=== PATIENT | male | born 1945 | race Caucasian/White ===

== ENCOUNTER → 2016-08-09 | Outpatient (CLI) | payer OTHER, BC ==
[~2016-08-09] MED LIST: ATOR-26 PO; B-CO1CAP17 PO; B-COCAP2 PO; BYS/5 PO; CALC0.5C17 PO; CHOL2000 PO; CLOP1TAB15 PO; CYAN100020 PO; FOLI1TAB7 PO; INSPMPHMLG; IRON PO; IRON1CAP2 PO; MAGN400T6 PO; MISCCAP80 PO; MULT-190 PO; PANT40TA PO; ZVR400 PO
[2016-08-09 10:27] LABS: ESTIMATED AVERAGE GLUCOSE 157 mg/dl; HA1C FLAG Normal (Normal)
[2016-08-09 10:43] LABS: ALT/SGPT 41 U/L (12-78); BLOOD UREA NITROGEN 46 mg/dl (7-18); CALCIUM 9.5 mg/dl (8.5-10.1); CARBON DIOXIDE 23 mmol/L (21-32); CHLORIDE 113 mmol/L (98-107); CHOLESTEROL 83 mg/dl (0-200); GLUCOSE 87 mg/dl (70-99); POTASSIUM 5.6 mmol/L (3.5-5.1); SODIUM 144 mmol/L (136-145)
[2016-08-09 10:47] LABS: ALKALINE PHOSPHATASE 165 U/L (45-117); AST/SGOT 40 U/L (15-37); CHOLESTEROL/HDL RATIO 2.4; HDL CHOLESTEROL 35 mg/dl; LDL CHOLESTEROL CALCULATED 37 mg/dl; PHOSPHORUS 2.3 mg/dl (2.5-4.9); TRIGLYCERIDES 54 mg/dl (0-150); VERY LOW DENSITY LIPOPROT CALC 11 mg/dl
== END | disposition home or self-care (01) ==
LOC: C.LAB1850 09:04
PROVIDERS: ATTEND Internal Medicine Endocrinology, Diabetes & Metabolism
DX: E10.21 Type 1 diabetes mellitus with diabetic nephropathy (principal)

== ENCOUNTER → 2016-10-03 | Outpatient (CLI) | payer OTHER, BC ==
[~2016-10-03] MED LIST changes: +CALC0.5C PO; -CALC0.5C17 PO; +CIPR-255 PO; +HYDR-3419 PO; +OXYC7.5T65 PO; +PHEN-775 PO
[2016-10-03 12:06] LABS: HEMATOCRIT 35.5 % (42-52); MEAN CELL VOLUME 97.5 fL (80-100); MEAN CORPUSCULAR HEMOGLOBIN 32.7 pg (25-34); MEAN CORPUSCULAR HGB CONC 33.5 g/dl (32-36); MEAN PLATELET VOLUME 9.8 fL (7.4-10.4); PLATELET COUNT 172 K/uL (130-400); RED BLOOD COUNT 3.64 M/uL (4.7-6.1); WHITE BLOOD COUNT 8.05 K/uL (4.8-10.8)
[2016-10-03 12:19] LABS: CALCIUM 9.4 mg/dl (8.5-10.1)
[2016-10-03 12:25] LABS: BLOOD UREA NITROGEN 51 mg/dl (7-18); BUN/CREATININE RATIO 23.1 (10-20); CARBON DIOXIDE 25 mmol/L (21-32); CHLORIDE 112 mmol/L (98-107); GLUCOSE 92 mg/dl (70-99); PHOSPHORUS 2.9 mg/dl (2.5-4.9); SODIUM 143 mmol/L (136-145)
[2016-10-03 12:46] LABS: URINE PROTIEN/CREAT RATIO 0.6 (0-0.2); URINE TOTAL PROTEIN 57.7 mg/dl (0-11.9)
[2016-10-03 12:55] LABS: URINE APPEARANCE CLEAR (CLEAR); URINE BILIRUBIN NEG (NEG); URINE COLOR YELLOW; URINE EPITHELIAL CELL AUTO 0-5 /lpf (0-5); URINE NITRITE NEG (NEG); URINE SPECIFIC GRAVITY 1.016 (1.000-1.030); UROBILINOGEN NEG (NEG)
[2016-10-03 13:09] LABS: MANUAL MICROSCOPIC REQUIRED? NO; REVIEW REQ? NO
== END | disposition home or self-care (01) ==
LOC: C.LAB1850 10:33
PROVIDERS: ATTEND Internal Medicine Nephrology
DX: N18.3 Chronic kidney disease, stage 3 (moderate) (principal); I12.9 Hypertensive chronic kidney disease with stage 1 through stage 4 chronic kidney disease, or unspecified chronic kidney disease; N25.81 Secondary hyperparathyroidism of renal origin; D64.9 Anemia, unspecified

== ENCOUNTER → 2016-11-11 | Outpatient (CLI) | payer OTHER, BC ==
[2016-11-11 12:24] LABS: BASO ABS # 0.06 K/uL (0-0.2); COMPLETE YES; EOS % 4.4 %; HEMATOCRIT 36.2 % (42-52); IG% 0.2 %; LYMPH % 16.1 %; LYMPH ABS # 0.92 K/uL (1.2-3.4); MEAN CELL VOLUME 96.3 fL (80-100); MEAN CORPUSCULAR HEMOGLOBIN 32.2 pg (25-34); MEAN CORPUSCULAR HGB CONC 33.4 g/dl (32-36); MEAN PLATELET VOLUME 9.8 fL (7.4-10.4); MONO % 15.2 %; NEUT % 63.1 %; PLATELET COUNT 166 K/uL (130-400); RED BLOOD COUNT 3.76 M/uL (4.7-6.1); WHITE BLOOD COUNT 5.72 K/uL (4.8-10.8)
[2016-11-11 12:44] LABS: BLOOD UREA NITROGEN 47 mg/dl (7-18); BUN/CREATININE RATIO 22.1 (10-20); CARBON DIOXIDE 22 mmol/L (21-32); CHLORIDE 110 mmol/L (98-107); GLUCOSE 136 mg/dl (70-99); POTASSIUM 4.9 mmol/L (3.5-5.1); SODIUM 142 mmol/L (136-145)
[2016-11-11 12:45] LABS: ESTIMATED AVERAGE GLUCOSE 148 mg/dl; HA1C FLAG Normal (Normal); PHOSPHORUS 2.8 mg/dl (2.5-4.9)
[2016-11-11 12:58] LABS: RATIO 194.6 mcg/mg (0-30.0)
--- NOTE | 2016-11-15 11:45 | CODING QUERY MEDICAL NECESSITY ---
SUPPORTING DIAGNOSIS NEEDED Dr. Vogel, A supporting diagnosis is required for the test/procedure performed on this patient in order for us to be reimbursed by the patient's insurance. Please provide a supporting diagnosis for the following test/procedure listed below next to the test name along with your signature. *If there is no additional diagnosis for this patient that would support the following test/procedure please document that below next to the test/procedure. Test(s)/Procedure(s) that require a supporting diagnosis: * ([id number]) VITAMIN D ASSAY DIAGNOSIS: DATE OF SERVICE: 11/11/16 Provider Signature: Date: Thank you [facility] Information Management Once completed, please kindly fax back to [phone] For questions please call [phone]
== END | disposition home or self-care (01) ==
LOC: C.LAB1850 10:30
PROVIDERS: ATTEND Internal Medicine Endocrinology, Diabetes & Metabolism
DX: Z98.890 Other specified postprocedural states (principal); E10.40 Type 1 diabetes mellitus with diabetic neuropathy, unspecified; K90.9 Intestinal malabsorption, unspecified; N18.3 Chronic kidney disease, stage 3 (moderate)

== ENCOUNTER → 2016-12-05 | Outpatient (CLI) | payer OTHER, BC ==
[~2016-12-05] MED LIST changes: -CALC0.5C PO; +CALC0.5C17 PO; -CIPR-255 PO; -OXYC7.5T65 PO; -PHEN-775 PO
--- NOTE | 2016-12-05 15:00 | DIAGNOSTIC IMAGING REPORT ---
KUB CLINICAL HISTORY: NEPHROLITHIASIS, RIGHT URETERAL STONES nephrocalcinosis COMPARISON STUDY: 12/28/2015 FINDINGS: The soft tissues, psoas shadows, renal outlines and intestinal gas pattern appear normal. There is no evidence for bowel obstruction. No abnormal abdominal calcifications are seen. Stable postoperative changes left upper quadrant. Pelvic vascular calcifications. Nonobstructive bowel pattern. IMPRESSION: Negative study. No change from the prior exam. Electronically signed by: Conner Hadley M.D. 12/05/2016 2:59 PM Dictated Date/Time: 12/05/2016 2:58 PM
[2016-12-05 16:36] LABS: HEMATOCRIT 34.9 % (42-52); MEAN CELL VOLUME 97.2 fL (80-100); MEAN CORPUSCULAR HEMOGLOBIN 32.3 pg (25-34); MEAN CORPUSCULAR HGB CONC 33.2 g/dl (32-36); MEAN PLATELET VOLUME 9.9 fL (7.4-10.4); PLATELET COUNT 165 K/uL (130-400); RED BLOOD COUNT 3.59 M/uL (4.7-6.1); WHITE BLOOD COUNT 7.13 K/uL (4.8-10.8)
[2016-12-05 16:37] LABS: URINE APPEARANCE CLEAR (CLEAR); URINE BILIRUBIN NEG (NEG); URINE COLOR YELLOW; URINE NITRITE NEG (NEG); UROBILINOGEN NEG (NEG); ZZUR CULT IF INDIC CLEAN CATCH NO
[2016-12-05 16:39] LABS: MANUAL MICROSCOPIC REQUIRED? NO; REVIEW REQ? NO
[2016-12-05 17:08] LABS: BLOOD UREA NITROGEN 52 mg/dl (7-18); BUN/CREATININE RATIO 23.7 (10-20); CALCIUM 9.4 mg/dl (8.5-10.1); CARBON DIOXIDE 22 mmol/L (21-32); CHLORIDE 113 mmol/L (98-107); GLUCOSE 152 mg/dl (70-99); POTASSIUM 4.9 mmol/L (3.5-5.1); SODIUM 142 mmol/L (136-145)
[2016-12-05 17:11] LABS: URINE PROTIEN/CREAT RATIO 0.6 (0-0.2); URINE TOTAL PROTEIN 69.5 mg/dl (0-11.9)
[2016-12-05 17:13] LABS: PHOSPHORUS 2.6 mg/dl (2.5-4.9); PROSTATE SPECIFIC ANTIGEN 0.264 ng/ml (0.000-4.000)
== END | disposition home or self-care (01) ==
LOC: C.RAD1850 14:40
PROVIDERS: ATTEND Urology
DX: N20.1 Calculus of ureter (principal); N18.3 Chronic kidney disease, stage 3 (moderate); I12.9 Hypertensive chronic kidney disease with stage 1 through stage 4 chronic kidney disease, or unspecified chronic kidney disease; R60.9 Edema, unspecified; D64.9 Anemia, unspecified; Z12.5 Encounter for screening for malignant neoplasm of prostate; N20.0 Calculus of kidney

== ENCOUNTER → 2017-02-12 | Outpatient (CLI) | payer OTHER, BC ==
--- NOTE | 2017-02-12 08:14 | DIAGNOSTIC IMAGING REPORT ---
ABD/PELVIS NO IV OR ORAL CONT CT DOSE: 839.42 mGy.cm HISTORY: Nephrocalcinosis N20.0 Nephrolithiasis latex [id number] TECHNIQUE: Multiaxial CT images of the abdomen and pelvis were performed without contrast. A dose lowering technique was utilized adhering to the principles of ALARA. COMPARISON STUDY: 01/29/2015 FINDINGS: Chronic pleural and parenchymal change left base. Several calcifications within the left renal pelvis measuring up to 8 mm. No evidence for true obstructive change. Increased number renal calcifications bilaterally although again no true obstructing calculus is identified. Several calcifications occupy the left renal pelvis however. Postoperative changes previously described are stable. Bowel pattern is nonobstructive. IMPRESSION: 1. Bilateral renal calcifications progressive from the prior study of 2014. 2. Several calcifications within the left renal pelvis considered nonobstructive given the lack of hydronephrosis. These measure up to 8 mm. 3. Nonobstructive bowel pattern with stable postoperative change The above report was generated using voice recognition software. It may contain grammatical, syntax or spelling errors. Electronically signed by: Conner Hadley M.D. 02/12/2017 8:13 AM Dictated Date/Time: 02/12/2017 7:52 AM
--- NOTE | 2017-02-12 10:18 | DIAGNOSTIC IMAGING REPORT ---
KUB CLINICAL HISTORY: NEPHROLITHIASIS nephrocalcinosis COMPARISON STUDY: 12/05/2016 FINDINGS: Nonobstructive bowel pattern. Stable postoperative changes overlying the left flank and left kidney. Possible left renal calcifications versus postoperative change mid left kidney. If so, this is present on the prior study. Right kidney is effectively obscured by overlying bowel content the possibility of a small calcification lower pole considered. IMPRESSION: Difficult study to interpret due to overlapping postoperative change and bowel content. Possible stable bilateral nephrocalcinosis. The above report was generated using voice recognition software. It may contain grammatical, syntax or spelling errors. Electronically signed by: Conner Hadley M.D. 02/12/2017 10:17 AM Dictated Date/Time: 02/12/2017 10:16 AM
== END | disposition home or self-care (01) ==
LOC: C.CTS 07:32
PROVIDERS: ATTEND Urology
DX: N20.0 Calculus of kidney (principal)

== ENCOUNTER → 2017-02-17 | Outpatient (CLI) | payer OTHER, BC ==
--- NOTE | 2017-02-17 13:39 | DIAGNOSTIC IMAGING REPORT ---
CHEST 2 VIEWS ROUTINE CLINICAL HISTORY: N20.0 [id number] nephrocalcinosis COMPARISON STUDY: 09/12/2015 FINDINGS: Chronic pleural and parenchymal change left base. Prior median sternotomy. Permanent bipolar cardiac pacemaker. Right lung is clear. IMPRESSION: Chronic and postoperative change left base . No acute process. The above report was generated using voice recognition software. It may contain grammatical, syntax or spelling errors. Electronically signed by: Conner Hadley M.D. 02/17/2017 1:37 PM Dictated Date/Time: 02/17/2017 1:37 PM
== END | disposition home or self-care (01) ==
LOC: C.RAD1850 13:10
PROVIDERS: ATTEND Urology
DX: N20.0 Calculus of kidney (principal); Z98.890 Other specified postprocedural states

== ENCOUNTER → 2017-02-17 | Outpatient (CLI) | payer OTHER, BC ==
[2017-02-17 14:17] LABS: BASO % 0.6 %; BASO ABS # 0.04 K/uL (0-0.2); COMPLETE YES; EOS % 1.9 %; HEMATOCRIT 33.1 % (42-52); IG% 0.3 %; LYMPH % 12.7 %; LYMPH ABS # 0.85 K/uL (1.2-3.4); MEAN CELL VOLUME 95.7 fL (80-100); MEAN CORPUSCULAR HEMOGLOBIN 32.4 pg (25-34); MEAN CORPUSCULAR HGB CONC 33.8 g/dl (32-36); MEAN PLATELET VOLUME 9.8 fL (7.4-10.4); MONO % 12.3 %; NEUT % 72.2 %; PLATELET COUNT 163 K/uL (130-400); RED BLOOD COUNT 3.46 M/uL (4.7-6.1); WHITE BLOOD COUNT 6.69 K/uL (4.8-10.8)
[2017-02-17 14:52] LABS: BLOOD UREA NITROGEN 43 mg/dl (7-18); BUN/CREATININE RATIO 21.4 (10-20); CALCIUM 9.5 mg/dl (8.5-10.1); CARBON DIOXIDE 20 mmol/L (21-32); CHLORIDE 113 mmol/L (98-107); GLUCOSE 115 mg/dl (70-99); POTASSIUM 4.9 mmol/L (3.5-5.1); SODIUM 143 mmol/L (136-145)
== END | disposition home or self-care (01) ==
LOC: C.LAB1850 13:40
PROVIDERS: ATTEND Urology
DX: N20.0 Calculus of kidney (principal)

== ENCOUNTER → 2017-02-21 | Outpatient (CLI) | payer OTHER, BC ==
[~2017-02-21] MED LIST changes: -B-COCAP2 PO; -HYDR-3419 PO; -IRON PO
[2017-02-21 13:15] LABS: ESTIMATED AVERAGE GLUCOSE 151 mg/dl; HA1C FLAG Normal (Normal)
== END | disposition home or self-care (01) ==
LOC: C.LAB1850 10:50
PROVIDERS: ATTEND Internal Medicine Endocrinology, Diabetes & Metabolism
DX: E10.21 Type 1 diabetes mellitus with diabetic nephropathy (principal); E10.22 Type 1 diabetes mellitus with diabetic chronic kidney disease; N18.3 Chronic kidney disease, stage 3 (moderate)

== ENCOUNTER 2017-02-28 17:23 | Emergency (ER) | payer OTHER, BC ==
[~2017-02-28] VITALS: Ht 177.8 cm; Wt 92.7 kg
[~2017-02-28 17:23] MED LIST changes: -ATROPINE SULFATE 0.1 MG/ML 5ML SYR IV PRN; -CIPROFLOXACIN 400MG / D5W IV SCH; -EpHEDrine SULFATE INJ 50 MG/ML AMP IV PRN; -FENTANYL CITRATE INJ 50 MCG/1 ML 2 ML VIAL IV PRN; -FENTANYL CITRATE INJ 50 MCG/1 ML 2 ML VIAL ONE; -LACTATED RINGER'S 1000ML 1,000 ML IV SCH; -LIDOCAINE HCL 2% 2 ML VIAL (20MG/ML) ONE; -MIDAZOLAM HCL 1 MG/ML 2ML VIAL ONE; -ONDANSETRON INJ 2 MG/ML 2 ML VIAL IV PRN; -ONDANSETRON INJ 2 MG/ML 2 ML VIAL ONE; -PROPOFOL IV EMULSION 10 MG/ML 20 ML VIAL IV ONE
[2017-02-28 17:33] VITALS: TEMP 36.4; Ht 177.8 cm; Wt 92.7 kg
[2017-02-28] MEDS ORDERED: FENTANYL CITRATE INJ 50 MCG/1 ML 2 ML VIAL IV STA (18:13)
[2017-02-28] MEDS ORDERED: SODIUM CHLORIDE 0.9% 1000ML 1,000 ML IV STA ×2 (18:13→20:12)
[2017-02-28] MEDS ORDERED: ONDANSETRON 8 MG/54 ML D5W IV STA (18:13)
--- NOTE | 2017-02-28 18:19 | EMERGENCY ROOM VISIT NOTE ---
History Report prepared by Vinh: Tammie Bryant Under the Supervision of: Dr. Gabbi Salcido D.O. First contact with patient: 18:03 Chief Complaint: URINARY SYMPTOMS Stated Complaint: COMPLICATIONS FROM LIPOTRIPSY TODAY Nursing Triage Summary: pt had lithotripsy done this afternoon. on his way home pt had sudden onset of nausea, left flank pain. patietn referred to ER per referral Raffy garrison EKG, KUB xray and labs History of Present Illness The patient is a 71 year old male who presents to the Emergency Room with complaints of constant left flank pain beginning this afternoon. The patient states that he has a history of kidney stones and has passed about 12 kidney stones over the last 2 and a half years. He reports that he currently has a very large kidney stone and one that is smaller on the left that he had a procedure this afternoon on to break up. States initially had some "soreness" after the procedure but the more intense pain started once he arrived home. He notes that this is his first lithotripsy and he did not experience any unexpected pain after the procedure. The patient complains of nausea, dry heaves , loose stools, and pain that is similar to his previous kidney stones. States sx are now slowly improving. He denies any groin pain, testicular pain, blood in the urine, fever, chills, palpitations, chest pain, shortness of breath, cough, and cold symptoms. He reports that he does feel dehydrated from the procedure prep today. The patient notes that the has a history of diabetes. Source of History: patient Onset: this afternoon Position: other (left flank) Timing: constant Associated Symptoms: + nausea, + diarrhea, No fevers, No chills, No cough, No chest pain, No SOB Note: The patient complains of dry heaves and pain that is similar to his previous kidney stones. He denies any groin pain, testicular pain, blood in the urine, palpitations, and cold symptoms. Review of Systems See HPI for pertinent positives & negatives. A total of 10 systems reviewed and were otherwise negative. Past Medical & Surgical Medical Problems: (1) Anemia (2) Basal cell carcinoma of left forehead (3) Bleeding (4) Chronic kidney disease (5) Diabetes (6) Diabetic foot ulcer associated with type 1 diabetes mellitus (7) Diabetic peripheral neuropathy associated with type 1 diabetes mellitus (8) Foot deformity (9) Heart disease (10) History of diabetic ulcer of foot (11) Hypertension (12) Kidney failure (13) Kidney stones (14) Kidney stones (15) Loss of sensation (16) Renal tubular acidosis, type 4 (17) Stomach problems (18) Ulcer Surgical Problems: (1) Aortic valve replaced (2) Hx of CABG (3) Hx of CABG (4) S/P triple vessel bypass Family History Cancer Diabetes mellitus FH: heart attack Gallbladder disease Heart disease Hypertension Social History Smoking Status: Never Smoker Drug Use: none Marital Status: Housing Status: lives with significant other Occupation Status: retired Current/Historical Medications Scheduled Acyclovir (Acyclovir), 400 MG PO QPM Atorvastatin (Lipitor), 80 MG PO QPM Calcitriol (Calcitriol), 0.5 MCG PO QAM Cholecalciferol (Vitamin D3), 1 CAP PO QAM Clopidogrel (Plavix), 75 MG PO QPM Cyanocobalamin (Vitamin B12), 1 TAB PO QAM Folic Acid (Folvite), 1 CAP PO QAM Insulin Human Lispro (Insulin Humalog Pump ), 1 EA N/A UD Iron Combinations (Iron Complex), 65 MG PO QAM Magnesium Oxide (Mag-Ox), 400 MG PO BID Ocuvite Preservision (Ocuvite Preservision), 1 TAB PO BID Pantoprazole (Protonix), 40 MG PO QAM Probiotic Product (Probiotic), 1 CAP PO QAM Vitamin B Cmplx/Vitc/Folic Ac (Nephrocaps), 1 CAP PO QAM Scheduled PRN Hydrocodon/Acetaminophen 5MG/300MG (Vicodin (5MG/300MG)), 1 TAB PO Q4H PRN for Pain Nebivolol Hcl (Bystolic), 5 MG PO BID PRN for BP VALUES Allergies Coded Allergies: No Known Allergies (Verified , 02/28/17) Physical Exam Vital Signs Date Time Temp Pulse Resp B/P (MAP) Pulse Ox O2 Delivery O2 Flow Rate FiO2 02/28/17 23:07 77 16 132/72 98 02/28/17 22:42 66 18 144/86 99 Room Air 02/28/17 21:25 66 16 144/101 100 Room Air 02/28/17 19:25 60 02/28/17 19:09 65 18 136/103 99 Room Air 02/28/17 17:33 36.4 49 20 144/76 97 Room Air Physical Exam GENERAL: alert, well appearing, well nourished, no distress, non-toxic EYE EXAM: normal conjunctiva, PERRL and EOM's grossly intact OROPHARYNX: no exudate, no erythema, lips, buccal mucosa, and tongue normal and mucous membranes are moist NECK: supple, no nuchal rigidity, no adenopathy, non-tender LUNGS: Clear to auscultation. Normal chest wall mechanics HEART: no murmurs, S1 normal and S2 normal ABDOMEN: abdomen soft, left lateral abdominal tenderness, normo-active bowel sounds, no masses, no rebound or guarding. BACK: Back is symmetrical on inspection and there is no deformity, no midline tenderness, no CVA tenderness. SKIN: no rashes and no bruising UPPER EXTREMITIES: upper extremities are grossly normal. LOWER EXTREMITIES: Trace bilateral lower extremity edema. NEURO EXAM: Normal sensorium, cranial nerves II-XII grossly intact, normal speech, no gross weakness of arms, no gross weakness of legs. Medical Decision & Procedures ER Provider Diagnostic Interpretation: Radiology results have been interpreted by the radiologist and reviewed by me. KUB FINDINGS: The presence of gas and stool degrade evaluation of the kidneys for calculi. Allowing for this, the previously noted calculus along the course of the left ureter is unchanged in position, projecting over the L3-4 level. Additional prominent left renal calculus again noted. The presence of additional bilateral renal calculi are better visualized on prior CT from 02/12/2017. Diffuse atherosclerosis. Nonobstructive bowel gas pattern. Degenerative changes of the lower spine. IMPRESSION: 1. No change in position of the proximal left ureteral calculus at the level of L3-4. 2. Bilateral nephrolithiasis better visualized on CT from 02/12/2017. Electronically signed by: Ez Salazar M.D. 02/28/2017 9:08 PM Dictated Date/Time: 02/28/2017 9:05 PM Laboratory Results 02/28/17 18:58 Red Blood Count 3.71, Mean Corpuscular Volume 94.6, Mean Corpuscular Hemoglobin 32.6, Mean Corpuscular Hemoglobin Concent 34.5, Mean Platelet Volume 9.5, Neutrophils (%) (Auto) 80.7, Lymphocytes (%) (Auto) 9.0, Monocytes (%) (Auto) 8.9, Eosinophils (%) (Auto) 0.7, Basophils (%) (Auto) 0.4, Neutrophils # (Auto) 5.99, Lymphocytes # (Auto) 0.67, Monocytes # (Auto) 0.66, Eosinophils # (Auto) 0.05, Basophils # (Auto) 0.03 02/28/17 18:58 02/28/17 20:34 Test 02/28/17 18:58 02/28/17 20:34 02/28/17 22:10 White Blood Count 7.42 K/uL (4.8-10.8) Red Blood Count 3.71 M/uL (4.7-6.1) Hemoglobin 12.1 g/dL (14.0-18.0) Hematocrit 35.1 % (42-52) Mean Corpuscular Volume 94.6 fL (80-100) Mean Corpuscular Hemoglobin 32.6 pg (25-34) Mean Corpuscular Hemoglobin Concent 34.5 g/dl (32-36) Platelet Count 149 K/uL (130-400) Mean Platelet Volume 9.5 fL (7.4-10.4) Neutrophils (%) (Auto) 80.7 % Lymphocytes (%) (Auto) 9.0 % Monocytes (%) (Auto) 8.9 % Eosinophils (%) (Auto) 0.7 % Basophils (%) (Auto) 0.4 % Neutrophils # (Auto) 5.99 K/uL (1.4-6.5) Lymphocytes # (Auto) 0.67 K/uL (1.2-3.4) Monocytes # (Auto) 0.66 K/uL (0.11-0.59) Eosinophils # (Auto) 0.05 K/uL (0-0.5) Basophils # (Auto) 0.03 K/uL (0-0.2) RDW Standard Deviation 45.7 fL (36.4-46.3) RDW Coefficient of Variation 13.2 % (11.5-14.5) Immature Granulocyte % (Auto) 0.3 % Immature Granulocyte # (Auto) 0.02 K/uL (0.00-0.02) Anion Gap 3.0 mmol/L (3-11) Est Creatinine Clear Calc Drug Dose 34.2 ml/min Estimated GFR () 33.2 Estimated GFR (Non- 28.7 BUN/Creatinine Ratio 19.0 (10-20) Calcium Level 9.2 mg/dl (8.5-10.1) Total Bilirubin 1.7 mg/dl (0.2-1) Alanine Aminotransferase (ALT/SGPT) 34 U/L (12-78) Alkaline Phosphatase 150 U/L (45-117) Troponin I < 0.015 ng/ml (0-0.045) Total Protein 7.1 gm/dl (6.4-8.2) Albumin 3.5 gm/dl (3.4-5.0) Globulin 3.6 gm/dl (2.5-4.0) Albumin/Globulin Ratio 1.0 (0.9-2) Aspartate Amino Transf (AST/SGOT) 26 U/L (15-37) Urine Color YELLOW Urine Appearance CLEAR (CLEAR) Urine pH 6.0 (4.5-7.5) Urine Specific [place] 1.010 (1.000-1.030) Urine Protein 1+ (NEG) Urine Glucose (UA) NEG (NEG) Urine Ketones NEG (NEG) Urine Occult Blood 3+ (NEG) Urine Nitrite NEG (NEG) Urine Bilirubin NEG (NEG) Urine Urobilinogen NEG (NEG) Urine Leukocyte Esterase TRACE (NEG) Urine WBC (Auto) 1-5 /hpf (0-5) Urine RBC (Auto) >30 /hpf (0-4) Urine Hyaline Casts (Auto) 1-5 /lpf (0-5) Urine Epithelial Cells (Auto) 5-10 /lpf (0-5) Urine Bacteria (Auto) NEG (NEG) Laboratory results per my review. Medications Administered Medications (Trade) Dose Ordered Sig/Lc Route Start Time Stop Time Status Last Admin Dose Admin Sodium Chloride 1,000 ml @ 999 mls/hr Q1H1M STAT IV 02/28/17 18:13 02/28/17 19:13 DC 02/28/17 19:08 999 MLS/HR Ondansetron HCl (Zofran 8mg Iv) 8 mg NOW STAT IV 02/28/17 18:13 02/28/17 18:16 DC 02/28/17 19:09 8 MG Fentanyl Citrate (Fentanyl Inj) 50 mcg NOW STAT IV 02/28/17 18:13 02/28/17 18:16 DC 02/28/17 19:09 50 MCG ECG Indication: nausea Rate (beats per minute): 63 Rhythm: other (paced) Findings: no acute ischemic change, other (normal QTC) ED Course 1802: The patient was evaluated in room C9. A complete history and physical exam was performed. 1812: Fentanyl Inj 50mcg IV, Zofran 8mg IV, Sodium Chloride 1000 ml @ 999 mls/ hr IV. 2011: Sodium Chloride 1000 ml @ 250 mls/hr IV. 2052: I spoke to Dr. Akbar and reevaluated the patient. He is having no pain or nausea. 2210: I reevaluated and updated the patient. The patient tolerated PO and has no reoccurrence of his pain. 2257: Upon reevaluation, the patient is feeling better. I discussed the findings and the treatment plan with the patient. He verbalizes agreement and understanding. The patient was discharged home. Medical Decision Differential diagnosis: Etiologies such as renal colic, appendicitis, diverticulitis, mesenteric ischemia, aortic pathology, infections, inflammatory bowel disease, PUD, biliary pathology, UTI, as well as others were entertained. Pt's Cr appears stable compared to baseline. No evidence of infection. Pt with no recurrence of any pain or vomiting. Tolerated po and was ambulating without difficulty. Offered additional pain meds and he declined. Discussed close f/u with Dr. Akbar, use of meds at home, sx to watch/return for, continued careful monitoring of his blood sugar and kidney function. He and family verbalized understanding of all of this and were agreeable with plan. I feel pt likely had ureteral spasm following the procedure although pt states he doesn't feel he passed any discrete stones yet. No evidence of bacteremia/ sepsis, doubt acute procedural complication at this time. Medication Reconcilliation Current Medication List: was personally reviewed by me Blood Pressure Screening Patient's blood pressure: Elevated blood pressure Blood pressure disposition: Elevated BP felt to be situational Impression Primary Impression: Renal colic Additional Impression: Hematuria Scribe Attestation The scribe's documentation has been prepared under my direction and personally reviewed by me in its entirety. I confirm that the note above accurately reflects all work, treatment, procedures, and medical decision making performed by me. Departure Information Dispostion Home / Self-Care Referrals Jamar Solo M.D. (PCP) Forms HOME CARE DOCUMENTATION FORM, IMPORTANT VISIT INFORMATION Patient Instructions My [facility] Additional Instructions Please call and follow-up with your urologist. You may use the pain and nausea medicines you were previously prescribed. If you have any recurrent or worsening pain, develop vomiting, fevers/chills, are unable to urinate, or you have any other new or concerning symptoms, please return to the emergency room. Problem Qualifiers Additional Impression: Hematuria Hematuria type: unspecified type Qualified Codes: R31.9 - Hematuria, unspecified
[2017-02-28 19:09] LABS: BASO % 0.4 %; BASO ABS # 0.03 K/uL (0-0.2); COMPLETE YES; EOS % 0.7 %; HEMATOCRIT 35.1 % (42-52); IG% 0.3 %; LYMPH ABS # 0.67 K/uL (1.2-3.4); MEAN CELL VOLUME 94.6 fL (80-100); MEAN CORPUSCULAR HEMOGLOBIN 32.6 pg (25-34); MEAN CORPUSCULAR HGB CONC 34.5 g/dl (32-36); MEAN PLATELET VOLUME 9.5 fL (7.4-10.4); MONO % 8.9 %; NEUT % 80.7 %; PLATELET COUNT 149 K/uL (130-400); RED BLOOD COUNT 3.71 M/uL (4.7-6.1); WHITE BLOOD COUNT 7.42 K/uL (4.8-10.8)
[2017-02-28 19:47] LABS: ALKALINE PHOSPHATASE 150 U/L (45-117); ALT/SGPT 34 U/L (12-78); BLOOD UREA NITROGEN 42 mg/dl (7-18); CALCIUM 9.2 mg/dl (8.5-10.1); CARBON DIOXIDE 28 mmol/L (21-32); CHLORIDE 106 mmol/L (98-107); GLUCOSE 138 mg/dl (70-99); SODIUM 137 mmol/L (136-145)
[2017-02-28 21:06] LABS: POTASSIUM 4.9 mmol/L (3.5-5.1)
--- NOTE | 2017-02-28 21:09 | DIAGNOSTIC IMAGING REPORT ---
[facility] CLINICAL HISTORY: 71 years-old Male presenting with kidney stone left s/p lithotripsy. TECHNIQUE: Single supine view of the abdomen was obtained. COMPARISON: 02/28/2017. FINDINGS: The presence of gas and stool degrade evaluation of the kidneys for calculi. Allowing for this, the previously noted calculus along the course of the left ureter is unchanged in position, projecting over the L3-4 level. Additional prominent left renal calculus again noted. The presence of additional bilateral renal calculi are better visualized on prior CT from 02/12/2017. Diffuse atherosclerosis. Nonobstructive bowel gas pattern. Degenerative changes of the lower spine. IMPRESSION: 1. No change in position of the proximal left ureteral calculus at the level of L3-4. 2. Bilateral nephrolithiasis better visualized on CT from 02/12/2017. Electronically signed by: Ez Salazar M.D. 02/28/2017 9:08 PM Dictated Date/Time: 02/28/2017 9:05 PM
[2017-02-28 22:25] LABS: MANUAL MICROSCOPIC REQUIRED? NO; REVIEW REQ? NO; URINE APPEARANCE CLEAR (CLEAR); URINE BILIRUBIN NEG (NEG); URINE COLOR YELLOW; URINE NITRITE NEG (NEG); UROBILINOGEN NEG (NEG); ZZUR CULT IF INDIC CLEAN CATCH NO
[2017-02-28 23:07] VITALS: BP 132/72; PULSE 77; O2SAT 98
== END 2017-02-28 23:09 | disposition home or self-care (01) ==
LOC: C.EDB 17:24 → C.EDC 23:09
DX: N23 Unspecified renal colic (principal); R31.9 Hematuria, unspecified; D64.9 Anemia, unspecified; N18.9 Chronic kidney disease, unspecified; E10.9 Type 1 diabetes mellitus without complications; I10 Essential (primary) hypertension; N17.9 Acute kidney failure, unspecified; I51.9 Heart disease, unspecified; Z83.3 Family history of diabetes mellitus; Z82.49 Family history of ischemic heart disease and other diseases of the circulatory system

== ENCOUNTER → 2017-02-28 | Day surgery (SDC) | payer OTHER, BC ==
[2017-02-17 10:49] VITALS: Ht 179.1 cm; Wt 90.9 kg
[~2017-02-28] VITALS: Ht 179.1 cm; Wt 90.9 kg
[~2017-02-28] MED LIST changes: +ATROPINE SULFATE 0.1 MG/ML 5ML SYR IV PRN; +CIPROFLOXACIN 400MG / D5W IV SCH; +EpHEDrine SULFATE INJ 50 MG/ML AMP IV PRN; +FENTANYL CITRATE INJ 50 MCG/1 ML 2 ML VIAL IV PRN; +FENTANYL CITRATE INJ 50 MCG/1 ML 2 ML VIAL ONE; +HYDR-3419 PO; +LACTATED RINGER'S 1000ML 1,000 ML IV SCH; +LIDOCAINE HCL 2% 2 ML VIAL (20MG/ML) ONE; +MIDAZOLAM HCL 1 MG/ML 2ML VIAL ONE; +ONDANSETRON INJ 2 MG/ML 2 ML VIAL IV PRN; +ONDANSETRON INJ 2 MG/ML 2 ML VIAL ONE; +PROPOFOL IV EMULSION 10 MG/ML 20 ML VIAL IV ONE
--- NOTE | 2017-02-28 08:59 | DIAGNOSTIC IMAGING REPORT ---
KUB HISTORY: Follow-up study to assess nephrolithiasis NEPHROLITHIASIS COMPARISON: KUB 02/12/[address] 02/12/2017. FINDINGS: The bowel gas pattern is non-obstructive. There is no organomegaly. Bilateral nephrolithiasis redemonstrated. 1.2 cm calculus of the left kidney redemonstrated. There is a 9 mm calcification at the level of L3-L4 suggesting a proximal to mid left ureteral calculus. Vascular calcifications are noted. Surgical suture material and clips are seen within the left upper abdomen associated with patient history of prior gastric bypass. No pneumoperitoneum or pneumatosis. No fracture. There are degenerative changes of the spine and hips. IMPRESSION: 1. Bilateral nephrolithiasis with 9 mm calcification at the level of L3-L4 suspicious for a left ureteral calculus. Follow-up recommended. 2. Nonobstructive bowel gas pattern. Electronically signed by: Ranjit Boothe M.D. 02/28/2017 8:58 AM Dictated Date/Time: 02/28/2017 8:53 AM
--- NOTE | 2017-02-28 12:03 | History & Physical Bridge - SC ---
H&P Re-Evaluation Bridge Note: I have examined the patient, reviewed the History & Physical and in the interval since the performance of the History & Physical I have noted the following changes of clinical significance: No changes noted The [employer] pacemaker rep states they do not need to be available and have given instructions to anesthesia regarding the pacemaker management . I called and requested that they come when available to check the pacemaker and have not heard back from the switch crew supervisor . In addition it appears a stone has dropped into the proximal ureter . This was the report and I called and had Dr. Tidwell review and felt sure that this was the case as well as no corresponding calcification seen on the ct in the area of the presumed stone . The pt is not having pain but has been off plavix and wishes to proceed and not wait a week or until we can have a pacemaker rep here. Will make sure the stone is visible prior to giving pt anesthesia
--- NOTE | 2017-02-28 12:50 | [facility] Post Operative Brief Note ---
Immediate Operative Summary Operative Date Feb 28, 2017. Pre-Operative Diagnosis Left Ureteral Stone Post-Operative Diagnosis Same Procedure(s) Performed Left Extracorporeal Shock wave Lithotripsy Surgeon Dr. Akbar Pelt Inspector Surgeon(s) None Estimated Blood Loss None Findings a calcification that appeared in l ureter area hit Specimens None Disposition Recovery Room / PACU
--- NOTE | 2017-02-28 12:52 | Discharge Instructions-SurgCtr ---
Discharge Instructions Date of Service Feb 28, 2017. Visit Reason for Visit: Stones Discharge Discharge Diagnosis / Problem: left ureteral stone Discharge Goals Goal(s): Decrease discomfort Medications Stopped Medications Name(s): Plavix Activity Recommendations Activity Limitations: per Instructions/Follow-up section Anesthesia . Post Anesthesia Instructions: If you have had General Anesthesia or IV Sedation: * Do not drive today. * Resume driving when surgeon permits. * Do not make important decisions or sign legal documents today. * Call surgeon for: 1. Temperature elevations greater than 101 degrees F. 2. Uncontrollable pain. 3. Excessive bleeding. 4. Persistent nausea and vomiting. 5. Medication intolerance (nausea, vomiting or rash). * For nausea and vomiting use only clear liquids such as: tea, soda, bouillon until nausea subsides, then gradually increase diet as tolerated. * If you have any concerns or questions, call your surgeon's office. If physician is unavailable and it is an emergency, call 911 or go to the nearest emergency room. . Diet Recommendations Home Diet: resume previous diet Procedures Procedures Performed: Left Extracorporeal Shock wave Lithotripsy Pending Studies Studies pending at discharge: no Medical Emergencies . Who to Call and When: Medical Emergencies: If at any time you feel your situation is an emergency, please call 911 immediately. . Non-Emergent Contact Non-Emergency issues call your: Urologist Call Non-Emergent contact if: temperature is above 101 . . "Provider Documentation" section prepared by Jean Akbar. .
[2017-02-28 13:56] VITALS: TEMP 36.4
--- NOTE | 2017-02-28 14:09 | Anesthesia Progress Nt - [facility] ---
Anesthesia Post Op Note Date & Time Feb 28, 2017 at 14:09 Vital Signs Pain Intensity: 3 Vital Signs Past 12 Hours Date Time Temp Pulse Resp B/P (MAP) Pulse Ox O2 Delivery O2 Flow Rate FiO2 02/28/17 13:56 36.4 63 20 165/89 (114) 96 Room Air 02/28/17 13:52 60 14 02/28/17 13:52 63 14 99 02/28/17 13:51 162/96 02/28/17 13:47 62 15 95 02/28/17 13:47 62 15 02/28/17 13:46 60 10 160/87 95 02/28/17 13:46 60 10 02/28/17 13:45 36.5 60 10 160/87 97 Room Air 02/28/17 13:41 63 12 162/87 99 02/28/17 13:41 63 12 02/28/17 13:36 60 13 02/28/17 13:36 62 13 183/94 99 02/28/17 13:31 64 17 182/113 100 02/28/17 13:31 66 17 02/28/17 13:26 62 5 02/28/17 13:26 63 5 171/99 100 02/28/17 13:21 68 19 175/85 100 02/28/17 13:21 64 19 02/28/17 13:16 60 24 02/28/17 13:16 65 24 148/79 100 02/28/17 13:11 60 02/28/17 13:11 60 148/76 100 02/28/17 13:06 62 22 142/75 100 02/28/17 13:06 60 22 02/28/17 13:01 72 10 144/74 100 02/28/17 13:01 59 10 02/28/17 12:57 144/92 02/28/17 12:56 36.6 60 16 144/92 100 Mask 6 02/28/17 10:38 36.6 65 18 159/86 (110) 97 Room Air Notes Mental Status: alert / awake / arousable, participated in evaluation Pt Amnestic to Procedure: Yes Nausea / Vomiting: adequately controlled Pain: adequately controlled Airway Patency, RR, SpO2: stable & adequate BP & HR: stable & adequate Hydration State: stable & adequate Anesthetic Complications: no major complications apparent Pacer functionality was not manipulated in any way for procedure and appears to be well functioning at discharge.
[2017-02-28 14:25] VITALS: BP 163/80; PULSE 58; O2SAT 99
--- NOTE | 2017-02-28 16:41 | OPERATIVE REPORT ---
DATE OF OPERATION: 02/28/2017 PREOPERATIVE DIAGNOSIS: Left renal and left ureteral stone. POSTOPERATIVE DIAGNOSIS: Same. PROCEDURE PERFORMED: Left ureteral ESWL. INDICATIONS: The patient is a 71-year-old male who takes Plavix and also who has a pacemaker who presented for a left renal ESWL. He did, however, have a KUB the morning of the procedure which showed a calcification which appeared to be a ureteral calcification in the mid to proximal ureter that had not previously been present on a KUB taken with a CAT scan a month ago. Because of this even though he is not having a lot of pain and the report suggested this was a ureteral stone, I called a second radiologist, Dr. Tidwell, to confirm that he felt that this was most likely a stone and could not find anything that correlated with this on CAT scan. Because of this, we proceeded to do left ureteral ESWL. There was some concern that his pacemaker, [employer], had given clear instructions to anesthesia who understood and did not need to use the magnet because the pacemaker was stable throughout the procedure. DESCRIPTION OF THE PROCEDURE: The patient was taken to the operating room where general anesthesia was administered and he was given 3000 shocks up to level 5 and because of being on Plavix did not go to level 6. The stone was quite light. It was unclear whether or not it fragmented completely because there was some visibility of it at the end of the procedure. He had Venodyne stockings placed and as previously stated, there were no problems with the heart rate or the pacemaker. At the end of the procedure, he was transferred to the recovery room in stable condition. I attest to the content of the Intraoperative Record and any orders documented therein. Any exception s are noted below.
== END | disposition home or self-care (01) ==
LOC: C.RAD1850 08:42
PROVIDERS: ATTEND Urology
DX: N20.2 Calculus of kidney with calculus of ureter (principal); E66.9 Obesity, unspecified; I25.10 Atherosclerotic heart disease of native coronary artery without angina pectoris; I12.9 Hypertensive chronic kidney disease with stage 1 through stage 4 chronic kidney disease, or unspecified chronic kidney disease; N18.3 Chronic kidney disease, stage 3 (moderate); M19.90 Unspecified osteoarthritis, unspecified site; E03.9 Hypothyroidism, unspecified; I73.9 Peripheral vascular disease, unspecified; I48.0 Paroxysmal atrial fibrillation; I44.2 Atrioventricular block, complete; E11.621 Type 2 diabetes mellitus with foot ulcer; L97.509 Non-pressure chronic ulcer of other part of unspecified foot with unspecified severity; Z79.4 Long term (current) use of insulin; Z95.1 Presence of aortocoronary bypass graft; Z86.010 Personal history of colon polyps; Z95.0 Presence of cardiac pacemaker; Z82.49 Family history of ischemic heart disease and other diseases of the circulatory system; Z83.3 Family history of diabetes mellitus

== ENCOUNTER → 2017-03-10 | Outpatient (CLI) | payer OTHER, BC | END | disposition home or self-care (01) | LOC: C.LABSPEC 17:38 | PROVIDERS: ATTEND Urology | DX: N20.0 Calculus of kidney (principal) ==

== ENCOUNTER → 2017-03-10 | Outpatient (CLI) | payer OTHER, BC ==
--- NOTE | 2017-03-10 08:50 | DIAGNOSTIC IMAGING REPORT ---
[facility] CLINICAL HISTORY: N20.0 [id number] COMPARISON STUDY: 02/28/2017 FINDINGS: Postsurgical changes are evident. There is a suture line within the left mid abdomen and surgical clips are present within the left upper quadrant. There is a 14 mm calcification projected over the left kidney, likely representing a calculus. There are small lower pole right renal calcifications consistent with calculi. There is a a 6 mm calcification at the L3-4 level to the left of midline. This could represent a proximal left ureteral calculus. IMPRESSION: 1. Bilateral nephrolithiasis 2. Possible 6 mm proximal left ureteral calculus at the L3-4 level. Electronically signed by: Rigo Jensen M.D. 03/10/2017 8:49 AM Dictated Date/Time: 03/10/2017 8:46 AM
== END | disposition home or self-care (01) ==
LOC: C.RAD1850 08:30
PROVIDERS: ATTEND Urology
DX: N20.0 Calculus of kidney (principal)

== ENCOUNTER 2017-03-20 06:36 | Day surgery (SDC) | payer OTHER, BC ==
[2017-03-13 11:40] VITALS: BMI 28.0
[~2017-03-20] VITALS: Ht 180.3 cm; Wt 90.9 kg
[2017-03-20] VITALS (9 sets, daily range): BP systolic 145–186; BP diastolic 67–89; PULSE 58–68; TEMP 36.3–37; O2SAT 98–100; Ht 180.3 cm; Wt 90.9 kg
[~2017-03-20 06:36] MED LIST changes: +CALC0.5C PO; -CALC0.5C17 PO; +CIPROFLOXACIN / D5W 400 MG IV SCH; +FENTANYL CITRATE INJ 50 MCG/1 ML 2 ML VIAL ONE; -HYDR-3419 PO; +LACTATED RINGER'S 1000ML 1,000 ML IV SCH; +LIDOCAINE HCL 2% 2 ML VIAL (20MG/ML) ONE; +ONDANSETRON INJ 2 MG/ML 2 ML VIAL ONE; +PROPOFOL IV EMULSION 10 MG/ML 20 ML VIAL IV ONE
--- NOTE | 2017-03-20 07:16 | History & Physical Bridge Note ---
H&P Re-Evaluation Bridge Note: I have examined the patient, reviewed the History & Physical and in the interval since the performance of the History & Physical I have noted the following changes of clinical significance: No changes noted
[2017-03-20] MEDS ORDERED: CONRAY 30% 150ML BOTTLE ONE (08:52)
[2017-03-20] MEDS ORDERED: PHENYLEPHRINE 100MCG/ML 5ML SYR ONE (09:22)
[2017-03-20] MEDS ORDERED: FENTANYL CITRATE INJ 50 MCG/1 ML 2 ML VIAL ONE (09:29)
[2017-03-20] MEDS ORDERED: CIPR-255 PO (10:06)
[2017-03-20] MEDS ORDERED: PHEN-775 PO (10:06)
[2017-03-20] MEDS ORDERED: OXYC7.5T65 PO (10:06)
--- NOTE | 2017-03-20 10:09 | Discharge Instructions ---
Discharge Instructions Date of Service Mar 20, 2017. Admission Reason for Admission: Left Ureteral Stone Discharge Discharge Diagnosis / Problem: Left ureteral and renal stone s/p uscope, laser litho, stent Discharge Goals Goal(s): Decrease discomfort, Improve disease control, Therapeutic intervention Activity Recommendations Activity Limitations: as noted below Lifting Limitations: no more than 25 pounds, gradually increase as tolerated Exercise/Sports Limitations: rest today, gradually increase as tolerated May Resume Sexual Activity: when tolerated Shower/Bathe: no limitations Driving or Machine Use: resume 1 day after discharge . Instructions / Follow-Up Instructions / Follow-Up As scheduled in office for stent removal with [facility] Xray before visit Discharge Diet Recommended Diet: Regular Diet (good fluid intake) Procedures Procedures Performed: Cystoscopy, Left Flexible Ureteroscopy, Left Retrograde Pyelography, Laser Lithotripsy, Basket Stone Extraction; Left Ureteral Stent Pending Studies Studies pending at discharge: yes List of pending studies: Stone analysis Laboratory Results Hemoglobin A1c Test 02/21/17 10:54 Range/Units Estimated Average Glucose 151 mg/dl Hemoglobin A1c 6.9 H 4.5-5.6 % Medical Emergencies . Who to Call and When: Medical Emergencies: If at any time you feel your situation is an emergency, please call 911 immediately. . Non-Emergent Contact Non-Emergency issues call your: Urologist Call Non-Emergent contact if: you have a fever, temperature is above 101, your pain is not controlled, your pain is worsening, your pain is unusual for you, your pain is concerning you, you have any medication questions . . "Provider Documentation" section prepared by Talon Miller. . VTE Core Measure Inpt VTE Proph given/why not?: SCD's [place] Drug Monitoring Program Search Results: patient reviewed within database, see additional documentation (last Rx by our service earlier this month in the context of stone - refill provided)
--- NOTE | 2017-03-20 10:11 | [facility] Post Operative Brief Note ---
Immediate Operative Summary Operative Date Mar 20, 2017. Pre-Operative Diagnosis 14 mm L renal stone, 6 mm left ureteral stone Post-Operative Diagnosis Same Procedure(s) Performed Cystoscopy, Left Flexible Ureteroscopy, Left Retrograde Pyelography, Laser Lithotripsy, Basket Stone Extraction; Left Ureteral Stent Surgeon Dr. Talon Miller Vermin Exterminator Surgeon(s) None Estimated Blood Loss 10mL Findings Stones visualized, fragmented, larger fragments removed. Good stent position after completion. Specimens Specimen A. Left Renal Stone for Chemical Analysis Drains 6 fr multilength ureteral stent on left Anesthesia [facility]MA Complication(s) None Disposition Recovery Room / PACU
[2017-03-20] MEDS ORDERED: PHENAZOPYRIDINE HCL 200 MG TAB PO PRN (10:15)
[2017-03-20] MEDS ORDERED: OXYCODONE/ACETAMINOPHEN 5-325 TAB PO PRN ×2 (10:15)
--- NOTE | 2017-03-20 10:17 | [facility] Operative Report ---
Operative Report Operative Date Mar 20, 2017. Pre-Operative Diagnosis 14 mm L renal stone, 6 mm left ureteral stone Post-Operative Diagnosis Same Procedure(s) Performed Cystoscopy, Left Flexible Ureteroscopy, Left Retrograde Pyelography, Laser Lithotripsy, Basket Stone Extraction; Left Ureteral Stent Surgeon Dr. Talon Miller Supervisor Cartography Surgeon(s) None Estimated Blood Loss 10mL Findings Stones visualized, fragmented, larger fragments removed. Good stent position after completion. Specimens Specimen A. Left Renal Stone for Chemical Analysis Drains 6 fr multilength ureteral stent on left Anesthesia GALMA Complication(s) None Disposition Recovery Room / PACU Indications 72-year-old male with left-sided ureteral stone, 6 mm in size and a left renal stone, 14 mm in size, was here today for surgical management of these problems after previous ESWL with persistence of his left ureteral stone. Please see H&P for further details. Intravenous ciprofloxacin provided for antibiotic coverage and SCDs used for DVT prophylaxis. Consent reviewed in the chart preoperatively today. Description of Procedure Patient was properly identified and brought into the operative suite after identification of appropriate consent of the chart. General anesthesia with laryngeal mask was initiated and patient was prepped and draped in the standard fashion for this procedure. Full timeout procedure was followed. 22 Kittitian rigid cystoscope was introduced into the bladder under direct visualization. This demonstrated normal urethra and a slightly elevated bladder neck with moderate lateral lobe hypertrophy of the prostate gland. Grade 2-3 trabeculation was present within the bladder with no intravesical lesions, papillary masses or mucosal abnormalities. Some small fragments of calculi were seen within the bladder, not significant in size. Ureteral orifices were visualized within the normal anatomic range and the left ureteral orifice was cannulated and gentle retrograde pyelography was performed. This demonstrated normal ureter with a filling defect within the proximal ureter and a filling defect within the left renal pelvis. These were consistent with the patient's stones on print producer imaging. Sensor tip wire was advanced to the level of the left renal pelvis and kept until the end of the case as a safety wire. An Amplatz Super Stiff wire was advanced as a working wire and a 12/14 Kittitian 35 cm ureteral access sheath was advanced into the mid ureter without difficulties or resistance. Fiberoptic flexible ureteroscope was advanced up to the level of the left renal pelvis. The patient's ureteral stone was appreciated to have been retropulsed into the kidney. Using a 200 laser fiber on dusting settings the stone fragmented into smaller pieces, all of which were felt adequately small for passage. Larger fragments were grasped using an open- ended basket and extracted from the patient. These were sent for chemical analysis. After a fair number of personnel representative stone fragments were removed and mild ureteral edema was beginning to be appreciated the remainder of the stones were flushed using ureteroscope and complete exit ureteroscopy was performed. This demonstrated no ureteral injury or tears, and no significant stones present within the ureteral lumen. After this was complete which included removal of the access sheath and inspection of the areas behind it, cystoscope was backloaded over the safety wire. 6 Kittitian multilength stent was advanced with redundant stent present within the left renal pelvis and a full coil present within the bladder. Hydronephrotic drip was appreciated. Bladder was drained and cystoscope was removed. Anesthesia was reversed and patient was transferred to the recovery room in stable condition. Follow-up care: Patient is prescribed ciprofloxacin & Pyridium for postoperative discomfort and provided with a refill of his Percocet, provided earlier this month in the context of his lithotripsy. Outpatient appointment with [facility] for stent removal was confirmed. Patient is instructed to contact our service should he note any fevers, chills, nausea, vomiting or other significant difficulties in the postoperative period. Care is discussed with the patient's family present today per his request. I attest to the content of the Intraoperative Record and any orders documented therein. Any exceptions are noted below.
--- NOTE | 2017-03-20 10:21 | DIAGNOSTIC IMAGING REPORT ---
INTRAOPERATIVE RADIOGRAPHS CLINICAL HISTORY: Left-sided lithotripsy and ureteral stent placement. Fluoroscopy time: 99 seconds. FINDINGS: 3 spot fluoroscopic views of the left abdomen are correlated with abdominal CT dated 02/12/2017. A retrograde ureterogram shows a filling defect within the mid left ureter as well as an additional filling defect in the left renal pelvis. These likely represent calculi. The final image shows the proximal end of a left ureteral stent being deployed. Additional surgical clips are present in left upper quadrant and midline sternotomy wires are noted. IMPRESSION: Intraoperative images from a left-sided lithotripsy and ureteral stent placement procedure as above. See operative report for detailed findings. Electronically signed by: Juancho Shaffer M.D. 03/20/2017 10:20 AM Dictated Date/Time: 03/20/2017 10:18 AM
[2017-03-20] MEDS ORDERED: EpHEDrine SULFATE INJ 50 MG/ML AMP IV PRN (10:30)
[2017-03-20] MEDS ORDERED: NALOXONE HCL 0.4 MG/1 ML VIAL/CARP IV PRN (10:30)
[2017-03-20] MEDS ORDERED: ONDANSETRON INJ 2 MG/ML 2 ML VIAL IV PRN (10:30)
[2017-03-20] MEDS ORDERED: PROMETHAZINE HCL INJ 12.5 MG in SODIUM CHLORIDE 0.9% 50ML 50 ML IV PRN (10:30)
[2017-03-20] MEDS ORDERED: FENTANYL CITRATE INJ 50 MCG/1 ML 2 ML VIAL IV PRN (10:30)
[2017-03-20] MEDS ORDERED: LABETALOL HCL IV 5 MG/ML 20ML IV PRN (10:30)
[2017-03-20] MEDS ORDERED: FLUMAZENIL 0.1 MG/1 ML 10 ML VIAL IV PRN (10:30)
[2017-03-20] MEDS ORDERED: ATROPINE SULFATE 0.1 MG/ML 5ML SYR IV PRN (10:30)
--- NOTE | 2017-03-20 10:41 | Anesthesiology Progress Note ---
Anesthesia Post Op Note Date & Time Mar 20, 2017 at 10:41 Vital Signs Pain Intensity: 0 Vital Signs Past 12 Hours Date Time Temp Pulse Resp B/P (MAP) Pulse Ox O2 Delivery O2 Flow Rate FiO2 03/20/17 10:35 36.3 64 16 142/84 100 Room Air 03/20/17 10:25 61 16 142/77 100 Oxymask 3 03/20/17 10:10 61 18 130/78 100 Oxymask 3 03/20/17 10:00 36.5 60 14 125/63 100 Oxymask 5 03/20/17 07:23 37.0 68 20 179/89 (119) 100 Room Air Notes Mental Status: alert / awake / arousable, participated in evaluation Pt Amnestic to Procedure: Yes Nausea / Vomiting: adequately controlled Pain: adequately controlled Airway Patency, RR, SpO2: stable & adequate BP & HR: stable & adequate Hydration State: stable & adequate Anesthetic Complications: no major complications apparent
[2017-03-20] MEDS ORDERED: HYDROmorphone INJ 1 MG/ML SYR IV STA (12:10)
[2017-03-20] MEDS ORDERED: OXYBUTYNIN CHLORIDE 5 MG TAB PO STA (12:55)
[2017-03-20] MEDS ORDERED: LACTATED RINGER'S 1000ML 1,000 ML IV SCH (14:57)
== END 2017-03-20 14:40 | disposition home or self-care (01) ==
LOC: C.ACU 06:36
PROVIDERS: ATTEND Urology
DX: N20.2 Calculus of kidney with calculus of ureter (principal); I71.2 Thoracic aortic aneurysm, without rupture; I48.0 Paroxysmal atrial fibrillation; I25.10 Atherosclerotic heart disease of native coronary artery without angina pectoris; I44.2 Atrioventricular block, complete; I65.29 Occlusion and stenosis of unspecified carotid artery; N18.3 Chronic kidney disease, stage 3 (moderate); I12.9 Hypertensive chronic kidney disease with stage 1 through stage 4 chronic kidney disease, or unspecified chronic kidney disease; E10.22 Type 1 diabetes mellitus with diabetic chronic kidney disease; E10.51 Type 1 diabetes mellitus with diabetic peripheral angiopathy without gangrene; N25.81 Secondary hyperparathyroidism of renal origin; E78.00 Pure hypercholesterolemia, unspecified; D64.9 Anemia, unspecified; M19.90 Unspecified osteoarthritis, unspecified site; Z95.2 Presence of prosthetic heart valve; Z95.0 Presence of cardiac pacemaker; Z95.1 Presence of aortocoronary bypass graft; Z79.4 Long term (current) use of insulin; Z79.899 Other long term (current) drug therapy

== ENCOUNTER → 2017-04-23 | Outpatient (CLI) | payer OTHER, BC ==
[~2017-04-23] MED LIST changes: +CIPR-255 PO; -CIPROFLOXACIN / D5W 400 MG IV SCH; -FENTANYL CITRATE INJ 50 MCG/1 ML 2 ML VIAL ONE; -LACTATED RINGER'S 1000ML 1,000 ML IV SCH; -LIDOCAINE HCL 2% 2 ML VIAL (20MG/ML) ONE; -ONDANSETRON INJ 2 MG/ML 2 ML VIAL ONE; +OXYC7.5T65 PO; -PROPOFOL IV EMULSION 10 MG/ML 20 ML VIAL IV ONE
--- NOTE | 2017-04-23 11:20 | DIAGNOSTIC IMAGING REPORT ---
RENAL ULTRASOUND HISTORY: NEPHROLITHIASIS COMPARISON: [facility] 04/23/2017. FINDINGS: Right kidney: 9.5 cm. No hydronephrosis. Mild to moderate cortical renal thinning and trace perinephric fluid. A few echogenic foci within the right renal sinus which may represent the stones seen on the prior [facility]. Left kidney: 9.6 cm. No hydronephrosis. Trace perinephric fluid. A few echogenic foci within the lower pole the left kidney with the largest measuring 4 mm. These favor small stones. Bladder: No bladder wall thickening. The bilateral ureteral jets were identified. IMPRESSION: 1. No hydronephrosis. 2. No nephrolithiasis. 3. Trace bilateral perinephric fluid. Electronically signed by: Jamal Dial M.D. 04/23/2017 11:18 AM Dictated Date/Time: 04/23/2017 11:16 AM
== END | disposition home or self-care (01) ==
LOC: C.ULTRBC 10:23
PROVIDERS: ATTEND Urology
DX: N20.0 Calculus of kidney (principal)

== ENCOUNTER → 2017-04-23 | Outpatient (CLI) | payer OTHER, BC ==
--- NOTE | 2017-04-23 08:33 | DIAGNOSTIC IMAGING REPORT ---
[facility] CLINICAL HISTORY: 72 years-old Male presenting with N20.0, nephrolithiasis, left-sided lithotripsy. TECHNIQUE: Single supine view of the abdomen was obtained. COMPARISON: 04/01/[address] from 02/12/2017. FINDINGS: Moderate stool burden primarily in the right colon. No bowel obstruction. Surgical clips project over the left mid abdomen. Anastomotic suture lines also noted in the left abdomen. The left ureteral stent has been removed. Allowing for the presence of gas and stool, bilateral calculi again noted. Calculi on the left may be in the region of the left renal pelvis or proximal left ureter. Atherosclerosis including spine arterial calcification noted. Osteopenia suspected. Degenerative change of the spine. Partially visualized median sternotomy wires, pacer leads, and prosthetic aortic valve. Small left pleural effusion. IMPRESSION: 1. Allowing for stool and bowel gas, bilateral nephrolithiasis. Calcifications now project over the region of the left renal pelvis or proximal left ureter, which could suggest stone migration. 2. Removal of the left ureteral stent. Electronically signed by: Ez Salazar M.D. 04/23/2017 8:31 AM Dictated Date/Time: 04/23/2017 8:27 AM
== END | disposition home or self-care (01) ==
LOC: C.RAD 08:11
PROVIDERS: ATTEND Urology
DX: N20.0 Calculus of kidney (principal)

== ENCOUNTER → 2017-04-25 | Outpatient (CLI) | payer OTHER, BC ==
--- NOTE | 2017-04-25 12:30 | DIAGNOSTIC IMAGING REPORT ---
[facility] CLINICAL HISTORY: 72 years-old Male presenting with N20.0 [id number]. TECHNIQUE: Single supine view of the abdomen was obtained. COMPARISON: 04/23/2017. FINDINGS: Mild stool burden primarily in the right colon. Nonobstructive bowel gas pattern. No gross pneumoperitoneum. Surgical clips project over the left abdomen. Anastomotic suture lines noted in the epigastrium. Partially visualized median sternotomy wires and mediastinal surgical clips. The previously noted calcification projecting at the level of L2-3 is not well visualized but has likely not changed significantly in location. Evaluation of the renal shadows and ureters for calculi limited secondary to bowel gas and stool. Previously noted right renal calculi are not well appreciated on the current radiograph. Atherosclerosis. Surgical clips also project over the right inguinal region. Degenerative changes of the spine. Possible left basilar opacity and/or effusion. IMPRESSION: 1. Evaluation of the renal shadows and ureters for calculi limited secondary to bowel gas and stool. Within the limitation, no significant change in position of the proximal left ureteral calculus. Electronically signed by: Ez Salazar M.D. 04/25/2017 12:29 PM Dictated Date/Time: 04/25/2017 12:26 PM
== END | disposition home or self-care (01) ==
LOC: C.RAD1850 12:02
PROVIDERS: ATTEND Urology
DX: N20.0 Calculus of kidney (principal)

== ENCOUNTER → 2017-05-13 | Outpatient (CLI) | payer OTHER, BC ==
[~2017-05-13] MED LIST changes: -FOLI1TAB7 PO; +FOLI1TAB8 PO
--- NOTE | 2017-05-13 15:15 | DIAGNOSTIC IMAGING REPORT ---
CT OF THE ABDOMEN AND PELVIS WITHOUT CONTRAST CLINICAL HISTORY: Nephrolithiasis. COMPARISON STUDY: CT of the abdomen and pelvis February 12, 2017, renal ultrasound April 23, 2017 and [facility] April 25, 2017. TECHNIQUE: Axial images of the abdomen and pelvis were obtained without IV contrast. Images were reviewed in the axial, sagittal, and coronal planes. A dose lowering technique was utilized adhering to the principles of ALARA. FINDINGS: There is no hydronephrosis. A 7 mm x 5 mm nonobstructing distal left ureteral calculus is noted. The left-sided calculus burden has significantly diminished since exam of February 12, 2017. There are several suspected punctate left renal calculi. Multiple right renal calculi measure up to 5 mm. There are no right ureteral calculi. A a few gallstones within the gallbladder noted. Unenhanced images of the liver, spleen, adrenal glands and pancreas are unremarkable. A chronic small left pleural effusion with associated atelectasis unchanged. Postsurgical findings involving the stomach are noted. There is no bowel obstruction. There is colonic diverticulosis without evidence for acute diverticulitis. Mild bladder wall thickening is unchanged. There are no suspicious osseous lesions. IMPRESSION: 1. 7 mm x 5 mm nonobstructing distal left ureteral calculus. Significant interval decrease in left-sided calculus burden since exam of February 12, 2017. 2. Right-sided nephrolithiasis. No right ureteral calculi. 3. Cholelithiasis. Electronically signed by: Servando Tidwell M.D. 05/13/2017 3:13 PM Dictated Date/Time: 05/13/2017 3:00 PM
== END | disposition home or self-care (01) ==
LOC: C.CTS 14:35
PROVIDERS: ATTEND Urology
DX: N20.0 Calculus of kidney (principal); N20.1 Calculus of ureter; K80.20 Calculus of gallbladder without cholecystitis without obstruction

== ENCOUNTER → 2017-07-29 | Day surgery (SDC) | payer OTHER, BC ==
[~2017-07-29] VITALS: Ht 177.8 cm; Wt 91.0 kg
[~2017-07-29] MED LIST changes: +LIDOCAINE HCL 2% 2 ML VIAL (20MG/ML) ONE; +PROPOFOL IV EMULSION 10 MG/ML 20 ML VIAL IV ONE
[2017-07-29 06:54] VITALS: BP 152/82; PULSE 86; TEMP 36.9; O2SAT 99; Ht 177.8 cm; Wt 91.0 kg
--- NOTE | 2017-07-29 07:44 | History & Physical Bridge Note ---
H&P Re-Evaluation Bridge Note: I have examined the patient, reviewed the History & Physical and in the interval since the performance of the History & Physical I have noted the following changes of clinical significance: No changes noted. I reviewed the indications, procedure, risks and alternatives with him and he understands and agrees to proceed. Consent obtained.
[2017-07-29 07:46] VITALS: BP 144/77; PULSE 86; O2SAT 100
--- NOTE | 2017-07-29 08:38 | Progress Note ---
Progress Note Date of Service Jul 29, 2017. Progress Note I evaluated this patient for sedation for cardioversion. Dr Jules was able to perform conversion simply through modification of the pacer settings and no anesthetic medications were delivered to the patient. I was present throughout the procedure performed by Dr Jules.
--- NOTE | 2017-07-29 09:16 | Progress Note ---
Progress Note Date of Service Jul 29, 2017. Progress Note Patient arrived in atrial flutter, we did connect into the recording apparatus but before we started the procedure I interrogated his pacemaker and performed atrial antitachycardia pacing manually. I was able to terminate the arrhythmia with atrial burst pacing. Atrial threshold check showed good and stable atrial thresholds. His device was reprogrammed to increase the base pacing rate to 70 bpm. I will arrange follow-up in 3 months. Following the procedure got up quickly from the litter and felt lightheaded, we had him sit down and checked his blood pressure which was 148 systolic, I interrogated his device again and no arrhythmia was identified, we checked his blood sugar was 129. He felt better and was able to ambulate well after that and the hospital. No medications were administered during his stay in the laboratory.
== END | disposition home or self-care (01) ==
LOC: C.CATH 06:30
PROVIDERS: ATTEND Internal Medicine Cardiovascular Disease
DX: I48.0 Paroxysmal atrial fibrillation (principal); I25.10 Atherosclerotic heart disease of native coronary artery without angina pectoris; Z95.0 Presence of cardiac pacemaker; I44.0 Atrioventricular block, first degree; I35.0 Nonrheumatic aortic (valve) stenosis; Z95.2 Presence of prosthetic heart valve; N18.3 Chronic kidney disease, stage 3 (moderate); E10.22 Type 1 diabetes mellitus with diabetic chronic kidney disease; I12.9 Hypertensive chronic kidney disease with stage 1 through stage 4 chronic kidney disease, or unspecified chronic kidney disease; E78.00 Pure hypercholesterolemia, unspecified; I73.9 Peripheral vascular disease, unspecified; Z85.828 Personal history of other malignant neoplasm of skin; Z79.899 Other long term (current) drug therapy; Z79.02 Long term (current) use of antithrombotics/antiplatelets; Z79.01 Long term (current) use of anticoagulants; Z79.4 Long term (current) use of insulin; Z80.9 Family history of malignant neoplasm, unspecified; Z82.49 Family history of ischemic heart disease and other diseases of the circulatory system; Z83.3 Family history of diabetes mellitus

== ENCOUNTER 2017-08-01 09:02 | Observation (INO) | payer OTHER, BC ==
[~2017-08-01] VITALS: Ht 177.8 cm; Wt 91.3 kg
[2017-08-01] VITALS (15 sets, daily range): BP systolic 127–158; BP diastolic 77–101; PULSE 70–88; TEMP 36.5–36.9; O2SAT 94–97; Ht 177.8 cm; Wt 91.3 kg
[~2017-08-01 09:02] MED LIST changes: -ELQ25 PO; -ISOS30TA3 PO; -REGADENOSON 0.4 MG/5 ML SYR ONE
--- NOTE | 2017-08-01 09:17 | EMERGENCY ROOM VISIT NOTE ---
History Report prepared by Vinh: Viktoriya Cabrales Under the Supervision of: Dr. Nick Murray M.D. 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 He states that he walked into the exam room for his stress test, and he started feeling a "constant chest pressure," and got nauseous, dizzy, and had SOB. Dr. Chen reports that he failed his stress test. Source of History: patient, other (Dr. 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 Review of Systems See HPI for pertinent positives & negatives. A total of 10 systems reviewed and were otherwise negative. Past Medical & Surgical Medical Problems: (1) Anemia (2) Basal cell carcinoma of left forehead (3) Bleeding (4) Chronic kidney disease (5) Diabetes (6) Diabetic foot ulcer associated with type 1 diabetes mellitus (7) Diabetic peripheral neuropathy associated with type 1 diabetes mellitus (8) Foot deformity (9) Heart disease (10) History of diabetic ulcer of foot (11) Hypertension (12) Kidney failure (13) Kidney stones (14) Kidney stones (15) Loss of sensation (16) Renal tubular acidosis, type 4 (17) Stomach problems (18) Ulcer Surgical Problems: (1) Aortic valve replaced (2) Hx of CABG (3) Hx of CABG (4) S/P triple vessel bypass Family History Cancer Diabetes mellitus FH: heart attack Gallbladder disease Heart disease Hypertension Social History Smoking Status: Never Smoker Drug Use: none Marital Status: Housing Status: lives with significant other Occupation Status: retired Current/Historical Medications Scheduled Acyclovir (Acyclovir), 400 MG PO QPM Atorvastatin (Lipitor), 80 MG PO QPM Calcitriol (Calcitriol), 0.5 MCG PO QAM Cholecalciferol (Vitamin D3), 1 CAP PO QAM Clopidogrel (Plavix), 75 MG PO QPM Cyanocobalamin (Vitamin B12), 1 TAB PO QAM Folic Acid (Folvite), 1 CAP PO QAM Insulin Human Lispro (Insulin Humalog Pump ), 1 EA N/A UD Iron Combinations (Iron Complex), 65 MG PO QAM Magnesium Oxide (Mag-Ox), 400 MG PO QAM Ocuvite Preservision (Ocuvite Preservision), 1 TAB PO BID Pantoprazole (Protonix), 40 MG PO QAM Probiotic Product (Probiotic), 1 CAP PO QAM Vitamin B Cmplx/Vitc/Folic Ac (Nephrocaps), 1 CAP PO QAM Scheduled PRN Nebivolol Hcl (Bystolic), 5 MG PO BID PRN for BP VALUES Allergies Coded Allergies: No Known Allergies (Verified , 08/01/17) Physical Exam Vital Signs Date Time Temp Pulse Resp B/P (MAP) Pulse Ox O2 Delivery O2 Flow Rate FiO2 08/01/17 10:30 85 20 159/65 92 Room Air 08/01/17 09:12 87 08/01/17 09:09 36.7 88 18 161/95 99 Physical Exam GENERAL: Awake, alert, well-appearing, in no acute distress HENT: Normocephalic, atraumatic. Oropharynx unremarkable. EYES: Normal conjunctiva. Sclera non-icteric. NECK: Supple. No nuchal rigidity. FROM. No JVD. RESPIRATORY: Clear to auscultation. CARDIAC: Regular rate, normal rhythm. Extremities warm and well perfused. Pulses equal. ABDOMEN: Soft, non-distended. No tenderness to palpation. No rebound or guarding. No masses. RECTAL: Deferred. MUSCULOSKELETAL: Chest examination reveals no tenderness. The back is symmetrical on inspection without obvious abnormality. There is no CVA tenderness to palpation. No joint edema. LOWER EXTREMITIES: Calves are equal size bilaterally and non-tender. No edema. No discoloration. NEURO: Normal sensorium. No sensory or motor deficits noted. SKIN: No rash or jaundice noted. Medical Decision & Procedures ER Provider Diagnostic Interpretation: Radiology results as stated below per my review and radiologist interpretation: CHEST ONE VIEW PORTABLE HISTORY: Atypical CHEST PAIN COMPARISON: Chest 03/23/2017. FINDINGS: Stable blunting the left lateral costophrenic sulcus. This consistent with a small chronic left pleural effusion. No pneumothorax. The right lung is clear. No evidence for pulmonary edema. Small linear scarlike densities at the left lung base persist. Left-sided dual-chamber pacemaker. The heart remains borderline enlarged. There are poststernotomy changes. Aortic valve prosthesis. IMPRESSION: No significant change compared to the prior study. No acute process. Small chronic left pleural effusion persists. Electronically signed by: Jamal Dial M.D. 08/01/2017 9:31 AM Dictated Date/Time: 08/01/2017 9:29 AM Laboratory Results 08/01/17 09:25 Red Blood Count 3.49, Mean Corpuscular Volume 94.6, Mean Corpuscular Hemoglobin 32.1, Mean Corpuscular Hemoglobin Concent 33.9, Mean Platelet Volume 8.9, Neutrophils (%) (Auto) 67.5, Lymphocytes (%) (Auto) 14.5, Monocytes (%) (Auto) 12.2, Eosinophils (%) (Auto) 4.8, Basophils (%) (Auto) 0.7, Neutrophils # (Auto ) 5.05, Lymphocytes # (Auto) 1.08, Monocytes # (Auto) 0.91, Eosinophils # (Auto ) 0.36, Basophils # (Auto) 0.05 Test 08/01/17 09:25 08/01/17 09:31 White Blood Count 7.47 K/uL (4.8-10.8) Red Blood Count 3.49 M/uL (4.7-6.1) Hemoglobin 11.2 g/dL (14.0-18.0) Hematocrit 33.0 % (42-52) Mean Corpuscular Volume 94.6 fL (80-100) Mean Corpuscular Hemoglobin 32.1 pg (25-34) Mean Corpuscular Hemoglobin Concent 33.9 g/dl (32-36) Platelet Count 164 K/uL (130-400) Mean Platelet Volume 8.9 fL (7.4-10.4) Neutrophils (%) (Auto) 67.5 % Lymphocytes (%) (Auto) 14.5 % Monocytes (%) (Auto) 12.2 % Eosinophils (%) (Auto) 4.8 % Basophils (%) (Auto) 0.7 % Neutrophils # (Auto) 5.05 K/uL (1.4-6.5) Lymphocytes # (Auto) 1.08 K/uL (1.2-3.4) Monocytes # (Auto) 0.91 K/uL (0.11-0.59) Eosinophils # (Auto) 0.36 K/uL (0-0.5) Basophils # (Auto) 0.05 K/uL (0-0.2) RDW Standard Deviation 47.1 fL (36.4-46.3) RDW Coefficient of Variation 13.7 % (11.5-14.5) Immature Granulocyte % (Auto) 0.3 % Immature Granulocyte # (Auto) 0.02 K/uL (0.00-0.02) Prothrombin Time 12.3 SECONDS (9.0-12.0) Prothromb Time International Ratio 1.2 (0.9-1.1) Activated Partial Thromboplast Time 33.4 SECONDS (21.0-31.0) Partial Thromboplastin Ratio 1.3 Est Creatinine Clear Calc Drug Dose 29.3 ml/min Total Bilirubin 1.1 mg/dl (0.2-1) Direct Bilirubin 0.4 mg/dl (0-0.2) Aspartate Amino Transf (AST/SGOT) 49 U/L (15-37) Alanine Aminotransferase (ALT/SGPT) 42 U/L (12-78) Alkaline Phosphatase 221 U/L (45-117) Total Creatine Kinase 580 U/L (39-308) Creatine Kinase MB 6.0 ng/ml (0.5-3.6) Creatine Kinase MB Ratio 1.0 (0-3.0) Total Protein 7.3 gm/dl (6.4-8.2) Albumin 3.2 gm/dl (3.4-5.0) Lipase 150 U/L (73-393) Bedside Hemoglobin 10.9 g/dl (14.0-18.0) Bedside Hematocrit 32 % (42-52) Bedside Sodium 140 mEq/L (135-144) Bedside Potassium 6.1 mEq/L (3.3-5.0) Bedside Chloride 109 mEq/L (101-112) Bedside Total CO2 23 mEq/l (24-31) Bedside Blood Urea Nitrogen 58 mg/dl (7-18) Bedside Creatinine 2.4 mg/dl (0.6-1.3) Bedside Glucose (other) 165 mg/dl (70-99) Bedside Ionized Calcium (Mariano) 1.17 mmol/l (1.12-1.32) Bedside Troponin I 0.090 ng/ml (0-0.045) Labs reviewed by ED physician. Medications Administered Medications (Trade) Dose Ordered Sig/Lc Route Start Time Stop Time Status Last Admin Dose Admin Sodium Chloride 1,000 ml @ 999 mls/hr Q1H1M STAT IV 08/01/17 09:33 08/01/17 10:33 DC 08/01/17 09:33 999 MLS/HR ECG Per My Interpretation Indication: chest pain Rate (beats per minute): 83 Rhythm: other (paced rhythm ) Findings: other (frequent PVC, no ST elevation or depression) Change: Repeat EKG: Paced rhythm, frequent PVCs, unchanged from previous EKG ED Course 0907: Past medical records reviewed. The patient was evaluated in room B4. A complete history and physical examination was performed. 0933: Sodium Chloride 1000 ml @ 999 mls/hr IV 0938: Upon reexamination the patient is content. I discussed results and treatment plan with the patient. He verbalizes agreement and understanding. I spoke with Dr. Hurtado from the [facility] Hospitalist Service. The patient will be evaluated for further management. Medical Decision Differential diagnosis: Etiologies such as cardiac ischemia, aortic dissection, pulmonary embolism, pneumonia, pneumothorax, musculoskeletal, infections, pericarditis, myocarditis , esophageal rupture, gastrointestinal, as well as others were entertained. This is a 72-year-old male who presents the emergency department with concerns he failed his stress test today. Upon arrival to the emergency department the patient is pain-free. He has a history of CABG as well as aortic valve replacement. The patient has elevations in his troponin CK and MB fractions therefore he was started on a heparin drip. I did discuss the case with the hospitalist as well as the cardiology and interventional cardiology. Patient was in agreement with the treatment plan. Medication Reconcilliation Current Medication List: was personally reviewed by me Blood Pressure Screening Patient's blood pressure: Elevated blood pressure Blood pressure disposition: Elevated BP felt to be situational Consults Time Called: [phone] Consulting Physician: Dr. Hurtado, [facility] Returned Call: [phone] He will further evaluate the patient. Impression Primary Impression: NSTEMI (non-ST elevated myocardial infarction) Critical Care I have personally spent greater than 30 minutes of critical care time in the direct management of this patient. This includes bedside care, interpretation of diagnostic studies, and testing, discussion with consultants, patient, and family members, and other required patient management activities. This 30 minutes is in excess of all separately billable procedures. Scribe Attestation The scribe's documentation has been prepared under my direction and personally reviewed by me in its entirety. I confirm that the note above accurately reflects all work, treatment, procedures, and medical decision making performed by me. Departure Information Dispostion Being Evaluated By Hospitalist (Dr. Hurtado, [facility]) Jamar Dumont M.D. (PCP)
--- NOTE | 2017-08-01 09:32 | DIAGNOSTIC IMAGING REPORT ---
CHEST ONE VIEW PORTABLE HISTORY: Atypical CHEST PAIN COMPARISON: Chest 03/23/2017. FINDINGS: Stable blunting the left lateral costophrenic sulcus. This consistent with a small chronic left pleural effusion. No pneumothorax. The right lung is clear. No evidence for pulmonary edema. Small linear scarlike densities at the left lung base persist. Left-sided dual-chamber pacemaker. The heart remains borderline enlarged. There are poststernotomy changes. Aortic valve prosthesis. IMPRESSION: No significant change compared to the prior study. No acute process. Small chronic left pleural effusion persists. Electronically signed by: Jamal Dial M.D. 08/01/2017 9:31 AM Dictated Date/Time: 08/01/2017 9:29 AM
[2017-08-01] MEDS ORDERED: SODIUM CHLORIDE 0.9% 1000ML 1,000 ML IV STA (09:33)
[2017-08-01 09:38] LABS: BASO % 0.7 %; BASO ABS # 0.05 K/uL (0-0.2); EOS % 4.8 %; EOS ABS # 0.36 K/uL (0-0.5); HEMOGLOBIN 11.2 g/dL (14.0-18.0); IG# 0.02 K/uL (0.00-0.02); LYMPH % 14.5 %; LYMPH ABS # 1.08 K/uL (1.2-3.4); MEAN CELL VOLUME 94.6 fL (80-100); MEAN CORPUSCULAR HEMOGLOBIN 32.1 pg (25-34); MEAN CORPUSCULAR HGB CONC 33.9 g/dl (32-36); MEAN PLATELET VOLUME 8.9 fL (7.4-10.4); MONO % 12.2 %; MONO ABS # 0.91 K/uL (0.11-0.59); NEUT % 67.5 %; NEUT ABS # 5.05 K/uL (1.4-6.5); PLATELET COUNT 164 K/uL (130-400); RED CELL DISTRIBUTION WIDTH CV 13.7 % (11.5-14.5); RED CELL DISTRIBUTION WIDTH SD 47.1 fL (36.4-46.3); WHITE BLOOD COUNT 7.47 K/uL (4.8-10.8)
[2017-08-01 09:43] LABS: ISTAT CREATININE 2.4 mg/dl (0.6-1.3); ISTAT IONIZED CALCIUM 1.17 mmol/l (1.12-1.32); ISTAT POTASSIUM 6.1 mEq/L (3.3-5.0)
[2017-08-01 09:59] LABS: ALBUMIN 3.2 gm/dl (3.4-5.0); CALCIUM 9.2 mg/dl (8.5-10.1); CREATININE 2.47 mg/dl (0.60-1.40); POTASSIUM 5.5 mmol/L (3.5-5.1); TOTAL PROTEIN 7.3 gm/dl (6.4-8.2)
[2017-08-01 10:29] LABS: INR 1.2 (0.9-1.1); PTT PATIENT 33.4 SECONDS (21.0-31.0)
[2017-08-01] MEDS ORDERED: SODIUM POLYST. SULF SUSP 15G/60ML PO STA (10:44)
[2017-08-01] MEDS ORDERED: ACETAMINOPHEN 325 MG TAB PO PRN (10:45)
[2017-08-01] MEDS ORDERED: ALUMINUM/MAGNESIUM/SIMETH (MAALOX MAX) 30 ML UDC PO PRN (10:45)
[2017-08-01] MEDS ORDERED: SODIUM CHLORIDE 0.9% 1000ML 1,000 ML IV SCH ×2 (10:45→14:33)
[2017-08-01] MEDS ORDERED: ONDANSETRON INJ 2 MG/ML 2 ML VIAL IV PRN (10:45)
[2017-08-01] MEDS ORDERED: POLYETHYLENE (MIRALAX) 17 GM PACK PO PRN (10:45)
[2017-08-01] MEDS ORDERED: MoRPHine SULFATE 2 MG/ML CARP IV PRN (10:45)
[2017-08-01] MEDS ORDERED: MAGNESIUM HYDROXIDE SUSP 30 ML UDC PO PRN (10:45)
[2017-08-01] MEDS ORDERED: NITROGLYCERIN 0.4 MG SL PER TAB CHARGE SL PRN (10:45)
--- NOTE | 2017-08-01 10:58 | History and Physical ---
History & Physical Date & Time of Service: Aug 01, 2017 at 10:44 Chief Complaint: Nausea/diaphoresis, was for stress test Primary Care Physician: Jamar Solo M.D. History of Present Illness Source: patient, hospital records 72 y/o M Hx CAD, HTN, HPL, chronic anemia, CKD III, A flutter, 3' heart block - pacer, Aortic valve replacement, DM I. 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 The pt underwent cardioversion for AF on 07/29 and developed some chest pressure following the procedure. He was therefore scheduled for the stress test. He is asymptomatic on admission. Initial labs are notable for mild hyperkalemia, worsening renal function, and a mild troponin elevation. Past Medical/Surgical History 1. Renal calculi 2. A-flutter - Eliquis 3. Aortic valve replacement 4. AICD and pacemaker that was placed due to 3' heart block after the valve replacement 5. CAD - 3V CABG 1993 6. Anemia - baseline Hb ~ 11 7. Basal cell carcinoma 8. CKD III - baseline creat ~ 2.1 9. DM I x 36 years - uses an insulin pump 10. HTN 11. Renal tubular acidosis type IV 12. GERD 13. 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 Smoking Status: Never Smoker Drug Use: none Marital Status: Housing status: lives with family Occupational Status: retired Immunizations History of Influenza Vaccine: Yes History of Tetanus Vaccine?: UTD History of Pneumococcal: Yes History of Hepatitis B Vaccine: No Allergies Coded Allergies: No Known Allergies (Verified , 08/01/17) Home Medications Scheduled Acyclovir (Acyclovir), 400 MG PO QPM Atorvastatin (Lipitor), 80 MG PO QPM Calcitriol (Calcitriol), 0.5 MCG PO QAM Cholecalciferol (Vitamin D3), 1 CAP PO QAM Clopidogrel (Plavix), 75 MG PO QPM Cyanocobalamin (Vitamin B12), 1 TAB PO QAM Folic Acid (Folvite), 1 CAP PO QAM Insulin Human Lispro (Insulin Humalog Pump ), 1 EA N/A UD Iron Combinations (Iron Complex), 65 MG PO QAM Magnesium Oxide (Mag-Ox), 400 MG PO QAM Ocuvite Preservision (Ocuvite Preservision), 1 TAB PO BID Pantoprazole (Protonix), 40 MG PO QAM Probiotic Product (Probiotic), 1 CAP PO QAM Vitamin B Cmplx/Vitc/Folic Ac (Nephrocaps), 1 CAP PO QAM Scheduled PRN Nebivolol Hcl (Bystolic), 5 MG PO BID PRN for BP VALUES Review of Systems Constitutional: No fever, No chills, No sweats Eyes: No worsening of vision ENT: No hearing loss, No nasal symptoms Respiratory: No cough, No sputum, No wheezing Cardiovascular: No chest pain, No orthopnea, No PND Abdomen: No pain, No nausea, No vomiting Musculoskeletal: No joint pain Genitourinary - Male: No hematuria, No dysuria, No urinary frequency, No urinary urgency Neurologic: No memory loss, No paralysis, No weakness Psychiatric: No depression symptoms Endocrine: No fatigue Hematologic / Lymphatic: No abnormal bleeding/bruising Integumentary: No rash Allergic / Immunologic: No environmental allergies Physical Exam Vital Signs Date Time Temp Pulse Resp B/P (MAP) Pulse Ox O2 Delivery O2 Flow Rate FiO2 08/01/17 10:41 88 08/01/17 10:30 85 20 159/65 92 Room Air 08/01/17 09:12 87 08/01/17 09:09 36.7 88 18 161/95 99 General Appearance: WD/WN, no apparent distress Head: normocephalic Eyes: normal inspection ENT: normal ENT inspection, pharynx normal Neck: supple, no JVD Respiratory/Chest: chest non-tender, lungs clear, normal breath sounds Cardiovascular: no edema, no gallop, + irregularly irregular Abdomen/GI: normal bowel sounds, non tender, soft Back: normal inspection, no CVA tenderness Extremities/Musculoskelatal: normal inspection, no calf tenderness, normal capillary refill 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, no motor/sensory deficits, alert, oriented x 3 Skin: normal color Diagnostics Laboratory Results Results Past 24 Hours Test 08/01/17 09:25 08/01/17 09:31 Range/Units White Blood Count 7.47 4.8-10.8 K/uL Red Blood Count 3.49 4.7-6.1 M/uL Hemoglobin 11.2 14.0-18.0 g/dL Hematocrit 33.0 42-52 % Mean Corpuscular Volume 94.6 80-100 fL Mean Corpuscular Hemoglobin 32.1 25-34 pg Mean Corpuscular Hemoglobin Concent 33.9 32-36 g/dl Platelet Count 164 130-400 K/uL Mean Platelet Volume 8.9 7.4-10.4 fL Neutrophils (%) (Auto) 67.5 % Lymphocytes (%) (Auto) 14.5 % Monocytes (%) (Auto) 12.2 % Eosinophils (%) (Auto) 4.8 % Basophils (%) (Auto) 0.7 % Neutrophils # (Auto) 5.05 1.4-6.5 K/uL Lymphocytes # (Auto) 1.08 1.2-3.4 K/uL Monocytes # (Auto) 0.91 0.11-0.59 K/uL Eosinophils # (Auto) 0.36 0-0.5 K/uL Basophils # (Auto) 0.05 0-0.2 K/uL RDW Standard Deviation 47.1 36.4-46.3 fL RDW Coefficient of Variation 13.7 11.5-14.5 % Immature Granulocyte % (Auto) 0.3 % Immature Granulocyte # (Auto) 0.02 0.00-0.02 K/uL Prothrombin Time 12.3 9.0-12.0 SECONDS Prothromb Time International Ratio 1.2 0.9-1.1 Activated Partial Thromboplast Time 33.4 21.0-31.0 SECONDS Partial Thromboplastin Ratio 1.3 Sodium Level 138 136-145 mmol/L Potassium Level 5.5 3.5-5.1 mmol/L Chloride Level 110 98-107 mmol/L Carbon Dioxide Level 20 21-32 mmol/L Anion Gap 8.0 15.0 16-25 mmol/L Blood Urea Nitrogen 48 7-18 mg/dl Creatinine 2.47 0.60-1.40 mg/dl Est Creatinine Clear Calc Drug Dose 29.3 ml/min Estimated GFR () 28.7 Estimated GFR (Non- 24.7 BUN/Creatinine Ratio 19.6 10-20 Random Glucose 172 70-99 mg/dl Calcium Level 9.2 8.5-10.1 mg/dl Total Bilirubin 1.1 0.2-1 mg/dl Direct Bilirubin 0.4 0-0.2 mg/dl Aspartate Amino Transf (AST/SGOT) 49 15-37 U/L Alanine Aminotransferase (ALT/SGPT) 42 12-78 U/L Alkaline Phosphatase 221 45-117 U/L Total Creatine Kinase 580 39-308 U/L Creatine Kinase MB 6.0 0.5-3.6 ng/ml Creatine Kinase MB Ratio 1.0 0-3.0 Troponin I 0.101 0-0.045 ng/ml Total Protein 7.3 6.4-8.2 gm/dl Albumin 3.2 3.4-5.0 gm/dl Lipase 150 73-393 U/L Bedside Hemoglobin 10.9 14.0-18.0 g/dl Bedside Hematocrit 32 42-52 % Bedside Sodium 140 135-144 mEq/L Bedside Potassium 6.1 3.3-5.0 mEq/L Bedside Chloride 109 101-112 mEq/L Bedside Total CO2 23 24-31 mEq/l Bedside Blood Urea Nitrogen 58 7-18 mg/dl Bedside Creatinine 2.4 0.6-1.3 mg/dl Bedside Glucose (other) 165 70-99 mg/dl Bedside Ionized Calcium (Mariano) 1.17 1.12-1.32 mmol/l Bedside Troponin I 0.090 0-0.045 ng/ml EKG AV pacing - PVCs Impression Assessment and Plan 72 y/o M Hx CAD, HTN, HPL, chronic anemia, CKD III, A flutter, 3' heart block - pacer, Aortic valve replacement, DM I. 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 The pt underwent cardioversion for AF on 07/29 and developed some chest pressure following the procedure. He was therefore scheduled for the stress test. He is asymptomatic on admission. Initial labs are notable for mild hyperkalemia, worsening renal function, and a mild troponin elevation. 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 We will follow with cardiology post cath. He has been placed on Heparin and had DCd Eliquis 24 hrs prior. NTG and Morphine are provided PRN. Cont B lissette , Statin 2) CKD - ROMA - Pt provided with copious IVF - a repeat BMP will be obtained post -cath 3) HyperK - provided with IVF and one dose Kayexalate as we do not wish to treat with LAsix due to renal impairment 4) DM - can continue to use his pump 5) HTN - cont Nabivolol 6) Anemia - Hb is at baseline 7) Afib/flutter - rhythm currently paced - cont Eliquis post cath - currently on Heparin Full code - Full dose Heparin Total time for this admit including review of labs, meds, imaging, records - discussion with pt and ER attending - 37 min Resuscitation Status VTE Prophylaxis Will order VTE Prophylaxis: Yes
[2017-08-01] MEDS ORDERED: GLUCOSE 10 TABS/TUBE PO PRN (11:00)
[2017-08-01] MEDS ORDERED: GLUCOSE 40% GEL 15 GM TUBE PO PRN (11:00)
[2017-08-01] MEDS ORDERED: INSULIN HUMAN LISPRO (humaLOG) 100 UNITS/ML VIAL SC PRN (11:00)
[2017-08-01] MEDS ORDERED: GLUCAGON FOR INJ 1 MG VIAL SQ PRN (11:00)
[2017-08-01] MEDS ORDERED: DEXTROSE 50% 50 ML SYR IV PRN (11:00)
[2017-08-01] MEDS ORDERED: HEPARIN 25000 UNIT/500 ML D5W ONE (11:12)
[2017-08-01] MEDS ORDERED: MIDAZOLAM HCL 1 MG/ML 2ML VIAL ONE (13:19)
[2017-08-01] MEDS ORDERED: FENTANYL CITRATE INJ 50 MCG/1 ML 2 ML VIAL ONE (13:19)
[2017-08-01] MEDS ORDERED: LIDOCAINE HCL 1% 20 ML VIAL ONE (13:20)
--- NOTE | 2017-08-01 14:22 | CARDIOLOGY CONSULTATION ---
DATE OF CONSULTATION: 08/01/2017 PERTINENT HISTORY: Mr. Blake is a 72-year-old white male with a complex past medical history, who developed unstable angina pectoris just prior to his nuclear medicine stress test. This consultation was ordered to assist in his management. The patient was in his usual state of health until early June. The patient was found to be in atrial fibrillation. He was started on Eliquis and on July 29, Dr. Parisi paced him out of atrial fibrillation into a normal sinus rhythm. However, over the prior 3 weeks, the patient has noted exertional chest discomfort. He describes a substernal chest heaviness with many physical activities. This typically resolves quickly with rest. Today, the patient was to undergo a nuclear medicine stress test. On presentation to the nuclear medicine department, the patient was complaining of substernal chest discomfort, shortness of breath, nausea, and was diaphoretic. He was placed on a stretcher and I was called to the nuclear medicine suite for an evaluation. At the time of my arrival, the patient was pain free and he described exertional chest discomfort as above. We opted to transfer him directly to the Emergency Room for hospital admission and a possible urgent cardiac catheterization. The patient has a long and complex cardiac history. In 1989, the patient had a cardiac catheterization performed, which noted an obstructed right coronary artery, which was angioplastied. From 1989 to 1993, he had numerous catheterizations and angioplasties. In 1993, he had a stent placed, which was complicated by coronary dissection. The patient subsequently underwent a 3-vessel bypass. This included an MOROCHO to the LAD, an SVG to a diagonal branch, and an SVG to an obtuse marginal branch. The patient had several catheterizations in 1994 and 1996, all of which recognized patent grafts. He had a drug-eluting stent placed to the right coronary artery in 2002. In March 2012, the patient underwent a cardiac catheterization, which noted patent grafts. There is 100% early to mid LAD stenosis, 100% circumflex stenosis, and a 50% mid right coronary stenosis just before the stent. The patient underwent placement of a bioprosthetic aortic valve (25*mm Integrity) and a single-vessel bypass with an SVG to the PDA at the [facility]. This procedure was complicated by complete heart block, requiring placement of a [employer] dual-chamber pacemaker. Currently, the patient is resting comfortably in bed without complaints. PAST MEDICAL HISTORY: 1. Coronary artery disease -- see above. 2. CABG x3 --1993. 3. RCA IBRAHIMA -- 2002. 4. Bioprosthetic AVR -- 25-mm Integrity -- July 2012. 5. CABG x1 -- SVG to the PDA -- July 2012. 6. Complete heart block -- July 2012. 7. [employer] DDD pacemaker -- July 2012. 8. Mild ascending thoracic aortic dilatation - 2005 and April 2017. 9. Hypertension. 10. Mild left ventricular hypertrophy. 11. Diastolic dysfunction. 12. Mild mitral regurgitation. 13. Mild tricuspid regurgitation. 14. Cerebrovascular disease - 50%-69% left and less than 50% right internal carotid stenoses. 15. Renal artery stenosis -- 60% bilateral -- July 2015. 16. Diabetes mellitus. 17. History of diabetic foot ulcer. 18. Peripheral vascular disease. 19. Chronic renal failure. 20. Renal tubular acidosis. 21. Anemia of chronic disease. 22. Hypothyroidism. 23. DJD. 24. Colonic polyps. 25 Nephrolithiasis. 26 Secondary hyperparathyroidism. 27. History of gastric bypass surgery. 28. Appendectomy. 29. Tonsillectomy. MEDICATIONS: 1. Plavix 75 mg per day. 2. Lipitor 80 mg at bedtime. 3. Magnesium oxide 400 mg daily. 4. Protonix 40 mg per day. 5. Nephrocaps 1 tablet q.a.m. 6. Rocaltrol 0.5 mcg daily. 7. Vitamin D 2000 International Units daily. 8. Vitamin B12 of 1000 mcg daily. 9. Ferrous fumarate 65 mg daily. 10. Zovirax 400 mg daily. 11. Insulin pump. ALLERGIES: None. ADVERSE DRUG REACTION: LISINOPRIL -- COUGH. SOCIAL HISTORY: The patient is and lives with his . 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 Does not use tobacco or alcohol. FAMILY HISTORY: Positive for early coronary artery disease. REVIEW OF SYSTEMS: A 10-point review of systems was negative except for that described above. PHYSICAL EXAMINATION: GENERAL: This is a well-developed and well-nourished white male lying supine in bed without complaints. VITAL SIGNS: Blood pressure is 150/65 with a regular pulse of 80. Respiration rate is 20. The patient is afebrile at 36.7 degrees Celsius. Saturation is 92% on room air. HEENT: Negative. NECK: Supple with full carotid upstrokes. Bilateral carotid bruits noted. Jugular venous pressure is flat at 90 degrees. There is no thyromegaly. CARDIOVASCULAR: Reveals a regular rhythm with a 1/6 basal systolic ejection murmur. No S3 or S4. LUNGS: Clear without rales, rhonchi, or wheezes. ABDOMEN: Soft and nontender without bruits. EXTREMITIES: Reveal intact radial artery pulses bilaterally. 1+ pedal and pretibial edema is noted. LABORATORY DATA: CBC notes hemoglobin of 10.9, hematocrit 32.0, white count 7.4, and platelet count 164,000. Electrolytes note a sodium 130, potassium 5.5, chloride 110, bicarb 20, BUN 48, creatinine 2.4, and glucose 165. AST is mildly elevated at 49 with a normal ALT of 42. Initial troponin 0.101. Point of care troponin was 0.09. CK is 580 with an MB fraction of 6.0. INR is 1.2. EKG notes biventricular pacing with an occasional PVC. Chest x-ray notes a small left pleural effusion, but no congestive failure. IMPRESSION: Mr. Blake presents with unstable angina pectoris. As above, he has been taken to the Emergency Room for evaluation and admission to the hospital. We will proceed with urgent cardiac catheterization. This has been discussed with Dr. Herrmann and Dr. Goodwin, who agree. PLAN: 1. Would use intravenous heparin. 2. Administer aspirin. 3. Continue usual cardiac medications. 4. Cardiac catheterization with Dr. Goodwin later today.
--- NOTE | 2017-08-01 14:45 | Post Sedation Assessment ---
Post Sedation Assessment General Date of Sedation Aug 01, 2017. Vital Signs: Vital Signs Past 12 Hours Date Time Temp Pulse Resp B/P (MAP) Pulse Ox O2 Delivery O2 Flow Rate FiO2 08/01/17 14:20 80 16 149/78 (101) 98 Room Air 08/01/17 12:30 36.9 88 20 156/88 96 Room Air 08/01/17 10:41 88 08/01/17 10:30 85 20 159/65 92 Room Air 08/01/17 09:12 87 08/01/17 09:09 36.7 88 18 161/95 99 Post Procedure Recovery Score Activity: (2) Moves 4 extremities * Respiration: (2) Deep breath/cough Circulation: (2) +/-20% PreAnes Value Consciousness: (2) Fully Awake Oxygen Saturation: (2) > 92% On Room Air Post Anesthesia Score: 10 Discharge Sedation Level of Care: Fast Track Phase II Post Sedation Plan On clinical assessment, the patient appears to have tolerated the sedation without complications. Patient is recovering as anticipated. Patient will continue to be monitored by nursing and may be discharged when sedation discharge criteria are met per below protocol. Upon Completions of procedure and additional 15 minutes continue every 5 minute vital signs and the P.A.R. score; then discharge to a Phase I or Fast Track to Phase II per the following guidelines: * Discharge Patient to appropriate Phase II area if PAR is 8 or greater or return to pre- procedure baseline. The post - procedure orders will be as directed. * If PAR score is less than 8 or not return to pre-procedure baseline then patient will follow Phase I monitoring till PAR is reached for Phase II. The Phase I may be done in procedure room or may call to secure a Phase I area. * If naloxone or flumazenil are used for reversal, hold in Phase I for an additional 60 -120 minutes before discharge to Phase II. Please call the Sedation Physician to re-evaluate and complete post-note for discharge to Phase II area. Do NOT discharge from procedure sedation or Phase 1 until post- sedation evaluation note is complete by procedure /sedation MD Sedation Discharge Instructions to be given to the patient at discharge to home.
--- NOTE | 2017-08-01 14:45 | Pre Sedation Assessment ---
Pre Sedation Assessment General Date of Sedation: Aug 01, 2017. Vital Signs Past 12 Hours Date Time Temp Pulse Resp B/P (MAP) Pulse Ox O2 Delivery O2 Flow Rate FiO2 08/01/17 14:20 80 16 149/78 (101) 98 Room Air 08/01/17 12:30 36.9 88 20 156/88 96 Room Air 08/01/17 10:41 88 08/01/17 10:30 85 20 159/65 92 Room Air 08/01/17 09:12 87 08/01/17 09:09 36.7 88 18 161/95 99 Review Cardiovascular: regular rate, rhythm, no edema Lungs: chest non-tender, lungs clear Pre-Sedation Airway Assessment Smoking Status: Never Smoker Hx of Sleep Apnea: No Hx of difficult intubation: No Short Thick Neck: No Thyro-mental Distance: > 3 Finger Breadths Oral Cavity: WNL Mallampati Classification: Class II ASA Classification: Class III Procedure Planning Contraindications for Sedation: None Current Medications Reviewed: Yes Notes The planned sedation has been discussed with the patient. Informed Consent was obtained. I have identified the patient, determined the appropriateness of sedation and have assessed the patient immediately prior to the procedure. All medicine(s) and interventions are by my order.
[2017-08-01] MEDS ORDERED: IV FLUIDS COMPLETED PRN (15:15)
--- NOTE | 2017-08-01 15:19 | Cardiac Catheterization ---
Procedure Note Procedure Date Aug 01, 2017. 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 Circumflex - Small vessel, 50% ostial stenosis, moderate diffuse mid segment disease, OM2 occluded proximally. RCA - Large, dominant vessel, 70-80% focal mid disease; 99% in-stent restenosis in the proximal aspect of distal RCA/PDA stents. 70% ostial R-PAV/PLB MOROCHO-LAD - widely patent; distal LAD small with mild diffuse disease SVG-Diagonal - Widely patent SVG-OM - 50-60% proximal stenosis; 70% stenosis at anastomosis of small OM SVG-R-PDA - widely patent; 60-70% stenosis in PDA distal to anastomosis. Arterial Closure: Mynx Summary: 1. Patent MOROCHO-LAD, and vein grafts to diagonal, OM and R-PDA - 50-60% proximal SVG-OM 2. Severe ho-chunk small vessel disease - 60-70% proximal, 95% mid segment stenosis prior to 1st septal - 70% R-PDA after SVG anastomosis - 70% stenosis at anastomosis of SVG-OM Recommendations: Recommend optimizing antianginal therapy for small vessel disease Continued ASCVD risk factor modification Can resume anticoagulation Follow-up with Dr. Herrmann Hemodynamics Rest Ao: 141/65/98 Final Ao: 150/75/106 LV: -- Recommendations Medical therapy and/or Counseling Specimens None Radiation Exposure (mGy) 2692 Contrast (mls) 85 Fluids (cc crystalloids) 105 Drains None Anesthesia Moderate Procedural Complication(s) None Disposition PCU ACC Data Cardiac Status Clinical evaluation leading to the procedure CAD Presntation: Non STEMI Anginal Classification: CCS IV Heart Failure: No, NYHA Class: CCS I Cardiogenic Shock w/in 24Hrs: No Cardiac Arrest w/in 24Hrs: No Imaging studies past 6 months: Yes Stress studies past 6 months: No Closure Device Percutaneous Entry Location: Femoral Closure Device: Mynx Recommendations: Medical therapy and/or Counseling Intraprocedure Events Significant Dissection: No Perforation: No
[2017-08-01 16:50] LABS: CREATININE 2.25 mg/dl (0.60-1.40); POTASSIUM 5.3 mmol/L (3.5-5.1)
[2017-08-01] MEDS ORDERED: NURSING VERBAL MED ORDER ONE (20:45)
[2017-08-01] MEDS ORDERED: ACYCLOVIR 400 MG TAB PO SCH (21:00)
[2017-08-01] MEDS ORDERED: ATORVASTATIN 40 MG TAB PO SCH (21:00)
[2017-08-01] MEDS ORDERED: CLOPIDOGREL BISULFATE 75 MG TAB PO SCH (21:00)
[2017-08-01] MEDS: APIXABAN 2.5 MG TAB PO SCH (21:55)
[2017-08-01] MEDS: NEBIVOLOL HCL 5 MG TAB PO SCH (22:03)
[2017-08-02] VITALS: O2SAT 97
[2017-08-02 03:43] VITALS: BP 147/76; PULSE 82; TEMP 37; O2SAT 95
[2017-08-02 04:00] VITALS: O2SAT 95
[2017-08-02] MEDS: APIXABAN 2.5 MG TAB PO SCH (07:31)
[2017-08-02 07:44] LABS: HEMATOCRIT 35.9 % (42-52); HEMOGLOBIN 11.6 g/dL (14.0-18.0); MEAN CORPUSCULAR HEMOGLOBIN 30.7 pg (25-34); MEAN CORPUSCULAR HGB CONC 32.3 g/dl (32-36); MEAN PLATELET VOLUME 9.1 fL (7.4-10.4); PLATELET COUNT 155 K/uL (130-400); RED CELL DISTRIBUTION WIDTH CV 13.6 % (11.5-14.5)
[2017-08-02 07:52] VITALS: BP 103/53; PULSE 65; TEMP 37; O2SAT 92
[2017-08-02 07:59] LABS: PTT PATIENT 34.5 SECONDS (21.0-31.0)
[2017-08-02 08:20] LABS: CALCIUM 8.8 mg/dl (8.5-10.1); CREATININE 2.47 mg/dl (0.60-1.40)
[2017-08-02] MEDS ORDERED: MAGNESIUM OXIDE 400 MG TAB PO SCH (09:00)
[2017-08-02] MEDS ORDERED: NEPHROCAPS PO SCH (09:00)
[2017-08-02] MEDS ORDERED: FERROUS FUMARATE CONTR REL CAP 65 MG CAPCR PO SCH (09:00)
[2017-08-02] MEDS ORDERED: CALCITRIOL 0.25 MCG CAP PO SCH (09:00)
[2017-08-02] MEDS: NEBIVOLOL HCL 5 MG TAB PO SCH (09:00)
[2017-08-02] MEDS ORDERED: CYANOCOBALAMIN 500 MCG TAB (VIT B-12) PO SCH (09:00)
[2017-08-02] MEDS ORDERED: CHOLECALCIFEROL 1000 INTER.UNIT TAB PO SCH (09:00)
[2017-08-02] MEDS ORDERED: PANTOprazole SOD 40 MG TAB PO SCH (09:00)
--- NOTE | 2017-08-02 09:27 | Cardiology Follow-Up ---
Subjective Date of Service: Aug 02, 2017. Pt evaluation today including: conversation w/ patient, conversation w/ family , physical exam, lab review, review of studies, review of inpatient medication list History of Present Illness Feels better today but still complaining of some chest discomfort, no SOB Currently upset about losing his glasses and medication mixups He feels that he is going in and out of AF (? premature beats) Social History Smoking Status: Never Smoker History of Alcohol Use: No Medications Cardiovascular: Item Value Date Time Magnesium Oxide 400 mg 08/02/17 0900 (Mag-Ox Tab) QAM/PO 08/02/17 0729 Nebivolol 5 mg 08/01/17 210 (Bystolic Tab) BID/PO 08/01/17 220 Atorvastatin 80 mg 08/01/17 2100 Calcium QPM/PO 08/01/172154 (Lipitor Tab) Clopidogrel 75 mg 08/01/17 2100 Bisulfate QPM/PO 08/01/172154 (plAVix TAB) Apixaban 5 mg 08/01/17 2100 (Eliquis Tab) BID/PO 08/02/17 0731 Objective Vital Signs Past 12 Hours Date Time Temp Pulse Resp B/P (MAP) Pulse Ox O2 Delivery O2 Flow Rate FiO2 08/02/17 07:52 37.0 65 18 103/53 (70) 92 08/02/17 04:00 95 Room Air 08/02/17 03:43 37.0 82 18 147/76 (99) 95 Room Air 08/02/17 00:00 97 Room Air 08/01/17 23:55 36.7 71 17 144/85 (104) 97 Room Air 08/01/17 22:02 79 151/84 (106) Last Recorded Weight-Kilograms: 91.300 Data Laboratory Results: Last 24 Hours Test 08/01/17 09:25 08/01/17 09:31 08/01/17 16:17 08/01/17 16:24 White Blood Count 7.47 K/uL Red Blood Count 3.49 M/uL Hemoglobin 11.2 g/dL Hematocrit 33.0 % Mean Corpuscular Volume 94.6 fL Mean Corpuscular Hemoglobin 32.1 pg Mean Corpuscular Hemoglobin Concent 33.9 g/dl Platelet Count 164 K/uL Mean Platelet Volume 8.9 fL Neutrophils (%) (Auto) 67.5 % Lymphocytes (%) (Auto) 14.5 % Monocytes (%) (Auto) 12.2 % Eosinophils (%) (Auto) 4.8 % Basophils (%) (Auto) 0.7 % Neutrophils # (Auto) 5.05 K/uL Lymphocytes # (Auto) 1.08 K/uL Monocytes # (Auto) 0.91 K/uL Eosinophils # (Auto) 0.36 K/uL Basophils # (Auto) 0.05 K/uL RDW Standard Deviation 47.1 fL RDW Coefficient of Variation 13.7 % Immature Granulocyte % (Auto) 0.3 % Immature Granulocyte # (Auto) 0.02 K/uL Prothrombin Time 12.3 SECONDS Prothromb Time International Ratio 1.2 Activated Partial Thromboplast Time 33.4 SECONDS Partial Thromboplastin Ratio 1.3 Sodium Level 138 mmol/L 140 mmol/L Potassium Level 5.5 mmol/L 5.3 mmol/L Chloride Level 110 mmol/L 111 mmol/L Carbon Dioxide Level 20 mmol/L 22 mmol/L Anion Gap 8.0 mmol/L 15.0 mmol/L 7.0 mmol/L Blood Urea Nitrogen 48 mg/dl 44 mg/dl Creatinine 2.47 mg/dl 2.25 mg/dl Est Creatinine Clear Calc Drug Dose 29.3 ml/min 33.0 ml/min Estimated GFR () 28.7 32.1 Estimated GFR (Non- 24.7 27.7 BUN/Creatinine Ratio 19.6 19.5 Random Glucose 172 mg/dl 130 mg/dl Calcium Level 9.2 mg/dl 9.0 mg/dl Total Bilirubin 1.1 mg/dl Direct Bilirubin 0.4 mg/dl Aspartate Amino Transf (AST/SGOT) 49 U/L Alanine Aminotransferase (ALT/SGPT) 42 U/L Alkaline Phosphatase 221 U/L Total Creatine Kinase 580 U/L Creatine Kinase MB 6.0 ng/ml Creatine Kinase MB Ratio 1.0 Troponin I 0.101 ng/ml 0.092 ng/ml Total Protein 7.3 gm/dl Albumin 3.2 gm/dl Lipase 150 U/L Bedside Hemoglobin 10.9 g/dl Bedside Hematocrit 32 % Bedside Sodium 140 mEq/L Bedside Potassium 6.1 mEq/L Bedside Chloride 109 mEq/L Bedside Total CO2 23 mEq/l Bedside Blood Urea Nitrogen 58 mg/dl Bedside Creatinine 2.4 mg/dl Bedside Glucose (other) 165 mg/dl Bedside Ionized Calcium (Mariano) 1.17 mmol/l Bedside Troponin I 0.090 ng/ml Bedside Glucose 133 mg/dl Test 08/01/17 20:13 08/02/17 06:37 08/02/17 07:05 Bedside Glucose 139 mg/dl 126 mg/dl White Blood Count 8.00 K/uL Red Blood Count 3.78 M/uL Hemoglobin 11.6 g/dL Hematocrit 35.9 % Mean Corpuscular Volume 95.0 fL Mean Corpuscular Hemoglobin 30.7 pg Mean Corpuscular Hemoglobin Concent 32.3 g/dl RDW Standard Deviation 47.0 fL RDW Coefficient of Variation 13.6 % Platelet Count 155 K/uL Mean Platelet Volume 9.1 fL Activated Partial Thromboplast Time 34.5 SECONDS Partial Thromboplastin Ratio 1.3 Sodium Level 139 mmol/L Potassium Level 5.0 mmol/L Chloride Level 110 mmol/L Carbon Dioxide Level 20 mmol/L Anion Gap 9.0 mmol/L Blood Urea Nitrogen 47 mg/dl Creatinine 2.47 mg/dl Est Creatinine Clear Calc Drug Dose 29.8 ml/min Estimated GFR () 28.7 Estimated GFR (Non- 24.7 BUN/Creatinine Ratio 18.8 Random Glucose 122 mg/dl Calcium Level 8.8 mg/dl Imaging: EKG: SR and AV pacing Telemetry reviewed: SR, A pacing, frequent premature beats. No clear AF Assessment and Plan Chest discomfort and elevated enzymes: Presumably due to small vessel disease, no new occluded vessel at cath. Descending pattern suggests demand ischemia not an acute event. Resume Imdur, continue other meds. Could this be GI with demand ischemia due to stress? AF: In SR and A pacing here (do not see AF, pacer could be interrogated to see but probably not necessary). Back on Eliis
[2017-08-02] MEDS ORDERED: ISOSORBIDE MONONITRATE 30 MG TABCR PO ONE (09:45)
[2017-08-02] MEDS ORDERED: ISOS30TA3 PO (10:04)
[2017-08-02] MEDS ORDERED: ELQ25 PO (10:04)
--- NOTE | 2017-08-02 10:11 | Discharge Instructions ---
Discharge Instructions Date of Service Aug 02, 2017. Admission Reason for Admission: Chest Pain Discharge Discharge Diagnosis / Problem: Chest pain, left heart catheterization Discharge Goals Goal(s): Improve function, Improve disease control Activity Recommendations Activity Limitations: resume your previous activity . Instructions / Follow-Up Instructions / Follow-Up Medications: no new medications, resume your Eliquis and start taking the Imdur that was prescribed by Dr. Herrmann Chest pain, unstable angina left heart catheterization showed that the bypass vessels are patent you have some significant disease in small vessels, these need to be management medically cardiology recommends Bystolic, Plavix, Lipitor, Imdur, Nitro SL as needed follow up with cardiology as needed GERD: continue to take Protonix please discuss with cardiology further as this interacts with Plavix and you do not take aspirin due to PUD history FOLLOW UP - keep appointment with Dr. Solo on 08/25 - if you continue to experience fatigue, dyspnea on exertion, chest pain, please call cardiology office for sooner follow up Current Hospital Diet Patient's current hospital diet: AHA Diet (Heart Healthy), Diabetes Type 1 Diet Discharge Diet Recommended Diet: AHA Diet (Heart Healthy), Diabetes Type 1 Diet Procedures Procedures Performed: Left heart catheterization, see report for details Pending Studies Studies pending at discharge: no Laboratory Results Hemoglobin A1c Test 05/14/17 12:51 Range/Units Estimated Average Glucose 163 mg/dl Hemoglobin A1c 7.3 H 4.5-5.6 % Medical Emergencies . Who to Call and When: Medical Emergencies: If at any time you feel your situation is an emergency, please call 911 immediately. . Non-Emergent Contact Non-Emergency issues call your: Primary Care Provider, Associate Professor Of Church Music Call Non-Emergent contact if: you have any medication questions if you have chest pain, dyspnea, fatigue, uncontrolled reflux . . "Provider Documentation" section prepared by Braulio Hurtado. . [place] Drug Monitoring Program Search Results: no issues identified
[2017-08-02 10:12] VITALS: BP 110/67; PULSE 78; O2SAT 96
--- NOTE | 2017-08-02 12:59 | Discharge Summary ---
Discharge Summary Date of Service Aug 02, 2017. Discharge Summary Admission Date: Aug 01, 2017 at 10:35 Discharge Date: Aug 02, 2017 Discharge Disposition: Home Principal Diagnosis: Chest pain Problems/Secondary Diagnoses: CAD s/p CABG, stents s/p AVR Atrial fibrillation GERD HTN h/o PUD DM type I with insulin pump Immunizations: Have You Had Influenza Vaccine: Yes History of Tetanus Vaccine?: UTD History of Pneumococcal: Yes History of Hepatitis B Vaccine: No Procedures: Left heart catheterization on 08/01: patent grafts, moderate to severe stenosis in smaller vessels, cannot be stented, medical management Consultations: Cardiology Medication Reconciliation New Medications: Isosorbide Mononitrate Ext Rel (Imdur Ext Rel) 30 Mg Ertab 1 TAB PO DAILY for 30 Days, #30 TAB 5 Refills Apixaban (Eliquis) 2.5 Mg Tab 5 MG PO BID, #60 TAB 1 Refill Continued Medications: Acyclovir (Acyclovir) 400 Mg Tab 400 MG PO QPM Atorvastatin (Lipitor) 80 Mg Tab 80 MG PO QPM, TAB Calcitriol (Calcitriol) 0.5 Mcg Cap 0.5 MCG PO QAM Cholecalciferol (Vitamin D3) 2,000 Unit Cap 1 CAP PO QAM, CAP Clopidogrel (Plavix) 75 Mg Tab 75 MG PO QPM Restart in 2 days if urine clear Cyanocobalamin (Vitamin B12) 1,000 Mcg Tab 1 TAB PO QAM Folic Acid (Folvite) 1 Mg Tab 1 CAP PO QAM, TAB Insulin Human Lispro (Insulin Humalog Pump ) Pump 1 EA N/A UD, EA Iron Combinations (Iron Complex) 1 Cap Cap 65 MG PO QAM Magnesium Oxide (Mag-Ox) 400 Mg Tab 400 MG PO QAM, TAB Nebivolol Hcl (Bystolic) 5 Mg Tab 5 MG PO BID PRN for BP VALUES, TAB Ocuvite Preservision (Ocuvite Preservision) 1 Tab Tab 1 TAB PO BID, TAB Pantoprazole (Protonix) 40 Mg Tab 40 MG PO QAM, TAB Probiotic Product (Probiotic) 1 Cap Cap 1 CAP PO QAM Vitamin B Cmplx/Vitc/Folic Ac (Nephrocaps) Cap 1 CAP PO QAM, CAP Discharge Exam Patient doing well, no chest pain, no dyspnea. Says he is fatigued, did not sleep well, wants to go home. Discussed case with Dr. Parisi, agreed he was okay for discharge. Reviewed labs, Cr up slightly at 2.4 from baseline 2.2, likely from contrast reviewed medications with patient, he said that he had the Imdur prescription at home Review of Systems: Constitutional: + fatigue, No fever, No chills, No sweats, No weight loss, No weakness, No problem reported Eyes: No worsening of vision, No eye pain, No redness, No discharge, No diplopia, No problem reported ENT: No hearing loss, No unusual epistaxis, No nasal symptoms, No sore throat, No tinnitus, No dental problems, No trouble swallowing, No problem reported Respiratory: No cough, No sputum, No wheezing, No shortness of breath, No dyspnea on exertion, No dyspnea at rest, No hemoptysis, No problem reported Cardiovascular: No chest pain, No orthopnea, No PND, No edema, No claudication, No palpitations, No problem reported Abdomen: + problem reported (reflux symptoms), No pain, No nausea, No vomiting, No diarrhea, No constipation, No GI bleeding Musculoskeletal: No joint pain, No muscle pain, No swelling, No calf pain, No problem reported Genitourinary - Male: No hematuria, No dysuria, No urinary frequency, No urinary urgency Neurologic: No memory loss, No paralysis, No weakness, No numbness/tingling , No vertigo, No balance problems, No problem reported Psychiatric: No depression symptoms, No anhedonism, No anxiety, No insomnia , No substance abuse, No problem reported Endocrine: No fatigue, No excessive thirst, No excessive urination, No problem reported Hematologic / Lymphatic: No abnormal bleeding/bruising, No clotting problems , No swollen lymph nodes, No night sweats, No problem reported Integumentary: No rash, No itch, No new/changing skin lesions, No color change, No bleeding, No problem reported Physical Exam: General Appearance: WD/WN, no apparent distress Eyes: normal inspection, EOMI, sclerae normal ENT: normal ENT inspection, hearing grossly normal, pharynx normal Neck: supple, no adenopathy, no JVD, trachea midline Respiratory/Chest: chest non-tender, lungs clear, normal breath sounds, no respiratory distress, no accessory muscle use Cardiovascular: regular rate, rhythm, no edema, no gallop, no JVD, no murmur , normal peripheral pulses Abdomen / GI: normal bowel sounds, non tender, soft, no organomegaly Extremities: normal inspection, no calf tenderness, normal capillary refill , no pedal edema, normal range of motion, pelvis stable Neurologic/Psychiatric: life educator II-XII nml as tested, no motor/sensory deficits , alert, normal mood/affect, normal reflexes, oriented x 3 Skin: normal color, warm/dry, no rash Lymphatic: no adenopathy Hospital Course 72 y/o M Hx CAD, HTN, HPL, chronic anemia, CKD III, A flutter, 3' heart block - pacer, Aortic valve replacement, DM I. Pt was sent in from his therapist rrt's office for potential cardiac cath due to a failed stress test. The pt underwent cardioversion for AF on 07/29 and developed some chest pressure following the procedure. He was therefore scheduled for the stress test. He is asymptomatic on admission. Initial labs are notable for mild hyperkalemia, worsening renal function, and a mild troponin elevation. 1) chest pain with h/o CAD, s/p CABG and stenting experienced increased chest pain, diaphoresis, dyspnea prior to nuclear medicine stress test admitted to tele taken for left heart catheterization on 08/01, see report for full details grafts patent, significant disease in small vessels, recommended medical treatment d/c home on Plavix, Lipitor 80mg, Bystolic 5mg BID, Imdur 30mg daily 2) CKD stage III with mild rise in Cr up to 2.47 today after left heart cath patient will stay well hydrated says that his Cr has bumped slightly in the past with contrast follow up with PCP 3) HyperK - resolved, K is 5.0 after some fluids and kayexalate not on any potassium raising medications continue to monitor outpatient 4) DM - can continue to use his pump 5) HTN - cont Nabivolol 6) Anemia - Hb is at baseline 7) Afib/flutter - rhythm currently paced - cont Eliquis post cath 8) GERD: uses Protonix, well aware of decreased effectiveness of Plavix patient needs the PPI due to severity of symptoms off of PPI cannot take aspirin, had PUD on aspirin Total Time Spent: Greater than 30 minutes This includes examination of the patient, discharge planning, medication reconciliation, and communication with other providers. Discharge Instructions Please refer to the electronic Patient Visit Report (Discharge Instructions) for additional information. Follow-Up Dr. Solo in two weeks as previously scheduled will follow up with PCP or cardiology sooner if he has any worrisome symptoms Additional Copies To Jamar Solo M.D.; Toni Herrmann M.D.
== END 2017-08-02 10:59 | disposition home or self-care (01) ==
LOC: EDBD 09:02 → C.EDB 09:04 → C.2T 10:35 → ENRESERV 11:05
PROVIDERS: ADMIT Internal Medicine; ATTEND Internal Medicine
DX: I25.110 Atherosclerotic heart disease of native coronary artery with unstable angina pectoris (principal); I48.91 Unspecified atrial fibrillation; K21.9 Gastro-esophageal reflux disease without esophagitis; E10.40 Type 1 diabetes mellitus with diabetic neuropathy, unspecified; I12.9 Hypertensive chronic kidney disease with stage 1 through stage 4 chronic kidney disease, or unspecified chronic kidney disease; D64.9 Anemia, unspecified; N18.3 Chronic kidney disease, stage 3 (moderate); E87.5 Hyperkalemia; I48.92 Unspecified atrial flutter; I73.9 Peripheral vascular disease, unspecified; E03.9 Hypothyroidism, unspecified; N25.81 Secondary hyperparathyroidism of renal origin; M19.90 Unspecified osteoarthritis, unspecified site; Z87.11 Personal history of peptic ulcer disease; Z87.442 Personal history of urinary calculi; Z86.010 Personal history of colon polyps; Z98.84 Bariatric surgery status; Z95.2 Presence of prosthetic heart valve; Z90.49 Acquired absence of other specified parts of digestive tract; Z85.828 Personal history of other malignant neoplasm of skin; Z95.1 Presence of aortocoronary bypass graft; Z98.1 Arthrodesis status; Z82.49 Family history of ischemic heart disease and other diseases of the circulatory system; Z83.3 Family history of diabetes mellitus

== ENCOUNTER → 2017-08-01 | Outpatient (CLI) | payer OTHER, BC ==
[~2017-08-01] MED LIST changes: -CIPR-255 PO; +ELQ25 PO; +ISOS30TA3 PO; -LIDOCAINE HCL 2% 2 ML VIAL (20MG/ML) ONE; -OXYC7.5T65 PO; -PROPOFOL IV EMULSION 10 MG/ML 20 ML VIAL IV ONE; +REGADENOSON 0.4 MG/5 ML SYR ONE
--- NOTE | 2017-08-05 09:38 | MYOCARDIAL PERFUSION SCAN ---
ONE-DAY NUCLEAR MEDICINE TECHNETIUM-99M CARDIOLITE MYOCARDIAL PERFUSION SCAN. CLINICAL HISTORY: This stress test is being performed because of a chest pain syndrome. The patient with known coronary artery disease. TECHNIQUE: The patient did receive a dose of Cardiolite for the rest portion of the study. However, when brought back for the stress portion of the study, the patient was experiencing classic angina pectoris with nausea, diaphoresis, and shortness of breath. The patient was evaluated by myself. On my arrival, the patient's symptoms had resolved. However, he was escorted to the Emergency Room for further care. The stress portion of the study was never performed.
== END | disposition home or self-care (01) ==
LOC: C.NUCL 06:41
PROVIDERS: ATTEND Internal Medicine Cardiovascular Disease
DX: I25.10 Atherosclerotic heart disease of native coronary artery without angina pectoris (principal); R07.9 Chest pain, unspecified

== ENCOUNTER → 2017-08-04 | Outpatient (CLI) | payer OTHER, BC ==
[~2017-08-04] MED LIST changes: +ELQ25 PO; +ISOS30TA3 PO
--- NOTE | 2017-08-04 14:43 | DIAGNOSTIC IMAGING REPORT ---
ULTRASOUND KIDNEYS AND BLADDER CLINICAL HISTORY: Nephrolithiasis. COMPARISON STUDY: Abdominal CT dated 05/13/2017. TECHNIQUE: Real-time, grayscale, and color flow sonography of the kidneys and bladder is performed. Images are reviewed in the transverse and longitudinal planes. FINDINGS: Kidneys: The kidneys are atrophic. The right kidney measures 8.4 x 4.9 x 4.3 cm and the left kidney measures 8.1 x 4.9 x 3.6 cm. There is no hydronephrosis. No shadowing renal calculi are identified. There is no sonographic evidence of contour deforming renal mass lesion. No perinephric fluid is identified. Bladder: The bladder is decompressed and not well evaluated. Ureteral jets were not seen. IMPRESSION: 1. The kidneys are atrophic and without hydronephrosis. 2. The bladder was decompressed and not well assessed. Electronically signed by: Juancho Shaffer M.D. 08/04/2017 2:41 PM Dictated Date/Time: 08/04/2017 2:40 PM
== END | disposition home or self-care (01) ==
LOC: C.ULTR 13:48
PROVIDERS: ATTEND Urology
DX: N20.0 Calculus of kidney (principal)

== ENCOUNTER 2017-08-07 22:23 | Emergency (ER) | payer OTHER, BC ==
[~2017-08-07] VITALS: Ht 177.8 cm; Wt 100.5 kg
[2017-08-07 22:25] VITALS: TEMP 36.4; Ht 177.8 cm; Wt 100.5 kg
--- NOTE | 2017-08-08 00:17 | EMERGENCY ROOM VISIT NOTE ---
History Report prepared by Nancyibemerald: Geronimo Mccabe Under the Supervision of: Nena CoelloO. First contact with patient: 22:37 Chief Complaint: FALL Stated Complaint: FALL/ HEAD, NECK, SHOULDER PAIN History of Present Illness The patient is a 72 year old male who presents to the Emergency Room with complaints of an episodic general fall one hour ago. He states that he was getting himself a snack and preparing to take his medications when he tripped over his dog. He notes that he was nauseous earlier, though denies any current nausea. He notes left shoulder pain. The patient notes that his blood sugar was 68 and declining rapidly. He denies feeling lightheaded prior to the fall. He notes that he passed out from the fall, though he is unsure how long he was out of it. He denies any back pain, though reports neck pain and head pain. He is taking Eliquis. He has a pacemaker. He has a history of diabetes and has an insulin pump on his abdomen. The patient is on a backboard and has a c-collar in place. Source of History: patient Onset: one hour ago Position: other (general ) Quality: other (fall) Associated Symptoms: + LOC, + neck pain, + nausea, No back pain Note: He notes head pain and left shoulder pain. He denies any lightheadedness. Review of Systems See HPI for pertinent positives & negatives. A total of 10 systems reviewed and were otherwise negative. Past Medical & Surgical Medical Problems: (1) Anemia (2) Basal cell carcinoma of left forehead (3) Bleeding (4) Chronic kidney disease (5) Diabetes (6) Diabetic foot ulcer associated with type 1 diabetes mellitus (7) Diabetic peripheral neuropathy associated with type 1 diabetes mellitus (8) Foot deformity (9) Heart disease (10) History of diabetic ulcer of foot (11) Hypertension (12) Kidney failure (13) Kidney stones (14) Kidney stones (15) Loss of sensation (16) Renal tubular acidosis, type 4 (17) Stomach problems (18) Ulcer Surgical Problems: (1) Aortic valve replaced (2) Hx of CABG (3) Hx of CABG (4) S/P triple vessel bypass Family History Cancer Diabetes mellitus FH: heart attack Gallbladder disease Heart disease Hypertension Social History Smoking Status: Never Smoker Smokeless Tobacco Use: No Alcohol Use: none Drug Use: none Marital Status: Housing Status: lives with significant other Occupation Status: retired Current/Historical Medications Scheduled Acyclovir (Acyclovir), 400 MG PO QPM Apixaban (Eliquis), 5 MG PO BID Atorvastatin (Lipitor), 80 MG PO QPM Calcitriol (Calcitriol), 0.5 MCG PO QAM Cholecalciferol (Vitamin D3), 1 CAP PO QAM Clopidogrel (Plavix), 75 MG PO QPM Cyanocobalamin (Vitamin B12), 1 TAB PO QAM Folic Acid (Folvite), 1 CAP PO QAM Insulin Human Lispro (Insulin Humalog Pump ), 1 EA N/A UD Iron Combinations (Iron Complex), 65 MG PO QAM Isosorbide Mononitrate Ext Rel (Imdur Ext Rel), 1 TAB PO DAILY Magnesium Oxide (Mag-Ox), 400 MG PO QAM Ocuvite Preservision (Ocuvite Preservision), 1 TAB PO BID Pantoprazole (Protonix), 40 MG PO QAM Probiotic Product (Probiotic), 1 CAP PO QAM Vitamin B Cmplx/Vitc/Folic Ac (Nephrocaps), 1 CAP PO QAM Scheduled PRN Nebivolol Hcl (Bystolic), 5 MG PO BID PRN for BP VALUES Allergies Coded Allergies: No Known Allergies (Verified , 08/07/17) Physical Exam Vital Signs Date Time Temp Pulse Resp B/P (MAP) Pulse Ox O2 Delivery O2 Flow Rate FiO2 08/07/17 22:25 36.4 70 18 152/96 98 Room Air Physical Exam CONSTITUTIONAL/VITAL SIGNS: Reviewed / noted above. GENERAL: Non-toxic in appearance. INTEGUMENTARY: Warm, dry, and [place]. HEAD: Small abrasion/hematoma to left parietal area. EYES: without scleral icterus or trauma. ENT/OROPHARYNX: clear and moist. Mild generalized discomfort to the cervical region. LYMPHADENOPATHY/NECK: Is supple without lymphadenopathy or meningismus. RESPIRATORY: Lungs clear and equal. CARDIOVASCULAR: Regular rate and rhythm. GI/ABDOMEN: Soft and nontender. No organomegaly or pulsatile mass. No rebound or guarding. Normal bowel sounds. EXTREMITIES: Warm and well perfused. Mild discomfort to palpation of left shoulder, ROM without crepitus or significant discomfort. BACK: No CVA tenderness. NEUROLOGICAL: Intact without focal deficits. PSYCHIATRIC: normal affect. MUSCULOSKELETAL: Normally developed with good muscle tone. Medical Decision & Procedures ER Provider Diagnostic Interpretation: Radiology results as stated below per my review and radiologist interpretation: CT HEAD: No intracranial hemorrhage or skull fracture. Left scalp swelling. Involutional changes with small vessel disease. Cataract surgery. Debris in the sphenoid sinus. Cardiac surgery and pacemaker. Radiologist: Williams Duran M.D. Study ready at 23:29 and initial results transmitted at 23:37 CT C SPINE: No acute fracture or malalignment. Degenerative and surgical changes in the spine. Debris in the sphenoid sinus. Left pleural effusion. Radiologist: Williams Duran M.D. Study ready at 23:29 and initial results transmitted at 23:43 ED Course 2240: Previous medical records were reviewed. The patient was evaluated in room B10. A complete history and physical examination was performed. 0012: I reassessed the patient at this time. He is resting comfortably. I discussed the results and treatment plan with the patient. I answered all pertaining questions that he had. He expressed understanding and verbalized agreement. The patient will be discharged home. Medical Decision Differentials include: Close head injury, intracranial bleed, facial trauma, cervical spine trauma, chest and thoracic trauma, abdominal and intra-abdominal trauma, spine neurologic trauma, and extremity trauma. This is a 72-year-old male who presents to the ED with a chief complaint of a fall. The patient is on Eliquis. He states that he tripped over his dog and fell striking the left side of his head. He presents with some neck discomfort and hematoma on the left side of his head. The patient does report some left shoulder discomfort as well. The patient denies any other significant complaints. Exam as noted above. There is no obvious fractures of his extremities. He does have a hematoma to the left side of the head. CT scan of the head and the cervical spine did not show acute traumatic abnormalities. Patient was told the results. He did not want pain medication. He is felt to be stable for discharge. Medication Reconcilliation Current Medication List: was personally reviewed by me Blood Pressure Screening Patient's blood pressure: Elevated blood pressure Blood pressure disposition: Elevated BP felt to be situational Impression Primary Impression: Fall Additional Impression: Contusion of multiple sites Scribe Attestation The scribe's documentation has been prepared under my direction and personally reviewed by me in its entirety. I confirm that the note above accurately reflects all work, treatment, procedures, and medical decision making performed by me. Departure Information Dispostion Home / Self-Care Referrals Jamar Solo M.D. (PCP) Patient Instructions My [facility] Additional Instructions Follow-up with your doctor for further care and evaluation in 1-2 days. Return to the emergency department for worsening or new symptoms or any concerns. You have been examined and treated today on an emergency basis only. This is not a substitute for, or an effort to provide, complete comprehensive medical care. It is impossible to recognize and treat all injuries or illnesses in a single emergency department visit. It is therefore important that you follow up closely with your doctor. Call as soon as possible for an appointment. Take Tylenol as needed for pain. Problem Qualifiers
[2017-08-08 00:37] VITALS: BP 166/100; PULSE 71; O2SAT 99
--- NOTE | 2017-08-08 07:07 | DIAGNOSTIC IMAGING REPORT ---
CT OF THE CERVICAL SPINE WITHOUT CONTRAST CLINICAL HISTORY: Fall. Neck pain. COMPARISON STUDY: Cervical spine CT December 23, 2005 and MRI of the cervical spine May 15, 2007. TECHNIQUE: Helical axial images of the cervical spine were obtained without IV contrast. Sagittal and coronal reconstructions were viewed. A dose lowering technique was utilized adhering to the principles of ALARA. FINDINGS: Alignment of the cervical spine is anatomic. There is no acute cervical spine fracture. Craniocervical junction is intact. There is no prevertebral edema. The patient is status post C3-C7 laminectomy. A portion of the posterior elements of T1 also been resected. Moderate multilevel degenerative disc disease and facet arthrosis is present. There is debris within the right sphenoid sinus. A left pleural effusion is partially imaged. IMPRESSION: 1. No acute cervical spine fracture or subluxation. 2. Status post C3-C7 laminectomy. Electronically signed by: Servando Tidwell M.D. 08/08/2017 7:05 AM Dictated Date/Time: 08/08/2017 7:01 AM
--- NOTE | 2017-08-08 07:12 | DIAGNOSTIC IMAGING REPORT ---
CT SCAN OF THE BRAIN WITHOUT IV CONTRAST CLINICAL HISTORY: Fall. COMPARISON STUDY: CT of the brain dated 12/23/2005. TECHNIQUE: Unenhanced axial CT scan of the brain is performed from the vertex to the skull base. A dose lowering technique was utilized adhering to the principles of ALARA. CT DOSE: 1112.94 mGy.cm FINDINGS: Brain parenchyma: There are age-related involutional changes noting mild to moderate subcortical and periventricular microangiopathic change. There is no hemorrhage, mass effect, or evidence of acute territorial ischemia by CT criteria. Lucas-white matter is preserved. No extra-axial fluid collection is seen. Ventricles, sulci, cisterns: Prominent secondary to involutional change. Intracranial vasculature: There is atherosclerotic calcification of the cavernous carotid and vertebral arteries. Calvarium: The skeletal structures are osteopenic. No depressed calvarial fracture is seen. Soft tissues: There are small left parietal and right posterior parietal scalp contusions. Sinuses and mastoids: Mucosal thickening and secretions are present within the right sphenoid sinus. The remaining visualized paranasal sinuses are clear. The mastoid air cells are well pneumatized. Orbits: The bony orbits are grossly intact. There are bilateral ocular lens implants. IMPRESSION: There is no hemorrhage, mass effect, or evidence of acute territorial ischemia by CT criteria. Electronically signed by: Juancho Shaffer M.D. 08/08/2017 7:11 AM Dictated Date/Time: 08/08/2017 7:08 AM
== END 2017-08-08 00:37 | disposition home or self-care (01) ==
LOC: EDBD 22:23 → C.EDB 22:23
DX: S06.0X9A Concussion with loss of consciousness of unspecified duration, initial encounter (principal); W01.198A Fall on same level from slipping, tripping and stumbling with subsequent striking against other object, initial encounter; M25.512 Pain in left shoulder; M54.2 Cervicalgia; E11.22 Type 2 diabetes mellitus with diabetic chronic kidney disease; N18.9 Chronic kidney disease, unspecified; I13.10 Hypertensive heart and chronic kidney disease without heart failure, with stage 1 through stage 4 chronic kidney disease, or unspecified chronic kidney disease; Z79.4 Long term (current) use of insulin; Z79.01 Long term (current) use of anticoagulants; Z95.0 Presence of cardiac pacemaker; Z83.3 Family history of diabetes mellitus; Z83.79 Family history of other diseases of the digestive system; Z82.49 Family history of ischemic heart disease and other diseases of the circulatory system

== ENCOUNTER → 2017-08-25 | Outpatient (CLI) | payer OTHER, BC ==
[2017-08-25 17:19] LABS: ALBUMIN 3.2 gm/dl (3.4-5.0); ALT/SGPT 53 U/L (12-78); AST/SGOT 40 U/L (15-37); BLOOD UREA NITROGEN 45 mg/dl (7-18); CALCIUM 9.1 mg/dl (8.5-10.1); CARBON DIOXIDE 20 mmol/L (21-32); GLUCOSE 253 mg/dl (70-99); SODIUM 138 mmol/L (136-145)
[2017-08-25 17:30] LABS: ALKALINE PHOSPHATASE 246 U/L (45-117); TOTAL PROTEIN 7.4 gm/dl (6.4-8.2)
[2017-08-25 17:33] LABS: MONOSPOT NEG (NEG)
== END | disposition home or self-care (01) ==
LOC: C.LABBFT 15:05
PROVIDERS: ATTEND Internal Medicine
DX: R53.83 Other fatigue (principal)

== ENCOUNTER → 2017-09-29 | Outpatient (CLI) | payer OTHER, BC ==
[2017-09-29 15:46] LABS: HEMATOCRIT 32.3 % (42-52); HEMOGLOBIN 10.9 g/dL (14.0-18.0); MEAN CELL VOLUME 93.9 fL (80-100); MEAN CORPUSCULAR HEMOGLOBIN 31.7 pg (25-34); MEAN CORPUSCULAR HGB CONC 33.7 g/dl (32-36); MEAN PLATELET VOLUME 8.9 fL (7.4-10.4); PLATELET COUNT 155 K/uL (130-400); RED CELL DISTRIBUTION WIDTH CV 14.6 % (11.5-14.5); RED CELL DISTRIBUTION WIDTH SD 49.8 fL (36.4-46.3)
[2017-09-29 16:05] LABS: ALBUMIN 3.5 gm/dl (3.4-5.0); BLOOD UREA NITROGEN 55 mg/dl (7-18); CALCIUM 8.9 mg/dl (8.5-10.1); CARBON DIOXIDE 26 mmol/L (21-32); CREATININE 2.55 mg/dl (0.60-1.40); GLUCOSE 151 mg/dl (70-99); POTASSIUM 5.1 mmol/L (3.5-5.1); SODIUM 140 mmol/L (136-145)
[2017-09-29 16:16] LABS: PHOSPHORUS 3.7 mg/dl (2.5-4.9)
== END | disposition home or self-care (01) ==
LOC: C.LAB1850 15:18
PROVIDERS: ATTEND Internal Medicine Nephrology
DX: N18.3 Chronic kidney disease, stage 3 (moderate) (principal); N20.0 Calculus of kidney; I12.9 Hypertensive chronic kidney disease with stage 1 through stage 4 chronic kidney disease, or unspecified chronic kidney disease; D64.9 Anemia, unspecified; N25.81 Secondary hyperparathyroidism of renal origin; R60.9 Edema, unspecified; E03.9 Hypothyroidism, unspecified

== ENCOUNTER → 2017-09-30 | Outpatient (CLI) | payer OTHER, BC | END | disposition home or self-care (01) | LOC: C.LABSPEC 17:09 | PROVIDERS: ATTEND Podiatrist Foot & Ankle Surgery | DX: L97.509 Non-pressure chronic ulcer of other part of unspecified foot with unspecified severity (principal) ==

== ENCOUNTER → 2017-10-07 | Outpatient (CLI) | payer OTHER, BC ==
[2017-10-07 15:45] LABS: BLOOD UREA NITROGEN 56 mg/dl (7-18); CALCIUM 9.2 mg/dl (8.5-10.1); CARBON DIOXIDE 25 mmol/L (21-32); CREATININE 2.31 mg/dl (0.60-1.40); GLUCOSE 115 mg/dl (70-99); POTASSIUM 4.5 mmol/L (3.5-5.1); SODIUM 140 mmol/L (136-145)
== END | disposition home or self-care (01) ==
LOC: C.LAB1850 12:57
PROVIDERS: ATTEND Internal Medicine Cardiovascular Disease
DX: N18.3 Chronic kidney disease, stage 3 (moderate) (principal)

== ENCOUNTER 2017-10-10 09:38 | Emergency (ER) | payer OTHER, BC ==
[~2017-10-10] VITALS: Ht 177.8 cm; Wt 94.6 kg
[~2017-10-10 09:38] MED LIST changes: -LIDOCAINE HCL 2% 2 ML VIAL (20MG/ML) ONE; -PROPOFOL IV EMULSION 10 MG/ML 20 ML VIAL ONE
[2017-10-10 09:44] VITALS: TEMP 36.9; Ht 177.8 cm; Wt 94.6 kg
[2017-10-10 09:55] VITALS: O2SAT 100
[2017-10-10] MEDS ORDERED: SODIUM CHLORIDE 0.9% 250ML 250 ML IV STA (10:03)
--- NOTE | 2017-10-10 10:04 | EMERGENCY ROOM VISIT NOTE ---
History Report prepared by Vinh: Keyshawn Hobbs Under the Supervision of: Dr. Rubén Castro M.D. First contact with patient: 09:52 Chief Complaint: CARDIAC ASSESSMENT Stated Complaint: CHEST PRESSURE PAIN, SOB, DIZZY History of Present Illness The patient is a 72 year old male who presents to the Emergency Room with complaints of resolved lightheadedness beginning this morning. The patient states that he has a history of atrial fibrillation and atrial flutter, and was cardioverted today at 0745. He notes he was discharged following the procedure and began feeling symptoms while at breakfast. He reports that he felt lightheaded and felt like he might pass out. The patient states that his lightheadedness worsened when he walked and he notes that he felt better when he sat down. He reports that he is currently feeling normal and is no longer lightheaded. He denies having a headache. The patient states that he has been on amiodarone for the last four days. He notes that he also has a pacemaker due to having a complete heart block during an aortic valve replacement five years ago. He reports that he is on eliquis and Plavix for his atrial fibrillation. The patient states that his blood sugar is currently at 225. Source of History: patient Onset: this morning Position: head Quality: other (lightheadedness) Timing: resolved Modifying Factors (Worsening): other (walking) Modifying Factors (Relieving): other (sitting down) Associated Symptoms: No headache Review of Systems See HPI for pertinent positives and negatives. A total of ten systems were reviewed and were otherwise negative. Past Medical & Surgical Medical Problems: (1) Anemia (2) Atrial fibrillation (3) Basal cell carcinoma of left forehead (4) Bleeding (5) Chronic kidney disease (6) Complete heart block (7) Diabetes (8) Diabetic foot ulcer associated with type 1 diabetes mellitus (9) Diabetic peripheral neuropathy associated with type 1 diabetes mellitus (10) Foot deformity (11) Heart disease (12) History of cardioversion (13) History of diabetic ulcer of foot (14) Hypertension (15) Kidney failure (16) Kidney stones (17) Kidney stones (18) Loss of sensation (19) Pacemaker (20) Renal tubular acidosis, type 4 (21) Stomach problems (22) Ulcer Surgical Problems: (1) Aortic valve replaced (2) Hx of CABG (3) Hx of CABG (4) S/P triple vessel bypass Family History Cancer Diabetes mellitus FH: heart attack Gallbladder disease Heart disease Hypertension Social History Smoking Status: Never Smoker Alcohol Use: none Drug Use: none Marital Status: Housing Status: lives with family Occupation Status: retired Current/Historical Medications Scheduled Acyclovir (Acyclovir), 400 MG PO QPM Amlodipine (Norvasc), 2.5 MG PO DAILY Apixaban (Eliquis), 5 MG PO BID Atorvastatin (Lipitor), 80 MG PO QPM Calcitriol (Calcitriol), 0.5 MCG PO QAM Cholecalciferol (Vitamin D3), 2,000 UNITS PO QAM Clopidogrel (Plavix), 75 MG PO QPM Cyanocobalamin (Vitamin B12), 1,000 MCG PO QAM Ferrous Sulfate (Iron), 325 MG PO DAILY Folic Acid (Folvite), 1 MG PO QAM Insulin Human Lispro (Insulin Humalog Pump ), 1 EA N/A UD Magnesium Oxide (Mag-Ox), 400 MG PO QAM Nitroglycerin (Nitrostat), 0.4 MG UT PRN Ocuvite Preservision (Ocuvite Preservision), 1 TAB PO BID Pantoprazole (Protonix), 40 MG PO QAM Vitamin B Cmplx/Vitc/Folic Ac (Nephrocaps), 1 CAP PO QAM Scheduled PRN Furosemide (Lasix), 40 MG PO DAILY PRN for Documentation Nebivolol Hcl (Bystolic), 5 MG PO BID PRN for BP VALUES Allergies Coded Allergies: Lisinopril (Unverified Allergy, Unknown, ., 10/10/17) Physical Exam Vital Signs Date Time Temp Pulse Resp B/P (MAP) Pulse Ox O2 Delivery O2 Flow Rate FiO2 10/10/17 13:45 70 20 135/78 98 10/10/17 13:24 70 18 147/67 98 Room Air 10/10/17 12:00 74 19 148/91 98 Room Air 10/10/17 10:00 80 16 137/94 99 Room Air 10/10/17 09:57 78 10/10/17 09:55 100 Room Air 10/10/17 09:55 100 Room Air 10/10/17 09:54 78 10/10/17 09:44 36.9 85 16 139/64 94 Room Air Physical Exam GENERAL: Awake, alert, anxious appearing, in no distress HENT: Normocephalic, atraumatic. Oropharynx unremarkable. Dry mucous membranes. EYES: Normal conjunctiva. Sclera non-icteric. NECK: Supple. No nuchal rigidity. FROM. No JVD. RESPIRATORY: Clear to auscultation. CARDIAC: Regular rate, normal rhythm. Extremities warm and well perfused. Pulses equal. ABDOMEN: Soft, non-distended. No tenderness to palpation. No rebound or guarding. No masses. RECTAL: Deferred. MUSCULOSKELETAL: Chest examination reveals no tenderness. The back is symmetrical on inspection without obvious abnormality. There is no CVA tenderness to palpation. No joint edema. LOWER EXTREMITIES: Calves are equal size bilaterally and non-tender. Scant lower extremity edema. No discoloration. NEURO: Normal sensorium. No sensory or motor deficits noted. SKIN: No rash or jaundice noted. Medical Decision & Procedures ER Provider Diagnostic Interpretation: Radiology results as stated below per my review and radiologist interpretation: HEAD WITHOUT CONTRAST (CT) FINDINGS: Ad Trafficker topogram: Unremarkable. Proportional ventricular and sulcal prominence, likely age-related parenchymal volume loss. Periventricular and subcortical white matter hypoattenuation, nonspecific but likely indicative of chronic small vessel ischemic change. No mass effect or midline shift. No hemorrhage or acute territorial infarct. No extra-axial fluid collection. Paranasal sinuses and mastoid air cells clear. Calvarium intact. Focus of gas noted in the subcutaneous tissue of the right temporal region, likely intravascular and related to injection. IMPRESSION: 1. Chronic small vessel ischemic change. No acute intracranial abnormality. Electronically signed by: Ez Salazar M.D. 10/10/2017 11:02 AM CHEST ONE VIEW PORTABLE FINDINGS: There are low lung volumes. The heart remains mildly enlarged. Postoperative changes and a left-sided pacemaker are noted. Stable left basilar pleural thickening/effusion. A few linear densities the left lung base favor scarring or atelectasis. This is also unchanged. No evidence for pulmonary edema. No new focal lung consolidations. IMPRESSION: No significant change compared to the prior study. No acute process. Small chronic left pleural effusion is again noted. Electronically signed by: Jamal Dial M.D. 10/10/2017 10:33 AM Laboratory Results 10/10/17 10:00 Red Blood Count 3.47, Mean Corpuscular Volume 93.1, Mean Corpuscular Hemoglobin 31.1, Mean Corpuscular Hemoglobin Concent 33.4, Mean Platelet Volume 9.5, Neutrophils (%) (Auto) 75.1, Lymphocytes (%) (Auto) 13.0, Monocytes (%) (Auto) 8.7, Eosinophils (%) (Auto) 2.4, Basophils (%) (Auto) 0.5, Neutrophils # (Auto) 4.91, Lymphocytes # (Auto) 0.85, Monocytes # (Auto) 0.57, Eosinophils # (Auto) 0.16, Basophils # (Auto) 0.03 10/10/17 10:00 Test 10/10/17 10:00 10/10/17 10:01 White Blood Count 6.54 K/uL (4.8-10.8) Red Blood Count 3.47 M/uL (4.7-6.1) Hemoglobin 10.8 g/dL (14.0-18.0) Hematocrit 32.3 % (42-52) Mean Corpuscular Volume 93.1 fL (80-100) Mean Corpuscular Hemoglobin 31.1 pg (25-34) Mean Corpuscular Hemoglobin Concent 33.4 g/dl (32-36) Platelet Count 155 K/uL (130-400) Mean Platelet Volume 9.5 fL (7.4-10.4) Neutrophils (%) (Auto) 75.1 % Lymphocytes (%) (Auto) 13.0 % Monocytes (%) (Auto) 8.7 % Eosinophils (%) (Auto) 2.4 % Basophils (%) (Auto) 0.5 % Neutrophils # (Auto) 4.91 K/uL (1.4-6.5) Lymphocytes # (Auto) 0.85 K/uL (1.2-3.4) Monocytes # (Auto) 0.57 K/uL (0.11-0.59) Eosinophils # (Auto) 0.16 K/uL (0-0.5) Basophils # (Auto) 0.03 K/uL (0-0.2) RDW Standard Deviation 49.0 fL (36.4-46.3) RDW Coefficient of Variation 14.5 % (11.5-14.5) Immature Granulocyte % (Auto) 0.3 % Immature Granulocyte # (Auto) 0.02 K/uL (0.00-0.02) Anion Gap 9.0 mmol/L (3-11) Est Creatinine Clear Calc Drug Dose 25.7 ml/min Estimated GFR () 23.5 Estimated GFR (Non- 20.3 BUN/Creatinine Ratio 23.4 (10-20) Calcium Level 8.9 mg/dl (8.5-10.1) Phosphorus Level 3.5 mg/dl (2.5-4.9) Magnesium Level 2.0 mg/dl (1.8-2.4) Total Bilirubin 1.0 mg/dl (0.2-1) Direct Bilirubin 0.4 mg/dl (0-0.2) Aspartate Amino Transf (AST/SGOT) 31 U/L (15-37) Alanine Aminotransferase (ALT/SGPT) 29 U/L (12-78) Alkaline Phosphatase 189 U/L (45-117) Troponin I < 0.015 ng/ml (0-0.045) Pro-B-Type Natriuretic Peptide 5112 pg/ml (0-900) Total Protein 7.3 gm/dl (6.4-8.2) Albumin 3.4 gm/dl (3.4-5.0) Lipase 151 U/L (73-393) Thyroid Stimulating Hormone (TSH) 10.400 uIu/ml (0.300-4.500) Free Thyroxine 0.98 ng/dl (0.80-1.60) Bedside Glucose 249 mg/dl (70-99) Laboratory results reviewed by me Medications Administered Medications (Trade) Dose Ordered Sig/Lc Route Start Time Stop Time Status Last Admin Dose Admin Sodium Chloride 250 ml @ 999 mls/hr Q16M STAT IV 10/10/17 10:03 10/10/17 10:18 DC 10/10/17 10:29 999 MLS/HR Sodium Chloride 500 ml @ 999 mls/hr Q31M STAT IV 10/10/17 11:31 10/10/17 12:01 DC 10/10/17 11:54 999 MLS/HR Apixaban (Eliquis Tab) 5 mg NOW STAT PO 10/10/17 12:57 10/10/17 13:09 DC 10/10/17 13:28 5 MG Amiodarone HCl (Cordarone Tab) 400 mg NOW ONCE PO 10/10/17 13:15 10/10/17 13:16 DC 10/10/17 13:28 400 MG ECG Per My Interpretation Indication: other (lightheadedness) Rate (beats per minute): 85 Rhythm: other (AV dual paced) Findings: no acute ischemic change, other (PVCs present) ED Course 0953: The patient was evaluated in room B4. A complete history and physical exam was performed. 1134: I reevaluated and updated the patient. 1306: I rechecked the patient. 1317: Discussed the patient's case with Dr. Glaser - Cardiology, [facility] [place]. 1355: I reevaluated the patient. Discussed results and discharge instructions: He verbalized understanding and agreement. The patient is ready for discharge. Medical Decision I reviewed the patient's past medical history, medications, and the nursing notes as described above. Differential diagnosis: Etiologies such as metabolic, infection, hypo/hyperglycemia, electrolyte abnormalities, cardiac sources, intracerebral event, toxicologic, neurologic, as well as others were entertained. The patient is a 72-year-old gentleman with a past medical history of an AV valve replacement, A. fib on Eliquis and recently started on Amiodarone who presents to the emergency department after having nausea and lightheadedness after having and an outpatient scheduled cardioversion this morning per hpi. On arrival the patient is fatigued appearing but no acute distress, afebrile stable vital signs. He is neuro intact. EKG demonstrates an AV paced rhythm. Chest x-ray unremarkable. WBC and troponin within normal limits. Creatinine 2.9 slightly elevated from recent baseline of 2.1-2.5. BUN/creatinine>20 suggesting prerenal etiology. Patient improved after IV fluid hydration. Interrogation of the patient's Lib[place]y PPM unremarkable. Case was discussed with Dr. Glaser, cardiology computer installation engineer, who agrees that given no concern for cardiac etiology, plan for outpatient follow-up is reasonable if improved after IV fluid hydration. Findings and plan for follow-up reviewed with patient. Patient agreeable and d/c'd per discharge instructions. Medication Reconcilliation Current Medication List: was personally reviewed by me Blood Pressure Screening Patient's blood pressure: Normal blood pressure Blood pressure disposition: Did not require urgent referral Consults Time Called: 1314 Consulting Physician: Dr. Glaser - Cardiology, [facility] [place] Returned Call: [phone] Discussed the patient's case. Impression Primary Impression: Dehydration Additional Impressions: Lightheadedness CKD (chronic kidney disease) Scribe Attestation The scribe's documentation has been prepared under my direction and personally reviewed by me in its entirety. I confirm that the note above accurately reflects all work, treatment, procedures, and medical decision making performed by me. Departure Information Dispostion Home / Self-Care Referrals Jamar Solo M.D. (PCP) Forms IMPORTANT VISIT INFORMATION Patient Instructions Dizziness Fainting Poss Causes, ED Dehydration, ED Insufficiency Renal, [facility] Additional Instructions Please follow up with your primary care physician and media services director in the next week for re-evaluation and to repeat your kidney function tests. Your symptoms today are most likely related to dehydration. Otherwise, your exam, EKG, chest xray, and lab results did not show signs of an emergent condition at this time. Return to the emergency department for worsening symptoms as described in the accompanying instructions. Problem Qualifiers
[2017-10-10 10:17] LABS: BASO % 0.5 %; BASO ABS # 0.03 K/uL (0-0.2); EOS % 2.4 %; EOS ABS # 0.16 K/uL (0-0.5); HEMATOCRIT 32.3 % (42-52); HEMOGLOBIN 10.8 g/dL (14.0-18.0); IG# 0.02 K/uL (0.00-0.02); LYMPH ABS # 0.85 K/uL (1.2-3.4); MEAN CELL VOLUME 93.1 fL (80-100); MEAN CORPUSCULAR HEMOGLOBIN 31.1 pg (25-34); MEAN CORPUSCULAR HGB CONC 33.4 g/dl (32-36); MEAN PLATELET VOLUME 9.5 fL (7.4-10.4); MONO % 8.7 %; MONO ABS # 0.57 K/uL (0.11-0.59); NEUT % 75.1 %; NEUT ABS # 4.91 K/uL (1.4-6.5); PLATELET COUNT 155 K/uL (130-400); RED CELL DISTRIBUTION WIDTH CV 14.5 % (11.5-14.5); WHITE BLOOD COUNT 6.54 K/uL (4.8-10.8)
--- NOTE | 2017-10-10 10:35 | DIAGNOSTIC IMAGING REPORT ---
CHEST ONE VIEW PORTABLE HISTORY: Atypical CHEST PAIN COMPARISON: Chest 08/01/2017. FINDINGS: There are low lung volumes. The heart remains mildly enlarged. Postoperative changes and a left-sided pacemaker are noted. Stable left basilar pleural thickening/effusion. A few linear densities the left lung base favor scarring or atelectasis. This is also unchanged. No evidence for pulmonary edema. No new focal lung consolidations. IMPRESSION: No significant change compared to the prior study. No acute process. Small chronic left pleural effusion is again noted. Electronically signed by: Jamal Dial M.D. 10/10/2017 10:33 AM Dictated Date/Time: 10/10/2017 10:32 AM
[2017-10-10 10:36] LABS: ALBUMIN 3.4 gm/dl (3.4-5.0); ALKALINE PHOSPHATASE 189 U/L (45-117); ALT/SGPT 29 U/L (12-78); AST/SGOT 31 U/L (15-37); BLOOD UREA NITROGEN 68 mg/dl (7-18); CALCIUM 8.9 mg/dl (8.5-10.1); CARBON DIOXIDE 20 mmol/L (21-32); CREATININE 2.91 mg/dl (0.60-1.40); GLUCOSE 245 mg/dl (70-99); LIPASE 151 U/L (73-393); PHOSPHORUS 3.5 mg/dl (2.5-4.9); SODIUM 138 mmol/L (136-145); TOTAL PROTEIN 7.3 gm/dl (6.4-8.2)
--- NOTE | 2017-10-10 11:03 | DIAGNOSTIC IMAGING REPORT ---
HEAD WITHOUT CONTRAST (CT) CLINICAL HISTORY: 72 years-old Male presenting with near syncope, dizziness, cardioverted today, chest pain and shortness of breath. TECHNIQUE: Multidetector CT imaging of the head was performed without the use of intravenous contrast. IV contrast: None. A dose lowering technique was used consistent with the principles of ALARA (as low as reasonably achievable). COMPARISON: 08/07/2017. CT DOSE (mGy.cm): The estimated cumulative dose is 537.48 mGy.cm. FINDINGS: Ski Lift Operator topogram: Unremarkable. Proportional ventricular and sulcal prominence, likely age-related parenchymal volume loss. Periventricular and subcortical white matter hypoattenuation, nonspecific but likely indicative of chronic small vessel ischemic change. No mass effect or midline shift. No hemorrhage or acute territorial infarct. No extra-axial fluid collection. Paranasal sinuses and mastoid air cells clear. Calvarium intact. Focus of gas noted in the subcutaneous tissue of the right temporal region, likely intravascular and related to injection. IMPRESSION: 1. Chronic small vessel ischemic change. No acute intracranial abnormality. Electronically signed by: Ez Salazar M.D. 10/10/2017 11:02 AM Dictated Date/Time: 10/10/2017 10:59 AM
[2017-10-10] MEDS ORDERED: SODIUM CHLORIDE 0.9% 500ML 500 ML IV STA (11:31)
[2017-10-10] MEDS ORDERED: APIXABAN 2.5 MG TAB PO STA (12:57)
[2017-10-10] MEDS ORDERED: AMIODARONE 200 MG TAB PO ONE (13:15)
[2017-10-10 13:45] VITALS: BP 135/78; PULSE 70; O2SAT 98
== END 2017-10-10 13:55 | disposition home or self-care (01) ==
LOC: C.EDB 09:39
DX: E86.0 Dehydration (principal); R42 Dizziness and giddiness; N18.9 Chronic kidney disease, unspecified; R79.89 Other specified abnormal findings of blood chemistry; I48.91 Unspecified atrial fibrillation; I48.92 Unspecified atrial flutter; Z95.0 Presence of cardiac pacemaker; E10.42 Type 1 diabetes mellitus with diabetic polyneuropathy; E10.22 Type 1 diabetes mellitus with diabetic chronic kidney disease; I12.9 Hypertensive chronic kidney disease with stage 1 through stage 4 chronic kidney disease, or unspecified chronic kidney disease; Z79.4 Long term (current) use of insulin; Z79.01 Long term (current) use of anticoagulants; Z79.899 Other long term (current) drug therapy; Z88.8 Allergy status to other drugs, medicaments and biological substances; Z82.49 Family history of ischemic heart disease and other diseases of the circulatory system

== ENCOUNTER → 2017-10-10 | Day surgery (SDC) | payer OTHER, BC ==
[~2017-10-10] VITALS: Ht 177.8 cm; Wt 91.0 kg
[~2017-10-10] MED LIST changes: +AMLO2.5T PO; +FERR1TAB23 PO; +FRS/40 PO; +LIDOCAINE HCL 2% 2 ML VIAL (20MG/ML) ONE; +NTRGSL/4 UT; +PROPOFOL IV EMULSION 10 MG/ML 20 ML VIAL ONE
[2017-10-10 06:59] VITALS: BP 91/47; PULSE 70; TEMP 36.7; O2SAT 100; Ht 177.8 cm; Wt 91.0 kg
[2017-10-10 07:30] VITALS: BP 127/80; PULSE 70; O2SAT 95
== END | disposition home or self-care (01) ==
LOC: C.CATH 06:40
PROVIDERS: ATTEND Internal Medicine Cardiovascular Disease
DX: I48.0 Paroxysmal atrial fibrillation (principal); Z53.9 Procedure and treatment not carried out, unspecified reason; I25.10 Atherosclerotic heart disease of native coronary artery without angina pectoris; N18.3 Chronic kidney disease, stage 3 (moderate); Z95.0 Presence of cardiac pacemaker; Z95.3 Presence of xenogenic heart valve

== ENCOUNTER → 2017-10-15 | Outpatient (CLI) | payer OTHER, BC ==
--- NOTE | 2017-10-15 13:36 | DIAGNOSTIC IMAGING REPORT ---
R LOWER EXTREMITY WITHOUT HISTORY: 72 years-old Male R/O OSTEOMYELITIS, RT 2ND METATARSAL acute pain and swelling of the second digit with history of diabetes and chronic renal failure. Concern for myelitis of the second metatarsal. COMPARISON: None available TECHNIQUE: Multiple axial CT images of the right foot were obtained without the use of IV contrast. Coronal and sagittal reformatted images were obtained from the axial data set and were submitted for review. A dose lowering technique was used consistent with the principals of CHARLES. FINDINGS: Demineralized appearance of the bones. No osteochondral defect of the talar dome. Os trigonum. No acute fracture or dislocation identified. Corticated bone fragments are seen adjacent to the anterior process calcaneus measuring up to 8 mm suggesting sequela of remote fracture. Severe joint space narrowing with prominent marginal spurring and subcortical cystic changes/erosions are noted involving the tarsometatarsal joints with relative sparing of the first tarsometatarsal joint. Corticated bone fragments are also noted within these distributions. Moderate osteoarthritis about the first MTP joint with marginal erosions about the medial aspect of the first metatarsal head. Subchondral erosions/cystic changes are also noted within the second metatarsal phalangeal joint with mild lateral subluxation and apex medial angulation. Subluxation with remodeling changes are also noted involving the second PIP joint with the middle phalanx subluxed volarly (image 44 series 301). No definite evidence of acute osteomyelitis. Postoperative changes from prior resection of the third digit at the level of the metatarsal phalangeal joint. Only the fourth proximal phalanx is seen with the middle and distal phalanges absent. Severe atrophy involves the intrinsic musculature about the foot. Peripheral arterial calcifications are noted throughout. Mild subcutaneous edema without drainable fluid collection. Thickening of the Proteus longus tendon suggests tendinosis. Enthesophytes noted at the Achilles calcaneus. IMPRESSION: 1. No acute fracture or dislocation. 2. Severe joint space narrowing with subchondral cystic changes, subchondral erosive changes with periarticular bony debris about the midfoot and forefoot as above suggesting combination of osteoarthritis with Charcot neuropathy. 3. Severe atrophy of the intrinsic musculature of the foot suggests chronic denervation changes associated with long-standing diabetes mellitus. 4. Deformity of the second digit as above without definite evidence of acute osteomyelitis. 5. Peripheral arterial disease. 6. Additional findings as above. The above report was generated using voice recognition software. It may contain grammatical, syntax or spelling errors. Electronically signed by: Ranjit Boothe M.D. 10/15/2017 1:35 PM Dictated Date/Time: 10/15/2017 1:24 PM
== END | disposition home or self-care (01) ==
LOC: C.CTS 12:57
PROVIDERS: ATTEND Podiatrist Foot & Ankle Surgery
DX: M85.671 Other cyst of bone, right ankle and foot (principal); M62.571 Muscle wasting and atrophy, not elsewhere classified, right ankle and foot; M20.61 Acquired deformities of toe(s), unspecified, right foot; L97.413 Non-pressure chronic ulcer of right heel and midfoot with necrosis of muscle

== ENCOUNTER 2018-06-18 10:15 | Inpatient (IN) ==
[2018-06-18] MEDS ORDERED: ALBUT/IPRATROP 3MG/0.5MG NEB 3 ML VIAL NEB STA ×2 (10:58→14:40)
[2018-06-18 11:55] LABS: Basophils # (auto) 0.03 K/uL (0-0.2); Basophils % (auto) 0.3 %; Eosinophils # (auto) 0.13 K/uL (0-0.5); Eosinophils % (auto) 1.4 %; Hematocrit (blood only) 32.9 % (42-52); Hemoglobin 10.7 g/dL (14.0-18.0); Immature Granulocytes # (auto) 0.02 K/uL (0.00-0.02); Immature Granulocytes % (auto) 0.2 %; Lymphocytes # (auto) 0.44 K/uL (1.2-3.4); Lymphocytes % (auto) 4.9 %; Mean Corpuscular Hgb Conc 32.5 g/dL (32-36); Mean Corpuscular Volume 89.9 fL (80-100); Monocytes # (auto) 1.29 K/uL (0.11-0.59); Monocytes % (auto) 14.3 %; Neutrophils # (auto) 7.14 K/uL (1.4-6.5); Neutrophils % (auto) 78.9 %; Platelet Count 153 K/uL (130-400); RDW Coefficient of Variation 15.1 % (11.5-14.5); RDW Standard Deviation 50.4 fL (36.4-46.3); Red Blood Count 3.66 M/uL (4.7-6.1); White Blood Count 9.05 K/uL (4.8-10.8)
--- NOTE | 2018-06-18 11:55 | XRay Report ---
XR chest 1V portable CLINICAL HISTORY: 73 years-old Male presenting with cough, fever. TECHNIQUE: Portable upright AP view of the chest was obtained. COMPARISON: 10/10/2017. FINDINGS: Left subclavian pacer with leads to the right atrium and right ventricular apex. Median sternotomy wi res and mediastinal surgical clips. Atherosclerosis of aortic arch. Cardiac silhouette mildly enlarge d. Elevation of the left hemidiaphragm, unchanged. Masses likely on a postsurgical basis. Chronic lef t pleural thickening. Bandlike opacities in the left mid to lower lung unchanged. No new focal opacit y. Right pleural space clear. Degenerative changes of the thoracic spine. Few surgical clips project over the epigastrium. IMPRESSION: 1. Chronic postsurgical changes of the left hemithorax. No superimposed infiltrate to suggest acute cardiopulmonary disease. Electronically signed by: Ez Salazar M.D. 06/18/2018 11:53 AM
--- NOTE | 2018-06-18 11:56 | Emergency Department Note ---
History of Present Illness General Chief complaint: Flu Like Symptoms Stated complaint: COUGH Time Seen by Provider: 06/18/18 10:47 History of Present Illness This is a 73-year-old male that presents to the emergency department via private vehicle with complaints of "cough". The patient notes that he has been experiencing cough, congestion, fevers and chills for 1 week. He also notes associated shortness of breath but no chest pain thus far. He notes associated fever that began today. He has tried Mucinex without relief. The cough was initially nonproductive but now is productive of large amounts of darker sputum. He notes that the cough became noticeable Friday evening and has worsened. He also has associated body aches. He notes a significant heart history. He takes Eliquis as well as Plavix. Home Medications Home Medications Medication Instructions Recorded Confirmed Type amlodipine 2.5 mg tablet 2.5 mg PO DAILY 04/07/18 06/18/18 History apixaban 5 mg tablet 5 mg PO BID 04/07/18 06/18/18 History atorvastatin 80 mg tablet 80 mg PO QPM 04/07/18 06/18/18 History calcitriol 0.5 mcg capsule 0.5 mcg PO DAILY 04/07/18 06/18/18 History cholecalciferol (vitamin D3) 2,000 2,000 units PO DAILY 04/07/18 06/18/18 History unit capsule clopidogrel 75 mg tablet 75 mg PO QPM tab 04/07/18 06/18/18 History cyanocobalamin (vitamin B-12) 1,000 mcg PO DAILY 04/07/18 06/18/18 History 1,000 mcg capsule ferrous sulfate 325 mg (65 mg 325 mg PO DAILY tab 04/07/18 06/18/18 History iron) tablet folic acid 1 mg tablet 1 mg PO DAILY 04/07/18 06/18/18 History furosemide 40 mg tablet 40 mg PO DAILY 04/07/18 06/18/18 History levothyroxine 112 mcg capsule 112 mcg PO DAILY 04/07/18 06/18/18 History magnesium oxide 400 mg capsule 400 mg PO DAILY cap 04/07/18 06/18/18 History nebivolol 5 mg tablet 0 mg PO DIRECTED PRN tab 04/07/18 05/05/18 History nitroglycerin 0.4 mg sublingual 0.4 mg SL Q5M PRN 04/07/18 06/18/18 History tablet pantoprazole 40 mg tablet,delayed 40 mg PO DAILY 04/07/18 06/18/18 History release vitamin B complex and vitamin C 1 cap PO DAILY 04/07/18 06/18/18 History no.20-folic acid 1 mg capsule insulin lispro [Humalog U-100 1 sliding scale dose SUBCUT UD 06/18/18 06/18/18 History Insulin] vitamins A,C,R-pudj-dgekba 1 tab PO BID 06/18/18 06/18/18 History [PreserVision AREDS] Allergies Allergy/AdvReac Type Severity Reaction Status Date / Time No Known Allergies Allergy Verified 06/18/18 11:02 Past Med/Surg History Medical History Diabetes (Chronic) Heart disease (Chronic) Hypertension (Chronic) Kidney failure (Chronic) Stomach problems (Chronic) Kidney stones (Resolved) Basal cell carcinoma of left forehead (Resolved) Chronic kidney disease (Chronic) Anemia (Chronic) Renal tubular acidosis, type 4 (Chronic) Atrial flutter (Resolved 04/03/14) Diabetic foot ulcer associated with type 1 diabetes mellitus (Acute) Foot deformity (Chronic) Pacemaker (Chronic) Diabetic peripheral neuropathy associated with type 1 diabetes mellitus (Chronic ) History of diabetic ulcer of foot (Chronic) Hypothyroidism (Acute) Surgical History Aortic valve replaced (Chronic) Hx of CABG (Resolved) History of artificial heart valve (Resolved 04/03/14) Social History Current Living Situation: Spouse Other Information That Helps Us Care for You: No Feels Safe at Home: Yes Safety Concerns: Feels Safe At This Time Smoking Status: Never smoker Second Hand Exposure: No Hx Alcohol Use: No Hx Substance Use: No Beliefs That Will Affect Care: None Preferred Language: Greenlandic Communication Ability: Effective Drywall Hanger Required: No Review of Systems A total of 10 systems reviewed and were otherwise negative Physical Exam Vital Signs Vital Signs - 24 hr 06/18/18 10:29 06/18/18 11:55 06/18/18 12:33 Temperature 37.8 C H Temperature Source Oral Sepsis Recent Fever Within 48 Hours No Sepsis New/Unexplained Change in Mental Status No Sepsis Action Taken by Nursing No Action Required Pulse Rate 74 83 Pulse Rate [Left] 102 H Pulse Rhythm [Left] Pulse Strength [Left] Respiratory Rate 20 20 20 Respiratory Effort / Characteristics Non-Labored Spontaneous Respiratory Depth Normal Respiratory Pattern Regular Blood Pressure 131/69 Blood Pressure [Right Arm] 169/102 H Blood Pressure Mean 89 Blood Pressure Mean [Right Arm] 124 Blood Pressure Position [Right Arm] Pulse Oximetry 99 100 98 Oxygen Delivery Method Room Air Room Air Room Air Oxygen Flow Rate 06/18/18 12:51 06/18/18 13:19 06/18/18 15:16 Temperature Temperature Source Sepsis Recent Fever Within 48 Hours Sepsis New/Unexplained Change in Mental Status Sepsis Action Taken by Nursing Pulse Rate 105 H Pulse Rate [Left] 98 H 98 H Pulse Rhythm [Left] Pulse Strength [Left] Respiratory Rate 20 20 20 Respiratory Effort / Characteristics Respiratory Depth Respiratory Pattern Blood Pressure Blood Pressure [Right Arm] 160/94 H 157/91 H Blood Pressure Mean Blood Pressure Mean [Right Arm] 116 113 Blood Pressure Position [Right Arm] Pulse Oximetry 98 97 98 Oxygen Delivery Method Room Air Room Air Room Air Oxygen Flow Rate 06/18/18 15:19 06/18/18 15:30 06/18/18 15:32 Temperature Temperature Source Sepsis Recent Fever Within 48 Hours Sepsis New/Unexplained Change in Mental Status Sepsis Action Taken by Nursing Pulse Rate 103 H 104 H Pulse Rate [Left] 97 H Pulse Rhythm [Left] Regular Pulse Strength [Left] Normal Respiratory Rate 20 28 H 35 H Respiratory Effort / Characteristics Non-Labored Spontaneous Respiratory Depth Normal Respiratory Pattern Regular Blood Pressure 161/102 H Blood Pressure [Right Arm] 91/62 L Blood Pressure Mean 121 Blood Pressure Mean [Right Arm] 71 Blood Pressure Position [Right Arm] Lying Pulse Oximetry 94 96 96 Oxygen Delivery Method Room Air Room Air Room Air Oxygen Flow Rate 06/18/18 16:00 06/18/18 16:01 06/18/18 16:19 Temperature Temperature Source Sepsis Recent Fever Within 48 Hours Sepsis New/Unexplained Change in Mental Status Sepsis Action Taken by Nursing Pulse Rate 124 H 122 H 126 H Pulse Rate [Left] Pulse Rhythm [Left] Pulse Strength [Left] Respiratory Rate 22 27 H 26 H Respiratory Effort / Characteristics Respiratory Depth Respiratory Pattern Blood Pressure 114/67 112/78 Blood Pressure [Right Arm] Blood Pressure Mean 82 89 Blood Pressure Mean [Right Arm] Blood Pressure Position [Right Arm] Pulse Oximetry 98 98 98 Oxygen Delivery Method Room Air Room Air Room Air Oxygen Flow Rate 06/18/18 16:30 06/18/18 17:00 06/18/18 17:05 Temperature Temperature Source Sepsis Recent Fever Within 48 Hours Sepsis New/Unexplained Change in Mental Status Sepsis Action Taken by Nursing Pulse Rate 126 H 121 H 118 H Pulse Rate [Left] Pulse Rhythm [Left] Pulse Strength [Left] Respiratory Rate 17 13 32 H Respiratory Effort / Characteristics Respiratory Depth Respiratory Pattern Blood Pressure 111/61 Blood Pressure [Right Arm] Blood Pressure Mean 77 Blood Pressure Mean [Right Arm] Blood Pressure Position [Right Arm] Pulse Oximetry 98 Oxygen Delivery Method Nasal Cannula Oxygen Flow Rate 06/18/18 17:30 06/18/18 18:00 06/18/18 18:06 Temperature Temperature Source Sepsis Recent Fever Within 48 Hours Sepsis New/Unexplained Change in Mental Status Sepsis Action Taken by Nursing Pulse Rate 111 H 110 H 108 H Pulse Rate [Left] Pulse Rhythm [Left] Pulse Strength [Left] Respiratory Rate 21 23 28 H Respiratory Effort / Characteristics Respiratory Depth Respiratory Pattern Blood Pressure 139/68 132/68 113/65 Blood Pressure [Right Arm] Blood Pressure Mean 91 89 81 Blood Pressure Mean [Right Arm] Blood Pressure Position [Right Arm] Pulse Oximetry 100 98 99 Oxygen Delivery Method Nasal Cannula Nasal Cannula Nasal Cannula Oxygen Flow Rate 2 2 2 06/18/18 18:30 06/18/18 19:00 06/18/18 19:39 Temperature 37.1 C Temperature Source Oral Sepsis Recent Fever Within 48 Hours Sepsis New/Unexplained Change in Mental Status Sepsis Action Taken by Nursing Pulse Rate 107 H 103 H Pulse Rate [Left] 103 H Pulse Rhythm [Left] Pulse Strength [Left] Respiratory Rate 23 17 18 Respiratory Effort / Characteristics Non-Labored Respiratory Depth Normal Respiratory Pattern Regular Blood Pressure 134/71 131/69 Blood Pressure [Right Arm] 135/73 Blood Pressure Mean 92 89 Blood Pressure Mean [Right Arm] 93 Blood Pressure Position [Right Arm] Lying Pulse Oximetry 98 98 99 Oxygen Delivery Method Nasal Cannula Nasal Cannula Nasal Cannula Oxygen Flow Rate 2 2 2 VITAL SIGNS - Vital signs and nursing notes were reviewed. Febrile, otherwise stable. GENERAL -73-year-old male appearing his stated age who is in no acute distress. Communicates well with provider and answers questions appropriately. SKIN - Without rashes. No meningeal or petechial rash. HEAD - NC/AT. EYES - PERRL with EOMI bilaterally. Sclera anicteric. EARS - No deformities of external structures noted on gross examination bilaterally. NOSE - Midline and without cyanosis. No epistaxis or purulent drainage noted. MOUTH/OROPHARYNX - Without perioral cyanosis. NECK - Neck with FROM. Supple to palpation. No nuchal rigidity. LUNGS - Chest wall symmetric without accessory muscle use, intercostals retractions, or central cyanosis. There is wheezing and coarse breath sounds noted bilaterally. CARDIAC -regular rate noted with systolic murmur noted compatible with heart valve. ABDOMEN - Abdominal contour normal without pulsations or visible masses. BS normoactive all four quadrants. No tenderness, palpable masses, hepatosplenomegaly, or ascites noted. EXTREMITIES - No clubbing or peripheral cyanosis. +5/5 strength noted in UE/LE bilaterally. NEUROLOGIC - Cranial nerves II through XII grossly intact. Sensory intact to light touch throughout. PSYCH - A&Ox3 and cooperates fully with examiner. Pt is very pleasant and interacts well with examiner. Course Administered Medications Morphine Sulfate (Morphine Sulfate) 2 mg IV Q30M PRN PRN Reason: Pain Stop: 07/02/18 18:14 Last Admin: 06/18/18 18:13 Dose: 2 mg Discontinued Medications Acetaminophen (Tylenol) 500 mg PO NOW STA Stop: 06/18/18 12:58 Last Admin: 06/18/18 13:16 Dose: Not Given Albuterol (Duoneb) 3 ml NEB NOW STA Stop: 06/18/18 10:59 Last Admin: 06/18/18 11:44 Dose: 3 ml Albuterol (Duoneb) 3 ml NEB NOW STA Stop: 06/18/18 14:41 Last Admin: 06/18/18 15:10 Dose: 3 ml Aspirin (Aspirin) 324 mg PO NOW STA Stop: 06/18/18 16:22 Last Admin: 06/18/18 16:35 Dose: Not Given Aspirin (Aspirin Chew) Confirm Administered Dose 324 mg .ROUTE .STK-MED ONE Stop: 06/18/18 16:23 Last Admin: 06/18/18 16:35 Dose: 324 mg Sodium Chloride (Nss) 500 mls @ 125 mls/hr IV .Q4H STA Stop: 06/18/18 16:56 Last Infusion: 06/18/18 17:18 Dose: 0 mls/hr Admin: 06/18/18 13:18 Dose: 125 mls/hr Doxycycline Hyclate 100 mg/ (Dextrose) 110 mls @ 50 mls/hr IV NOW STA Stop: 06/18/18 16:57 Last Infusion: 06/18/18 17:21 Dose: 0 mls/hr Admin: 06/18/18 15:09 Dose: 50 mls/hr Methylprednisolone (Solumedrol) 60 mg IV NOW STA Stop: 06/18/18 14:41 Last Admin: 06/18/18 15:09 Dose: 60 mg Nitroglycerin (Nitro-Bid 2%) 0.5 inch EXT NOW STA Stop: 06/18/18 12:40 Last Admin: 06/18/18 12:49 Dose: 0.5 inch Nitroglycerin (Nitrostat) 0.4 mg SL NOW STA Stop: 06/18/18 16:22 Last Admin: 06/18/18 16:35 Dose: 0.4 mg Medical Decision Making Laboratory Data Result diagrams: 06/18/18 10:31 06/18/18 10:31 Lab Results 06/18/18 06/18/18 06/18/18 Range/Units 10:31 10:31 11:18 WBC 9.05 (4.8-10.8) K/uL RBC 3.66 L (4.7-6.1) M/uL Hgb 10.7 L (14.0-18.0) g/dL Hct 32.9 L (42-52) % MCV 89.9 (80-100) fL MCH 29.2 (25-34) pg MCHC 32.5 (32-36) g/dL RDW Std Deviation 50.4 H (36.4-46.3) fL RDW Coeff of Seferino 15.1 H (11.5-14.5) % Plt Count 153 (130-400) K/uL MPV 9.0 (7.4-10.4) fL Immature Gran % (Auto) 0.2 % Neut % (Auto) 78.9 % Lymph % (Auto) 4.9 % [place] % (Auto) 14.3 % Eos % (Auto) 1.4 % Baso % (Auto) 0.3 % Immature Gran # (Auto) 0.02 (0.00-0.02) K/uL Neut # (Auto) 7.14 H (1.4-6.5) K/uL Lymph # (Auto) 0.44 L (1.2-3.4) K/uL Summit # (Auto) 1.29 H (0.11-0.59) K/uL Eos # (Auto) 0.13 (0-0.5) K/uL Baso # (Auto) 0.03 (0-0.2) K/uL Sodium 139 (136-145) mmol/L Potassium 5.0 (3.5-5.1) mmol/L Chloride 108 H (98-107) mmol/L Carbon Dioxide 22 (21-32) mmol/L Anion Gap 9.0 (3-11) BUN 43 H (7-18) mg/dl Creatinine 2.15 H (0.6-1.4) mg/dl Est Cr Clr Drug Dosing Not Reportable Est GFR ( Amer) 33.7 Est GFR (Non-Af Amer) 29.1 BUN/Creatinine Ratio 19.9 (10-20) Glucose 107 H (70-99) mg/dl POC Glucose (70-99) Calcium 9.0 (8.5-10.1) mg/dl Magnesium 1.9 (1.8-2.4) mg/dl Total Bilirubin 1.1 H (0.2-1) mg/dl AST 24 (15-37) U/L ALT 30 (12-78) U/L Alkaline Phosphatase 190 H (45-117) U/L POC Troponin I (0-0.045) ng/ml Troponin I 0.015 (0-0.045) ng/ml Total Protein 7.5 (6.4-8.2) gm/dl Albumin 3.4 (3.4-5.0) gm/dl Globulin 4.1 H (2.5-4.0) gm/dl Albumin/Globulin Ratio 0.8 L (0.9-2) Influenza Type A Ag Neg for Influ A (Neg) Influenza Type A (PCR) (Neg) Influenza Type B Ag Neg for Influ B (Neg) Influenza Type B (PCR) (Neg) 06/18/18 06/18/18 06/18/18 Range/Units 11:18 16:37 20:03 WBC (4.8-10.8) K/uL RBC (4.7-6.1) M/uL Hgb (14.0-18.0) g/dL Hct (42-52) % MCV (80-100) fL MCH (25-34) pg MCHC (32-36) g/dL RDW Std Deviation (36.4-46.3) fL RDW Coeff of Seferino (11.5-14.5) % Plt Count (130-400) K/uL MPV (7.4-10.4) fL Immature Gran % (Auto) % Neut % (Auto) % Lymph % (Auto) % [place] % (Auto) % Eos % (Auto) % Baso % (Auto) % Immature Gran # (Auto) (0.00-0.02) K/uL Neut # (Auto) (1.4-6.5) K/uL Lymph # (Auto) (1.2-3.4) K/uL [place] # (Auto) (0.11-0.59) K/uL Eos # (Auto) (0-0.5) K/uL Baso # (Auto) (0-0.2) K/uL Sodium (136-145) mmol/L Potassium (3.5-5.1) mmol/L Chloride (98-107) mmol/L Carbon Dioxide (21-32) mmol/L Anion Gap (3-11) BUN (7-18) mg/dl Creatinine (0.6-1.4) mg/dl Est Cr Clr Drug Dosing Est GFR ( Amer) Est GFR (Non-Af Amer) BUN/Creatinine Ratio (10-20) Glucose (70-99) mg/dl POC Glucose 171 H (70-99) Calcium (8.5-10.1) mg/dl Magnesium (1.8-2.4) mg/dl Total Bilirubin (0.2-1) mg/dl AST (15-37) U/L ALT (12-78) U/L Alkaline Phosphatase (45-117) U/L POC Troponin I < 0.03 (0-0.045) ng/ml Troponin I (0-0.045) ng/ml Total Protein (6.4-8.2) gm/dl Albumin (3.4-5.0) gm/dl Globulin (2.5-4.0) gm/dl Albumin/Globulin Ratio (0.9-2) Influenza Type A Ag (Neg) Influenza Type A (PCR) Neg for Influ A (Neg) Influenza Type B Ag (Neg) Influenza Type B (PCR) Neg for Influ B (Neg) Imaging Data Radiologist's Impression: XR chest 1V portable CLINICAL HISTORY: 73 years-old Male presenting with cough, fever. TECHNIQUE: Portable upright AP view of the chest was obtained. COMPARISON: 10/10/2017. FINDINGS: Left subclavian pacer with leads to the right atrium and right ventricular apex. Median sternotomy wires and mediastinal surgical clips. Atherosclerosis of aortic arch. Cardiac silhouette mildly enlarged. Elevation of the left hemidiaphragm, unchanged. Masses likely on a postsurgical basis. Chronic left pleural thickening. Bandlike opacities in the left mid to lower lung unchanged. No new focal opacity. Right pleural space clear. Degenerative changes of the thoracic spine. Few surgical clips project over the epigastrium. IMPRESSION: 1. Chronic postsurgical changes of the left hemithorax. No superimposed infiltrate to suggest acute cardiopulmonary disease. Electronically signed by: Ez Salazar M.D. 06/18/2018 11:53 AM MDM Narrative Patient was seen and evaluated as above in room D9. Review was performed of nursing notes and vital signs. After obtaining a thorough history and physical examination the above work up was performed. He presents today with a cough, fever and flulike symptoms. He is nontoxic on examination and other than the fever presents with stable vital signs. Bedside EKG was performed and reveals a paced rhythm. No evidence of OK on that examination. He was given a DuoNeb and had marked improvement of his symptoms. Chest x-ray reveals no acute process. Results as above. White blood cell count normal. Hemoglobin low at 10.7. No metabolic emergency. Creatinine and BUN are stable compared to previous. Troponin negative. Influenza negative. Throughout the patient's stay he was doing well but did develop chest pain. He was given a small amount of Nitropaste with alleviation of his pain. With the patient's extensive cardiac history, risk factors, chest pain and presentation today do believe that further evaluation and management in the inpatient setting is warranted. I did discuss this with the attending physician who also evaluated the patient. We discussed the addition of adding doxycycline for infectious coverage, steroids for the breathing and breathing treatment. I then discussed this with the hospitalist, Dr. Cervantes. I then added a PCR influenza, and IV doxycycline. It was about 10 minutes after the patient had received the DuoNeb that I was called to the room as he had a crushing substernal chest pain. An EKG was obtained. I did discuss this with the attending physician, noting that at the time it was after shift change and Dr. Arboleda was present. He came to bedside. Aspirin and nitroglycerin sublingual were provided. It was felt that there was concerning change in leads V4 and V5 with depression. He recommended a heart alert be called given the patient's amount of chest pain, medical history and EKG changes. The interventionalist came to bedside. At this time it was recommended to refrain from cardiac catheterization given the patient specific scenario, however notes that if the patient symptoms change it may certainly be reevaluated and warranted. As the patient was being prepared to be taken upstairs he noted persistent chest pain which was beginning to worsen. Initially his blood pressure could have supported something such as Lopressor as I did discuss this with the hospitalist, however upon recheck it was found to be at the lower limits of normal and this was canceled. 2 mg of morphine IV was provided. This was ordered every 30 minutes as needed pain. Patient was reevaluated and beginning to feel better. He was taken upstairs for admission to receive further evaluation and management. Please refer to further documentation regarding his stay. Case was discussed with the attending physician. Each of the 3 EKGs revealed a ventricular paced rhythm. The third EKG that was performed appears to have more pronounced depression than the prior to in leads V4 and V5 I attest that I have personally reviewed the patient medication list. I attest that I have reviewed the patient's blood pressure and it was found to be elevated upon presentation secondary to symptoms. In the evaluation and treatment of this patient, the following differential diagnoses were considered: OK, ASC, Dysrhythmia, Angina, Mediastinitis, GERD, Esophagitis, PE, Pneumonia, Bronchitis, Costochondritis, Rib Fracture, Zoster. Impression & Plan Fever, Chest pain, Flu-like symptoms, Cough Discharge Plan Visit Data *Final* Discharge Date/Time: 06/18/18 19:08 Chief Complaint: Flu Like Symptoms Stated Complaint: COUGH ED Provider: Breanne Humphries ED Midlevel Provider: John Yo Discharge Problem: Fever, Chest pain, Flu-like symptoms, Cough Patient Disposition: Still a Patient Discharge Instructions Interventions: ED Discharge Assessment Last Done: 06/18/18 19:08
[2018-06-18 12:14] LABS: Alanine Aminotransferase 30 U/L (12-78); Albumin Level 3.4 gm/dl (3.4-5.0); Aspartate Aminotransferase 24 U/L (15-37); BUN Creatinine Ratio 19.9 (10-20); Blood Urea Nitrogen 43 mg/dl (7-18); Carbon Dioxide 22 mmol/L (21-32); Chloride 108 mmol/L (98-107); Est GFR (African American) 33.7; Est GFR (Non-African American) 29.1; Glucose 107 mg/dl (70-99); Magnesium 1.9 mg/dl (1.8-2.4); Sodium 139 mmol/L (136-145)
[2018-06-18 12:18] LABS: Albumin Globulin Ratio 0.8 (0.9-2); Alkaline Phosphatase 190 U/L (45-117); Bilirubin,Total 1.1 mg/dl (0.2-1); Globulin 4.1 gm/dl (2.5-4.0); Total Protein 7.5 gm/dl (6.4-8.2); Troponin I 0.015 ng/ml (0-0.045)
[2018-06-18] MEDS ORDERED: NITROGLYCERIN 2% OINTMENT 30GM TUBE EXT STA (12:39)
[2018-06-18] MEDS ORDERED: ACETAMINOPHEN 500 MG TAB PO STA (12:57)
[2018-06-18] MEDS ORDERED: SODIUM CHLORIDE 0.9% 500 ML IV STA (12:57)
[2018-06-18] MEDS ORDERED: methylPREDNISolone 125 MG/2 ML VIAL IV STA (14:40)
[2018-06-18] MEDS ORDERED: DOXYCYCLINE HYCLATE 100 MG in DEXTROSE 5% 100 ML IV STA (14:46)
--- NOTE | 2018-06-18 15:44 | Emergency Department Note ---
ED Visit Note I have personally seen and evaluated the patient with the PA. I agree with the diagnosis and management decisions and have been personally involved in the case. Please see John Yo PA-C's notes for further details of the history, physical and visit. .
[2018-06-18 15:58] LABS: Influenza A virus by PCR Neg for Influ A (Neg); Influenza B virus by PCR Neg for Influ B (Neg)
--- NOTE | 2018-06-18 16:15 | History & Physical Report ---
Date of Service June 18, 2018 Assessment & Plan (1) Fever and chills: Mr. Blake is a 73yo M with a PMHx of T1DM with neuropathy/retinopathy/ foot ulceration, HTN, CKD, Aflutter w/ pacer, CABG x3 in 1993, and AVR 2012 who presents with cough, fever, and chills worsening over one week. Fever/Chills - Influzena rapid negative, influenze PCR negative. Prodrome of 4-5 days. - 37.8*C without leukocytosis in ED - CXR shows no acute disease - APAP 650mg Q6H for fever, discomfort - No signs of bacterial infection, no role for abx at this time Chest Pain - Mild chest tightness on admit, developed crushing chest pain and ST depressions following DuoNeb. Last cath reviewed by cards, small vessel disease not amenable to stenting. LIkely has demand ischemia in the setting of acute illness worsened by the duoneb. Improving with nitro, anticoagulated with apixaban and on clopigrel at baseline., no repeat cath at this time per cards. - Trop 0.015, repeat ordered and trend Q6 x2. - ECHO 02/2018: LVEF 50-55% grade II diastolic dysfunction, LV function normal. Mild concentric LVH. - Nitro SL PRN, Metoprolol as below T1DM with peripheral neuropathy - Last A1C 7.3 in February 2018. - Repeat A1C - Continue pt driven insulin pump control. If he did not maintain good glycemic control will convert to hospital direct insulin therapy. - Glucose checks AC/HS - BMP daily Atrial Flutter - Amlodipine 2.5mg daily - Hold DIRECTOR PRODUCT nebivolol - Apixaban 5mg BID Chronic Kidney Disease, Stage 3 (baseline Cr ~2.1, eGFR 29.1) - Lasix 40mg daily - Renally dose medications - Avoid nephrotoxins - BMP,Cr daily Tachycardia - Metoprolol succinate as below - Metoprolol tartrate 5mg IV PRN Hypertension - Amlodipine as above - Not on an LINDA/ARB DIRECTOR PRODUCT, consider addition for renoprotection Bronchitis - Avoid albuterol given increased cardiac demand and onset of chest pain as above - Methylprednisolone x5 days - Ipratropium inh Q6-Q8H PRN - CXR clear, no signs of bacterial infection. No antibiotics indicated at this time. History of CABGx3 (1993) - Continue Atorvastatin 80mg daily - Clopidogrel 75 for AVR as noted below - Metoprolol Succinate 25mg PO BID Aortic Valve Replacement (2013) - Clopidogrel 75mg daily Hypothyroidism - DIRECTOR PRODUCT levothyroxine 112mcg daily DVT Prophylaxsis: Apixaban 2.5mg BID IVFM: HNS 75cc/hr Code: Status Full (2) Chest pain: (3) Diabetic peripheral neuropathy associated with type 1 diabetes mellitus: (4) Atrial flutter: (5) Hx of CABG: (6) Aortic valve replaced: (7) Diabetic foot ulcer associated with type 1 diabetes mellitus: (8) Chronic kidney disease: (9) Hypertension: History of Present Illness Primary Care Provider: Jamar Solo III, Talon is a 73-year-old male with a past medical history of diabetes mellitus, hypertension, chronic kidney disease, atrial flutter status post pacemaker placement, CABG x3 in 1993, AVR in 2012, Who presents with several days of chills, sinus congestion, cough, weakness, and feelings of malaise. He reports his symptoms began this past Friday over the weekend. Symptoms began with sinus drainage, cough, and sputum production. He feels that his symptoms gradually worsened and he began to develop chills and night sweats in the past few days. He knows he would have come to the hospital yesterday, but could not due to icy weather. He endorses a decreased appetite but denies nausea, vomiting, diarrhea, constipation. Decreased p.o. intake overall. He has also developed a persistent headache at the base of his neck, achy in quality and worse when he coughs. No photosensitivity, photosensitivity, rash. He endorses a feeling of chest tightness bilaterally across the top of his chest which disappeared when he got to the ED. Denies arm pain. Denies feelings of chest pain or chest pressure. Endorses shortness of breath when coughing and mild difficulty breathing due to congestion, but no shortness of breath at rest. He notes his cough is constant and seems to be worsening, occasional sputum production greenish. He was diagnosed with diabetes in his 30s, has been told he is a type I rather than type II diabetic and is managed with an insulin pump and continuous glucose monitoring. He is followed by Dr. Hurtado. He was originally diagnosed with diabetes in his 30s, and has had multiple complications including diabetic retinopathy with macular edema, neuropathy, nephropathy, coronary artery disease , peripheral artery disease, and carotid stenosis. He underwent gastric bypass in 1999 secondary to increasing insulin resistance with an element of lipohypertrophy. He has some swelling in his legs at baseline, feels he is not holding extra fluid currently and that they are at her normal baseline today. Notes that the right leg tends to be a little bit more swollen than the left since they took his right saphenous for his bypass surgery. No history of repeated infections. No known drug allergies. No known food allergies. Family history: No family history of repeat infections or immunosuppression Family history of type 2 diabetes in his mother Family history of coronary artery disease in his mother and father. His father from [place]. No history of strokes, clotting disorders, or bleeding disorders Social: Tobacco: No current or former use EtOH: No current use Recreational drug use: None He lives in [facility] with his and dog. Normally has no problems with ambulation, and has had no recent falls. Allergies Allergy/AdvReac Type Severity Reaction Status Date / Time No Known Allergies Allergy Verified 06/18/18 11:02 Home Medications Home Medications Medication Instructions Recorded Confirmed Type amlodipine 2.5 mg tablet 2.5 mg PO DAILY 04/07/18 06/18/18 History apixaban 5 mg tablet 5 mg PO BID 04/07/18 06/18/18 History atorvastatin 80 mg tablet 80 mg PO QPM 04/07/18 06/18/18 History calcitriol 0.5 mcg capsule 0.5 mcg PO DAILY 04/07/18 06/18/18 History cholecalciferol (vitamin D3) 2,000 2,000 units PO DAILY 04/07/18 06/18/18 History unit capsule clopidogrel 75 mg tablet 75 mg PO QPM tab 04/07/18 06/18/18 History cyanocobalamin (vitamin B-12) 1,000 mcg PO DAILY 04/07/18 06/18/18 History 1,000 mcg capsule ferrous sulfate 325 mg (65 mg 325 mg PO DAILY tab 04/07/18 06/18/18 History iron) tablet folic acid 1 mg tablet 1 mg PO DAILY 04/07/18 06/18/18 History furosemide 40 mg tablet 40 mg PO DAILY 04/07/18 06/18/18 History levothyroxine 112 mcg capsule 112 mcg PO DAILY 04/07/18 06/18/18 History magnesium oxide 400 mg capsule 400 mg PO DAILY cap 04/07/18 06/18/18 History nebivolol 5 mg tablet 0 mg PO DIRECTED PRN tab 04/07/18 05/05/18 History nitroglycerin 0.4 mg sublingual 0.4 mg SL Q5M PRN 04/07/18 06/18/18 History tablet pantoprazole 40 mg tablet,delayed 40 mg PO DAILY 04/07/18 06/18/18 History release vitamin B complex and vitamin C 1 cap PO DAILY 04/07/18 06/18/18 History no.20-folic acid 1 mg capsule insulin lispro [Humalog U-100 1 sliding scale dose SUBCUT UD 06/18/18 06/18/18 History Insulin] vitamins A,C,S-dptn-huvnjr 1 tab PO BID 06/18/18 06/18/18 History [PreserVision AREDS] Past Med/Surg History Medical History Diabetes (Chronic) Heart disease (Chronic) Hypertension (Chronic) Kidney failure (Chronic) Stomach problems (Chronic) Kidney stones (Resolved) Basal cell carcinoma of left forehead (Resolved) Chronic kidney disease (Chronic) Anemia (Chronic) Renal tubular acidosis, type 4 (Chronic) Atrial flutter (Resolved 04/03/14) Diabetic foot ulcer associated with type 1 diabetes mellitus (Acute) Foot deformity (Chronic) Pacemaker (Chronic) Diabetic peripheral neuropathy associated with type 1 diabetes mellitus (Chronic ) History of diabetic ulcer of foot (Chronic) Hypothyroidism (Acute) Surgical History Aortic valve replaced (Chronic) Hx of CABG (Resolved) History of artificial heart valve (Resolved 04/03/14) Social History Current Living Situation: Spouse Other Information That Helps Us Care for You: No Feels Safe at Home: Yes Safety Concerns: Feels Safe At This Time Smoking Status: Never smoker Second Hand Exposure: No Hx Alcohol Use: No Hx Substance Use: No Beliefs That Will Affect Care: None Preferred Language: Greenlandic Communication Ability: Effective Tv Production Assistant Required: No Review of Systems Constitutional: + fever, + chills, + sweats, + fatigue, + weakness and + anorexia Eyes: + photophobia; no blind spots, no diplopia and no worsening vision Ear, Nose, Mouth, Throat: no ear pain, no ear discharge, no tinnitus and no hearing loss Respiratory: + cough, + chest congestion, + change in sputum, + dyspnea, + dyspnea on exertion, + pain with cough and + sputum production Cardiovascular: + dyspnea, + palpitations and + edema (unchanged from baseline, R>L); no chest pain, no chest pain at rest, no chest pain with activity, no radiating jaw, neck or arm pain, no lightheadedness and no syncope Gastrointestinal: + problem reported (decreased appetite, decreased PO intake); no abdominal pain, no nausea, no vomiting, no constipation and no diarrhea/ loose stools Genitourinary (Male): no dysuria, no difficulty urinating, no penile discharge and no urinary urgency Musculoskeletal: + back pain, + neck pain and + stiffness Integumentary: no rash and no new lesions Neurologic: + generalized weakness, + tingling, + numbness and + headache(s); no confusion Physical Exam 2 Vital Signs (Past 24 Hours): Last Vital Signs Temp 37.8 C H 06/18/18 10:29 Pulse 97 H 06/18/18 15:19 Resp 20 06/18/18 15:19 BP 91/62 L 06/18/18 15:19 Pulse Ox 94 06/18/18 15:19 Physical Exam: General: A&Ox3. NAD. Cooperative. No rash appreciated. Head: Atraumatic, normocephalic. Extraocular movements intact without nystagmus. Pupils equal and reactive to light and accommodation bilaterally. No photosensitivity. Ears: Normal external ear anatomy. TM intact, without injection/fluid/effusion/ erythema bilaterally. Nose: Normal exterior nasal anatomy. Turbinates mildly inflamed, clear nasal discharge present. No sinus tenderness. Neck: No cervical or clavicular adenopathy appreciated. Neck is supple, no nuchal rigidity. Pulm: CTAB A&P. -wheezes, -rales, -rhonchi. Symmetrical chest rise. Labored breathing, but without respiratory distress. O2Sat 94% on room air with decrease to approximately 90% while talking. Cardiac: RRR, -mrg. Radial pulses intact and symmetrical. No JVD appreciated. Abdominal: Nontender, nondistended, soft. BS present. Extremities: 1+ edema to the midcalf bilaterally, more prominent on the right versus left. Chronic venous stasis changes bilaterally. PT pulses intact bilaterally. Results & Data Laboratory Results 06/18/18 06/18/18 06/18/18 Range/Units 11:18 11:18 10:31 WBC (4.8-10.8) K/uL RBC (4.7-6.1) M/uL Hgb (14.0-18.0) g/dL Hct (42-52) % MCV (80-100) fL MCH (25-34) pg MCHC (32-36) g/dL RDW Std Deviation (36.4-46.3) fL RDW Coeff of Seferino (11.5-14.5) % Plt Count (130-400) K/uL MPV (7.4-10.4) fL Immature Gran % (Auto) % Neut % (Auto) % Lymph % (Auto) % Lares % (Auto) % Eos % (Auto) % Baso % (Auto) % Immature Gran # (Auto) (0.00-0.02) K/uL Neut # (Auto) (1.4-6.5) K/uL Lymph # (Auto) (1.2-3.4) K/uL Lares # (Auto) (0.11-0.59) K/uL Eos # (Auto) (0-0.5) K/uL Baso # (Auto) (0-0.2) K/uL Sodium 139 (136-145) mmol/L Potassium 5.0 (3.5-5.1) mmol/L Chloride 108 H (98-107) mmol/L Carbon Dioxide 22 (21-32) mmol/L Anion Gap 9.0 (3-11) BUN 43 H (7-18) mg/dl Creatinine 2.15 H (0.6-1.4) mg/dl Est Cr Clr Drug Dosing Not Reportable Est GFR ( Amer) 33.7 Est GFR (Non-Af Amer) 29.1 BUN/Creatinine Ratio 19.9 (10-20) Glucose 107 H (70-99) mg/dl Calcium 9.0 (8.5-10.1) mg/dl Magnesium 1.9 (1.8-2.4) mg/dl Total Bilirubin 1.1 H (0.2-1) mg/dl AST 24 (15-37) U/L ALT 30 (12-78) U/L Alkaline Phosphatase 190 H (45-117) U/L Troponin I 0.015 (0-0.045) ng/ml Total Protein 7.5 (6.4-8.2) gm/dl Albumin 3.4 (3.4-5.0) gm/dl Globulin 4.1 H (2.5-4.0) gm/dl Albumin/Globulin Ratio 0.8 L (0.9-2) Influenza Type A Ag Neg for Influ A (Neg) Influenza Type A (PCR) Neg for Influ A (Neg) Influenza Type B Ag Neg for Influ B (Neg) Influenza Type B (PCR) Neg for Influ B (Neg) 06/18/18 Range/Units 10:31 WBC 9.05 (4.8-10.8) K/uL RBC 3.66 L (4.7-6.1) M/uL Hgb 10.7 L (14.0-18.0) g/dL Hct 32.9 L (42-52) % MCV 89.9 (80-100) fL MCH 29.2 (25-34) pg MCHC 32.5 (32-36) g/dL RDW Std Deviation 50.4 H (36.4-46.3) fL RDW Coeff of Seferino 15.1 H (11.5-14.5) % Plt Count 153 (130-400) K/uL MPV 9.0 (7.4-10.4) fL Immature Gran % (Auto) 0.2 % Neut % (Auto) 78.9 % Lymph % (Auto) 4.9 % Lares % (Auto) 14.3 % Eos % (Auto) 1.4 % Baso % (Auto) 0.3 % Immature Gran # (Auto) 0.02 (0.00-0.02) K/uL Neut # (Auto) 7.14 H (1.4-6.5) K/uL Lymph # (Auto) 0.44 L (1.2-3.4) K/uL Lares # (Auto) 1.29 H (0.11-0.59) K/uL Eos # (Auto) 0.13 (0-0.5) K/uL Baso # (Auto) 0.03 (0-0.2) K/uL Sodium (136-145) mmol/L Potassium (3.5-5.1) mmol/L Chloride (98-107) mmol/L Carbon Dioxide (21-32) mmol/L Anion Gap (3-11) BUN (7-18) mg/dl Creatinine (0.6-1.4) mg/dl Est Cr Clr Drug Dosing Est GFR ( Amer) Est GFR (Non-Af Amer) BUN/Creatinine Ratio (10-20) Glucose (70-99) mg/dl Calcium (8.5-10.1) mg/dl Magnesium (1.8-2.4) mg/dl Total Bilirubin (0.2-1) mg/dl AST (15-37) U/L ALT (12-78) U/L Alkaline Phosphatase (45-117) U/L Troponin I (0-0.045) ng/ml Total Protein (6.4-8.2) gm/dl Albumin (3.4-5.0) gm/dl Globulin (2.5-4.0) gm/dl Albumin/Globulin Ratio (0.9-2) Influenza Type A Ag (Neg) Influenza Type A (PCR) (Neg) Influenza Type B Ag (Neg) Influenza Type B (PCR) (Neg) Medications Administered Current Inpatient Medications Sodium Chloride (Nss) 500 mls @ 125 mls/hr IV .Q4H STA Stop: 06/18/18 16:56 Last Admin: 06/18/18 13:18 Dose: 125 mls/hr Doxycycline Hyclate 100 mg/ (Dextrose) 110 mls @ 50 mls/hr IV NOW STA Stop: 06/18/18 16:57 Last Admin: 06/18/18 15:09 Dose: 50 mls/hr Code Status & VTE Plan Code Status Full code. VTE Prophylaxis Plan VTE Prophylaxis will be ordered: Yes Supervising Physician Co-Signing Physician Notes I personally examined the patient and verified all gramajo points of history and exam, discussed case, and agree with decision making with Dr Ortega sob, cough, fever. ongoing for about 5 days. came to ER due to respiratory symptoms. after nebs then developed severe chest pressure and EKG changes. very accurately accounts last [facility] last year showing distal small vessel disease not amenable to interventions - med management only. d/w dr peck. input appreciated. d/w ER as well. later signed out to night coverage regarding overall situation, angina, CT pending vitals noted fatigued and appearing somewhat uncomfortable. lungs symmetric rhonchi no wheeze good air entry. cardio reg rate no r/m/g. EKGs noted and f/ u EKG does show fairly deep ST depression. CXR surprisingly clear. flu neg. respiratory illness - flu neg and given duration of his illness more likely to be true negative and unlikely to get benefit from tamiflu. seems more ill than a non-flu virus would likely cause - CT chest to eval for pneumonia not seen on CXR. supportive care. hold on further beta agonists CAD w unstable angina/demand ischemia - agree w cardiology that angina is almost certainly secondary to his respiratory illness increasing metabolic/ physiologic stress. given recent cath with distal disease not amenable to PCI/ interventions, aggressive med management. already on appropriate meds per home regimen, increase beta blockade and nitrates, trend. otherwise as above Resident Activity Tracking Resident Involvement: Resident Care Provided Care Provided: Adult [facility] Medicine _ (1) Diabetic foot ulcer associated with type 1 diabetes mellitus Diabetic foot ulcer location: toe Laterality: right Non-pressure ulcer stage : limited to breakdown of skin Qualified Code(s): E10.621 - Type 1 diabetes mellitus with foot ulcer; L97.511 - Non-pressure chronic ulcer of other part of right foot limited to breakdown of skin
[2018-06-18] MEDS ORDERED: ASPIRIN CHEW 324 MG PO STA (16:21)
[2018-06-18] MEDS ORDERED: NITROGLYCERIN SL 0.4 MG/TAB TAB SL STA (16:21)
[2018-06-18] MEDS ORDERED: ASPIRIN 81 MG CHEW ONE (16:22)
[2018-06-18] MEDS ORDERED: HEPARIN (PORCINE) 1000 UNIT/ML 10 ML (CATH LAB USE ONLY) ONE (16:25)
[2018-06-18] MEDS ORDERED: NiCARDipine HCL INJ 2.5 MG/ML 10 ML AMP ONE (16:25)
[2018-06-18] MEDS ORDERED: fentaNYL citrate 100 MCG/2 ML VIAL ONE (16:25)
[2018-06-18] MEDS ORDERED: NITROGLYCERIN/D5W 100MCG/ML 20ML SYR ONE (16:25)
[2018-06-18] MEDS ORDERED: MIDAZOLAM HCL 1 MG/ML 2ML VIAL ONE (16:25)
--- NOTE | 2018-06-18 17:22 | Cardiology Consultation ---
Date of Consultation June 18, 2018 Assessment & Plan (1) Chest pain: 2. Multivessel coronary artery disease post three-vessel CABG, redo single-vessel bypass 3. Prior AVR 4. Paroxysmal atrial fibrillation on anticoagulation 5. Chronic kidney disease 6. Anemia of chronic disease 7. Acute viral illness Called to assess patient in the setting of acute onset chest pain following bronchodilators with ST changes on underlying paced rhythm. Current ST changes do not meet criteria for STEMI and chest pain improving. I reviewed patient's prior cardiac catheterization and previously noted to have severe small vessel disease. Suspect patient's chest pain secondary to demand ischemia in the setting of acute illness, atrial fibrillation with RVR in part induced with bronchodilators. At this point with patient's chronic kidney disease, chronic anticoagulation, peripheral vascular disease feel that potential risk outweighs possible benefit from proceeding with diagnostic angiography and recommend initial trial of medical management. Continue to treat patients underlying acute febrile illness. Rate control for atrial fibrillation, continued coronary vasodilators as needed. If refractory chest pain overnight, hemodynamic instability catheterization could be revisited. Findings discussed with Dr. Berman. History of Present Illness History of Present Illness Mr. Blake is a 72-year-old man with a complex past medical history as outlined below followed by Dr. Herrmann as an outpatient. Cardiology consulted for suspected ACS with heart alert activation. Patient presented to the ED today in the setting of URI symptoms and worsening dyspnea. Was initially treated with antibiotics and bronchodilators with plan for admission. Following albuterol patient became tachycardic with apparent atrial fibrillation with RVR and developed new chest pressure. Baseline rhythm on EKG is paced. Subsequent EKG after chest pain showed new worsened lateral ST depressions and questionable elevation in aVR, V1. At time of arrival patient's chest pain was improving. POC troponin negative. Still appears ill and dyspneic. Past medical history: 1. Long-standing coronary artery disease post three-vessel CABG in 1993, RCA IBRAHIMA in 2002, single vessel CABG with vein graft to PDA in July 2012 in the setting of bioprosthetic aortic valve replacement. 2. Bioprosthetic AVR 3. Complete heart block status post [employer] scientific dual-chamber pacemaker. 4. Paroxysmal atrial fibrillation. 5. Peripheral arterial disease including carotid artery, renal artery disease 6. Type 2 diabetes 7. Chronic renal insufficiency, baseline creatinine around 2 8. Anemia of chronic disease 9. History of gastric bypass Allergies Allergy/AdvReac Type Severity Reaction Status Date / Time No Known Allergies Allergy Verified 06/18/18 11:02 Home Medications Home Medications Medication Instructions Recorded Confirmed Type amlodipine 2.5 mg tablet 2.5 mg PO DAILY 04/07/18 06/18/18 History apixaban 5 mg tablet 5 mg PO BID 04/07/18 06/18/18 History atorvastatin 80 mg tablet 80 mg PO QPM 04/07/18 06/18/18 History calcitriol 0.5 mcg capsule 0.5 mcg PO DAILY 04/07/18 06/18/18 History cholecalciferol (vitamin D3) 2,000 2,000 units PO DAILY 04/07/18 06/18/18 History unit capsule clopidogrel 75 mg tablet 75 mg PO QPM tab 04/07/18 06/18/18 History cyanocobalamin (vitamin B-12) 1,000 mcg PO DAILY 04/07/18 06/18/18 History 1,000 mcg capsule ferrous sulfate 325 mg (65 mg 325 mg PO DAILY tab 04/07/18 06/18/18 History iron) tablet folic acid 1 mg tablet 1 mg PO DAILY 04/07/18 06/18/18 History furosemide 40 mg tablet 40 mg PO DAILY 04/07/18 06/18/18 History levothyroxine 112 mcg capsule 112 mcg PO DAILY 04/07/18 06/18/18 History magnesium oxide 400 mg capsule 400 mg PO DAILY cap 04/07/18 06/18/18 History nebivolol 5 mg tablet 0 mg PO DIRECTED PRN tab 04/07/18 05/05/18 History nitroglycerin 0.4 mg sublingual 0.4 mg SL Q5M PRN 04/07/18 06/18/18 History tablet pantoprazole 40 mg tablet,delayed 40 mg PO DAILY 04/07/18 06/18/18 History release vitamin B complex and vitamin C 1 cap PO DAILY 04/07/18 06/18/18 History no.20-folic acid 1 mg capsule insulin lispro [Humalog U-100 1 sliding scale dose SUBCUT UD 06/18/18 06/18/18 History Insulin] vitamins A,C,P-uonn-kokgtz 1 tab PO BID 06/18/18 06/18/18 History [PreserVision AREDS] Patient History Social History Current Living Situation: Spouse Feels Safe at Home: Yes Smoking Status: Never smoker Second Hand Exposure: No Hx Alcohol Use: No Hx Substance Use: No Beliefs That Will Affect Care: None Communication Ability: Effective Review of Systems Not completing the setting of emergent situation Physical Exam 2 Vital Signs (Past 24 Hours): Last Vital Signs Temp 37.8 C H 06/18/18 10:29 Pulse 118 H 06/18/18 17:05 Resp 32 H 06/18/18 17:05 BP 111/61 06/18/18 17:05 Pulse Ox 98 06/18/18 17:05 Physical Exam: General: Comfortable, dyspneic, uncomfortable, ill-appearing Eyes: Sclerae anicteric, extraocular movements intact HENT: Oropharynx clear mucous membranes moist Neck: Normal carotid upstrokes, no bruits. Lungs: Scattered wheezes Cardiac: Irregularly irregular, tachycardic Abdomen: Obese Extremities: Well perfused, 1+ lower extremity edema Skin: No rashes or lesions. Neuro: Nonfocal Psych: Alert orient x3, normal affect and mood Results & Data Medications Administered LM - Small vessel with mild to moderate diffuse disease LAD - Diffuse proximal disease with 60-70% late proximal disease prior to take- off of small 1st diagonal; 95% disease in mid LAD into 1st septal; occluded mid LAD after take-off of 1st septal. Circumflex - Small vessel, 50% ostial stenosis, moderate diffuse mid segment disease, OM2 occluded proximally. RCA - Large, dominant vessel, 70-80% focal mid disease; 99% in-stent restenosis in the proximal aspect of distal RCA/PDA stents. 70% ostial R-PAV/PLB MOROCHO-LAD - widely patent; distal LAD small with mild diffuse disease SVG-Diagonal - Widely patent SVG-OM - 50-60% proximal stenosis; 70% stenosis at anastomosis of small OM SVG-R-PDA - widely patent; 60-70% stenosis in PDA distal to anastomosis. Summary: 1. Patent MOROCHO-LAD, and vein grafts to diagonal, OM and R-PDA - 50-60% proximal SVG-OM 2. Severe [place] small vessel disease - 60-70% proximal, 95% mid segment stenosis prior to 1st septal - 70% R-PDA after SVG anastomosis - 70% stenosis at anastomosis of SVG-OM
[2018-06-18] MEDS ORDERED: METOPROLOL TARTRATE 1 MG/ML VIAL IV STA ×2 (18:03→19:39)
[2018-06-18] MEDS ORDERED: MoRPHine SULFATE 2 MG/ML CARP IV PRN (18:03)
[2018-06-18] MEDS ORDERED: NON-FORMULARY MEDICATION (Insulin Lispro [Humalog U-100 Insulin] 1 sliding scale dose) SQ SCH (19:39)
[2018-06-18] MEDS ORDERED: POLYETHYLENE (MIRALAX) 17 GM PACK PO PRN (19:39)
[2018-06-18] MEDS ORDERED: NITROGLYCERIN SL 0.4 MG/TAB TAB SL PRN ×2 (19:39)
[2018-06-18] MEDS ORDERED: MAGNESIUM HYDROXIDE SUSP 30 ML UDC PO PRN (19:39)
[2018-06-18] MEDS ORDERED: ALUMINUM/MAGNESIUM SUSP 30 ML UDC PO PRN (19:39)
[2018-06-18] MEDS ORDERED: METOPROLOL TARTRATE 1 MG/ML VIAL IV PRN (19:39)
[2018-06-18] MEDS ORDERED: SODIUM CHLORIDE 0.45 % 1,000 ML IV SCH (19:39)
[2018-06-18] MEDS ORDERED: APIXABAN 5 MG TABLET PO SCH (21:00)
--- NOTE | 2018-06-18 21:36 | CT Scan Report ---
CT chest wo con CT DOSE: 766.89 mGy.cm CLINICAL HISTORY: 73 years-old Male with Pneumonia?. Acute shortness of breath with cough and fever TECHNIQUE: Multiaxial CT images of the chest were performed without contrast. A dose lowering techni que was utilized adhering to the principles of ALARA. COMPARISON: Chest radiograph of same day, chest CT 10/19/2013, chest radiograph 10/10/2017, CT abdomen and pelvis 05/13/2017. FINDINGS: No dominant thyroid nodule. Left subclavian pacer is noted with leads appearing to be intact overlyin g the right atrium and right ventricle. Prior median sternotomy and CABG. Prosthetic aortic valve. De nse calcifications are noted about the mitral annulus. Mild multichamber cardiac enlargement. No janine cardial effusion. No thoracic aortic aneurysm. Unopacified pulmonary arterial tree is unremarkable. M ild subcarinal and paratracheal adenopathy. Subcarinal lymph nodes measure up to 1.2 cm. Paratracheal lymph nodes measure up to 1.2 cm. Prominent lymph nodes about the prevascular distribution. Trace right and small left pleural effusions. No pneumothorax. There are a few subtle bronchovascular distribution of groundglass and nodular opacities about the right middle and right lower lobes with tree-in-bud opacities. Chronic scarring/atelectasis of the left lung base. Additionally, there are ne w bronchovascular distribution of groundglass and consolidative opacities about the basal left lower lobe, image 214 series 4. Similar findings are noted within the superior segment of the left lower lo be. Central airways appear to be patent. Minimal cholelithiasis. No acute process about the imaged upper abdomen. Postoperative changes of the stomach. Soft tissues are within normal limits. The bones appear to be intact. Multilevel spondyliti c spurring with facet arthrosis and intervertebral disc space narrowing of the spine. Chondrocalcinos is of the bilateral shoulders. IMPRESSION: 1. Scattered bronchovascular distribution of groundglass and nodular consolidative opacities involves the left lower lobe and to a lesser extent right middle and lower lobes suggesting multifocal bronch opneumonia versus aspiration pneumonitis. Mild associated bronchiolitis is also noted. 2. Trace right and small left pleural effusions. 3. Chronic fibrotic changes with atelectasis noted about the left lung base. 4. Cardiomegaly with prior median sternotomy and CABG with prosthetic aortic valve. 5. Mild mediastinal adenopathy, likely reactive. Electronically signed by: Ranjit Boothe M.D. 06/18/2018 9:34 PM
[2018-06-18] MEDS ORDERED: GLUCOSE 40% GEL 15 GM TUBE PO PRN (21:50)
[2018-06-18] MEDS ORDERED: DEXTROSE 50% 50 ML SYRINGE IV PRN (21:50)
[2018-06-18] MEDS ORDERED: CARBOHYDRATES FOR HYPOGLYCEMIA PO PRN (21:50)
[2018-06-18] MEDS ORDERED: GLUCOSE 10 TABS/TUBE PO PRN (21:50)
[2018-06-18] MEDS ORDERED: INSULIN HUMAN LISPRO (humaLOG) 100 UNITS/ML VIAL SC PRN (21:50)
[2018-06-18] MEDS ORDERED: GLUCAGON FOR INJ 1 MG VIAL SQ PRN (21:50)
[2018-06-18] MEDS: CLOPIDOGREL BISULFATE 75 MG TAB PO SCH (22:09)
[2018-06-18] MEDS: ATORVASTATIN 40 MG TAB PO SCH (22:09)
[2018-06-18] MEDS: CEROVITE ADV FORMULA TAB PO SCH (22:11)
[2018-06-18] MEDS: METOPROLOL SUCC 25MG EXT REL TAB PO SCH (22:34)
[2018-06-18 22:48] LABS: Appearance Urine Clear (Clear); Bacteria Urine Automated Negative (Negative); Bilirubin Urine Negative (Negative); Blood Urine Negative (Negative); Color Urine Dark Yellow; Glucose Urine UA Negative (Negative); Ketones Urine Negative (Negative); Leukocyte Esterase Urine Negative (Negative); Nitrite Urine Negative (Negative); Protein Urine 2+ (Negative); Specific Gravity Urine 1.019 (1.000-1.030); Urobilinogen Urine Negative (Negative)
[2018-06-18] MEDS ORDERED: PIPERACILL/TAZOBAC CONSULT ACTIVE PRN (23:12)
[2018-06-18] MEDS ORDERED: VANCOMYCIN CONSULT ACTIVE PRN (23:12)
[2018-06-18] MEDS ORDERED: PIPERACILLIN/TAZOBACTAM 3.375 GM in DEXTROSE 5% 100 ML IV SCH (23:15)
[2018-06-18] MEDS ORDERED: VANCOMYCIN HCL 1,000 MG in SODIUM CHLORIDE 0.9% 250 ML IV SCH (23:15)
--- NOTE | 2018-06-18 23:41 | Progress Note ---
Date of Service June 18, [address] scan showed a multifocal pneumonia. I placed him on IV Vancomycin, and Zosyn. I ordered a sputum culture and gram stain. His troponin was also elevated to 9. I ordered an EKG which did not show any ST changes (Dr. Cummings reviewed this). We will hold the patients eliquis and the patient will need to be started on a heparin drip at the time of his next eliquis dose. His last eliquis dose was at 9am. He already has a cardiology consult ordered. Currently he denies any chest pain or shortness of breath. Lj PGY3 Physical Exam 2 Vital Signs (Past 24 Hours): Last Vital Signs Temp 37.3 C 06/18/18 23:29 Pulse 87 06/18/18 23:29 Resp 18 06/18/18 23:29 BP 122/73 06/18/18 23:29 Pulse Ox 99 06/18/18 23:29
[2018-06-18] MEDS ORDERED: SODIUM CHLORIDE 0.9% 1000ML 1,000 ML IV SCH (23:45)
[2018-06-18] MEDS ORDERED: Nursing to Pharmacy Communication ONE (23:49)
[2018-06-19] MEDS ORDERED: PIPERACILLIN/TAZOBACTAM 3.375 GM in DEXTROSE 5% 100 ML IV ONE
[2018-06-19] MEDS ORDERED: VANCOMYCIN HCL 2,000 MG in SODIUM CHLORIDE 0.9% 500 ML IV SCH
[2018-06-19] MEDS: PIPERACILLIN/TAZOBACTAM 3.375 GM in DEXTROSE 5% 100 ML IV SCH ×2 (03:42→11:28)
[2018-06-19] MEDS ORDERED: Nursing to Pharmacy Communication ONE (03:49)
[2018-06-19] MEDS ORDERED: COUGH DROP (SUGAR FREE) LOZ 24 LOZ/1 BOX BUCCAL PRN (03:53)
[2018-06-19] MEDS: LEVOTHYROXINE SODIUM 112 MCG TABLET PO SCH (06:00)
[2018-06-19 06:27] LABS: Basophils # (auto) 0.01 K/uL (0-0.2); Basophils % (auto) 0.1 %; Hematocrit (blood only) 30.4 % (42-52); Hemoglobin 9.9 g/dL (14.0-18.0); Immature Granulocytes # (auto) 0.03 K/uL (0.00-0.02); Immature Granulocytes % (auto) 0.3 %; Lymphocytes % (auto) 2.1 %; Mean Corpuscular Hgb Conc 32.6 g/dL (32-36); Mean Corpuscular Volume 88.9 fL (80-100); Mean Platelet Volume 8.7 fL (7.4-10.4); Monocytes # (auto) 0.74 K/uL (0.11-0.59); Monocytes % (auto) 7.6 %; Neutrophils # (auto) 8.72 K/uL (1.4-6.5); Neutrophils % (auto) 89.9 %; Platelet Count 124 K/uL (130-400); RDW Standard Deviation 48.9 fL (36.4-46.3); Red Blood Count 3.42 M/uL (4.7-6.1)
[2018-06-19 07:02] LABS: Calcium 8.6 mg/dl (8.5-10.1); Creatinine Clr Calc Pharmacy 31.5 ml/min; Est GFR (African American) 31.4; Est GFR (Non-African American) 27.1; Potassium 4.8 mmol/L (3.5-5.1)
[2018-06-19 07:10] LABS: Troponin I 27.6 ng/ml (0-0.045)
[2018-06-19] MEDS ORDERED: MAGNESIUM OXIDE 400 MG TAB PO SCH (09:00)
[2018-06-19] MEDS ORDERED: FOLIC ACID 1 MG TAB PO SCH (09:00)
[2018-06-19] MEDS ORDERED: CALCITRIOL 0.25 MCG CAPSULE PO SCH (09:00)
[2018-06-19] MEDS ORDERED: CYANOCOBALAMIN 500 MCG TABLET (VITAMIN B-12) PO SCH (09:00)
[2018-06-19] MEDS ORDERED: CHOLECALCIFEROL 1,000 UNITS TAB PO SCH (09:00)
[2018-06-19] MEDS ORDERED: FERROUS SULFATE 325 MG TAB PO SCH (09:00)
[2018-06-19] MEDS ORDERED: FUROSEMIDE 40 MG TAB PO SCH (09:00)
[2018-06-19] MEDS ORDERED: NEPHROCAPS PO SCH (09:00)
[2018-06-19] MEDS: HEPARIN SODIUM/DEXTROSE 25,000 UNITS/500 ML BAG IV SCH (09:05)
[2018-06-19] MEDS: AMLODIPINE BESYLATE 5 MG TAB PO SCH (09:41)
[2018-06-19] MEDS: CEROVITE ADV FORMULA TAB PO SCH ×2 (09:41→21:31)
[2018-06-19] MEDS: METOPROLOL SUCC 25MG EXT REL TAB PO SCH (09:42)
[2018-06-19] MEDS: PANTOprazole 40 MG TAB PO SCH (09:42)
[2018-06-19] MEDS ORDERED: GUAIFENESIN/DEXTROM SYRUP 100MG/10MG 5ML UDC PO ONE (12:00)
[2018-06-19] MEDS: SODIUM CHLORIDE 0.9% 500 ML IV SCH ×2 (12:03→16:51)
[2018-06-19] MEDS ORDERED: NON-FORMULARY PATIENT'S OWN MED SCH (12:45)
[2018-06-19] MEDS: ONDANSETRON INJ 2 MG/ML 2 ML VIAL IV PRN ×2 (13:10→21:08)
--- NOTE | 2018-06-19 13:38 | Family Medicine Progress Note ---
Date of Service June 19, 2018 Assessment & Plan (1) Fever and chills: Mr. Blake is a 73yo M with a PMHx of T1DM with neuropathy/retinopathy/ foot ulceration, HTN, CKD, Aflutter w/ pacer, CABG x3 in 1993, and AVR 2012 who presents with cough, fever, and chills worsening over one week. Fever/Chills, Pneumonia vs. Aspiration Pneumonitis - Influzena rapid negative, influenze PCR negative. Prodrome of 4-5 days. Recieved doxy x1 dose in ED. - 37.8*C without leukocytosis in ED - CXR negative, CT-C shows consolidative opacities in the LLL, RML, RLL suggestive of multifocal bronchopneumonia vs aspiration pneumonitis - Sputum cultures pending - Narrowed Pip-Tazo to Ceftriaxone+Doxy as below. Doxy chosen vs Azithromycin given marginal QTp. - Ceftriaxone 1g daily + Doxy 100mg BID, expect total course 5-7 days - APAP 650mg Q6H for fever, discomfort Chest Pain, NSTEMI - Mild chest tightness on admit, developed crushing chest pain and ST depressions following DuoNeb. Last cath reviewed by cards, small vessel disease not amenable to stenting. Likely had demand ischemia in the setting of acute illness worsened by the duoneb. Improving with nitro, anticoagulated with apixaban and on clopigrel at baseline. - Initial trop 0.015 worsened to 9.2, 27, 28 on serial repeats - Cardiology consuled - Heparin gtt for 48 hours, then resume Eliquis. No plans to cath at this time unless develops recurrent symptoms. - Repeat ECHO 06/19/18: LVEG 60-65%, baseal inferior/inferolateral hypokinesis, normal RV size, mod RV dysfunction, new mod RV dysfunction, normal RV size, mild -mod MR. - Nitro SL PRN, B-lissette as below - On home nebivolol, not on formulary. - Nebivolol 5mg PO daily, taking TRAY PACKER med verified by pharmacy; declines conversion to metoprolol during admission. Chronic HFpEF - Prior ECHO 02/2018: LVEF 50-55% grade II diastolic dysfunction, LV function normal. Mild concentric LVH. T1DM with peripheral neuropathy - Last A1C 7.3 in February 2018. - Repeat A1C - Continue pt driven insulin pump control. If he did not maintain good glycemic control will convert to hospital direct insulin therapy. - Glucose checks AC/HS - BMP daily Atrial Flutter - Amlodipine 2.5mg daily - TRAY PACKER nebivolol - Apixaban 5mg BID held, restart after 48 hours as above Chronic Kidney Disease, Stage 3 (baseline Cr ~2.1, eGFR 29.1) - d/c furosemide 40mg. No longer taking. - Renally dose medications - Avoid nephrotoxins - BMP,Cr daily Hypertension - Amlodipine as above - Not on an LINDA/ARB TRAY PACKER, consider addition for renoprotection Bronchitis - Avoid albuterol given increased cardiac demand and onset of chest pain as above - Methylprednisolone x5 days - Ipratropium inh Q6-Q8H PRN - CT-C shows multifocal pneumonia, tx as above History of CABGx3 (1993) - Continue Atorvastatin 80mg daily - Clopidogrel 75 for AVR as noted below - Nebivolol as above Aortic Valve Replacement (2012) - Clopidogrel 75mg daily Hypothyroidism - TRAY PACKER levothyroxine 112mcg daily Tachycardia (resolved) - Nebivolol as above. DVT Prophylaxsis: Heparin gtt, held Apixaban 2.5mg BID Code: Status Full (2) Chest pain: (3) Diabetic peripheral neuropathy associated with type 1 diabetes mellitus: (4) Atrial flutter: (5) Hx of CABG: (6) Aortic valve replaced: (7) Chronic kidney disease: (8) Hypertension: Supervising Physician Co-Signing Physician Notes I personally examined the patient and verified all gramajo points of history and exam, discussed case, and agree with decision making with Dr Ortega Coughing, no further chest pain. vitals noted, he appears less fatigued than yesterday still somewhat fatigued in no distress. HEENT normal cephalic atraumatic mucous membranes are moist. Cardio is regular without rubs murmurs or gallops. Lungs show a degree of rhonchi probably left worse than right but it is definitely better than last night no accessory muscle use good effort, skin shows no rashes no pallor or icterus. Neuro shows cranial nerves II through XII be grossly intact gross motor and sensory intact. Community-acquired pneumoniacontinue antibiotic coverage. Continue supportive care. Hold off on beta agonists given his demand ischemia CAD w unstable angina/demand ischemia -medication management. Patient is very particular about his beta-lissette, I discussed with him that right now we may need to use more beta-lissette than he normally does, and that the goal right now is to "turn down the treadmill" of the demand ischemia being brought on by the physiologic stress of his pneumonia. Continue med management otherwise. Appreciate cardiology input. DVT prophylaxishe is anticoagulated otherwise as above Subjective Mr. Blake reports he continues to have some chest tightness, but greatly reduced from what he experienced yesterday. Notes the tightness feels constant, 2/10. Continues to have some shortness of breath, some difficulty breathing when he coughs. No chest pain. No nausea/diarrhea/constipation/vision change/ loss of conciousness. He expresses extreme frustration over medication changes on admission, and does not want to be switched from his home BB Bistolic. Would like to have his home dose verified by pharmacy so he can use it during admission. Review of Systems See HPI Physical Exam 2 Vital Signs (Past 24 Hours): Last Vital Signs Temp 36.9 C 06/19/18 11:05 Pulse 74 06/19/18 11:05 Resp 19 06/19/18 11:05 BP 134/82 06/19/18 11:05 Pulse Ox 99 06/19/18 11:05 Physical Exam: General: A&Ox3. NAD. Cooperative. Head: Atraumatic, normocephalic. Pulm: LLL soft rales, RLL crackles. No wheeze appreciated. Symmetrical chest rise. Cardiac: RRR, -mrg. Radial pulses intact and symmetrical. No JVD appreciated. Abdominal: Nontender, nondistended, soft. BS present. Extremities: 1+ edema to the midcalf bilaterally, R>L. Chronic venous stasis changes bilaterally. PT pulses intact bilaterally. Resident Activity Tracking Resident Involvement: Resident Care Provided Care Provided: Adult Hospital Medicine
--- NOTE | 2018-06-19 14:00 | Pharmacy Report ---
Pharmacy Abx Initial Consult - Date of Service June 19, 2018 - Pharmacy Dosing Scope Date of Consult: 06/19 Consultation requested by: Dr. Sarmiento Pharmacy is consulted to initiate vanco/zosyn IV/PO dosing therapy, order appropriate labs and adjust drug dose/frequency. - Subjective The patient is a 73 year old M admitted on 06/18/18 17:29. - Objective Height: 5 ft 10 in Weight: 89.2 kg Vital Signs (Past 12hrs): Vital Signs Temp Pulse Pulse Resp BP BP Pulse Ox 06/19/18 11:05 36.9 C 74 19 134/82 99 06/19/18 08:00 103 H 06/19/18 07:02 36.7 C 88 16 130/75 98 06/19/18 04:34 36.7 C 72 19 126/76 100 06/19/18 04:01 36.5 C 79 20 125/70 100 Lab Results (24hrs): Laboratory Tests (24 Hours) 06/19/18 06/19/18 06:12 06:12 WBC 9.70 Neut # (Auto) 8.72 H Creatinine 2.28 H Est Cr Clr Drug Dosing 31.5 Micro Results: 06/19/18 02:00 Gram Stain - Final Sputum, Expectorated Sputum Culture - Pending 06/18/18 11:31 Blood Culture - Pending Blood 06/18/18 11:19 Blood Culture - Pending Blood - Assessment & Plan Assessment 73 year old M T1DM presented with cough/fever/chills Patient Tmax 37.8, blood and sputum cultures pending CXR negative but CT shows opacities suggestive of multifocal bronchopneumonia vs. aspiration Started on vancomycin/zosyn Plan Vancomycin IV * Estimated PK Parameters: Vd 0.7 L/kg, Tyrone 0.03 hr-1, t1/2 23 hr * Loading dose: 2 gm IV x 1 in ED * SCr increased this AM, T1/2 estimated ~23 hours, will check a random level at half life if <20 can start q24H maintenance dose * Goal trough level 15-20 * Random ordered for tonight at 2300 Piperacillin/tazobactam * 3.375 g bolus administered over 30 minutes, then 3.375 g IV extended infusion every 8 hours for CrCl greater than 20 mL/min Pharmacy will continue to follow and will adjust dose/frequency as necessary. Thank you.
[2018-06-19] MEDS: cefTRIAXone SODIUM 1,000 MG in DEXTROSE 5% 50 ML IV SCH (15:50)
[2018-06-19] MEDS: NEBIVOLOL HCL 5 MG TAB PO SCH (15:51)
[2018-06-19 15:57] LABS: Partial Thromboplastin Ratio 2.3
[2018-06-19 16:04] LABS: Partial Thromboplastin Time 59.7 Seconds (21.0-31.0)
--- NOTE | 2018-06-19 16:29 | Cardiology Progress Note ---
Date of Service June 19, 2018 Assessment & Plan (1) NSTEMI (non-ST elevated myocardial infarction): 2. Multivessel coronary artery disease post three-vessel CABG, redo single-vessel bypass 3. Prior AVR 4. Paroxysmal atrial fibrillation on anticoagulation 5. Chronic kidney disease 6. Anemia of chronic disease 7. Acute febrile illness At present patient is chest pain free, hemodynamically and electrically stable without heart failure. No indication for urgent intervention. Troponin has peaked and LV function is preserved on echo. New regional wall motion abnormalities are mild, most consistent with RCA disease which was previously know to have severe in-stent distal restenosis and is bypassed with SVG to mid R-PDA. In that context feel the likelihood of finding new high-risk disease amenable to PCI is relatively low and with patient's co-morbidities would favor continued medical management of NSTEMI. Discussed with patient and family and they are in agreement. Going forward: -- Continue heparin infusion for 48 hrs than resume long-term anticoagulation with Eliquis -- continue current clopidogrel -- continue beta-lissette, amlodipine No plans for cardiac cath unless recurrent refractory symptoms. Subjective Patient seen multiple times during day. Endorsed persistent coughing, mild dyspnea and generally feeling unwell. No emily chest pain since yesterday. Troponin went up to 9 -- 28 -- 18 Telemetry unremarkable. Echo showed preserved overall LV function. Mild basal inferior/inferolateral hypokinesis, RV dysfunction. Physical Exam 2 Vital Signs (Past 24 Hours): Last Vital Signs Temp 36.7 C 06/19/18 15:26 Pulse 82 06/19/18 15:26 Resp 20 06/19/18 15:26 BP 132/81 06/19/18 15:26 Pulse Ox 100 06/19/18 15:26 Physical Exam: General: Uncomfortable, no acute distress Eyes: Sclerae anicteric, extraocular movements intact Lungs: coarse breath sounds with scattered wheezes Cardiac: Regular rate, 2/6 holosystolic murmur at apex Abdomen: Soft, nontender, nondistended, positive bowel sounds. Extremities: Well perfused, chronic venous stasis changes Skin: No rashes or lesions. Neuro: Nonfocal Psych: Alert orient x3, normal affect and mood
[2018-06-19] MEDS: ACETAMINOPHEN 325 MG TAB PO PRN (21:05)
[2018-06-19] MEDS: DOXYCYCLINE HYCLATE 100 MG in DEXTROSE 5% 100 ML IV SCH (21:05)
[2018-06-19] MEDS: MAGNESIUM OXIDE 400 MG TAB PO SCH (21:07)
[2018-06-19] MEDS: CYANOCOBALAMIN 500 MCG TABLET (VITAMIN B-12) PO SCH (21:08)
[2018-06-19] MEDS: CALCITRIOL 0.25 MCG CAPSULE PO SCH (21:08)
[2018-06-19] MEDS: CHOLECALCIFEROL 1,000 UNITS TAB PO SCH (21:09)
[2018-06-19] MEDS: FERROUS SULFATE 325 MG TAB PO SCH (21:09)
[2018-06-19] MEDS: FOLIC ACID 1 MG TAB PO SCH (21:09)
[2018-06-19] MEDS: NEPHROCAPS PO SCH (21:09)
[2018-06-19] MEDS: ATORVASTATIN 40 MG TAB PO SCH (21:31)
[2018-06-19] MEDS: CLOPIDOGREL BISULFATE 75 MG TAB PO SCH (21:32)
[2018-06-20] MEDS: LEVOTHYROXINE SODIUM 112 MCG TABLET PO SCH (06:13)
[2018-06-20 07:58] LABS: Hematocrit (blood only) 33.6 % (42-52); Hemoglobin 10.9 g/dL (14.0-18.0); Mean Corpuscular Hgb Conc 32.4 g/dL (32-36); Mean Corpuscular Volume 88.7 fL (80-100); Mean Platelet Volume 9.7 fL (7.4-10.4); Platelet Count 127 K/uL (130-400); RDW Coefficient of Variation 15.4 % (11.5-14.5); RDW Standard Deviation 49.6 fL (36.4-46.3); Red Blood Count 3.79 M/uL (4.7-6.1); White Blood Count 10.19 K/uL (4.8-10.8)
[2018-06-20 08:24] LABS: Partial Thromboplastin Ratio 2.9
[2018-06-20 08:30] LABS: Partial Thromboplastin Time 74.4 Seconds (21.0-31.0)
[2018-06-20 08:32] LABS: BUN Creatinine Ratio 20.4 (10-20); Calcium 8.8 mg/dl (8.5-10.1); Creatinine Clr Calc Pharmacy 22.7 ml/min; Est GFR (African American) 21.1; Est GFR (Non-African American) 18.2; Potassium 5.3 mmol/L (3.5-5.1)
[2018-06-20] MEDS: AMLODIPINE BESYLATE 5 MG TAB PO SCH (09:03)
[2018-06-20] MEDS: CEROVITE ADV FORMULA TAB PO SCH ×2 (09:04→21:28)
[2018-06-20] MEDS: PANTOprazole 40 MG TAB PO SCH (09:05)
[2018-06-20] MEDS: DOXYCYCLINE HYCLATE 100 MG in DEXTROSE 5% 100 ML IV SCH ×2 (09:06→21:29)
[2018-06-20] MEDS: NEBIVOLOL HCL 5 MG TAB PO SCH (09:17)
[2018-06-20] MEDS: ACETAMINOPHEN 325 MG TAB PO PRN ×2 (09:22→23:56)
[2018-06-20] MEDS ORDERED: SODIUM CHLORIDE 0.9% 1000ML 1,000 ML IV SCH (09:45)
[2018-06-20] MEDS: Heparin IV Low Dose *NO* Bolus SCH ×2 (09:58→09:59)
[2018-06-20] MEDS: cefTRIAXone SODIUM 1,000 MG in DEXTROSE 5% 50 ML IV SCH (14:09)
[2018-06-20 15:31] LABS: Partial Thromboplastin Time 77.2 Seconds (21.0-31.0)
[2018-06-20] MEDS: HEPARIN SODIUM/DEXTROSE 25,000 UNITS/500 ML BAG IV SCH (15:38)
--- NOTE | 2018-06-20 19:30 | Family Medicine Progress Note ---
Date of Service June 20, 2018 Assessment & Plan (1) Fever and chills: Mr. Blake is a 73yo M with a PMHx of T1DM with neuropathy/retinopathy/ foot ulceration, HTN, CKD, Aflutter w/ pacer, CABG x3 in 1993, and AVR 2012 who presents with cough, fever, and chills worsening over one week. Fever/Chills, Pneumonia vs. Aspiration Pneumonitis - Influzena rapid negative, influenze PCR negative. Prodrome of 4-5 days. Recieved doxy x1 dose in ED. - 37.8*C without leukocytosis in ED - CXR negative, CT-C shows consolidative opacities in the LLL, RML, RLL suggestive of multifocal bronchopneumonia vs aspiration pneumonitis - Sputum cultures unremarkable - Narrowed Pip-Tazo to Ceftriaxone+Doxy as below. Doxy chosen vs Azithromycin given marginal QTp. - Ceftriaxone 1g daily + Doxy 100mg BID, expect total course 5-7 days. Currently on tx day #1 - APAP 650mg Q6H for fever, discomfort Chest Pain, NSTEMI - Mild chest tightness on admit, developed crushing chest pain and ST depressions following DuoNeb. Last cath reviewed by cards, small vessel disease not amenable to stenting. Likely had demand ischemia in the setting of acute illness worsened by the duoneb. Improving with nitro, anticoagulated with apixaban and on clopigrel at baseline. - Initial trop 0.015 worsened to 9.2, 27, 28 now downtrending to 18 - Cardiology consulted - Heparin gtt for 48 hours (until 1/27 AM), then resume Eliquis. No plans to cath at this time unless develops recurrent symptoms. - Repeat ECHO 06/19/18: LVEG 60-65%, baseal inferior/inferolateral hypokinesis, normal RV size, mod RV dysfunction, new mod RV dysfunction, normal RV size, mild -mod MR. - Nitro SL PRN, B-lissette as below - On home nebivolol, not on formulary. - Nebivolol 5mg PO daily, taking [employer] med verified by pharmacy; declines conversion to metoprolol during admission. Prerenal Azotemia - Cr 3.1 from 2.8 with BUN 65 - Suspect hypovolemia in setting of acute illness - Thais IVFM 75cc/hr. - Tolerating good PO intake - Caution boluses given his NSTEMI with mild wall motion change in RV Chronic HFpEF - Prior ECHO 02/2018: LVEF 50-55% grade II diastolic dysfunction, LV function normal. Mild concentric LVH. T1DM with peripheral neuropathy - Last A1C 7.3 in February 2018. - Repeat A1C - Continue pt driven insulin pump control. If he did not maintain good glycemic control will convert to hospital direct insulin therapy. Good glycemic control today. - Glucose checks AC/HS - BMP daily Atrial Flutter - [employer] nebivolol - Apixaban 5mg BID held, restart after 48 hours as above Chronic Kidney Disease, Stage 3 (baseline Cr ~2.1, eGFR 29.1) - d/c furosemide 40mg. No longer taking. - Renally dose medications - Avoid nephrotoxins - BMP,Cr daily Hypertension - Amlodipine 2.5mg daily Bronchitis - Avoid albuterol given increased cardiac demand and onset of chest pain as above - Methylprednisolone x5 days - Ipratropium inh Q6-Q8H PRN - CT-C shows multifocal pneumonia, tx as above History of CABGx3 (1993) - Continue Atorvastatin 80mg daily - Clopidogrel 75 for AVR as noted below - Nebivolol as above Aortic Valve Replacement (2012) - Clopidogrel 75mg daily Hypothyroidism - [employer] levothyroxine 112mcg daily Tachycardia (resolved) - Nebivolol as above. DVT Prophylaxsis: Heparin gtt, held Apixaban 2.5mg BID Code: Status Full (2) Chest pain: (3) Diabetic peripheral neuropathy associated with type 1 diabetes mellitus: (4) Atrial flutter: (5) Hx of CABG: (6) Aortic valve replaced: (7) Chronic kidney disease: (8) Hypertension: Supervising Physician Co-Signing Physician Notes Resident Physician Supervision Note: I independently interviewed and examined the patient and verified the gramajo history and physical, reviewed labs and image studies, discussed the case with the resident Dr. Ortega and agree with the findings and care plan. Subjective Mr. Blake reports he feels much better today. he thinks he is still dehydrated, but his chest pain has improved and it now just tight when he coughs. Minimal shortness of breath today. His cough persists, nonproductive. Tolerating PO well. No chest pain, difficulty breathing, lightheadedness, dizziness, loss of conciousness, nausea, vomiting, diarrhea, constipation. No questions or concerns at time of visit. No muscle aches, body aches, change in vision, loss of strength. Review of Systems See HPI Physical Exam 2 Vital Signs (Past 24 Hours): Last Vital Signs Temp 37.0 C 06/20/18 11:59 Pulse 75 06/20/18 15:34 Resp 17 06/20/18 11:59 BP 101/65 06/20/18 11:59 Pulse Ox 96 06/20/18 11:59 Physical Exam: General: A&Ox3. NAD. Cooperative. Head: Atraumatic, normocephalic. Pulm: RLL crackles, RLL/LLL expiratory wheeze. Symmetrical chest rise. Cardiac: RRR, -mrg. No JVD appreciated. Abdominal: Nontender, nondistended, soft. BS present. Extremities: 1+ edema to the midcalf bilaterally, chronic venous stasis changes. Results & Data Laboratory Results Abnormal lab results 06/19/18 06/20/18 06/20/18 Range/Units 21:15 07:39 07:49 RBC 3.79 L (4.7-6.1) M/uL Hgb 10.9 L (14.0-18.0) g/dL Hct 33.6 L (42-52) % RDW Std Deviation 49.6 H (36.4-46.3) fL RDW Coeff of Seferino 15.4 H (11.5-14.5) % Plt Count 127 L (130-400) K/uL APTT (21.0-31.0) Seconds Potassium (3.5-5.1) mmol/L Carbon Dioxide (21-32) mmol/L Anion Gap (3-11) BUN (7-18) mg/dl Creatinine (0.6-1.4) mg/dl BUN/Creatinine Ratio (10-20) Glucose (70-99) mg/dl POC Glucose 153 H 228 H (70-99) 06/20/18 06/20/18 06/20/18 Range/Units 07:49 07:49 11:33 RBC (4.7-6.1) M/uL Hgb (14.0-18.0) g/dL Hct (42-52) % RDW Std Deviation (36.4-46.3) fL RDW Coeff of Seferino (11.5-14.5) % Plt Count (130-400) K/uL APTT 74.4 H* (21.0-31.0) Seconds Potassium 5.3 H (3.5-5.1) mmol/L Carbon Dioxide 17 L (21-32) mmol/L Anion Gap 12.0 H (3-11) BUN 65 H (7-18) mg/dl Creatinine 3.17 H D (0.6-1.4) mg/dl BUN/Creatinine Ratio 20.4 H (10-20) Glucose 240 H (70-99) mg/dl POC Glucose 113 H (70-99) 06/20/18 06/20/18 Range/Units 14:23 16:05 RBC (4.7-6.1) M/uL Hgb (14.0-18.0) g/dL Hct (42-52) % RDW Std Deviation (36.4-46.3) fL RDW Coeff of Seferino (11.5-14.5) % Plt Count (130-400) K/uL APTT 77.2 H* (21.0-31.0) Seconds Potassium (3.5-5.1) mmol/L Carbon Dioxide (21-32) mmol/L Anion Gap (3-11) BUN (7-18) mg/dl Creatinine (0.6-1.4) mg/dl BUN/Creatinine Ratio (10-20) Glucose (70-99) mg/dl POC Glucose 129 H (70-99) Medications Administered Current Inpatient Medications Acetaminophen (Tylenol) 650 mg PO Q4H PRN PRN Reason: Pain or Fever Stop: 07/18/18 19:38 Last Admin: 06/20/18 09:22 Dose: 650 mg Al Hydrox/Mg Hydrox/Simethicone (Maalox) 15 ml PO Q4H PRN PRN Reason: Dyspepsia Stop: 07/18/18 19:38 Amlodipine Besylate (Norvasc) 2.5 mg PO DAILY [facility] Stop: 07/19/18 08:59 Last Admin: 06/20/18 09:03 Dose: 2.5 mg Apixaban (Eliquis) 5 mg PO BID [facility] Stop: 07/18/18 20:59 Last Admin: 06/18/18 22:08 Dose: 5 mg Atorvastatin Calcium (Lipitor) 80 mg PO QPM [facility] Stop: 07/18/18 20:59 Last Admin: 06/19/18 21:31 Dose: 80 mg Calcitriol (Racaltrol) 0.5 mcg PO DAILY@2100 [facility] Stop: 07/19/18 20:59 Last Admin: 06/19/18 21:08 Dose: 0.5 mcg Clopidogrel Bisulfate (Plavix) 75 mg PO QPM [facility] Stop: 07/18/18 20:59 Last Admin: 06/19/18 21:32 Dose: 75 mg Cyanocobalamin (Vitamin B-12) 1,000 mcg PO DAILY@2100 [facility] Stop: 07/19/18 20:59 Last Admin: 06/19/18 21:08 Dose: 1,000 mcg Dextrose (Dextrose 50%) 25 - 50 ml IV UD PRN; Protocol PRN Reason: Hypoglycemia Protocol Stop: 07/18/18 21:49 Ferrous Sulfate (Feosol) 325 mg PO DAILY@2099 [facility] Stop: 07/19/18 20:59 Last Admin: 06/19/18 21:09 Dose: 325 mg Folic Acid (Folvite) 1 mg PO DAILY@2099 [facility] Stop: 07/19/18 20:59 Last Admin: 06/19/18 21:09 Dose: 1 mg Furosemide (Lasix) 40 mg PO DAILY [facility] Stop: 07/19/18 08:59 Last Admin: 06/19/18 09:40 Dose: Not Given Glucagon (Glucagen) 1 mg SQ UD PRN; Protocol PRN Reason: Hypoglycemia Protocol Stop: 07/18/18 21:49 Glucose (Glucose 40%) 15 - 30 gm PO UD PRN; Protocol PRN Reason: Hypoglycemia Protocol Stop: 07/18/18 21:49 Glucose (Dex4 Glucose) 4 - 8 tabs PO UD PRN; Protocol PRN Reason: Hypoglycemia Protocol Stop: 07/18/18 21:49 Heparin Sodium/Dextrose (Heparin Sodium/Dextrose) 25,000 units in 500 mls @ 10 mls/hr IV .Q24H [facility]; Protocol Stop: 07/19/18 08:59 Last Titration: 06/20/18 19:01 Dose: 500 units/hr, 10 mls/hr Doxycycline Hyclate 100 mg/ (Dextrose) 110 mls @ 50 mls/hr IV BID [facility]; Protocol Stop: 06/24/18 20:59 Last Infusion: 06/20/18 11:26 Dose: Infused Ceftriaxone Sodium 1,000 mg/ (Dextrose) 50 mls @ 100 mls/hr IV DAILY@1400 [facility]; Protocol Stop: 06/24/18 14:59 Last Infusion: 06/20/18 15:37 Dose: Infused Sodium Chloride (Nss 1000ml) 1,000 mls @ 75 mls/hr IV .[id number] [facility] Stop: 06/20/18 23:04 Last Admin: 06/20/18 10:08 Dose: 75 mls/hr Insulin Human Lispro (Humalog Insulin Pump) 1 ea N/A ACHS [facility]; Protocol Stop: 07/19/18 07:29 Last Admin: 06/20/18 17:48 Dose: Not Given Insulin Human Lispro (Humalog) 0 units SC PRN PRN PRN Reason: Blood Sugar Stop: 07/18/18 21:49 Levothyroxine Sodium (Synthroid) 112 mcg PO DAILYBB [facility] Stop: 07/19/18 06:29 Last Admin: 06/20/18 06:13 Dose: 112 mcg Magnesium Hydroxide (Milk Of Magnesia) 30 ml PO Q12H PRN PRN Reason: Constipation Stop: 07/18/18 19:38 Magnesium Oxide (Mag-Ox) 400 mg PO DAILY@2100 [facility] Stop: 07/19/18 20:59 Last Admin: 06/19/18 21:07 Dose: 400 mg Menthol (Nice) 1 suman BUCCAL PRN PRN PRN Reason: Cough Stop: 07/19/18 03:52 Last Admin: 06/19/18 04:02 Dose: 1 suman Metoprolol Tartrate (Lopressor) 5 mg IV Q4 PRN PRN Reason: tachycardia, hypertension Stop: 07/18/18 19:38 Miscellaneous (Carbohydrates For Hypoglycemia) 15 - 30 gm PO UD PRN PRN Reason: Hypoglycemia Treatment Stop: 07/18/18 21:49 Multivitamins/Minerals (Multivitamin W/ Minerals Tab) 1 tab PO BID [facility] Stop: 07/18/18 20:59 Last Admin: 06/20/18 09:04 Dose: 1 tab Nebivolol (Bystolic) 5 mg PO DAILY [facility] Stop: 07/19/18 15:44 Last Admin: 06/20/18 09:17 Dose: Not Given Nitroglycerin (Nitrostat) 0.4 mg SL UD PRN PRN Reason: Chest Pain Stop: 07/18/18 19:38 Ondansetron HCl (Zofran) 4 mg IV Q6H PRN PRN Reason: Nausea Stop: 07/19/18 13:04 Last Admin: 06/19/18 21:08 Dose: 4 mg Pantoprazole Sodium (Protonix) 40 mg PO DAILY [facility] Stop: 07/19/18 08:59 Last Admin: 06/20/18 09:05 Dose: 40 mg Polyethylene Glycol (Miralax Powder Packet) 17 gm PO DAILY PRN PRN Reason: Constipation Stop: 07/18/18 19:38 Vitamin B Complex/Folic Acid (Nephrocaps) 1 cap PO DAILY@2100 [facility] Stop: 07/19/18 20:59 Last Admin: 06/19/18 21:09 Dose: 1 cap Vitamin D (Vitamin D3) 2,000 units PO DAILY@2100 [facility] Stop: 07/19/18 20:59 Last Admin: 06/19/18 21:09 Dose: 2,000 units Resident Activity Tracking Resident Involvement: Resident Care Provided Care Provided: Adult Hospital Medicine
[2018-06-20] MEDS: FERROUS SULFATE 325 MG TAB PO SCH (21:24)
[2018-06-20] MEDS: FOLIC ACID 1 MG TAB PO SCH (21:25)
[2018-06-20] MEDS: ATORVASTATIN 40 MG TAB PO SCH (21:26)
[2018-06-20] MEDS: NEPHROCAPS PO SCH (21:28)
[2018-06-20] MEDS: CLOPIDOGREL BISULFATE 75 MG TAB PO SCH (21:28)
[2018-06-20] MEDS: MAGNESIUM OXIDE 400 MG TAB PO SCH (21:28)
[2018-06-20] MEDS: CALCITRIOL 0.25 MCG CAPSULE PO SCH (21:29)
[2018-06-20] MEDS: CHOLECALCIFEROL 1,000 UNITS TAB PO SCH (21:30)
[2018-06-20] MEDS: CYANOCOBALAMIN 500 MCG TABLET (VITAMIN B-12) PO SCH (21:30)
[2018-06-20 21:54] LABS: Partial Thromboplastin Ratio 2.1
[2018-06-20 22:18] LABS: Partial Thromboplastin Time 55.7 Seconds (21.0-31.0)
[2018-06-21] MEDS: LEVOTHYROXINE SODIUM 112 MCG TABLET PO SCH (06:22)
[2018-06-21 07:36] LABS: Hematocrit (blood only) 29.8 % (42-52); Hemoglobin 9.6 g/dL (14.0-18.0); Mean Corpuscular Hgb Conc 32.2 g/dL (32-36); Mean Corpuscular Volume 89.2 fL (80-100); Mean Platelet Volume 9.3 fL (7.4-10.4); Platelet Count 111 K/uL (130-400); RDW Coefficient of Variation 15.4 % (11.5-14.5); RDW Standard Deviation 50.6 fL (36.4-46.3); Red Blood Count 3.34 M/uL (4.7-6.1); White Blood Count 6.94 K/uL (4.8-10.8)
[2018-06-21 07:56] LABS: Partial Thromboplastin Time 52.5 Seconds (21.0-31.0)
[2018-06-21 08:07] LABS: Calcium 8.3 mg/dl (8.5-10.1); Creatinine Clr Calc Pharmacy 21.4 ml/min; Est GFR (African American) 19.6; Est GFR (Non-African American) 16.9; Potassium 4.8 mmol/L (3.5-5.1)
[2018-06-21] MEDS: NEBIVOLOL HCL 5 MG TAB PO SCH (08:51)
[2018-06-21] MEDS: AMLODIPINE BESYLATE 5 MG TAB PO SCH (08:52)
[2018-06-21] MEDS: HEPARIN SODIUM/DEXTROSE 25,000 UNITS/500 ML BAG IV SCH (08:53)
[2018-06-21] MEDS: PANTOprazole 40 MG TAB PO SCH (08:54)
[2018-06-21] MEDS: CEROVITE ADV FORMULA TAB PO SCH ×2 (08:54→20:54)
[2018-06-21] MEDS: SODIUM CHLORIDE 0.9% 1000ML 1,000 ML IV SCH ×2 (09:24→14:05)
[2018-06-21] MEDS: DOXYCYCLINE HYCLATE 100 MG in DEXTROSE 5% 100 ML IV SCH ×2 (09:25→20:58)
[2018-06-21] MEDS ORDERED: POLYETHYLENE (MIRALAX) 17 GM PACK PO PRN (09:40)
[2018-06-21] MEDS: APIXABAN 5 MG TABLET PO SCH ×2 (10:57→20:50)
[2018-06-21] MEDS: cefTRIAXone SODIUM 1,000 MG in DEXTROSE 5% 50 ML IV SCH (13:46)
--- NOTE | 2018-06-21 17:27 | Family Medicine Progress Note ---
Date of Service June 21, 2018 Assessment & Plan (1) Fever and chills: Mr. Blake is a 73yo M with a PMHx of T1DM with neuropathy/retinopathy/ foot ulceration, HTN, CKD, Aflutter w/ pacer, CABG x3 in 1993, and AVR 2012 who presents with cough, fever, and chills worsening over one week. Fever/Chills, Pneumonia vs. Aspiration Pneumonitis - Influzena rapid negative, influenze PCR negative. Prodrome of 4-5 days. Recieved doxy x1 dose in ED. - 37.8*C without leukocytosis in ED - CXR negative, CT-C shows consolidative opacities in the LLL, RML, RLL suggestive of multifocal bronchopneumonia vs aspiration pneumonitis - Sputum cultures unremarkable - Narrowed Pip-Tazo to Ceftriaxone+Doxy as below. Doxy chosen vs Azithromycin given marginal QTp. - Ceftriaxone 1g daily + Doxy 100mg BID, expect total course 5-7 days. Currently on tx day #2 - APAP 650mg Q6H for fever, discomfort Chest Pain, NSTEMI - Mild chest tightness on admit, developed crushing chest pain and ST depressions following DuoNeb. Last cath reviewed by cards, small vessel disease not amenable to stenting. Likely had demand ischemia in the setting of acute illness worsened by the duoneb. Improving with nitro, anticoagulated with apixaban and on clopigrel at baseline. - Initial trop 0.015 worsened to 9.2, 27, 28 downtrended to 18 - Cardiology consulted - Previously on Heparin gtt for 48 hours (until 27 AM), Eliquis resumed after as no plans to cath at this time unless develops recurrent symptoms. - Repeat ECHO 06/19/18: LVEG 60-65%, baseal inferior/inferolateral hypokinesis, normal RV size, mod RV dysfunction, new mod RV dysfunction, normal RV size, mild -mod MR. - Nitro SL PRN, B-lissette as below - On home nebivolol, not on formulary. - Nebivolol 5mg PO daily, taking [employer] med verified by pharmacy; declines conversion to metoprolol during admission. ROMA on CKD - Cr 3.3 from 3.1 with BUN 67 - Suspect hypovolemia in setting of acute illness. Reports he his drinking PO fluids much better today. - IVFM 80cc/hr x1-2 liters - Caution boluses, watch for pulmonary edema given his NSTEMI with mild wall motion change in RV Chronic Kidney Disease, Stage 3 (baseline Cr ~2.1, eGFR 29.1) - d/c furosemide 40mg. No longer taking. - Renally dose medications - Avoid nephrotoxins - BMP,Cr daily Chronic HFpEF - Prior ECHO 02/2018: LVEF 50-55% grade II diastolic dysfunction, LV function normal. Mild concentric LVH. T1DM with peripheral neuropathy - Last A1C 7.3 in February 2018. - Repeat A1C - Continue pt driven insulin pump control. He has maintained good glycemic control independently so far. - Glucose checks AC/HS - BMP daily Atrial Flutter - Amlodipine 2.5mg daily - [employer] nebivolol - Apixaban 5mg BID restarted Hypertension - Amlodipine as above - Not on an LINDA/ARB [employer], consider addition for renoprotection Bronchitis - Avoid albuterol given increased cardiac demand and onset of chest pain as above - Methylprednisolone x5 days - Ipratropium inh Q6-Q8H PRN - CT-C shows multifocal pneumonia, tx as above History of CABGx3 (1993) - Continue Atorvastatin 80mg daily - Clopidogrel 75 for AVR as noted below - Nebivolol as above Aortic Valve Replacement (2012) - Clopidogrel 75mg daily Hypothyroidism - [employer] levothyroxine 112mcg daily Tachycardia (resolved) - Nebivolol as above. DVT Prophylaxsis: Heparin gtt, held Apixaban 2.5mg BID Code: Status Full (2) Chest pain: (3) Diabetic peripheral neuropathy associated with type 1 diabetes mellitus: (4) Atrial flutter: (5) Hx of CABG: (6) Aortic valve replaced: (7) Chronic kidney disease: (8) Hypertension: Supervising Physician Co-Signing Physician Notes Resident Physician Supervision Note: I independently interviewed and examined the patient and verified the gramajo history and physical, reviewed labs and image studies, discussed the case with the resident Dr. Ortega and agree with the findings and care plan. Subjective reports he continues to feel better and stronger today. He is concerned about his kidneys, but overall feels he is improving. Denies chest pain, chest pressure, shortness of breath, difficulty breathing, dyspnea today. He has had no fevers or chills. No rashes. He is peeing okay, no pain. No abdominal pain , nausea, vomiting, diarrhea. He thinks he might be a little bit constipated. No lightheadedness or dizziness, no questions or concerns today. Review of Systems See HPI Physical Exam 2 Vital Signs (Past 24 Hours): Last Vital Signs Temp 36.5 C 06/21/18 14:53 Pulse 75 06/21/18 14:53 Resp 18 06/21/18 14:53 BP 134/81 06/21/18 14:53 Pulse Ox 96 06/21/18 14:53 Physical Exam: General: A&Ox3. NAD. Cooperative. Head: Atraumatic, normocephalic. Pulm: No crackles/rales appreciated. Expiratory wheeze in RLL. Symmetrical chest rise. Cardiac: RRR, -mrg. Radial pulses intact and symmetrical. No JVD appreciated. Abdominal: Nontender, nondistended, soft. BS present. Extremities: trace pretibial edema bilaterally, R>L. Chronic venous stasis changes bilaterally. Results & Data Laboratory Results Abnormal lab results 06/20/18 06/20/18 06/21/18 Range/Units 20:20 21:30 07:27 RBC 3.34 L (4.7-6.1) M/uL Hgb 9.6 L (14.0-18.0) g/dL Hct 29.8 L (42-52) % RDW Std Deviation 50.6 H (36.4-46.3) fL RDW Coeff of Seferino 15.4 H (11.5-14.5) % Plt Count 111 L (130-400) K/uL APTT 55.7 H* (21.0-31.0) Seconds Chloride (98-107) mmol/L Carbon Dioxide (21-32) mmol/L BUN (7-18) mg/dl Creatinine (0.6-1.4) mg/dl Glucose (70-99) mg/dl POC Glucose 179 H (70-99) Calcium (8.5-10.1) mg/dl 06/21/18 06/21/18 06/21/18 Range/Units 07:27 07:27 07:50 RBC (4.7-6.1) M/uL Hgb (14.0-18.0) g/dL Hct (42-52) % RDW Std Deviation (36.4-46.3) fL RDW Coeff of Seferino (11.5-14.5) % Plt Count (130-400) K/uL APTT 52.5 H* (21.0-31.0) Seconds Chloride 108 H (98-107) mmol/L Carbon Dioxide 20 L (21-32) mmol/L BUN 67 H (7-18) mg/dl Creatinine 3.36 H (0.6-1.4) mg/dl Glucose 146 H (70-99) mg/dl POC Glucose 143 H (70-99) Calcium 8.3 L (8.5-10.1) mg/dl 06/21/18 06/21/18 Range/Units 11:47 16:02 RBC (4.7-6.1) M/uL Hgb (14.0-18.0) g/dL Hct (42-52) % RDW Std Deviation (36.4-46.3) fL RDW Coeff of Seferino (11.5-14.5) % Plt Count (130-400) K/uL APTT (21.0-31.0) Seconds Chloride (98-107) mmol/L Carbon Dioxide (21-32) mmol/L BUN (7-18) mg/dl Creatinine (0.6-1.4) mg/dl Glucose (70-99) mg/dl POC Glucose 138 H 128 H (70-99) Calcium (8.5-10.1) mg/dl Medications Administered Current Inpatient Medications Acetaminophen (Tylenol) 650 mg PO Q4H PRN PRN Reason: Pain or Fever Stop: 07/18/18 19:38 Last Admin: 06/20/18 23:56 Dose: 650 mg Al Hydrox/Mg Hydrox/Simethicone (Maalox) 15 ml PO Q4H PRN PRN Reason: Dyspepsia Stop: 07/18/18 19:38 Amlodipine Besylate (Norvasc) 2.5 mg PO DAILY [facility] Stop: 07/19/18 08:59 Last Admin: 06/21/18 08:52 Dose: Not Given Apixaban (Eliquis) 5 mg PO BID [facility] Stop: 07/21/18 09:44 Last Admin: 06/21/18 10:57 Dose: 5 mg Atorvastatin Calcium (Lipitor) 80 mg PO QPM [facility] Stop: 07/18/18 20:59 Last Admin: 06/20/18 21:26 Dose: 80 mg Calcitriol (Racaltrol) 0.5 mcg PO DAILY@2100 [facility] Stop: 07/19/18 20:59 Last Admin: 06/20/18 21:29 Dose: 0.5 mcg Clopidogrel Bisulfate (Plavix) 75 mg PO QPM [facility] Stop: 07/18/18 20:59 Last Admin: 06/20/18 21:28 Dose: 75 mg Cyanocobalamin (Vitamin B-12) 1,000 mcg PO DAILY@2100 [facility] Stop: 07/19/18 20:59 Last Admin: 06/20/18 21:30 Dose: 1,000 mcg Dextrose (Dextrose 50%) 25 - 50 ml IV UD PRN; Protocol PRN Reason: Hypoglycemia Protocol Stop: 07/18/18 21:49 Ferrous Sulfate (Feosol) 325 mg PO DAILY@2100 [facility] Stop: 07/19/18 20:59 Last Admin: 06/20/18 21:24 Dose: 325 mg Folic Acid (Folvite) 1 mg PO DAILY@2100 [facility] Stop: 07/19/18 20:59 Last Admin: 06/20/18 21:25 Dose: 1 mg Furosemide (Lasix) 40 mg PO DAILY [facility] Stop: 07/19/18 08:59 Last Admin: 06/19/18 09:40 Dose: Not Given Glucagon (Glucagen) 1 mg SQ UD PRN; Protocol PRN Reason: Hypoglycemia Protocol Stop: 07/18/18 21:49 Glucose (Glucose 40%) 15 - 30 gm PO UD PRN; Protocol PRN Reason: Hypoglycemia Protocol Stop: 07/18/18 21:49 Glucose (Dex4 Glucose) 4 - 8 tabs PO UD PRN; Protocol PRN Reason: Hypoglycemia Protocol Stop: 07/18/18 21:49 Doxycycline Hyclate 100 mg/ (Dextrose) 110 mls @ 50 mls/hr IV BID [facility]; Protocol Stop: 06/24/18 20:59 Last Infusion: 06/21/18 11:15 Dose: Infused Ceftriaxone Sodium 1,000 mg/ (Dextrose) 50 mls @ 100 mls/hr IV DAILY@1400 [facility]; Protocol Stop: 06/24/18 14:59 Last Infusion: 06/21/18 14:24 Dose: Infused Sodium Chloride (Nss 1000ml) 1,000 mls @ 80 mls/hr IV .[id number] [facility] Stop: 06/22/18 09:44 Last Admin: 06/21/18 14:05 Dose: 80 mls/hr Insulin Human Lispro (Humalog Insulin Pump) 1 ea N/A ANUP [facility]; Protocol Stop: 07/19/18 07:29 Last Admin: 06/21/18 12:04 Dose: Not Given Insulin Human Lispro (Humalog) 0 units SC PRN PRN PRN Reason: Blood Sugar Stop: 07/18/18 21:49 Levothyroxine Sodium (Synthroid) 112 mcg PO DAILYBB [facility] Stop: 07/19/18 06:29 Last Admin: 06/21/18 06:22 Dose: 112 mcg Magnesium Hydroxide (Milk Of Magnesia) 30 ml PO Q12H PRN PRN Reason: Constipation Stop: 07/18/18 19:38 Magnesium Oxide (Mag-Ox) 400 mg PO DAILY@2100 [facility] Stop: 07/19/18 20:59 Last Admin: 06/20/18 21:28 Dose: 400 mg Menthol (Nice) 1 suman BUCCAL PRN PRN PRN Reason: Cough Stop: 07/19/18 03:52 Last Admin: 06/19/18 04:02 Dose: 1 suman Metoprolol Tartrate (Lopressor) 5 mg IV Q4 PRN PRN Reason: tachycardia, hypertension Stop: 07/18/18 19:38 Miscellaneous (Carbohydrates For Hypoglycemia) 15 - 30 gm PO UD PRN PRN Reason: Hypoglycemia Treatment Stop: 07/18/18 21:49 Multivitamins/Minerals (Multivitamin W/ Minerals Tab) 1 tab PO BID [facility] Stop: 07/18/18 20:59 Last Admin: 06/21/18 08:54 Dose: 1 tab Nebivolol (Bystolic) 5 mg PO DAILY [facility] Stop: 07/19/18 15:44 Last Admin: 06/21/18 08:51 Dose: Not Given Nitroglycerin (Nitrostat) 0.4 mg SL UD PRN PRN Reason: Chest Pain Stop: 07/18/18 19:38 Ondansetron HCl (Zofran) 4 mg IV Q6H PRN PRN Reason: Nausea Stop: 07/19/18 13:04 Last Admin: 06/19/18 21:08 Dose: 4 mg Pantoprazole Sodium (Protonix) 40 mg PO DAILY [facility] Stop: 07/19/18 08:59 Last Admin: 06/21/18 08:54 Dose: 40 mg Polyethylene Glycol (Miralax Powder Packet) 17 gm PO DAILY PRN PRN Reason: Constipation Stop: 07/18/18 19:38 Last Admin: 06/21/18 06:22 Dose: 17 gm Vitamin B Complex/Folic Acid (Nephrocaps) 1 cap PO DAILY@2100 [facility] Stop: 07/19/18 20:59 Last Admin: 06/20/18 21:28 Dose: 1 cap Vitamin D (Vitamin D3) 2,000 units PO DAILY@2100 [facility] Stop: 07/19/18 20:59 Last Admin: 06/20/18 21:30 Dose: 2,000 units Resident Activity Tracking Resident Involvement: Resident Care Provided Care Provided: Adult Hospital Medicine
[2018-06-21] MEDS: FERROUS SULFATE 325 MG TAB PO SCH (20:51)
[2018-06-21] MEDS: FOLIC ACID 1 MG TAB PO SCH (20:52)
[2018-06-21] MEDS: ATORVASTATIN 40 MG TAB PO SCH (20:53)
[2018-06-21] MEDS: MAGNESIUM OXIDE 400 MG TAB PO SCH (20:54)
[2018-06-21] MEDS: NEPHROCAPS PO SCH (20:54)
[2018-06-21] MEDS: CLOPIDOGREL BISULFATE 75 MG TAB PO SCH (20:55)
[2018-06-21] MEDS: CALCITRIOL 0.25 MCG CAPSULE PO SCH (20:56)
[2018-06-21] MEDS: CHOLECALCIFEROL 1,000 UNITS TAB PO SCH (20:57)
[2018-06-21] MEDS: CYANOCOBALAMIN 500 MCG TABLET (VITAMIN B-12) PO SCH (20:57)
[2018-06-21] MEDS: ACYCLOVIR 400 MG TAB PO SCH (22:29)
[2018-06-22] MEDS: LEVOTHYROXINE SODIUM 112 MCG TABLET PO SCH (06:20)
[2018-06-22 07:09] LABS: Hematocrit (blood only) 28.9 % (42-52); Hemoglobin 9.6 g/dL (14.0-18.0); Mean Corpuscular Hgb Conc 33.2 g/dL (32-36); Mean Corpuscular Volume 88.4 fL (80-100); Mean Platelet Volume 9.1 fL (7.4-10.4); Platelet Count 116 K/uL (130-400); RDW Coefficient of Variation 15.2 % (11.5-14.5); RDW Standard Deviation 49.7 fL (36.4-46.3); Red Blood Count 3.27 M/uL (4.7-6.1); White Blood Count 7.09 K/uL (4.8-10.8)
[2018-06-22 07:20] LABS: Partial Thromboplastin Ratio 1.5; Partial Thromboplastin Time 38.8 Seconds (21.0-31.0)
[2018-06-22 07:39] LABS: BUN Creatinine Ratio 21.6 (10-20); Calcium 8.4 mg/dl (8.5-10.1); Creatinine Clr Calc Pharmacy 24.8 ml/min; Est GFR (African American) 23.4; Est GFR (Non-African American) 20.1; Potassium 4.8 mmol/L (3.5-5.1)
[2018-06-22] MEDS: AMLODIPINE BESYLATE 5 MG TAB PO SCH (08:31)
[2018-06-22] MEDS: APIXABAN 5 MG TABLET PO SCH ×2 (08:34→21:18)
[2018-06-22] MEDS: NEBIVOLOL HCL 5 MG TAB PO SCH (08:34)
[2018-06-22] MEDS: PANTOprazole 40 MG TAB PO SCH (08:34)
[2018-06-22] MEDS: CEROVITE ADV FORMULA TAB PO SCH ×2 (08:34→21:17)
[2018-06-22] MEDS: DOXYCYCLINE HYCLATE 100 MG in DEXTROSE 5% 100 ML IV SCH ×2 (08:35→20:21)
--- NOTE | 2018-06-22 09:16 | Cardiology Progress Note ---
Date of Service June 22, 2018 Assessment & Plan (1) NSTEMI (non-ST elevated myocardial infarction): He has had no further chest discomfort since shortly after presentation, troponin has trended down and this was probably triggered by his pneumonia, stress from his illness and may be the breathing treatment. At the moment I would not pursue further evaluation. (2) [id number] kidney injury: He developed worsening of his kidney function with an elevated creatinine , that has improved over the last several days. He has received a lot of fluid. (3) CHF (congestive heart failure): He appears to have significant fluid retention, presumably on the basis of his kidney disease and fluid, it does not appear to be on a cardiac basis. He may have some element of diastolic dysfunction but does not have systolic dysfunction. I would try to avoid additional fluid however. I have not ordered diuretics, I will leave that up to the other services. (4) Pacemaker: Clinically his pacemaker is working well, currently AV sequentially pacing. Subjective Events of this admission reviewed. He presented with bronchospasm, received bronchodilators and had a myocardial infarction which appears to be in the distribution of the right coronary artery (due to pacing we cannot determine the location by the electrocardiogram). His troponin peaked at around 18. He also developed acute renal insufficiency, received a lot of fluid and fluid retention. He is feeling better now, over the last day or so his breathing has improved. He has had no further chest discomfort since shortly after his emergency room visit. Physical Exam 2 Vital Signs (Past 24 Hours): Last Vital Signs Temp 37.1 C 06/22/18 07:30 Pulse 75 06/22/18 07:30 Resp 18 06/22/18 07:30 BP 146/85 H 06/22/18 07:30 Pulse Ox 97 06/22/18 07:30 Physical Exam: Constitutional: Alert, cooperative and in no distress. Pulmonary: Rhonchi on auscultation bilaterally. Cardiac: Regular rhythm with good prosthetic valve sounds, no gallop or rub. Abdomen: Soft, nontender with normal bowel sounds. Extremities: +2 bilateral pretibial edema. Skin: No rash, ecchymoses or petechiae.
[2018-06-22] MEDS: cefTRIAXone SODIUM 1,000 MG in DEXTROSE 5% 50 ML IV SCH (14:14)
[2018-06-22] MEDS: SACCHAROMYCES BOULARDII 250 MG CAP PO SCH (14:38)
--- NOTE | 2018-06-22 19:06 | Family Medicine Progress Note ---
Date of Service June 22, 2018 Assessment & Plan (1) Fever and chills: Mr. Blake is a 73yo M with a PMHx of T1DM with neuropathy/retinopathy/ foot ulceration, HTN, CKD, Aflutter w/ pacer, CABG x3 in 1993, and AVR 2012 who presents with cough, fever, and chills worsening over one week. Pneumonia vs. Aspiration Pneumonitis with bronchitis - Influzena rapid negative, influenze PCR negative. Prodrome of 4-5 days. Recieved doxy x1 dose in ED. - 37.8*C without leukocytosis in ED - CXR negative, CT-C shows consolidative opacities in the LLL, RML, RLL suggestive of multifocal bronchopneumonia vs aspiration pneumonitis - Sputum cultures unremarkable - Narrowed Pip-Tazo to Ceftriaxone+Doxy as below. - Ceftriaxone 1g daily + Doxy 100mg BID, expect total course 5-7 days. Currently on tx day #3 - Ipatropium inh Q6-Q8H PRN; avoid albuterol as this precipitated chest pain and increased cardiac demand - Methylprednisolone x 5 days - APAP 650mg Q6H for fever, discomfort Chest Pain, NSTEMI - PT/OT ordered - Mild chest tightness on admit, developed crushing chest pain and ST depressions following DuoNeb. Last cath reviewed by cards, small vessel disease not amenable to stenting. Likely had demand ischemia in the setting of acute illness worsened by the duoneb. Improving with nitro, anticoagulated with apixaban and on clopigrel at baseline. - Initial trop 0.015 worsened to 9.2, 27, 28 downtrended to 18 - Cardiology consulted - Previously on Heparin gtt for 48 hours (until 06/21 AM), Eliquis resumed after as no plans to cath at this time unless develops recurrent symptoms. - Repeat ECHO 06/19/18: LVEG 60-65%, baseal inferior/inferolateral hypokinesis, normal RV size, mod RV dysfunction, new mod RV dysfunction, normal RV size, mild -mod MR. - Nitro SL PRN, B-lissette as below - On home nebivolol, not on formulary. - Nebivolol 5mg PO daily, taking [employer] med verified by pharmacy; declines conversion to metoprolol during admission New onset watery diarrhea -c. diff testing -probiotic ordered. -Immodium if probiotic doesn't relieve symptoms and c.diff negative. Prerenal Azotemia in the setting of known CKD III - Cr 3.3 from 3.1 with BUN 67, baseline Cr 2.1 - Suspect hypovolemia in setting of acute illness - d/c'ed home lasix - Follow BMP and Cr - avoid nephrotoxins Chronic HFpEF - Prior ECHO 02/2018: LVEF 50-55% grade II diastolic dysfunction, LV function normal. Mild concentric LVH. T1DM with peripheral neuropathy - Last A1C 7.3 in February 2018. - Continue pt driven insulin pump control. He has maintained good glycemic control independently so far. - Glucose checks AC/HS - BMP daily Atrial Flutter - Amlodipine 2.5mg daily - [employer] nebivolol--not on formulary here - Anticoagulation with Apixaban 5mg BID Hypertension - Amlodipine as above - Not on an LINDA/ARB [employer], consider addition for renoprotection as an outpatient CAD, history of CABGx3 (1993) - Continue Atorvastatin 80mg daily - Clopidogrel 75 for AVR as noted below - Nebivolol as above Aortic Valve Replacement (2012) - Clopidogrel 75mg daily Hypothyroidism - [employer] levothyroxine 112mcg daily DVT Prophylaxsis: Apixaban 2.5mg BID Code: Status Full (2) Chest pain: (3) Diabetic peripheral neuropathy associated with type 1 diabetes mellitus: (4) Atrial flutter: (5) Hx of CABG: (6) Aortic valve replaced: (7) Chronic kidney disease: (8) Hypertension: Supervising Physician Co-Signing Physician Notes Patient seen and examined at the bedside with Dr. Lee Agree with history, exam findings, assessment and plan as outlined with the following changes/ updates: In brief, Mr Blake is a 73 year old type 1 diabetic with hx of CAD, neuropathy, HTN, HFpEF admitted with pneumonia. Doing well. Still coughing up brown mucus. Reports loose stools for several days now. No new fevers. Usually takes a probiotic, requesting to use a probiotic here. VS and labs reviewed. He is breathing comfortably on room air. There are coarse breath sounds throughout. 1. pneumonia. continue ceftriaxone and doxy, steroids, and ipatropium. no beta agonists given the increased cardiac demand and prior episode of CP. 2. NSTEMI following beta agonist administration. CP resolved. trops down trending. Restarted apixiban. On beta-lissette. 3. prerenal azotemia in the setting of CKD. Cr improving. encouraged po intake. 4. diarrhea. check c. diff. start probiotic. if c. diff negative, ok to use imodium. Dispo: awaiting clinical improvement and will transition to oral abx. Subjective Mr. Blake states that he has some new onset foul watery diarrhea and is requesting probiotics. Chest pain has resolved. Physical Exam 2 Vital Signs (Past 24 Hours): Last Vital Signs Temp 36.6 C 06/22/18 17:18 Pulse 75 06/22/18 17:18 Resp 18 06/22/18 17:18 BP 125/75 06/22/18 17:18 Pulse Ox 99 06/22/18 17:18 General: Alert, oriented. No acute distress HEENT: NC/AT, PERRL, EOMI, oropharynx moist. Chest: Nontender to palpation. CV: Irregularly irregular. No murmurs appreciated Resp: Coarse breath sounds with some scattered wheezing on right. Extremities: Trace edema in lower extremities bilaterally. Results & Data Laboratory Results Laboratory Results - last 24 hr 06/22/18 06/22/18 06/22/18 06:49 06:49 06:49 WBC 7.09 RBC 3.27 L Hgb 9.6 L Hct 28.9 L MCV 88.4 MCH 29.4 MCHC 33.2 RDW Std Deviation 49.7 H RDW Coeff of Seferino 15.2 H Plt Count 116 L MPV 9.1 APTT 38.8 H PTT Ratio 1.5 Sodium 138 Potassium 4.8 Chloride 110 H Carbon Dioxide 18 L Anion Gap 10.0 BUN 63 H Creatinine 2.91 H D Est Cr Clr Drug Dosing 24.8 Est GFR ( Amer) 23.4 Est GFR (Non-Af Amer) 20.1 BUN/Creatinine Ratio 21.6 H Glucose 147 H Calcium 8.4 L Medications Administered Home Medications amlodipine 2.5 mg tablet 2.5 mg PO DAILY 04/07/18 [History Confirmed 06/18/18] apixaban 5 mg tablet 5 mg PO BID 04/07/18 [History Confirmed 06/18/18] atorvastatin 80 mg tablet 80 mg PO QPM 04/07/18 [History Confirmed 06/18/18] calcitriol 0.5 mcg capsule 0.5 mcg PO DAILY 04/07/18 [History Confirmed 06/18/18 ] cholecalciferol (vitamin D3) 2,000 unit capsule 2,000 units PO DAILY 04/07/18 [ History Confirmed 06/18/18] clopidogrel 75 mg tablet 75 mg PO QPM tab 04/07/18 [History Confirmed 06/18/18] cyanocobalamin (vitamin B-12) 1,000 mcg capsule 1,000 mcg PO DAILY 04/07/18 [ History Confirmed 06/18/18] ferrous sulfate 325 mg (65 mg iron) tablet 325 mg PO DAILY tab 04/07/18 [ History Confirmed 06/18/18] folic acid 1 mg tablet 1 mg PO DAILY 04/07/18 [History Confirmed 06/18/18] furosemide 40 mg tablet 40 mg PO DAILY 04/07/18 [History Confirmed 06/18/18] levothyroxine 112 mcg capsule 112 mcg PO DAILY 04/07/18 [History Confirmed 06/18] magnesium oxide 400 mg capsule 400 mg PO DAILY cap 04/07/18 [History Confirmed 06/18/18] nebivolol 5 mg tablet 0 mg PO DIRECTED PRN tab 04/07/18 [History Confirmed 05/05/18] nitroglycerin 0.4 mg sublingual tablet 0.4 mg SL Q5M PRN 04/07/18 [History Confirmed 06/18/18] pantoprazole 40 mg tablet,delayed release 40 mg PO DAILY 04/07/18 [History Confirmed 06/18/18] vitamin B complex and vitamin C no.20-folic acid 1 mg capsule 1 cap PO DAILY [History Confirmed 06/18/18] insulin lispro [Humalog U-100 Insulin] 1 sliding scale dose SUBCUT UD 06/18/18 [ History Confirmed 06/18/18] vitamins A,C,E-ohlb-tajbil [PreserVision AREDS] 1 tab PO BID 06/18/18 [History Confirmed 06/18/18] Active Medications Acetaminophen (Tylenol) 650 mg PO Q4H PRN PRN Reason: Pain or Fever Stop: 07/18/18 19:38 Last Admin: 06/20/18 23:56 Dose: 650 mg Acyclovir (Zovirax) 400 mg PO QPM JOSÉ MIGUEL Stop: 07/21/18 21:34 Last Admin: 06/21/18 22:29 Dose: 400 mg Al Hydrox/Mg Hydrox/Simethicone (Maalox) 15 ml PO Q4H PRN PRN Reason: Dyspepsia Stop: 07/18/18 19:38 Amlodipine Besylate (Norvasc) 2.5 mg PO DAILY [facility] Stop: 07/19/18 08:59 Last Admin: 06/22/18 08:31 Dose: Not Given Apixaban (Eliquis) 5 mg PO BID [facility] Stop: 07/21/18 09:44 Last Admin: 06/22/18 08:34 Dose: 5 mg Atorvastatin Calcium (Lipitor) 80 mg PO QPM [facility] Stop: 07/18/18 20:59 Last Admin: 06/21/18 20:53 Dose: 80 mg Calcitriol (Racaltrol) 0.5 mcg PO DAILY@2099 [facility] Stop: 07/19/18 20:59 Last Admin: 06/21/18 20:56 Dose: 0.5 mcg Clopidogrel Bisulfate (Plavix) 75 mg PO QPM [facility] Stop: 07/18/18 20:59 Last Admin: 06/21/18 20:55 Dose: 75 mg Cyanocobalamin (Vitamin B-12) 1,000 mcg PO DAILY@2099 [facility] Stop: 07/19/18 20:59 Last Admin: 06/21/18 20:57 Dose: 1,000 mcg Dextrose (Dextrose 50%) 25 - 50 ml IV UD PRN; Protocol PRN Reason: Hypoglycemia Protocol Stop: 07/18/18 21:49 Ferrous Sulfate (Feosol) 325 mg PO DAILY@2099 [facility] Stop: 07/19/18 20:59 Last Admin: 06/21/18 20:51 Dose: 325 mg Folic Acid (Folvite) 1 mg PO DAILY@2099 [facility] Stop: 07/19/18 20:59 Last Admin: 06/21/18 20:52 Dose: 1 mg Furosemide (Lasix) 40 mg PO DAILY [facility] Stop: 07/19/18 08:59 Last Admin: 06/19/18 09:40 Dose: Not Given Glucagon (Glucagen) 1 mg SQ UD PRN; Protocol PRN Reason: Hypoglycemia Protocol Stop: 07/18/18 21:49 Glucose (Glucose 40%) 15 - 30 gm PO UD PRN; Protocol PRN Reason: Hypoglycemia Protocol Stop: 07/18/18 21:49 Glucose (Dex4 Glucose) 4 - 8 tabs PO UD PRN; Protocol PRN Reason: Hypoglycemia Protocol Stop: 07/18/18 21:49 Doxycycline Hyclate 100 mg/ (Dextrose) 110 mls @ 50 mls/hr IV BID [facility]; Protocol Stop: 06/24/18 20:59 Last Infusion: 06/22/18 10:52 Dose: Infused Ceftriaxone Sodium 1,000 mg/ (Dextrose) 50 mls @ 100 mls/hr IV DAILY@1400 [facility]; Protocol Stop: 06/24/18 14:59 Last Infusion: 06/22/18 15:26 Dose: Infused Insulin Human Lispro (Humalog Insulin Pump) 1 ea N/A ACHS [facility]; Protocol Stop: 07/19/18 07:29 Last Admin: 06/22/18 16:18 Dose: Not Given Insulin Human Lispro (Humalog) 0 units SC PRN PRN PRN Reason: Blood Sugar Stop: 07/18/18 21:49 Levothyroxine Sodium (Synthroid) 112 mcg PO DAILYBB [facility] Stop: 07/19/18 06:29 Last Admin: 06/22/18 06:20 Dose: 112 mcg Magnesium Hydroxide (Milk Of Magnesia) 30 ml PO Q12H PRN PRN Reason: Constipation Stop: 07/18/18 19:38 Magnesium Oxide (Mag-Ox) 400 mg PO DAILY@2100 [facility] Stop: 07/19/18 20:59 Last Admin: 06/21/18 20:54 Dose: 400 mg Menthol (Nice) 1 suman BUCCAL PRN PRN PRN Reason: Cough Stop: 07/19/18 03:52 Last Admin: 06/19/18 04:02 Dose: 1 suman Metoprolol Tartrate (Lopressor) 5 mg IV Q4 PRN PRN Reason: tachycardia, hypertension Stop: 07/18/18 19:38 Miscellaneous (Carbohydrates For Hypoglycemia) 15 - 30 gm PO UD PRN PRN Reason: Hypoglycemia Treatment Stop: 07/18/18 21:49 Multivitamins/Minerals (Multivitamin W/ Minerals Tab) 1 tab PO BID [facility] Stop: 07/18/18 20:59 Last Admin: 06/22/18 08:34 Dose: 1 tab Nebivolol (Bystolic) 5 mg PO DAILY [facility] Stop: 07/19/18 15:44 Last Admin: 06/22/18 08:34 Dose: 2.5 mg Nitroglycerin (Nitrostat) 0.4 mg SL UD PRN PRN Reason: Chest Pain Stop: 07/18/18 19:38 Ondansetron HCl (Zofran) 4 mg IV Q6H PRN PRN Reason: Nausea Stop: 07/19/18 13:04 Last Admin: 06/19/18 21:08 Dose: 4 mg Pantoprazole Sodium (Protonix) 40 mg PO DAILY [facility] Stop: 07/19/18 08:59 Last Admin: 06/22/18 08:34 Dose: 40 mg Polyethylene Glycol (Miralax Powder Packet) 17 gm PO DAILY PRN PRN Reason: Constipation Stop: 07/18/18 19:38 Last Admin: 06/21/18 06:22 Dose: 17 gm Saccharomyces Boulardii (Florastor) 250 mg PO DAILY [facility] Stop: 07/22/18 13:59 Last Admin: 06/22/18 14:38 Dose: 250 mg Vitamin B Complex/Folic Acid (Nephrocaps) 1 cap PO DAILY@2100 [facility] Stop: 07/19/18 20:59 Last Admin: 06/21/18 20:54 Dose: 1 cap Vitamin D (Vitamin D3) 2,000 units PO DAILY@2100 [facility] Stop: 07/19/18 20:59 Last Admin: 06/21/18 20:57 Dose: 2,000 units
[2018-06-22] MEDS: ATORVASTATIN 40 MG TAB PO SCH (20:27)
[2018-06-22] MEDS: CYANOCOBALAMIN 500 MCG TABLET (VITAMIN B-12) PO SCH (20:27)
[2018-06-22] MEDS: FOLIC ACID 1 MG TAB PO SCH (20:27)
[2018-06-22] MEDS: FERROUS SULFATE 325 MG TAB PO SCH ×2 (20:28→20:34)
[2018-06-22] MEDS: NEPHROCAPS PO SCH (20:28)
[2018-06-22] MEDS: CALCITRIOL 0.25 MCG CAPSULE PO SCH (20:29)
[2018-06-22] MEDS: CHOLECALCIFEROL 1,000 UNITS TAB PO SCH (20:29)
[2018-06-22] MEDS: MAGNESIUM OXIDE 400 MG TAB PO SCH (20:31)
[2018-06-22] MEDS: CLOPIDOGREL BISULFATE 75 MG TAB PO SCH (20:32)
[2018-06-22] MEDS: ACYCLOVIR 400 MG TAB PO SCH (22:02)
[2018-06-23] MEDS: LEVOTHYROXINE SODIUM 112 MCG TABLET PO SCH (06:19)
[2018-06-23 07:48] LABS: Hematocrit (blood only) 27.4 % (42-52); Mean Corpuscular Hgb Conc 32.8 g/dL (32-36); Mean Corpuscular Volume 88.1 fL (80-100); Mean Platelet Volume 9.3 fL (7.4-10.4); Platelet Count 114 K/uL (130-400); RDW Coefficient of Variation 15.3 % (11.5-14.5); RDW Standard Deviation 49.4 fL (36.4-46.3); Red Blood Count 3.11 M/uL (4.7-6.1); White Blood Count 7.27 K/uL (4.8-10.8)
[2018-06-23] MEDS: AMLODIPINE BESYLATE 5 MG TAB PO SCH ×2 (07:55→08:03)
[2018-06-23 07:56] LABS: Partial Thromboplastin Ratio 1.4; Partial Thromboplastin Time 36.6 Seconds (21.0-31.0)
[2018-06-23] MEDS: APIXABAN 5 MG TABLET PO SCH ×2 (07:56→21:14)
[2018-06-23] MEDS: CEROVITE ADV FORMULA TAB PO SCH ×2 (07:56→21:15)
[2018-06-23] MEDS: NEBIVOLOL HCL 5 MG TAB PO SCH ×4 (07:57→23:45)
[2018-06-23] MEDS: SACCHAROMYCES BOULARDII 250 MG CAP PO SCH (07:57)
[2018-06-23] MEDS: DOXYCYCLINE HYCLATE 100 MG in DEXTROSE 5% 100 ML IV SCH (08:01)
[2018-06-23 08:21] LABS: Calcium 8.8 mg/dl (8.5-10.1); Creatinine Clr Calc Pharmacy 25.9 ml/min; Est GFR (African American) 24.7; Est GFR (Non-African American) 21.3; Potassium 4.6 mmol/L (3.5-5.1)
[2018-06-23] MEDS: PANTOprazole 40 MG TAB PO SCH (08:27)
[2018-06-23] MEDS: cefTRIAXone SODIUM 1,000 MG in DEXTROSE 5% 50 ML IV SCH (14:25)
--- NOTE | 2018-06-23 16:56 | Family Medicine Progress Note ---
Date of Service June 23, 2018 Assessment & Plan (1) Fever and chills: Mr. Blake is a 73yo M with a PMHx of T1DM with neuropathy/retinopathy/ foot ulceration, HTN, CKD, Aflutter w/ pacer, CABG x3 in 1993, and AVR 2012 who presents with cough, fever, and chills worsening over one week. Fever/Chills, Pneumonia vs. Aspiration Pneumonitis -Meds switched from IV Rocephin and Doxy today to PO cefuroxime and PO doxy for an additional 5 days of treatment. - Influzena rapid negative, influenze PCR negative. Prodrome of 4-5 days. Recieved doxy x1 dose in ED. - 37.8*C without leukocytosis in ED - CXR negative, CT-C shows consolidative opacities in the LLL, RML, RLL suggestive of multifocal bronchopneumonia vs aspiration pneumonitis - Sputum cultures unremarkable - Narrowed Pip-Tazo to Ceftriaxone+Doxy as below. Doxy chosen vs Azithromycin given marginal QTp. - APAP 650mg Q6H for fever, discomfort Chest Pain, NSTEMI -PT/OT ordered - Mild chest tightness on admit, developed crushing chest pain and ST depressions following DuoNeb. Last cath reviewed by cards, small vessel disease not amenable to stenting. Likely had demand ischemia in the setting of acute illness worsened by the duoneb. Improving with nitro, anticoagulated with apixaban and on clopigrel at baseline. - Initial trop 0.015 worsened to 9.2, 27, 28 downtrended to 18 - Cardiology consulted - Previously on Heparin gtt for 48 hours (until 06/21 AM), Eliquis resumed after as no plans to cath at this time unless develops recurrent symptoms. - Repeat ECHO 06/19/18: LVEG 60-65%, baseal inferior/inferolateral hypokinesis, normal RV size, mod RV dysfunction, new mod RV dysfunction, normal RV size, mild -mod MR. - Nitro SL PRN, B-lissette as below - On home nebivolol, not on formulary. - Nebivolol 5mg PO daily, taking HIDE OR SKIN BUFFER med verified by pharmacy; declines conversion to metoprolol during admission New onset watery diarrhea-RESOLVING -c. diff testing -probiotic ordered. -Immodium if probiotic doesn't relieve symptoms. Prerenal Azotemia - Suspect hypovolemia in setting of acute illness. Reports he his drinking PO fluids much better today. - IVFM 80cc/hr x1-2 liters - Caution boluses, watch for pulmonary edema given his NSTEMI with mild wall motion change in RV Chronic HFpEF - Prior ECHO 02/2018: LVEF 50-55% grade II diastolic dysfunction, LV function normal. Mild concentric LVH. T1DM with peripheral neuropathy - Last A1C 7.3 in February 2018. - Repeat A1C - Continue pt driven insulin pump control. He has maintained good glycemic control independently so far. - Glucose checks AC/HS - BMP daily Atrial Flutter - Amlodipine 2.5mg daily - HIDE OR SKIN BUFFER nebivolol - Apixaban 5mg BID restarted Chronic Kidney Disease, Stage 3 (baseline Cr ~2.1, eGFR 29.1) - d/c furosemide 40mg. No longer taking. - Renally dose medications - Avoid nephrotoxins - BMP,Cr daily Hypertension - Amlodipine as above - Not on an LINDA/ARB HIDE OR SKIN BUFFER, consider addition for renoprotection Bronchitis - Avoid albuterol given increased cardiac demand and onset of chest pain as above - Methylprednisolone x5 days - Ipratropium inh Q6-Q8H PRN - CT-C shows multifocal pneumonia, tx as above History of CABGx3 (1993) - Continue Atorvastatin 80mg daily - Clopidogrel 75 for AVR as noted below - Nebivolol as above Aortic Valve Replacement (2012) - Clopidogrel 75mg daily Hypothyroidism - HIDE OR SKIN BUFFER levothyroxine 112mcg daily Tachycardia (resolved) - Nebivolol as above. 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 Lee Agree with history, exam findings, assessment and plan as outlined with the following changes/ updates: In brief, Mr Blake is a 73 year old type 1 diabetic with hx of CAD, neuropathy, HTN, HFpEF admitted with pneumonia. Doing well. Still coughing up brown mucus. Reports loose stools for several days now. No new fevers. Usually takes a probiotic, requesting to use a probiotic here. VS and labs reviewed. He is breathing comfortably on room air. There are coarse breath sounds throughout. 1. pneumonia. switch to oral cefuroxime and doxy, steroids, and ipatropium. no beta agonists given the increased cardiac demand and prior episode of CP. 2. NSTEMI following beta agonist administration. CP resolved. trops down trending. Restarted apixiban. On home beta-lissette. 3. prerenal azotemia in the setting of CKD. Cr improving. encouraged po intake. 4. diarrhea--improved. continue probiotic. Dispo: If continues to improve, possible discharge tomorrow. Subjective Mr. Blake states that his watery bowel movements are seemingly resolving. Also requesting that he use his home HTN meds instead of the amlodipine being offered. Denies chest pain currently or SOB. Review of Systems All systems reviewed & are unremarkable except as noted in HPI & below Physical Exam 2 Vital Signs (Past 24 Hours): Last Vital Signs Temp 36.5 C 06/23/18 15:18 Pulse 80 06/23/18 15:18 Resp 18 06/23/18 15:18 BP 156/84 H 06/23/18 15:18 Pulse Ox 97 06/23/18 15:18 General: Alert, oriented. No acute distress HEENT: NC/AT, PERRL, EOMI, oropharynx moist. Chest: Nontender to palpation. CV: Irregularly irregular. No murmurs appreciated Resp: Coarse breath sounds with some scattered wheezing on right. Extremities: Trace edema in lower extremities bilaterally. Results & Data Laboratory Results Laboratory Results - last 24 hr 06/23/18 06/23/18 06/23/18 07:32 07:32 07:32 WBC 7.27 RBC 3.11 L Hgb 9.0 L Hct 27.4 L MCV 88.1 MCH 28.9 MCHC 32.8 RDW Std Deviation 49.4 H RDW Coeff of Seferino 15.3 H Plt Count 114 L MPV 9.3 APTT 36.6 H PTT Ratio 1.4 Sodium 141 Potassium 4.6 Chloride 113 H Carbon Dioxide 19 L Anion Gap 8.0 BUN 61 H Creatinine 2.78 H Est Cr Clr Drug Dosing 25.9 Est GFR ( Amer) 24.7 Est GFR (Non-Af Amer) 21.3 BUN/Creatinine Ratio 22.0 H Glucose 136 H Calcium 8.8 Medications Administered Home Medications amlodipine 2.5 mg tablet 2.5 mg PO DAILY 04/07/18 [History Confirmed 06/18/18] apixaban 5 mg tablet 5 mg PO BID 04/07/18 [History Confirmed 06/18/18] atorvastatin 80 mg tablet 80 mg PO QPM 04/07/18 [History Confirmed 06/18/18] calcitriol 0.5 mcg capsule 0.5 mcg PO DAILY 04/07/18 [History Confirmed 06/18/18 ] cholecalciferol (vitamin D3) 2,000 unit capsule 2,000 units PO DAILY 04/07/18 [ History Confirmed 06/18/18] clopidogrel 75 mg tablet 75 mg PO QPM tab 04/07/18 [History Confirmed 06/18/18] cyanocobalamin (vitamin B-12) 1,000 mcg capsule 1,000 mcg PO DAILY 04/07/18 [ History Confirmed 06/18/18] ferrous sulfate 325 mg (65 mg iron) tablet 325 mg PO DAILY tab 04/07/18 [ History Confirmed 06/18/18] folic acid 1 mg tablet 1 mg PO DAILY 04/07/18 [History Confirmed 06/18/18] furosemide 40 mg tablet 40 mg PO DAILY 04/07/18 [History Confirmed 06/18/18] levothyroxine 112 mcg capsule 112 mcg PO DAILY 04/07/18 [History Confirmed 06/18] magnesium oxide 400 mg capsule 400 mg PO DAILY cap 04/07/18 [History Confirmed 06/18/18] nebivolol 5 mg tablet 0 mg PO DIRECTED PRN tab 04/07/18 [History Confirmed 05/05/18] nitroglycerin 0.4 mg sublingual tablet 0.4 mg SL Q5M PRN 04/07/18 [History Confirmed 06/18/18] pantoprazole 40 mg tablet,delayed release 40 mg PO DAILY 04/07/18 [History Confirmed 06/18/18] vitamin B complex and vitamin C no.20-folic acid 1 mg capsule 1 cap PO DAILY [History Confirmed 06/18/18] insulin lispro [Humalog U-100 Insulin] 1 sliding scale dose SUBCUT UD 06/18/18 [ History Confirmed 06/18/18] vitamins A,C,W-knnf-hyvpih [PreserVision AREDS] 1 tab PO BID 06/18/18 [History Confirmed 06/18/18] Active Medications Acetaminophen (Tylenol) 650 mg PO Q4H PRN PRN Reason: Pain or Fever Stop: 07/18/18 19:38 Last Admin: 06/20/18 23:56 Dose: 650 mg Acyclovir (Zovirax) 400 mg PO QPM JOSÉ MIGUEL Stop: 07/21/18 21:34 Last Admin: 06/22/18 22:02 Dose: 400 mg Al Hydrox/Mg Hydrox/Simethicone (Maalox) 15 ml PO Q4H PRN PRN Reason: Dyspepsia Stop: 07/18/18 19:38 Apixaban (Eliquis) 5 mg PO BID [facility] Stop: 07/21/18 09:44 Last Admin: 06/23/18 07:56 Dose: 5 mg Atorvastatin Calcium (Lipitor) 80 mg PO QPM [facility] Stop: 07/18/18 20:59 Last Admin: 06/22/18 20:27 Dose: 80 mg Calcitriol (Racaltrol) 0.5 mcg PO DAILY@2099 [facility] Stop: 07/19/18 20:59 Last Admin: 06/22/18 20:29 Dose: 0.5 mcg Clopidogrel Bisulfate (Plavix) 75 mg PO QPM [facility] Stop: 07/18/18 20:59 Last Admin: 06/22/18 20:32 Dose: 75 mg Cyanocobalamin (Vitamin B-12) 1,000 mcg PO DAILY@2099 [facility] Stop: 07/19/18 20:59 Last Admin: 06/22/18 20:27 Dose: 1,000 mcg Dextrose (Dextrose 50%) 25 - 50 ml IV UD PRN; Protocol PRN Reason: Hypoglycemia Protocol Stop: 07/18/18 21:49 Ferrous Sulfate (Feosol) 325 mg PO DAILY@2099 [facility] Stop: 07/19/18 20:59 Last Admin: 06/22/18 20:34 Dose: Not Given Folic Acid (Folvite) 1 mg PO DAILY@2099 [facility] Stop: 07/19/18 20:59 Last Admin: 06/22/18 20:27 Dose: 1 mg Furosemide (Lasix) 40 mg PO DAILY JOSÉ MIGUEL Stop: 07/19/18 08:59 Last Admin: 06/19/18 09:40 Dose: Not Given Glucagon (Glucagen) 1 mg SQ UD PRN; Protocol PRN Reason: Hypoglycemia Protocol Stop: 07/18/18 21:49 Glucose (Glucose 40%) 15 - 30 gm PO UD PRN; Protocol PRN Reason: Hypoglycemia Protocol Stop: 07/18/18 21:49 Glucose (Dex4 Glucose) 4 - 8 tabs PO UD PRN; Protocol PRN Reason: Hypoglycemia Protocol Stop: 07/18/18 21:49 Doxycycline Hyclate 100 mg/ (Dextrose) 110 mls @ 50 mls/hr IV BID JOSÉ MIGUEL; Protocol Stop: 06/24/18 20:59 Last Infusion: 06/23/18 10:21 Dose: Infused Ceftriaxone Sodium 1,000 mg/ (Dextrose) 50 mls @ 100 mls/hr IV DAILY@1400 JOSÉ MIGUEL; Protocol Stop: 06/24/18 14:59 Last Infusion: 06/23/18 15:09 Dose: Infused Insulin Human Lispro (Humalog Insulin Pump) 1 ea N/A ACHS [facility]; Protocol Stop: 07/19/18 07:29 Last Admin: 06/23/18 13:32 Dose: 1 ea Insulin Human Lispro (Humalog) 0 units SC PRN PRN PRN Reason: Blood Sugar Stop: 07/18/18 21:49 Levothyroxine Sodium (Synthroid) 112 mcg PO DAILYBB JOSÉ MIGUEL Stop: 07/19/18 06:29 Last Admin: 06/23/18 06:19 Dose: 112 mcg Magnesium Hydroxide (Milk Of Magnesia) 30 ml PO Q12H PRN PRN Reason: Constipation Stop: 07/18/18 19:38 Magnesium Oxide (Mag-Ox) 400 mg PO DAILY@2100 JOSÉ MIGUEL Stop: 07/19/18 20:59 Last Admin: 06/22/18 20:31 Dose: 400 mg Menthol (Nice) 1 suman BUCCAL PRN PRN PRN Reason: Cough Stop: 07/19/18 03:52 Last Admin: 06/19/18 04:02 Dose: 1 suman Metoprolol Tartrate (Lopressor) 5 mg IV Q4 PRN PRN Reason: tachycardia, hypertension Stop: 07/18/18 19:38 Miscellaneous (Carbohydrates For Hypoglycemia) 15 - 30 gm PO UD PRN PRN Reason: Hypoglycemia Treatment Stop: 07/18/18 21:49 Multivitamins/Minerals (Multivitamin W/ Minerals Tab) 1 tab PO BID [facility] Stop: 07/18/18 20:59 Last Admin: 06/23/18 07:56 Dose: 1 tab Nebivolol (Bystolic) 5 mg PO DAILY [facility] Stop: 07/19/18 15:44 Last Admin: 06/23/18 10:27 Dose: 5 mg Nitroglycerin (Nitrostat) 0.4 mg SL UD PRN PRN Reason: Chest Pain Stop: 07/18/18 19:38 Ondansetron HCl (Zofran) 4 mg IV Q6H PRN PRN Reason: Nausea Stop: 07/19/18 13:04 Last Admin: 06/19/18 21:08 Dose: 4 mg Pantoprazole Sodium (Protonix) 40 mg PO DAILY [facility] Stop: 07/19/18 08:59 Last Admin: 06/23/18 08:27 Dose: 40 mg Polyethylene Glycol (Miralax Powder Packet) 17 gm PO DAILY PRN PRN Reason: Constipation Stop: 07/18/18 19:38 Last Admin: 06/21/18 06:22 Dose: 17 gm Saccharomyces Boulardii (Florastor) 250 mg PO DAILY [facility] Stop: 07/22/18 13:59 Last Admin: 06/23/18 07:57 Dose: 250 mg Vitamin B Complex/Folic Acid (Nephrocaps) 1 cap PO DAILY@2100 [facility] Stop: 07/19/18 20:59 Last Admin: 06/22/18 20:28 Dose: 1 cap Vitamin D (Vitamin D3) 2,000 units PO DAILY@2100 [facility] Stop: 07/19/18 20:59 Last Admin: 06/22/18 20:29 Dose: 2,000 units
[2018-06-23] MEDS: ATORVASTATIN 40 MG TAB PO SCH (21:14)
[2018-06-23] MEDS: FERROUS SULFATE 325 MG TAB PO SCH (21:14)
[2018-06-23] MEDS: CYANOCOBALAMIN 500 MCG TABLET (VITAMIN B-12) PO SCH (21:14)
[2018-06-23] MEDS: FOLIC ACID 1 MG TAB PO SCH (21:14)
[2018-06-23] MEDS: NEPHROCAPS PO SCH (21:15)
[2018-06-23] MEDS: CLOPIDOGREL BISULFATE 75 MG TAB PO SCH (21:15)
[2018-06-23] MEDS: MAGNESIUM OXIDE 400 MG TAB PO SCH (21:15)
[2018-06-23] MEDS: CALCITRIOL 0.25 MCG CAPSULE PO SCH (21:15)
[2018-06-23] MEDS: DOXYCYCLINE HYCLATE 100 MG CAP PO SCH (21:16)
[2018-06-23] MEDS: ACYCLOVIR 400 MG TAB PO SCH (21:16)
[2018-06-23] MEDS: CHOLECALCIFEROL 1,000 UNITS TAB PO SCH (21:16)
[2018-06-24] MEDS: LEVOTHYROXINE SODIUM 112 MCG TABLET PO SCH (06:20)
[2018-06-24 07:16] LABS: Hematocrit (blood only) 29.8 % (42-52); Hemoglobin 9.7 g/dL (14.0-18.0); Mean Corpuscular Hgb Conc 32.6 g/dL (32-36); Mean Corpuscular Volume 88.2 fL (80-100); Mean Platelet Volume 9.1 fL (7.4-10.4); Platelet Count 143 K/uL (130-400); RDW Coefficient of Variation 15.4 % (11.5-14.5); RDW Standard Deviation 49.8 fL (36.4-46.3); Red Blood Count 3.38 M/uL (4.7-6.1); White Blood Count 9.06 K/uL (4.8-10.8)
[2018-06-24 07:37] LABS: Partial Thromboplastin Ratio 1.3; Partial Thromboplastin Time 33.4 Seconds (21.0-31.0)
[2018-06-24] MEDS: DOXYCYCLINE HYCLATE 100 MG CAP PO SCH (07:45)
[2018-06-24] MEDS: PANTOprazole 40 MG TAB PO SCH (07:46)
[2018-06-24] MEDS: NEBIVOLOL HCL 5 MG TAB PO SCH (07:46)
[2018-06-24] MEDS: CEROVITE ADV FORMULA TAB PO SCH (07:47)
[2018-06-24] MEDS: APIXABAN 5 MG TABLET PO SCH (07:47)
[2018-06-24] MEDS: SACCHAROMYCES BOULARDII 250 MG CAP PO SCH (07:47)
[2018-06-24 07:50] LABS: BUN Creatinine Ratio 22.8 (10-20); Calcium 8.9 mg/dl (8.5-10.1); Creatinine Clr Calc Pharmacy 28.3 ml/min; Est GFR (African American) 27.4; Est GFR (Non-African American) 23.6; Potassium 4.9 mmol/L (3.5-5.1)
[2018-06-24] MEDS ORDERED: cefUROXime axetil 500 MG TAB PO SCH (08:00)
[2018-06-24] MEDS ORDERED: NEBIVOLOL PO PRN (13:00)
--- NOTE | 2018-06-25 19:11 | Discharge Summary ---
Date of Service June 25, 2018 Admission HPI Per Admitting Provider Talon is a 73-year-old male with a past medical history of diabetes mellitus, hypertension, chronic kidney disease, atrial flutter status post pacemaker placement, CABG x3 in 1993, AVR in 2012, Who presents with several days of chills, sinus congestion, cough, weakness, and feelings of malaise. He reports his symptoms began this past Friday over the weekend. Symptoms began with sinus drainage, cough, and sputum production. He feels that his symptoms gradually worsened and he began to develop chills and night sweats in the past few days. He knows he would have come to the hospital yesterday, but could not due to icy weather. He endorses a decreased appetite but denies nausea, vomiting, diarrhea, constipation. Decreased p.o. intake overall. He has also developed a persistent headache at the base of his neck, achy in quality and worse when he coughs. No photosensitivity, photosensitivity, rash. He endorses a feeling of chest tightness bilaterally across the top of his chest which disappeared when he got to the ED. Denies arm pain. Denies feelings of chest pain or chest pressure. Endorses shortness of breath when coughing and mild difficulty breathing due to congestion, but no shortness of breath at rest. He notes his cough is constant and seems to be worsening, occasional sputum production greenish. He was diagnosed with diabetes in his 30s, has been told he is a type I rather than type II diabetic and is managed with an insulin pump and continuous glucose monitoring. He is followed by Dr. Hurtado. He was originally diagnosed with diabetes in his 30s, and has had multiple complications including diabetic retinopathy with macular edema, neuropathy, nephropathy, coronary artery disease , peripheral artery disease, and carotid stenosis. He underwent gastric bypass in 1999 secondary to increasing insulin resistance with an element of lipohypertrophy. He has some swelling in his legs at baseline, feels he is not holding extra fluid currently and that they are at her normal baseline today. Notes that the right leg tends to be a little bit more swollen than the left since they took his right saphenous for his bypass surgery. No history of repeated infections. No known drug allergies. No known food allergies. Family history: No family history of repeat infections or immunosuppression Family history of type 2 diabetes in his mother Family history of coronary artery disease in his mother and father. His father from [place]. No history of strokes, clotting disorders, or bleeding disorders Social: Tobacco: No current or former use EtOH: No current use Recreational drug use: None He lives in [facility] with his and dog. Normally has no problems with ambulation, and has had no recent falls. Admission Exam Per Admitting Provider Constitutional: + fever, + chills, + sweats, + fatigue, + weakness and + anorexia Eyes: + photophobia; no blind spots, no diplopia and no worsening vision Ear, Nose, Mouth, Throat: no ear pain, no ear discharge, no tinnitus and no hearing loss Respiratory: + cough, + chest congestion, + change in sputum, + dyspnea, + dyspnea on exertion, + pain with cough and + sputum production Cardiovascular: + dyspnea, + palpitations and + edema (unchanged from baseline, R>L); no chest pain, no chest pain at rest, no chest pain with activity, no radiating jaw, neck or arm pain, no lightheadedness and no syncope Gastrointestinal: + problem reported (decreased appetite, decreased PO intake); no abdominal pain, no nausea, no vomiting, no constipation and no diarrhea/ loose stools Genitourinary (Male): no dysuria, no difficulty urinating, no penile discharge and no urinary urgency Musculoskeletal: + back pain, + neck pain and + stiffness Integumentary: no rash and no new lesions Neurologic: + generalized weakness, + tingling, + numbness and + headache(s); no confusion Principal Diagnosis Pneumonia Discharge Exam General: Alert, oriented. No acute distress HEENT: NC/AT, PERRL, EOMI, oropharynx moist. Chest: Nontender to palpation. CV: Irregularly irregular. No murmurs appreciated Resp: Coarse breath sounds with some scattered wheezing on right. Extremities: Trace edema in lower extremities bilaterally. Discharge Data Allergies Allergy/AdvReac Type Severity Reaction Status Date / Time No Known Allergies Allergy Verified 06/18/18 11:02 Consultations 06/18/18 14:40 ED Decision to Admit Stat 06/18/18 19:39 Consult Case Management - Discharge Planning Routine 06/19/18 07:22 Consult Cardiology Routine Procedures Performed Operation Date: 06/18/18 16:30 Actual Procedures p Aspiration/PCI w/IBRAHIMA for Stemi - Garret Goodwin MD Operation Date: 06/19/18 15:00 <No data on this case meets the specified criteria> Ordered Studies 06/18/18 16:26 CL Cath Imgs for PACS use only Stat 06/18/18 20:42 CT chest wo con Stat Hospital Course (1) Fever and chills: Mr. Blake is a 73yo M with a PMHx of T1DM with neuropathy/retinopathy/ foot ulceration, HTN, CKD, Aflutter w/ pacer, CABG x3 in 1993, and AVR 2012 who presents with cough, fever, and chills worsening over one week. Fever/Chills, Pneumonia vs. Aspiration Pneumonitis -Meds switched from IV Rocephin and Doxy to PO cefuroxime and PO doxy for an additional 5 days of treatment (total 10 days) - Influzena rapid negative, influenze PCR negative. Prodrome of 4-5 days. Recieved doxy x1 dose in ED. - 37.8*C without leukocytosis in ED - CXR negative, CT-C shows consolidative opacities in the LLL, RML, RLL suggestive of multifocal bronchopneumonia vs aspiration pneumonitis - Sputum cultures unremarkable - Narrowed Pip-Tazo to Ceftriaxone+Doxy as below. Doxy chosen vs Azithromycin given marginal QTp. - APAP 650mg Q6H for fever, discomfort Chest Pain, NSTEMI -PT/OT - Mild chest tightness on admit, developed crushing chest pain and ST depressions following DuoNeb. Last cath reviewed by cards, small vessel disease not amenable to stenting. Likely had demand ischemia in the setting of acute illness worsened by the duoneb. Improving with nitro, anticoagulated with apixaban and on clopigrel at baseline. - Initial trop 0.015 worsened to 9.2, 27, 28 downtrended to 18 - Cardiology consulted - Previously on Heparin gtt for 48 hours (until 06/21 AM), Eliquis resumed after as no plans to cath at this time unless develops recurrent symptoms. - Repeat ECHO 06/19/18: LVEG 60-65%, baseal inferior/inferolateral hypokinesis, normal RV size, mod RV dysfunction, new mod RV dysfunction, normal RV size, mild -mod MR. - Nitro SL PRN, B-lissette as below - On home nebivolol, not on formulary. - Nebivolol 5mg PO daily, taking FLOOR CARE SPECIALIST med verified by pharmacy; declines conversion to metoprolol during admission New onset watery diarrhea-RESOLVING -c. diff testing -probiotic ordered. -Immodium if probiotic doesn't relieve symptoms. Prerenal Azotemia - Suspect hypovolemia in setting of acute illness. Reports he his drinking PO fluids much better today. - IVFM 80cc/hr x1-2 liters - Caution boluses, watch for pulmonary edema given his NSTEMI with mild wall motion change in RV Chronic HFpEF - Prior ECHO 02/2018: LVEF 50-55% grade II diastolic dysfunction, LV function normal. Mild concentric LVH. T1DM with peripheral neuropathy - Last A1C 7.3 in February 2018. - Repeat A1C - Continue pt driven insulin pump control. He has maintained good glycemic control independently so far. - Glucose checks AC/HS - BMP daily Atrial Flutter - Amlodipine 2.5mg daily - FLOOR CARE SPECIALIST nebivolol - Apixaban 5mg BID Chronic Kidney Disease, Stage 3 (baseline Cr ~2.1, eGFR 29.1) - d/c furosemide 40mg. No longer taking. - Renally dose medications - Avoid nephrotoxins - BMP,Cr daily Hypertension - Amlodipine as above - Not on an LINDA/ARB FLOOR CARE SPECIALIST, consider addition for renoprotection Bronchitis - Avoid albuterol given increased cardiac demand and onset of chest pain as above - Methylprednisolone x5 days - Ipratropium inh Q6-Q8H PRN - CT-C shows multifocal pneumonia, tx as above History of CABGx3 (1993) - Continue Atorvastatin 80mg daily - Clopidogrel 75 for AVR as noted below - Nebivolol as above Aortic Valve Replacement (2012) - Clopidogrel 75mg daily Hypothyroidism - FLOOR CARE SPECIALIST levothyroxine 112mcg daily Tachycardia (resolved) - Nebivolol as above. DVT Prophylaxsis: Heparin gtt, held Apixaban 2.5mg BID until restarted. Code: Status Full (2) Chest pain: (3) Diabetic peripheral neuropathy associated with type 1 diabetes mellitus: (4) Atrial flutter: (5) Hx of CABG: (6) Aortic valve replaced: (7) Chronic kidney disease: (8) Hypertension: Total Time Total Time Spent Total Time Spent (In Minutes): 60 Total Time Includes: Examination of the Patient, Discharge Planning and Medication Reconciliation Discharge Plan Discharge Items Patient Disposition: Home - Self-Care Reason For Visit: FLU LIKE ILLNESS Discharge Diagnosis: Pneumonia, NSTEMI Discharge Goals: Decrease discomfort and Therapeutic intervention Activity: Resume your previous activity Non-emergency contact: Primary Care Provider Call non-emergency contact if: you have any medication questions, your symptoms worsen and you have a fever Follow-up/Referrals: Shine Hua DO [Physician] - 07/07/18 2:00 pm (Please, follow up at [facility] Gastroenterology Office with Dr. Hua on FridayJuly 07 at 2:00 pm. *This office is located at [address] [place] [address] in [facility]. *If you need to change this appointment, call the office at [phone].) Jamar Solo III, MD [Primary Care Provider] - 07/01/18 2:00 pm (Please, follow up at Dr. Solo's office with his associate, Alyssa CUEVAS, on FridayJuly 01 at 2:00 pm. *If you need to change this appointment, call the office at [phone].) Toni Herrmann Jr, MD, [facility] [Physician] - 07/08/18 1:45 pm (Please, follow up at [facility] Cardiology Offfice with Dr. Herrmann on FridayJuly 08 at 1:45 pm. *This office is located in [address] of [facility] next to this hospital. If you need to change this appointment, call the office at [phone].) Diet: Heart Healthy Addtl Provider Instructions: You were hospitalized because you had an infection in your lungs called pneumonia. You were treated with antibiotics while hospitalized for 6 days. Your symptoms improved and you are being discharged with antibiotics for 4 more days. Please continue to take those medications. While hospitalized, you also had a heart attack. You were seen by the cardiologists while hospitalized and your home medications were continued. PLEASE REFRAIN FROM USING ALBUTEROL INHALERS OR SIMILAR MEDICATIONS MUCH POSSIBLE, as we believe that contributed to your heart attack. Please follow up with your primary care physician and your historian research assistant as soon as possible, preferably within the next week. Please take 3 days of lasix 40mg. Please weigh yourself daily. Limit your salt intake as best you can. We have organized you to see Dr. Herrmann on July 08 at 145pm. You will also have an appointment at Dr. Cano office with his PA on July 01 at 2pm. Please present to the nearest emergency room should you develop chest pain suddenly once more, trouble breathing or your heart racing. Prescriptions: New cefuroxime axetil 500 mg tablet 500 mg PO DAILY 4 Days Qty: 4 RF: 0 doxycycline hyclate 100 mg tablet 100 mg PO BID 4 Days Qty: 8 RF: 0 Saccharomyces boulardii [Florastor] 250 mg Capsule 250 mg PO DAILY Qty: 1 RF: 0 Continue apixaban 5 mg tablet 5 mg PO BID RF: 0 atorvastatin 80 mg tablet 80 mg PO QPM RF: 0 calcitriol 0.5 mcg capsule 0.5 mcg PO DAILY RF: 0 cholecalciferol (vitamin D3) 2,000 unit capsule 2,000 units PO DAILY RF: 0 clopidogrel 75 mg tablet 75 mg PO QPM RF: 0 cyanocobalamin (vitamin B-12) 1,000 mcg capsule 1,000 mcg PO DAILY RF: 0 ferrous sulfate 325 mg (65 mg iron) tablet 325 mg PO DAILY RF: 0 folic acid 1 mg tablet 1 mg PO DAILY RF: 0 furosemide 40 mg tablet 40 mg PO DAILY RF: 0 magnesium oxide 400 mg capsule 400 mg PO DAILY RF: 0 nebivolol [Bystolic] 5 mg tablet PO DIRECTED PRN (Reason: blood pressure) RF: 0 pantoprazole 40 mg tablet,delayed release (DR/EC) 40 mg PO DAILY RF: 0 B complex with C#20-folic acid [Nephrocaps] 1 mg capsule 1 cap PO DAILY RF: 0 levothyroxine 112 mcg capsule 112 mcg PO DAILY RF: 0 vitamins A,C,M-hhmp-fmsahn [PreserVision AREDS] 7,160-113-100 [id number] Tablet 1 tab PO BID RF: 0 insulin lispro [Humalog U-100 Insulin] 100 unit/mL Cartridge 1 sliding scale dose SUBCUT UD RF: 0 Discontinued amlodipine 2.5 mg tablet 2.5 mg PO DAILY RF: 0 nitroglycerin [Nitrostat] 0.4 mg tablet, sublingual 0.4 mg SL Q5M PRN (Reason: Chest Pain) RF: 0 Stand-Alone Forms: My [facility]/Other Patient Handouts: Heart Attack Dc, Pneumonia Dc Discharge Orders: Discharge Order (Routine); Ordered 06/24/18 Ordered By: Lj Sarmiento Admission Data Admit Date/Time: 06/18/18 17:29 Attending Provider: Nader Choudhary Admit Provider: Zheng Berman Primary Care Provider: Jamar Solo III Other Providers: Zheng Berman ; Jami Cervantes ; Garret Goodwin Service: Medical Other Interventions: Discharge Summary Assessment (RN) Last Done: 06/24/18 14:05 DC Date/Time DO NOT enter until pt leaves facility: 06/24/18 16:02 Supervising Physician Co-Signing Physician Notes Patient seen and examined at the bedside with Dr. Lee. Agree with history, exam findings, assessment and plan as outlined with the following changes/ updates: In brief, Mr Blake is a 73 year old type 1 diabetic with hx of CAD, neuropathy, HTN, HFpEF admitted with pneumonia. Doing well. Still coughing up brown mucus, but seems to be clearing up. Stools are more formed now. Still with edema in the legs. VS and labs reviewed. He is breathing comfortably on room air. There are coarse breath sounds throughout. 1. pneumonia. Discharge home on oral cefuroxime and doxy and ipatropium. no beta agonists given the increased cardiac demand and prior episode of CP. Offered flutter valve to help mobilize secretions. 2. NSTEMI following beta agonist administration. CP resolved. trops down trending. Restarted apixiban. On home beta-lissette. 3. prerenal azotemia in the setting of CKDresolved. 4. Diarrhea--resolved. continue probiotic. 5. Leg edema. Non-cardiac in nature. Mira marcus. I personally spent 30 minutes discharge planning for this patient. Resident Activity Tracking Resident Involvement: Resident Care Provided Care Provided: Adult Hospital Medicine
--- NOTE | 2018-06-26 09:44 | Coding Query ---
CODING QUERY To promote full compliance with coding requirements relating to patient care, provider participation is requested in all cases of household refrigeration mechanic uncertainty. Please assist us with the question(s) below: Patient was admitted with pneumonia and developed chest pain. Cardiology was consulted and cardiac catheterization was deferred. Patient with history of CABG. Please check below the diagnosis that , after study, was treated. Thank you . Evangelista Keyes, TWIST TESTER CCS Demand Ischemia ____x___ NSTEMI Type II OR Other/ Please document: __ Principal Diagnosis: "that condition established after study, to be chiefly responsible for occasioning the admission of the patient to the hospital for care." Co-Existing Principal Diagnosis: "when two or more diagnoses equally meet the criteria for principal diagnosis as determined by the circumstances of admission , diagnostic work up, and/or therapy provided, and the Alphabetic Index, Tabular List, or another coding guideline does not provide sequencing direction , any one of the diagnoses may be sequenced first." "When the physician has documented what appears to be a current diagnosis in the body of the record, but has not included the diagnosis in the final diagnostic statement, the physician should be asked whether the diagnosis should be added." (Source Coding [facility] 2 QTR90. p3-4) dx NSTEMI, demand ischemia MTDD
== END 2018-06-24 16:02 | disposition home or self-care (01) | DRG 177 ==
LOC: ED 10:15 → SUATTDRO 17:29 → 2S 17:29 → 4E 06-22 17:17

== ENCOUNTER 2018-10-26 10:51 | Inpatient (IN) ==
[2018-10-26] MEDS ORDERED: ONDANSETRON INJ 2 MG/ML 2 ML VIAL IV PRN (12:11)
[2018-10-26] MEDS ORDERED: ACETAMINOPHEN 325 MG TAB PO PRN (12:11)
[2018-10-26] MEDS ORDERED: ALUMINUM/MAGNESIUM SUSP 30 ML UDC PO PRN (12:11)
[2018-10-26] MEDS ORDERED: PHARMACY GLYCEMIC MGMT CONSULT PRN (12:25)
[2018-10-26] MEDS ORDERED: GLUCAGON FOR INJ 1 MG VIAL SQ PRN (12:30)
[2018-10-26] MEDS ORDERED: GLUCOSE 10 TABS/TUBE PO PRN (12:30)
[2018-10-26] MEDS ORDERED: DEXTROSE 50% 50 ML SYRINGE IV PRN (12:30)
[2018-10-26] MEDS ORDERED: INSULIN HUMAN LISPRO (humaLOG) 100 UNITS/ML VIAL SC PRN (12:30)
[2018-10-26] MEDS ORDERED: CARBOHYDRATES FOR HYPOGLYCEMIA PO PRN (12:30)
[2018-10-26] MEDS ORDERED: GLUCOSE 40% GEL 15 GM TUBE PO PRN (12:30)
--- NOTE | 2018-10-26 12:47 | History & Physical Report ---
Date of Service October 26, 2018 Assessment & Plan (1) Cellulitis of foot, right: The patient states he started to respond to the outpatient Keflex. He will be placed on intravenous Ancef. Blood cultures obtained. No past history of MRSA Present on Admission?: Yes (2) Diabetic foot ulcer: Consult wound care team Present on Admission?: Yes (3) Aortic valve replaced: He had a mechanical aortic valve replaced several years ago. He continues to take Eliquis (4) Chronic kidney disease: Labs. Monitor renal function (5) Diabetes: Uses an insulin pump. Glycemic consult with pharmacy has been requested History of Present Illness Chief Complaint: Right foot and right leg swelling, erythema, tenderness Primary Care Provider: Arnie Jarquin MD 73-year-old diabetic male who has a chronic right great toe ulceration and has been seen in the wound clinic. He developed a cellulitic process of the right foot and right leg and started taking oral Keflex yesterday. He was seen in the wound clinic today and he has extensive cellulitis of the right foot and right leg extending up the medial aspect of the right leg into the right thigh area with tenderness and induration. This involves greater than 10% of body surface area. He states he has started to respond to the Keflex since he started taking it. He will be treated with intravenous Ancef. There is no previous history of MRSA. X-ray of the right great toe has been ordered along with blood cultures. He uses an insulin pump which will continue and glycemic consult with pharmacy has been requested. Wound care consultation has also been requested. He is on Eliquis chronically for a mechanical aortic valve replacement that was done several years ago. He has a long list of chronic medical problems. Allergies Allergy/AdvReac Type Severity Reaction Status Date / Time No Known Allergies Allergy Verified 10/26/18 10:07 Home Medications Home Medications Medication Instructions Recorded Confirmed Type apixaban 5 mg tablet 5 mg PO BID 04/07/18 10/26/18 History atorvastatin 80 mg tablet 80 mg PO QPM 04/07/18 10/26/18 History calcitriol 0.5 mcg capsule 0.5 mcg PO DAILY 04/07/18 10/26/18 History cholecalciferol (vitamin D3) 2,000 2,000 units PO DAILY 04/07/18 10/26/18 History unit capsule clopidogrel 75 mg tablet 75 mg PO QPM tab 04/07/18 10/26/18 History cyanocobalamin (vitamin B-12) 1,000 mcg PO DAILY 04/07/18 10/26/18 History 1,000 mcg capsule folic acid 1 mg tablet 1 mg PO DAILY 04/07/18 10/26/18 History furosemide 40 mg tablet 40 mg PO DAILY 04/07/18 10/26/18 History levothyroxine 112 mcg capsule 112 mcg PO DAILY 04/07/18 10/26/18 History magnesium 400 mg (as magnesium 400 mg PO DAILY cap 04/07/18 10/26/18 History oxide) capsule nebivolol 5 mg tablet 0 mg PO DIRECTED PRN tab 04/07/18 10/26/18 History pantoprazole 40 mg tablet,delayed 40 mg PO DAILY 04/07/18 10/26/18 History release vitamin B complex and vitamin C 1 cap PO DAILY 04/07/18 10/26/18 History no.20-folic acid 1 mg capsule Humalog U-100 Insulin 1 sliding scale dose SUBCUT UD 06/18/18 10/26/18 History acyclovir [Zovirax] See Protocol PO DAILY 07/23/18 10/26/18 History Bifidobacterium infantis 4 mg 4 mg PO DAILY 08/26/18 10/26/18 History capsule [place] Caps 1 cap PO DAILY 08/31/18 10/26/18 History Past Med/Surg History Medical History Cellulitis of foot, right (Acute) Diabetes (Chronic) Heart disease (Chronic) Hypertension (Chronic) Kidney failure (Chronic) Stomach problems (Chronic) Kidney stones (Resolved) Basal cell carcinoma of left forehead (Resolved) Chronic kidney disease (Chronic) Anemia (Chronic) Renal tubular acidosis, type 4 (Chronic) Atrial flutter (Resolved 04/03/14) Diabetic foot ulcer associated with type 1 diabetes mellitus (Acute) Foot deformity (Chronic) Pacemaker (Chronic) Diabetic peripheral neuropathy associated with type 1 diabetes mellitus (Chronic) History of diabetic ulcer of foot (Chronic) Acquired claw toe of left foot (Acute) Acquired claw toe of right foot (Acute) Callus (Acute) Diabetes mellitus with diabetic polyneuropathy (Acute) Myocardial infarct (Acute) Neuropathic ulcer of toe of right foot (Acute) Neuropathic ulcer of toe of right foot (Acute) Ulcer of right midfoot (Acute) Ulcer of right midfoot (Acute) Hypothyroidism (Acute) Surgical History Aortic valve replaced (Chronic) Hx of CABG (Resolved) History of artificial heart valve (Resolved 04/03/14) History of amputation of lesser toe of right foot (Acute) History of esophagogastroduodenoscopy (EGD) Social History Preferred Language: Czech Communication Ability: Effective Visual Impairment: Limited 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: Normal Beliefs That Will Affect Care: None marital status: Current Living Situation: Spouse current occupational status: retired Other Information That Helps Us Care for You: No Feels Safe at Home: Yes Safety Concerns: Feels Safe At This Time Smoking Status: Never smoker Second Hand Exposure: No Hx Alcohol Use: No Hx Substance Use: No Review of Systems Review of Systems: All systems reviewed & are unremarkable except as noted in HPI & below Integumentary: + skin ulcer and + erythema Ulceration and multiple areas of the right great toe. Second toe of the right foot has previously been amputated area extensive erythema edema tenderness on the right foot and right lower extremity below the knee and also extending along the medial aspect of the right thigh. Physical Exam Constitutional: WD/WN, vitals as above Eyes: PERRL, conjunctivae normal, anicteric sclerae ENMT: external ear and nose normal, oropharynx normal Neck: trachea midline, no thyromegaly Respiratory: normal respiratory effort, lungs clear to auscultation Cardiovascular: Rate/Rhythm: regular rate and regular rhythm Heart Sounds: normal S1, normal S2 and + murmur (Grade 1/6 blowing murmur at the apex) Gastrointestinal (Abdomen): normal bowel sounds, soft, nontender, no hepatosplenomegaly Musculoskeletal: 1-2+ pitting edema bilateral lower extremities below the knees, more pronounced on the right side than the left. Right second toe has been amputated in the past Skin: Diffuse erythema swelling and tenderness of the right foot and right lower extremity below the knee with an area along the medial aspect of the right thigh consistent with cellulitis Neurologic: CN's II-XI intact bilaterally and moves all extremities; no focal motor deficits Results & Data Vital Signs (Past 12 Hours) Vital Signs Temp Pulse Resp BP BP Pulse Ox 10/26/18 12:04 36.8 C 81 18 114/64 99 10/26/18 11:34 36.8 C 81 18 114/64 94
--- NOTE | 2018-10-26 13:35 | XRay Report ---
XR toe RT min 2V CLINICAL HISTORY: Right great toe ulceration and infection. COMPARISON: CT of the right foot October 15, 2017. Right foot radiographs December 24, 2014. FINDINGS: Soft tissue swelling of the right first toe is noted. There is subtle lucency within the m edial aspect of the distal tuft of the distal phalanx of the right first toe. Soft tissue irregularit y of the distal aspect the right toe suggests a wound. Chronic deformity of the right second toe is p artially imaged. There is extensive vascular calcification. IMPRESSION: Subtle lucency and cortical irregularity within the distal tuft of the distal phalanx of the right first toe which favors osteomyelitis. Electronically signed by: Servando Tidwell M.D. 10/26/2018 1:34 PM
--- NOTE | 2018-10-26 13:38 | XRay Report ---
XR chest 1V not portable CLINICAL HISTORY: 73 years-old Male presenting with Ischemic cardiomyopathy, history of CHF. TECHNIQUE: PA view of the chest was obtained. COMPARISON: 07/29/2018. FINDINGS: Left subclavian pacer with leads to the right atrium and right ventricular apex. Median sternotomy wi res and mediastinal surgical clips. Prosthetic aortic valve. Atherosclerosis of the aortic arch. Card iac silhouette mildly enlarged. There may be enlargement of the main pulmonary artery given convexity in the region of the aortopulmonary window. I'll pulmonary vascular prominence. Persistent systems architect ural distortion at the left lung base with possible left pleural effusion versus pleural thickening. Right lung and pleural space remains clear. Osseous structures normal. Upper abdomen normal. IMPRESSION: 1. Chronic scarring and atelectasis at the left lung base with associated pleural thickening or pleu ral effusion. This is stable from prior. 2. Mild cardiomegaly with suggestion of pulmonary artery hypertension and volume overload. No emily pulmonary edema. Electronically signed by: Ez Salazar M.D. 10/26/2018 1:36 PM
--- NOTE | 2018-10-26 14:29 | Pharmacy Report ---
Pharmacy Glycemic Short Note 2 - Date of Service October 26, 2018 - Glycemic Short BSG Results (Last 24 hours): 10/26/18 12:13 POC Glucose 196 H OUTPATIENT ANTIDIABETIC REGIMEN: * Humalog insulin pump -- information from July 2018 * Basal: ~13-16 units per day * ~40-50 units of insulin per day * HbA1c: 7.3 (03/09/18) -- updated A1c pending with am labs ASSESSMENT: * Mr Blake is a 73yo diabetic male who uses a Humalog insulin pump at home. According to outpatient records, patient has excellent glycemic control. * Patient is admitted for worsening cellulitis/foot ulcer. * Patient will manage his own insulin pump, as long as glycemic control is reasonable during admission. PLAN FOR INPATIENT GLYCEMIC CONTROL: * Continue home insulin pump per patient management PLAN FOR DISCHARGE: * pending A1c results in the AM
[2018-10-26] MEDS: CEFAZOLIN 1000MG 1,000 MG/7.5 ML SYR IV SCH ×3 (15:43→22:11)
--- NOTE | 2018-10-26 16:49 | XRay Report ---
LEFT HUMERUS 2 VIEWS CLINICAL HISTORY: Left arm injury. FINDINGS: AP and lateral views of the left humerus are correlated with left shoulder radiographs date d 07/18/2008. The skeletal structures are osteopenic. There is no radiographic evidence of left irma l fracture. Degenerative change is seen at the glenohumeral articulation. The elbow joint is grossly preserved. The overlying soft tissues are normal in appearance. A pacemaker generator is partially vi sualized. IMPRESSION: Osteopenia with no radiographic evidence of left humeral fracture. Electronically signed by: Juancho Shaffer M.D. 10/26/2018 4:47 PM
[2018-10-26] MEDS ORDERED: SODIUM CHLORIDE 0.9% 1000ML 1,000 ML IV SCH (20:00)
[2018-10-26 20:37] LABS: Alanine Aminotransferase 33 U/L (12-78); Albumin Level 3.3 gm/dl (3.4-5.0); Alkaline Phosphatase 337 U/L (45-117); Aspartate Aminotransferase 29 U/L (15-37); Bilirubin Direct 0.8 mg/dl (0-0.2); Magnesium 1.9 mg/dl (1.8-2.4); Phosphorus 3.2 mg/dl (2.5-4.9); Total Protein 7.4 gm/dl (6.4-8.2); Troponin I < 0.015 ng/ml (0-0.045)
[2018-10-26] MEDS: CARVEDILOL 3.125 MG TAB PO SCH (21:24)
[2018-10-26] MEDS: APIXABAN 5 MG TABLET PO SCH (21:25)
[2018-10-26] MEDS: ATORVASTATIN 40 MG TAB PO SCH (21:26)
[2018-10-26] MEDS: ACYCLOVIR 400 MG TAB PO SCH (22:12)
[2018-10-26] MEDS: CLOPIDOGREL BISULFATE 75 MG TAB PO SCH (22:12)
--- NOTE | 2018-10-26 23:03 | Ultrasound Report ---
RIGHT LOWER EXTREMITY VENOUS DOPPLER HISTORY: Right leg swelling. COMPARISON STUDY: None. FINDINGS: There is normal flow and augmentation within the right lower extremity deep venous system. The patient deferred compression of the venous system. Mild right inguinal lymphadenopathy. IMPRESSION: No DVT within the right lower extremity . Mild right inguinal lymphadenopathy. Electronically signed by: Jamal Dial M.D. 10/26/2018 11:02 PM
[2018-10-26] MEDS: CLINDAMYCIN 600 MG in DEXTROSE 5% 50 ML IV SCH (23:19)
[2018-10-26] MEDS ORDERED: Nursing to Pharmacy Communication ONE (23:31)
[2018-10-26] MEDS: CALCITRIOL 0.25 MCG CAPSULE PO SCH (23:56)
[2018-10-27] MEDS: CEFAZOLIN 1000MG 1,000 MG/7.5 ML SYR IV SCH ×3 (06:07→21:57)
[2018-10-27] MEDS: CLINDAMYCIN 600 MG in DEXTROSE 5% 50 ML IV SCH ×3 (06:12→21:57)
[2018-10-27] MEDS: LEVOTHYROXINE SODIUM 112 MCG TABLET PO SCH (06:46)
[2018-10-27 07:33] LABS: Basophils # (auto) 0.02 K/uL (0-0.2); Basophils % (auto) 0.2 %; Eosinophils # (auto) 0.41 K/uL (0-0.5); Eosinophils % (auto) 4.9 %; Hematocrit (blood only) 27.9 % (42-52); Hemoglobin 9.6 g/dL (14.0-18.0); Immature Granulocytes # (auto) 0.01 K/uL (0.00-0.02); Immature Granulocytes % (auto) 0.1 %; Mean Corpuscular Hgb Conc 34.4 g/dL (32-36); Mean Corpuscular Volume 92.1 fL (80-100); Mean Platelet Volume 9.4 fL (7.4-10.4); Monocytes # (auto) 1.18 K/uL (0.11-0.59); Monocytes % (auto) 14.1 %; Neutrophils # (auto) 6.22 K/uL (1.4-6.5); Neutrophils % (auto) 74.7 %; Platelet Count 130 K/uL (130-400); RDW Standard Deviation 54.3 fL (36.4-46.3); Red Blood Count 3.03 M/uL (4.7-6.1); White Blood Count 8.34 K/uL (4.8-10.8)
--- NOTE | 2018-10-27 08:03 | CT Scan Report ---
CT SCAN OF THE RIGHT LOWER EXTREMITY WITHOUT IV CONTRAST CLINICAL HISTORY: Right lower extremity swelling and erythema. COMPARISON STUDY: CT scan of the right foot dated 10/15/2017. TECHNIQUE: CT scan of the right lower extremity is performed from the mid thigh to the foot. Images a re reviewed in the axial, sagittal, and coronal planes. IV contrast was not administered as per the r eferring clinician. A dose lowering technique was utilized adhering to the principles of ALARA. Note that interpretation is suboptimal without plain film correlate. CT DOSE: 474.96 mGy.cm FINDINGS: The skeletal structures are osteopenic. No fracture is identified. Arthritic change is seen in the knee and ankle, as well as throughout the foot. No bony erosion or periostitis is clearly clinton ntified. Extensive degenerative cystic change is seen throughout the midfoot. A Charcot foot is suspe cted. Advanced atherosclerotic plaque is identified throughout the arteries of the right lower extrem ity. There is diffuse generalized atrophy of the regional musculature. No subcutaneous gas is identif ied throughout the imaged right lower extremity. There is diffuse subcutaneous soft tissue edema and subcutaneous fluid seen throughout the right lower extremity. This is greatest in the calf and ankle. No organized fluid collection is suggested on this unenhanced examination to indicate abscess. The s oft tissues of the left lower extremity are only partially visualized and shows similar findings. Jessica gical clips are noted in the medial right thigh. A joint effusion is noted in the right knee. Amputat ions are noted involving the third and fourth toes. IMPRESSION: 1. No acute bony abnormality is identified in the right lower extremity. 2. Osteopenia and degenerative changes as above. 3. Significant soft tissue edema is seen throughout the right lower extremity. This could be related to volume status and/or cellulitis. Clinical correlation will be required. 4. Soft tissue edema is also present within the partially imaged soft tissues of the left lower extre mity. 5. No subcutaneous gas is identified throughout the right lower extremity. Dictated: 10/27/2018 7:43 AM Transcribed: 10/27/2018 8:02 AM Dawn [id number] [email or web address] Electronically signed by: Juancho Shaffer M.D. 10/27/2018 8:21 AM
[2018-10-27 08:06] LABS: BUN Creatinine Ratio 28.4 (10-20); Calcium 8.8 mg/dl (8.5-10.1); Creatinine Clr Calc Pharmacy 29.3 ml/min; Est GFR (African American) 31.9; Est GFR (Non-African American) 27.5; Potassium 4.4 mmol/L (3.5-5.1)
[2018-10-27] MEDS: APIXABAN 5 MG TABLET PO SCH ×2 (08:11→19:55)
[2018-10-27] MEDS: CARVEDILOL 3.125 MG TAB PO SCH ×2 (08:11→19:54)
[2018-10-27] MEDS: PANTOprazole 40 MG TAB PO SCH (08:12)
[2018-10-27] MEDS: ISOSORBIDE MONO EXTENDED REL 60 MG TABCR PO SCH (08:12)
[2018-10-27] MEDS ORDERED: CLOPIDOGREL BISULFATE 75 MG TAB PO SCH (09:00)
[2018-10-27] MEDS ORDERED: FOLIC ACID 1 MG TAB PO SCH (09:00)
[2018-10-27] MEDS ORDERED: NEPHROCAPS PO SCH (09:00)
[2018-10-27] MEDS ORDERED: CALCITRIOL 0.25 MCG CAPSULE PO SCH (09:00)
[2018-10-27] MEDS ORDERED: ACYCLOVIR 400 MG TAB PO SCH (09:00)
[2018-10-27] MEDS ORDERED: MAGNESIUM OXIDE 400 MG TAB PO SCH (09:00)
[2018-10-27 09:52] LABS: Estimated Average Glucose 160 mg/dl; Hemoglobin A1C 7.2 % (4.5-5.6)
[2018-10-27] MEDS: CLOPIDOGREL BISULFATE 75 MG TAB PO SCH ×2 (10:17→19:54)
[2018-10-27] MEDS: SACCHAROMYCES BOULARDII 250 MG CAP PO SCH (10:17)
[2018-10-27] MEDS: FUROSEMIDE 40 MG TAB PO SCH (10:18)
[2018-10-27] MEDS ORDERED: LACTATED RINGER'S 1,000 ML IV SCH (14:00)
[2018-10-27] MEDS: MAGNESIUM OXIDE 400 MG TAB PO SCH (19:53)
[2018-10-27] MEDS: ACYCLOVIR 400 MG TAB PO SCH (19:53)
[2018-10-27] MEDS: FOLIC ACID 1 MG TAB PO SCH (19:53)
[2018-10-27] MEDS: DOCUSATE SODIUM/SENNA 50/8.6MG TAB PO SCH (19:53)
[2018-10-27] MEDS: NEPHROCAPS PO SCH (19:54)
[2018-10-27] MEDS: ATORVASTATIN 40 MG TAB PO SCH (19:54)
[2018-10-27] MEDS: CALCITRIOL 0.25 MCG CAPSULE PO SCH (19:55)
[2018-10-27] MEDS: CHOLECALCIFEROL 1,000 UNITS TAB PO SCH (21:18)
[2018-10-27] MEDS: CALCIUM CITRATE 950 MG TAB PO SCH (21:19)
[2018-10-27] MEDS: CYANOCOBALAMIN 500 MCG TABLET (VITAMIN B-12) PO SCH (21:19)
--- NOTE | 2018-10-27 22:45 | Hospitalist Progress Note ---
Date of Service October 27, 2018 Assessment & Plan (1) Cellulitis of foot, right: The patient states he started to respond to the outpatient Keflex. He will be placed on intravenous Ancef. Blood cultures obtained. No past history of MRSA. It appears patient is improving will continue to monitor. (2) Diabetic foot ulcer: Consult wound care team (3) Aortic valve replaced: He had a mechanical aortic valve replaced several years ago. He continues to take Eliquis (4) Chronic kidney disease: Labs. Monitor renal function (5) Diabetes: Uses an insulin pump. Glycemic consult with pharmacy has been requested (6) Contusion of left upper arm: currently not complaining of pain. Will monitor. No signs of ecchymosis today. X-ray of humerus was reviewed and is negative for fracture Spent 35 minutes in management of patient.. Subjective 73 yo male was seen around noon today. Patient wants an update in regards to his cellulitis and is requesting for his wound in his right great toe to be seen by a wound care doctor. He did not complain of any shoulder pain during my encounter with the patient. 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 Review of Systems Review of Systems: All systems reviewed & are unremarkable except as noted in HPI & below Physical Exam Physical Exam: Constitutional: WD/WN, vitals as above Eyes: PERRL, conjunctivae normal, anicteric sclerae ENMT: external ear and nose normal, oropharynx normal Neck: trachea midline, no thyromegaly Respiratory: normal respiratory effort, lungs clear to auscultation Cardiovascular: Rate/Rhythm: regular rate and regular rhythm Heart Sounds: normal S1, normal S2 and + murmur (Grade 1/6 blowing murmur at the apex) Gastrointestinal (Abdomen): normal bowel sounds, soft, nontender, no hepatosplenomegaly Musculoskeletal: 1-2+ pitting edema bilateral lower extremities below the knees, more pronounced on the right side than the left. Right second toe has been amputated in the past Skin: Diffuse erythema swelling and tenderness of the right foot and right lower extremity below the knee with an area along the medial aspect of the right thigh consistent with cellulitis. The erythema was delineated on 10/26 and it does appear to have receded today. THE ERYTHEMA WAS AGAIN DELINEATED. Neurologic: CN's II-XI intact bilaterally and moves all extremities; no focal motor deficits Results & Data Vital Signs (Past 12 Hours) Vital Signs Temp Pulse Resp BP Pulse Ox 10/27/18 14:53 36.8 C 79 16 124/76 96
[2018-10-27] MEDS ORDERED: LIDOCAINE 5% 1 PATCH TD SCH (23:45)
[2018-10-28] MEDS ORDERED: CYCLOBENZAPRINE HCL 10 MG TAB PO STA (04:55)
[2018-10-28] MEDS: CLINDAMYCIN 600 MG in DEXTROSE 5% 50 ML IV SCH ×3 (06:32→21:53)
[2018-10-28] MEDS: CEFAZOLIN 1000MG 1,000 MG/7.5 ML SYR IV SCH (06:32)
[2018-10-28] MEDS: LEVOTHYROXINE SODIUM 112 MCG TABLET PO SCH (06:36)
[2018-10-28] MEDS ORDERED: LACTOBACILLUS ACIDOPHILUS (FLORANEX) TAB PO SCH (08:00)
[2018-10-28] MEDS: ISOSORBIDE MONO EXTENDED REL 60 MG TABCR PO SCH (08:18)
[2018-10-28] MEDS: CARVEDILOL 3.125 MG TAB PO SCH ×2 (08:19→21:45)
[2018-10-28] MEDS: APIXABAN 5 MG TABLET PO SCH ×2 (08:22→21:44)
[2018-10-28] MEDS: SACCHAROMYCES BOULARDII 250 MG CAP PO SCH ×2 (08:22→21:45)
[2018-10-28] MEDS: DOCUSATE SODIUM/SENNA 50/8.6MG TAB PO SCH (08:29)
[2018-10-28] MEDS: CALCIUM CITRATE 950 MG TAB PO SCH ×2 (08:30→21:44)
[2018-10-28] MEDS: FUROSEMIDE 40 MG TAB PO SCH (08:30)
[2018-10-28] MEDS: CHOLECALCIFEROL 1,000 UNITS TAB PO SCH ×2 (08:31→21:41)
[2018-10-28] MEDS: CYANOCOBALAMIN 500 MCG TABLET (VITAMIN B-12) PO SCH ×2 (08:31→21:41)
[2018-10-28] MEDS ORDERED: Nursing to Pharmacy Communication ONE (08:40)
[2018-10-28] MEDS ORDERED: DICLOFENAC SOD 1% GEL 100 GM TUBE EXT SCH (09:00)
[2018-10-28] MEDS ORDERED: CALCITRIOL 0.25 MCG CAPSULE PO SCH (09:00)
[2018-10-28] MEDS ORDERED: SODIUM CHLORIDE 0.65% NA SOLN 45 ML (OCEAN) ONE (09:54)
[2018-10-28] MEDS: PANTOprazole 40 MG TAB PO SCH (09:55)
[2018-10-28 10:14] LABS: Hemoglobin 9.5 g/dL (14.0-18.0); Mean Corpuscular Hgb Conc 33.9 g/dL (32-36); Mean Corpuscular Volume 91.8 fL (80-100); Mean Platelet Volume 8.7 fL (7.4-10.4); Platelet Count 121 K/uL (130-400); RDW Coefficient of Variation 15.9 % (11.5-14.5); RDW Standard Deviation 53.9 fL (36.4-46.3); Red Blood Count 3.05 M/uL (4.7-6.1); White Blood Count 5.76 K/uL (4.8-10.8)
[2018-10-28 10:30] LABS: BUN Creatinine Ratio 26.9 (10-20); Calcium 8.5 mg/dl (8.5-10.1); Creatinine Clr Calc Pharmacy 27.9 ml/min; Est GFR (African American) 30.1; Potassium 4.9 mmol/L (3.5-5.1)
[2018-10-28] MEDS ORDERED: FUROSEMIDE 40 MG TAB PO PRN (11:20)
[2018-10-28] MEDS ORDERED: CYCLOBENZAPRINE HCL 10 MG TAB PO PRN (12:09)
--- NOTE | 2018-10-28 15:40 | Wound Consultation ---
Date of Consultation October 28, 2018 Assessment & Plan (1) Ulcer of right great toe due to diabetes mellitus: Patient seen sitting in bed. At this point it appears the cellulitis is slowly improving. No debridement is required at this time. Would consider repeat arterial duplexes. Wound be dressed with Betadine. Continue antibiotics. We will see patient when he is discharged. Thank you for allowing us to participate in the care of this patient. Please not hesitate to call with any questions. (2) Cellulitis of foot, right: (3) Diabetic foot ulcer: History of Present Illness Attending Physician: Denver Humphries Is a 73-year-old female known to the wound clinic. He was admitted from the wound clinic with worsening cellulitis questionable worsening of his peripheral arterial disease. He remains on IV antibiotics at this time. Allergies Allergy/AdvReac Type Severity Reaction Status Date / Time No Known Allergies Allergy Verified 10/26/18 10:07 Home Medications Home Medications Medication Instructions Recorded Confirmed Type apixaban 5 mg tablet 5 mg PO BID 04/07/18 10/26/18 History atorvastatin 80 mg tablet 80 mg PO QPM 04/07/18 10/26/18 History calcitriol 0.5 mcg capsule 0.5 mcg PO DAILY 04/07/18 10/26/18 History cholecalciferol (vitamin D3) 2,000 2,000 units PO DAILY 04/07/18 10/26/18 History unit capsule clopidogrel 75 mg tablet 75 mg PO QPM tab 04/07/18 10/26/18 History cyanocobalamin (vitamin B-12) 1,000 mcg PO DAILY 04/07/18 10/26/18 History 1,000 mcg capsule folic acid 1 mg tablet 1 mg PO DAILY 04/07/18 10/26/18 History furosemide 40 mg tablet 40 mg PO DAILY 04/07/18 10/26/18 History levothyroxine 112 mcg capsule 112 mcg PO DAILY 04/07/18 10/26/18 History magnesium 400 mg (as magnesium 400 mg PO DAILY cap 04/07/18 10/26/18 History oxide) capsule nebivolol 5 mg tablet 0 mg PO DIRECTED PRN tab 04/07/18 10/26/18 History pantoprazole 40 mg tablet,delayed 40 mg PO DAILY 04/07/18 10/26/18 History release vitamin B complex and vitamin C 1 cap PO DAILY 04/07/18 10/26/18 History no.20-folic acid 1 mg capsule Humalog U-100 Insulin 1 sliding scale dose SUBCUT UD 06/18/18 10/26/18 History acyclovir [Zovirax] See Protocol PO DAILY 07/23/18 10/26/18 History Bifidobacterium infantis 4 mg 4 mg PO DAILY 08/26/18 10/26/18 History capsule [place] Caps 1 cap PO DAILY 08/31/18 10/26/18 History Patient History Medical History Cellulitis of foot, right (Acute) Diabetes (Chronic) Heart disease (Chronic) Hypertension (Chronic) Kidney failure (Chronic) Stomach problems (Chronic) Kidney stones (Resolved) Basal cell carcinoma of left forehead (Resolved) Chronic kidney disease (Chronic) Anemia (Chronic) Renal tubular acidosis, type 4 (Chronic) Atrial flutter (Resolved 04/03/14) Diabetic foot ulcer associated with type 1 diabetes mellitus (Acute) Foot deformity (Chronic) Pacemaker (Chronic) Diabetic peripheral neuropathy associated with type 1 diabetes mellitus (Chronic) History of diabetic ulcer of foot (Chronic) Acquired claw toe of left foot (Acute) Acquired claw toe of right foot (Acute) Callus (Acute) Diabetes mellitus with diabetic polyneuropathy (Acute) Myocardial infarct (Acute) Neuropathic ulcer of toe of right foot (Acute) Neuropathic ulcer of toe of right foot (Acute) Ulcer of right midfoot (Acute) Ulcer of right midfoot (Acute) Hypothyroidism (Acute) Surgical History Aortic valve replaced (Chronic) Hx of CABG (Resolved) History of artificial heart valve (Resolved 04/03/14) History of amputation of lesser toe of right foot (Acute) History of esophagogastroduodenoscopy (EGD) Social History Preferred Language: Yoruba Communication Ability: Effective Visual Impairment: Limited 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: Normal Beliefs That Will Affect Care: None marital status: Current Living Situation: Spouse current occupational status: retired Feels Safe at Home: Yes Smoking Status: Never smoker Second Hand Exposure: No Hx Alcohol Use: No Hx Substance Use: No Review of Systems Review of Systems: All systems reviewed & are unremarkable except as noted in HPI & below Physical Exam Constitutional: WD/WN, vitals as above Eyes: PERRL, conjunctivae normal, anicteric sclerae ENMT: Ears: no hearing impairment Respiratory: normal respiratory effort, lungs clear to auscultation Cardiovascular: RRR, no murmur, no edema Gastrointestinal (Abdomen): normal bowel sounds, soft, nontender, no hepa tosplenomegaly Skin: Right plantar foot wound measuring 0.2 x 0.2 cm. Wound with thick eschar. Periwound inflammation is improving. Neurologic: awake; not confused Psychiatric: A+Ox3, euthymic affect Results & Data Vital Signs (Past 12 Hours) Vital Signs Temp Pulse Resp BP Pulse Ox 10/28/18 07:41 36.8 C 70 18 125/79 99
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
[2018-10-28] MEDS ORDERED: IBUPROFEN 600 MG TAB PO STA (20:03)
[2018-10-28] MEDS ORDERED: IBUPROFEN 600 MG TAB PO ONE (20:12)
[2018-10-28] MEDS: ACYCLOVIR 400 MG TAB PO SCH (21:40)
[2018-10-28] MEDS: NEPHROCAPS PO SCH (21:41)
[2018-10-28] MEDS: ATORVASTATIN 40 MG TAB PO SCH (21:41)
[2018-10-28] MEDS: CLOPIDOGREL BISULFATE 75 MG TAB PO SCH (21:41)
[2018-10-28] MEDS: FOLIC ACID 1 MG TAB PO SCH (21:45)
[2018-10-28] MEDS: MAGNESIUM OXIDE 400 MG TAB PO SCH (21:45)
[2018-10-28] MEDS: DICLOFENAC SOD 1% GEL 100 GM TUBE EXT SCH (21:45)
--- NOTE | 2018-10-28 22:22 | Hospitalist Progress Note ---
Date of Service October 28, 2018 Assessment & Plan (1) Cellulitis of foot, right: The patient states he started to respond to the outpatient Keflex. He will be placed on intravenous Ancef. Blood cultures obtained. No past history of MRSA. It appears patient is improving will continue to monitor. Stopped cephalosporin and remainon clindamycin. (2) Diabetic foot ulcer: Consult wound care team/ awaiting input. (3) Aortic valve replaced: He had a mechanical aortic valve replaced several years ago. He continues to take Eliquis (4) Chronic kidney disease: Labs. Monitor renal function (5) Diabetes: Uses an insulin pump. Glycemic consult with pharmacy has been requested (6) Frozen shoulder: Will consult ortho. Kendrick above diagnosis vs rotator cuff strain. Difficult toascertain given his lack of mobitlity. Will likely beenfit from steroids however, this may be difficulty given his diabetes. Will place patient on a muscle relaxer. (7) Contusion of left upper arm: currently not complaining of pain. Will monitor. No signs of ecchymosis today. X-ray of humerus was reviewed and is negative for fracture Spent 35 minutes in management of patient.. Subjective Patient was seen in the AM. Patient reports that his erythema has improved. He states that his right leg is less painful and less erythema. Patient reports that his has pain in his left neck and radiates over the region of his trapezius (near his scapula). He reports that any range of motion of his shoulder is also painful. Review of Systems Review of Systems: All systems reviewed & are unremarkable except as noted in HPI & below Physical Exam Physical Exam: Constitutional: WD/WN, vitals as above Eyes: PERRL, conjunctivae normal, anicteric sclerae ENMT: external ear and nose normal, oropharynx normal Neck: trachea midline, no thyromegaly Respiratory: normal respiratory effort, lungs clear to auscultation Cardiovascular: Rate/Rhythm: regular rate and regular rhythm Heart Sounds: normal S1, normal S2 and + murmur (Grade 1/6 blowing murmur at the apex) Gastrointestinal (Abdomen): normal bowel sounds, soft, nontender, no hepatosplenomegaly Musculoskeletal: 1-2+ pitting edema bilateral lower extremities below the knees, more pronounced on the right side than the left. Right second toe has been amputated in the past Tenderness over left trapezius. Decreased range of motion on active and passive movements IN ALL PLANES OF LEFT shoulder. Skin: decreased erythema swelling and tenderness of the right foot and right lower extremity below the knee with an area along the medial aspect of the right thigh consistent with cellulitis. The erythema was delineated on 10/26 and 10/27 and it does appear to have receded today. THE ERYTHEMA WAS AGAIN DELINEATED on 10/28. Neurologic: CN's II-XI intact bilaterally and moves all extremities; no focal motor deficits Results & Data Vital Signs (Past 12 Hours) Vital Signs Temp Pulse Resp BP Pulse Ox 10/28/18 15:45 36.6 C 69 22 126/75 100
[2018-10-29 05:58] LABS: Basophils # (auto) 0.04 K/uL (0-0.2); Basophils % (auto) 0.7 %; Eosinophils # (auto) 0.37 K/uL (0-0.5); Eosinophils % (auto) 6.8 %; Hematocrit (blood only) 27.6 % (42-52); Hemoglobin 9.4 g/dL (14.0-18.0); Lymphocytes # (auto) 0.83 K/uL (1.2-3.4); Lymphocytes % (auto) 15.2 %; Mean Corpuscular Hgb Conc 34.1 g/dL (32-36); Mean Corpuscular Volume 92.3 fL (80-100); Mean Platelet Volume 8.7 fL (7.4-10.4); Monocytes # (auto) 0.92 K/uL (0.11-0.59); Monocytes % (auto) 16.8 %; Neutrophils % (auto) 60.5 %; Platelet Count 132 K/uL (130-400); RDW Coefficient of Variation 15.9 % (11.5-14.5); RDW Standard Deviation 53.9 fL (36.4-46.3); Red Blood Count 2.99 M/uL (4.7-6.1); White Blood Count 5.46 K/uL (4.8-10.8)
[2018-10-29] MEDS: LEVOTHYROXINE SODIUM 112 MCG TABLET PO SCH (06:11)
[2018-10-29] MEDS: CLINDAMYCIN 600 MG in DEXTROSE 5% 50 ML IV SCH ×3 (06:12→21:46)
[2018-10-29 06:25] LABS: BUN Creatinine Ratio 28.8 (10-20); Calcium 8.6 mg/dl (8.5-10.1); Creatinine Clr Calc Pharmacy 27.7 ml/min; Est GFR (African American) 29.8; Est GFR (Non-African American) 25.7; Potassium 5.1 mmol/L (3.5-5.1)
[2018-10-29] MEDS: PANTOprazole 40 MG TAB PO SCH (08:42)
[2018-10-29] MEDS: ISOSORBIDE MONO EXTENDED REL 60 MG TABCR PO SCH (08:43)
[2018-10-29] MEDS: APIXABAN 5 MG TABLET PO SCH ×2 (08:43→21:41)
[2018-10-29] MEDS: CARVEDILOL 3.125 MG TAB PO SCH ×2 (08:44→21:41)
[2018-10-29] MEDS: DOCUSATE SODIUM/SENNA 50/8.6MG TAB PO SCH (08:44)
[2018-10-29] MEDS: DICLOFENAC SOD 1% GEL 100 GM TUBE EXT SCH ×4 (08:46→21:46)
[2018-10-29] MEDS ORDERED: LIDOCAINE 5% 1 PATCH TD SCH (09:00)
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
--- NOTE | 2018-10-29 14:13 | XRay Report ---
XR knee RT 2V routine CLINICAL HISTORY: Right knee pain following injury. COMPARISON: CT of the right lower leg October 27, 2018. FINDINGS: Alignment of the right knee is anatomic. There is no acute fracture. A small to moderate r ight knee joint effusion is noted. Disc contrast calcinosis within the menisci. There is mild medial compartment joint space narrowing. There is severe patellofemoral compartment joint space narrowing. Surgical clips within the medial right leg are noted. There is extensive vascular calcification. IMPRESSION: 1. No acute fracture. 2. Osteoarthritis within the right knee, most pronounced within the patellofemoral compartment. 3. Small to moderate right knee joint effusion. Electronically signed by: Servando Tidwell M.D. 10/29/2018 2:12 PM
--- NOTE | 2018-10-29 14:15 | XRay Report ---
CERVICAL SPINE 3 VIEWS CLINICAL HISTORY: Neck injury. FINDINGS: AP, lateral, and odontoid views of the cervical spine are correlated with the CT scan of th e cervical spine dated 08/07/2017. The skeletal structures are osteopenic. There is no radiographic ev idence of fracture or malalignment. Vertebral body height is maintained throughout the cervical spine . There is minimal retrolisthesis at C6-C7. Alignment is otherwise maintained. The atlantodental cj culation appears preserved noting productive degenerative change. Anterior osteophytes are seen throu ghout. Again seen are changes of extensive laminectomy throughout the cervical spine. There is advanc ed disc space narrowing seen at all cervical levels, with near complete bony fusion at C5 and C6. Sma ll posterior disc osteophyte complexes are noted at C3-C4 and C4-C5. The prevertebral soft tissues ar e normal in appearance. The partially imaged apical lung parenchyma appears clear. Midline sternotomy wires and cardiac pacemaker leads are noted. There is dense atherosclerotic calcification of the lef t carotid bulb. IMPRESSION: 1. No acute bony abnormality is identified involving the cervical spine. 2. Osteopenia with spondylotic and postoperative change as above. Dictated: 10/29/2018 2:08 PM Transcribed: 10/29/2018 2:15 PM Dawn [id number] [email or web address] Electronically signed by: Juancho Shaffer M.D. 10/29/2018 2:34 PM
--- NOTE | 2018-10-29 15:44 | Pharmacy Report ---
Pharmacy Glycemic Short Note 2 - Date of Service October 29, 2018 - Glycemic Short BSG Results (Last 24 hours): 10/29/18 10/29/18 10/29/18 05:26 08:18 11:47 Glucose 122 H POC Glucose 125 H 107 H OUTPATIENT ANTIDIABETIC REGIMEN: * Humalog insulin pump -- information from July 2018 * Basal: ~13-16 units per day * ~40-50 units of insulin per day * HbA1c: 7.3 (03/09/18) -- updated A1c pending with am labs ASSESSMENT: 10/29/18: * Patient continues to manage his own Humalog insulin pump and has been doing great job. * BSGs have been either at goal or slightly below goal (but not hypoglycemic) the past 2 days. 10/26/18: * Mr Blake is a 73yo diabetic male who uses a Humalog insulin pump at home. According to outpatient records, patient has excellent glycemic control. * Patient is admitted for worsening cellulitis/foot ulcer. * Patient will manage his own insulin pump, as long as glycemic control is reasonable during admission. PLAN FOR INPATIENT GLYCEMIC CONTROL: * Continue home insulin pump per patient management PLAN FOR DISCHARGE: * HbA1c = 7.2% on 10/27/18 indicates well-controlled diabetes as outpatient. * Recommend continue on Humalog pump since patient has been doing really well on it even while inhouse.
[2018-10-29] MEDS: MAGNESIUM OXIDE 400 MG TAB PO SCH (21:41)
[2018-10-29] MEDS: CALCIUM CITRATE 950 MG TAB PO SCH (21:41)
[2018-10-29] MEDS: FOLIC ACID 1 MG TAB PO SCH (21:42)
[2018-10-29] MEDS: ATORVASTATIN 40 MG TAB PO SCH (21:43)
[2018-10-29] MEDS: NEPHROCAPS PO SCH (21:43)
[2018-10-29] MEDS: CYANOCOBALAMIN 500 MCG TABLET (VITAMIN B-12) PO SCH (21:43)
[2018-10-29] MEDS: CLOPIDOGREL BISULFATE 75 MG TAB PO SCH (21:43)
[2018-10-29] MEDS: ACYCLOVIR 400 MG TAB PO SCH (21:43)
[2018-10-29] MEDS: SACCHAROMYCES BOULARDII 250 MG CAP PO SCH (21:44)
[2018-10-29] MEDS: CHOLECALCIFEROL 1,000 UNITS TAB PO SCH (21:45)
--- NOTE | 2018-10-29 23:07 | Hospitalist Progress Note ---
Date of Service October 29, 2018 Assessment & Plan (1) Cellulitis of foot, right: The patient states he started to respond to the outpatient Keflex. Blood cultures obtained. No past history of MRSA. It appears patient is improving will continue to monitor. Stopped cephalosporin and remained on clindamycin. Will add amoxicillin and stop clindamycin overnight. (2) Diabetic foot ulcer: Consult wound care team/ awaiting input. (3) Aortic valve replaced: He had a mechanical aortic valve replaced several years ago. He continues to take Eliquis (4) Chronic kidney disease: Appears acute on chronic kidney disease. Will closely monitor. Will recheck in AM. May consider another dose of IV fluids. Patient did receive a dose of motrin today. Despite multiple imaging modalities, patient did not receive IV contrast. (5) Diabetes: Uses an insulin pump. Glycemic consult with pharmacy has been requested (6) Frozen shoulder: Consulted ortho. Ordered x-rays: no signs of fracture, only wear and tear. Likely above diagnosis vs rotator cuff strain. Difficult to ascertain given his lack of mobitlity. Will likely beenfit from steroids however, this may be difficulty given his diabetes. Will place patient on a muscle relaxer. (7) Contusion of left upper arm: currently not complaining of pain. Will monitor. No signs of ecchymosis during hospital stay/ X-ray of humerus was reviewed and is negative for fracture Spent 35 minutes in management of patient.. Subjective 73 yo male reports feeling better. His cellulitis has improved and it is less pink today. And when he touches it, it is less painful. Review of Systems Review of Systems: All systems reviewed & are unremarkable except as noted in HPI & below Physical Exam Physical Exam: Constitutional: WD/WN, vitals as above Eyes: PERRL, conjunctivae normal, anicteric sclerae ENMT: external ear and nose normal, oropharynx normal Neck: trachea midline, no thyromegaly Respiratory: normal respiratory effort, lungs clear to auscultation Cardiovascular: Rate/Rhythm: regular rate and regular rhythm Heart Sounds: normal S1, normal S2 and + murmur (Grade 1/6 blowing murmur at the apex) Gastrointestinal (Abdomen): normal bowel sounds, soft, nontender, no hepatosplenomegaly Musculoskeletal: 1-2+ pitting edema bilateral lower extremities below the knees, more pronounced on the right side than the left. Right second toe has been amputated in the past Tenderness over left trapezius. Decreased range of motion on active and passive movements IN ALL PLANES OF LEFT shoulder. Skin: decreased erythema swelling and tenderness of the right foot and right lower extremity below the knee with an area along the medial aspect of the right thigh consistent with cellulitis. The erythema has significantly decreased. Neurologic: CN's II-XI intact bilaterally and moves all extremities; no focal motor deficits Results & Data Vital Signs (Past 12 Hours) Vital Signs Temp Pulse Resp BP Pulse Ox 10/29/18 14:53 36.5 C 71 16 109/68 100
[2018-10-30] MEDS: CLINDAMYCIN 600 MG in DEXTROSE 5% 50 ML IV SCH (06:24)
[2018-10-30] MEDS: LEVOTHYROXINE SODIUM 112 MCG TABLET PO SCH (06:25)
[2018-10-30] MEDS ORDERED: LACTATED RINGER'S 1,000 ML IV SCH (07:30)
[2018-10-30] MEDS ORDERED: AMOXICILLIN/CLAVULANATE 875 MG TAB PO SCH (08:00)
[2018-10-30] MEDS: APIXABAN 5 MG TABLET PO SCH (08:32)
[2018-10-30] MEDS: DOCUSATE SODIUM/SENNA 50/8.6MG TAB PO SCH (08:32)
[2018-10-30] MEDS: CARVEDILOL 3.125 MG TAB PO SCH (08:32)
[2018-10-30] MEDS: ISOSORBIDE MONO EXTENDED REL 60 MG TABCR PO SCH (08:32)
[2018-10-30] MEDS: PANTOprazole 40 MG TAB PO SCH (08:33)
[2018-10-30] MEDS: DICLOFENAC SOD 1% GEL 100 GM TUBE EXT SCH ×3 (08:33→16:32)
[2018-10-30 11:03] LABS: Hematocrit (blood only) 27.5 % (42-52); Hemoglobin 9.3 g/dL (14.0-18.0); Mean Corpuscular Hgb Conc 33.8 g/dL (32-36); Platelet Count 135 K/uL (130-400); RDW Coefficient of Variation 16.1 % (11.5-14.5); RDW Standard Deviation 54.1 fL (36.4-46.3); Red Blood Count 2.99 M/uL (4.7-6.1); White Blood Count 5.26 K/uL (4.8-10.8)
--- NOTE | 2018-10-30 12:22 | Nephrology Consultation ---
Date of Consultation October 30, 2018 Assessment & Plan (1) Stage III chronic kidney disease: -- Kidney function is relatively stable at this time -- Agree w/ 1 L LR IV. Recheck PRP in am -- Consider renal US and urinalysis w/ micro only if renal function fails to improve w/ IV hydration (2) Cellulitis of foot, right: -- Recommend changing to Augmentin 500 mg po BID to adjust for CKD (3) Anemia: -- Patient reports melena. Hgb is trending down. Recommend FOBT. If + consider GI evaluation History of Present Illness Reason for Consultation: CKD Attending Physician: Denver Humphries History of Present Illness Mr. Blake is a 73 year old white male who is seen at the request of Dr. Humphries for evaluation of CKD. Medical records in the EMR were reviewed today and are summarized as follows: Mr. Blake has stage III CKD due to diabetic nephropathy. His baseline creatinine has ranged from 2.0 - 2.4. His medical history is significant for IDDM, diabetic retinopathy, obesity s/p gastric bypass 1999, kidney stones, iron deficiency anemia, hypothyroidism, paroxysmal atrial fibrillation, PVD w/ carotid stenosis, ASCVD s/p CABG x3, AVR w/ SVG to PDA bypass at [facility] 08/05, and thoracic aortic aneurysm. Mr. Blake reports that he underwent debridement of an ulcer involving his R great toe. He subsequently developed cellulitis which he treated at home w/ oral Keflex. Unfortunately he did not respond and presented to the [facility] ED 10/26 with cellulitis involving his entire RLE from foot to the proximal thigh. Wound cultures are positive for Oxacillin sensitive Staph Aureus. Blood cultures are negative. Mr. Blake has responded to IV antibiotic therapy. He was transitioned to oral Augmentin. Serum creatinine has been 2.0 - 2.4 over the course of his hospitalization. Mr. Blake expressed concern this morning that his Hgb is trending down and he now has dark, tarry stool. Allergies Allergy/AdvReac Type Severity Reaction Status Date / Time No Known Allergies Allergy Verified 10/26/18 10:07 Home Medications Home Medications Medication Instructions Recorded Confirmed Type apixaban 5 mg tablet 5 mg PO BID 04/07/18 10/26/18 History atorvastatin 80 mg tablet 80 mg PO QPM 04/07/18 10/26/18 History calcitriol 0.5 mcg capsule 0.5 mcg PO DAILY 04/07/18 10/26/18 History cholecalciferol (vitamin D3) 2,000 2,000 units PO DAILY 04/07/18 10/26/18 History unit capsule clopidogrel 75 mg tablet 75 mg PO QPM tab 04/07/18 10/26/18 History cyanocobalamin (vitamin B-12) 1,000 mcg PO DAILY 04/07/18 10/26/18 History 1,000 mcg capsule folic acid 1 mg tablet 1 mg PO DAILY 04/07/18 10/26/18 History furosemide 40 mg tablet 40 mg PO DAILY 04/07/18 10/26/18 History levothyroxine 112 mcg capsule 112 mcg PO DAILY 04/07/18 10/26/18 History magnesium 400 mg (as magnesium 400 mg PO DAILY cap 04/07/18 10/26/18 History oxide) capsule nebivolol 5 mg tablet 0 mg PO DIRECTED PRN tab 04/07/18 10/26/18 History pantoprazole 40 mg tablet,delayed 40 mg PO DAILY 04/07/18 10/26/18 History release vitamin B complex and vitamin C 1 cap PO DAILY 04/07/18 10/26/18 History no.20-folic acid 1 mg capsule Humalog U-100 Insulin 1 sliding scale dose SUBCUT UD 06/18/18 10/26/18 History acyclovir [Zovirax] See Protocol PO DAILY 07/23/18 10/26/18 History Bifidobacterium infantis 4 mg 4 mg PO DAILY 08/26/18 10/26/18 History capsule Gabe Caps 1 cap PO DAILY 08/31/18 10/26/18 History Patient History Medical History Cellulitis of foot, right (Acute) Diabetes (Chronic) Heart disease (Chronic) Hypertension (Chronic) Kidney failure (Chronic) Stomach problems (Chronic) Kidney stones (Resolved) Basal cell carcinoma of left forehead (Resolved) Chronic kidney disease (Chronic) Anemia (Chronic) Renal tubular acidosis, type 4 (Chronic) Atrial flutter (Resolved 04/03/14) Diabetic foot ulcer associated with type 1 diabetes mellitus (Acute) Foot deformity (Chronic) Pacemaker (Chronic) Diabetic peripheral neuropathy associated with type 1 diabetes mellitus (Chronic) History of diabetic ulcer of foot (Chronic) Acquired claw toe of left foot (Acute) Acquired claw toe of right foot (Acute) Callus (Acute) Diabetes mellitus with diabetic polyneuropathy (Acute) Myocardial infarct (Acute) Neuropathic ulcer of toe of right foot (Acute) Neuropathic ulcer of toe of right foot (Acute) Ulcer of right midfoot (Acute) Ulcer of right midfoot (Acute) Hypothyroidism (Acute) Surgical History Aortic valve replaced (Chronic) Hx of CABG (Resolved) History of artificial heart valve (Resolved 04/03/14) History of amputation of lesser toe of right foot (Acute) History of esophagogastroduodenoscopy (EGD) Social History Preferred Language: Belarusian Communication Ability: Effective Visual Impairment: Limited 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: Normal Beliefs That Will Affect Care: None marital status: Current Living Situation: Spouse current occupational status: retired Feels Safe at Home: Yes Smoking Status: Never smoker Second Hand Exposure: No Hx Alcohol Use: No Hx Substance Use: No Review of Systems Constitutional: no fever Respiratory: no dyspnea Cardiovascular: no chest pain Gastrointestinal: + melena; no abdominal pain and no vomiting Genitourinary: no dysuria Physical Exam Constitutional: + frail appearing; no acute distress Eyes: PERRL, conjunctivae normal, anicteric sclerae ENMT: Mouth: + dry oral mucous membranes Neck: trachea midline, no thyromegaly Respiratory: normal respiratory effort, lungs clear to auscultation Cardiovascular: Rate/Rhythm: regular rate and regular rhythm Gastrointestinal (Abdomen): normal bowel sounds, soft, nontender, no hepatosplenomegaly Skin: no rashes, warm and dry (RLE cellulitis has resolved. No erythema surrounding R great toe ulcer) Results & Data Vital Signs (Past 12 Hours) Vital Signs Temp Pulse Resp BP Pulse Ox 10/30/18 07:05 36.6 C 73 18 131/74 97 10/30/18 00:14 36.8 C 69 18 145/78 H 100 Laboratory Results Laboratory Tests 10/29/18 10/29/18 05:26 05:26 WBC 5.46 Hgb 9.4 L Hct 27.6 L Plt Count 132 Sodium 139 Potassium 5.1 Chloride 112 H Carbon Dioxide 20 L BUN 69 H Creatinine 2.38 H Glucose 122 H
--- NOTE | 2018-10-30 12:49 | Hospitalist Progress Note ---
Date of Service October 30, 2018 Assessment & Plan (1) Cellulitis of foot, right: The patient states he started to respond to the outpatient Keflex. Blood cultures obtained. No past history of MRSA. It appears patient is improving will continue to monitor. Stopped cephalosporin and remained on clindamycin. Will add amoxicillin and stop clindamycin overnight. (2) Diabetic foot ulcer: Consult wound care team/ awaiting input. (3) Aortic valve replaced: He had a mechanical aortic valve replaced several years ago. He continues to take Eliquis (4) Chronic kidney disease: Appears acute on chronic kidney disease. Will closely monitor. Will recheck in AM. May consider another dose of IV fluids. Patient did receive a dose of motrin today. Despite multiple imaging modalities, patient did not receive IV contrast. (5) Diabetes: Uses an insulin pump. Glycemic consult with pharmacy has been requested (6) Frozen shoulder: Consulted ortho. Ordered x-rays: no signs of fracture, only wear and tear. Likely above diagnosis vs rotator cuff strain. Difficult to ascertain given his lack of mobitlity. Will likely beenfit from steroids however, this may be difficulty given his diabetes. Will place patient on a muscle relaxer. (7) Contusion of left upper arm: currently not complaining of pain. Will monitor. No signs of ecchymosis during hospital stay/ X-ray of humerus was reviewed and is negative for fracture Spent 35 minutes in management of patient.. Results & Data Vital Signs (Past 12 Hours) Vital Signs Temp Pulse Resp BP Pulse Ox 10/30/18 07:05 36.6 C 73 18 131/74 97
--- NOTE | 2018-10-30 14:28 | Gastrointestinal Consultation ---
Date of Consultation October 30, 2018 Assessment & Plan (1) Anemia: Patient is a 73 yo male with anemia, positive hemoccult, & 2 episodes of dark stools today. Baseline hemoglobin since February 2018 has been 9.0-10.5. Currently stable at 9.3/27.5. He is on Xarelto & Plavix for his cardiac issues. Patient has a distant history of a gastric ulcer and has chronic anemia since his Manjula-en-y procedure. Recent EGD performed in March 2018 was unremarkable for acute concerns. Patient just finished his lunch at the time of my evaluation. Given the stability of his H/H and the fact that he has not been NPO, would monitor patient closely and proceed with conservative therapy. Would recommend Protonix 40 mg IV BID and Carafate 1 gm four times daily before meals and at bedtime. If he is to be discharged over the weekend, I would advised continuing on BID PPI therapy indefinitely and continuing Carafate 4 times daily for 10 days. Outpatient follow-up of H/H would be prudent. Continue to monitor H/H & for further signs of bleeding. If patient worsens, can consider further intervention at that time. Thank you for allowing us to participate in the care of this patient. If you should have any further questions or concerns, do not hesitate to contact us at extension [phone] or [phone]. Present on Admission?: Yes (2) Melena: -See treatment plan for anemia Present on Admission?: No Supervising Physician Co-Signing Physician Notes Agree with YANET Koroma as above Abd: Soft, NT, ND, +BS Continue current therapy Carafate added to regimen [facility] covering over the weekend, and I discussed this with Dr. Humphries, for any urgent needs History of Present Illness Reason for Consultation: heme positive stool, anemia Attending Physician: Denver Humphries History of Present Illness Patient is a 73 yo male with a PMH of CKD3, cellulitis, type 2 diabetes mellitus with associated toe ulcerations, chronic venous insufficiency, venous stasis ulcer, CHF and valve replacement, NSTEMI, CAD s/p CABG, HTN, Manjula-en-y bypass, Atrial flutter, & chronic anemia. GI has been consulted for anemia & heme posi tive stool. The patient reports that on 2 occasions he noted his stool appeared darker than usual. He denies abdominal pain, heartburn, reflux, BRBPR, diarrhea, nausea, vomiting, or constipation. He takes Protonix 40 mg daily at home. He reports a recent issue with gout, however he is not certain if he's used NSAIDs. He does take Plavix & Eliquis for his atrial flutter. He had a positive hemoccult. He has been chronically anemic since at least 2011 based on outpatient lab records. He reports that the anemia has been ongoing since his Manjula-en-y procedure. Per the chart, it appears his baseline hemoglobin has been around 9-10.5 since February 2018. In March 2018, he underwent an EGD that showed normal manjula-en-y bypass anatomy without other abnormalities. His last colonoscopy was in 2015 and indicated 2 tubular adenomas and diverticulosis. He just finished eating his lunch around 1:30 PM today. Allergies Allergy/AdvReac Type Severity Reaction Status Date / Time No Known Allergies Allergy Verified 10/26/18 10:07 Home Medications Home Medications Medication Instructions Recorded Confirmed Type apixaban 5 mg tablet 5 mg PO BID 04/07/18 10/26/18 History atorvastatin 80 mg tablet 80 mg PO QPM 04/07/18 10/26/18 History calcitriol 0.5 mcg capsule 0.5 mcg PO DAILY 04/07/18 10/26/18 History cholecalciferol (vitamin D3) 2,000 2,000 units PO DAILY 04/07/18 10/26/18 History unit capsule clopidogrel 75 mg tablet 75 mg PO QPM tab 04/07/18 10/26/18 History cyanocobalamin (vitamin B-12) 1,000 mcg PO DAILY 04/07/18 10/26/18 History 1,000 mcg capsule folic acid 1 mg tablet 1 mg PO DAILY 04/07/18 10/26/18 History furosemide 40 mg tablet 40 mg PO DAILY 04/07/18 10/26/18 History levothyroxine 112 mcg capsule 112 mcg PO DAILY 04/07/18 10/26/18 History magnesium 400 mg (as magnesium 400 mg PO DAILY cap 04/07/18 10/26/18 History oxide) capsule nebivolol 5 mg tablet 0 mg PO DIRECTED PRN tab 04/07/18 10/26/18 History pantoprazole 40 mg tablet,delayed 40 mg PO DAILY 04/07/18 10/26/18 History release vitamin B complex and vitamin C 1 cap PO DAILY 04/07/18 10/26/18 History no.20-folic acid 1 mg capsule Humalog U-100 Insulin 1 sliding scale dose SUBCUT UD 06/18/18 10/26/18 History acyclovir [Zovirax] See Protocol PO DAILY 07/23/18 10/26/18 History Bifidobacterium infantis 4 mg 4 mg PO DAILY 08/26/18 10/26/18 History capsule [place] Caps 1 cap PO DAILY 08/31/18 10/26/18 History amoxicillin-pot clavulanate 1 tab PO BIDM #14 tab 10/30/18 Rx carvedilol 3.125 mg PO BID #60 tab 10/30/18 Rx isosorbide mononitrate 120 mg PO QAM #30 tab 10/30/18 Rx sucralfate 10 ml PO QID 10 Days #1 btl 10/30/18 Rx Patient History Medical History Cellulitis of foot, right (Acute) Diabetes (Chronic) Heart disease (Chronic) Hypertension (Chronic) Kidney failure (Chronic) Stomach problems (Chronic) Kidney stones (Resolved) Basal cell carcinoma of left forehead (Resolved) Chronic kidney disease (Chronic) Anemia (Chronic) Renal tubular acidosis, type 4 (Chronic) Atrial flutter (Resolved 04/03/14) Diabetic foot ulcer associated with type 1 diabetes mellitus (Acute) Foot deformity (Chronic) Pacemaker (Chronic) Diabetic peripheral neuropathy associated with type 1 diabetes mellitus (Chronic) History of diabetic ulcer of foot (Chronic) Acquired claw toe of left foot (Acute) Acquired claw toe of right foot (Acute) Callus (Acute) Diabetes mellitus with diabetic polyneuropathy (Acute) Myocardial infarct (Acute) Neuropathic ulcer of toe of right foot (Acute) Neuropathic ulcer of toe of right foot (Acute) Ulcer of right midfoot (Acute) Ulcer of right midfoot (Acute) Hypothyroidism (Acute) Surgical History Aortic valve replaced (Chronic) Hx of CABG (Resolved) History of artificial heart valve (Resolved 04/03/14) History of amputation of lesser toe of right foot (Acute) History of esophagogastroduodenoscopy (EGD) Social History Preferred Language: Malian Communication Ability: Effective Visual Impairment: Limited 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: Normal Beliefs That Will Affect Care: None marital status: Current Living Situation: Spouse current occupational status: retired Feels Safe at Home: Yes Smoking Status: Never smoker Second Hand Exposure: No Hx Alcohol Use: No Hx Substance Use: No Review of Systems Constitutional: no fever and no chills Eyes: no acute concerns Ear, Nose, Mouth, Throat: no dizziness Respiratory: no cough and no dyspnea Cardiovascular: no chest pain Gastrointestinal: + melena; no abdominal pain, no heartburn, no nausea, no vomiting, no coffee ground emesis and no dysphagia Musculoskeletal: + joint pain Integumentary: no change in skin color Neurologic: no dizziness Psychiatric: no acute complaints Endocrine: no fatigue Physical Exam Constitutional: WD/WN, vitals as above Eyes: PERRL, conjunctivae normal, anicteric sclerae ENMT: external ear and nose normal, oropharynx normal Neck: normal visual inspection Respiratory: normal respiratory effort, lungs clear to auscultation Cardiovascular: Rate/Rhythm: regular rate (irregular rhythm) Gastrointestinal (Abdomen): normal bowel sounds, soft, nontender, no hepatosplenomegaly Musculoskeletal: Head/Neck/Chest: normocephalic Skin: warm, dry Neurologic: Speech / Cognition: normal speech Psychiatric: Orientation: alert and oriented x 3 Results & Data Vital Signs (Past 12 Hours) Vital Signs Temp Pulse Resp BP Pulse Ox 10/30/18 07:05 36.6 C 73 18 131/74 97 (1) Anemia Anemia type: iron deficiency Iron deficiency anemia type: other iron deficiency Qualified Code(s): D50.8 - Other iron deficiency anemias
[2018-10-30] MEDS ORDERED: PANTOprazole 40 MG in SYRINGE 0 ML IV SCH (14:45)
--- NOTE | 2018-10-30 16:50 | Discharge Summary ---
Date of Service October 30, 2018 Admission HPI Per Admitting Provider 73-year-old diabetic male who has a chronic right great toe ulceration and has been seen in the wound clinic. He developed a cellulitic process of the right foot and right leg and started taking oral Keflex yesterday. He was seen in the wound clinic today and he has extensive cellulitis of the right foot and right leg extending up the medial aspect of the right leg into the right thigh area with tenderness and induration. This involves greater than 10% of body surface area. He states he has started to respond to the Keflex since he started taking it. He will be treated with intravenous Ancef. There is no previous history of MRSA. X-ray of the right great toe has been ordered along with blood cultures. He uses an insulin pump which will continue and glycemic consult with pharmacy has been requested. Wound care consultation has also been requested. He is on Eliquis chronically for a mechanical aortic valve replacement that was done several years ago. He has a long list of chronic medical problems. Principal Diagnosis cellulitis of right foot Discharge Exam Constitutional: WD/WN, vitals as above Eyes: PERRL, conjunctivae normal, anicteric sclerae ENMT: external ear and nose normal, oropharynx normal Neck: trachea midline, no thyromegaly Respiratory: normal respiratory effort, lungs clear to auscultation Cardiovascular: Rate/Rhythm: regular rate and regular rhythm Heart Sounds: normal S1, normal S2 and + murmur (Grade 1/6 blowing murmur at the apex) Gastrointestinal (Abdomen): normal bowel sounds, soft, nontender, no hepatosplenomegaly Musculoskeletal: 1-2+ pitting edema bilateral lower extremities below the knees, more pronounced on the right side than the left. Right second toe has been amputated in the past Decreased Tenderness over left trapezius. Decreased (but improved) range of motion on active and passive movements IN ALL PLANES OF LEFT shoulder. Skin: decreased erythema swelling and tenderness of the right foot and right lower extremity below the knee with an area along the medial aspect of the right thigh consistent with cellulitis. The erythema has significantly decreased. Neurologic: CN's II-XI intact bilaterally and moves all extremities; no focal motor deficits Discharge Data Allergies Allergy/AdvReac Type Severity Reaction Status Date / Time No Known Allergies Allergy Verified 11/09/18 09:20 Consultations 10/27/18 13:39 Consult Wound Care Provider Routine 10/28/18 11:58 Consult Orthopedic Surgery Routine 10/29/18 17:03 Consult Vascular Surgery Routine 10/30/18 07:37 Consult Nephrology Routine 10/30/18 12:46 Consult Gastroenterology Routine Ordered Studies 10/26/18 22:12 CT tib/fib RT wo con Urgent US venous doppler LE RT Stat Hospital Course (1) Cellulitis of foot, right: The patient states he started to respond to the outpatient Keflex. Blood cultures obtained. No past history of MRSA. It appears patient is improving will continue to monitor. Stopped cephalosporin and remained on clindamycin. Will add amoxicillin and stop clindamycin overnight. Will continue augmentin as an outpatient. (2) Diabetic foot ulcer: Consult wound care team/ awaiting input. (3) Aortic valve replaced: He had a mechanical aortic valve replaced several years ago. He continues to take Eliquis (4) Chronic kidney disease: Appears acute on chronic kidney disease. Improved. Recommend monitoring as outpatient. (5) Diabetes: Uses an insulin pump. Glycemic consult with pharmacy has been requested (6) Frozen shoulder: Consulted ortho. Ordered x-rays: no signs of fracture, only wear and tear. Likely above diagnosis vs rotator cuff strain. Difficult to ascertain given his lack of mobitlity. Improved with NSAID and muscle relaxer. Will have patient followup with ortho as an outpatient if needed. Will followup with PCP first. (7) Contusion of left upper arm: currently not complaining of pain. Will monitor. No signs of ecchymosis during hospital stay/ X-ray of humerus was reviewed and is negative for fracture Total Time Total Time Spent Total Time Spent (In Minutes): 32 Total Time Includes: Examination of the Patient, Discharge Planning and Medication Reconciliation Discharge Plan Discharge Items Patient Disposition: Home - Self-Care Reason For Visit: RT FOOT ULCER,RT FOOT & LEG CELLULITS Discharge Diagnosis: Right leg cellulitis Discharge Goals: Decrease discomfort Activity: Resume your previous activity Non-emergency contact: Primary Care Provider Call non-emergency contact if: you have any medication questions Follow-up/Referrals: Arnie Jarquin MD [Primary Care Provider] - Diet: Carb Count or DM1 Addtl Provider Instructions: Will recommend checking hemoglobin in 5 days. Checking BMP in 5 days. F/U with GI in about a week. F/U with wound care in about 1 week. Prescriptions: New isosorbide mononitrate 60 mg Tablet Extended Release 24 Hr 120 mg PO QAM Qty: 30 RF: 0 carvedilol 3.125 mg Tablet 3.125 mg PO BID Qty: 60 RF: 0 Continued Align 4 mg capsule 4 mg PO DAILY RF: 0 apixaban 5 mg tablet 5 mg PO BID RF: 0 atorvastatin 80 mg tablet 80 mg PO QPM RF: 0 calcitriol 0.5 mcg capsule 0.5 mcg PO DAILY RF: 0 cholecalciferol (vitamin D3) 2,000 unit capsule 2,000 units PO DAILY RF: 0 clopidogrel 75 mg tablet 75 mg PO QPM RF: 0 cyanocobalamin (vitamin B-12) 1,000 mcg capsule 1,000 mcg PO DAILY RF: 0 folic acid 1 mg tablet 1 mg PO DAILY RF: 0 furosemide 40 mg tablet 40 mg PO DAILY RF: 0 magnesium oxide 400 mg capsule 400 mg PO DAILY RF: 0 B complex with C#20-folic acid [Nephrocaps] 1 mg capsule 1 cap PO DAILY RF: 0 levothyroxine 112 mcg capsule 112 mcg PO DAILY RF: 0 Humalog U-100 Insulin 100 unit/mL Cartridge 1 sliding scale dose SUBCUT UD RF: 0 acyclovir [Zovirax] 400 mg tablet PO DAILY RF: 0 [place] Caps 1 mg Capsule 1 cap PO DAILY RF: 0 Changed pantoprazole 40 mg tablet,delayed release (DR/EC) 40 mg PO BID Qty: 0 RF: 0 Discontinued nebivolol [Bystolic] 5 mg tablet PO DIRECTED PRN (Reason: blood pressure) RF: 0 No Action amoxicillin-pot clavulanate 875-125 mg tablet 1 tab PO BID Qty: 60 RF: 2 Stand-Alone Forms: [facility] Discharge Orders: Discharge Order (Routine); Ordered 10/30/18 Ordered By: Denver Humphries Admission Data Admit Date/Time: 10/26/18 11:20 Attending Provider: Denver Humphries Admit Provider: Virgil Johns Primary Care Provider: Arnie Jarquin Other Providers: Maxx Hall ; Andrew Trujillo Christophe R. ; D onelan, Stephen M. ; Sihne Hua Service: Medical Other Interventions: Discharge Summary Assessment (RN) Last Done: 10/30/18 17:00 DC Date/Time DO NOT enter until pt leaves facility: 10/30/18 17:30
[2018-10-30] MEDS ORDERED: SUCRALFATE 1 GM/10 ML UDC PO SCH (17:00)
[2018-10-30] MEDS ORDERED: AMOXICILLIN/CLAVULANATE 500 MG TAB PO SCH (17:00)
--- NOTE | 2018-10-30 17:22 | Cardiology Consultation ---
Date of Consultation October 30, 2018 Assessment & Plan (1) Diabetic foot ulcer: 2. Small vessel lower extremity peripheral arterial disease 3. Coronary artery disease post CABG 4. Advanced chronic renal insufficiency 5. Prior AVR 6. Paroxysmal atrial fibrillation on anticoagulation 7. Anemia of chronic disease 8. Chronic venous insufficiency post SSV venaseal on LT. Patient with prior lower extremity arterial duplex suggesting patent inflow, SFA popliteal vessels. Some suggestion of tibial vessel disease but prior toe pressures suggested adequate perfusion for wound healing. In the setting of ulceration feel reasonable to reassess lower extremity arteries. Would like to avoid angiogram in the setting of patient's advanced renal function unless absolutely necessary. Plan to repeat lower extremity arterial duplex next week as an outpatient. This will be arranged by elli. Thank you for allowing us to participate in the care of this patient. Please contact with any questions. History of Present Illness Attending Physician: Denver Humphries History of Present Illness Mr. Blake is a 73-year-old man with a complex past medical history known to me from prior inpatient cardiac care and prior visits at wound clinic seen in the setting of venous insufficiency/PAD. Patient is followed by Dr. Herrmann for his cardiac care. Cardiac history outlined below. Vascular history remarkable for previously documented carotid artery disease, renal artery stenosis. Seen in July due to left lower extremity venous stasis ulcers and underwent SSV VenaSeal ablation without issue. Admitted currently with RLE cellulitis and RT great toe ulceration. Cellulitis responded to antibiotics and being discharged today. Reason vascular testing: Venous reflux ultrasound 07/17/2018: Right GSV previously harvested, distal vessel not dilated, shows reflux. Left GSV previously harvested distally not dilated and shows reflux. Left SSV dilated and shows reflux DOM: Noncompressible, right TBI 0.66, left 0.90 Arterial duplex: <50% disease bilaterally to TP trunks bilaterally. Diffuse tibial disease with monophasic waveforms and distal right, left MANUEL's occluded. Past medical history: 1. Long-standing coronary artery disease post three-vessel CABG in 1993, RCA IBRAHIMA in 2002, single vessel CABG with vein graft to PDA in July 2012 in the setting of bioprosthetic aortic valve replacement. 2. Bioprosthetic AVR 3. Complete heart block status post [place] [employer] dual-chamber pacemaker. 4. Paroxysmal atrial fibrillation. 5. Peripheral arterial disease including carotid artery, renal artery disease 6. Type 2 diabetes 7. Chronic renal insufficiency, baseline creatinine around 2 8. Anemia of chronic disease 9. History of gastric bypass Allergies Allergy/AdvReac Type Severity Reaction Status Date / Time No Known Allergies Allergy Verified 10/26/18 10:07 Home Medications Home Medications Medication Instructions Recorded Confirmed Type apixaban 5 mg tablet 5 mg PO BID 04/07/18 10/26/18 History atorvastatin 80 mg tablet 80 mg PO QPM 04/07/18 10/26/18 History calcitriol 0.5 mcg capsule 0.5 mcg PO DAILY 04/07/18 10/26/18 History cholecalciferol (vitamin D3) 2,000 2,000 units PO DAILY 04/07/18 10/26/18 History unit capsule clopidogrel 75 mg tablet 75 mg PO QPM tab 04/07/18 10/26/18 History cyanocobalamin (vitamin B-12) 1,000 mcg PO DAILY 04/07/18 10/26/18 History 1,000 mcg capsule folic acid 1 mg tablet 1 mg PO DAILY 04/07/18 10/26/18 History furosemide 40 mg tablet 40 mg PO DAILY 04/07/18 10/26/18 History levothyroxine 112 mcg capsule 112 mcg PO DAILY 04/07/18 10/26/18 History magnesium 400 mg (as magnesium 400 mg PO DAILY cap 04/07/18 10/26/18 History oxide) capsule vitamin B complex and vitamin C 1 cap PO DAILY 04/07/18 10/26/18 History no.20-folic acid 1 mg capsule Humalog U-100 Insulin 1 sliding scale dose SUBCUT UD 06/18/18 10/26/18 History acyclovir [Zovirax] See Protocol PO DAILY 07/23/18 10/26/18 History Bifidobacterium infantis 4 mg 4 mg PO DAILY 08/26/18 10/26/18 History capsule [place] Caps 1 cap PO DAILY 08/31/18 10/26/18 History amoxicillin-pot clavulanate 1 tab PO BIDM #14 tab 10/30/18 Rx carvedilol 3.125 mg PO BID #60 tab 10/30/18 Rx isosorbide mononitrate 120 mg PO QAM #30 tab 10/30/18 Rx pantoprazole 40 mg PO BID #0 tab 10/30/18 10/26/18 Rx sucralfate 10 ml PO QID 10 Days #1 btl 10/30/18 Rx Patient History Medical History Cellulitis of foot, right (Acute) Diabetes (Chronic) Heart disease (Chronic) Hypertension (Chronic) Kidney failure (Chronic) Stomach problems (Chronic) Kidney stones (Resolved) Basal cell carcinoma of left forehead (Resolved) Chronic kidney disease (Chronic) Anemia (Chronic) Renal tubular acidosis, type 4 (Chronic) Atrial flutter (Resolved 04/03/14) Diabetic foot ulcer associated with type 1 diabetes mellitus (Acute) Foot deformity (Chronic) Pacemaker (Chronic) Diabetic peripheral neuropathy associated with type 1 diabetes mellitus (Chronic) History of diabetic ulcer of foot (Chronic) Acquired claw toe of left foot (Acute) Acquired claw toe of right foot (Acute) Callus (Acute) Diabetes mellitus with diabetic polyneuropathy (Acute) Myocardial infarct (Acute) Neuropathic ulcer of toe of right foot (Acute) Neuropathic ulcer of toe of right foot (Acute) Ulcer of right midfoot (Acute) Ulcer of right midfoot (Acute) Hypothyroidism (Acute) Surgical History Aortic valve replaced (Chronic) Hx of CABG (Resolved) History of artificial heart valve (Resolved 04/03/14) History of amputation of lesser toe of right foot (Acute) History of esophagogastroduodenoscopy (EGD) Social History Preferred Language: [place] Communication Ability: Effective Visual Impairment: Limited 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: Normal Beliefs That Will Affect Care: None marital status: Current Living Situation: Spouse current occupational status: retired Feels Safe at Home: Yes Smoking Status: Never smoker Second Hand Exposure: No Hx Alcohol Use: No Hx Substance Use: No Review of Systems Review of Systems: All systems reviewed & are unremarkable except as noted in HPI & below Physical Exam Physical Exam: General: Comfortable, no acute distress HEENT: Sclerae anicteric, mucous membranes moist Lungs: Clear to auscultation bilaterally, no rhonchi or wheezes Cardiac: Regular rate and rhythm Abdomen: Soft, nontender, nondistended, positive bowel sounds. Extremities: Right lower extremity with 2+ edema to the [place] erythema receded from prior markings over legs extending up to the thigh, superficial necrotic tissue at the tip of right great first toe. No surrounding erythema. Diminished cap refill in remaining toes. Diminished DP/PT pulses on the right Neuro: Nonfocal Psych: Alert orient x3, normal affect and mood Results & Data Vital Signs (Past 12 Hours) Vital Signs Temp Pulse Pulse Resp BP BP Pulse Ox 10/30/18 17:00 36.7 C 78 62 18 131/74 126/62 98 10/30/18 15:45 36.7 C 62 18 126/62 98 10/30/18 07:05 36.6 C 73 18 131/74 97
== END 2018-10-30 17:30 | disposition home or self-care (01) | DRG 638 ==
LOC: 4E 11:20 → SUATTDRO 11:20
DX: W22.8XXA Striking against or struck by other objects, initial encounter; I25.10 Atherosclerotic heart disease of native coronary artery without angina pectoris; Z79.4 Long term (current) use of insulin; I25.2 Old myocardial infarction; E11.51 Type 2 diabetes mellitus with diabetic peripheral angiopathy without gangrene; Z87.11 Personal history of peptic ulcer disease; L97.519 Non-pressure chronic ulcer of other part of right foot with unspecified severity; E11.621 Type 2 diabetes mellitus with foot ulcer; Z95.1 Presence of aortocoronary bypass graft; Y92.238 Other place in hospital as the place of occurrence of the external cause; Z98.84 Bariatric surgery status; B95.61 Methicillin susceptible Staphylococcus aureus infection as the cause of diseases classified elsewhere; Z89.421 Acquired absence of other right toe(s); E11.22 Type 2 diabetes mellitus with diabetic chronic kidney disease; D63.1 Anemia in chronic kidney disease; Z79.899 Other long term (current) drug therapy; Z79.01 Long term (current) use of anticoagulants; Z79.02 Long term (current) use of antithrombotics/antiplatelets; Z95.0 Presence of cardiac pacemaker; I48.0 Paroxysmal atrial fibrillation; M54.2 Cervicalgia; Z96.41 Presence of insulin pump (external) (internal); M25.561 Pain in right knee; S40.022A Contusion of left upper arm, initial encounter; K92.1 Melena; N17.9 Acute kidney failure, unspecified; N18.3 Chronic kidney disease, stage 3 (moderate); E11.628 Type 2 diabetes mellitus with other skin complications; Z95.2 Presence of prosthetic heart valve; D50.9 Iron deficiency anemia, unspecified; I12.9 Hypertensive chronic kidney disease with stage 1 through stage 4 chronic kidney disease, or unspecified chronic kidney disease; E11.21 Type 2 diabetes mellitus with diabetic nephropathy; L03.115 Cellulitis of right lower limb; E03.9 Hypothyroidism, unspecified; I87.2 Venous insufficiency (chronic) (peripheral); M75.02 Adhesive capsulitis of left shoulder

== ENCOUNTER 2019-01-19 07:49 | Inpatient (IN) ==
--- NOTE | 2019-01-06 14:02 | PAT Medication Instructions ---
Medication Instructions Date of Service January 06, 2019 Home Medications Medication Instructions Recorded pantoprazole 40 mg PO BID #0 tab 10/30/18 amoxicillin 875 mg-potassium 1 tab PO BID #60 tab 12/03/18 clavulanate 125 mg tablet clopidogrel 75 mg tablet 75 mg PO QPM #90 tab 12/28/18 nebivolol 10 mg tablet 10 mg PO BID #180 tab 12/30/18 atorvastatin 80 mg tablet 80 mg PO QPM cholecalciferol (vitamin D3) 2,000 unit capsule 2,000 units PO DAILY cyanocobalamin (vitamin B-12) 1,000 mcg capsule 1,000 mcg PO DAILY folic acid 1 mg tablet 1 mg PO DAILY levothyroxine 112 mcg capsule 112 mcg PO QAM magnesium 400 mg (as magnesium oxide) capsule 400 mg PO DAILY Humalog U-100 Insulin 1 sliding scale dose SUBCUT acyclovir [Zovirax] See Protocol PO DAILY Bifidobacterium infantis 4 mg capsule 4 mg PO DAILY pantoprazole 40 mg PO BID amoxicillin 875 mg-potassium clavulanate 125 mg tablet 1 tab PO BID calcium citrate 1 ea PO DAILY clopidogrel 75 mg tablet 75 mg PO QPM furosemide 40 mg tablet 40 mg PO DAILY NEEDED nebivolol 10 mg tablet 10 mg PO BID apixaban 5 mg tablet 5 mg PO BID atorvastatin 80 mg tablet 80 mg PO DAILY B complex with C 20-folic acid [Renal Caps] 1 cap PO DAILY isosorbide mononitrate 180 mg PO QAM vit C,P-[id number]-umuit-lutein-zeaxan [PreserVision AREDS-2] 1 tab PO BID Continue as directed acyclovir [Zovirax] See Protocol PO DAILY ASK your prescriber and surgeon clopidogrel 75 mg tablet 75 mg PO QPM apixaban 5 mg tablet 5 mg PO BID STOP taking 2 weeks before surgery vit C,T-Wo-weilr-lutein-zeaxan [PreserVision AREDS-2] 1 tab PO BID DO NOT take the morning of surgery furosemide 40 mg tablet 40 mg PO DAILY NEEDED B complex with C 20-folic acid [Renal Caps] 1 cap PO DAILY Take morning of surgery With a small sip of water, OTHERWISE NOTHING TO EAT OR DRINK AFTER MIDNIGHT: levothyroxine 112 mcg capsule 112 mcg PO QAM pantoprazole 40 mg PO BID amoxicillin 875 mg-potassium clavulanate 125 mg tablet 1 tab PO BID nebivolol 10 mg tablet 10 mg PO BID atorvastatin 80 mg tablet 80 mg PO DAILY isosorbide mononitrate 180 mg PO QAM Take evening before surgery atorvastatin 80 mg tablet 80 mg PO QPM pantoprazole 40 mg PO BID amoxicillin 875 mg-potassium clavulanate 125 mg tablet 1 tab PO BID nebivolol 10 mg tablet 10 mg PO BID cholecalciferol (vitamin D3) 2,000 unit capsule 2,000 units PO DAILY cyanocobalamin (vitamin B-12) 1,000 mcg capsule 1,000 mcg PO DAILY folic acid 1 mg tablet 1 mg PO DAILY magnesium 400 mg (as magnesium oxide) capsule 400 mg PO DAILY Bifidobacterium infantis 4 mg capsule 4 mg PO DAILY calcium citrate 1 ea PO DAILY Insulin Dependent Diabetic Patients Humalog U-100 Insulin 1 sliding scale dose SUBCUT via insulin pump - morning of surgery, set at basal rate, no boluses Other Notes If you have any questions please call us at [phone] or [phone] or [phone] or [phone]
--- NOTE | 2019-01-06 15:43 | Anesthesiology Consultation ---
Date of Service January 06, 2019 Assessment & Plan (1) Encounter for pre-operative examination: Chart Review Chart Review: Acceptable Risk for Surgery and Patient seen in Pre Admission Testing Consults Requested medical & cardiac (Dr. Bird & Dr. Jarquin) Patient was seen by cardiology on 01/11 for preoperative evaluation. Per note from that visit, "No absolute contraindications to undergoing his toe amputation January 19, 2019. In light of his coronary artery disease he is obviously at increased risk. However, it may be best to eliminate any site of infection prior to him undergoing cardiac catheterization and possible stent placement. This is in the event that his cardiac condition remains unchanged. Certainly if his anginal symptoms worsen than a more urgent cardiac catheterization procedure would be indicated. The patient had been tentatively scheduled to undergo cardiac cath on February 01." Patient was seen by PCP on 01/07 for preoperative evaluation. Per note from that visit, "He has been cleared by cardiology. He is to stop eliquis 3 days prior to surgery and is to remain on his plavix. He is high risk for surgery given his medical issues. He is cleared pending anesthesia approval, and should follow up after his procedure." Teaching & Discussion Pre-Anesthesia Teaching/Discussion Notes: Instructed NPO after midnight before surgery, except medications with 15 cc of water. Medication instructions provided according to the PAT guidelines. History Surgery Operation Date: 01/19/19 10:20 Proposed Procedures p Right Big Toe Partial Amputation - Ez Ayoub MD Height/Weight Height: 5 ft 10 in Weight: 84.5 kg Allergies Allergy/AdvReac Type Severity Reaction Status Date / Time No Known Allergies Allergy Verified 01/11/19 14:20 Medications Home Medications Medication Instructions Recorded Confirmed Last Taken atorvastatin 80 mg tablet 80 mg PO QPM 04/07/18 01/11/19 04/14/18 20:00 cholecalciferol (vitamin D3) 2,000 2,000 units PO DAILY 04/07/18 01/11/19 04/14/18 20:00 unit capsule cyanocobalamin (vitamin B-12) 1,000 mcg PO DAILY 04/07/18 01/11/19 04/14/18 20:00 1,000 mcg capsule folic acid 1 mg tablet 1 mg PO DAILY 04/07/18 01/11/19 04/14/18 20:00 levothyroxine 112 mcg capsule 112 mcg PO QAM 04/07/18 01/11/19 04/14/18 06:30 magnesium 400 mg (as magnesium 400 mg PO DAILY cap 04/07/18 01/11/19 04/14/18 20:00 oxide) capsule Humalog U-100 Insulin 1 sliding scale dose SUBCUT UD 06/18/18 01/11/19 Unknown acyclovir [Zovirax] See Protocol PO DAILY 07/23/18 01/11/19 Unknown Bifidobacterium infantis 4 mg 4 mg PO DAILY 08/26/18 01/11/19 Unknown capsule pantoprazole 40 mg PO BID #0 tab 10/30/18 01/11/19 04/15/18 06:30 amoxicillin 875 mg-potassium 1 tab PO BID #60 tab 12/03/18 01/11/19 Unknown clavulanate 125 mg tablet calcium citrate 1 ea PO DAILY 12/28/18 01/11/19 Unknown clopidogrel 75 mg tablet 75 mg PO QPM #90 tab 12/28/18 01/11/19 Unknown furosemide 40 mg tablet 40 mg PO DAILY PRN 12/28/18 01/11/19 Unknown nebivolol 10 mg tablet 10 mg PO BID #180 tab 12/30/18 01/11/19 Unknown apixaban 5 mg tablet 5 mg PO BID 12/31/18 01/11/19 Unknown blood-glucose transmitter device #1 ea 12/31/18 01/11/19 Unknown subcutaneous insulin pump #1 ea 12/31/18 01/11/19 Unknown B complex with C 20-folic acid 1 cap PO DAILY 01/04/19 01/11/19 Unknown [Renal Caps] isosorbide mononitrate 180 mg PO QAM 01/04/19 01/11/19 Unknown vit C,M-Zc-ixmts-lutein-zeaxan 1 tab PO BID 01/04/19 01/11/19 Unknown [PreserVision AREDS-2] Past Medical History Medical History Hypertension (Chronic) Basal cell carcinoma of left forehead (Resolved) Renal tubular acidosis, 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 BIRD - STABLE SINCE 2005 Chronic kidney disease FOLLOWS W/ DR. COUGHLIN History of atrial fibrillation DX FALL 2017 - ON ELIQUIS - S/P CARDIAC ABLATION - FOLLOWS W/ DR. BIRD History of atrial flutter History of kidney stones Hypothyroidism On anticoagulant therapy Osteomyelitis Pacemaker 2012 - [employer] - LAST CHECKED 09/2018 Exercise / Class Metabolic Activity III < 4 Walking/Shop/Light housework (Cares for his horses and walks alot. Decreasing since NC in 06/13. Has increasing CP and SOB since 06/13. ) Past Family History Family History Father Coronary heart disease Myocardial infarction Brother Diabetes Mother Diabetes Past Surgical History Surgical History History of amputation of lesser toe of right foot (Acute) History of aortic valve replacement 2012 History of appendectomy History of cardiac cath 2016 - [facility] NO STENTS/ANGIOPLASTY 2006 - [facility] - 1 STENT PLACED 2011 - [facility] - NO STENTS 1993 --> CABG History of coronary artery bypass graft x 3 1993 History of cystoscopy W/ STONE EXTRACTION 03/20/17: LMA #5 History of esophagogastroduodenoscopy (EGD) History of gastric bypass 20 YEARS AGO - FOR DM History of hand surgery Lt History of inguinal hernia repair Rt 03/02/14: MAC #4, ETT #7.5, Oral, Grade 2 View History of laminectomy CERVICAL SPINE History of radiofrequency ablation procedure for cardiac arrhythmia History of tonsillectomy Hx of heart artery stent 2006 Past Anesthesia History No Hx of Anesthesia Complications and No Family Hx of Anesthesia Complications History of PONV No Hx of PONV and No Hx of Motion Sickness Social History Smoking Status: Never smoker Do You Dip or Chew Tobacco: No Hx Alcohol Use: No Hx Substance Use: No Review of Systems Patient denies joint pain, cough, wheezing, palpitations. +CP/BEAN (Since NC in 06/13) +Acid Reflux (controlled with current medications) +palpitations (Occasionally due to a.fib - none since ablation) Physical Exam Vital Signs BP: 136/80 P: 74 R: 16 T: 97.6 SPO2: 99% on RA ENMT Thyromental Distance: < 3.5 Finger Breadths (3) Mallampati Class: I Many missing teeth Neck normal visual inspection; neck extension not limited Respiratory normal respiratory effort Auscultation: lungs clear to auscultation bilaterally Cardiovascular Rate/Rhythm: regular rate and regular rhythm Heart Sounds: + murmur (1/6) Vessels: + carotid bruit (R>L) Chest (Breasts) Chest: + pacemaker ([employer]) Neurologic moves all extremities Psychiatric Orientation: alert and oriented x 3 Testing Laboratory Results 01/06/19 15:20 Laboratory Tests 11/04/18 12/28/18 09:54 14:33 WBC 6.81 Hgb 11.3 L Hct 34.4 L Plt Count 166 Hemoglobin A1c 7.4 H Electrocardiogram Date: 12/28/18 Electronic atrial and ventricular pacemaker @ 71 bpm Chest X-Ray Date: 01/06/19 IMPRESSION: 1. Chronic postsurgical changes with possible chronic small left pleural effusion or pleural thickening with left basilar scarring. No convincing evidence of acute cardiopulmonary disease. Echocardiogram Date: 06/19/18 EF: 60-65% LV Function: normal Other Findings: + LVH (mild, concentric) Bioprosthetic aortic valve with expected transvalvular gradients. Basal inferior, inferolateral hypokinesis Moderate RV dysfunction Mild to moderate mitral regurgitation. Compared with prior study on 04/03/14; RWMA and RV dysfunction is new. Cardiac Catheterization Date: 08/01/17 Summary: 1. Patent MOROCHO-LAD, and vein grafts to diagonal, OM and R-PDA - 50-60% proximal SVG-OM 2. Severe [place] small vessel disease - 60-70% proximal, 95% mid segment stenosis prior to 1st septal - 70% R-PDA after SVG anastomosis - 70% stenosis at anastomosis of SVG-OM Recommendations: -Recommend optimizing antianginal therapy for small vessel disease -Continued ASCVD risk factor modification -Can resume anticoagulation -Follow-up with Dr. 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
--- NOTE | 2019-01-06 16:18 | XRay Report ---
XR chest Pre-admission PA/Lat CLINICAL HISTORY: 73 years-old Male presenting with preoperative assessment. TECHNIQUE: PA and lateral views of the chest were obtained. COMPARISON: 10/26/2018. FINDINGS: Left subclavian pacer with leads in the right atrium and right ventricular apex. Median sternotomy wi res and prosthetic aortic valve. Mediastinal surgical clips. Atherosclerosis of the aortic arch. Card iac silhouette top normal in size. Chronic blunting of the left cardiophrenic angle with bandlike [place] at the left lung base. Right lung and pleural space clear. No pneumothorax. Degenerative samuel es of the thoracic spine with mildly exaggerated thoracic kyphosis and trace height loss suggested in mid thoracic vertebral bodies. Surgical clip projects over the epigastrium. IMPRESSION: 1. Chronic postsurgical changes with possible chronic small left pleural effusion or pleural thicken ing with left basilar scarring. No convincing evidence of acute cardiopulmonary disease. Electronically signed by: Ez Salazar M.D. 01/06/2019 4:17 PM
[2019-01-06 16:53] LABS: BUN Creatinine Ratio 27.7 (10-20); Calcium 8.9 mg/dl (8.5-10.1); Creatinine Clr Calc Pharmacy 32.8 ml/min; Est GFR (African American) 36.5; Est GFR (Non-African American) 31.5; Potassium 5.3 mmol/L (3.5-5.1)
--- NOTE | 2019-01-11 17:18 | History and Physical Report ---
DATE OF ADMISSION: 01/19/2019 HISTORY OF PRESENT ILLNESS: A 73-year-old male here today for evaluation of his right great toe. 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 He states that in September, he had a callus debrided by Dr. Patel on his right big toe. He was then referred to a different vehicle damage appraiser who debrided that callus further. At some time, he developed an infection and was admitted to [facility] early October. He was placed on antibiotics at that time and discharged. He has been on oral antibiotics since October and has been following up in the diabetic foot clinic. He reports some aching in the toe, otherwise not significant pain. He has had some redness and swelling. He also had some drainage which persisted up until about 10-14 days ago. He was seen and evaluated by Dr. Ayoub. He had x-rays of his toe which show progressive erosion of the distal phalanx of the big toe consistent with osteomyelitis. He was unable to have an MRI due to him having a pacemaker. Due to those findings of nonhealing wound and osteomyelitis, surgical intervention was recommended and he was scheduled for right big toe partial amputation by Dr. Ayoub on 01/19/2019. PAST MEDICAL HISTORY: 1. Aortic valve disease. 2. Atherosclerosis. 3. Coronary artery disease. 4. Carotid stenosis. 5. Chronic kidney disease. 6. Diabetes mellitus. 7. Hypertension. 8. Hyperlipidemia. 9. Peripheral neuropathy. 10. Osteomyelitis of his right great toe. 11. Peripheral vascular disease. 12. Venous insufficiency. CURRENT MEDICATIONS: 1. Acyclovir 400 mg daily. 2. Atorvastatin 80 mg 1 tab p.o. at bedtime. 3. Augmentin 800 mg q. 12 hours. 4. Citracal plus vitamin D3 15 mg/250 international units 1 tab p.o. b.i.d. 5. Eliquis 5 mg 1 tab p.o. b.i.d. 6. Folic acid 1000 mcg p.o. daily. 7. Humulin insulin pump as indicated. 8. Isosorbide mononitrate 30 mg daily. 9. Lasix 40 mg 1 tab p.o. b.i.d. as needed. 10. Levothyroxine 112 mcg p.o. daily. 11. Nephrocaps oral capsule 1 capsule p.o. daily. 12. Nitrostat 0.4 mg sublingual tablet 1 tablet sublingual q. 5 minutes as needed for chest pain. 13. Plavix 75 mg 1 tab p.o. daily. 14. PreserVision AREDS 2 oral capsules 1 capsule p.o. b.i.d. 15. Protonix 40 mg daily. 16. Tylenol 325 mg tablet 2 tabs p.o. q. 6 hours as needed for pain. 17. Vitamin B12 500 mcg daily. 18. Vitamin D3 2000 international units daily. ALLERGIES: He has no known drug allergies. PAST SURGICAL HISTORY: 1. Insertion of permanent pacemaker in July of 2012. 2. Coronary artery bypass graft x1 in July of 2012. 3. Appendectomy. 4. Aortic valve replacement. 5. Coronary artery bypass graft x3. 6. Gastric bypass operation. 7. Primary repair of inguinal hernia. 8. Tonsillectomy. SOCIAL HISTORY: He denies ever using any tobacco or cigarettes. Denies any alcohol or recreational drug use. FAMILY HISTORY: His mother has a history of cancer. Brother had a history of diabetes and father had a history of heart disease. REVIEW OF SYSTEMS: Denies any chest pain, shortness of breath, history of sleep apnea. Denies any abdominal pain, nausea, vomiting, constipation. He did have an episode of diarrhea from the antibiotics, but states that is back to normal. He occasionally gets some mild angina and chest discomfort which he states is from his pacemaker. Denies any shortness of breath. Denies any lightheadedness, dizziness, headaches, migraines, seizures, syncopal episodes. Denies any fevers, chills or flu-like symptoms. Denies any history of bleeding or clotting disorders, but states he does bleed easily due to being on the Eliquis and Plavix. He denies any history of DVT or pulmonary embolism. Denies any history of sleep apnea. Denies any trouble urinating or prostate problems. Denies any hearing loss and does not use hearing aids. Denies any dental problems. He does wear contacts to correct his vision. PHYSICAL EXAMINATION: GENERAL: He is alert and oriented x3. He is in no acute distress, well-dressed, well-nourished elderly male. Normal mood and affect. Height is 175 cm, weight is 85 kilograms. VITAL SIGNS: On 09/06/2018, temperature is 36.6, blood pressure is 115/84, heart rate of 68, respiratory rate is 14 and oxygenation on room air is 99%. HEENT: Head is atraumatic, normocephalic. Eyes: Extraocular movements intact. Pupils equal, round, reactive to light. Sclerae are normal. Ears: Hearing is grossly normal. TMs are clear, normal light reflex. Nose: Nares are patent bilaterally. Throat: Oropharynx clear. Mucous membranes moist. Good dentition. Uvula midline. NECK: Supple, no lymphadenopathy, nontender to palpation. Tolerates gentle range of motion. LUNGS: Clear to auscultation bilaterally. No adventitious sounds. Chest is nontender to palpation. HEART: Regular rate and rhythm. Normal S1, S2. No murmurs appreciated. ABDOMEN: Soft, nontender, nondistended. Normal bowel sounds heard in all 4 quadrants. EXTREMITIES: Examination of his right foot reveals eschar at the tip of the toe which is removed with no erythema or edema of his right foot. There is granulating wound beneath the eschar perhaps a cm long and 2-3 mm wide. It does not probe to bone. The nail has previously been ablated. The second toe is missing. The third toe is marked crooked and the fourth toe is partially missing as well. Dorsalis pedis is not palpable. There is edema of the right lower leg. The posterior tibial pulse is 1+. There is some bleeding at the bed of the wound and capillary refill is less than 2 seconds. Sensation is intact. He can flex and extend the toe and ankle. He has an offloading postop shoe. RADIOLOGY IMAGES: X-rays of his right foot reveal progressive erosion of the distal phalanx of the big toe consistent with osteomyelitis. MRI has not been obtained due to him having a pacemaker. ASSESSMENT: Chronic osteomyelitis with draining sinus, right great toe. PLAN: The patient is scheduled for right great toe partial amputation with Dr. Ayoub on 01/19/2019 at the [facility]. He will have preadmission testing later today. There, he did have recent lab work, EKG. 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 He will most likely stay overnight for postoperative pain control and medical management. We will obtain a hospitalist consult postoperatively as needed for medical management as well as a probable glycemic control consult as well after surgery. Postoperative course was discussed. We talked about needing an assistive device such as a walker or cane after surgery. He does not feel that he is going to need that, he does have a postop shoe which he will bring on the day of surgery. He was instructed on usage of CHG cloths prior to surgery. All questions were answered. He knows to call with any further problems, questions, or concerns. He will follow up appropriately 4-5 days after surgery for dressing change and 10-14 days postoperatively for suture removal potentially. All questions were answered.
[~2019-01-19 07:49] MED LIST changes: -AMLO2.5T PO; -ATOR-26 PO; -B-CO1CAP17 PO; -BYS/5 PO; -CALC0.5C PO; +CEFAZOLIN 2000MG 2,000 MG/15 ML SYR IV SCH; -CHOL2000 PO; -CLOP1TAB15 PO; -CYAN100020 PO; -ELQ25 PO; -FERR1TAB23 PO; -FOLI1TAB8 PO; -FRS/40 PO; -INSPMPHMLG; -IRON1CAP2 PO; -ISOS30TA3 PO; +LACTATED RINGER'S 1,000 ML IV SCH; +LIDOCAINE HCL 2% (LOCAL) INJ 50 ML VIAL ONE; -MAGN400T6 PO; -MISCCAP80 PO; -MULT-190 PO; -NTRGSL/4 UT; -PANT40TA PO; +ROPIVACAINE 0.5% 5 MG/ML 30 ML VIAL ONE; +SODIUM CHLORIDE 0.9% 1000ML IV SCH; -ZVR400 PO
[2019-01-19] MEDS ORDERED: MIDAZOLAM HCL 1 MG/ML 2ML VIAL ONE (08:14)
[2019-01-19] MEDS ORDERED: PROPOFOL IV EMULSION 10 MG/ML 20 ML VIAL IV ONE ×2 (08:15→11:24)
[2019-01-19] MEDS ORDERED: LIDOCAINE HCL 2% 2 ML VIAL/AMP(20MG/ML) INFIL ONE (08:15)
[2019-01-19] MEDS ORDERED: fentaNYL citrate 100 MCG/2 ML VIAL ONE (08:15)
[2019-01-19] MEDS ORDERED: ATROPINE SULFATE 0.1 MG/ML 10ML SYR IV PRN (10:16)
[2019-01-19] MEDS ORDERED: ePHEDrine sulfate 50 MG/ML AMP IV PRN (10:16)
[2019-01-19] MEDS ORDERED: LIDOCAINE HCL 1% 20 ML VIAL ONE (10:37)
[2019-01-19] MEDS ORDERED: BUPIVACAINE 0.5 % 5 MG/1 ML MPF 30ML VIAL ONE (10:38)
--- NOTE | 2019-01-19 10:51 | History & Physical Bridge Note ---
Date of Service January 19, 2019 History & Physical Bridge Note I have examined the patient, reviewed the History & Physical and in the interval since the performance of the History & Physical I have noted the following changes of clinical significance: plaVIX CONTINUED PER CARDIOLOGY, ELiQUIS STOPPED 3 DAY AGO, no changes noted
[2019-01-19] MEDS ORDERED: ONDANSETRON INJ 2 MG/ML 2 ML VIAL ONE (11:24)
[2019-01-19] MEDS ORDERED: NEOSTIGMINE METHYLSULFATE 5 MG/5 ML SYR ONE (11:24)
[2019-01-19] MEDS ORDERED: PHENYLEPHRINE 100MCG/ML 5ML SYR ONE (11:37)
--- NOTE | 2019-01-19 11:53 | Post Operative Brief Note ---
Immediate Post Op Note v1 Date of Surgery January 19, 2019 Pre & Post Diagnosis Operation Date: 01/19/19 10:20 Pre-Op Diagnosis: Right Great Toe Osteomyelitis Post-Op Diagnosis: Right Great Toe Osteomyelitis Procedure Operation Date: 01/19/19 10:20 Actual Procedures p Right Great Toe Syme Amputation(Right) - Ez Ayoub MD Surgeon Ez Ayoub MD Tank Builder Helper bear Estimated Blood Loss 1 Findings Consistent with Post-Op Diagnosis Anesthesia Type MAC Regional Complications none Disposition Accompanied Patient To Recovery: No Disposition: Recovery Room
--- NOTE | 2019-01-19 11:58 | Operative Report ---
Post Operative Report Pre & Post Diagnosis Operation Date: 01/19/19 10:20 Pre-Op Diagnosis: Right Great Toe Osteomyelitis Post-Op Diagnosis: Right Great Toe Osteomyelitis Procedure Operation Date: 01/19/19 10:20 Actual Procedures p Right Great Toe Syme Amputation(Right) - Ez Ayoub MD Surgeon Ez Ayoub M.D. Sec Reporting Consultant Liza Milner PA-C Estimated Blood Loss 1 Findings Consistent with Post-Op Diagnosis Specimens Right distal phalanx Anesthesia Type MAC Regional Complications none Description of Procedure Patient was taken to the operating room, placed under IV sedation, given digital nerve block. Time out performed. Given 2gm IV Ancef for surgical prophylaxis. I was present during the entire case, and assisted with amputation, exposure, irrigation, closure and dressings. Please see Dr. Ayoub's operative report for further detail. Patient was awakened and taken to the recovery room in stable condition. I attest to the content of the Intraoperative Record and any orders documented therein. Any exceptions are noted below.
--- NOTE | 2019-01-19 12:11 | Operative Report ---
Post Operative Report Pre & Post Diagnosis Operation Date: 01/19/19 10:20 Pre-Op Diagnosis: Right Great Toe Osteomyelitis Post-Op Diagnosis: Right Great Toe Osteomyelitis Procedure Operation Date: 01/19/19 10:20 Actual Procedures p Right Great Toe Syme Amputation(Right) - Ez Ayoub MD Surgeon Ez Ayoub MD Director Of Direct Marketing Liza Milner PA-C Estimated Blood Loss 1 Findings Consistent with Post-Op Diagnosis No abscess. Soft tip of distal phalanx. Specimens Culture of distal phalangeal bone, swab. Distal phalanx with surrounding dorsal skin. Disposition Accompanied Patient To Recovery: No Disposition: Recovery Room Indications Patient 73 years old. Diabetes. Vascular evaluation is been performed and determined to be adequate. He has had a ulceration at the tip of the toe. The great toe on the right foot. Culture has grown out staph. X-rays show progressive distal phalangeal erosion consistent with osteomyelitis. He is taken to surgery for a distal phalangeal amputation. Description of Procedure Informed consent obtained. Patient identified. He identified the operative site as the right big toe. I marked with my initials. Preop surgical timeout was performed and a preop dose of IV antibiotics was given. He was taken to the operating room positioned supine on the table. Tourniquet on the right calf below the fibular neck. There was a eschar over the tip of the right great toe. The nail had been previously ablated. There is no erythema or swelling. The foot was prepped and draped in usual sterile fashion. DVT prophylaxis with early patient mobility and restarting the blood thinner. The patient has been seen and evaluated by cardiology. It was recommended he continue his Plavix. He has not had any lower extremity bypasses. He is Eliquis was discontinued 3 days prior to surgery. The limb was exsanguinated with gravity. Tourniquet inflated 225 mmHg. Tourniquet was let down after 15 minutes of inflation. Meticulous hemostasis was performed. Prior to the start of the procedure 1% lidocaine and 0.5% Marcaine with epinephrine were injected for a digital block. A Syme type amputation was performed. The distal eschar was incorporated into the excision which coursed along the mid lateral lines excising the old nail bed just distal to the level of the DIP joint which was identified fluoroscopically. Distally I took off a bed of soft tissue where the infection was. The remainder was a subperiosteal dissection releasing the collateral ligaments amputating the flexor tendon as far proximal as possible. The Post was sent for specimen. I dissected out the tip of the toe and obtained a swab culture sent for Gram stain aerobic anaerobic. There was minimal bleeding. Hemostasis with electrocautery and pressure. Wound copiously irrigated with sterile saline. There was no abscess. The surrounding tissue appeared unremarkable. The distal skin flap was trimmed as necessary and brought proximally and secured with 3-0 nylon sutures. A bulky soft sterile dressing was applied along with a postop shoe. Patient was awakened from anesthesia without difficulty taken to the recovery room in stable condition. Specimens were as mentioned above counts were correct blood loss was 1 cc. At the conclusion the operation spoke patient's family informed of my findings and gave detailed postoperative instructions. He will be admitted to the hospital overnight for IV antibiotics and medical monitoring. Will restart Eliquis in the morning. I attest to the content of the Intraoperative Record and any orders documented therein. Any exceptions are noted below.
--- NOTE | 2019-01-19 12:24 | Anesthesiology Progress Note ---
Date of Service January 19, 2019 Anesthesia Post Procedure Vital Signs Vital Signs: Temp Pulse Pulse Resp BP BP Pulse Ox 01/19/19 12:20 36.6 C 77 16 131/78 100 01/19/19 12:10 73 16 129/77 100 01/19/19 12:01 36.7 C 73 15 136/73 100 01/19/19 08:30 36.5 C 81 18 152/92 H 100 Transfer of Care Handoff Completed per policy Notes Mental Status: alert / awake / arousable and participated in evaluation Patient Amnestic to Procedure: Yes Nausea / Vomiting: adequately controlled Pain: adequately controlled Airway Patency, RR, SpO2: stable & adequate BP & HR: stable & adequate Hydration State: stable & adequate Anesthetic Complications: no major complications apparent
[2019-01-19] MEDS ORDERED: NALOXONE HCL 0.4 MG/1 ML VIAL/CARP IV PRN (13:17)
[2019-01-19] MEDS ORDERED: METOCLOPRAMIDE HCL INJ 5 MG/ML 2 ML VIAL IV PRN (13:17)
[2019-01-19] MEDS ORDERED: TAMSULOSIN HCL 0.4 MG CAP PO PRN (13:17)
[2019-01-19] MEDS ORDERED: NON-FORMULARY MEDICATION (Insulin Lispro [Humalog U-100 Insulin] 1 sliding scale dose) SQ SCH (13:17)
[2019-01-19] MEDS ORDERED: OXYCODONE HCL IR 5 MG TAB (IMMEDIATE RELEASE) PO PRN (13:17)
[2019-01-19] MEDS ORDERED: SUBCUTANEOUS INSULIN PUMP SCH (13:17)
[2019-01-19] MEDS ORDERED: ONDANSETRON INJ 2 MG/ML 2 ML VIAL IV PRN (13:17)
[2019-01-19] MEDS ORDERED: HYDROmorphone INJ 0.5 MG/0.5 ML SYR IV PRN (13:17)
[2019-01-19] MEDS ORDERED: SODIUM CHLORIDE 0.9% 1000ML 1,000 ML IV SCH (13:17)
[2019-01-19] MEDS ORDERED: TRAMADOL HCL 50 MG TABLET PO PRN (13:17)
[2019-01-19] MEDS ORDERED: PHARMACY GLYCEMIC MGMT CONSULT PRN (13:25)
[2019-01-19] MEDS ORDERED: DEXTROSE 50% 50 ML SYRINGE IV PRN (13:30)
[2019-01-19] MEDS ORDERED: GLUCOSE 40% GEL 15 GM TUBE PO PRN (13:30)
[2019-01-19] MEDS ORDERED: CARBOHYDRATES FOR HYPOGLYCEMIA PO PRN (13:30)
[2019-01-19] MEDS ORDERED: GLUCAGON FOR INJ 1 MG VIAL IM PRN (13:30)
[2019-01-19] MEDS ORDERED: GLUCOSE 10 TABS/TUBE PO PRN (13:30)
--- NOTE | 2019-01-19 14:20 | Hospitalist Consultation ---
Date of Consultation January 19, 2019 Assessment & Plan (1) Osteomyelitis: S/p right great toe amputation with Dr. Ayoub on 01/19. - Post-op management per primary team - PT/OT (2) Diabetes mellitus with diabetic polyneuropathy: A1c was 7.4% in 10/2018. Has been on an insulin pump for >20 years. Usually maintains his sugars in 80-120 range. Presently at 150 which was intentional for surgery. - Glycemic pharmacist consult - Order in to allow him to use his insulin pump - Will check 2-3 fingersticks against his machine to ensure they are similar - Patient in agreement with this. (3) Coronary artery disease: History of 3vCABG. No chest pain at rest or other concerning symptoms at present. Scheduled for cardiac cath in 01/2019 for exertional angina. - Continue Plavix, statin, beta-lissette, and Imdur - Note, patient titratates his own beta-lissette and usually only takes 2.5mg PO BID instead of the listed 10mg. Adjusted this dosage in the orders. (4) Heart failure with preserved ejection fraction: Echo in 12/2018 showed EF 55-60%, Grade II diastolic dysfunction. - Take furosemide 20mg PO daily PRN for leg swelling or weight gain. Presntly feels euvolemic without swelling. - Hold Lasix unless patient requests it or weight increases - Hold further IV fluids (5) History of atrial fibrillation: Has held his anticoagulation (Eliquis) for 3 days prior to surgery. - Continue apixaban - Continue beta-lissette for rate control (6) Hypertension: Runs low usually per patient. Beta lissette more for cardiac protection than actual HTN. - Monitor BP (7) Chronic kidney disease, stage 3: Baseline Cr ~2.0; eGFR ~30. - Renally-adjust medications - Monitor (8) Hypothyroidism: TSH was 1.0 in 10/2018. No signs/symptoms of hypo-/hyperthyroidism. - Continue home Synthroid 112 mcg (9) DVT prophylaxis: On apixaban for afib History of Present Illness Attending Physician: Ez Ayoub MD History of Present Illness 73yo M w/ hx of DM and right great toe osteomyelitis who presents as a medical consult after right great toe amputation with Dr. Ayoub on 01/19/2019. The patient has been on antibiotics since 10/2018 and continues to have infection in the bone. He is ready to be off antibiotics. At present, post-op, he is in good spirits. Has no pain. No major concerns at present. Has an insulin pump that he has used for >20 years. Allergies Allergy/AdvReac Type Severity Reaction Status Date / Time No Known Allergies Allergy Verified 01/15/19 11:20 Home Medications Home Medications Medication Instructions Recorded Confirmed Type atorvastatin 80 mg tablet 80 mg PO QPM 04/07/18 01/19/19 History cholecalciferol (vitamin D3) 2,000 2,000 units PO DAILY 04/07/18 01/19/19 History unit capsule cyanocobalamin (vitamin B-12) 1,000 mcg PO DAILY 04/07/18 01/19/19 History 1,000 mcg capsule folic acid 1 mg tablet 1 mg PO DAILY 04/07/18 01/19/19 History levothyroxine 112 mcg capsule 112 mcg PO QAM 04/07/18 01/19/19 History magnesium 400 mg (as magnesium 400 mg PO DAILY cap 04/07/18 01/19/19 History oxide) capsule Humalog U-100 Insulin 1 sliding scale dose SUBCUT UD 06/18/18 01/19/19 History acyclovir [Zovirax] See Protocol PO DAILY 07/23/18 01/19/19 History Bifidobacterium infantis 4 mg 4 mg PO DAILY 08/26/18 01/19/19 History capsule pantoprazole 40 mg PO BID #0 tab 10/30/18 01/19/19 Rx amoxicillin 875 mg-potassium 1 tab PO BID #60 tab 12/03/18 01/19/19 Rx clavulanate 125 mg tablet calcium citrate 1 ea PO DAILY 12/28/18 01/19/19 History clopidogrel 75 mg tablet 75 mg PO QPM #90 tab 12/28/18 01/19/19 Rx nebivolol 10 mg tablet 10 mg PO BID #180 tab 12/30/18 01/19/19 Rx apixaban 5 mg tablet 5 mg PO BID 12/31/18 01/19/19 History blood-glucose transmitter device #1 ea 12/31/18 01/11/19 History subcutaneous insulin pump #1 ea 12/31/18 01/11/19 History B complex with C 20-folic acid 1 cap PO DAILY 01/04/19 01/19/19 History [Renal Caps] isosorbide mononitrate 180 mg PO QAM 01/04/19 01/19/19 History vit C,S-Ze-jbbze-lutein-zeaxan 1 tab PO BID 01/04/19 01/19/19 History [PreserVision AREDS-2] furosemide 20 mg tablet 20 mg PO DAILY #90 tab 01/15/19 01/19/19 Rx Patient History Medical History Hypertension (Chronic) Basal cell carcinoma of left forehead (Resolved) Renal tubular acidosis, type 4 (Chronic) 2/2 CKD, managed with low dose furosemide Diabetic foot ulcer associated with type 1 diabetes mellitus (Acute) Foot deformity (Chronic) History of diabetic ulcer of foot (Chronic) Ascending aortic aneurysm MONITORING - DR. BIRD - STABLE SINCE 2005 CAD (coronary artery disease) Chronic kidney disease FOLLOWS W/ DR. COUGHLIN History of atrial fibrillation DX FALL 2017 - ON ELIQUIS - S/P CARDIAC ABLATION - FOLLOWS W/ DR. BIRD History of atrial flutter History of kidney stones Hypothyroidism On anticoagulant therapy Osteomyelitis Pacemaker 2012 - [employer] - LAST CHECKED 09/2018 Acquired claw toe of left foot (Acute) Acquired claw toe of right foot (Acute) Diabetes mellitus with diabetic polyneuropathy (Acute) Myocardial infarct (Acute) 05/2018 - [facility] Neuropathic ulcer of toe of right foot (Acute) Anemia (Chronic) Vitamin D deficiency (Chronic) Surgical History History of aortic valve replacement 2013 History of appendectomy History of cardiac cath 2016 - [facility] NO STENTS/ANGIOPLASTY 2006 - [facility] [place] - 1 STENT PLACED 2011 - [facility] [place] - NO STENTS 1993 --> CABG History of coronary artery bypass graft x 3 1993 History of cystoscopy W/ STONE EXTRACTION 03/20/17: LMA #5 History of gastric bypass 20 YEARS AGO - FOR DM History of hand surgery Lt History of inguinal hernia repair Rt 03/02/14: MAC #4, ETT #7.5, Oral, Grade 2 View History of laminectomy CERVICAL SPINE History of radiofrequency ablation procedure for cardiac arrhythmia History of tonsillectomy Hx of heart artery stent 2006 History of amputation of lesser toe of right foot (Acute) History of esophagogastroduodenoscopy (EGD) Family History Father Coronary heart disease Myocardial infarction Brother Diabetes Mother Diabetes Social History Preferred Language: Malian Communication Ability: Effective Visual Impairment: Limited 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: Normal 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 Beliefs That Will Affect Care: None marital status: Current Living Situation: Spouse current occupational status: retired Other Information That Helps Us Care for You: No Feels Safe at Home: Yes Safety Concerns: Feels Safe At This Time Smoking Status: Never smoker Do You Dip or Chew Tobacco: No ; Second Hand Exposure: No ; Hx Alcohol Use: No Hx Substance Use: No Review of Systems Review of Systems: All systems reviewed & are unremarkable except as noted in HPI & below Physical Exam Constitutional: WD/WN, vitals as above Eyes: EOM intact bilaterally; no conjunctival abnormality ENMT: external ear and nose normal, oropharynx normal Neck: trachea midline, no thyromegaly normal visual inspection Respiratory: normal respiratory effort, lungs clear to auscultation no respiratory distress Cardiovascular: RRR, no murmur, no edema Gastrointestinal (Abdomen): Inspection/Auscultation: abdomen normal to inspection; abdomen not distended Insulin pump inserted Musculoskeletal: no cyanosis or clubbing, extremities motor strength 5/5 Right foot in bandages Skin: no rashes, warm and dry Neurologic: moves all extremities and awake Psychiatric: Orientation: alert, oriented to person and cooperative Results & Data Vital Signs (Past 12 Hours) Vital Signs Temp Pulse Pulse Resp BP BP Pulse Ox 01/19/19 13:40 76 14 96/72 L 100 01/19/19 13:05 36.5 C 74 16 143/77 H 100 01/19/19 12:55 75 18 136/81 99 01/19/19 12:40 79 17 137/85 99 01/19/19 12:30 72 16 136/76 100 01/19/19 12:20 36.6 C 77 16 131/78 100 01/19/19 12:10 73 16 129/77 100 01/19/19 12:01 36.7 C 73 15 136/73 100 01/19/19 08:30 36.5 C 81 18 152/92 H 100 PG Care Time/CCT Total # of Minutes Spent Total Time Spent with Patient: Total time spent is greater than 50% in coordination of care (as documented) at patient's floor/unit and/or counseling patient:
[2019-01-19] MEDS ORDERED: INSULIN HUMAN LISPRO (humaLOG) 100 UNITS/ML VIAL SC PRN (14:30)
--- NOTE | 2019-01-19 14:49 | Pharmacy Report ---
Glycemic Control Consultation - Date of Service January 19, 2019 - Scope Scope: Glycemic Pharmacist consulted by Dr Milner on 01/19for glycemic control and to write orders per [facility] inpatient glycemic control protocol - Objective Weight: 84.567 kg Accuchecks BSG (last 24hrs): 01/19/19 01/19/19 08:17 12:05 POC Glucose 152 H 152 H - Recent Pertinent Medications Outpatient Anti-diabetic Regimen: * Humalog pump * A1c = 7.5 % 11/04/18 Risk Factors for Insulin Resistance: * Steroids: none * Recent Surgery: POD 0 * Diet: yes - Assessment & Plan Assessment & Plan: ASSESSMENT: * 73 year old male now s/p toe amputation. PMHx significant for CAD, hld, htn, CKD, osteo * Type 1 diabetic managmed on Humalog pump at home. Has been on an insulin pump for >20 years and feels very comfortable with managing his BSGs with the pump while in hospital * Patient did not receive any steroids, BSGs after surgery in 150s. Feel that is reasonable for patient to use pump. Notified patient that we will still be checking BSGs and may intervene if needed * Of note, patient does state he adjusts his pump setting frequently. Typically overnight from [id number] he uses ~0.3 units/hr, 0700-dinner time ~0.5 units/hr, and then will decrease after dinner depending on activity ~0.4 units/hr. Does also bolus for meals and this number also changes. States that at home is BSGs are well controlled typically in low 100s. PLAN FOR INPATIENT GLYCEMIC CONTROL: * Patient to continue insulin pump * Pharmacy to follow BSGs while on pump * Please note that the plan above was derived based on current level of insulin resistance and hospital stress. These recommendations are appropriate for inpatient admission only. Plan of care upon discharge will need to be reassessed to avoid potential outpatient hypo/hyperglycemia. Thank you.
--- NOTE | 2019-01-19 15:02 | Fluoroscopy Report ---
FL toe RT 2V CLINICAL HISTORY: RIGHT 1ST TOE AMP COMPARISON STUDY: Right foot radiographs December 29, 2018. FLUOROSCOPY TIME: 3 seconds. FLUOROSCOPIC IMAGES: 2 FINDINGS: These images demonstrate amputation of the distal phalanx of the right first toe. No unexpe cted radiopaque foreign bodies noted. Previous right third toe amputation is noted with chronic defor mity of the right second toe. IMPRESSION: Expected findings following amputation of the distal phalanx of the right first toe. Electronically signed by: Servando Tidwell M.D. 01/19/2019 3:00 PM
--- NOTE | 2019-01-19 16:41 | Orthopedic Progress Note ---
Date of Service January 19, 2019 Assessment & Plan (1) Osteomyelitis: POD 0 - s/p Syme amputation right great toe Encouraged strict elevation May weight bear as tolerated right lower extremity with assistance of a walker Ice to right foot as needed for pain/swelling Tylenol for pain PRN as requested by patient. Regular diet as ordered. PT/OT to start tomorrow Appreciate Hospitalist and Pharmacist assistance for management of co- morbidities. Case management for disposition - patient planning on being discharged to home. Plan for discharge tomorrow. Will discuss findings with Dr. Ayoub. Will re-eval in AM. Present on Admission?: Yes Subjective Patient states he's doing fine. Ambulating in room with walker, although he doesn't feel that he needs it. He tolerated regular diet but is hungry now. Denies chest pain, lightheadedness, dizziness, or shortness of breath. No pain. Physical Exam Physical Exam: Mild bloody drainage on dressings, no soaked through, just evident between toes. Antonio clean and dry. EZ wrap on foot, post op shoe in place. Moves ankle well. No calf pain with palpation. Results & Data Vital Signs (Past 12 Hours) Vital Signs Temp Pulse Pulse Resp BP BP Pulse Ox 01/19/19 15:35 36.5 C 72 16 117/62 99 01/19/19 14:14 69 16 129/74 98 01/19/19 13:40 76 14 96/72 L 100 01/19/19 13:05 36.5 C 74 16 143/77 H 100 01/19/19 12:55 75 18 136/81 99 01/19/19 12:40 79 17 137/85 99 01/19/19 12:30 72 16 136/76 100 01/19/19 12:20 36.6 C 77 16 131/78 100 01/19/19 12:10 73 16 129/77 100 01/19/19 12:01 36.7 C 73 15 136/73 100 01/19/19 08:30 36.5 C 81 18 152/92 H 100
[2019-01-19] MEDS: ACETAMINOPHEN 500 MG TAB PO SCH (17:26)
[2019-01-19] MEDS: CEFAZOLIN 2000MG 2,000 MG/15 ML SYR IV SCH (17:27)
[2019-01-19] MEDS: DOCUSATE SODIUM 100 MG CAP PO SCH (20:43)
[2019-01-19] MEDS: PANTOprazole 40 MG TAB PO SCH (20:43)
[2019-01-19] MEDS: CEROVITE ADV FORMULA TAB PO SCH (20:44)
[2019-01-19] MEDS ORDERED: SENNA 8.6 MG TAB PO SCH (21:00)
[2019-01-19] MEDS: NEBIVOLOL HCL 5 MG TAB PO SCH ×3 (21:00→22:45)
[2019-01-19] MEDS ORDERED: CLOPIDOGREL BISULFATE 75 MG TAB PO SCH (21:00)
[2019-01-19] MEDS ORDERED: NEBIVOLOL HCL 5 MG TAB PO SCH (21:00)
[2019-01-19] MEDS: ATORVASTATIN 40 MG TAB PO SCH ×2 (21:07→22:47)
[2019-01-20] MEDS: ACETAMINOPHEN 500 MG TAB PO SCH ×2 (00:17→09:27)
[2019-01-20] MEDS: CEFAZOLIN 2000MG 2,000 MG/15 ML SYR IV SCH ×2 (02:23→09:28)
[2019-01-20 06:16] LABS: Hematocrit (blood only) 27.6 % (42-52); Hemoglobin 9.3 g/dL (14.0-18.0); Mean Corpuscular Hgb Conc 33.7 g/dL (32-36); Mean Corpuscular Volume 94.2 fL (80-100); Platelet Count 102 K/uL (130-400); RDW Coefficient of Variation 14.6 % (11.5-14.5); RDW Standard Deviation 49.9 fL (36.4-46.3); Red Blood Count 2.93 M/uL (4.7-6.1); White Blood Count 4.26 K/uL (4.8-10.8)
[2019-01-20] MEDS ORDERED: LEVOTHYROXINE SODIUM 112 MCG TABLET PO SCH (06:30)
[2019-01-20 06:46] LABS: BUN Creatinine Ratio 27.2 (10-20); Calcium 8.7 mg/dl (8.5-10.1); Creatinine Clr Calc Pharmacy 27.8 ml/min; Est GFR (African American) 34.2; Est GFR (Non-African American) 29.6; Potassium 5.5 mmol/L (3.5-5.1)
--- NOTE | 2019-01-20 08:35 | Discharge Summary ---
Date of Service January 20, 2019 Discharge Data Consultations 01/19/19 13:17 Consult Case Management - Discharge Planning Routine 01/19/19 13:41 Consult Hospitalist Routine Procedures Performed Operation Date: 01/19/19 10:20 Actual Procedures p Right Great Toe Syme Amputation(Right) - Ez Ayoub MD Hospital Course (1) Osteomyelitis: Mr. Blake he was admitted to [facility] after undergoing a Syme amputation of his right great toe. His surgery was performed with a digital block and Mac anesthesia.He tolerated the procedure well without any intraoperative or postoperative complications. Intraoperative cultures were obtained, pending at discharge. The right great toe, distal phalanx was sent to pathology. Intraoperative x-rays were also obtained to confirm complete removal of the distal phalanx. He was given 2 g of IV Ancef preoperatively and this was continued for 24 hours after surgery. Postoperatively he did well without any significant pain in his right great toe. He tolerated a regular, diabetic diet. His home medications were resumed. His Eliquis was restarted on January 20, 2019. He was allowed out of bed, weightbearing as tolerating on his right lower extremity. Recommended using a walker for assistance. Encouraged strict elevation of his right foot. Ice to right foot as needed for pain and swelling. Dressings remained intact and were reinforced as needed. He was provided a postop shoe to wear in his right lower extremity at all times. Tylenol was used for the first agent for pain medication. Also ordered Tylenol, oxycodone and IV Dilaudid which she did not need. I will regimen was also ordered to prevent constipation. Physical therapy and occupational therapy consults were placed to assess for safety upon discharge to home. Hospitalist consult was placed for Postoperative medical management. At glycemic consult was also placed for management and recommendations of his diabetic medications. On postoperative day one, he was doing well. Was ambulating in his room comfortably. Again encouraged strict elevation of his right foot. His CBC and BMP were stable with chronically elevated potassium, BUN/Cr and low platelet count of 102. Gram stain was negative for any organisms. The anaerobic and aerobic cultures continued to be pending. Those will be followed as an outpatient. He was deemed safe for home and was discharged to his home in stable condition. We will follow up at the end of this week for dressing change and wound check. Discharge instructions were provided. All questions were answered.
[2019-01-20] MEDS ORDERED: ISOSORBIDE MONO EXTENDED REL 60 MG TABCR PO SCH (09:00)
[2019-01-20] MEDS ORDERED: CYANOCOBALAMIN 500 MCG TABLET (VITAMIN B-12) PO SCH (09:00)
[2019-01-20] MEDS ORDERED: FUROSEMIDE 20 MG TAB PO SCH (09:00)
[2019-01-20] MEDS ORDERED: APIXABAN 5 MG TABLET PO SCH (09:00)
[2019-01-20] MEDS ORDERED: ACYCLOVIR 400 MG TAB PO SCH (09:00)
[2019-01-20] MEDS ORDERED: NEPHROCAPS PO SCH (09:00)
[2019-01-20] MEDS ORDERED: MAGNESIUM OXIDE 400 MG TAB PO SCH (09:00)
[2019-01-20] MEDS ORDERED: CHOLECALCIFEROL 1,000 UNITS TAB PO SCH (09:00)
[2019-01-20] MEDS ORDERED: FOLIC ACID 1 MG TAB PO SCH (09:00)
[2019-01-20] MEDS ORDERED: LACTOBACILLUS ACIDOPHILUS (FLORANEX) TAB PO SCH (09:00)
[2019-01-20] MEDS: NEBIVOLOL HCL 5 MG TAB PO SCH (09:25)
[2019-01-20] MEDS: CEROVITE ADV FORMULA TAB PO SCH (09:26)
[2019-01-20] MEDS: DOCUSATE SODIUM 100 MG CAP PO SCH (09:26)
[2019-01-20] MEDS: PANTOprazole 40 MG TAB PO SCH (09:26)
--- NOTE | 2019-01-20 10:44 | Progress Note ---
DATE: 01/20/2019 SUBJECTIVE: Pain is controlled. No problems are noted. He has been up, PT, ambulating, weightbearing as tolerated. He has been afebrile. OBJECTIVE: His vital signs have been stable. Blood pressure a little bit on the high side at times. Fluid balance is noted. His dressing required reinforcement yesterday. White count is 4, hemoglobin 9, hematocrit 28, platelet count is 102. Potassium chronically high approximately 5.5. Chronic elevation in BUN and creatinine. All labs essentially at baseline. Dressing is clean and dry with some soaking of blood underneath, but nothing through the reinforcement. Cultures pending. Gram stain negative. IMPRESSION: Probable osteomyelitis of the right great toe distal phalanx. PLAN: Findings discussed. Stable for discharge. He should keep follow up with his other medical doctors. He has a heart catheterization scheduled in about 10 days. Also follow up in the wound care clinic. He will see our office on Friday. Continue his regular medications including his Eliquis. He will be discharged on Augmentin and will continue until told to stop. Ultram for pain as needed. Otherwise, take Tylenol. Use assistive device to ambulate and limit ambulation. Focus on elevation to minimize swelling and promote wound healing. If there are any problems or questions, pain, swelling, fevers or any other issues, please call my office or go to the Emergency Room. Leave dressing intact. Keep clean and dry. Prior wound cultures grew out methicillin-sensitive staph.
--- NOTE | 2019-01-20 14:24 | Hospitalist Progress Note ---
Date of Service January 20, 2019 Assessment & Plan (1) Osteomyelitis: - S/p right great toe amputation with Dr. Ayoub on 01/19, POD#1. - Pain management and DVT ppx per primary team. -sent home on Augmentin for h/o MSSA - Discharged to home this afternoon. (2) Diabetes mellitus with diabetic polyneuropathy: - A1C was 7.4% in 10/2018. Has been on an insulin pump for >20 years. Usually maintains his sugars in 80-120 range. - Glycemic pharmacist consult. (3) Coronary artery disease: - History of CABG x3. Scheduled for cardiac cath in 01/2019 for exertional angina. - Continue Plavix, statin, beta-lissette, and Imdur. (4) Heart failure with preserved ejection fraction: - Echo in 12/2018 showed EF 55-60%, Grade II diastolic dysfunction. - Take furosemide 20mg PO daily. Held as inpatient. (5) History of atrial fibrillation: - Resumed Apixaban as prescribed. - Continue beta lissette. (6) Hypertension: - Continue home meds. (7) Chronic kidney disease, stage 3: - Baseline Cr ~2.0; eGFR ~30. Cr currently at baseline. - Follows with Dr. Bridges; was evaluated pre-op. (8) Renal tubular acidosis, type 4: - Follows with Dr. Bridges. - Hyperkalemia noted on labs; will need outpatient monitoring. (9) Hyperkalemia: - K level 5.5 -- has been elevated on lab work since November 2018. - In setting of CKD and Renal tubular acidosis. - EKG with no changes. - Follows with Dr. Bridges. -should improve with restarting home po lasix (10) Hypothyroidism: - TSH was 1.0 in 10/2018. - Continue home Synthroid 112 mcg (11) DVT prophylaxis: - Continue home Apixaban. Dispo:Stable for discharge, will sign off. Supervising Physician Co-Signing Physician Notes PA Supervision Note: I did not personally see or examine the patient today, but I verified all gramajo points of [place]'s assessment and plan with the following exceptions/additions: None Subjective Pt. was doing well post op. Denies chest pain, SOB, N/V, diarrhea or constipation. Review of Systems Review of Systems: All systems reviewed & are unremarkable except as noted in HPI & below Constitutional: no fever, no chills, no fatigue and no weakness Respiratory: no cough, no dyspnea, no dyspnea on exertion and no wheezing Cardiovascular: no chest pain, no palpitations and no edema Gastrointestinal: no abdominal pain, no nausea, no vomiting, no constipation and no diarrhea/loose stools Genitourinary: no difficulty urinating Musculoskeletal: no back pain and no joint pain Integumentary: no non-healing lesions Physical Exam Physical Exam: General: Resting comfortably HEENT: NC/AT; PERRLA with EOMI; Funk conjunctiva, MMM. No erythema of posterior pharynx Neck: Supple and nontender Cardiac: RRR Lungs: CTA bilaterally Abdomen: Bowel normoactive X 4; Nontender to palpation Extremities: Warm. No edema present Neuro: No focal weakness Skin: No rash Results & Data Vital Signs (Past 12 Hours) Vital Signs Temp Pulse Resp BP Pulse Ox 01/20/19 07:26 36.8 C 70 16 125/73 99 01/20/19 02:30 36.6 C 70 16 148/76 H 98 Laboratory Results 01/20/19 01/20/19 01/19/19 Range/Units 05:40 05:40 20:31 WBC 4.26 L (4.8-10.8) K/uL RBC 2.93 L (4.7-6.1) M/uL Hgb 9.3 L (14.0-18.0) g/dL Hct 27.6 L (42-52) % MCV 94.2 (80-100) fL MCH 31.7 (25-34) pg MCHC 33.7 (32-36) g/dL RDW Std Deviation 49.9 H (36.4-46.3) fL RDW Coeff of Seferino 14.6 H (11.5-14.5) % Plt Count 102 L (130-400) K/uL MPV 9.0 (7.4-10.4) fL Sodium 144 (136-145) mmol/L Potassium 5.5 H (3.5-5.1) mmol/L Chloride 115 H (98-107) mmol/L Carbon Dioxide 24 (21-32) mmol/L Anion Gap 5.0 (3-11) BUN 58 H (7-18) mg/dl Creatinine 2.12 H (0.6-1.4) mg/dl Est Cr Clr Drug Dosing 27.8 ml/min Est GFR ( Amer) 34.2 Est GFR (Non-Af Amer) 29.6 BUN/Creatinine Ratio 27.2 H (10-20) Glucose 114 H (70-99) mg/dl POC Glucose 139 H (70-99) Calcium 8.7 (8.5-10.1) mg/dl 01/19/19 Range/Units 16:46 WBC (4.8-10.8) K/uL RBC (4.7-6.1) M/uL Hgb (14.0-18.0) g/dL Hct (42-52) % MCV (80-100) fL MCH (25-34) pg MCHC (32-36) g/dL RDW Std Deviation (36.4-46.3) fL RDW Coeff of Seferino (11.5-14.5) % Plt Count (130-400) K/uL MPV (7.4-10.4) fL Sodium (136-145) mmol/L Potassium (3.5-5.1) mmol/L Chloride (98-107) mmol/L Carbon Dioxide (21-32) mmol/L Anion Gap (3-11) BUN (7-18) mg/dl Creatinine (0.6-1.4) mg/dl Est Cr Clr Drug Dosing ml/min Est GFR ( Amer) Est GFR (Non-Af Amer) BUN/Creatinine Ratio (10-20) Glucose (70-99) mg/dl POC Glucose 205 H (70-99) Calcium (8.5-10.1) mg/dl PG Care Time/CCT Total # of Minutes Spent Total Time Spent with Patient: Total time spent is greater than 50% in coor dination of care (as documented) at patient's floor/unit and/or counseling patient:
[2019-01-20] MEDS ORDERED: CEFAZOLIN 1000MG 1,000 MG/7.5 ML SYR IV SCH (21:00)
== END 2019-01-20 12:22 | disposition home or self-care (01) | DRG 504 ==
LOC: ASU 07:49 → 3E 12:11

== ENCOUNTER 2019-10-07 15:29 | Inpatient (IN) ==
[2019-10-07] MEDS ORDERED: PHARMACY GLYCEMIC MGMT CONSULT STA (15:49)
[2019-10-07 16:58] LABS: Basophils # (auto) 0.05 K/uL (0-0.2); Basophils % (auto) 0.6 %; Eosinophils # (auto) 0.24 K/uL (0-0.5); Eosinophils % (auto) 2.7 %; Hematocrit (blood only) 31.2 % (42-52); Hemoglobin 9.9 g/dL (14.0-18.0); Immature Granulocytes # (auto) 0.02 K/uL (0.00-0.02); Immature Granulocytes % (auto) 0.2 %; Lymphocytes # (auto) 0.54 K/uL (1.2-3.4); Lymphocytes % (auto) 6.1 %; Mean Corpuscular Hemoglobin 32.8 pg (25-34); Mean Corpuscular Hgb Conc 31.7 g/dL (32-36); Mean Corpuscular Volume 103.3 fL (80-100); Mean Platelet Volume 9.8 fL (7.4-10.4); Monocytes # (auto) 1.16 K/uL (0.11-0.59); Monocytes % (auto) 13.1 %; Neutrophils # (auto) 6.85 K/uL (1.4-6.5); Neutrophils % (auto) 77.3 %; Platelet Count 223 K/uL (130-400); RDW Coefficient of Variation 15.4 % (11.5-14.5); RDW Standard Deviation 57.9 fL (36.4-46.3); Red Blood Count 3.02 M/uL (4.7-6.1); White Blood Count 8.86 K/uL (4.8-10.8)
[2019-10-07 17:13] LABS: INR 1.4 (0.9-1.1); Partial Thromboplastin Ratio 1.4; Partial Thromboplastin Time 38.5 Seconds (21.0-31.0); Prothrombin Time 14.7 Seconds (9.0-12.0)
[2019-10-07 17:20] LABS: Alanine Aminotransferase 51 U/L (12-78); Albumin Level 2.6 gm/dl (3.4-5.0); Aspartate Aminotransferase 77 U/L (15-37); BUN Creatinine Ratio 31.4 (10-20); Blood Urea Nitrogen 66 mg/dl (7-18); Calcium 9.3 mg/dl (8.5-10.1); Carbon Dioxide 18 mmol/L (21-32); Chloride 115 mmol/L (98-107); Est GFR (African American) 34.4; Est GFR (Non-African American) 29.7; Glucose 133 mg/dl (70-99); Magnesium 2.1 mg/dl (1.8-2.4); Potassium 5.6 mmol/L (3.5-5.1); Sodium 141 mmol/L (136-145)
[2019-10-07 17:24] LABS: Albumin Globulin Ratio 0.6 (0.9-2); Alkaline Phosphatase 642 U/L (45-117); Globulin 4.6 gm/dl (2.5-4.0); Phosphorus 3.4 mg/dl (2.5-4.9); Total Protein 7.2 gm/dl (6.4-8.2)
[2019-10-07] MEDS ORDERED: ACETAMINOPHEN 500 MG TAB PO PRN (17:42)
[2019-10-07] MEDS ORDERED: PATIENT'S HEIGHT AND/OR WEIGHT NEEDED SCH (18:00)
--- NOTE | 2019-10-07 19:12 | XRay Report ---
XR knee RT 1 or 2V routine CLINICAL HISTORY: red hot painful joint COMPARISON: Right knee radiographs October 29, 2018. CT of the right tibia and fibula October 27, 2018. FINDINGS: Surgical clips within the medial right leg are noted. No acute fracture is noted. There is no radiographic evidence for osteomyelitis within the right knee. Chondrocalcinosis is noted. There is severe patellofemoral compartment joint space narrowing. Note is made of mild to moderate medial c ompartment joint space narrowing. A small to moderate right knee joint effusion is present. There is extensive vascular calcification. Irregularity of the tibial tuberosity with adjacent well-corticated ossicles is chronic. Note is made of soft tissue swelling. IMPRESSION: 1. No acute fracture. No evidence for osteomyelitis within the right knee. 2. Soft tissue swelling. Small to moderate right knee joint effusion. 3. Moderate to severe right knee osteoarthritis, most pronounced within the patellofemoral compartmen t. ACT 112: Negative or not required by law. Electronically signed by: Servando Tidwell M.D. 10/07/2019 7:10 PM
--- NOTE | 2019-10-07 19:16 | XRay Report ---
XR ankle RT min 3V routine CLINICAL HISTORY: unstageable heel ulcer ?osteomyelitis COMPARISON: Right foot radiographs May 14, 2019. FINDINGS: Alignment of the right ankle is anatomic. The talar dome is intact. Extensive vascular carlos cification is noted. There is mild posterior calcaneal spurring. There is no acute fracture or eviden ce for osteomyelitis within the calcaneus. Midfoot osteoarthritis is better depicted on the right alanna t radiographs which will be reported separately. IMPRESSION: No acute fracture. No evidence for osteomyelitis. ACT 112: Negative or not required by law. Electronically signed by: Servando Tidwell M.D. 10/07/2019 7:14 PM
[2019-10-07] MEDS ORDERED: ONDANSETRON INJ 2 MG/ML 2 ML VIAL IV PRN (19:19)
--- NOTE | 2019-10-07 19:19 | XRay Report ---
XR foot RT min 3V routine CLINICAL HISTORY: unstageable plantar 4th MT ulcer ?osteomyelitis COMPARISON: Right foot radiographs May 14, 2019. FINDINGS: No acute fracture is noted. Tarsometatarsal joints are intact. There is severe osteoarthri tis within the tarsometatarsal joints. Amputations involving the first, third and fourth toes are not ed. Postoperative appearance is unchanged since exam of May 14, 2019. Periosteal thickening of t he fourth and fifth metatarsals is unchanged. There is no evidence for osteomyelitis within the right foot by radiography. Chronic deformity of the right second metatarsophalangeal joint is unchanged. T here is extensive vascular calcification. IMPRESSION: No change in appearance of the right foot since radiographs of May 14, 2019. No acut e fracture. No evidence for osteomyelitis. Stable postoperative appearance. ACT 112: Negative or not required by law. Electronically signed by: Servando Tidwell M.D. 10/07/2019 7:17 PM
[2019-10-07] MEDS ORDERED: dilTIAZem HCL 30 MG TAB PO SCH (21:00)
[2019-10-07] MEDS ORDERED: ATORVASTATIN 40 MG TAB PO SCH (21:00)
[2019-10-07] MEDS: CALCIUM 600MG + VIT D 400 IU TAB PO SCH (21:02)
[2019-10-07] MEDS: APIXABAN 5 MG TABLET PO SCH (21:04)
[2019-10-07] MEDS: FERROUS SULFATE 325 MG TAB PO SCH (21:05)
[2019-10-07] MEDS: MAGNESIUM OXIDE 400 MG TAB PO SCH (21:05)
[2019-10-07] MEDS: ISOSORBIDE MONO EXTENDED REL 60 MG TABCR PO SCH (21:05)
[2019-10-07] MEDS: FOLIC ACID 400 MCG TAB PO SCH (21:05)
[2019-10-07] MEDS: NEPHROCAPS PO SCH (21:06)
[2019-10-07] MEDS: CYANOCOBALAMIN 500 MCG TABLET (VITAMIN B-12) PO SCH (21:06)
[2019-10-07] MEDS: CLOPIDOGREL BISULFATE 75 MG TAB PO SCH (21:06)
[2019-10-07] MEDS: ACYCLOVIR 400 MG TAB PO SCH (21:06)
[2019-10-07] MEDS: CHOLECALCIFEROL 1,000 UNITS 25 MCG TAB PO SCH (21:06)
[2019-10-07] MEDS ORDERED: SODIUM POLYSTYRENE SULFONATE 15G/60ML SUSP PO STA (21:36)
--- NOTE | 2019-10-07 21:36 | History & Physical Report ---
Date of Service October 07, 2019 Assessment & Plan (1) Knee pain, right: Suspicious for pseudogout (prior history of this) but given prior concern for cellulitis by orthopedics (as per ER note) and the ER for cellulitis with knee joint pain I discussed with Dr Vazquez to possibly perform knee aspiration to r/o septic arthritis before placing this diabetic patient with history of GI bleed on prednisone. Will defer antibiotics as no cellulitis present I can see and low likelihood of septic arthritis. XR right knee. US right knee requested by orthopedics to assess for effusion. Consult orthopedics placed Tramadol for pain. No NSAIDs given renal function (2) Right leg swelling: Since this was his initial problem I am still concerned about a DVT despite negative US just three days previously. Will get US right iliac to assess for DVT more proximal. I suspect however he developed pseudogout in his right knee and the inflammation from this has caused his swelling along with his poor venous drainage secondary to prior greater saphenous vein used in CABG. (3) Prepatellar bursitis: Erythema currently present represents prepatellar bursitis however the pain in knee is much more joint related. I suspect this is inflammatory rather than infected arising from joint inflammation from pseudogout. Consult orthopedics (4) Pseudogout: History of this and suspicion in right knee currently (see above) (5) Macrocytic anemia: Anemia appears chronic but more acutely macrocytic. B12 and folate levels in AM. Consider (6) Elevated alkaline phosphatase level: I am unclear regarding the etiology of this although it appears to be relatively chronic it is worse than usual. Along with a macrocytic anemia and CKD I would consider SPEP/UPEP if not recently performed although I cannot relate myeloma to his current acute issue causing his hospitalization. This was not discussed with him on admission. (7) Hyperkalemia: Appears to be slowly rising recently. Possibly due to ibuprofen use effecting his renal function. Given slow rise and patient noted constipation will treat with Kayexalate and repeat in AM. (8) Presence of permanent cardiac pacemaker: (9) Afib: Anticoagulation with apixaban. Rate control with diltiazem (prescription noted at 30mg BID but patient only takes 7.5mg or 15mg) (10) Diabetic foot ulcer: XR right foot and ankle as per wound care recommendations to assess for osteomyelitis. There is no cellulitis surrounding these chronic ulcers. (11) Diabetes mellitus type I: Patient to manage own insulin BSG ACHS with hypoglycemic protocol. Admission and Anticipated Discharge Date Admission Date: October 07, 2019 History of Present Illness Chief Complaint: Right leg swelling and pain Primary Care Provider: Guanaco Esteban MD Talon Blake is a 74 year old male with atrial fibrillation, PPM 2/2 CHB, T1DM, diabetic foot ulcers, Hx GI bleed who is a direct admission from the wound care clinic due to concerns of cellulitis with failed outpatient therapy. The patient notes acute onset of right leg swelling that started on Friday. His leg does swell periodically secondary to poor venous drainage from prior greater saphenous vein harvest for his CABG but this was much more than previous. He then started to have right knee pain with erythema over the front of the knee. He saw his orthopedic surgeon Dr Verduzco on FridayOctober 03 and as per patient recollection and ER notes (ortho note not available at time of admission) he was told he had cellulitis and was sent to the ER. The erythema described in that note is similar to what is present today over just his patellar tendon. He was given a dose of ceftriaxone and discharged with doxycycline and keflex for follow up in wound care clinic. US doppler for DVT was performed which was negative. No change to his erythema was noticed during these three days therefore he was referred to the hospitalist group for admission with cellulitis with failed outpatient therapy. The patient currently notes the pain is the worst it has been. Although he knows he shouldn't be taking ibuprofen this has given him significant relief. Allergies Allergy/AdvReac Type Severity Reaction Status Date / Time No Known Allergies Allergy Verified 10/07/19 14:13 Home Medications Home Medications Medication Instructions Recorded Confirmed Type cholecalciferol (vitamin D3) 50 2,000 units PO HS 04/07/18 10/07/19 History mcg (2,000 unit) capsule cyanocobalamin (vitamin B-12) 1,000 mcg PO HS 04/07/18 10/07/19 History 1,000 mcg capsule magnesium oxide 400 mg PO HS cap 04/07/18 10/07/19 History apixaban 5 mg tablet 5 mg PO BID 12/31/18 10/07/19 History blood-glucose transmitter #1 ea 12/31/18 09/23/19 History PreserVision AREDS-2 1 tab PO BID 01/04/19 10/07/19 History folic acid 800 mcg tablet 800 mcg PO HS 01/29/19 10/07/19 History atorvastatin 80 mg PO HS 02/01/19 10/07/19 History nitroglycerin 0.4 mg sublingual 0.4 mg SL Q5M PRN #60 tab 02/10/19 10/07/19 Rx tablet Humalog U-100 Insulin 100 unit/mL 100 units SQ .COMPLEX #9 vial NS 03/22/19 10/07/19 Rx subcutaneous solution levothyroxine 112 mcg tablet 112 mcg PO QAM #90 tab 03/22/19 10/07/19 Rx ferrous sulfate 325 mg PO HS 05/31/19 10/07/19 History isosorbide mononitrate 60 mg PO BID 05/31/19 10/07/19 History furosemide 20 mg tablet 20 mg PO DAILY PRN tab 06/28/19 10/07/19 History B complex with C 20-folic acid 1 cap PO HS 08/06/19 10/07/19 History [Renal Caps] acyclovir 400 mg PO HS 08/06/19 10/07/19 History calcium carb and citrate-vitD3 1 tab PO HS 08/06/19 10/07/19 History [Citracal + D Slow Release] clopidogrel 75 mg PO HS 08/06/19 10/07/19 History pantoprazole 40 mg PO QAM 08/06/19 10/07/19 History cephalexin 500 mg PO Q12H 7 Days #14 cap 10/04/19 10/07/19 Rx diltiazem HCl 7.5 mg PO BID 10/04/19 10/07/19 History doxycycline hyclate 100 mg PO BID 7 Days #14 cap 10/04/19 10/07/19 Rx ibuprofen [Advil] 200 mg PO Q6H PRN 10/04/19 10/07/19 History Past Med/Surg History Surgical History (Updated 09/08/19 @ 12:34 by FAITH Sorensen) History of amputation of lesser toe of right foot (Acute) History of aortic valve replacement 2012 History of appendectomy History of arthroscopy of left shoulder History of cardiac cath 2017 [place]/ANGIOPLASTY 2007 [place] 1 STENT PLAC[place] [facility] [place] CABG History of coronary artery bypass graft x 3 1993 History of cystoscopy W/ STONE EXTRACTION 03/20/17: LMA #5 History of esophagogastroduodenoscopy (EGD) History of gastric bypass 20 YEARS AGO - FOR DM History of hand surgery Lt History of inguinal hernia repair Rt 03/02/14: MAC #4, ETT #7.5, Oral, Grade 2 View History of laminectomy CERVICAL SPINE History of radiofrequency ablation procedure for cardiac arrhythmia History of tonsillectomy Hx of heart artery stent 2006 Presence of permanent cardiac pacemaker (Chronic) S/P left knee arthroscopy S/P right knee arthroscopy Status post endovenous radiofrequency ablation of saphenous vein Family History (Updated 09/08/19 @ 12:35 by FAITH Sorensen) Father Coronary heart disease Myocardial infarction Brother Diabetes Mother Diabetes Cancer Denies family history of Colon cancer Ovarian cancer Prostate cancer Breast cancer Social History Preferred Language: Nauruan Communication Ability: Effective Visual Impairment: No Limitations 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: Normal Charge Histotechnologist Required: No Beliefs That Will Affect Care: None marital status: Current Living Situation: Spouse current occupational status: retired current occupation: Retired Other Information That Helps Us Care for You: No Feels Safe at Home: Yes Safety Concerns: Feels Safe At This Time Smoking Status: Never smoker Second Hand Exposure: No ; Hx Alcohol Use: No Hx Substance Use: No Review of Systems Review of Systems: All systems reviewed & are unremarkable except as noted in HPI & below Physical Exam Constitutional: well developed; no acute distress Eyes: + anicteric sclerae; normal pupil size ENMT: external ear and nose normal, oropharynx normal Neck: trachea midline, no thyromegaly Respiratory: normal respiratory effort, lungs clear to auscultation Cardiovascular: Rate/Rhythm: regular rate and regular rhythm Extremities: normal capillary refill and + edema (Right lower extremity up to hip 1+); no calf tenderness Gastrointestinal (Abdomen): Inspection/Auscultation: normal bowel sounds Percussion/Palpation: abdomen soft; abdomen nontender, no guarding and abdomen not rigid Musculoskeletal: Tenderness on palpation over erythematous region of right patellar tendon but also entire knee joint with associated knee effusion Unstageable chronic appearing diabetic foot ulcers on right heel and plantar surface of base of 3rd MT (see description in wound care note on same day without surrounding cellulitis. Cap refill normal in toes b/l Skin: Dark erythema over patellar tendon only Neurologic: moves all extremities and awake Motor/Sensory: + sensory deficit (peripheral neuropathy in feet b/l) Psychiatric: A+Ox3, euthymic affect Results & Data Results & Data ([facility]) Vital Signs (Past 12 Hours) Vital Signs Temp Pulse Pulse Resp BP Pulse Ox 10/07/19 21:03 70 167/79 H 10/07/19 16:10 36.3 C L 70 16 164/80 H 100 Code Status & VTE Plan Code Status Full VTE Prophylaxis Plan VTE Prophylaxis will be ordered: Yes PG Care Time/CCT Total # of Minutes Spent Total Time Spent with Patient: Total time spent is greater than 50% in coordination of care (as documented) at patient's floor/unit and/or counseling patient: Coding Level of Care Code 19216 Initial Inpt Care Lvl 3 Diagnoses Knee pain, right M25.561 Chronicity: acute Right leg swelling M79.89 Prepatellar bursitis M70.41 Laterality: right Pseudogout M11.20 Macrocytic anemia D53.9 Elevated alkaline phosphatase level R74.8 Hyperkalemia E87.5 Presence of permanent cardiac pacemaker Z95.0 Afib I48.11 Atrial fibrillation type: longstanding persistent Diabetic foot ulcer E11.621; L97.509 Diabetes mellitus type I E10.9 (1) Prepatellar bursitis Laterality: right Qualified Code(s): M70.41 - Prepatellar bursitis, right knee (2) Afib Atrial fibrillation type: longstanding persistent Qualified Code(s): I48.11 - Longstanding persistent atrial fibrillation (3) Knee pain, right Chronicity: acute Qualified Code(s): M25.561 - Pain in right knee
[2019-10-07] MEDS: dilTIAZem HCL 30 MG TAB PO SCH (22:15)
[2019-10-07] MEDS ORDERED: GLUCOSE 40% GEL 15 GM TUBE PO PRN ×2 (22:15→23:14)
[2019-10-07] MEDS ORDERED: CARBOHYDRATES FOR HYPOGLYCEMIA PO PRN ×2 (22:15→23:14)
[2019-10-07] MEDS ORDERED: DEXTROSE 50% 50 ML SYRINGE IV PRN ×2 (22:15→23:14)
[2019-10-07] MEDS ORDERED: GLUCOSE 10 TABS/TUBE PO PRN ×2 (22:15→23:14)
[2019-10-07] MEDS ORDERED: INSULIN HUMAN LISPRO (humaLOG) 100 UNITS/ML VIAL SC PRN (22:15)
[2019-10-07] MEDS ORDERED: GLUCAGON FOR INJ 1 MG VIAL SQ PRN ×2 (22:15→23:14)
[2019-10-07] MEDS: TRAMADOL HCL 50 MG TABLET PO PRN (22:26)
[2019-10-08] MEDS: TRAMADOL HCL 50 MG TABLET PO PRN ×4 (03:27→21:03)
[2019-10-08] MEDS: LEVOTHYROXINE SODIUM 112 MCG TABLET PO SCH (06:12)
[2019-10-08 06:15] LABS: Basophils # (auto) 0.02 K/uL (0-0.2); Basophils % (auto) 0.3 %; Eosinophils # (auto) 0.23 K/uL (0-0.5); Eosinophils % (auto) 3.8 %; Hematocrit (blood only) 25.7 % (42-52); Hemoglobin 8.5 g/dL (14.0-18.0); Immature Granulocytes # (auto) 0.02 K/uL (0.00-0.02); Immature Granulocytes % (auto) 0.3 %; Lymphocytes % (auto) 11.5 %; Mean Corpuscular Hemoglobin 33.6 pg (25-34); Mean Corpuscular Hgb Conc 33.1 g/dL (32-36); Mean Corpuscular Volume 101.6 fL (80-100); Monocytes % (auto) 11.5 %; Neutrophils # (auto) 4.42 K/uL (1.4-6.5); Neutrophils % (auto) 72.6 %; Platelet Count 165 K/uL (130-400); RDW Coefficient of Variation 15.4 % (11.5-14.5); RDW Standard Deviation 55.8 fL (36.4-46.3); Red Blood Count 2.53 M/uL (4.7-6.1); White Blood Count 6.09 K/uL (4.8-10.8)
[2019-10-08 06:45] LABS: Estimated Average Glucose 137 mg/dl; Hemoglobin A1C 6.4 % (4.5-5.6)
[2019-10-08 06:51] LABS: Albumin Level 2.2 gm/dl (3.4-5.0); BUN Creatinine Ratio 31.9 (10-20); Calcium 8.5 mg/dl (8.5-10.1); Creatinine Clr Calc Pharmacy 34.5 ml/min; Est GFR (African American) 39.3; Est GFR (Non-African American) 33.9; Potassium 5.7 mmol/L (3.5-5.1)
--- NOTE | 2019-10-08 06:58 | Ultrasound Report ---
US duplex aorta/iliacs/IVC ltd CLINICAL HISTORY: 74 years-old Male presenting with ?DVT. TECHNIQUE: Real-time grayscale and color and spectral Doppler ultrasound imaging of the iliac vessels was performed. COMPARISON: None. FINDINGS: The bilateral iliac veins were interrogated for the concern for deep venous thrombosis. No filling de fect within the iliac veins identified. No evidence of thrombosis. Normal color and spectral Doppler flow. IMPRESSION: 1. No evidence of deep venous thrombosis of the pelvic veins. ACT 112: Negative or not required by law. Electronically signed by: Ez Salazar M.D. 10/08/2019 6:57 AM
[2019-10-08 07:02] LABS: Albumin Globulin Ratio 0.6 (0.9-2); Globulin 3.9 gm/dl (2.5-4.0); Thyroid Stimulating Hormone 3.14 uIu/ml (0.300-4.500); Total Protein 6.1 gm/dl (6.4-8.2)
--- NOTE | 2019-10-08 07:03 | Ultrasound Report ---
US extremity non-vascular ltd CLINICAL HISTORY: 74 years-old Male presenting with ?right knee effusion, prepatellar bursitis. TECHNIQUE: Real-time grayscale ultrasound imaging of the right knee was performed for a focused evalu ation at the site of clinical concern. Color Doppler ultrasound imaging was also performed. COMPARISON: Plain radiographs from 10/07/2019. FINDINGS: The suprapatellar and prepatellar regions of the right knee was evaluated as the site of clinical int erest. A small anechoic collection is evident in the suprapatellar region likely indicating a small k nee joint effusion. No prepatellar fluid separately evident. The suprapatellar collection measures ap proximately 3.4 x 1.1 x 4.7 cm. Apparent filling defect within the effusion demonstrating color Doppl er flow may represent subjacent fat versus synovial thickening. Mild subcutaneous edema is present. IMPRESSION: 1. Small knee joint effusion is suspected. The location of the collection does not appear to be prep atellar to suggest bursitis and is rather suprapatellar. This argues against prepatellar bursitis. MR I would better distinguish between these entities. ACT 112: Negative or not required by law. Electronically signed by: Ez Salazar M.D. 10/08/2019 7:02 AM
[2019-10-08] MEDS: ISOSORBIDE MONO EXTENDED REL 60 MG TABCR PO SCH ×2 (08:01→21:06)
[2019-10-08] MEDS: APIXABAN 5 MG TABLET PO SCH ×2 (08:02→21:06)
[2019-10-08] MEDS: dilTIAZem HCL 30 MG TAB PO SCH ×2 (08:02→21:06)
[2019-10-08] MEDS: PANTOprazole 40 MG TAB PO SCH (08:03)
[2019-10-08 08:15] LABS: Folate (Folic Acid) > 24.00 ng/ml (>5.38); Vitamin B12 > 2000 pg/ml (211-911)
[2019-10-08] MEDS ORDERED: SODIUM POLYSTYRENE SULFONATE 15G/60ML SUSP PO SCH (09:00)
[2019-10-08] MEDS: CEROVITE ADV FORMULA TAB PO SCH (10:28)
[2019-10-08] MEDS: SODIUM CHLORIDE 0.45 % 500 ML IV SCH ×2 (11:19→15:27)
[2019-10-08] MEDS ORDERED: DAPTOMYCIN CONSULT ACTIVE PRN (11:47)
--- NOTE | 2019-10-08 11:47 | Hospitalist Progress Note ---
Date of Service October 08, 2019 Assessment & Plan (1) Knee pain, right: Suspicious for pseudogout (prior history of this) but given prior concern for cellulitis by orthopedics (as per ER note) and the ER for cellulitis with knee joint pain I discussed with Dr Vazquez to possibly perform knee aspiration to r/o septic arthritis before placing this diabetic patient with history of GI bleed on prednisone. Will defer antibiotics as no cellulitis present I can see and low likelihood of septic arthritis. XR right knee. US right knee requested by orthopedics to assess for effusion. Consult orthopedics placed Tramadol for pain. No NSAIDs given renal function. - Stable pain today. Discussed wtih ortho who feel this is a pre-patellar bursitis with infection. Will start IV abx, and they will monitor over the weekend. Hopefully it resolves, but if not, may need washout potentially if a pocket of fluid forms. - Start daptomycin (avoiding vanc due to CKD) (2) Right leg swelling: Likely inflammation from this has caused his swelling along with his poor venous drainage secondary to prior greater saphenous vein used in CABG. - Monitor with abx treatment. (3) Prepatellar bursitis: Erythema currently present represents prepatellar bursitis however the pain in knee is much more joint related. I suspect this is inflammatory rather than infected arising from joint inflammation from pseudogout. - Consult orthopedics: Plan as above (4) Pseudogout: History of this. (5) Macrocytic anemia: Anemia appears chronic but more acutely macrocytic. B12 and folate levels were high. Likely anemia of CKD. - Monitor (6) Elevated alkaline phosphatase level: I am unclear regarding the etiology of this although it appears to be relatively chronic it is worse than usual. Along with a macrocytic anemia and CKD I would consider SPEP/UPEP if not recently performed although I cannot rela te myeloma to his current acute issue causing his hospitalization. This was not discussed with him on admission. (7) Hyperkalemia: Appears to be slowly rising recently. - Hold Kayexelate for my concern for bowel necrosis - Giving IV fluids. Recheck this afternoon. If continues to rise, will treat with IV fluids and Lasix. Will need to avoid insulin as he is Type 1 diabetic and very sensitive. Could also consider albuterol, though renal excretion is the most effective route and albuerol is only temporary. (8) Presence of permanent cardiac pacemaker: (9) Afib: Anticoagulation with apixaban. - No indication of bleeding at this time. Rate control with diltiazem (prescription noted at 30mg BID but patient only takes 7.5mg or 15mg) (10) Diabetic foot ulcer: XR right foot and ankle as per wound care recommendations showed no osteomyelitis. - Orthopedics assessed the heal. They will monitor it over the weekend. (11) Diabetes mellitus type I: Patient to manage own insulin BSG ACHS with hypoglycemic protocol. Admission and Anticipated Discharge Date Admission Date: October 07, 2019 Subjective Continued knee pain. No change in erythema, warmth, or area of redness. Pain is unchanged this morning. Reports no fevers/chills, chest pain, shortness of breath, abdominal pain, nausea, or vomiting. Physical Exam Constitutional: WD/WN, vitals as above Eyes: EOM intact bilaterally; no conjunctival abnormality ENMT: external ear and nose normal, oropharynx normal Neck: trachea midline, no thyromegaly normal visual inspection Respiratory: normal respiratory effort, lungs clear to auscultation no respiratory distress Cardiovascular: RRR, no murmur, no edema Gastrointestinal (Abdomen): Inspection/Auscultation: abdomen normal to inspection; abdomen not distended Musculoskeletal: no cyanosis or clubbing, extremities motor strength 5/5 Knee: + skin erythema (Remains in outline of right knee.) Skin: no rashes, warm and dry Neurologic: moves all extremities and awake Psychiatric: Orientation: alert, oriented to person and cooperative Results & Data Results & Data ([facility]) Vital Signs (Past 12 Hours) Vital Signs Temp Pulse Resp BP Pulse Ox 10/08/19 07:26 36.7 C 71 16 133/64 99 PG Care Time/CCT Total # of Minutes Spent Total Time Spent with Patient: Total time spent is greater than 50% in coordination of care (as documented) at patient's floor/unit and/or counseling patient: Coding Level of Care Code 55671 Subseq Hosp Care Lvl 3 Diagnoses Knee pain, right M25.561 Chronicity: acute Right leg swelling M79.89 Prepatellar bursitis M70.41 Laterality: right Pseudogout M11.20 Macrocytic anemia D53.9 Elevated alkaline phosphatase level R74.8 Hyperkalemia E87.5 Presence of permanent cardiac pacemaker Z95.0 Afib I48.11 Atrial fibrillation type: longstanding persistent Diabetic foot ulcer E11.621; L97.509 Diabetes mellitus type I E10.9 (1) Knee pain, right Chronicity: acute Qualified Code(s): M25.561 - Pain in right knee (2) Prepatellar bursitis Laterality: right Qualified Code(s): M70.41 - Prepatellar bursitis, right knee (3) Afib Atrial fibrillation type: longstanding persistent Qualified Code(s): I48.11 - Longstanding persistent atrial fibrillation
[2019-10-08] MEDS: DAPTOmycin 300 MG in SYRINGE 0 ML IV SCH (14:31)
[2019-10-08 15:45] LABS: Calcium 8.7 mg/dl (8.5-10.1); Creatinine Clr Calc Pharmacy 29.1 ml/min; Est GFR (Non-African American) 27.6; Potassium 4.8 mmol/L (3.5-5.1)
[2019-10-08 15:52] LABS: Hematocrit (blood only) 30.8 % (42-52); Hemoglobin 9.9 g/dL (14.0-18.0)
--- NOTE | 2019-10-08 16:47 | Electrocardiogram Report ---
Test Reason : Blood Pressure : / mmHG Vent. Rate : 070 BPM Atrial Rate : 072 BPM P-R Int : 000 ms QRS Dur : 150 ms QT Int : 436 ms P-R-T Axes : 000 117 -32 degrees QTc Int : 470 ms Ventricular-paced rhythm Abnormal ECG When compared with ECG of 06-AUG-2019 12:53, Vent. rate has decreased BY 8 BPM Confirmed by Yaw Glaser ([id number]) on 10/08/2019 4:47:05 PM Referred By: Den Burch Confirmed By:Yaw Glaser
[2019-10-08] MEDS: FOLIC ACID 400 MCG TAB PO SCH (21:04)
[2019-10-08] MEDS: NEPHROCAPS PO SCH (21:05)
[2019-10-08] MEDS: ACYCLOVIR 400 MG TAB PO SCH (21:05)
[2019-10-08] MEDS: CHOLECALCIFEROL 1,000 UNITS 25 MCG TAB PO SCH (21:05)
[2019-10-08] MEDS: CLOPIDOGREL BISULFATE 75 MG TAB PO SCH (21:06)
[2019-10-08] MEDS: FERROUS SULFATE 325 MG TAB PO SCH (21:06)
[2019-10-08] MEDS: CYANOCOBALAMIN 500 MCG TABLET (VITAMIN B-12) PO SCH (21:06)
[2019-10-08] MEDS: MAGNESIUM OXIDE 400 MG TAB PO SCH (21:06)
[2019-10-08] MEDS: CALCIUM 600MG + VIT D 400 IU TAB PO SCH (21:06)
[2019-10-09] MEDS: LEVOTHYROXINE SODIUM 112 MCG TABLET PO SCH (05:25)
[2019-10-09 05:48] LABS: Hematocrit (blood only) 28.8 % (42-52); Hemoglobin 9.2 g/dL (14.0-18.0); Mean Corpuscular Hemoglobin 32.9 pg (25-34); Mean Corpuscular Hgb Conc 31.9 g/dL (32-36); Mean Corpuscular Volume 102.9 fL (80-100); Mean Platelet Volume 9.1 fL (7.4-10.4); Platelet Count 195 K/uL (130-400); RDW Coefficient of Variation 15.5 % (11.5-14.5); RDW Standard Deviation 58.4 fL (36.4-46.3); White Blood Count 6.63 K/uL (4.8-10.8)
[2019-10-09 06:21] LABS: BUN Creatinine Ratio 28.8 (10-20); Calcium 8.7 mg/dl (8.5-10.1); Creatinine Clr Calc Pharmacy 31.5 ml/min; Est GFR (African American) 35.2; Est GFR (Non-African American) 30.4; Potassium 5.5 mmol/L (3.5-5.1)
--- NOTE | 2019-10-09 07:53 | Orthopedic Progress Note ---
Date of Service October 09, 2019 Assessment & Plan (1) Prepatellar bursitis: He has prepatellar bursitis and cellulitis on his right knee. No evidence of septic joint. There is no fluid collection in the prepatellar bursa that would be amenable to surgical irrigation and debridement. I would recommend continued IV antibiotics to get this to resolve. He may weight-bear and do knee range of motion as tolerated. Admission and Anticipated Discharge Date Admission Date: October 07, 2019 Subjective He reports persistent pain in the anterior aspect of his right knee, as well as the entire right leg. He does note that the painful lymph nodes in his groin have resolved, but otherwise he does not feel like his leg has improved significantly. Physical Exam Physical Exam: Examination of the right knee shows erythema directly over the tibial tubercle. His tibial tubercle is quite prominent at baseline, and relatively symmetric with his opposite knee. X-ray shows significant arthritis in the knee, but also prominence and fragmentation at the tibial tubercle, consistent with a previous history of Harshal-Schlatter disease. There is significant tenderness to palpation in this area, but no palpable fluid collection. Ultrasound showed no fluid at the prepatellar bursal area. He does have a moderate knee joint effusion, but no evidence of a septic joint. The erythema seems to be centered directly around the tibial tubercle area. Results & Data ([facility]) Vital Signs (Past 12 Hours) Vital Signs Temp Pulse Pulse Resp BP Pulse Ox 10/09/19 07:03 36.5 C 70 14 132/64 99 10/08/19 23:24 36.4 C L 69 14 139/67 100 10/08/19 20:51 70 152/74 H (1) Prepatellar bursitis Laterality: right Qualified Code(s): M70.41 - Prepatellar bursitis, right knee
[2019-10-09] MEDS: dilTIAZem HCL 30 MG TAB PO SCH ×2 (08:43→20:10)
[2019-10-09] MEDS: CEROVITE ADV FORMULA TAB PO SCH (08:43)
[2019-10-09] MEDS: PANTOprazole 40 MG TAB PO SCH (08:44)
[2019-10-09] MEDS: APIXABAN 5 MG TABLET PO SCH ×2 (08:44→20:11)
[2019-10-09] MEDS: ISOSORBIDE MONO EXTENDED REL 60 MG TABCR PO SCH ×2 (08:44→20:12)
[2019-10-09] MEDS ORDERED: Continuous Glucose Monitor SCH (08:45)
[2019-10-09] MEDS ORDERED: SODIUM CHLORIDE 0.45 % 1,000 ML IV SCH (10:20)
[2019-10-09] MEDS: TRAMADOL HCL 50 MG TABLET PO PRN ×2 (10:48→23:19)
[2019-10-09] MEDS: DAPTOmycin 300 MG in SYRINGE 0 ML IV SCH (12:11)
--- NOTE | 2019-10-09 13:19 | Hospitalist Progress Note ---
Date of Service October 09, 2019 Assessment & Plan (1) Knee pain, right: Suspicious for pseudogout (prior history of this) XR right knee - no acute fracture, small to moderate right knee joint effusion, moderate to severe right knee OA. US right knee - small joint effusion, no prepatellar collection. Appreciate orthopedics Tramadol for pain. No NSAIDs given renal function. No prednisone given infection present. - Stable pain today. Orthopedics diagnosed infected pre-patellar bursitis. Started on Daptomycin 10/07 given failed outpatient antibiotics without coverage for MRSA, may need washout potentially if a pocket of fluid forms. 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 No LE DVT on recent US in ER. No DVT on iliac. Unable to get CT with contrast due to renal function. - Monitor with abx treatment. (3) Prepatellar bursitis: Suspected infected by orthopedics. Continue daptomycin as above. Not much change since admission. Will monitor with repeat inflammatory markers. - Consulted orthopedics: Plan as above (4) Pseudogout: History of this. I am still concerned this is causing his right knee effusion given good response to ibuprofen as outpatient however understand reluctance to aspirate knee joint in setting of suspected bursa infection. He clearly has OA that could explain this in addition. (5) Macrocytic anemia: Anemia appears chronic but more acutely macrocytic. B12 and folate levels were high. Likely anemia of CKD. - Monitor (6) Elevated alkaline phosphatase level: Unclear etiology of this but appears rather chronic with acute elevation. Will continue to trend. Consider SPEP/UPEP as outpatient. (7) Hyperkalemia: Appears to be slowly rising recently. Continue to monitor but does not appear to be acutely significantly changing in setting of infection. Kayexalate stopped as concern for bowel necrosis. Will continue to monitor renal function prior to starting lasix if this is required. (8) Presence of permanent cardiac pacemaker: placed for history of CHB (9) Afib: Anticoagulation with apixaban. - No indication of bleeding at this time. Rate control with diltiazem (prescription noted at 30mg BID but patient only takes 7.5mg or 15mg) (10) Diabetic foot ulcer: XR right foot and ankle as per wound care recommendations showed no osteomyelitis. - Orthopedics assessed the heal. They will monitor it over the weekend. (11) Diabetes mellitus type I: Patient to manage own insulin BSG ACHS with hypoglycemic protocol. Admission and Anticipated Discharge Date Admission Date: October 07, 2019 Subjective Patient reports persistent right leg pain. Feels worse this morning and superior to patellar but he feels that is more muscle spasm related to his leg being lifted up earlier. Otherwise no fever or chills. Continued groin tenderness but without lymphadenopathy. He reports continuing to feel dry. No shortness of breath or chest pain. Review of Systems Review of Systems: All systems reviewed & are unremarkable except as noted in HPI & below Physical Exam Constitutional: well developed; no acute distress Eyes: + anicteric sclerae; normal pupil size ENMT: external ear and nose normal, oropharynx normal Neck: trachea midline, no thyromegaly Respiratory: normal respiratory effort, lungs clear to auscultation Cardiovascular: Rate/Rhythm: regular rate and regular rhythm Extremities: normal capillary refill and + edema (Right lower extremity up to hip 1+); no calf tenderness Gastrointestinal (Abdomen): Inspection/Auscultation: normal bowel sounds Percussion/Palpation: abdomen soft; abdomen nontender, no guarding and abdomen not rigid Skin: No significant change in erythema surrounding right knee. Knee effusion still present with pain now superior to patella Neurologic: moves all extremities and awake Motor/Sensory: + sensory deficit (peripheral neuropathy in feet b/l) Psychiatric: A+Ox3, euthymic affect Lymphatic: no inguinal lymphadenopathy Results & Data Results & Data ([facility]) Vital Signs (Past 12 Hours) Vital Signs Temp Pulse Resp BP Pulse Ox 10/09/19 07:03 36.5 C 70 14 132/64 99 PG Care Time/CCT Total # of Minutes Spent Total Time Spent with Patient: Total time spent is greater than 50% in coordination of care (as documented) at patient's floor/unit and/or counseling patient: Coding Level of Care Code 40404 Subseq Hosp Care Lvl 3 Diagnoses Knee pain, right M25.561 Chronicity: acute Right leg swelling M79.89 Prepatellar bursitis M70.41 Laterality: right Pseudogout M11.20 Macrocytic anemia D53.9 Elevated alkaline phosphatase level R74.8 Hyperkalemia E87.5 Presence of permanent cardiac pacemaker Z95.0 Afib I48.11 Atrial fibrillation type: longstanding persistent Diabetic foot ulcer E11.621; L97.509 Diabetes mellitus type I E10.9 (1) Prepatellar bursitis Laterality: right Qualified Code(s): M70.41 - Prepatellar bursitis, right knee (2) Afib Atrial fibrillation type: longstanding persistent Qualified Code(s): I48.11 - Longstanding persistent atrial fibrillation (3) Knee pain, right Chronicity: acute Qualified Code(s): M25.561 - Pain in right knee
[2019-10-09] MEDS: ACETAMINOPHEN 325 MG TAB PO PRN ×2 (17:05→23:19)
[2019-10-09] MEDS: NEPHROCAPS PO SCH (20:11)
[2019-10-09] MEDS: FOLIC ACID 400 MCG TAB PO SCH (20:11)
[2019-10-09] MEDS: ACYCLOVIR 400 MG TAB PO SCH (20:11)
[2019-10-09] MEDS: CYANOCOBALAMIN 500 MCG TABLET (VITAMIN B-12) PO SCH (20:11)
[2019-10-09] MEDS: CHOLECALCIFEROL 1,000 UNITS 25 MCG TAB PO SCH (20:11)
[2019-10-09] MEDS: MAGNESIUM OXIDE 400 MG TAB PO SCH (20:12)
[2019-10-09] MEDS: FERROUS SULFATE 325 MG TAB PO SCH (20:12)
[2019-10-09] MEDS: CALCIUM 600MG + VIT D 400 IU TAB PO SCH (20:12)
[2019-10-09] MEDS: CLOPIDOGREL BISULFATE 75 MG TAB PO SCH (20:12)
[2019-10-10 05:39] LABS: Basophils # (auto) 0.06 K/uL (0-0.2); Basophils % (auto) 1.1 %; Eosinophils # (auto) 0.22 K/uL (0-0.5); Eosinophils % (auto) 3.9 %; Hematocrit (blood only) 26.7 % (42-52); Hemoglobin 8.7 g/dL (14.0-18.0); Immature Granulocytes # (auto) 0.01 K/uL (0.00-0.02); Immature Granulocytes % (auto) 0.2 %; Lymphocytes # (auto) 0.89 K/uL (1.2-3.4); Lymphocytes % (auto) 15.6 %; Mean Corpuscular Hemoglobin 33.2 pg (25-34); Mean Corpuscular Hgb Conc 32.6 g/dL (32-36); Mean Corpuscular Volume 101.9 fL (80-100); Mean Platelet Volume 8.9 fL (7.4-10.4); Monocytes # (auto) 0.87 K/uL (0.11-0.59); Monocytes % (auto) 15.2 %; Neutrophils # (auto) 3.66 K/uL (1.4-6.5); Platelet Count 150 K/uL (130-400); RDW Coefficient of Variation 15.3 % (11.5-14.5); RDW Standard Deviation 56.4 fL (36.4-46.3); Red Blood Count 2.62 M/uL (4.7-6.1); White Blood Count 5.71 K/uL (4.8-10.8)
[2019-10-10] MEDS: LEVOTHYROXINE SODIUM 112 MCG TABLET PO SCH (05:40)
[2019-10-10 06:11] LABS: Albumin Level 2.3 gm/dl (3.4-5.0); BUN Creatinine Ratio 27.8 (10-20); Calcium 8.3 mg/dl (8.5-10.1); Creatinine Clr Calc Pharmacy 26.9 ml/min; Est GFR (African American) 29.1; Est GFR (Non-African American) 25.1; Potassium 5.6 mmol/L (3.5-5.1)
[2019-10-10 06:13] LABS: Albumin Globulin Ratio 0.6 (0.9-2); C Reactive Protein 6.94 mg/dl (0-0.29); Globulin 3.9 gm/dl (2.5-4.0); Total Protein 6.2 gm/dl (6.4-8.2)
[2019-10-10] MEDS: PANTOprazole 40 MG TAB PO SCH (08:44)
[2019-10-10] MEDS: ISOSORBIDE MONO EXTENDED REL 60 MG TABCR PO SCH ×2 (08:44→20:40)
[2019-10-10] MEDS: CEROVITE ADV FORMULA TAB PO SCH ×3 (08:44→20:40)
[2019-10-10] MEDS: dilTIAZem HCL 30 MG TAB PO SCH ×2 (08:45→20:39)
[2019-10-10] MEDS: APIXABAN 5 MG TABLET PO SCH ×2 (08:46→21:01)
[2019-10-10] MEDS: SODIUM CHLORIDE 0.45 % 1,000 ML IV SCH ×2 (08:47→20:49)
--- NOTE | 2019-10-10 09:02 | Orthopedic Progress Note ---
Date of Service October 10, 2019 Assessment & Plan (1) Prepatellar bursitis: He has prepatellar bursitis and cellulitis on his right knee. No evidence of septic joint. He hasn't had much improvement in the erythema or tenderness, but he would like to continue conservative management. The patient was eating breakfast when I came into his room so operative tx would need to be at least 8 hours from that time. WBAT RLE and ROM as tolerated with the right knee. Will discuss exam findings with Dr. Sanchez. Admission and Anticipated Discharge Date Admission Date: October 07, 2019 Supervising Physician Co-Signing Physician Notes Patient was seen and examined this morning. I agree with ISRAEL Ervin's note as above. Overall, the appearance of the right knee is not significantly different than yesterday. He continues to have a moderate knee joint effusion, likely related to his underlying arthritis, but no tenderness there or evidence of a se ptic joint. His main area of pain again seems to be directly around the tibial tubercle. It is still erythematous, but seems a little less tender to palpation today compared to yesterday. The appearance is certainly no worse than yesterday. The tibial tubercle is quite prominent, consistent with his underlying Harshal-Schlatter's disease, and not significantly asymmetric from his other knee. I still cannot palpate any fluid collection or fluctuance in this area. Again, previous ultrasound of this area showed no abscess or fluid collection. He reports that the internal medicine team told him this morning that they were going to switch his antibiotics. I think at this point it may be prudent to get an MRI of his knee to get a more detailed evaluation of this area. He reports that he does have a pacemaker which has precluded MRI in the past, but he is unsure whether this is MRI compatible; he says that someone is actively looking into this. Again, this seems to be most consistent with cellulitis, and I still do not see any indication for surgical intervention at this point. Subjective Still having anterior right knee pain. No significant improvement that he can see over the past 2 days of IV antibiotics. However, he states he would like to give the medicine more time to work. Physical Exam Constitutional: WD/WN, vitals as above Musculoskeletal: Knee: + deformity (right knee--prominent tibial tubercle), + skin erythema (right knee over tibial tubercle. Outlined erythema stable, unimproved) and + joint line tenderness (right knee over tibial tubercle, moderate to severe); no effusion Neurologic: normal touch/pain/proprioception Psychiatric: A+Ox3, euthymic affect Speech: normal rate/rhythm/volume of speech Results & Data ([facility]) Vital Signs (Past 12 Hours) Vital Signs Temp Pulse Resp BP Pulse Ox 10/10/19 07:34 36.7 C 58 L 18 117/67 98 10/09/19 23:17 36.7 C 68 16 123/73 96 (1) Prepatellar bursitis Laterality: right Qualified Code(s): M70.41 - Prepatellar bursitis, right knee
[2019-10-10 09:54] LABS: Appearance Urine Clear (Clear); Bacteria Urine Automated Negative (Negative); Bilirubin Urine Negative (Negative); Blood Urine Negative (Negative); Color Urine Dark Yellow; Glucose Urine UA Negative (Negative); Ketones Urine Negative (Negative); Leukocyte Esterase Urine Negative (Negative); Nitrite Urine Negative (Negative); Protein Urine 1+ (Negative); Specific Gravity Urine 1.021 (1.000-1.030); Urobilinogen Urine Negative (Negative)
[2019-10-10 10:33] LABS: Protein Creatinine Ratio Urine 0.5 (0-0.2); Total Protein Urine Random 57.9 mg/dl (0-11.9)
[2019-10-10] MEDS ORDERED: CEFEPIME CONSULT ACTIVE PRN (10:42)
[2019-10-10] MEDS ORDERED: CEFEPIME 2,000 MG in SYRINGE 7.5 ML IV STA (10:46)
[2019-10-10] MEDS ORDERED: Nursing to Pharmacy Communication ONE (10:57)
[2019-10-10] MEDS: FEXOFENADINE 60 MG TAB PO SCH (11:19)
[2019-10-10 17:01] LABS: BUN Creatinine Ratio 26.1 (10-20); Calcium 8.8 mg/dl (8.5-10.1); Creatinine Clr Calc Pharmacy 23.2 ml/min; Est GFR (African American) 24.3; Iron 26 mcg/dl (35-175); Transferrin 161 mg/dl (200-360); Transferrin Percent Saturation 11 % (20-50)
[2019-10-10] MEDS: FOLIC ACID 400 MCG TAB PO SCH (20:39)
[2019-10-10] MEDS: ACYCLOVIR 400 MG TAB PO SCH (20:39)
[2019-10-10] MEDS: CLOPIDOGREL BISULFATE 75 MG TAB PO SCH (20:39)
[2019-10-10] MEDS: CALCIUM 600MG + VIT D 400 IU TAB PO SCH (20:40)
[2019-10-10] MEDS: CHOLECALCIFEROL 1,000 UNITS 25 MCG TAB PO SCH (20:40)
[2019-10-10] MEDS: NEPHROCAPS PO SCH (20:40)
[2019-10-10] MEDS: CYANOCOBALAMIN 500 MCG TABLET (VITAMIN B-12) PO SCH (20:40)
[2019-10-10] MEDS: FERROUS SULFATE 325 MG TAB PO SCH (20:41)
[2019-10-10] MEDS: MAGNESIUM OXIDE 400 MG TAB PO SCH (20:41)
--- NOTE | 2019-10-10 23:59 | Hospitalist Progress Note ---
Date of Service October 10, 2019 Assessment & Plan (1) Knee pain, right: ?pseudogout (prior history of this) XR right knee - no acute fracture, small to moderate right knee joint effusion, moderate to severe right knee OA. US right knee - small joint effusion, no prepatellar collection. Appreciate orthopedics review - felt to be secondary inflammation to infected bursa. Tramadol for pain. No NSAIDs given renal function. No prednisone given infection present. 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 No LE DVT on recent US in ER. No DVT on iliac. Unable to get CT with contrast due to renal function but he is already taking apixaban - Monitor with abx treatment. (3) Prepatellar bursitis: Suspected infected by orthopedics. Broaden antibiotic coverage and add cefepime to daptomycin. Inflammatory markers increasing and worsening symptoms. Will defer possible washout to orthopedics, although withoua definitive plan will continue his apixaban at present. - Consulted orthopedics: Plan as above (4) Pseudogout: History of this. I am still concerned this is causing his right knee effusion given good response to ibuprofen as outpatient however understand reluctance to aspirate knee joint in setting of suspected bursa infection. He clearly has OA that could explain this in addition. (5) Macrocytic anemia: Anemia appears chronic but more acutely macrocytic. B12 and folate levels were high. Likely anemia of CKD. Iron studies also suggest some iron def (see below) - Monitor (6) Elevated alkaline phosphatase level: Unclear etiology of this but appears rather chronic with acute elevation. Will continue to trend. Consider SPEP/UPEP as outpatient. (7) Hyperkalemia: Appears to be slowly rising recently. Continue to monitor but does not appear to be acutely significantly changing in setting of infection. Repeat BMP in afternoon as we rehydrate Will continue to monitor renal function prior to starting lasix if this is required. (8) Presence of permanent cardiac pacemaker: placed for history of CHB (9) Afib: Anticoagulation with apixaban. - No indication of bleeding at this time. Rate control with diltiazem (prescription noted at 30mg BID but patient only takes 7.5mg or 15mg) (10) Diabetic foot ulcer: XR right foot and ankle as per wound care recommendations showed no osteomyelitis. - Orthopedics assessed the heal. (11) Diabetes mellitus type I: Patient to manage own insulin BSG ACHS with hypoglycemic protocol. (12) Anemia in CKD (chronic kidney disease): Also with transferrin sats 10%. Consider iron transfusion prior to discharge. Follow up outpatient regarding FOB +ve stool (13) Fecal occult blood test positive: Transferrin sats 10%. Will defer iron transfusion at present given current illness. History of GI bleed. Continue pantoprazole. Monitor CBC, Hgb relatively stable but fluctuating therefore will continue apixaban at present. (14) Chronic kidney disease, stage 3: Fluctuating but current Cr rising. 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 Admission and Anticipated Discharge Date Admission Date: October 07, 2019 Subjective Patient reports worsening right leg pain espicially with any knee movement. Severity of pain 7/10 but refusing anything stronger than tramadol for pain. No fever or chills. No new trauma. No spreading erythema but this hasn't changed much since admission. Worsening renal function but he denies any change in his urine or CVA tenderness. Discussed pacemaker again and discussed with his . Sent details to MRI who confirmed non-compatibility. Updated his over the phone. Review of Systems Review of Systems: All systems reviewed & are unremarkable except as noted in HPI & below Physical Exam Constitutional: well developed; no acute distress Eyes: + anicteric sclerae; normal pupil size ENMT: external ear and nose normal, oropharynx normal Neck: trachea midline, no thyromegaly Respiratory: normal respiratory effort, lungs clear to auscultation Cardiovascular: Rate/Rhythm: regular rate and regular rhythm Extremities: normal capillary refill and + edema (Right lower extremity up to hip 2+) Gastrointestinal (Abdomen): Inspection/Auscultation: normal bowel sounds Percussion/Palpation: abdomen soft; abdomen nontender, no guarding and abdomen not rigid Musculoskeletal: Pain mainly around right knee on light palpation with effusion present. Erythema appears darker and within drawn area on admission. Skin: + erythema (cellulitis as described about) Neurologic: moves all extremities and awake Motor/Sensory: + sensory deficit (peripheral neuropathy in feet b/l) Psychiatric: A+Ox3, euthymic affect Lymphatic: no inguinal lymphadenopathy Results & Data Results & Data ([facility]) Vital Signs (Past 12 Hours) Vital Signs Temp Pulse Resp BP Pulse Ox 10/10/19 23:20 36.7 C 74 16 142/64 H 100 10/10/19 15:31 36.6 C 69 16 117/65 99 PG Care Time/CCT Total # of Minutes Spent Total Time Spent with Patient: Total time spent is greater than 50% in coordination of care (as documented) at patient's floor/unit and/or counseling patient: Coding Level of Care Code 88682 Subseq Hosp Care Lvl 3 Diagnoses Knee pain, right M25.561 Chronicity: acute Right leg swelling M79.89 Prepatellar bursitis M70.41 Laterality: right Pseudogout M11.20 Macrocytic anemia D53.9 Elevated alkaline phosphatase level R74.8 Hyperkalemia E87.5 Presence of permanent cardiac pacemaker Z95.0 Afib I48.11 Atrial fibrillation type: longstanding persistent Diabetic foot ulcer E11.621; L97.509 Diabetes mellitus type I E10.9 Anemia in CKD (chronic kidney disease) N18.9; D63.1 Fecal occult blood test positive R19.5 Chronic kidney disease, stage 3 N18.3 (1) Knee pain, right Chronicity: acute Qualified Code(s): M25.561 - Pain in right knee (2) Prepatellar bursitis Laterality: right Qualified Code(s): M70.41 - Prepatellar bursitis, right knee (3) Afib Atrial fibrillation type: longstanding persistent Qualified Code(s): I48.11 - Longstanding persistent atrial fibrillation
[2019-10-11 06:09] LABS: Basophils % (auto) 0.8 %; Eosinophils # (auto) 0.15 K/uL (0-0.5); Hematocrit (blood only) 25.3 % (42-52); Hemoglobin 8.3 g/dL (14.0-18.0); Immature Granulocytes % (auto) 0.2 %; Lymphocytes # (auto) 0.93 K/uL (1.2-3.4); Lymphocytes % (auto) 18.3 %; Mean Corpuscular Hemoglobin 33.1 pg (25-34); Mean Corpuscular Hgb Conc 32.8 g/dL (32-36); Mean Corpuscular Volume 100.8 fL (80-100); Monocytes % (auto) 13.8 %; Neutrophils # (auto) 3.24 K/uL (1.4-6.5); Neutrophils % (auto) 63.9 %; Platelet Count 143 K/uL (130-400); RDW Standard Deviation 55.5 fL (36.4-46.3); Red Blood Count 2.51 M/uL (4.7-6.1); White Blood Count 5.07 K/uL (4.8-10.8)
[2019-10-11 06:10] LABS: Basophils # (auto) 0.04 K/uL (0-0.2); Immature Granulocytes # (auto) 0.01 K/uL (0.00-0.02)
[2019-10-11] MEDS: LEVOTHYROXINE SODIUM 112 MCG TABLET PO SCH (06:28)
--- NOTE | 2019-10-11 06:45 | Ultrasound Report ---
RENAL ULTRASOUND CLINICAL HISTORY: ROMA on CKD COMPARISON STUDY: CT of the abdomen and pelvis May 13, 2017. TECHNIQUE: Sonography of the kidneys and the urinary bladder was performed. FINDINGS: There is no hydronephrosis. The right kidney measures 9.3 cm in maximal dimension and the l eft measures 7.7 cm. There is mild renal cortical thinning. No renal mass or calculus is identified b y sonography. Both ureteral jets were identified. There is mild bladder wall thickening. IMPRESSION: No hydronephrosis. ACT 112: Negative or not required by law. Electronically signed by: Servando Tidwell M.D. 10/11/2019 6:44 AM
[2019-10-11 06:51] LABS: Albumin Level 2.2 gm/dl (3.4-5.0); BUN Creatinine Ratio 28.1 (10-20); Calcium 8.4 mg/dl (8.5-10.1); Creatinine Clr Calc Pharmacy 26.4 ml/min; Est GFR (African American) 28.4; Est GFR (Non-African American) 24.5
[2019-10-11 06:54] LABS: Albumin Globulin Ratio 0.6 (0.9-2); Bilirubin,Total 1.2 mg/dl (0.2-1); Globulin 3.9 gm/dl (2.5-4.0); Total Protein 6.1 gm/dl (6.4-8.2)
[2019-10-11] MEDS: FEXOFENADINE 60 MG TAB PO SCH (08:35)
[2019-10-11] MEDS: dilTIAZem HCL 30 MG TAB PO SCH ×2 (08:35→20:52)
[2019-10-11] MEDS: APIXABAN 5 MG TABLET PO SCH ×2 (08:35→20:53)
[2019-10-11] MEDS: ISOSORBIDE MONO EXTENDED REL 60 MG TABCR PO SCH ×2 (08:36→20:52)
[2019-10-11] MEDS: PANTOprazole 40 MG TAB PO SCH (08:36)
[2019-10-11] MEDS: SODIUM CHLORIDE 0.45 % 1,000 ML IV SCH (08:42)
[2019-10-11] MEDS: CEFEPIME 1,000 MG in SYRINGE 0 ML IV SCH (09:09)
[2019-10-11] MEDS ORDERED: IRON SUCROSE 200 MG in 0.9 % SODIUM CHLORIDE 100 ML IV ONE (10:30)
--- NOTE | 2019-10-11 11:12 | Nephrology Consultation ---
Date of Consultation October 11, 2019 Assessment & Plan (1) Pmweg-or-nrwyfkc kidney injury: Creatinine improved with positive fluid balance. Appears relatively euvolemic on exam with some evidence of right heart failure. NSS stopped this AM. Non-oliguric. Will monitor I/O's. No diuretics at this time. Electrolytes acceptable. Hyperkalemia associated with ROMA improved. Low K diet ordered. Repeat metabolic profile tomorrow AM. Mild NAGMA associated with kidney dysfunction. Medications appropriate for kidney dysfunction. UA: +1 protein (chronic), few RBC's. US: right kidney 9.3 cm, L kidney 7.3 cm. No obstruction. (2) Chronic kidney disease, stage 3: Baseline creatinine 1.9-2.1 mg/dL. Diabetic nephropathy. Follows with Dr. Bridges. (3) Anemia in CKD (chronic kidney disease): Hemoglobin stable. FOBT stable. On anticoagulation. No signs of active bleeding. Chronic history. IV venofer 200 mg provided today. Will monitor. (4) Diastolic dysfunction: No evidence of decompensated CHF at this time. (5) Presence of permanent cardiac pacemaker: (6) Afib: Controlled. Anticoagulated. History of Present Illness Reason for Consultation: ROMA Requesting Physician: Den Goff Attending Physician: Den Goff History of Present Illness Mr. Talon Blake is a 74-year-old male with CKD. Nephrology consultation provided today for ROMA. Talon was admitted to [facility] on 10/06 with prepatellar bursitis and infection of the right knee. He remains on cefepime and daptomycin. Suspected pseudogout based on prior history. No surgical intervention planned at this time. Appetite has been poor. Oral intake decreased. Creatinine peaked at 2.8 mg/dL yesterday. Improved with IV saline. Urine output non-oliguric. Breathing comfortably. Renal US did not demonstrate evidence of obstruction. Talon follows in the outpatient clinic with Dr. Bridges. Baseline creatinine has been 1.9-2.1 mg/dL. CKD attributed to diabetic nephropathy. Renal artery Doppler 03/06 was negative for large vessel stenosis. Medical history is notable for diabetes mellitus, CAD, hypertension, recurrent atrial fibrillation/flutter, pacer, pulmonary hypertension, as well as anemia with recurrent iron deficiency requiring IV replacement in the past. Osteomyelitis R great toe - s/p amputation of the R great toe 01/19/[address] Ayoub. Allergies Allergy/AdvReac Type Severity Reaction Status Date / Time No Known Allergies Allergy Verified 10/07/19 14:13 Home Medications Home Medications Medication Instructions Recorded Confirmed Type cholecalciferol (vitamin D3) 50 2,000 units PO HS 04/07/18 10/07/19 History mcg (2,000 unit) capsule cyanocobalamin (vitamin B-12) 1,000 mcg PO HS 04/07/18 10/07/19 History 1,000 mcg capsule magnesium oxide 400 mg PO HS cap 04/07/18 10/07/19 History apixaban 5 mg tablet 5 mg PO BID 12/31/18 10/07/19 History blood-glucose transmitter #1 ea 12/31/18 09/23/19 History PreserVision AREDS-2 1 tab PO BID 01/04/19 10/07/19 History folic acid 800 mcg tablet 800 mcg PO HS 01/29/19 10/07/19 History atorvastatin 80 mg PO HS 02/01/19 10/07/19 History nitroglycerin 0.4 mg sublingual 0.4 mg SL Q5M PRN #60 tab 02/10/19 10/07/19 Rx tablet Humalog U-100 Insulin 100 unit/mL 100 units SQ .COMPLEX #9 vial NS 03/22/19 10/07/19 Rx subcutaneous solution levothyroxine 112 mcg tablet 112 mcg PO QAM #90 tab 03/22/19 10/07/19 Rx ferrous sulfate 325 mg PO HS 05/31/19 10/07/19 History isosorbide mononitrate 60 mg PO BID 05/31/19 10/07/19 History furosemide 20 mg tablet 20 mg PO DAILY PRN tab 06/28/19 10/07/19 History B complex with C 20-folic acid 1 cap PO HS 08/06/19 10/07/19 History [Renal Caps] acyclovir 400 mg PO HS 08/06/19 10/07/19 History calcium carb and citrate-vitD3 1 tab PO HS 08/06/19 10/07/19 History [Citracal + D Slow Release] clopidogrel 75 mg PO HS 08/06/19 10/07/19 History pantoprazole 40 mg PO QAM 08/06/19 10/07/19 History cephalexin 500 mg PO Q12H 7 Days #14 cap 10/04/19 10/07/19 Rx diltiazem HCl 7.5 mg PO BID 10/04/19 10/07/19 History doxycycline hyclate 100 mg PO BID 7 Days #14 cap 10/04/19 10/07/19 Rx ibuprofen [Advil] 200 mg PO Q6H PRN 10/04/19 10/07/19 History Patient History Surgical History (Updated 09/08/19 @ 12:34 by FAITH Sorensen) History of amputation of lesser toe of right foot (Acute) History of aortic valve replacement 2013 History of appendectomy History of arthroscopy of left shoulder History of cardiac cath 2017 [place] [facility] [place] [facility] [place] CABG History of coronary artery bypass graft x 3 1993 History of cystoscopy W/ STONE EXTRACTION 03/20/17: LMA #5 History of esophagogastroduodenoscopy (EGD) History of gastric bypass 20 YEARS AGO - FOR DM History of hand surgery Lt History of inguinal hernia repair Rt 03/02/14: MAC #4, ETT #7.5, Oral, Grade 2 View History of laminectomy CERVICAL SPINE History of radiofrequency ablation procedure for cardiac arrhythmia History of tonsillectomy Hx of heart artery stent 2006 Presence of permanent cardiac pacemaker (Chronic) S/P left knee arthroscopy S/P right knee arthroscopy Status post endovenous radiofrequency ablation of saphenous vein Family History (Updated 09/08/19 @ 12:35 by FAITH Sorensen) Father Coronary heart disease Myocardial infarction Brother Diabetes Mother Diabetes Cancer Denies family history of Colon cancer Ovarian cancer Prostate cancer Breast cancer Social History Preferred Language: [place] Communication Ability: Effective Visual Impairment: No Limitations 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: Normal Vp Of Digital Marketing Required: No Beliefs That Will Affect Care: None marital status: Current Living Situation: Spouse current occupational status: retired current occupation: Retired Other Information That Helps Us Care for You: No Feels Safe at Home: Yes Safety Concerns: Feels Safe At This Time Smoking Status: Never smoker Second Hand Exposure: No ; Hx Alcohol Use: No Hx Substance Use: No Review of Systems Review of Systems: All systems reviewed & are unremarkable except as noted in HPI & below Physical Exam Constitutional: + well hydrated; no acute distress Eyes: + anicteric sclerae ENMT: Mouth: no oral mucosal abnormality and oral mucous membranes not dry Neck: normal visual inspection and trachea midline Respiratory: normal respiratory effort Auscultation: lungs clear to auscultation bilaterally Cardiovascular: Rate/Rhythm: regular rate Heart Sounds: normal S1, normal S2 and + murmur Vessels: + JVD Extremities: + edema (R>L pitting BL to the knee) Gastrointestinal (Abdomen): Percussion/Palpation: abdomen soft; abdomen nontender Musculoskeletal: Extremities: no cyanosis and no clubbing Knee: + knee abnormal to inspection, + effusion and + ecchymosis Skin: + ecchymosis chronic LE stasis changes Neurologic: Motor/Sensory: no tremor and no asterixis Results & Data Vital Signs (Past 12 Hours) Vital Signs Temp Pulse Pulse Resp BP BP Pulse Ox 10/11/19 11:00 36.6 C 71 18 145/68 H 99 10/11/19 07:30 36.6 C 70 18 145/72 H 99 10/10/19 23:20 36.7 C 74 16 142/64 H 100 Laboratory Results Laboratory Results - last 24 hr 10/10/19 10/10/19 10/10/19 16:05 16:05 16:05 WBC RBC Hgb Hct MCV MCH MCHC RDW Std Deviation RDW Coeff of Seferino Plt Count MPV Immature Gran % (Auto) Neut % (Auto) Lymph % (Auto) [place] % (Auto) Eos % (Auto) Baso % (Auto) Immature Gran # (Auto) Neut # (Auto) Lymph # (Auto) [place] # (Auto) Eos # (Auto) Baso # (Auto) Sodium 137 Potassium 5.0 Chloride 109 H Carbon Dioxide 19 L Anion Gap 9.0 BUN 73 H Creatinine 2.80 H D Est Cr Clr Drug Dosing 23.2 Est GFR ( Amer) 24.3 Est GFR (Non-Af Amer) 21.0 BUN/Creatinine Ratio 26.1 H Glucose 88 Calcium 8.8 Iron 26 L Transferrin 161 L Transferrin % Sat 11 L Total Bilirubin AST ALT Alkaline Phosphatase Total Protein Albumin Globulin Albumin/Globulin Ratio Blood Type O Positive Antibody Screen NEGATIVE 10/11/19 10/11/19 05:58 05:58 WBC 5.07 RBC 2.51 L Hgb 8.3 L Hct 25.3 L MCV 100.8 H MCH 33.1 MCHC 32.8 RDW Std Deviation 55.5 H RDW Coeff of Seferino 15.0 H Plt Count 143 MPV 9.0 Immature Gran % (Auto) 0.2 Neut % (Auto) 63.9 Lymph % (Auto) 18.3 [place] % (Auto) 13.8 Eos % (Auto) 3.0 Baso % (Auto) 0.8 Immature Gran # (Auto) 0.01 Neut # (Auto) 3.24 Lymph # (Auto) 0.93 L [place] # (Auto) 0.70 H Eos # (Auto) 0.15 Baso # (Auto) 0.04 Sodium 139 Potassium 5.0 Chloride 112 H Carbon Dioxide 19 L Anion Gap 8.0 BUN 69 H Creatinine 2.46 H D Est Cr Clr Drug Dosing 26.4 Est GFR ( Amer) 28.4 Est GFR (Non-Af Amer) 24.5 BUN/Creatinine Ratio 28.1 H Glucose 80 Calcium 8.4 L Iron Transferrin Transferrin % Sat Total Bilirubin 1.2 H AST 30 ALT 30 Alkaline Phosphatase 459 H Total Protein 6.1 L Albumin 2.2 L Globulin 3.9 Albumin/Globulin Ratio 0.6 L Blood Type Antibody Screen PG Care Time/CCT Total # of Minutes Spent Total Time Spent with Patient: Total time spent is greater than 50% in coordination of care (as documented) at patient's floor/unit and/or counseling patient: Coding Level of Care Code 02787 Inpt Consult Level 4 Diagnoses Epnuv-zi-roywfoi kidney injury N17.9; N18.9 Chronic kidney disease, stage 3 N18.3 Anemia in CKD (chronic kidney disease) N18.9; D63.1 Diastolic dysfunction I51.89 Presence of permanent cardiac pacemaker Z95.0 Afib I48.11 Atrial fibrillation type: longstanding persistent (1) Afib Atrial fibrillation type: longstanding persistent Qualified Code(s): I48.11 - Longstanding persistent atrial fibrillation
[2019-10-11] MEDS ORDERED: DAPTOmycin 300 MG in SYRINGE 0 ML IV SCH (12:00)
[2019-10-11] MEDS: ACETAMINOPHEN 325 MG TAB PO PRN (13:13)
[2019-10-11] MEDS: TRAMADOL HCL 50 MG TABLET PO PRN (13:13)
--- NOTE | 2019-10-11 16:35 | Orthopedic Progress Note ---
Date of Service October 11, 2019 Assessment & Plan (1) Prepatellar bursitis: Right knee effusion and cellulitis. Continue with conservative tx at this time. With patient's known history with previous pseudogout in his right knee and moderate effusion, I would continue IV abx for cellulitis and treat empirically for psuedogout at this time. If symptoms persist or worsen would consider knee arthrocentesis. Ice/elevation. Pain control. Trend inflammatory labs. Admission and Anticipated Discharge Date Admission Date: October 07, 2019 Subjective Patient seen laying in bed, comfortable, reports unchanged symptoms however denies pain at rest, main complaints are with activity. Denies F/C/N/V/SOB/CP. Review of Systems Review of Systems: All systems reviewed & are unremarkable except as noted in HPI & below Constitutional: as per Subjective / HPI Physical Exam Physical Exam: RLE NVSI +EHL/FHL/TA/GS SILT grossly, +2 DP pulse, compartments soft, TTP over tibial tubercle, erythema appears to have improved slightly from prior outline/pen markings on leg. Moderate effusion. Constitutional: WD/WN, vitals as above Results & Data ([place]) Vital Signs (Past 12 Hours) Vital Signs Temp Pulse Pulse Resp BP Pulse Ox 10/11/19 15:41 36.9 C 75 16 122/61 99 10/11/19 11:00 36.6 C 71 18 145/68 H 99 10/11/19 07:30 36.6 C 70 18 145/72 H 99 Laboratory Results 10/11/19 10/11/19 10/10/19 Range/Units 05:58 05:58 16:05 WBC 5.07 (4.8-10.8) K/uL RBC 2.51 L (4.7-6.1) M/uL Hgb 8.3 L (14.0-18.0) g/dL Hct 25.3 L (42-52) % MCV 100.8 H (80-100) fL MCH 33.1 (25-34) pg MCHC 32.8 (32-36) g/dL RDW Std Deviation 55.5 H (36.4-46.3) fL RDW Coeff of Seferino 15.0 H (11.5-14.5) % Plt Count 143 (130-400) K/uL MPV 9.0 (7.4-10.4) fL Immature Gran % (Auto) 0.2 % Neut % (Auto) 63.9 % Lymph % (Auto) 18.3 % [place] % (Auto) 13.8 % Eos % (Auto) 3.0 % Baso % (Auto) 0.8 % Immature Gran # (Auto) 0.01 (0.00-0.02) K/uL Neut # (Auto) 3.24 (1.4-6.5) K/uL Lymph # (Auto) 0.93 L (1.2-3.4) K/uL [place] # (Auto) 0.70 H (0.11-0.59) K/uL Eos # (Auto) 0.15 (0-0.5) K/uL Baso # (Auto) 0.04 (0-0.2) K/uL Sodium 139 (136-145) mmol/L Potassium 5.0 (3.5-5.1) mmol/L Chloride 112 H (98-107) mmol/L Carbon Dioxide 19 L (21-32) mmol/L Anion Gap 8.0 (3-11) BUN 69 H (7-18) mg/dl Creatinine 2.46 H D (0.6-1.4) mg/dl Est Cr Clr Drug Dosing 26.4 ml/min Est GFR ( Amer) 28.4 Est GFR (Non-Af Amer) 24.5 BUN/Creatinine Ratio 28.1 H (10-20) Glucose 80 (70-99) mg/dl Calcium 8.4 L (8.5-10.1) mg/dl Iron 26 L (35-175) mcg/dl Transferrin 161 L (200-360) mg/dl Transferrin % Sat 11 L (20-50) % Total Bilirubin 1.2 H (0.2-1) mg/dl AST 30 (15-37) U/L ALT 30 (12-78) U/L Alkaline Phosphatase 459 H (45-117) U/L Total Protein 6.1 L (6.4-8.2) gm/dl Albumin 2.2 L (3.4-5.0) gm/dl Globulin 3.9 (2.5-4.0) gm/dl Albumin/Globulin Ratio 0.6 L (0.9-2) Blood Type Antibody Screen 10/10/19 10/10/19 Range/Units 16:05 16:05 WBC (4.8-10.8) K/uL RBC (4.7-6.1) M/uL Hgb (14.0-18.0) g/dL Hct (42-52) % MCV (80-100) fL MCH (25-34) pg MCHC (32-36) g/dL RDW Std Deviation (36.4-46.3) fL RDW Coeff of Seferino (11.5-14.5) % Plt Count (130-400) K/uL MPV (7.4-10.4) fL Immature Gran % (Auto) % Neut % (Auto) % Lymph % (Auto) % [place] % (Auto) % Eos % (Auto) % Baso % (Auto) % Immature Gran # (Auto) (0.00-0.02) K/uL Neut # (Auto) (1.4-6.5) K/uL Lymph # (Auto) (1.2-3.4) K/uL [place] # (Auto) (0.11-0.59) K/uL Eos # (Auto) (0-0.5) K/uL Baso # (Auto) (0-0.2) K/uL Sodium 137 (136-145) mmol/L Potassium 5.0 (3.5-5.1) mmol/L Chloride 109 H (98-107) mmol/L Carbon Dioxide 19 L (21-32) mmol/L Anion Gap 9.0 (3-11) BUN 73 H (7-18) mg/dl Creatinine 2.80 H D (0.6-1.4) mg/dl Est Cr Clr Drug Dosing 23.2 ml/min Est GFR ( Amer) 24.3 Est GFR (Non-Af Amer) 21.0 BUN/Creatinine Ratio 26.1 H (10-20) Glucose 88 (70-99) mg/dl Calcium 8.8 (8.5-10.1) mg/dl Iron (35-175) mcg/dl Transferrin (200-360) mg/dl Transferrin % Sat (20-50) % Total Bilirubin (0.2-1) mg/dl AST (15-37) U/L ALT (12-78) U/L Alkaline Phosphatase (45-117) U/L Total Protein (6.4-8.2) gm/dl Albumin (3.4-5.0) gm/dl Globulin (2.5-4.0) gm/dl Albumin/Globulin Ratio (0.9-2) Blood Type O Positive Antibody Screen NEGATIVE (1) Prepatellar bursitis Laterality: right Qualified Code(s): M70.41 - Prepatellar bursitis, right knee
[2019-10-11] MEDS ORDERED: predniSONE 20 MG TAB PO ONE (17:00)
[2019-10-11] MEDS: CYANOCOBALAMIN 500 MCG TABLET (VITAMIN B-12) PO SCH (20:52)
[2019-10-11] MEDS: FOLIC ACID 400 MCG TAB PO SCH (20:52)
[2019-10-11] MEDS: CALCIUM 600MG + VIT D 400 IU TAB PO SCH (20:52)
[2019-10-11] MEDS: CHOLECALCIFEROL 1,000 UNITS 25 MCG TAB PO SCH (20:52)
[2019-10-11] MEDS: FERROUS SULFATE 325 MG TAB PO SCH (20:52)
[2019-10-11] MEDS: ACYCLOVIR 400 MG TAB PO SCH (20:52)
[2019-10-11] MEDS: CEROVITE ADV FORMULA TAB PO SCH (20:52)
[2019-10-11] MEDS: MAGNESIUM OXIDE 400 MG TAB PO SCH (20:53)
[2019-10-11] MEDS: CLOPIDOGREL BISULFATE 75 MG TAB PO SCH (20:53)
[2019-10-11] MEDS: NEPHROCAPS PO SCH (20:53)
--- NOTE | 2019-10-11 21:06 | Hospitalist Progress Note ---
Date of Service October 11, 2019 Assessment & Plan (1) Knee pain, right: thought to be combination of cellulitis, prepatellar bursitis (gout vs pseudogout induced), OA, etc. septic knee is not felt to be present septic bursitis is also not felt to be present continue IV antibiotics for cellulitis spoke with orthopedics - start low-dose prednisone for possibility of gout or pseudogout of bursa and/or knee (2) Prepatellar bursitis: cont cefepime and daptomycin if any element of infection of bursa start prednisone for possible gout or pseudogout of bursa cont pain control appreciate ortho consultation and recs recheck sed rate/crp in am (3) Pseudogout: History of such - see above (4) Macrocytic anemia: b12, folate, TSH all wnl etiology of macrocytosis? (5) Elevated alkaline phosphatase level: cause uncertain liver source vs bone source? consider GGT 25-oh vit D normal in 05/2019 could send isoenzymes to determine if bone vs liver (6) Presence of permanent cardiac pacemaker: placed for history of CHB no issues (7) Afib: cont eliquis cont CCB (8) Diabetic foot ulcer: cont local wound care of right foot (9) Diabetes mellitus type I: cont insulin pump patient with excellent control and knowledge of his pump and T1DM (10) Anemia in CKD (chronic kidney disease): s/p venofer today c/o nephrology appreciate assistance cbc in am for stability (11) Chronic kidney disease, stage 3: creatinine near baseline today (12) DVT prophylaxis: george updated pt's 10/10 needs PT, OT as tolerated Admission and Anticipated Discharge Date Admission Date: October 07, 2019 Subjective patient c/o right knee pain present x 10+ days greatest benefit was from taking advil at home prior to admission no fevers appetite fair at best cannot weight bear on right knee due to pain had some technical difficulties with insulin pump earlier today but got his device working at this point Review of Systems Constitutional: no fever and no chills Respiratory: no cough and no dyspnea Cardiovascular: no chest pain Gastrointestinal: no abdominal pain Physical Exam Constitutional: no acute distress and no altered mental status ENMT: external ear and nose normal, oropharynx normal Respiratory: normal respiratory effort, lungs clear to auscultation Cardiovascular: Rate/Rhythm: regular rate and regular rhythm Heart Sounds: normal S1, normal S2 and + murmur (1/6 systolic) Vessels: + JVD, posterior tibial pulses present and dorsalis pedis pulses present Extremities: no edema Gastrointestinal (Abdomen): normal bowel sounds, soft, nontender, no hepatosplenomegaly Musculoskeletal: right knee: mild joint effusion; no tenderness or warmth with palpation of actual knee joint. prepatellar bursa with swelling, erythema and tenderness to palpation (exquisite); there are demarkation lines around a larger area of mild erythema; erythema extends slightly above superior portion of line Psychiatric: Orientation: alert and oriented x 3 Affect: + flat affect Results & Data Results & Data ([facility]) Vital Signs (Past 12 Hours) Vital Signs Temp Pulse Resp BP Pulse Ox 10/11/19 15:41 36.9 C 75 16 122/61 99 10/11/19 11:00 36.6 C 71 18 145/68 H 99 Laboratory Results Laboratory Results - last 24 hr 10/11/19 10/11/19 05:58 05:58 WBC 5.07 RBC 2.51 L Hgb 8.3 L Hct 25.3 L MCV 100.8 H MCH 33.1 MCHC 32.8 RDW Std Deviation 55.5 H RDW Coeff of Seferino 15.0 H Plt Count 143 MPV 9.0 Immature Gran % (Auto) 0.2 Neut % (Auto) 63.9 Lymph % (Auto) 18.3 [place] % (Auto) 13.8 Eos % (Auto) 3.0 Baso % (Auto) 0.8 Immature Gran # (Auto) 0.01 Neut # (Auto) 3.24 Lymph # (Auto) 0.93 L [place] # (Auto) 0.70 H Eos # (Auto) 0.15 Baso # (Auto) 0.04 Sodium 139 Potassium 5.0 Chloride 112 H Carbon Dioxide 19 L Anion Gap 8.0 BUN 69 H Creatinine 2.46 H D Est Cr Clr Drug Dosing 26.4 Est GFR ( Amer) 28.4 Est GFR (Non-Af Amer) 24.5 BUN/Creatinine Ratio 28.1 H Glucose 80 Calcium 8.4 L Total Bilirubin 1.2 H AST 30 ALT 30 Alkaline Phosphatase 459 H Total Protein 6.1 L Albumin 2.2 L Globulin 3.9 Albumin/Globulin Ratio 0.6 L PG Care Time/CCT Total # of Minutes Spent Total Time Spent with Patient: Total time spent is greater than 50% in coordination of care (as documented) at patient's floor/unit and/or counseling patient: Coding Level of Care Code 93186 Subseq Hosp Care Lvl 3 Diagnoses Knee pain, right M25.561 Chronicity: acute Prepatellar bursitis M70.41 Laterality: right Pseudogout M11.20 Macrocytic anemia D53.9 Elevated alkaline phosphatase level R74.8 Presence of permanent cardiac pacemaker Z95.0 Afib I48.11 Atrial fibrillation type: longstanding persistent Diabetic foot ulcer E11.621; L97.509 Diabetes mellitus type I E10.9 Anemia in CKD (chronic kidney disease) N18.9; D63.1 Chronic kidney disease, stage 3 N18.3 DVT prophylaxis Z29.9 (1) Knee pain, right Chronicity: acute Qualified Code(s): M25.561 - Pain in right knee (2) Prepatellar bursitis Laterality: right Qualified Code(s): M70.41 - Prepatellar bursitis, right knee (3) Afib Atrial fibrillation type: longstanding persistent Qualified Code(s): I48.11 - Longstanding persistent atrial fibrillation
[2019-10-12 06:10] LABS: Basophils # (auto) 0.02 K/uL (0-0.2); Basophils % (auto) 0.4 %; Hematocrit (blood only) 28.5 % (42-52); Hemoglobin 9.3 g/dL (14.0-18.0); Immature Granulocytes # (auto) 0.02 K/uL (0.00-0.02); Immature Granulocytes % (auto) 0.4 %; Lymphocytes % (auto) 7.1 %; Mean Corpuscular Hgb Conc 32.6 g/dL (32-36); Mean Corpuscular Volume 101.1 fL (80-100); Monocytes # (auto) 0.36 K/uL (0.11-0.59); Monocytes % (auto) 6.4 %; Neutrophils # (auto) 4.86 K/uL (1.4-6.5); Neutrophils % (auto) 85.7 %; Platelet Count 153 K/uL (130-400); RDW Standard Deviation 54.9 fL (36.4-46.3); Red Blood Count 2.82 M/uL (4.7-6.1); White Blood Count 5.66 K/uL (4.8-10.8)
[2019-10-12] MEDS: LEVOTHYROXINE SODIUM 112 MCG TABLET PO SCH (06:21)
[2019-10-12 06:34] LABS: Albumin Level 2.3 gm/dl (3.4-5.0); C Reactive Protein 8.5 mg/dl (0-0.29); Calcium 9.3 mg/dl (8.5-10.1); Creatinine Clr Calc Pharmacy 28.7 ml/min; Est GFR (African American) 28.3; Est GFR (Non-African American) 24.4
[2019-10-12 06:39] LABS: Albumin Globulin Ratio 0.5 (0.9-2); Ferritin 282.4 ng/ml (8-388); Globulin 4.6 gm/dl (2.5-4.0); Total Protein 6.9 gm/dl (6.4-8.2)
[2019-10-12] MEDS: ISOSORBIDE MONO EXTENDED REL 60 MG TABCR PO SCH ×2 (08:58→20:26)
[2019-10-12] MEDS: PANTOprazole 40 MG TAB PO SCH (08:58)
[2019-10-12] MEDS: dilTIAZem HCL 30 MG TAB PO SCH ×2 (08:58→20:24)
[2019-10-12] MEDS: APIXABAN 5 MG TABLET PO SCH ×2 (08:58→20:26)
[2019-10-12] MEDS: FEXOFENADINE 60 MG TAB PO SCH (08:58)
[2019-10-12] MEDS: predniSONE 10 MG TABLET PO SCH (09:08)
[2019-10-12] MEDS: CEFEPIME 1,000 MG in SYRINGE 0 ML IV SCH (10:07)
--- NOTE | 2019-10-12 10:39 | Nephrology Progress Note ---
Date of Service October 12, 2019 Assessment & Plan (1) Elrtc-uj-sqousop kidney injury: Creatinine stable. Increased TBW with edema noted. Maintain even to slightly negative fluid balance. Low sodium diet. Non-oliguric. Will monitor I/O's. No diuretics held. Electrolytes acceptable. Started oral NaHCO3 for NAGMA today. Hyperkalemia associated with ROMA. Low K diet ordered. Repeat metabolic profile this afternoon. Medications appropriate for kidney dysfunction. UA: +1 protein (chronic), few RBC's. US: right kidney 9.3 cm, L kidney 7.3 cm. No obstruction. (2) Chronic kidney disease, stage 3: Baseline creatinine 1.9-2.1 mg/dL. Diabetic nephropathy. Follows with Dr. Bridges. (3) Anemia in CKD (chronic kidney disease): Hemoglobin stable. FOBT stable. On anticoagulation. No signs of active bleeding. Chronic history. IV venofer 200 mg x 2nd dose today. Will monitor. (4) Diastolic dysfunction: No evidence of decompensated CHF at this time. (5) Presence of permanent cardiac pacemaker: (6) Afib: Controlled. Anticoagulated. Admission and Anticipated Discharge Date Admission Date: October 07, 2019 Subjective No acute events overnight. No fevers or chills. Improvement in knee pain with steroids. Edema persists. Breathing comfortably. Some palpitations intermittently. Review of Systems Review of Systems: All systems reviewed & are unremarkable except as noted in HPI & below Physical Exam Constitutional: + well hydrated; no acute distress Eyes: + anicteric sclerae ENMT: Mouth: no oral mucosal abnormality and oral mucous membranes not dry Neck: normal visual inspection and trachea midline Respiratory: normal respiratory effort Auscultation: lungs clear to auscultation bilaterally Cardiovascular: Rate/Rhythm: + irregularly irregular Heart Sounds: normal S1, normal S2 and + murmur Vessels: + JVD Extremities: + edema (R>L pitting BL to the knee, LUE noted) Gastrointestinal (Abdomen): Percussion/Palpation: abdomen soft; abdomen nontender Musculoskeletal: Extremities: no cyanosis and no clubbing Knee: + knee abnormal to inspection, + effusion and + ecchymosis Skin: + ecchymosis Neurologic: Motor/Sensory: no tremor and no asterixis Results & Data ([facility]) Vital Signs (Past 12 Hours) Vital Signs Temp Pulse Resp BP Pulse Ox 10/12/19 07:25 36.7 C 73 18 154/75 H 100 10/11/19 23:32 36.8 C 73 18 136/79 97 Laboratory Results Laboratory Results - last 24 hr 10/12/19 10/12/19 10/12/19 05:59 05:59 05:59 WBC 5.66 RBC 2.82 L Hgb 9.3 L Hct 28.5 L MCV 101.1 H MCH 33.0 MCHC 32.6 RDW Std Deviation 54.9 H RDW Coeff of Seferino 15.0 H Plt Count 153 MPV 9.0 Immature Gran % (Auto) 0.4 Neut % (Auto) 85.7 Lymph % (Auto) 7.1 [place] % (Auto) 6.4 Eos % (Auto) 0.0 Baso % (Auto) 0.4 Immature Gran # (Auto) 0.02 Neut # (Auto) 4.86 Lymph # (Auto) 0.40 L [place] # (Auto) 0.36 Eos # (Auto) 0.00 Baso # (Auto) 0.02 ESR 73 H Sodium 138 Potassium 5.0 Chloride 111 H Carbon Dioxide 14 L Anion Gap 13.0 H BUN 72 H Creatinine 2.47 H Est Cr Clr Drug Dosing 28.7 Est GFR ( Amer) 28.3 Est GFR (Non-Af Amer) 24.4 BUN/Creatinine Ratio 29.0 H Glucose 131 H Calcium 9.3 Ferritin 282.4 Total Bilirubin 1.0 AST 31 ALT 29 Alkaline Phosphatase 510 H C-Reactive Protein 8.50 H Total Protein 6.9 Albumin 2.3 L Globulin 4.6 H Albumin/Globulin Ratio 0.5 L PG Care Time/CCT Total # of Minutes Spent Total Time Spent with Patient: Total time spent is greater than 50% in coordination of care (as documented) at patient's floor/unit and/or counseling patient: Coding Level of Care Code 71979 Subseq Hosp Care Lvl 3 Diagnoses Ljren-mu-txlvvmm kidney injury N17.9; N18.9 Chronic kidney disease, stage 3 N18.3 Anemia in CKD (chronic kidney disease) N18.9; D63.1 Diastolic dysfunction I51.89 Presence of permanent cardiac pacemaker Z95.0 Afib I48.11 Atrial fibrillation type: longstanding persistent (1) Afib Atrial fibrillation type: longstanding persistent Qualified Code(s): I48.11 - Longstanding persistent atrial fibrillation
[2019-10-12] MEDS ORDERED: SODIUM BICARBONATE 650 MG TAB PO ONE (11:00)
[2019-10-12 15:27] LABS: BUN Creatinine Ratio 29.7 (10-20); Calcium 9.1 mg/dl (8.5-10.1); Creatinine Clr Calc Pharmacy 26.6 ml/min; Est GFR (African American) 25.7; Est GFR (Non-African American) 22.2; Potassium 4.8 mmol/L (3.5-5.1)
[2019-10-12] MEDS ORDERED: FUROSEMIDE 40 MG in SYRINGE 0 ML IV ONE (18:45)
[2019-10-12] MEDS: DOXYCYCLINE HYCLATE 100 MG CAP PO SCH (20:24)
[2019-10-12] MEDS: NEPHROCAPS PO SCH (20:25)
[2019-10-12] MEDS: CYANOCOBALAMIN 500 MCG TABLET (VITAMIN B-12) PO SCH (20:25)
[2019-10-12] MEDS: ACYCLOVIR 400 MG TAB PO SCH (20:25)
[2019-10-12] MEDS: MAGNESIUM OXIDE 400 MG TAB PO SCH (20:25)
[2019-10-12] MEDS: CLOPIDOGREL BISULFATE 75 MG TAB PO SCH (20:25)
[2019-10-12] MEDS: CHOLECALCIFEROL 1,000 UNITS 25 MCG TAB PO SCH (20:25)
[2019-10-12] MEDS: SODIUM BICARBONATE 650 MG TAB PO SCH (20:25)
[2019-10-12] MEDS: cephALEXin 250 MG CAP PO SCH (20:25)
[2019-10-12] MEDS: CEROVITE ADV FORMULA TAB PO SCH (20:26)
[2019-10-12] MEDS: FOLIC ACID 400 MCG TAB PO SCH (20:26)
[2019-10-12] MEDS: CALCIUM 600MG + VIT D 400 IU TAB PO SCH (20:26)
[2019-10-12] MEDS: FERROUS SULFATE 325 MG TAB PO SCH (20:26)
--- NOTE | 2019-10-12 20:38 | Hospitalist Progress Note ---
Date of Service October 12, 2019 Assessment & Plan (1) Knee pain, right: thought to be combination of cellulitis, prepatellar bursitis (gout vs pseudogout induced), OA, etc. MARKED improvement overnight with single dose of prednisone 20mg suggesting most of the issue is inflammatory arthropathy/bursitis. Cont prednisone - wean to 10mg and leave at this dose for several more days. STOP IV antibiotics - unlikely to have infection as primary issue. Reasonable to treat, however, with 5 more days of PO doxy with keflex then stop all abx. (2) Prepatellar bursitis: marked improvement as noted above likely gout or pseudogout of bursa cont prednisone - 10mg today, then cont this dose for a few more days abx management as above (3) Pseudogout: History of such - see above could have gout - uric acid level >8 a few days ago either way cont prednisone (4) Macrocytic anemia: b12, folate, TSH all wnl etiology of macrocytosis? (5) Elevated alkaline phosphatase level: cause uncertain liver source vs bone source? consider GGT 25-oh vit D normal in 05/2019 could send isoenzymes to determine if bone vs liver would do these tests as outpatient (6) Presence of permanent cardiac pacemaker: placed for history of CHB (7) Afib: cont eliquis cont CCB (8) Diabetic foot ulcer: cont local wound care of right foot (9) Diabetes mellitus type I: cont insulin pump patient with excellent control and knowledge of his pump and T1DM even despite prednisone he is keeping decent control (10) Anemia in CKD (chronic kidney disease): s/p venofer this admission - c/o nephrology appreciate assistance cbc stable (11) Chronic kidney disease, stage 3: with mild associated ROMA Dr Junior following bicarbonate therapy added appreciate nephrology assistance (12) DVT prophylaxis: george updated pt's 10/10 and 10/11 by phone cont PT/OT if right knee continues to feel better his walking should improve and he may be able to return home rather than need inpatient rehab Admission and Anticipated Discharge Date Admission Date: October 07, 2019 Subjective patient's right knee is feeling MUCH better today. when I entered his room he was smiling. he was able to weight bear today for the first time in several days (worked/walked with PT). able to bend more comfortably. eating better. had good bowel movement. pleased w/ this improvement. Review of Systems Constitutional: no fever and no chills Respiratory: no cough and no dyspnea Cardiovascular: no chest pain Physical Exam Constitutional: no acute distress and no altered mental status ENMT: external ear and nose normal, oropharynx normal Respiratory: normal respiratory effort, lungs clear to auscultation Cardiovascular: Rate/Rhythm: regular rate and regular rhythm Heart Sounds: normal S1, normal S2 and + murmur (1/6 systolic) Vessels: + JVD, posterior tibial pulses present and dorsalis pedis pulses present Extremities: + edema (right leg - 1+; trace left) Gastrointestinal (Abdomen): normal bowel sounds, soft, nontender, no hepatosplenomegaly Musculoskeletal: right knee - NO warmth of joint or the prepatellar bursa; NO tenderness with palpation of joint. Scant tenderness with palpation of prepatellar bursa. swelling MUCH improved of the joint itself and the bursa. Previous erythema resolved. Psychiatric: Orientation: alert and oriented x 3 Results & Data Results & Data ([facility]) Vital Signs (Past 12 Hours) Vital Signs Temp Pulse Resp BP Pulse Ox 10/12/19 17:00 36.3 C L 70 18 147/77 H 98 Laboratory Results Laboratory Results - last 24 hr 10/12/19 10/12/19 10/12/19 05:59 05:59 05:59 WBC 5.66 RBC 2.82 L Hgb 9.3 L Hct 28.5 L MCV 101.1 H MCH 33.0 MCHC 32.6 RDW Std Deviation 54.9 H RDW Coeff of Seferino 15.0 H Plt Count 153 MPV 9.0 Immature Gran % (Auto) 0.4 Neut % (Auto) 85.7 Lymph % (Auto) 7.1 Elk % (Auto) 6.4 Eos % (Auto) 0.0 Baso % (Auto) 0.4 Immature Gran # (Auto) 0.02 Neut # (Auto) 4.86 Lymph # (Auto) 0.40 L Elk # (Auto) 0.36 Eos # (Auto) 0.00 Baso # (Auto) 0.02 ESR 73 H Sodium 138 Potassium 5.0 Chloride 111 H Carbon Dioxide 14 L Anion Gap 13.0 H BUN 72 H Creatinine 2.47 H Est Cr Clr Drug Dosing 28.7 Est GFR ( Amer) 28.3 Est GFR (Non-Af Amer) 24.4 BUN/Creatinine Ratio 29.0 H Glucose 131 H Calcium 9.3 Ferritin 282.4 Total Bilirubin 1.0 AST 31 ALT 29 Alkaline Phosphatase 510 H C-Reactive Protein 8.50 H Total Protein 6.9 Albumin 2.3 L Globulin 4.6 H Albumin/Globulin Ratio 0.5 L 10/12/19 14:59 WBC RBC Hgb Hct MCV MCH MCHC RDW Std Deviation RDW Coeff of Seferino Plt Count MPV Immature Gran % (Auto) Neut % (Auto) Lymph % (Auto) Elk % (Auto) Eos % (Auto) Baso % (Auto) Immature Gran # (Auto) Neut # (Auto) Lymph # (Auto) Elk # (Auto) Eos # (Auto) Baso # (Auto) ESR Sodium 138 Potassium 4.8 Chloride 112 H Carbon Dioxide 15 L Anion Gap 11.0 BUN 79 H Creatinine 2.67 H Est Cr Clr Drug Dosing 26.6 Est GFR ( Amer) 25.7 Est GFR (Non-Af Amer) 22.2 BUN/Creatinine Ratio 29.7 H Glucose 223 H Calcium 9.1 Ferritin Total Bilirubin AST ALT Alkaline Phosphatase C-Reactive Protein Total Protein Albumin Globulin Albumin/Globulin Ratio PG Care Time/CCT Total # of Minutes Spent Total Time Spent with Patient: Total time spent is greater than 50% in coordination of care (as documented) at patient's floor/unit and/or counseling patient: Coding Level of Care Code 01216 Subseq Hosp Care Lvl 2 Diagnoses Knee pain, right M25.561 Chronicity: acute Prepatellar bursitis M70.41 Laterality: right Pseudogout M11.20 Macrocytic anemia D53.9 Elevated alkaline phosphatase level R74.8 Presence of permanent cardiac pacemaker Z95.0 Afib I48.11 Atrial fibrillation type: longstanding persistent Diabetic foot ulcer E11.621; L97.509 Diabetes mellitus type I E10.9 Anemia in CKD (chronic kidney disease) N18.9; D63.1 Chronic kidney disease, stage 3 N18.3 DVT prophylaxis Z29.9 (1) Knee pain, right Chronicity: acute Qualified Code(s): M25.561 - Pain in right knee (2) Prepatellar bursitis Laterality: right Qualified Code(s): M70.41 - Prepatellar bursitis, right knee (3) Afib Atrial fibrillation type: longstanding persistent Qualified Code(s): I48.11 - Longstanding persistent atrial fibrillation
[2019-10-13] MEDS: LEVOTHYROXINE SODIUM 112 MCG TABLET PO SCH (06:14)
[2019-10-13 07:18] LABS: BUN Creatinine Ratio 31.2 (10-20); Calcium 8.7 mg/dl (8.5-10.1); Creatinine Clr Calc Pharmacy 29.5 ml/min; Est GFR (African American) 29.4; Est GFR (Non-African American) 25.4; Potassium 4.4 mmol/L (3.5-5.1)
[2019-10-13] MEDS: DOXYCYCLINE HYCLATE 100 MG CAP PO SCH ×2 (09:39→21:01)
[2019-10-13] MEDS: SODIUM BICARBONATE 650 MG TAB PO SCH ×2 (09:39→21:01)
[2019-10-13] MEDS: ISOSORBIDE MONO EXTENDED REL 60 MG TABCR PO SCH ×2 (09:40→21:01)
[2019-10-13] MEDS: dilTIAZem HCL 30 MG TAB PO SCH ×2 (09:40→21:02)
[2019-10-13] MEDS: cephALEXin 250 MG CAP PO SCH ×3 (09:40→21:01)
[2019-10-13] MEDS: FEXOFENADINE 60 MG TAB PO SCH (09:41)
[2019-10-13] MEDS: predniSONE 10 MG TABLET PO SCH (09:41)
[2019-10-13] MEDS: APIXABAN 5 MG TABLET PO SCH ×2 (09:41→21:01)
[2019-10-13] MEDS: PANTOprazole 40 MG TAB PO SCH (09:42)
[2019-10-13] MEDS: ACETAMINOPHEN 325 MG TAB PO PRN (09:56)
[2019-10-13] MEDS: TRAMADOL HCL 50 MG TABLET PO PRN (09:56)
--- NOTE | 2019-10-13 10:37 | Nephrology Progress Note ---
Date of Service October 13, 2019 Assessment & Plan (1) [id number] kidney injury: Creatinine stable. Improved TBW with some persistent edema noted. Goal is to continue to maintain a slightly negative fluid balance. Low sodium diet. Non- oliguric. Will monitor I/O's. Furosemide 40 mg provided yesterday. Additional diuretic held today pending monitoring. Electrolytes acceptable. Continue oral NaHCO3 for NAGMA. Low K diet. Repeat metabolic profile tomorrow AM. Medications appropriate for kidney dysfunction. UA: +1 protein (chronic), few RBC's. US: right kidney 9.3 cm, L kidney 7.3 cm. No obstruction. (2) Chronic kidney disease, stage 3: Baseline creatinine 1.9-2.1 mg/dL. Diabetic nephropathy. Follows with Dr. Bridgse. (3) Anemia in CKD (chronic kidney disease): Hemoglobin stable. FOBT stable. On anticoagulation. No signs of active bleeding. Chronic history. IV venofer 200 mg x 3nd dose today. Will monitor. (4) Diastolic dysfunction: No evidence of decompensated CHF at this time. (5) Presence of permanent cardiac pacemaker: (6) Afib: Controlled. Anticoagulated. Admission and Anticipated Discharge Date Admission Date: October 07, 2019 Subjective No acute events overnight. Excellent urine output in response to IV furosemide yesterday. Breathing comfortably. Edema improved. Able to bear weight. Hopeful to be discharged home before the weekend. No fevers or chills. Pain control remains acceptable. Review of Systems Review of Systems: All systems reviewed & are unremarkable except as noted in HPI & below Physical Exam Constitutional: + well hydrated; no acute distress Eyes: + anicteric sclerae ENMT: Mouth: no oral mucosal abnormality and oral mucous membranes not dry Neck: normal visual inspection and trachea midline Respiratory: normal respiratory effort Auscultation: lungs clear to auscultation bilaterally Cardiovascular: Rate/Rhythm: + irregularly irregular Heart Sounds: normal S1, normal S2 and + murmur Vessels: + JVD Extremities: + edema (R>L pitting BL to the knee, LUE noted) Gastrointestinal (Abdomen): Percussion/Palpation: abdomen soft; abdomen nontender Musculoskeletal: Extremities: no cyanosis and no clubbing Knee: + knee abnormal to inspection, + effusion and + ecchymosis Skin: + ecchymosis Neurologic: Motor/Sensory: no tremor and no asterixis Results & Data ([facility]) Vital Signs (Past 12 Hours) Vital Signs Temp Pulse Resp BP Pulse Ox 10/13/19 07:32 36.5 C 67 18 151/78 H 97 10/12/19 22:53 36.3 C L 68 16 160/78 H 98 Laboratory Results Laboratory Results - last 24 hr 10/12/19 10/13/19 14:59 06:10 Sodium 138 140 Potassium 4.8 4.4 Chloride 112 H 114 H Carbon Dioxide 15 L 18 L Anion Gap 11.0 8.0 BUN 79 H 75 H Creatinine 2.67 H 2.39 H Est Cr Clr Drug Dosing 26.6 29.5 Est GFR ( Amer) 25.7 29.4 Est GFR (Non-Af Amer) 22.2 25.4 BUN/Creatinine Ratio 29.7 H 31.2 H Glucose 223 H 106 H Calcium 9.1 8.7 PG Care Time/CCT Total # of Minutes Spent Total Time Spent with Patient: Total time spent is greater than 50% in coordination of care (as documented) at patient's floor/unit and/or counseling patient: Coding Level of Care Code 59821 Subseq Hosp Care Lvl 3 Diagnoses [id number] kidney injury N17.9; N18.9 Chronic kidney disease, stage 3 N18.3 Anemia in CKD (chronic kidney disease) N18.9; D63.1 Diastolic dysfunction I51.89 Presence of permanent cardiac pacemaker Z95.0 Afib I48.11 Atrial fibrillation type: longstanding persistent (1) Afib Atrial fibrillation type: longstanding persistent Qualified Code(s): I48.11 - Longstanding persistent atrial fibrillation
[2019-10-13] MEDS ORDERED: IRON SUCROSE 200 MG in 0.9 % SODIUM CHLORIDE 100 ML IV SCH (10:45)
--- NOTE | 2019-10-13 14:01 | Orthopedic Progress Note ---
Date of Service October 13, 2019 Assessment & Plan (1) Knee pain, right: Continue current course of prednisone. I discussed with Dr. Goff that he was planning on continuing the prednisone for a week. Patient can be up as tolerated weightbearing as tolerated on the right lower extremity. We will plan on having the patient see Dr. Menchaca or Dr. Verduzco back in the office for a follow-up in 1 week. Admission and Anticipated Discharge Date Admission Date: October 07, 2019 Subjective I was asked to see the patient for a brief recheck today by Dr. Goff. The patient is currently sitting up in bed awake and alert. He states he has had a good response to the area on his right knee with the addition of prednisone. He states he is able to do more now and has been able to get up around the room a lot better. He states he still has pain with it but is not problematic with weightbearing. He is hoping to go home soon but knows this would be dependent on his blood sugars and kidney function as well. Physical Exam Physical Exam: The area in question over the distal lateral knee near the prepatellar bursa is almost devoid of any erythema. The area that was marked is still present and is somewhat tender on palpation. I can take him through gentle range of motion of the knee without causing any pain in the knee itself but does have a little bit of discomfort in the initial area described. He appears to have a little bit more of an effusion than previous but the effusion is not tense and he has no pain is noted with the range of motion. No pain in the knee joint itself with weightbearing. Results & Data ([facility]) Vital Signs (Past 12 Hours) Vital Signs Temp Pulse Resp BP Pulse Ox 10/13/19 12:54 37.1 C 70 126/67 98 10/13/19 12:16 36.7 C 69 129/73 98 10/13/19 07:32 36.5 C 67 18 151/78 H 97 (1) Knee pain, right Chronicity: acute Qualified Code(s): M25.561 - Pain in right knee
[2019-10-13] MEDS: DICLOFENAC SOD 1% GEL 100 GM TUBE EXT SCH ×3 (14:12→21:02)
--- NOTE | 2019-10-13 18:28 | Hospitalist Progress Note ---
Date of Service October 13, 2019 Assessment & Plan (1) Knee pain, right: Likely combination of gout or pseudogout of knee, OA, and prepatellar bursitis. Latter likely gout or pseudogout in nature as well. There was concern of cellulitis of the region earlier this admission but this appears resolved. Cont prednisone 10mg daily for about 1 week. Add voltaren gel 4gm QID to the knee joint (will avoid the prepatellar bursa). Cont doxy/keflex if there was cellulitis. (2) Prepatellar bursitis: marked improvement with prednisone over the last 3 days likely gout or pseudogout of bursa cont prednisone - 10mg daily for about 1 week (3) Pseudogout: History of such - see above knee x-rays with CPPD changes could have gout as well - uric acid level >8 a few days ago [address] way cont prednisone add voltaren gel to right knee qid for additional anti-inflammatory (4) Macrocytic anemia: b12, folate, TSH all wnl H/H, however, remain acceptable (5) Elevated alkaline phosphatase level: cause uncertain liver source vs bone source? consider GGT 25-oh vit D normal in 05/2019 could send isoenzymes to determine if bone vs liver would do these tests as outpatient (6) Presence of permanent cardiac pacemaker: placed for history of CHB (7) Afib: cont eliquis cont CCB (8) Diabetic foot ulcer: cont local wound care of right foot (9) Diabetes mellitus type I: cont insulin pump acceptable control patient is managing his own pump (10) Anemia in CKD (chronic kidney disease): s/p venofer - managed by nephrology appreciate assistance cbc stable (11) Chronic kidney disease, stage 3: with mild associated ROMA ROMA improving Dr Junior following bicarbonate therapy added appreciate nephrology assistance (12) DVT prophylaxis: george updated pt's 10/10, 10/11 and 10/12 cont PT/OT if right knee continues to feel better his walking should improve and he may be able to return home rather than need inpatient rehab re-eval daily Admission and Anticipated Discharge Date Admission Date: October 07, 2019 Subjective patient spent about 20-30 min in the bathroom this am performing ADLs/grooming then spent 2 hours in the chair did some walking in the room afterwards was worn out and had more swelling with a bit more pain following the above activities he is eating well no fevers no new complaints Review of Systems Constitutional: no fever, no chills and no anorexia Respiratory: no cough and no dyspnea Cardiovascular: no chest pain Gastrointestinal: no abdominal pain, no nausea and no vomiting Physical Exam Constitutional: no acute distress and no altered mental status ENMT: external ear and nose normal, oropharynx normal Respiratory: normal respiratory effort, lungs clear to auscultation Cardiovascular: Rate/Rhythm: regular rate and regular rhythm Heart Sounds: normal S1, normal S2 and + murmur (1/6 systolic) Vessels: posterior tibial pulses present and dorsalis pedis pulses present; no JVD Extremities: + edema (right leg - 1+; trace left) Gastrointestinal (Abdomen): normal bowel sounds, soft, nontender, no hepatosplenomegaly Musculoskeletal: mild joint effusion, right knee; minimal warmth; no erythema; mild tenderness with passive ROM but most of the pain is over the prepatellar bursal region with ROM. The prepatellar bursa has minimal swelling. Minimal tenderness to palpation. Minimal warmth over the bursa. No overlying cellulitis. No abscess. No erythema over the bursa. Psychiatric: Orientation: alert and oriented x 3 Results & Data Results & Data ([facility]) Vital Signs (Past 12 Hours) Vital Signs Temp Pulse Resp BP Pulse Ox 10/13/19 15:13 36.6 C 70 16 142/62 H 99 10/13/19 12:54 37.1 C 70 126/67 98 10/13/19 12:16 36.7 C 69 129/73 98 10/13/19 07:32 36.5 C 67 18 151/78 H 97 Laboratory Results Laboratory Results - last 24 hr 10/13/19 06:10 Sodium 140 Potassium 4.4 Chloride 114 H Carbon Dioxide 18 L Anion Gap 8.0 BUN 75 H Creatinine 2.39 H Est Cr Clr Drug Dosing 29.5 Est GFR ( Amer) 29.4 Est GFR (Non-Af Amer) 25.4 BUN/Creatinine Ratio 31.2 H Glucose 106 H Calcium 8.7 PG Care Time/CCT Total # of Minutes Spent Total Time Spent with Patient: Total time spent is greater than 50% in coordination of care (as documented) at patient's floor/unit and/or counseling patient: Coding Level of Care Code 14498 Subseq Hosp Care Lvl 2 Diagnoses Knee pain, right M25.561 Chronicity: acute Prepatellar bursitis M70.41 Laterality: right Pseudogout M11.20 Macrocytic anemia D53.9 Elevated alkaline phosphatase level R74.8 Presence of permanent cardiac pacemaker Z95.0 Afib I48.11 Atrial fibrillation type: longstanding persistent Diabetic foot ulcer E11.621; L97.509 Diabetes mellitus type I E10.9 Anemia in CKD (chronic kidney disease) N18.9; D63.1 Chronic kidney disease, stage 3 N18.3 DVT prophylaxis Z29.9 (1) Knee pain, right Chronicity: acute Qualified Code(s): M25.561 - Pain in right knee (2) Prepatellar bursitis Laterality: right Qualified Code(s): M70.41 - Prepatellar bursitis, right knee (3) Afib Atrial fibrillation type: longstanding persistent Qualified Code(s): I48.11 - Longstanding persistent atrial fibrillation
[2019-10-13] MEDS: CLOPIDOGREL BISULFATE 75 MG TAB PO SCH (21:01)
[2019-10-13] MEDS: FERROUS SULFATE 325 MG TAB PO SCH (21:01)
[2019-10-13] MEDS: FOLIC ACID 400 MCG TAB PO SCH (21:01)
[2019-10-13] MEDS: ACYCLOVIR 400 MG TAB PO SCH (21:01)
[2019-10-13] MEDS: CALCIUM 600MG + VIT D 400 IU TAB PO SCH (21:01)
[2019-10-13] MEDS: CHOLECALCIFEROL 1,000 UNITS 25 MCG TAB PO SCH (21:01)
[2019-10-13] MEDS: CEROVITE ADV FORMULA TAB PO SCH (21:01)
[2019-10-13] MEDS: MAGNESIUM OXIDE 400 MG TAB PO SCH (21:02)
[2019-10-13] MEDS: CYANOCOBALAMIN 500 MCG TABLET (VITAMIN B-12) PO SCH (21:02)
[2019-10-13] MEDS: NEPHROCAPS PO SCH (21:02)
[2019-10-14] MEDS: LEVOTHYROXINE SODIUM 112 MCG TABLET PO SCH (05:38)
[2019-10-14 06:44] LABS: Hematocrit (blood only) 26.4 % (42-52); Mean Corpuscular Hemoglobin 34.2 pg (25-34); Mean Corpuscular Hgb Conc 34.1 g/dL (32-36); Mean Corpuscular Volume 100.4 fL (80-100); Mean Platelet Volume 9.3 fL (7.4-10.4); Platelet Count 172 K/uL (130-400); RDW Coefficient of Variation 15.6 % (11.5-14.5); RDW Standard Deviation 56.1 fL (36.4-46.3); Red Blood Count 2.63 M/uL (4.7-6.1); White Blood Count 6.03 K/uL (4.8-10.8)
[2019-10-14 07:05] LABS: Albumin Level 2.3 gm/dl (3.4-5.0); BUN Creatinine Ratio 32.5 (10-20); Creatinine Clr Calc Pharmacy 30.6 ml/min; Est GFR (African American) 30.7; Est GFR (Non-African American) 26.5; Phosphorus 3.6 mg/dl (2.5-4.9); Potassium 4.6 mmol/L (3.5-5.1)
[2019-10-14] MEDS: predniSONE 10 MG TABLET PO SCH (08:23)
[2019-10-14] MEDS: APIXABAN 5 MG TABLET PO SCH (08:23)
[2019-10-14] MEDS: dilTIAZem HCL 30 MG TAB PO SCH (08:24)
[2019-10-14] MEDS: SODIUM BICARBONATE 650 MG TAB PO SCH (08:24)
[2019-10-14] MEDS: PANTOprazole 40 MG TAB PO SCH (08:24)
[2019-10-14] MEDS: cephALEXin 250 MG CAP PO SCH (08:24)
[2019-10-14] MEDS: ISOSORBIDE MONO EXTENDED REL 60 MG TABCR PO SCH (08:24)
[2019-10-14] MEDS: DICLOFENAC SOD 1% GEL 100 GM TUBE EXT SCH (08:25)
[2019-10-14] MEDS: DOXYCYCLINE HYCLATE 100 MG CAP PO SCH (08:25)
[2019-10-14] MEDS: FEXOFENADINE 60 MG TAB PO SCH (08:25)
[2019-10-14] MEDS ORDERED: FUROSEMIDE 40 MG TAB PO SCH (09:00)
[2019-10-14] MEDS ORDERED: IRON SUCROSE 200 MG in 0.9 % SODIUM CHLORIDE 100 ML IV ONE (09:30)
--- NOTE | 2019-10-14 09:43 | Nephrology Progress Note ---
Date of Service October 14, 2019 Assessment & Plan (1) Urabo-kc-cvqseig kidney injury: Creatinine stable. Goal is to continue to maintain a slightly negative fluid balance. Furosemide 40 mg PO ordered for this morning. I would suggest 20 mg PO daily at discharge with close outpatient follow up in the nephrology clinic. Mr. Blake can add additional doses as needed for edema. Low sodium diet. Continue oral NaHCO3 1300 mg BID. Repeat metabolic profile on Friday or Friday (results can be faxed to [phone]). Follow up with Dr. Bridges in the nephrology clinic within 2 weeks of hospital discharge. Strict avoidance of NSAIDS at this time. (2) Chronic kidney disease, stage 3: Baseline creatinine 1.9-2.1 mg/dL. Diabetic nephropathy. (3) Anemia in CKD (chronic kidney disease): Hemoglobin stable. FOBT positive. On anticoagulation. No signs of active bleeding. Chronic history. IV venofer 200 mg x 4th dose today. (4) Diastolic dysfunction: No evidence of decompensated CHF at this time. Furosemide as Rx'd. (5) Presence of permanent cardiac pacemaker: (6) Afib: Controlled. Anticoagulated. Admission and Anticipated Discharge Date Admission Date: October 07, 2019 Subjective No acute events overnight. Mr. Blake would like to go home today. He was out of bed with PT when I saw him this morning. The patient feels well. No dyspnea. No fevers or chills. Appetite good. Urine output appropriate. Pain reasonably controlled. Review of Systems Review of Systems: All systems reviewed & are unremarkable except as noted in HPI & below Physical Exam Physical Exam: Deferred due to COVID 19 pandemic. Results & Data ([facility]) Vital Signs (Past 12 Hours) Vital Signs Temp Pulse Pulse Resp BP BP Pulse Ox 10/14/19 07:32 36.4 C L 69 16 146/73 H 98 10/14/19 05:42 36.4 C L 71 132/76 10/13/19 23:08 36.5 C 70 15 160/77 H 100 Laboratory Results Laboratory Results - last 24 hr 10/14/19 10/14/19 06:06 06:06 WBC 6.03 RBC 2.63 L Hgb 9.0 L Hct 26.4 L MCV 100.4 H MCH 34.2 H MCHC 34.1 RDW Std Deviation 56.1 H RDW Coeff of Seferino 15.6 H Plt Count 172 MPV 9.3 Sodium 139 Potassium 4.6 Chloride 112 H Carbon Dioxide 18 L Anion Gap 9.0 BUN 75 H Creatinine 2.31 H Est Cr Clr Drug Dosing 30.6 Est GFR ( Amer) 30.7 Est GFR (Non-Af Amer) 26.5 BUN/Creatinine Ratio 32.5 H Glucose 106 H Calcium 9.0 Phosphorus 3.6 AST 45 H ALT 37 Albumin 2.3 L PG Care Time/CCT Total # of Minutes Spent Total Time Spent with Patient: Total time spent is greater than 50% in coordination of care (as documented) at patient's floor/unit and/or counseling patient: Coding Level of Care Code 25337 Subseq Hosp Care Lvl 3 Diagnoses Wbjtj-kf-hzonbjj kidney injury N17.9; N18.9 Chronic kidney disease, stage 3 N18.3 Anemia in CKD (chronic kidney disease) N18.9; D63.1 Diastolic dysfunction I51.89 Presence of permanent cardiac pacemaker Z95.0 Afib I48.11 Atrial fibrillation type: longstanding persistent (1) Afib Atrial fibrillation type: longstanding persistent Qualified Code(s): I48.11 - Longstanding persistent atrial fibrillation
--- NOTE | 2019-10-14 10:00 | Discharge Summary ---
Date of Service date of admission - October 07, 2019 date of discharge - October 14, 2019 Admission HPI Per Admitting Provider Talon Blake is a 74 year old male with atrial fibrillation, pacemaker 2/2 complete heart block, T1DM, diabetic foot ulcers, Hx GI bleed who is a direct admission from the wound care clinic due to concerns of cellulitis with failed outpatient therapy. The patient notes acute onset of right leg swelling that started on Friday. His leg does swell periodically secondary to poor venous drainage from prior greater saphenous vein harvest for his CABG but this was much more than previous. He then started to have right knee pain with erythema over the front of the knee. He saw his orthopedic surgeon Dr Verduzco on FridayOctober 03 and as per patient recollection and ER notes (ortho note not available at time of admission) he was told he had cellulitis and was sent to the ER. The erythema described in that note is similar to what is present today over just his patellar tendon. He was given a dose of ceftriaxone and discharged with doxycycline and keflex for follow up in wound care clinic. US doppler for DVT was performed which was negative. No change to his erythema was noticed during these three days therefore he was referred to the hospitalist group for admis mildred with cellulitis with failed outpatient therapy. The patient currently notes the pain is the worst it has been. Although he knows he shouldn't be taking ibuprofen this has given him significant relief. Principal Diagnosis right knee and right prepatellar bursa pseudogout vs gout Discharge Exam Constitutional no acute distress and no altered mental status ENMT external ear and nose normal, oropharynx normal Respiratory normal respiratory effort, lungs clear to auscultation Cardiovascular Rate/Rhythm: regular rate and regular rhythm Heart Sounds: normal S1, normal S2 and + murmur (1/6 systolic) Vessels: posterior tibial pulses present and dorsalis pedis pulses present; no JVD Extremities: + edema (right leg - 1+; trace left) Gastrointestinal (Abdomen) normal bowel sounds, soft, nontender, no hepatosplenomegaly Musculoskeletal right knee: mild effusion; scant warmth; no erythema; passive ROM of right knee intact. right prepatellar bursa - scant swelling; no erythema; no warmth; scant tenderness to palpation. NO overlying erythema of knee or leg to suggest cellulitis. Skin right foot - heel - diabetic foot ulcer, clean-based, no purulence or odor; skin at periphery mildly devitalized Psychiatric Orientation: alert and oriented x 3 Discharge Data Allergies Allergy/AdvReac Type Severity Reaction Status Date / Time No Known Allergies Allergy Verified 10/07/19 14:13 Consultations [facility] Nephrology - Dr Nick Junior PT, OT Ordered Studies US extremity non-vascular - right knee - small joint effusion. US duplex aorta/iliacs/IVC - no evidence of pelvic vein DVT. US renal/blad retro - no hydronephrosis. right knee x-rays - CPPD changes. Osteoarthritis, mod-severe. Small-moderate joint effusion. Hospital Course (1) Knee pain, right: Likely combination of gout or pseudogout of knee, OA, and prepatellar bursitis. Latter likely gout or pseudogout in nature as well. There was concern of cellulitis of the region earlier in the admission but this resolved prior to discharge and his most significant relief of knee pain/swelling/erythema came with taking prednisone. This would argue the larger player was inflammatory arthropathy and inflammatory bursitis. In fact once he started taking prednisone while hospitalized he was able to weight-bear, ambulate, and place the right knee through range of motion. He will take prednisone 10mg daily for 5 days post-discharge. He will take 7 days of doxycycline and keflex if there was indeed cellulitis of this area. He can use voltaren gel qid to the knee joint (he will avoid the prepatellar bursa) on a prn basis. (2) Prepatellar bursitis: Patient was seen by [facility] and it was felt that he had prepatellar bursitis. Ultimately it became more clear that the bursitis was either gouty or pseudogout in origin. He had marked improvement with prednisone over the remaining 3 days of his hospital stay. Again he will take 5 more days of prednisone at home. It was NOT felt that the patient had septic bursitis. He did not require any I & D of the bursa. (3) Pseudogout: Right knee x-rays with CPPD changes. He reported having had pseudogout flares in the past. In addition the patient's uric acid level was >8 during the hospitalization. As mentioned above it was felt he had gout vs pseudogout of the right knee joint as well as the right prepatellar bursa. He improved with prednisone and voltaren gel prn. (4) Macrocytic anemia: b12, folate, TSH all wnl H/H, however, remained acceptable while hospitalized discharge Hemoglobin was 9 (5) Elevated alkaline phosphatase level: cause uncertain liver source vs bone source? consider GGT 25-oh vit D normal in 05/2019 could send isoenzymes to determine if bone vs liver would do these tests as outpatient (6) Presence of permanent cardiac pacemaker: placed for history of complete heart block no issues while here (7) Afib: cont eliquis cont diltiazem (8) Diabetic foot ulcer: cont local wound care of right foot (heel) with aquacel silver covered with optifoam dressing he will need follow-up with the wound care center for ongoing surveillance, debridement, etc. (9) Diabetes mellitus type I: Patient has excellent control with use of his insulin pump. He managed his DM the entire stay with superb fingerstick blood sugars even while on prednisone. (10) Anemia in CKD (chronic kidney disease): s/p venofer this admission - managed by nephrology (11) Chronic kidney disease, stage 3: with mild associated ROMA during the visit, possibly due to motrin use pre- hospitalization. ROMA improving prior to discharge. Dr Nick Junior from [facility] nephrology provided gramajo recommendations for his kidney care. Bicarbonate therapy was added and he will take twice daily sodium bicarbonate at home. Discharge creatinine was 2.3. He will take lasix 20mg daily on a PRN basis for edema and/or weight gain. He should follow-up with Dr Junior or his PCP to continue monitoring his renal function. (12) Chronic venous insufficiency: (13) Acute kidney injury: peak Cr was 2.8 discharge Cr was 2.3 (14) Coronary artery disease: cont statin, plavix, nitrates no ischemic symptoms while here Total Time Total Time Spent Total Time Spent (In Minutes): 40 Total Time Includes: Examination of the Patient, Discharge Planning, Medication Reconciliation and Communication With Other Providers Discharge Plan Discharge Items Patient Disposition: Home - Home Health Services Reason For Visit: DIABETIC FOOT ULCER Discharge Diagnosis: 1. gout or pseudogout of the right knee 2. gout or pseudogout of the right prepatellar bursa 3. possible cellulitis (skin infection) over the right lower knee 4. diabetic foot ulcer, right heel 5. chronic kidney disease Activity: Resume your previous activity Non-emergency contact: Primary Care Provider, Surgeon and Specialist Call non-emergency contact if: you have any medication questions, your symptoms worsen, your pain is not controlled, your pain is worsening, your pain is unusual for you, your pain is concerning for you, you have a fever, your wound has increased redness, your wound has increased drainage and your wound pain has increased Follow-up/Referrals: Ez Verduzco MD [Surgeon] - 10/21/19 9:00 am () Guanaco Esteban MD [Primary Care Provider] - 10/22/19 2:40 pm (follow-up 1 week ) Maxx Hall DO [Physician] - (f/u within 1 week for right heel ulcer) Diet: Carb Count or DM1 and Low Potassium (2gm) Fluids: 1800ml (7 cups) Addtl Attending Provider Instructions: You were treated for the above problems listed in "discharge diagnoses." [facility] saw you for your right knee pain and swelling. Ultimately you made the most improvement once prednisone was started. This would suggest that the right knee pain was due to either pseudogout or gout. It appears you had pseudogout or gout in not only the knee but also the bursa just below the knee (in the middle of the mechoopda drawn on your leg). There was some concern as well about skin infection of this region. Your wounds on your feet were dressed as usual and these remain stable. Dr Junior from nephrology was involved for your kidneys and swelling. Recommendations - 1. take prednisone 10mg once daily for 5 more days; start tomorrow, 10/15/19. Know that the prednisone will cause blood sugar elevations and swelling/edema. 2. take the following antibiotics for 7 days each; start these today. * cephalexin 250mg three times a day * doxycycline 100mg twice a day * know that doxycycline can cause heartburn and can cause a rash if you go out in the sun; so - cover up in the sun for the next week 3. for your swelling/edema - * take lasix (furosemide) 20mg every morning NEEDED for swelling/edema or weight gain 4. for your kidneys - * take sodium bicarbonate 1300mg twice a day every day 5. continue your dressing changes on the right heel and bottom of left foot as previously instructed by the Wound Care Center 6. check your weights daily at home; report weight gains of more than 2-3 pounds in 1-2 days to your family doctor 7. 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 Range of motion of the right knee as tolerated. Keep the leg elevated when at rest. Ice to the right knee as needed. Follow-up with Dr. Verduzco at [facility] in 1 week. [phone] Pending Studies at Discharge: No Stand-Alone Forms: [facility], Smoking Cessation Medications and DC Order Prescriptions: New cephalexin 250 mg Capsule 250 mg PO TID 7 Days Qty: 21 RF: 0 sodium bicarbonate 650 mg Tablet 1,300 mg PO BID Qty: 120 RF: 5 diclofenac sodium [Voltaren] 1 % Gel 4 g EXT QID Qty: 1 RF: 0 Continued cholecalciferol (vitamin D3) 2,000 unit capsule 2,000 units PO HS RF: 0 cyanocobalamin (vitamin B-12) 1,000 mcg capsule 1,000 mcg PO HS RF: 0 magnesium oxide 400 mg capsule 400 mg PO HS RF: 0 insulin lispro [Humalog U-100 Insulin] 100 unit/mL solution 100 units SQ .COMPLEX Qty: 9 RF: 3 levothyroxine 112 mcg tablet 112 mcg PO QAM Qty: 90 RF: 3 (DME) Dexcom G5 Transmitter device See Dose Instructions .ROUTE .MEDSUPPLY Qty: 1 RF: 0 Eliquis 5 mg tablet 5 mg PO BID RF: 0 nitroglycerin 0.4 mg tablet, sublingual 0.4 mg SL Q5M PRN (Reason: chest pain) Qty: 60 RF: 3 folic acid 800 mcg tablet 800 mcg PO HS RF: 0 acyclovir 400 mg tablet 400 mg PO HS RF: 0 calcium carb and citrate-vitD3 [Citracal-D3 Slow Release] 600 mg calcium- 500 unit Tablet Extended Release 1 tab PO HS RF: 0 clopidogrel 75 mg tablet 75 mg PO HS RF: 0 pantoprazole 40 mg tablet,delayed release (DR/EC) 40 mg PO QAM RF: 0 Renal Caps 1 mg capsule 1 cap PO HS RF: 0 furosemide 20 mg tablet 20 mg PO DAILY PRN (Reason: Weight Gain) Qty: 30 RF: 0 PreserVision AREDS-2 [id number] bf-[id number]-mg Capsule 1 tab PO BID RF: 0 atorvastatin 80 mg Tablet 80 mg PO HS RF: 0 isosorbide mononitrate 60 mg tablet extended release 24 hr 60 mg PO BID RF: 0 ferrous sulfate 325 mg (65 mg iron) tablet,delayed release (DR/EC) 325 mg PO HS RF: 0 diltiazem HCl 30 mg tablet 7.5 mg PO BID RF: 0 Discontinued ibuprofen [Advil] 200 mg Tablet 200 mg PO Q6H PRN (Reason: Pain) RF: 0 cephalexin 500 mg capsule 500 mg PO Q12H 7 Days Qty: 14 RF: 0 doxycycline hyclate 100 mg capsule 100 mg PO BID 7 Days Qty: 14 RF: 0 Discharge Orders: Discharge Order (Routine); Ordered 10/14/19 Ordered By: Den Goff Admission Data Admit Date/Time: 10/07/19 15:52 Attending Provider: Den Goff Admit Provider: Den Burch Primary Care Provider: Guanaco Esteban Other Providers: Garret Vazquez Kevin C. Other Interventions: Discharge Summary Assessment (RN) Last Done: 10/14/19 10:32 DC Date/Time DO NOT enter until pt leaves facility: 10/14/19 11:35 Coding Level of Care Code D/C Day Management >30 mins Diagnoses Knee pain, right M25.561 Chronicity: acute Prepatellar bursitis M70.41 Laterality: right Pseudogout M11.20 Macrocytic anemia D53.9 Elevated alkaline phosphatase level R74.8 Presence of permanent cardiac pacemaker Z95.0 Afib I48.11 Atrial fibrillation type: longstanding persistent Diabetic foot ulcer E11.621; L97.509 Diabetes mellitus type I E10.9 Anemia in CKD (chronic kidney disease) N18.9; D63.1 Chronic kidney disease, stage 3 N18.3 Chronic venous insufficiency I87.2 Acute kidney injury N17.9 Coronary artery disease I25.10
== END 2019-10-14 11:35 | disposition home health service (06) | DRG 558 ==
LOC: SUATTDRO 15:52 → 3E 15:52

== ENCOUNTER 2019-11-05 16:33 | Inpatient (IN) ==
[2019-11-05] MEDS ORDERED: PIPERACILLIN/TAZOBACTAM 4.5 GM/120 ML BAG IV ONE (16:42)
[2019-11-05 17:13] LABS: Basophils # (auto) 0.03 K/uL (0-0.2); Basophils % (auto) 0.5 %; Eosinophils # (auto) 0.17 K/uL (0-0.5); Eosinophils % (auto) 2.8 %; Hematocrit (blood only) 32.1 % (42-52); Hemoglobin 10.2 g/dL (14.0-18.0); Immature Granulocytes # (auto) 0.03 K/uL (0.00-0.02); Immature Granulocytes % (auto) 0.5 %; Lymphocytes # (auto) 0.71 K/uL (1.2-3.4); Lymphocytes % (auto) 11.6 %; Mean Corpuscular Hemoglobin 34.5 pg (25-34); Mean Corpuscular Hgb Conc 31.8 g/dL (32-36); Mean Corpuscular Volume 108.4 fL (80-100); Mean Platelet Volume 9.6 fL (7.4-10.4); Monocytes # (auto) 0.82 K/uL (0.11-0.59); Monocytes % (auto) 13.4 %; Neutrophils # (auto) 4.37 K/uL (1.4-6.5); Neutrophils % (auto) 71.2 %; Platelet Count 139 K/uL (130-400); RDW Coefficient of Variation 17.4 % (11.5-14.5); RDW Standard Deviation 69.5 fL (36.4-46.3); Red Blood Count 2.96 M/uL (4.7-6.1); White Blood Count 6.13 K/uL (4.8-10.8)
[2019-11-05] MEDS ORDERED: VANCOMYCIN HCL 1,750 MG in SODIUM CHLORIDE 0.9% 500 ML IV ONE (17:16)
[2019-11-05 17:34] LABS: BUN Creatinine Ratio 24.3 (10-20); Blood Urea Nitrogen 57 mg/dl (7-18); Calcium 8.6 mg/dl (8.5-10.1); Carbon Dioxide 22 mmol/L (21-32); Chloride 112 mmol/L (98-107); Est GFR (Non-African American) 25.9; Glucose 120 mg/dl (70-99); Potassium 5.9 mmol/L (3.5-5.1); Sodium 141 mmol/L (136-145)
--- NOTE | 2019-11-05 17:40 | Emergency Department Note ---
History of Present Illness General Chief complaint: Infection Stated complaint: INFECTION IN FOOT Time Seen by Provider: 11/05/19 16:40 History of Present Illness Provider complaint: Right foot infection Location: foot and right Severity: mild Maximum Pain Intensity: 3 74-year-old male presents emergency department for right foot infection. Patient states he was told to come to the ER for admission by his wound care doctor due to gas in his right foot. Patient states he had a CT scan yesterday. He does report increasing fatigue but no fever. Patient states he has had previous amputation secondary to diabetic ulcers completed by Dr. Ayoub. Home Medications Home Medications Medication Instructions Recorded Confirmed Type cholecalciferol (vitamin D3) 50 2,000 units PO HS 04/07/18 11/05/19 History mcg (2,000 unit) capsule cyanocobalamin (vitamin B-12) 1,000 mcg PO HS 04/07/18 11/05/19 History 1,000 mcg capsule magnesium oxide 400 mg PO HS cap 04/07/18 11/05/19 History apixaban 5 mg tablet 5 mg PO BID 12/31/18 11/05/19 History blood-glucose transmitter #1 ea 12/31/18 11/01/19 History PreserVision AREDS-2 1 tab PO BID 01/04/19 11/05/19 History folic acid 800 mcg tablet 800 mcg PO HS 01/29/19 11/05/19 History atorvastatin [Lipitor] 80 mg PO HS 02/01/19 11/05/19 History ferrous sulfate 325 mg PO HS 05/31/19 11/05/19 History isosorbide mononitrate 60 mg PO BID 05/31/19 11/05/19 History Renal Caps 1 cap PO HS 08/06/19 11/05/19 History acyclovir 400 mg PO HS 08/06/19 11/05/19 History calcium carb and citrate-vitD3 1 tab PO HS 08/06/19 11/05/19 History [Citracal-D3 Slow Release] clopidogrel [Plavix] 75 mg PO HS 08/06/19 11/05/19 History pantoprazole [Protonix] 40 mg PO QAM 08/06/19 11/05/19 History sodium bicarbonate 1,300 mg PO BID #120 tab 10/14/19 11/05/19 Rx celecoxib [Celebrex] 100 mg PO DAILY 11/05/19 11/05/19 History ciprofloxacin HCl [Cipro] 250 mg PO BID 11/05/19 11/05/19 History furosemide [Lasix] 20 mg PO DAILY PRN 11/05/19 11/05/19 History insulin lispro [Humalog U-100 100 units CONTINUOUS SUBCUTANEOUS 11/05/19 11/05/19 History Insulin] INFUSION DAILY levothyroxine [Synthroid] 112 mcg PO QAM 11/05/19 11/05/19 History nitroglycerin [Nitrostat] 0.4 mg SL Q5M PRN 11/05/19 11/05/19 History Allergies Allergy/AdvReac Type Severity Reaction Status Date / Time No Known Allergies Allergy Verified 11/05/19 17:23 Past Med/Surg History Medical History Acquired claw toe of left foot (Acute) Acquired claw toe of right foot (Acute) Actinic keratosis Anemia (Chronic) Aortic stenosis Ascending aortic aneurysm MONITORING - DR. BIRD - STABLE SINCE 2005 AV block, 3rd degree Basal cell carcinoma of left forehead (Resolved) CAD (coronary artery disease) Chronic diarrhea Chronic kidney disease FOLLOWS W/ DR. COUGHLIN Clostridium difficile diarrhea Colon polyps Diabetes mellitus with diabetic polyneuropathy (Acute) Diabetic foot ulcer associated with type 1 diabetes mellitus (Acute) Diastolic dysfunction Dizziness Fatigue Foot deformity (Chronic) Gastric ulcer Herpes zoster History of atrial fibrillation DX FALL 2017 - ON ELIQUIS - S/P CARDIAC ABLATION - FOLLOWS W/ DR. 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, managed with low dose furosemide Vitamin D deficiency (Chronic) Surgical History History of amputation of lesser toe of right foot (Acute) History of aortic valve replacement 2012 History of appendectomy History of arthroscopy of left shoulder History of cardiac cath 2016 - [facility] NO STENTS/ANGIOPLASTY 2006 - [facility] [place] - 1 STENT PLACED 2012 - [facility] [place] NO STENTS 1993 --> CABG History of coronary artery bypass graft x 3 1993 History of cystoscopy W/ STONE EXTRACTION 03/20/17: LMA #5 History of esophagogastroduodenoscopy (EGD) History of gastric bypass 20 YEARS AGO - FOR DM History of hand surgery Lt History of inguinal hernia repair Rt 03/02/14: MAC #4, ETT #7.5, Oral, Grade 2 View History of laminectomy CERVICAL SPINE History of radiofrequency ablation procedure for cardiac arrhythmia History of tonsillectomy Hx of heart artery stent 2006 Presence of permanent cardiac pacemaker S/P left knee arthroscopy S/P right knee arthroscopy Status post endovenous radiofrequency ablation of saphenous vein Family History Father Coronary heart disease Myocardial infarction Brother Diabetes Mother Diabetes Cancer Denies family history of Colon cancer Ovarian cancer Prostate cancer Breast cancer Social History Preferred Language: Welsh Communication Ability: Effective Visual Impairment: No Limitations 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: Normal 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: No Beliefs That Will Affect Care: None marital status: Current Living Situation: Spouse current occupational status: retired current occupation: Retired Other Information That Helps Us Care for You: No Feels Safe at Home: Yes Safety Concerns: Feels Safe At This Time Smoking Status: Never smoker Second Hand Exposure: No ; Hx Alcohol Use: No Hx Substance Use: No Review of Systems A total of 10 systems reviewed and were otherwise negative Physical Exam Vital Signs Vital Signs - 24 hr 11/05/19 16:36 11/05/19 17:15 11/05/19 17:18 Temperature 36.6 C Temperature Source Oral Pulse Rate 70 70 70 Pulse Rate from SpO2 Sensor 70 70 Respiratory Rate 20 18 20 Blood Pressure 154/73 H 138/75 Blood Pressure Mean 100 103 Blood Pressure Position Sitting Pulse Oximetry 99 100 100 Oxygen Delivery Method Room Air Sepsis Recent Fever Within 48 Hours No Sepsis New/Unexplained Change in Mental Status No Sepsis Action Taken by Nursing No Action Required 11/05/19 17:30 11/05/19 17:31 11/05/19 18:00 Temperature Temperature Source Pulse Rate 72 70 70 Pulse Rate from SpO2 Sensor 69 70 71 Respiratory Rate 25 H 16 22 Blood Pressure 135/75 161/90 H Blood Pressure Mean 89 127 Blood Pressure Position Pulse Oximetry 100 100 100 Oxygen Delivery Method Sepsis Recent Fever Within 48 Hours Sepsis New/Unexplained Change in Mental Status Sepsis Action Taken by Nursing 11/05/19 18:01 11/05/19 18:30 11/05/19 18:31 Temperature Temperature Source Pulse Rate 70 74 73 Pulse Rate from SpO2 Sensor 71 69 69 Respiratory Rate 21 24 23 Blood Pressure 163/93 H Blood Pressure Mean 130 Blood Pressure Position Pulse Oximetry 100 99 96 Oxygen Delivery Method Sepsis Recent Fever Within 48 Hours Sepsis New/Unexplained Change in Mental Status Sepsis Action Taken by Nursing 11/05/19 19:30 11/05/19 20:01 Temperature Temperature Source Pulse Rate 76 78 Pulse Rate from SpO2 Sensor 70 70 Respiratory Rate 24 18 Blood Pressure 174/90 H Blood Pressure Mean 124 Blood Pressure Position Pulse Oximetry 100 100 Oxygen Delivery Method Room Air Room Air Sepsis Recent Fever Within 48 Hours Sepsis New/Unexplained Change in Mental Status Sepsis Action Taken by Nursing Physical Exam GENERAL: He is oriented to person, place, and time. He appears well-developed and well-nourished. He does not appear distressed. HENT: Exam performed. - Head: Normocephalic and atraumatic. - Right Ear: External ear normal. No mastoid tenderness. - Left Ear: External ear normal. No mastoid tenderness. - Mouth/Throat: The oropharynx is clear and moist. No trismus in the jaw. No dental abscesses or uvula swelling. No oropharyngeal exudate or tonsillar abscesses. EYES: Conjunctivae and EOM are normal. Pupils are equal, round, and reactive to light. Right eye exhibits no discharge. Left eye exhibits no discharge. No scleral icterus. NECK: Normal range of motion. Neck supple. No JVD present. No spinous process tenderness present. No carotid bruit present. No rigidity. No tracheal deviation and normal range of motion present. No Brudzinski's sign and no Kernig's sign noted. CV: Normal rate, regular rhythm, normal heart sounds and intact distal pulses. There is no peripheral edema. Palpable radial pulses bue. PULM/CHEST: Effort normal and breath sounds normal. No respiratory distress. No stridor. He has no wheezes. He has no rales. - Chest Wall: He exhibits no tenderness. ABD: The abdomen is soft. Bowel sounds are normal. He has no distension. No mass is present. There is no tenderness. There is no rebound, no guarding, no Lipscomb's sign and no tenderness at McBurney's point. Rovsig negative. MUSC/SKEL: Right foot: Multiple amputated toes. There is a well-healing ulcer on the plantar aspect of his midfoot. He has a ulcer on his heel that has purulent foul-smelling discharge coming from it. LYMPH: No cervical adenopathy. NEURO: He is alert and oriented to person, place, and time. He has normal strength. No cranial nerve deficit or sensory deficit. Coordination and gait normal. GCS eye subscore is 4. GCS verbal subscore is 5. GCS motor subscore is 6. Cerebellar tests wnl. SKIN: Skin is warm and dry. He is not diaphoretic. PSYCH: He has a normal mood and affect. Behavior is normal. Judgment and thought content normal. Course Course 1644: The patient was evaluated in room C3. A complete history and physical exam was performed. EMR reviewed. Patient had a CT of his foot yesterday which showed droplet of soft tissue gas in the dorsal soft tissues suspicious for gas- forming infectious process. Patient will be ordered empiric antibiotic treatment for gas gangrene and will be planned on being admitted to the hospital service. 1730: Discussed with Dr. Burch [facility] hospitalist who agrees to the admission. 1745: Patient's labs show normal white blood cell count, potassium 5.9. Creatinine is at baseline. Patient was treated with hyperkalemia with calcium gluconate, 10 units of insulin and 1 amp of D50. Cardiac monitoring: An order was placed for continuous cardiac monitoring. The monitor shows a rate of 70 with sinus rhythm Administered Medications Acyclovir (Zovirax) 400 mg PO [facility] Stop: 12/05/19 21:29 Last Admin: 11/05/19 21:53 Dose: 400 mg Documented by: [id number] Apixaban (Eliquis) 5 mg PO BID [facility] Stop: 12/05/19 21: Last Admin: 11/05/19 21:52 Dose: 5 mg Documented by: [id number] Atorvastatin Calcium (Lipitor) 80 mg PO [facility] Stop: 12/05/19 21:29 Last Admin: 11/05/19 21:51 Dose: 80 mg Documented by: [id number] Clopidogrel Bisulfate (Plavix) 75 mg PO [facility] Stop: 12/05/19 21:29 Last Admin: 11/05/19 21:51 Dose: 75 mg Documented by: [id number] Cyanocobalamin (Vitamin B-12) 1,000 mcg PO [facility] Stop: 12/05/19 21:29 Last Admin: 11/05/19 21:51 Dose: 1,000 mcg Documented by: [id number] Ferrous Sulfate (Feosol) 325 mg PO HS [facility] Stop: 12/05/19 21:29 Last Admin: 11/05/19 21:50 Dose: 325 mg Documented by: [id number] Folic Acid (Folvite) 800 mcg PO [facility] Stop: 12/05/19 21:29 Last Admin: 11/05/19 21:52 Dose: 800 mcg Documented by: [id number] Isosorbide Mononitrate (Imdur Extended Rel) 60 mg PO BID [facility] Stop: 12/05/19 21:29 Last Admin: 11/05/19 21:51 Dose: 60 mg Documented by: [id number] Magnesium Oxide (Mag-Ox) 400 mg PO [facility] Stop: 12/05/19 21:29 Last Admin: 11/05/19 21:52 Dose: 400 mg Documented by: [id number] Multivitamins/Minerals (Caltrate Plus) 1 tab PO [facility] Stop: 12/05/19 21:29 Last Admin: 11/05/19 21:50 Dose: 1 tab Documented by: [id number] Sodium Bicarbonate (Sodium Bicarbonate) 1,300 mg PO BID [facility]IGU[facility] Stop: 12/05/19 21:29 Last Admin: 11/05/19 21:52 Dose: 1,300 mg Documented by: [id number] Vitamin B Complex/Folic Acid (Nephrocaps) 1 cap PO [facility] Stop: 12/05/19 21:29 Last Admin: 11/05/19 21:50 Dose: 1 cap Documented by: [id number] Vitamin D (Vitamin D3) 2,000 units PO [facility] Stop: 12/05/19 21:29 Last Admin: 11/05/19 21:50 Dose: 2,000 units Documented by: [id number] Discontinued Medications Calcium Gluconate (Calcium Gluconate 10%) Confirm Administered Dose 1,000 mg IV .STK-MED ONE Stop: 11/05/19 18:05 Last Admin: 11/05/19 18:06 Dose: Not Given Documented by: [id number] Dextrose (Dextrose 50%) 50 ml IV NOW STA Stop: 11/05/19 17:42 Last Admin: 11/05/19 18:05 Dose: 50 ml Documented by: [id number] Piperacillin Sod/Tazobactam Sod (Zosyn) 4.5 gm in 120 mls @ 240 mls/hr IV NOW ONE Stop: 11/05/19 17:11 Last Infusion: 11/05/19 17:58 Dose: 0 mls/hr Documented by: [id number] Admin: 11/05/19 17:16 Dose: 240 mls/hr Documented by: [id number] Vancomycin HCl 1,750 mg/ (Sodium Chloride) 535 mls @ 200 mls/hr IV NOW ONE Stop: 11/05/19 19:56 Last Infusion: 11/05/19 20:50 Dose: 0 mls/hr Documented by: [id number] Admin: 11/05/19 17:59 Dose: 200 mls/hr Documented by: [id number] Calcium Gluconate 1,000 mg/ (Sodium Chloride) 60 mls @ 240 mls/hr IV NOW STA Stop: 11/05/19 17:55 Last Infusion: 11/05/19 18:38 Dose: 0 mls/hr Documented by: [id number] Admin: 11/05/19 18:06 Dose: 240 mls/hr Documented by: [id number] Insulin Human Regular 10 units (/ Syringe) 9.9 mls @ 3 mls/sec IV ONE STA Stop: 11/05/19 17:42 Last Admin: 11/05/19 18:05 Dose: 3 mls/sec Documented by: [id number] Cosigned by: [id number] Insulin Human Regular (Novolin R U-100 Per Unit) Confirm Administered Dose 10 units .ROUTE .STK-MED ONE Stop: 11/05/19 18:05 Last Admin: 11/05/19 18:06 Dose: Not Given Documented by: [id number] Critical Care Time Critical Care Time: Yes Total Critical Care Time: 40 I have personally spent greater than 40 minutes of critical care time in the direct management of this patient. This includes bedside care, interpretation of diagnostic studies, and testing, discussion with consultants, patient, and family members, and other required patient management activities. This 40 minutes is in excess of all separately billable procedures. Medical Decision Making Laboratory Data Result diagrams: 11/05/19 17:00 11/05/19 17:00 Lab Results 11/05/19 11/05/19 11/05/19 Range/Units 17:00 17:00 17:00 WBC 6.13 (4.8-10.8) K/uL RBC 2.96 L (4.7-6.1) M/uL Hgb 10.2 L (14.0-18.0) g/dL Hct 32.1 L (42-52) % MCV 108.4 H (80-100) fL MCH 34.5 H (25-34) pg MCHC 31.8 L (32-36) g/dL RDW Std Deviation 69.5 H (36.4-46.3) fL RDW Coeff of Seferino 17.4 H (11.5-14.5) % Plt Count 139 (130-400) K/uL MPV 9.6 (7.4-10.4) fL Immature Gran % (Auto) 0.5 % Neut % (Auto) 71.2 % Lymph % (Auto) 11.6 % Bowman % (Auto) 13.4 % Eos % (Auto) 2.8 % Baso % (Auto) 0.5 % Immature Gran # (Auto) 0.03 H (0.00-0.02) K/uL Neut # (Auto) 4.37 (1.4-6.5) K/uL Lymph # (Auto) 0.71 L (1.2-3.4) K/uL Bowman # (Auto) 0.82 H (0.11-0.59) K/uL Eos # (Auto) 0.17 (0-0.5) K/uL Baso # (Auto) 0.03 (0-0.2) K/uL Sodium 141 (136-145) mmol/L Potassium 5.9 H (3.5-5.1) mmol/L Chloride 112 H (98-107) mmol/L Carbon Dioxide 22 (21-32) mmol/L Anion Gap 7.0 (3-11) BUN 57 H (7-18) mg/dl Creatinine 2.35 H (0.6-1.4) mg/dl Est Cr Clr Drug Dosing Not Reportable Est GFR ( Amer) 30.0 Est GFR (Non-Af Amer) 25.9 BUN/Creatinine Ratio 24.3 H (10-20) Glucose 120 H (70-99) mg/dl Lactate 1.2 (0.4-2.0) mmol/L Calcium 8.6 (8.5-10.1) mg/dl ECG Data Indication: + other (Hyperkalemia) Rate (beats per minute): 70 Rhythm: + other (Paced) Additional Comments: No ectopy MDM Narrative 1645: The patient was evaluated in room C3. A complete history and physical exam was performed. EMR reviewed. Patient had a CT of his foot yesterday which showed droplet of soft tissue gas in the dorsal soft tissues suspicious for gas- forming infectious process. Patient will be ordered empiric antibiotic treatment for gas gangrene and will be planned on being admitted to the hospital service. 1730: [facility] who agrees to the admission. 1745: Patient's labs show normal white blood cell count, potassium 5.9. Creatinine is at baseline. Patient was treated with hyperkalemia with calcium gluconate, 10 units of insulin and 1 amp of D50. Cardiac monitoring: An order was placed for continuous cardiac monitoring. The monitor shows a rate of 70 with sinus rhythm Impression & Plan Gas gangrene, Pressure ulcer, heel, right, unstageable, Acute hyperkalemia Discharge Plan Visit Data *Final* Discharge Date/Time: 11/05/19 20:49 Chief Complaint: Infection Stated Complaint: INFECTION IN FOOT ED Provider: John Arboleda Discharge Problem: Gas gangrene, Pressure ulcer, heel, right, unstageable, Acute hyperkalemia Patient Disposition: Admitted As Inpatient Discharge Instructions Interventions: ED Discharge Assessment Last Done: 11/05/19 20:49
[2019-11-05] MEDS ORDERED: INSULIN HUMAN REGULAR PER UNIT 10 UNITS in SYRINGE 9.9 ML IV STA (17:41)
[2019-11-05] MEDS ORDERED: CALCIUM GLUCONATE 10% 1,000 MG in SODIUM CHLORIDE 0.9% 50 ML IV STA (17:41)
[2019-11-05] MEDS ORDERED: DEXTROSE 50% 50 ML SYRINGE IV STA (17:41)
[2019-11-05] MEDS ORDERED: NovoLIN-R INSULIN PER UNIT CHARGE ONE (18:04)
[2019-11-05] MEDS ORDERED: CALCIUM GLUCONATE 10% 10 ML VIAL IV ONE (18:04)
[2019-11-05] MEDS ORDERED: PHARMACY GLYCEMIC MGMT CONSULT STA (20:11)
--- NOTE | 2019-11-05 20:23 | History & Physical Report ---
Date of Service November 05, 2019 Assessment & Plan (1) Gas gangrene: Concern for this on outpatient CT however only droplet of air I can see on imaging is on plantar aspect of foot rather than dorsum This plantar droplet of air correlates to an open blister which likely appeared to have air in it at the time of the CT, suspect this is more from friction/pressure than causative organism Will consult wound care for clarification but continue treatment with IV ciprofloxacin alone overnight, if getting worse or septic add imipenem overnight Regardless he requires admission due to hyperkalemia and combination Vancomycin and Zosyn given in the ER therefore concern for ROMA to develop (2) Acute hyperkalemia: 10 units insulin/dextrose given in ER in addition to calcium gluconate Repeat BMP @ 11pm, if down trending will just repeat in AM Likely secondary to CKD with possible ROMA. Unclear if compliant with low K diet as outpatient (3) Macrocytic anemia: No EPO mentioned in outpatient nephrology notes. Other hematological lines (WBC, neutrophils, Plt WNL). TSH WNL, B12/folate adequately replaced Retic count, LDH, Bilirubin added to AM labs to assess for hemolysis LFTs in AM to assess liver No known alcohol use Given prior gastric bypass consider outpatient copper levels to assess for deficiency Consider heme referral is above workup unrevealing (4) Atrial fibrillation: Continue anticoagulation with Eliquis Rate controlled now appears to have stopped diltiazem (5) History of complete heart block: Noted reason for pacemaker (6) Diabetic foot ulcer associated with type 1 diabetes mellitus: Wound care consult (7) Coronary artery disease: Continue Eliquis, plavix, atorvastatin. Unclear why he is not on a BB (8) Peripheral arterial disease: Continue Eliquis, plavix and atorvastatin as above (9) Type 1 diabetes mellitus: Patient to use own insulin pump. As per his last admission he had very good control regarding this. No need for BSG ACHS, just PRN in case of altered mental state with hypoglycemia protocol (10) Pressure ulcer, heel, right, unstageable: No surrounding cellulitis Wound care consult (11) Chronic kidney disease, stage 4 (severe): Will hold celebrex in setting of hyperkalmeia and possible developing ROMA Monitor with serial BMP (12) DVT prophylaxis: Continue his usual anticoagulation with Eliquis Admission and Anticipated Discharge Date Admission Date: 11/05/2019 History of Present Illness Chief Complaint: Abnormal outpatient foot CT Primary Care Provider: Guanaco Esteban MD Talon Blake is 74 year old male with type 1 diabetes mellitus and longstanding history of diabetic foot ulcers who was advised to come to the ER by his outpatient wound care physician after concern of foot CT showing potential gas gangrene and pseudomonas growing on wound culture on 10/26 despite treatment with oral ciprofloxacin as an outpatient. The patient notes he has taken ciprofloxacin for 1 week and felt his wound was actually improving, plan was to take it for 1 more week until this foot CT was performed. He denies any fevers or chills. He has been walking on his foot but with a surgical shoe. On 10/27/19 he was followed up at wound care and noted not to be wearing his Darco shoe secondary to needing to drive. Swab taken at that time was positive for pseudomonas. In the ER he was given Vancomycin and Zosyn for the infection. Insulin/dextrose given for his hyperkalemia. Of note the patient was recently admitted from to due to prepatellar cellulitis and suspected pseudogout in his left knee. After 2-3 days of antibiotics for the cellulitis he was then put on a course of prednisone which helped the pseudogout but it wasn't until he went to the outpatient orthopedic office and he had a intraarticular knee steroid injection that this truly cleared up. He notes the knee pain and cellulitis have now completely resolved. However since discharge his foot ulcers have become worse. No shortness of breath, cough, fevers, loss of taste or smell. No known COVID-19 exposure. Allergies Allergy/AdvReac Type Severity Reaction Status Date / Time No Known Allergies Allergy Verified 11/05/19 17:23 Home Medications Home Medications Medication Instructions Recorded Confirmed Type cholecalciferol (vitamin D3) 50 2,000 units PO HS 04/07/18 11/05/19 History mcg (2,000 unit) capsule cyanocobalamin (vitamin B-12) 1,000 mcg PO HS 04/07/18 11/05/19 History 1,000 mcg capsule magnesium oxide 400 mg PO HS cap 04/07/18 11/05/19 History apixaban 5 mg tablet 5 mg PO BID 12/31/18 11/05/19 History blood-glucose transmitter #1 ea 12/31/18 11/01/19 History PreserVision AREDS-2 1 tab PO BID 01/04/19 11/05/19 History folic acid 800 mcg tablet 800 mcg PO HS 01/29/19 11/05/19 History atorvastatin [Lipitor] 80 mg PO HS 02/01/19 11/05/19 History ferrous sulfate 325 mg PO HS 05/31/19 11/05/19 History isosorbide mononitrate 60 mg PO BID 05/31/19 11/05/19 History Renal Caps 1 cap PO HS 08/06/19 11/05/19 History acyclovir 400 mg PO HS 08/06/19 11/05/19 History calcium carb and citrate-vitD3 1 tab PO HS 08/06/19 11/05/19 History [Citracal-D3 Slow Release] clopidogrel [Plavix] 75 mg PO HS 08/06/19 11/05/19 History pantoprazole [Protonix] 40 mg PO QAM 08/06/19 11/05/19 History sodium bicarbonate 1,300 mg PO BID #120 tab 10/14/19 11/05/19 Rx celecoxib [Celebrex] 100 mg PO DAILY 11/05/19 11/05/19 History ciprofloxacin HCl [Cipro] 250 mg PO BID 11/05/19 11/05/19 History furosemide [Lasix] 20 mg PO DAILY PRN 11/05/19 11/05/19 History insulin lispro [Humalog U-100 100 units CONTINUOUS SUBCUTANEOUS 11/05/19 11/05/19 History Insulin] INFUSION DAILY levothyroxine [Synthroid] 112 mcg PO QAM 11/05/19 11/05/19 History nitroglycerin [Nitrostat] 0.4 mg SL Q5M PRN 11/05/19 11/05/19 History Past Med/Surg History Medical History (Updated 11/05/19 @ 22:51 by Den Burch MD) Acquired claw toe of left foot (Acute) Acquired claw toe of right foot (Acute) Actinic keratosis Anemia (Chronic) Aortic stenosis Ascending aortic aneurysm MONITORING - DR. BIRD - STABLE SINCE 2005 AV block, 3rd degree Basal cell carcinoma of left forehead (Resolved) CAD (coronary artery disease) Chronic diarrhea Chronic kidney disease FOLLOWS W/ DR. COUGHLIN Chronic kidney disease, stage 4 (severe) Clostridium difficile diarrhea Colon polyps Diabetes mellitus with diabetic polyneuropathy (Acute) Diabetic foot ulcer associated with type 1 diabetes mellitus (Acute) Diastolic dysfunction Dizziness Fatigue Foot deformity (Chronic) Gastric ulcer Herpes zoster History of atrial fibrillation DX FALL 2017 - ON ELIQUIS - S/P CARDIAC ABLATION - FOLLOWS W/ DR. 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, managed with low dose furosemide Type 1 diabetes mellitus Vitamin D deficiency (Chronic) Surgical History History of amputation of lesser toe of right foot (Acute) History of aortic valve replacement 2013 History of appendectomy History of arthroscopy of left shoulder History of cardiac cath 2016 - [facility] NO STENTS/ANGIOPLASTY 2006 [place] [facility] [place] 1 STENT PLACED 2011 [place] [facility] [place] NO [place]ENTS 1993 --> CABG History of coronary artery bypass graft x 3 1993 History of cystoscopy W/ STONE EXTRACTION 03/20/17: LMA #5 History of esophagogastroduodenoscopy (EGD) History of gastric bypass 20 YEARS AGO - FOR DM History of hand surgery Lt History of inguinal hernia repair Rt 03/02/14: MAC #4, ETT #7.5, Oral, Grade 2 View History of laminectomy CERVICAL SPINE History of radiofrequency ablation procedure for cardiac arrhythmia History of tonsillectomy Hx of heart artery stent 2006 Presence of permanent cardiac pacemaker S/P left knee arthroscopy S/P right knee arthroscopy Status post endovenous radiofrequency ablation of saphenous vein Family History Father Coronary heart disease Myocardial infarction Brother Diabetes Mother Diabetes Cancer Denies family history of Colon cancer Ovarian cancer Prostate cancer Breast cancer Social History Preferred Language: Macedonian Communication Ability: Effective Visual Impairment: No Limitations 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: Normal Hospital Carrier Required: No Beliefs That Will Affect Care: None marital status: Current Living Situation: Spouse current occupational status: retired current occupation: Retired Other Information That Helps Us Care for You: No Feels Safe at Home: Yes Safety Concerns: Feels Safe At This Time Smoking Status: Never smoker Second Hand Exposure: No ; Hx Alcohol Use: No Hx Substance Use: No Review of Systems Review of Systems: All systems reviewed & are unremarkable except as noted in HPI & below Physical Exam Constitutional: well developed; + not well nourished and no acute distress Eyes: + anicteric sclerae; normal pupil size ENMT: external ear and nose normal, oropharynx normal Neck: trachea midline, no thyromegaly Respiratory: normal respiratory effort, lungs clear to auscultation Cardiovascular: Rate/Rhythm: regular rate and regular rhythm Heart Sounds: no murmur Vessels: no JVD Extremities: normal capillary refill and + pedal edema (2+ to hips on R > 1+ L (similar to prior admission)); no calf tenderness Gastrointestinal (Abdomen): Inspection/Auscultation: abdomen normal to inspection and normal bowel sounds Percussion/Palpation: abdomen soft; abdomen nontender, no guarding and abdomen not rigid Musculoskeletal: Left knee effusion and pain resolved. No prepatellar cellulitis Skin: Diabetic ulcer on plantar aspect of right foot with open blister distal and lateral to ulcer. Does not appear to be connected. No pus. No cellulitis Neurologic: moves all extremities and awake; no focal motor deficits and not confused Speech / Cognition: normal speech Motor/Sensory: + sensory deficit (decreased sensation in feet bilateral but still has some feeling) Psychiatric: A+Ox3, euthymic affect Lymphatic: no inguinal lymphadenopathy Results & Data Results & [facility] ([facility]) Vital Signs (Past 12 Hours) Vital Signs Temp Pulse Resp BP Pulse Ox 11/05/19 19:30 76 24 100 11/05/19 18:31 73 23 96 11/05/19 18:30 74 24 163/93 H 99 11/05/19 18:01 70 21 100 11/05/19 18:00 70 22 161/90 H 100 11/05/19 17:31 70 16 100 11/05/19 17:30 72 25 H 135/75 100 11/05/19 17:18 70 20 100 11/05/19 17:15 70 18 138/75 100 11/05/19 16:36 36.6 C 70 20 154/[address] foot RT wo con IMPRESSION: 1. Profound osteopenia 2. Postsurgical changes of prior amputations as described above 3. Moderate arthritic changes of the midfoot 4. Diffuse soft tissue edema 5. Plantar soft tissue ulceration at the approximate level of the third metatarsal head. There are no bony destructive changes to indicate osteomyelitis 6. Droplet of soft tissue gas within the dorsal soft tissues, a finding suspicious for a gas-forming infectious process. ECG Indication: other (hyperkalemia) Rate (beats per minute): 70 Rhythm: atrial fibrillation (no discernable p waves) and other (ventricular- paced) Comparison ECG Date: from (10/07/2019) Change: no significant change (no hyperkalemia changes) Code Status & VTE Plan Code Status Full VTE Prophylaxis Plan VTE Prophylaxis will be ordered: Yes PG Care Time/CCT Total # of Minutes Spent Total Time Spent with Patient: Total time spent is greater than 50% in coordination of care (as documented) at patient's floor/unit and/or counseling patient: Coding Level of Care Code 51827 Initial Inpt Care Lvl 3 Diagnoses Gas gangrene A48.0 Acute hyperkalemia E87.5 Macrocytic anemia D53.9 Atrial fibrillation I48.91 History of complete heart block Z86.79 Diabetic foot ulcer associated with type 1 diabetes mellitus E10.621; L97.412 Diabetic foot ulcer location: midfoot Laterality: right Non-pressure ulcer stage: with fat layer exposed Coronary artery disease I25.10 Peripheral arterial disease I73.9 Type 1 diabetes mellitus E10.9 Pressure ulcer, heel, right, unstageable L89.610 Chronic kidney disease, stage 4 (severe) N18.4 DVT prophylaxis Z29.9 (1) Diabetic foot ulcer associated with type 1 diabetes mellitus Diabetic foot ulcer location: midfoot Laterality: right Non-pressure ulcer stage: with fat layer exposed Qualified Code(s): E10.621 - Type 1 diabetes mellitus with foot ulcer; L97.412 - Non-pressure chronic ulcer of right heel and midfoot with fat layer exposed
[2019-11-05] MEDS: FERROUS SULFATE 325 MG TAB PO SCH (21:50)
[2019-11-05] MEDS: CHOLECALCIFEROL 1,000 UNITS 25 MCG TAB PO SCH (21:50)
[2019-11-05] MEDS: NEPHROCAPS PO SCH (21:50)
[2019-11-05] MEDS: CALCIUM 600MG + VIT D 400 IU TAB PO SCH (21:50)
[2019-11-05] MEDS: ATORVASTATIN 40 MG TAB PO SCH (21:51)
[2019-11-05] MEDS: CLOPIDOGREL BISULFATE 75 MG TAB PO SCH (21:51)
[2019-11-05] MEDS: CYANOCOBALAMIN 500 MCG TABLET (VITAMIN B-12) PO SCH (21:51)
[2019-11-05] MEDS: ISOSORBIDE MONO EXTENDED REL 60 MG TABCR PO SCH (21:51)
[2019-11-05] MEDS: APIXABAN 5 MG TABLET PO SCH (21:52)
[2019-11-05] MEDS: SODIUM BICARBONATE 650 MG TAB PO SCH (21:52)
[2019-11-05] MEDS: FOLIC ACID 400 MCG TAB PO SCH (21:52)
[2019-11-05] MEDS: MAGNESIUM OXIDE 400 MG TAB PO SCH (21:52)
[2019-11-05] MEDS: ACYCLOVIR 400 MG TAB PO SCH (21:53)
[2019-11-05] MEDS ORDERED: CIPROFLOXACIN / D5W 400 MG/200 ML BAG IV SCH (22:00)
[2019-11-05] MEDS ORDERED: GLUCOSE 40% GEL 15 GM TUBE PO PRN (22:45)
[2019-11-05] MEDS ORDERED: GLUCAGON FOR INJ 1 MG VIAL SQ PRN (22:45)
[2019-11-05] MEDS ORDERED: GLUCOSE 10 TABS/TUBE PO PRN (22:45)
[2019-11-05] MEDS ORDERED: DEXTROSE 50% 50 ML SYRINGE IV PRN (22:45)
[2019-11-05] MEDS ORDERED: CARBOHYDRATES FOR HYPOGLYCEMIA PO PRN (22:45)
[2019-11-05 23:41] LABS: BUN Creatinine Ratio 23.5 (10-20); Calcium 8.5 mg/dl (8.5-10.1); Creatinine Clr Calc Pharmacy 28.8 ml/min; Est GFR (African American) 31.6; Est GFR (Non-African American) 27.3; Potassium 6.2 mmol/L (3.5-5.1)
[2019-11-06] MEDS ORDERED: DEXTROSE 50% 50 ML SYRINGE IV STA (00:30)
[2019-11-06] MEDS ORDERED: INSULIN HUMAN REGULAR PER UNIT 10 UNITS in SYRINGE 9.9 ML IV STA (00:30)
[2019-11-06] MEDS ORDERED: FUROSEMIDE 20 MG in SYRINGE 0 ML IV STA (00:34)
[2019-11-06] MEDS: LEVOTHYROXINE SODIUM 112 MCG TABLET PO SCH (06:00)
--- NOTE | 2019-11-06 06:57 | Electrocardiogram Report ---
Test Reason : Blood Pressure : / mmHG Vent. Rate : 070 BPM Atrial Rate : 071 BPM P-R Int : 000 ms QRS Dur : 126 ms QT Int : 432 ms P-R-T Axes : 000 119 -32 degrees QTc Int : 466 ms Poor data quality, interpretation may be adversely affected Ventricular-paced rhythm Abnormal ECG When compared with ECG of 07-OCT-2019 22:00, No significant change was found Confirmed by Yaw Glaser ([id number]) on 11/06/2019 6:57:06 AM Referred By: REFERRED SELF Confirmed By:Yaw Glaser
[2019-11-06] MEDS: PANTOprazole 40 MG TAB PO SCH (08:30)
[2019-11-06] MEDS: APIXABAN 5 MG TABLET PO SCH ×2 (08:30→20:33)
[2019-11-06 08:34] LABS: Reticulocyte % 2.6 % (0.5-2.0); Reticulocytes # 0.07 10^6/uL (0.02-0.10)
[2019-11-06] MEDS: ISOSORBIDE MONO EXTENDED REL 60 MG TABCR PO SCH (08:36)
[2019-11-06] MEDS: SODIUM BICARBONATE 650 MG TAB PO SCH ×2 (08:36→20:32)
[2019-11-06] MEDS ORDERED: Nursing to Pharmacy Communication SCH (08:45)
[2019-11-06] MEDS ORDERED: CEROVITE ADV FORMULA TAB PO SCH ×2 (09:00→21:00)
[2019-11-06] MEDS ORDERED: CELECOXIB 100 MG CAP PO SCH (09:00)
[2019-11-06 09:07] LABS: BUN Creatinine Ratio 23.2 (10-20); Calcium 8.4 mg/dl (8.5-10.1); Creatinine Clr Calc Pharmacy 29.2 ml/min; Est GFR (African American) 32.2; Est GFR (Non-African American) 27.8; Potassium 5.8 mmol/L (3.5-5.1)
--- NOTE | 2019-11-06 15:53 | Hospitalist Progress Note ---
Date of Service November 06, 2019 Assessment & Plan (1) Chronic kidney disease, stage 4 (severe): (2) Type 1 diabetes mellitus: (3) Macrocytic anemia: (4) Gas gangrene: Diabetic foot ulcer - concern for gas gangrene on CT CT foot: diffuse ST edema, plantar ulceration 3rd metatarsal head, no osteomyelitis, drop of soft tissue gas dorsal concerning for gas forming infectious process Received vanc and zosyn in the ED WBC 6.1, afebrile On Cipro x 1 week - transitioned to IV on admission Questionable based on images and exam; noted to be on dorsal aspect however no tenderness on exam of dorsal foot Ortho evaluaed: -non-urgent debriement recommended: Friday, outpatient unless pt remains admitted by Dr. Menchaca Wound care Continue to monitor - no concern for spreading infection/cellulitis at this time Hyperkalemia: unknown origin - possibly worsening CKD? No medications that pt is on appear to cause hyperkalemia (recently on prednisone and started on sodium bicarbonate), no dietary changes Cr 2.2, GFR 27 (no acute worsening was 2.3 with GFR 26 on 10/13 when K was normal 4.6) Initially 6.2 - received calcium gluconate, and insulin 10 u with glucagon improved K to 5.8 Pt had 3 BMs today Repeat BMP pending If continues to be elevated will administer dose of miralax Continue to follow CKD4 - Diabetic Nephropathy Hx of RTA 4 - started on Sodium Bicarbonate prior admission for concern of low bicarb GFR 27 Continue to monitor BMP DM1 Continue own insulin pump - well controlled Afib/Complete Heart Block/CAD/HFpEF Continue eliquis, pavix, atorvastatin, ISM Not on BB and diltiazem was stopped HD stable Pacemaker in place Macrocytic Anemia - Anemia of chronic disease likely 2/2 CKD MCV 108 No known alcohol use Hx of gastric bypass Received iron infusions x 4 in September; normal folate/B12 levels Continue iron sulfate, B complex, MV, folic acd Hypothyroidism Continue synthroid GERD Continue pantoprazole DVT prop: On Eliquis Code: Full Dispo: med/surg (5) Acute hyperkalemia: (6) Chronic venous insufficiency: (7) Pressure ulcer, heel, right, unstageable: (8) Anemia of chronic disease: (9) Coronary artery disease: (10) Heart failure with preserved ejection fraction: (11) History of complete heart block: (12) Atrial fibrillation: (13) Dyslipidemia: (14) Diabetic neuropathy: (15) Renal tubular acidosis, type 4: Admission and Anticipated Discharge Date Admission Date: November 05, 2019 Supervising Physician Co-Signing Physician Notes I personally examined the patient and verified all gramajo points of history and exam, discussed case, and agree with decision making with Dr Monreal. fatigue last 3-4 days pretty oppressive but no cp no davis to go with it. new onset. otherwise foot feels about the same as it's been vitals noted nad heent nc at mmm breathing unlabored no accessory muscles good effort skin shows no tracking erythema or crepitis on foot foot ulcer - does not appear overtly cellulitic, certainly not gangrenous clinically. appreciate ortho input. continue cipro, continue wound care, serial exams hyperkalemia - notes that he does retain K w RTA. has improved into 5's but still fairly elevated. fortunately no cardiac complications at this time. ongoing management. ?diet / ?NSAID related? fatigue - nonspecific but soudns to be acute and oppressive. likely simply relates to comorbidities and recent run of health issues/deconditioning, but given that it only started last few days and fairly abruptly - will check echo to eval for cardiac reasons. if reassuring then can consider functional testing vs ongoing watchful waiting macrocytosis noted. considering differentials in light of normal B12, folate. may need hematology eval as outpt otherwise as above Subjective This AM pt reports feeling more retired since yesterday. No significant discomfort Was seen at wound care and had imaging of foot which was concerning for gas forming bacteria/gangrene. Sees wound care regularly for diabetic foot ulcer/care. Had amputation of 1st toe in April for concern of osteomyelitis but was not found to have osteo on path report. Denies any fever, chills, cp, sob, headache, dizziness, nausea, vomiting, abdominal pain, diarrhea, constipation. Noted to have elevated K but reports no dietary changes. Only new medications since recent hospitalization on 10/13 was prednisone and sodium bicarbonate. Pt notes typically K 4.9-5.1. Cr typically around 2.1. HD stable. Afebrile. Review of Systems Review of Systems: As per HPI Physical Exam Physical Exam: General: In NAD Neuro: A&O x 4 Pulm: CTAB equal breath sounds bilaterally CV: RRR, no m/r/g Abdomen:+BS, no TTP in all quadrants, non-distended LE: 1+ RLE edema, no calf TTP, R knee non-tender/non-erythematous R foot: plantar 3rd metatarsal region callous/subcutaneous blister/bleeding - no tenderness to palpation of dorsal or plantar aspect of ulcer region; stage 2 pressure ulcer R heel L foot: no open skin / lesions noted Results & Data Results & Data ([facility]) Vital Signs (Past 12 Hours) Vital Signs Temp Pulse Pulse Resp BP Pulse Ox 11/06/19 15:28 37.0 C 68 18 130/71 100 11/06/19 15:13 78 11/06/19 11:22 36.9 C 69 18 134/72 98 11/06/19 07:32 70 11/06/19 07:03 36.7 C 71 18 147/74 H 95 11/06/19 04:00 36.5 C 79 20 121/67 97 Resident Activity Tracking Resident Involvement: Resident Care Provided Care Provided: Adult Hospital Medicine (1) Diabetic neuropathy Diabetes mellitus complication detail: diabetic polyneuropathy Diabetes mellitus type: type 1 Qualified Code(s): E10.42 - Type 1 diabetes mellitus with diabetic polyneuropathy
[2019-11-06 17:02] LABS: Calcium 8.2 mg/dl (8.5-10.1); Est GFR (African American) 31.8; Est GFR (Non-African American) 27.5; Potassium 5.8 mmol/L (3.5-5.1)
--- NOTE | 2019-11-06 18:11 | Billing Data ---
Date of Service November 06, 2019 Coding Level of Care Code 70724 Subseq Hosp Care Lvl 3
[2019-11-06] MEDS: POLYETHYLENE (MIRALAX) 17 GM PACK PO SCH (18:16)
--- NOTE | 2019-11-06 18:55 | Consultation Report ---
DATE OF CONSULTATION: 11/06/2019 ORTHOPEDIC SURGERY INPATIENT CONSULTATION Special attention to right diabetic foot ulcer with gas on CAT scan. HISTORY OF PRESENT ILLNESS: This is a 74-year-old gentleman who is admitted overnight from the wound clinic after CAT scan documented gas. The patient notes 2 chronic wounds in the right foot, one in the heel and one in the plantar area. These have been fairly stable for him and been treated with wound care with serial debridements. He is status post right third toe amputation done by Dr. Ayoub. I had a lengthy discussion with the patient regarding care with either Dr. Ayoub or [facility]. The patient wishes to continue care with [facility] as he is seeing Dr. Verduzco recently for bursitis in his knee as well as Dr. Lo in the past and other [facility] physicians. The patient notes no significant pain in the right lower extremity. PAST MEDICAL HISTORY: 1. Aortic stenosis. 2. Aortic aneurysm. 3. Coronary artery disease. 4. Chronic kidney disease. 5. Diabetes. 6. Gastric ulcer. 7. History of atrial fibrillation, on Eliquis. 8. Hypertension. 9. History of hypokalemia and hypomagnesemia. 10. History of acute [place] in 05/2018. 10. Status post pacemaker. PHYSICAL EXAMINATION: Right foot: The patient has an ulcerated heel ulcer, which is well circumscribed, fibrinous exudate and slough is seen. There is no ascending erythema. I do not see evidence of obvious exposed tendon or bone. I do not detect any purulence or acute bacterial infection. A second ulcer over the plantar area is well circumscribed, does show a fibrinous exudate, very scant drainage, but no purulence. No streaking erythema. A third metatarsal examination shows no tenderness or active infection over the dorsal aspect of the metatarsal where a suspicion of gas was entertained on CAT scan. Review of CAT scan shows no evidence of osteomyelitis, but a small area of gas is suggested on the dorsal distal third metatarsal by radiology, but I reviewed the CT and I dont apprepiate a significant gas collection. ASSESSMENT: 1. Diabetic foot ulcers at heel and plantar area. 2. Gas seen on CAT scan. PLAN: I discussed findings and treatment with him in detail. At this point in time, I do not appreciate any evidence of ascending infection or gas gangrene despite the findings on the CAT scan. Clinically, the patient's exam does not suggest any acute bacterial infection; however, he may have chronic wound infection. Recommendation at this point in time is no need for urgent surgical treatment. He would like to follow up with Dr. Menchcaa, our foot and ankle specialist, for further discussion of outpatient treatment and/or additional surgical debridement. We will sign off currently. The patient may follow up with Dr. Menchaca early this week if he is discharged from the hospital. MAGUE
[2019-11-06] MEDS: CALCIUM 600MG + VIT D 400 IU TAB PO SCH (20:31)
[2019-11-06] MEDS: ATORVASTATIN 40 MG TAB PO SCH (20:31)
[2019-11-06] MEDS: NEPHROCAPS PO SCH (20:31)
[2019-11-06] MEDS: FERROUS SULFATE 325 MG TAB PO SCH (20:32)
[2019-11-06] MEDS: FOLIC ACID 400 MCG TAB PO SCH (20:32)
[2019-11-06] MEDS: CLOPIDOGREL BISULFATE 75 MG TAB PO SCH (20:32)
[2019-11-06] MEDS: CYANOCOBALAMIN 500 MCG TABLET (VITAMIN B-12) PO SCH (20:32)
[2019-11-06] MEDS: MAGNESIUM OXIDE 400 MG TAB PO SCH (20:32)
[2019-11-06] MEDS: ISOSORBIDE MONO EXTENDED REL 30 MG TABCR PO SCH (20:32)
[2019-11-06] MEDS: LORATADINE 10 MG TAB PO SCH (20:32)
[2019-11-06] MEDS: CHOLECALCIFEROL 1,000 UNITS 25 MCG TAB PO SCH (20:33)
[2019-11-06] MEDS: ACYCLOVIR 400 MG TAB PO SCH (20:33)
[2019-11-06] MEDS ORDERED: CIPROFLOXACIN / D5W 400 MG/200 ML BAG IV SCH (22:00)
[2019-11-07] MEDS: LEVOTHYROXINE SODIUM 112 MCG TABLET PO SCH (06:05)
[2019-11-07] MEDS: SODIUM BICARBONATE 650 MG TAB PO SCH (08:28)
[2019-11-07] MEDS: ISOSORBIDE MONO EXTENDED REL 30 MG TABCR PO SCH (08:29)
[2019-11-07] MEDS: POLYETHYLENE (MIRALAX) 17 GM PACK PO SCH (08:29)
[2019-11-07] MEDS: PANTOprazole 40 MG TAB PO SCH (08:29)
[2019-11-07] MEDS: APIXABAN 5 MG TABLET PO SCH (08:29)
[2019-11-07] MEDS: LORATADINE 10 MG TAB PO SCH (08:30)
[2019-11-07 10:36] LABS: BUN Creatinine Ratio 23.3 (10-20); Calcium 8.2 mg/dl (8.5-10.1); Est GFR (African American) 30.5; Est GFR (Non-African American) 26.3; Potassium 5.4 mmol/L (3.5-5.1)
--- NOTE | 2019-11-07 11:08 | Discharge Summary ---
Date of Service November 07, 2019 Admission HPI Per Admitting Provider Talon Blake is 74 year old male with type 1 diabetes mellitus and longstanding history of diabetic foot ulcers who was advised to come to the ER by his outpatient wound care physician after concern of foot CT showing potential gas gangrene and pseudomonas growing on wound culture on 10/26 despite treatment with oral ciprofloxacin as an outpatient. The patient notes he has taken ciprofloxacin for 1 week and felt his wound was actually improving, plan was to take it for 1 more week until this foot CT was performed. He denies any fevers or chills. He has been walking on his foot but with a surgical shoe. On 10/27/19 he was followed up at wound care and noted not to be wearing his Darco shoe secondary to needing to drive. Swab taken at that time was positive for pseudomonas. In the ER he was given Vancomycin and Zosyn for the infection. Insulin/dextrose given for his hyperkalemia. Of note the patient was recently admitted from to due to prepatellar cellulitis and suspected pseudogout in his left knee. After 2-3 days of antibiotics for the cellulitis he was then put on a course of prednisone which helped the pseudogout but it wasn't until he went to the outpatient orthopedic office and he had a intraarticular knee steroid injection that this truly cleared up. He notes the knee pain and cellulitis have now completely resolved. However since discharge his foot ulcers have become worse. No shortness of breath, cough, fevers, loss of taste or smell. No known COVID-19 exposure. Admission Exam Per Admitting Provider Constitutional: well developed; + not well nourished and no acute distress Eyes: + anicteric sclerae; normal pupil size ENMT: external ear and nose normal, oropharynx normal Neck: trachea midline, no thyromegaly Respiratory: normal respiratory effort, lungs clear to auscultation Cardiovascular: Rate/Rhythm: regular rate and regular rhythm Heart Sounds: no murmur Vessels: no JVD Extremities: normal capillary refill and + pedal edema (2+ to hips on R > 1+ L (similar to prior admission)); no calf tenderness Gastrointestinal (Abdomen): Inspection/Auscultation: abdomen normal to inspe ction and normal bowel sounds Percussion/Palpation: abdomen soft; abdomen nontender, no guarding and abdomen not rigid Musculoskeletal: Left knee effusion and pain resolved. No prepatellar celluliti s Skin: Diabetic ulcer on plantar aspect of right foot with open blister distal and lateral to ulcer. Does not appear to be connected. No pus. No cellulitis Neurologic: moves all extremities and awake; no focal motor deficits and not confused Speech / Cognition: normal speech Motor/Sensory: + sensory deficit (decreased sensation in feet bilateral but still has some feeling) Psychiatric: A+Ox3, euthymic affect Lymphatic: no inguinal lymphadenopathy Principal Diagnosis Hyperkalemia Diabetic Foot Ulcers Discharge Exam General: In NAD Neuro: A&O x 4 Pulm: CTAB equal breath sounds bilaterally CV: RRR, no m/r/g Abdomen:+BS, no TTP in all quadrants, non-distended LE: 1+ RLE edema, no calf TTP R foot: plantar 3rd metatarsal region callous/subcutaneous blister/bleeding - no tenderness to palpation of dorsal or plantar aspect of ulcer region; stage 2 pressure ulcer R heel L foot: no open skin / lesions noted Discharge Data Allergies Allergy/AdvReac Type Severity Reaction Status Date / Time No Known Allergies Allergy Verified 11/05/19 17:23 Consultations 11/05/19 17:28 ED Decision to Admit Stat 11/05/19 21:58 Consult Wound Care Provider Routine 11/06/19 08:13 Consult Orthopedic Surgery Routine Hospital Course (1) Chronic kidney disease, stage 4 (severe): (2) Type 1 diabetes mellitus: (3) Macrocytic anemia: (4) Gas gangrene: Diabetic foot ulcer - concern for gas gangrene on CT CT foot: diffuse ST edema, plantar ulceration 3rd metatarsal head, no osteomyelitis, drop of soft tissue gas dorsal concerning for gas forming infectious process Received vanc and zosyn in the ED WBC 6.1, afebrile On Cipro - continue outpatient Questionable based on images and exam as no evidence of gangrene and does not appear cellulitic; noted to be on dorsal aspect however no tenderness on exam of dorsal foot Ortho evaluaed: -non-urgent debriement recommended: Friday, outpatient follow up with Dr. Menchaca Continue Wound care Hyperkalemia: 2/2 RTA vs. possibly worsening CKD? No medications that pt is on appear to cause hyperkalemia (recently on prednisone and started on sodium bicarbonate), no dietary changes Cr 2.2, GFR 27 (no acute worsening as Cr 2.3 with GFR 26 on 10/13 when K was normal 4.6); hx of K elevation in the past 4.9-5.1 due to RTA Initially 6.2 - received calcium gluconate, and insulin 10 u with glucagon, miralax improved K to 5.4 No dysrhythmias noted Outpatient follow up with PCP and nephrology, repeat BMP on 11/07 Increased fatigue/weakness No associated cp, or sob on exertion Reported to be debilitating ECHO obtained - result pending on d/c Follow up with Dr. Welsh on ECHO results CKD4 - Diabetic Nephropathy Hx of RTA - started on Sodium Bicarbonate prior admission for concern of low bicarb GFR 27 Continue Sodium Bicarbonate DM1 Continue own insulin pump - well controlled Afib/Complete Heart Block/CAD/HFpEF Continue eliquis, pavix, atorvastatin, ISM Not on BB and diltiazem was stopped Remained HD stable Pacemaker in place Macrocytic Anemia - Anemia of chronic disease likely 2/2 CKD MCV 108 No known alcohol use Hx of gastric bypass Received iron infusions x 4 in September; normal folate/B12 levels Continue iron sulfate, B complex, MV, folic acid Recommend outpatient hematology follow up Hypothyroidism Continue synthroid GERD Continue pantoprazole (5) Acute hyperkalemia: (6) Chronic venous insufficiency: (7) Pressure ulcer, heel, right, unstageable: (8) Anemia of chronic disease: (9) Coronary artery disease: (10) Heart failure with preserved ejection fraction: (11) History of complete heart block: (12) Atrial fibrillation: (13) Dyslipidemia: (14) Diabetic neuropathy: (15) Renal tubular acidosis, type 4: Total Time Total Time Spent Total Time Spent (In Minutes): >30 mins Discharge Plan Discharge Items Patient Disposition: Home - Self-Care Reason For Visit: GANRENE Discharge Diagnosis: Hyperkalemia Diabetic Foot Ulcer Activity: Resume your previous activity Non-emergency contact: Primary Care Provider Call non-emergency contact if: you have any medication questions, your symptoms worsen, your pain is not controlled, you have a fever, your wound has increased redness, your wound has increased drainage and your wound pain has increased Follow-up/Referrals: Huy Menchaca DO [Surgeon] - (Call to schedule a follow up for 1 week after discharge.) Guanaco Esteban MD [Primary Care Provider] - Diet: Carb Count or DM1 Addtl Attending Provider Instructions: Mr. Blake you were admitted for concern of gas in your right foot ulcer which would have been concerning for worsening infection. However your imaging was reassuring and our orthopedist who evaluated you, Dr. Vazquez did not see the need for emergent surgery as your wound looked good on exam. Please follow the instructions below: Follow up with Dr. Menchaca at [facility] on 11/08/19 to schedule an outpatient visit for clean up of your foot ulcers Continue to take Ciprofloxacin as prescribed You were also found to have a high blood potassium level. We reviewed your history and medications and there does not seem to be an obvious cause for the higher potassium level. However, you do have chronic kidney disease and it could be a sign of worsening kidney function as your kidneys may not be getting rid of potassium as well as they should. This is likely given your potassium has been in the higher ranges prior to current hospitalization as well. Your potassium level improved from 6.2 to 5.4 during your admission. You preferred to leave and follow up outpatient even though your potassium did not normalize yet and you are still at risk of potential health rhythm complications. We felt your decision was somewhat reasonable given your potassium level was going down as long as you follow up closely with your primary care doctor and your fur drummer/kidney doctor. Please follow up with your primary care doctor tomorrow, 11/08/19 to recheck your potassium level Follow up with your fur drummer within a week as well Stop taking Celebrex as it can worsen your renal/kidney function Continue taking your other routine home medications as prescribed Of note: Given you were reporting significant fatigue lately, we also obtained a heart ultrasound, ECHO. The results are pending at this time. Please follow up with your pantry worker, Dr. Welsh to obtain your ECHO results Pending Studies at Discharge: Yes Studies:: ECHO results - follow up with Dr. Welsh Stand-Alone Forms: My [facility] Control de Pacientes, Smoking Cessation Medications and DC Order Prescriptions: Continued cholecalciferol (vitamin D3) 2,000 unit capsule 2,000 units PO HS RF: 0 cyanocobalamin (vitamin B-12) 1,000 mcg capsule 1,000 mcg PO HS RF: 0 magnesium oxide 400 mg capsule 400 mg PO HS RF: 0 (DME) Dexcom G5 Transmitter device See Dose Instructions .ROUTE .MEDSUPPLY Qty: 1 RF: 0 Eliquis 5 mg tablet 5 mg PO BID RF: 0 folic acid 800 mcg tablet 800 mcg PO HS RF: 0 acyclovir 400 mg tablet 400 mg PO HS RF: 0 calcium carb and citrate-vitD3 [Citracal-D3 Slow Release] 600 mg calcium- 500 unit Tablet Extended Release 1 tab PO HS RF: 0 clopidogrel [Plavix] 75 mg tablet 75 mg PO HS RF: 0 pantoprazole [Protonix] 40 mg tablet,delayed release (DR/EC) 40 mg PO QAM RF: 0 Renal Caps 1 mg capsule 1 cap PO HS RF: 0 sodium bicarbonate 650 mg Tablet 1,300 mg PO BID Qty: 120 RF: 5 ciprofloxacin HCl [Cipro] 250 mg tablet 250 mg PO BID RF: 0 nitroglycerin [Nitrostat] 0.4 mg tablet, sublingual 0.4 mg SL Q5M PRN (Reason: chest pain) RF: 0 furosemide [Lasix] 20 mg tablet 20 mg PO DAILY PRN (Reason: Weight Gain) RF: 0 insulin lispro [Humalog U-100 Insulin] 100 unit/mL solution 100 units continuous subcutaneous infusion DAILY RF: 0 levothyroxine [Synthroid] 112 mcg tablet 112 mcg PO QAM RF: 0 PreserVision AREDS-2 [id number] Capsule 1 tab PO BID RF: 0 atorvastatin [Lipitor] 80 mg Tablet 80 mg PO HS RF: 0 isosorbide mononitrate 60 mg tablet extended release 24 hr 60 mg PO BID RF: 0 ferrous sulfate 325 mg (65 mg iron) tablet,delayed release (DR/EC) 325 mg PO HS RF: 0 Discontinued celecoxib [Celebrex] 100 mg capsule 100 mg PO DAILY RF: 0 Discharge Orders: Discharge Order (Routine); Ordered 11/07/19 Ordered By: Robyn Monreal Admission Data Admit Date/Time: 11/05/19 20:11 Attending Provider: Zheng Berman Admit Provider: Den Burch Primary Care Provider: Guanaco Esteban Other Providers: Dejon Cedeno ; Maxx Hall ; Den Burch ; Garret Vazquez Other Interventions: Discharge Summary Assessment (RN) Last Done: 11/07/19 11:55 DC Date/Time DO NOT enter until pt leaves facility: 11/07/19 12:45 Supervising Physician Co-Signing Physician Notes I personally examined the patient and verified all gramajo points of history and exam, discussed case, and agree with decision making with Dr Monreal. d/w dr monreal several times. later also d/w dr welsh (who is pt's primary pantry worker, and will be reading echo) - pt himself feels ok and wants to go home. initially didn't want lab draw even though a cardinal reason for admission was his hyperkalemia. foot ok. vitals noted nad heent nc at mmm breathing unlabored no accessory muscles good effort skin shows no tracking erythema or crepitis on foot - examines essentially identical to yesterday foot ulcer - does not appear overtly cellulitic, certainly not gangrenous clinically. appreciate ortho input. continue cipro, continue wound care, safe for outpatient follow up hyperkalemia - notes that he does retain K w RTA. has improved to what he ntoes is a safe range, and while he did not want lab draw this morning, he is amenable to outpatient follow up of BMP even as soon as tomorrow. discussed highly likely that since he retains K he probably accidentally found his way into something more K rich than he realized. restrict K intake as best as possible, serial outpt labs. fatigue - nonspecific but sounds to be acute and oppressive. likely simply relates to comorbidities and recent run of health issues/deconditioning, but given that it only started last few days and fairly abruptly - echo checked - results pending - his primary pantry worker is on this weekend and will be reading it. pt safe/stable for outpt f/u - unfortunately after discussion w dr welsh the concern is that his pulm HTN is severe and progressive - knowing this, it's unfortunately likely that this/his cardiomyopathy progressing will likely be at least a large part of the culprit in his worsening fatigue. macrocytosis noted. uncertain differentials in light of normal B12, folate. may need hematology eval as outpt. follow in office otherwise as above, stable for home. Resident Activity Tracking Resident Involvement: Resident Care Provided Care Provided: Adult [facility] Medicine
--- NOTE | 2019-11-07 17:01 | Billing Data ---
Date of Service November 07, 2019 Coding Level of Care Code D/C Day Management >30 mins
== END 2019-11-07 12:45 | disposition home or self-care (01) | DRG 637 ==
LOC: ED 16:33 → 2N 20:11 → SUATTDRO 20:11 → 2N 20:49

== ENCOUNTER 2019-12-31 17:57 | Inpatient (IN) ==
[2019-12-31 18:28] LABS: Basophils # (auto) 0.05 K/uL (0-0.2); Basophils % (auto) 0.8 %; Eosinophils # (auto) 0.14 K/uL (0-0.5); Eosinophils % (auto) 2.3 %; Hematocrit (blood only) 30.1 % (42-52); Hemoglobin 10.1 g/dL (14.0-18.0); Immature Granulocytes # (auto) 0.02 K/uL (0.00-0.02); Immature Granulocytes % (auto) 0.3 %; Lymphocytes % (auto) 11.5 %; Mean Corpuscular Hemoglobin 33.7 pg (25-34); Mean Corpuscular Hgb Conc 33.6 g/dL (32-36); Mean Corpuscular Volume 100.3 fL (80-100); Mean Platelet Volume 9.2 fL (7.4-10.4); Monocytes # (auto) 0.94 K/uL (0.11-0.59); Monocytes % (auto) 15.5 %; Neutrophils # (auto) 4.23 K/uL (1.4-6.5); Neutrophils % (auto) 69.6 %; Platelet Count 169 K/uL (130-400); RDW Coefficient of Variation 14.6 % (11.5-14.5); RDW Standard Deviation 53.1 fL (36.4-46.3); White Blood Count 6.08 K/uL (4.8-10.8)
--- NOTE | 2019-12-31 18:54 | Emergency Department Note ---
History of Present Illness General Chief complaint: Abnormal Labs/Diagnostic Testing Stated complaint: ABD NORMAL LABS Time Seen by Provider: 12/31/19 18:34 Source: patient Limitations: no limitations History of Present Illness Provider complaint: High potassium Onset (ago): hour(s) (4 PM today) Severity: severe Pain Consistency: + other (Potassium 7.5) Relieved By: + none Associated symptoms: no chest pain, no cough, no fever/chills, no nausea/vomiting and no shortness of breath The patient is a 74-year-old male with a history of chronic kidney disease presenting with elevated potassium. The patient had a routine visit with his doctor today and had routine blood work done at 4 PM. He was called later at home and told to go immediately to the emergency department because his potassium was 7.5 and his creatinine was 2.9. Baseline creatinine is 2.1. The patient has no symptoms. He states he has been urinating normally. His blood sugars have been under control. He has had no palpitations, chest pain, shortness of breath, cough, fever, abdominal pain, vomiting, diarrhea or urinary symptoms. He does have a pacemaker and has a prior history of atrial fibrillation and is currently on Eliquis. He did have surgery to his right heel for osteomyelitis of the heel but on biopsy the bone did not show signs of osteomyelitis although he is on oral antibiotics. He is normally swollen. Home Medications Home Medications Medication Instructions Recorded Confirmed Type cholecalciferol (vitamin D3) 50 2,000 units PO HS 04/07/18 12/31/19 History mcg (2,000 unit) capsule cyanocobalamin (vitamin B-12) 1,000 mcg PO HS 04/07/18 12/31/19 History 1,000 mcg capsule magnesium oxide 400 mg PO HS cap 04/07/18 12/31/19 History apixaban 5 mg tablet 5 mg PO BID 12/31/18 12/31/19 History blood-glucose transmitter #1 ea 12/31/18 12/01/19 History PreserVision AREDS-2 1 tab PO BID 01/04/19 12/31/19 History folic acid 800 mcg tablet 800 mcg PO HS 01/29/19 12/31/19 History atorvastatin [Lipitor] 80 mg PO HS 02/01/19 12/31/19 History ferrous sulfate 325 mg PO HS 05/31/19 12/31/19 History isosorbide mononitrate 60 mg PO BID 05/31/19 12/31/19 History Renal Caps 1 cap PO HS 08/06/19 12/31/19 History acyclovir 400 mg PO HS 08/06/19 12/31/19 History calcium carb and citrate-vitD3 1 tab PO HS 08/06/19 12/31/19 History [Citracal-D3 Slow Release] pantoprazole [Protonix] 40 mg PO QAM 08/06/19 12/31/19 History furosemide [Lasix] 20 mg PO DAILY PRN 11/05/19 12/31/19 History insulin lispro [Humalog U-100 100 units CONTINUOUS SUBCUTANEOUS 11/05/19 12/31/19 History Insulin] INFUSION DAILY levothyroxine [Synthroid] 112 mcg PO QAM 11/05/19 12/31/19 History nitroglycerin [Nitrostat] 0.4 mg SL Q5M PRN 11/05/19 12/31/19 History sodium bicarbonate 650 mg tablet 650 mg PO BID #180 tab 12/01/19 12/31/19 Rx sulfamethoxazole-trimethoprim 1 tab PO Q12H #20 tab 12/17/19 12/31/19 Rx [Bactrim DS] Allergies Allergy/AdvReac Type Severity Reaction Status Date / Time No Known Allergies Allergy Verified 12/31/19 20:22 Past Med/Surg History Medical History Anemia (Chronic) Aortic stenosis s/p AVR (2012) Ascending aortic aneurysm under surveillance by Dr. Mendoza (stable since 2005) Basal cell carcinoma of left forehead (Resolved) CAD (coronary artery disease) IBRAHIMA (05/2019), + stent 2006, CABGx3 (1993) Chronic kidney disease, stage 4 (severe) follows with Dr. 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, managed with low dose furosemide Type 1 diabetes mellitus insulin pump Surgical History History of amputation of toe Right big toe partial amputation: 01/19/19: MAC sedation at [facility] History of aortic valve replacement 2012 History of appendectomy History of arthroscopy of left shoulder History of cardiac cath 05/2019 [facility] w/ 1 drug eluting stent 2017 - [place] - NO STENTS/ANGIOPLASTY 2007 - [facility] [place] - 1 STENT PLACED 2011 - [facility] [place] - NO STENTS 1993 --> CABG History of coronary artery bypass graft x 3 1993 History of cystoscopy W/ STONE EXTRACTION 03/20/17: LMA #5 History of esophagogastroduodenoscopy (EGD) History of gastric bypass 20 YEARS AGO - FOR DM History of hand surgery Lt History of inguinal hernia repair Rt 03/02/14: MAC #4, ETT #7.5, Oral, Grade 2 View History of laminectomy CERVICAL SPINE History of radiofrequency ablation procedure for cardiac arrhythmia History of tonsillectomy Hx of heart artery stent Presence of permanent cardiac pacemaker S/P left knee arthroscopy S/P right knee arthroscopy Status post endovenous radiofrequency ablation of saphenous vein Family History Father Coronary heart disease Myocardial infarction Brother Diabetes Mother Diabetes Cancer Denies family history of Colon cancer Ovarian cancer Prostate cancer Breast cancer Social History Smoking Status: Never smoker Second Hand Exposure: No; Hx Alcohol Use: No Hx Substance Use: No Preferred Language: Czech Communication Ability: Effective Visual Impairment: No Limitations 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: Normal Sap Bpc Architect Required: No Beliefs That Will Affect Care: None marital status: Current Living Situation: Spouse current occupational status: retired current occupation: Retired Feels Safe at Home: Yes Review of Systems See HPI for pertinent positives & negatives. and A total of 10 systems reviewed and were otherwise negative Physical Exam Vital Signs Vital Signs - 24 hr 12/31/19 18:00 12/31/19 19:20 12/31/19 20:41 Temperature 36.8 C Temperature Source Oral Pulse Rate 69 Pulse Rate [Apical] 70 70 Pulse Rhythm [Apical] Regular Respiratory Rate 18 18 16 Respiratory Effort / Characteristics Non-Labored Spontaneous Non-Labored Spontaneous Respiratory Depth Normal Normal Respiratory Pattern Regular Blood Pressure 173/83 H Blood Pressure [Right Arm] 166/77 H 176/88 H Blood Pressure Mean 113 Blood Pressure Mean [Right Arm] 106 117 Pulse Oximetry 99 100 97 Oxygen Delivery Method Room Air Room Air Room Air Sepsis Recent Fever Within 48 Hours No Sepsis New/Unexplained Change in Mental Status No Sepsis Action Taken by Nursing No Action Required 12/31/19 21:54 12/31/19 22:35 Temperature Temperature Source Pulse Rate 70 Pulse Rate [Apical] 70 Pulse Rhythm [Apical] Regular Respiratory Rate 16 16 Respiratory Effort / Characteristics Non-Labored Spontaneous Respiratory Depth Normal Respiratory Pattern Blood Pressure 179/98 H Blood Pressure [Right Arm] 173/79 H Blood Pressure Mean Blood Pressure Mean [Right Arm] 110 Pulse Oximetry 97 97 Oxygen Delivery Method Room Air Room Air Sepsis Recent Fever Within 48 Hours Sepsis New/Unexplained Change in Mental Status Sepsis Action Taken by Nursing Constitutional: Vital signs reviewed. Eyes: Pupils are equal round reactive to light. Conjunctiva are noninjected. ENT: Pharynx is clear without erythema or exudate. Mucous membranes are moist. Neck supple without meningeal signs. Respiratory: Clear to auscultation bilaterally. Breath sounds are equal bilaterally. Cardiovascular: Regular rate and rhythm. No rubs or gallops. GI: Soft, nondistended and nontender. Bowel sounds are present. Musculoskeletal: Edema to the right lower extremity with wound dressing in nikia ce. No calf tenderness. Integumentary: No cyanosis. or jaundice. Neurological: The patient is awake and alert. No focal deficits. Psychiatric: Normal affect. Not anxious appearing. Course Administered Medications Sodium Bicarbonate 150 meq/ (Sterile Water) 1,150 mls @ 250 mls/hr IV .[id number] [facility] Stop: 12/31/19 23:50 Last Admin: 12/31/19 19:55 Dose: 250 mls/hr Documented by: [id number] Discontinued Medications Albuterol (Ventolin 0.5% 2.5mg/0.5ml) 2.5 mg NEB NOW STA Stop: 12/31/19 19:00 Last Admin: 12/31/19 19:38 Dose: Not Given Documented by: [id number] Dextrose (Dextrose 50%) 50 ml IV NOW STA Stop: 12/31/19 19:00 Last Admin: 12/31/19 19:23 Dose: 50 ml Documented by: [id number] Dextrose (Dextrose 50%) 50 ml IV NOW ONE Stop: 12/31/19 19:37 Last Admin: 12/31/19 20:10 Dose: 50 ml Documented by: [id number] Calcium Gluconate 1,000 mg/ (Sodium Chloride) 60 mls @ 240 mls/hr IV NOW STA Stop: 12/31/19 19:13 Last Infusion: 12/31/19 19:55 Dose: 0 mls/hr Documented by: [id number] Admin: 12/31/19 19:38 Dose: 240 mls/hr Documented by: [id number] Insulin Human Regular (Novolin R U-100 Per Unit) 10 units IV NOW STA Stop: 12/31/19 19:00 Last Admin: 12/31/19 19:23 Dose: 10 units Documented by: [id number] Cosigned by: [id number] Insulin Human Regular (Novolin R U-100 Per Unit) 10 units IV NOW STA Stop: 12/31/19 19:37 Last Admin: 12/31/19 20:10 Dose: 10 units Documented by: [id number] Cosigned by: [id number] Patiromer (Veltassa) 8.4 gm PO NOW STA Stop: 12/31/19 19:28 Last Admin: 12/31/19 19:55 Dose: 8.4 gm Documented by: [id number] Critical Care Time Critical Care Time: Yes Total Critical Care Time: 50 I have personally spent approximately 50 minutes of critical care time in the direct management of this patient. This includes bedside care, interpretation of diagnostic studies, and testing, discussion with consultants, patient, and family members, and other required patient management activities. These minutes are in excess of all separately billable procedures. Medical Decision Making Differential Diagnosis Hyperkalemia, acute kidney injury, dehydration, metabolic derangement, hemolysis Medical Records Attestation: I reviewed the patient's medical records. The patient was seen by orthopedics last month for osteomyelitis of the right heel. Home Medications Current Medication List: was personally reviewed by me Laboratory Data Result diagrams: 12/31/19 18:19 12/31/19 21:00 Lab Results 12/31/19 12/31/19 12/31/19 Range/Units 18:19 18:19 20:14 WBC 6.08 (4.8-10.8) K/uL RBC 3.00 L (4.7-6.1) M/uL Hgb 10.1 L (14.0-18.0) g/dL Hct 30.1 L (42-52) % MCV 100.3 H (80-100) fL MCH 33.7 (25-34) pg MCHC 33.6 (32-36) g/dL RDW Std Deviation 53.1 H (36.4-46.3) fL RDW Coeff of Seferino 14.6 H (11.5-14.5) % Plt Count 169 (130-400) K/uL MPV 9.2 (7.4-10.4) fL Immature Gran % (Auto) 0.3 % Neut % (Auto) 69.6 % Lymph % (Auto) 11.5 % Preston % (Auto) 15.5 % Eos % (Auto) 2.3 % Baso % (Auto) 0.8 % Neut # (Auto) 4.23 (1.4-6.5) K/uL Lymph # (Auto) 0.70 L (1.2-3.4) K/uL Preston # (Auto) 0.94 H (0.11-0.59) K/uL Eos # (Auto) 0.14 (0-0.5) K/uL Baso # (Auto) 0.05 (0-0.2) K/uL Immature Gran # (Auto) 0.02 (0.00-0.02) K/uL Sodium 136 (136-145) mmol/L Potassium 7.2 H* (3.5-5.1) mmol/L Chloride 113 H (98-107) mmol/L Carbon Dioxide 17 L (21-32) mmol/L Anion Gap 7.0 (3-11) BUN 40 H (7-18) mg/dl Creatinine 2.82 H (0.6-1.4) mg/dl Est Cr Clr Drug Dosing Not Reportable Est GFR ( Amer) 24.1 Est GFR (Non-Af Amer) 20.8 BUN/Creatinine Ratio 14.3 (10-20) Glucose 93 (70-99) mg/dl POC Glucose 249 H (70-99) mg/dl Calcium 9.3 (8.5-10.1) mg/dl Total Bilirubin 0.9 (0.2-1) mg/dl AST 33 (15-37) U/L ALT 22 (12-78) U/L Alkaline Phosphatase 370 H (45-117) U/L Troponin I < 0.015 (0-0.045) ng/ml Total Protein 7.2 (6.4-8.2) gm/dl Albumin 3.1 L (3.4-5.0) gm/dl Globulin 4.1 H (2.5-4.0) gm/dl Albumin/Globulin Ratio 0.8 L (0.9-2) 12/31/19 Range/Units 21:00 WBC (4.8-10.8) K/uL RBC (4.7-6.1) M/uL Hgb (14.0-18.0) g/dL Hct (42-52) % MCV (80-100) fL MCH (25-34) pg MCHC (32-36) g/dL RDW Std Deviation (36.4-46.3) fL RDW Coeff of Seferino (11.5-14.5) % Plt Count (130-400) K/uL MPV (7.4-10.4) fL Immature Gran % (Auto) % Neut % (Auto) % Lymph % (Auto) % Preston % (Auto) % Eos % (Auto) % Baso % (Auto) % Neut # (Auto) (1.4-6.5) K/uL Lymph # (Auto) (1.2-3.4) K/uL Preston # (Auto) (0.11-0.59) K/uL Eos # (Auto) (0-0.5) K/uL Baso # (Auto) (0-0.2) K/uL Immature Gran # (Auto) (0.00-0.02) K/uL Sodium (136-145) mmol/L Potassium 6.4 H* (3.5-5.1) mmol/L Chloride (98-107) mmol/L Carbon Dioxide (21-32) mmol/L Anion Gap (3-11) BUN (7-18) mg/dl Creatinine (0.6-1.4) mg/dl Est Cr Clr Drug Dosing Est GFR ( Amer) Est GFR (Non-Af Amer) BUN/Creatinine Ratio (10-20) Glucose (70-99) mg/dl POC Glucose (70-99) mg/dl Calcium (8.5-10.1) mg/dl Total Bilirubin (0.2-1) mg/dl AST (15-37) U/L ALT (12-78) U/L Alkaline Phosphatase (45-117) U/L Troponin I (0-0.045) ng/ml Total Protein (6.4-8.2) gm/dl Albumin (3.4-5.0) gm/dl Globulin (2.5-4.0) gm/dl Albumin/Globulin Ratio (0.9-2) ECG Data Attestation: I personally reviewed and interpreted this ECG as follows: Indication: + other (Hyperkalemia) Rate (beats per minute): 70 Rhythm: + other (Ventricularly paced rhythm) ECG Intervals/blocks: + Normal QT ECG Findings: + Peaked T waves (Septal) Comparison ECG Date: from (August 06, 2019) Change: no significant change Blood Pressure Blood Pressure Findings: Elevated blood pressure Blood Pressure Disposition: Referred to patients primary care provider MDM Narrative I did evaluate the patient as noted above. The patient is asymptomatic but was sent here because his blood work showed a potassium of 7.5 and creatinine of 2.9. IV access was established. I did place an order for continuous cardiac monitoring. The monitor showed a paced rhythm at a rate of 70 bpm. I did order and personally review the patient's 12-lead EKG as described above. The patient has a ventricular paced rhythm with peaked T waves. I did compare this to 3 prior EKGs done in July, September and October of this year. They all had peaked T wave s at that time in the precordial leads. In July his potassium was within normal limits but the other 2 visits his potassium was elevated up to 5.9. I did review the patient's blood work as noted in the electronic medical record. His potassium is 7.2. Bicarb is 17. BUN is 40 with a creatinine of 2.82. He is anemic with a hemoglobin of 10. I did immediately treat the patient with calcium gluconate IV, insulin 10 units regular IV, dextrose 50 IV and started him on a bicarbonate drip. The patient states that he cannot have albuterol as it gave him a heart attack. I therefore canceled the nebulizer. The patient does state that he is making normal amounts of urine. I did discuss case with Dr. Coughlin and the telephonic case manager. I also spoke to Dr. Junior of neurology. He also spoke to Dr. Coughlin. The plan was to give the patient another dose of insulin 10 units and dextrose 50% 1 amp IV to the patient and to recheck his potassium in half an hour. Should his potassium come down to a reasonable degree they would admit him to the hospital otherwise he will be transferred to a facility capable of dialysis. He also recommended Veltassa which I ordered. I did order an additional 10 units of insulin IV and another amp of dextrose 50% IV. Repeat potassium was 6.4. I did reassess the patient multiple times. His blood sugar remained stable. Dr. Cuevas did admit the patient to the hospital. Impression & Plan Acute hyperkalemia, [id number] kidney injury, Anemia Discharge Plan Visit Data Chief Complaint: Abnormal Labs/Diagnostic Testing Stated Complaint: ABD NORMAL LABS ED Provider: Bryant Calzada Discharge Problem: Acute hyperkalemia, Flkcz-[id number] kidney injury, Anemia Patient Disposition: Admitted As Inpatient Discharge Instructions Interventions: ED Discharge Assessment Last Done: 12/31/19 22:35 Forms Stand Alone Forms: My [facility] [address] [employer] Cardiovascular Prescriptions Prescriptions: No Action cholecalciferol (vitamin D3) 2,000 unit capsule 2,000 units PO HS RF: 0 cyanocobalamin (vitamin B-12) 1,000 mcg capsule 1,000 mcg PO HS RF: 0 magnesium oxide 400 mg capsule 400 mg PO HS RF: 0 (DME) Dexcom G5 Transmitter device See Dose Instructions .ROUTE .MEDSUPPLY Qty: 1 RF: 0 Eliquis 5 mg tablet 5 mg PO BID RF: 0 sodium bicarbonate 650 mg tablet 650 mg PO BID Qty: 180 RF: 3 folic acid 800 mcg tablet 800 mcg PO HS RF: 0 acyclovir 400 mg tablet 400 mg PO HS RF: 0 calcium carb and citrate-vitD3 [Citracal-D3 Slow Release] 600 mg calcium- 500 unit Tablet Extended Release 1 tab PO HS RF: 0 pantoprazole [Protonix] 40 mg tablet,delayed release (DR/EC) 40 mg PO QAM RF: 0 Renal Caps 1 mg capsule 1 cap PO HS RF: 0 nitroglycerin [Nitrostat] 0.4 mg tablet, sublingual 0.4 mg SL Q5M PRN (Reason: chest pain) RF: 0 furosemide [Lasix] 20 mg tablet 20 mg PO DAILY PRN (Reason: Weight Gain) RF: 0 insulin lispro [Humalog U-100 Insulin] 100 unit/mL solution 100 units continuous subcutaneous infusion DAILY RF: 0 levothyroxine [Synthroid] 112 mcg tablet 112 mcg PO QAM RF: 0 PreserVision AREDS-2 [id number]-sw-mg Capsule 1 tab PO BID RF: 0 atorvastatin [Lipitor] 80 mg Tablet 80 mg PO HS RF: 0 isosorbide mononitrate 60 mg tablet extended release 24 hr 60 mg PO BID RF: 0 ferrous sulfate 325 mg (65 mg iron) tablet,delayed release (DR/EC) 325 mg PO HS RF: 0 sulfamethoxazole-trimethoprim [Bactrim DS] 800-160 mg tablet 1 tab PO Q12H Qty: 20 RF: 0 Referrals Referrals: Guanaco Esteban MD [Primary Care Provider] - Discharge Problem: [id number]-[id number] kidney injury Qualifiers: Acute renal failure type: unspecified Chronic kidney disease stage: unspecified stage Qualified Code(s): N17.9 - Acute kidney failure, unspecified Anemia Qualifiers: Anemia type: due to chronic kidney disease Chronic kidney disease stage: unspecified stage Qualified Code(s): N18.9 - Chronic kidney disease, unspecified
[2019-12-31 18:57] LABS: Alanine Aminotransferase 22 U/L (12-78); Albumin Globulin Ratio 0.8 (0.9-2); Albumin Level 3.1 gm/dl (3.4-5.0); Alkaline Phosphatase 370 U/L (45-117); Aspartate Aminotransferase 33 U/L (15-37); BUN Creatinine Ratio 14.3 (10-20); Bilirubin,Total 0.9 mg/dl (0.2-1); Blood Urea Nitrogen 40 mg/dl (7-18); Calcium 9.3 mg/dl (8.5-10.1); Carbon Dioxide 17 mmol/L (21-32); Chloride 113 mmol/L (98-107); Est GFR (African American) 24.1; Est GFR (Non-African American) 20.8; Globulin 4.1 gm/dl (2.5-4.0); Glucose 93 mg/dl (70-99); Potassium 7.2 mmol/L (3.5-5.1); Sodium 136 mmol/L (136-145); Total Protein 7.2 gm/dl (6.4-8.2); Troponin I < 0.015 ng/ml (0-0.045)
[2019-12-31] MEDS ORDERED: NovoLIN-R INSULIN PER UNIT CHARGE IV STA ×2 (18:59→19:36)
[2019-12-31] MEDS ORDERED: ALBUTEROL 0.5% NEB SOLN 2.5 MG/0.5 ML VIAL NEB STA (18:59)
[2019-12-31] MEDS ORDERED: CALCIUM GLUCONATE 10% 1,000 MG in SODIUM CHLORIDE 0.9% 50 ML IV STA (18:59)
[2019-12-31] MEDS ORDERED: DEXTROSE 50% 50 ML SYRINGE IV STA (18:59)
[2019-12-31] MEDS ORDERED: SODIUM BICARBONATE 8.4% 150 MEQ in WATER, STERILE 1,000 ML IV SCH (19:15)
[2019-12-31] MEDS ORDERED: PATIROMER CALCIUM SORBITEX 8.4 GM PACK PO STA (19:27)
[2019-12-31] MEDS ORDERED: DEXTROSE 50% 50 ML SYRINGE IV ONE (19:36)
--- NOTE | 2019-12-31 22:36 | History & Physical Report ---
Date of Service December 31, 2019 Assessment & Plan (1) Acute hyperkalemia: Pt is a 74 yo gentleman with a complicated PMHx of DMI, CKD stage 4, HFpEF, Atrial fibrillation, HLD, Hypothyroidism, GERD and recent debridement of a diabetic foot ulcer who was admitted with hyperkalemia (K+ of 7.2). Hyperkalemia -Pt has Hx of this in the past, secondary to RTA -Currently, on Bactrim for 2 weeks for treatment of a diabetic foot ulcer in the setting of CKD. Likely the cause of this added potassium increase. -On presentation, K+ of 7.2. Receiving treatment with Insulin 10U IV and D50, also V[place] in the ED -Continue sodium bicarbonate drip -Also received calcium gluconate for cardioprotection -No dysrhythmias currently noted -Glucose and potassium checks as needed after D50 and insulin administration only Diabetic foot ulcer -Pt had right heel debrided on 12/17/2019 with bone biopsy -concern for osteomyelitis, outpatient treatment currently with Bactrim. -Bactrim held this visit given hyperkalemia above -consult placed to Dr. 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 -Hold nephrotoxic meds this visit such as his Lasix (see below) DM1 -Continue own insulin pump -ISS Afib/Complete Heart Block/CAD/HFpEF -Hx of ablation therapy in [place] in October 2018 for atiral fibrillation -Echo October 2019: Diastolic dysfunction, LVH, EF 50-55% -Continue home eliquis 5mg BID, plavix 75mg, atorvastatin 80mg, ISM 60mg BID -Pacemaker in place Hypothyroidism -Continue home synthroid 112mcg GERD Continue home pantoprazole 40mg daily FEN/GI: renal dialysis diet, NaHCO3 running at 250mls/hr DVT prophylaxis: On home Eliquis CODE STATUS: Full code Dispo: PCU/tele History of Present Illness Primary Care Provider: Guanaco Esteban MD Pt is a 74 yo gentleman with a complicated PMHx of DMI, CKD stage 4, HFpEF, Atrial fibrillation, HLD, Hypothyroidism, GERD and recent debridement of a diabetic foot ulcer who was admitted with hyperkalemia (K+ of 7.2). 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 Mendoza and had some bloodwork done. His potassium was noted to be elevated and he was called and told to present to the ED. Denies any palpitations, SOB, chest pain, syncope or dizziness. States he has been on Bactrim for treatment of possible osteomyelitis after having a diabetic right heel ulcer debrided last month. Allergies Allergy/AdvReac Type Severity Reaction Status Date / Time No Known Allergies Allergy Verified 12/31/19 20:22 Home Medications Home Medications Medication Instructions Recorded Confirmed Type cholecalciferol (vitamin D3) 50 2,000 units PO HS 04/07/18 12/31/19 History mcg (2,000 unit) capsule cyanocobalamin (vitamin B-12) 1,000 mcg PO HS 04/07/18 12/31/19 History 1,000 mcg capsule magnesium oxide 400 mg PO HS cap 04/07/18 12/31/19 History apixaban 5 mg tablet 5 mg PO BID 12/31/18 12/31/19 History blood-glucose transmitter #1 ea 12/31/18 12/01/19 History PreserVision AREDS-2 1 tab PO BID 01/04/19 12/31/19 History folic acid 800 mcg tablet 800 mcg PO HS 01/29/19 12/31/19 History atorvastatin [Lipitor] 80 mg PO HS 02/01/19 12/31/19 History ferrous sulfate 325 mg PO HS 05/31/19 12/31/19 History isosorbide mononitrate 60 mg PO BID 05/31/19 12/31/19 History Renal Caps 1 cap PO HS 08/06/19 12/31/19 History acyclovir 400 mg PO HS 08/06/19 12/31/19 History calcium carb and citrate-vitD3 1 tab PO HS 08/06/19 12/31/19 History [Citracal-D3 Slow Release] pantoprazole [Protonix] 40 mg PO QAM 08/06/19 12/31/19 History furosemide [Lasix] 20 mg PO DAILY PRN 11/05/19 12/31/19 History insulin lispro [Humalog U-100 100 units CONTINUOUS SUBCUTANEOUS 11/05/19 12/31/19 History Insulin] INFUSION DAILY levothyroxine [Synthroid] 112 mcg PO QAM 11/05/19 12/31/19 History nitroglycerin [Nitrostat] 0.4 mg SL Q5M PRN 11/05/19 12/31/19 History sodium bicarbonate 650 mg tablet 650 mg PO BID #180 tab 12/01/19 12/31/19 Rx sulfamethoxazole-trimethoprim 1 tab PO Q12H #20 tab 12/17/19 12/31/19 Rx [Bactrim DS] Past Med/Surg History Medical History Anemia (Chronic) Aortic stenosis s/p AVR (2012) Ascending aortic aneurysm under surveillance by Dr. Mendoza (stable since 2005) Basal cell carcinoma of left forehead (Resolved) CAD (coronary artery disease) IBRAHIMA (05/2019), + stent 2006, CABGx3 (1993) Chronic kidney disease, stage 4 (severe) [place] with Dr. 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, managed with low dose furosemide Type 1 diabetes mellitus insulin pump Surgical History History of amputation of toe Right big toe partial amputation: 01/19/19: MAC sedation at [facility] History of aortic valve replacement 2012 History of appendectomy History of arthroscopy of left shoulder History of cardiac cath 05/2019 [facility] w/ 1 drug eluting stent 2016 - [place] - NO STENTS/ANGIOPLASTY 2006 - [facility] [place] - 1 STENT PLACED 2011 - [facility] [place] - NO STENTS 1993 --> CABG History of coronary artery bypass graft x 3 1993 History of cystoscopy W/ STONE EXTRACTION 03/20/17: LMA #5 History of esophagogastroduodenoscopy (EGD) History of gastric bypass 20 YEARS AGO - FOR DM History of hand surgery Lt History of inguinal hernia repair Rt 03/02/14: MAC #4, ETT #7.5, Oral, Grade 2 View History of laminectomy CERVICAL SPINE History of radiofrequency ablation procedure for cardiac arrhythmia History of tonsillectomy Hx of heart artery stent Presence of permanent cardiac pacemaker S/P left knee arthroscopy S/P right knee arthroscopy Status post endovenous radiofrequency ablation of saphenous vein Family History Father Coronary heart disease Myocardial infarction Brother Diabetes Mother Diabetes Cancer Denies family history of Colon cancer Ovarian cancer Prostate cancer Breast cancer Social History Smoking Status: Never smoker Second Hand Exposure: No; Do You Dip or Chew Tobacco: No; Hx Alcohol Use: No Hx Substance Use: No Preferred Language: Bahamian Communication Ability: Effective Visual Impairment: No Limitations 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: Normal 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 Beliefs That Will Affect Care: None marital status: Current Living Situation: Spouse current occupational status: retired current occupation: Retired Other Information That Helps Us Care for You: No Feels Safe at Home: Yes Safety Concerns: Feels Safe At This Time Review of Systems Constitutional: no fever, no chills, no sweats, no fatigue and no weakness Eyes: no problem reported Ear, Nose, Mouth, Throat: no nasal congestion and no sore throat Respiratory: no cough and no dyspnea Cardiovascular: + edema; no chest pain, no dyspnea and no palpitations Gastrointestinal: no abdominal pain, no nausea, no vomiting, no constipation and no diarrhea/loose stools Genitourinary: no dysuria Integumentary: + wounds (abrasion on back) Neurologic: no headache(s) and no confusion Psychiatric: no confusion Endocrine: no fatigue Physical Exam Physical Exam: General: Alert, oriented. No acute distress Skin: Abrasion on back Psych: Appropriate mood and affect Neuro: No gross deficits HEENT: NC/AT, PERRLA, EOMI, oropharynx moist. Chest: Nontender to palpation. CV: RRR, Normal s1, s2. No murmurs appreciated Resp: Breath sounds clear bilaterally, no increased effort of breathing. No crackles/rhonchi/rales. Abdomen: Soft, nontender, nondistended. No guarding. No organomegaly appreciated. Extremities: Trace edema in lower extremities bilaterally. Right foot bandaged. Results & Data Results & Data ([facility]) Vital Signs (Past 12 Hours) Vital Signs Temp Pulse Pulse Resp BP BP Pulse Ox 12/31/19 21:54 70 16 173/79 H 97 12/31/19 20:41 70 16 176/88 H 97 12/31/19 19:20 70 18 166/77 H 100 12/31/19 18:00 36.8 C 69 18 173/83 H 99 Supervising Physician Co-Signing Physician Notes Attending addendum: I have physically seen this patient, have supervised the medical residents activities, and agree with the H&P unless as otherwise noted. Assessment and Plan: Acute hyperkalemia/acute on chronic kidney disease/RTA type IV- Hold Bactrim. Continue with bicarbonate drip, amps of D50 followed by 10 regular insulin IV and calcium gluconate. Follow serial BMP and magnesium levels Vital signs are stable, and cardiac monitoring is normal. Consult nephrology Dr. Salinas Diabetic foot ulcer- Negative recent biopsy on 12/17/2019 We will need to hold Bactrim due to current issues with hyperkalemia Consult Dr. Menchaca, from [facility], who has been managing the patient. Diabetes mellitus type 1- And coverage per his own scale. Continue on insulin pump May hold pump during times of D50 and regular insulin IV boluses Remainder of orders and notations as noted Resident Activity Tracking Resident Involvement: Resident Care Provided Care Provided: Adult Hospital Medicine
[2019-12-31] MEDS ORDERED: CARBOHYDRATES FOR HYPOGLYCEMIA PO PRN (23:16)
[2019-12-31] MEDS ORDERED: GLUCAGON FOR INJ 1 MG VIAL SQ PRN (23:16)
[2019-12-31] MEDS ORDERED: GLUCOSE 40% GEL 15 GM TUBE PO PRN (23:16)
[2019-12-31] MEDS ORDERED: NITROGLYCERIN SL 0.4 MG/TAB TAB SL PRN (23:16)
[2019-12-31] MEDS ORDERED: GLUCOSE 10 TABS/TUBE PO PRN (23:16)
[2019-12-31] MEDS ORDERED: DEXTROSE 50% 50 ML SYRINGE IV PRN (23:16)
[2019-12-31 23:27] LABS: Appearance Urine Clear (Clear); Bacteria Urine Automated Negative (Negative); Bilirubin Urine Negative (Negative); Blood Urine Negative (Negative); Cast Urine Automated 0 /lpf (0-5); Color Urine Yellow; Glucose Urine UA Negative (Negative); Ketones Urine Negative (Negative); Leukocyte Esterase Urine Negative (Negative); Nitrite Urine Negative (Negative); Protein Urine 1+ (Negative); RBC Urine Automated 0-4 /hpf (0-4); Specific Gravity Urine 1.015 (1.000-1.030); Urobilinogen Urine Negative (Negative); pH Urine 6.5 (4.5-7.5)
[2020-01-01] MEDS: SODIUM BICARBONATE 8.4% 150 MEQ in WATER, STERILE 1,000 ML IV SCH ×3 (00:10→22:45)
[2020-01-01] MEDS: APIXABAN 5 MG TABLET PO SCH ×3 (00:30→21:32)
[2020-01-01] MEDS ORDERED: DEXTROSE 50% 50 ML SYRINGE IV STA (01:17)
[2020-01-01] MEDS ORDERED: INSULIN HUMAN REGULAR PER UNIT 10 UNITS in SYRINGE 9.9 ML IV ONE (01:17)
[2020-01-01 03:04] LABS: Potassium 6.1 mmol/L (3.5-5.1)
[2020-01-01] MEDS: LEVOTHYROXINE SODIUM 112 MCG TABLET PO SCH (05:38)
[2020-01-01 06:10] LABS: Basophils # (auto) 0.03 K/uL (0-0.2); Basophils % (auto) 0.7 %; Eosinophils # (auto) 0.16 K/uL (0-0.5); Eosinophils % (auto) 3.5 %; Hematocrit (blood only) 28.1 % (42-52); Hemoglobin 9.4 g/dL (14.0-18.0); Immature Granulocytes # (auto) 0.01 K/uL (0.00-0.02); Immature Granulocytes % (auto) 0.2 %; Lymphocytes # (auto) 0.57 K/uL (1.2-3.4); Lymphocytes % (auto) 12.6 %; Mean Corpuscular Hemoglobin 33.2 pg (25-34); Mean Corpuscular Hgb Conc 33.5 g/dL (32-36); Mean Corpuscular Volume 99.3 fL (80-100); Mean Platelet Volume 9.2 fL (7.4-10.4); Monocytes # (auto) 0.86 K/uL (0.11-0.59); Monocytes % (auto) 19.1 %; Neutrophils # (auto) 2.88 K/uL (1.4-6.5); Neutrophils % (auto) 63.9 %; Platelet Count 148 K/uL (130-400); RDW Coefficient of Variation 14.4 % (11.5-14.5); Red Blood Count 2.83 M/uL (4.7-6.1); White Blood Count 4.51 K/uL (4.8-10.8)
[2020-01-01 06:34] LABS: Albumin Level 2.7 gm/dl (3.4-5.0); BUN Creatinine Ratio 15.2 (10-20); Calcium 8.4 mg/dl (8.5-10.1); Creatinine Clr Calc Pharmacy 24.9 ml/min; Est GFR (African American) 27.1; Est GFR (Non-African American) 23.4; Magnesium 1.5 mg/dl (1.8-2.4); Potassium 6.6 mmol/L (3.5-5.1)
[2020-01-01 06:56] LABS: Albumin Globulin Ratio 0.7 (0.9-2); Bilirubin,Total 0.9 mg/dl (0.2-1); Globulin 3.7 gm/dl (2.5-4.0); Total Protein 6.4 gm/dl (6.4-8.2)
[2020-01-01] MEDS ORDERED: INSULIN ASPART 100 UNITS/ML 3 ML PEN SC SCH (07:30)
[2020-01-01] MEDS: PANTOprazole 40 MG TAB PO SCH (08:10)
[2020-01-01] MEDS: ISOSORBIDE MONO EXTENDED REL 60 MG TABCR PO SCH ×2 (08:10→21:32)
[2020-01-01] MEDS ORDERED: FUROSEMIDE 20 MG in SYRINGE 0 ML IV ONE (10:00)
--- NOTE | 2020-01-01 10:11 | Orthopedic Consultation ---
Date of Consultation January 01, 2020 Assessment & Plan (1) Acute osteomyelitis of right calcaneus: I discussed the patient's case with John Ervin PA-C, they would like to continue with current recommendations nonweightbearing right lower extremity, daily dressing changes, PICC line and IV antibiotics, consultation with [facility] infectious disease for antibiotic recommendations. The patient has a follow-up appointment in [address] Menchaca's team. Thank you for the consultation History of Present Illness Reason for Consultation: Postoperative right heel diabetic ulcer I&D Attending Physician: Kecia Young DO History of Present Illness The patient is a 74-year-old male with recent past surgical history for irrigation debridement of right heel diabetic ulcer by Dr. Menchaca on 12/17/2019. Patient was discharged on oral antibiotics and was seen this past week at his two-week postoperative follow-up appointment by John Ervin PA-C, due to persistent of infection it was decided that the patient be started on IV antibiotics and they were in touch with [facility] on 12/31/2019. Subsequently the patient was seen by his primary care provider and found to be hyperkalemic with ROMA and was sent to [facility] for further inpatient observation and treatment. Denies F/C/N/V/SOB/CP. Allergies Allergy/AdvReac Type Severity Reaction Status Date / Time No Known Allergies Allergy Verified 12/31/19 20:22 Home Medications Home Medications Medication Instructions Recorded Confirmed Type cholecalciferol (vitamin D3) 50 2,000 units PO HS 04/07/18 12/31/19 History mcg (2,000 unit) capsule cyanocobalamin (vitamin B-12) 1,000 mcg PO HS 04/07/18 12/31/19 History 1,000 mcg capsule magnesium oxide 400 mg PO HS cap 04/07/18 12/31/19 History apixaban 5 mg tablet 5 mg PO BID 12/31/18 12/31/19 History blood-glucose transmitter #1 ea 12/31/18 12/01/19 History PreserVision AREDS-2 1 tab PO BID 01/04/19 12/31/19 History folic acid 800 mcg tablet 800 mcg PO HS 01/29/19 12/31/19 History atorvastatin [Lipitor] 80 mg PO HS 02/01/19 12/31/19 History ferrous sulfate 325 mg PO HS 05/31/19 12/31/19 History isosorbide mononitrate 60 mg PO BID 05/31/19 12/31/19 History Renal Caps 1 cap PO HS 08/06/19 12/31/19 History acyclovir 400 mg PO HS 08/06/19 12/31/19 History calcium carb and citrate-vitD3 1 tab PO HS 08/06/19 12/31/19 History [Citracal-D3 Slow Release] pantoprazole [Protonix] 40 mg PO QAM 08/06/19 12/31/19 History furosemide [Lasix] 20 mg PO DAILY PRN 11/05/19 12/31/19 History insulin lispro [Humalog U-100 100 units CONTINUOUS SUBCUTANEOUS 11/05/19 12/31/19 History Insulin] INFUSION DAILY levothyroxine [Synthroid] 112 mcg PO QAM 11/05/19 12/31/19 History nitroglycerin [Nitrostat] 0.4 mg SL Q5M PRN 11/05/19 12/31/19 History sodium bicarbonate 650 mg tablet 650 mg PO BID #180 tab 12/01/19 12/31/19 Rx sulfamethoxazole-trimethoprim 1 tab PO Q12H #20 tab 12/17/19 12/31/19 Rx [Bactrim DS] Patient History Medical History Anemia (Chronic) Aortic stenosis s/p AVR (2012) Ascending aortic aneurysm under surveillance by Dr. Mendoza (stable since 2005) Basal cell carcinoma of left forehead (Resolved) CAD (coronary artery disease) IBRAHIMA (05/2019), + stent 2006, CABGx3 (1993) Chronic kidney disease, stage 4 (severe) follows with Dr. 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 CKD, managed with low dose furosemide Type 1 diabetes mellitus insulin pump Surgical History History of amputation of toe Right big toe partial amputation: 01/19/19: MAC sedation at [facility] History of aortic valve replacement 2012 History of appendectomy History of arthroscopy of left shoulder History of cardiac cath 05/2019 w/ 1 drug eluting stent 2017 - [place] - [place] STENTS/ANGIOPLASTY 2007 - [facility] [place] - 1 STENT PLACED 2011 - [facility] [place] - NO STENTS 1993 --> CABG History of coronary artery bypass graft x 3 1993 History of cystoscopy W/ STONE EXTRACTION 03/20/17: LMA #5 History of esophagogastroduodenoscopy (EGD) History of gastric bypass 20 YEARS AGO - FOR DM History of hand surgery Lt History of inguinal hernia repair Rt 03/02/14: MAC #4, ETT #7.5, Oral, Grade 2 View History of laminectomy CERVICAL SPINE History of radiofrequency ablation procedure for cardiac arrhythmia History of tonsillectomy Hx of heart artery stent Presence of permanent cardiac pacemaker S/P left knee arthroscopy S/P right knee arthroscopy Status post endovenous radiofrequency ablation of saphenous vein Family History Father Coronary heart disease Myocardial infarction Brother Diabetes Mother Diabetes Cancer Denies family history of Colon cancer Ovarian cancer Prostate cancer Breast cancer Social History Smoking Status: Never smoker Second Hand Exposure: No; Do You Dip or Chew Tobacco: No; Hx Alcohol Use: No Hx Substance Use: No Preferred Language: Georgian Communication Ability: Effective Visual Impairment: No Limitations 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: Normal 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 Beliefs That Will Affect Care: None marital status: Current Living Situation: Spouse current occupational status: retired current occupation: Retired Other Information That Helps Us Care for You: No Feels Safe at Home: Yes Safety Concerns: Feels Safe At This Time Review of Systems Review of Systems: All systems reviewed & are unremarkable except as noted in HPI & below Constitutional: as per Subjective / HPI Physical Exam Physical Exam: RLE NVSI at baseline, compartment soft nontender, +2 dorsalis pedis pulse, 2-1/2 x 2 and half centimeter heel ulceration, scant dried drainage on dressing, no janine-incisional erythema, no cellulitis. Constitutional: WD/WN, vitals as above Results & Data ([facility]) Vital Signs (Past 12 Hours) Vital Signs Temp Pulse Pulse Resp BP BP BP 01/01/20 07:36 36.5 C 70 18 172/90 H 01/01/20 03:50 36.7 C 69 18 138/71 12/31/19 23:42 70 12/31/19 23:36 36.7 C 70 20 160/68 H 12/31/19 23:04 36.7 C 70 20 177/71 H 12/31/19 22:35 70 16 179/98 H Pulse Ox 01/01/20 07:36 99 01/01/20 03:50 99 12/31/19 23:42 12/31/19 23:36 99 12/31/19 23:04 100 12/31/19 22:35 97
--- NOTE | 2020-01-01 10:15 | Electrocardiogram Report ---
Test Reason : Blood Pressure : / mmHG Vent. Rate : 070 BPM Atrial Rate : 077 BPM P-R Int : 000 ms QRS Dur : 168 ms QT Int : 442 ms P-R-T Axes : 000 120 -42 degrees QTc Int : 477 ms Ventricular-paced rhythm Abnormal ECG When compared with ECG of 05-NOV-2019 18:06, No significant change was found Confirmed by Nagi Redding ([id number]) on 01/01/2020 10:14:58 AM Referred By: REFERRED SELF Confirmed By:Timur Redding
[2020-01-01 10:22] LABS: BUN Creatinine Ratio 14.6 (10-20); Calcium 8.6 mg/dl (8.5-10.1); Creatinine Clr Calc Pharmacy 24.7 ml/min; Est GFR (African American) 26.7; Potassium 5.9 mmol/L (3.5-5.1)
--- NOTE | 2020-01-01 13:10 | Nephrology Consultation ---
Date of Consultation January 01, 2020 Assessment & Plan (1) Acute hyperkalemia: Improving with medical management. Attributed to RTA and use of Bactrim. Low K diet. Furosemide 20 mg IV provided today. Repeat metabolic profile scheduled for this afternoon. Additional Patiromer can be provided at 24 hours as needed. Remains on tele monitor. Continue HCO3 replacement for metabolic acidosis (RTA 4). (2) Wtigk-lu-wykwhax kidney injury: BP and volume status are acceptable. Potassium improving. Non-oliguric. Appears to be volume mediated due to dehydration. IVF stopped after current infusion complete. Document I/O's. Repeat metabolic profile this AM. Creatinine peaked on admission and starting to trend down. Baseline creatinine ~2.3 mg/dL. UA/microscopy +1 protein but otherwise bland and acellular. No renal imaging this admission. Medications appropriately dosed for kidney function. Avoid Bactrim. No LINDA/ARB. No NSAIDS. (3) Anemia: Chronic. Treated with IV iron in the past. History of LGIB in the past. Will monitor. No need for PREETHI therapy at this time. Update iron profile with next blood work. (4) Melena: Denies current symptoms. Evaluated during prior admission. (5) Secondary hyperparathyroidism: Managed with vitamin D therapy. No acute indication to adjust treatment. (6) Heart failure with preserved ejection fraction: Euvolemic. Furosemide 20 mg IV provided today to encourage kaliuresis. (7) Osteomyelitis: Ortho consult reviewed. Avoid Bactrim. Antibiotic therapy per ID. History of Present Illness Reason for Consultation: ROMA/hyperkalemia Requesting Physician: Kecia Young DO Attending Physician: Kecia Young DO History of Present Illness Mr. Talon Blake is a 74 year-old male with chronic kidney disease III attributed to diabetic nephropathy. He follows in the outpatient clinic with Dr. Bridges. The patient was seen in the outpatient clinic last month. At that time, creatinine was at baseline ~2.3 mg/dL. 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 Vogel, + retinopathy), obesity s/p gastric bypass surgery 1999 at [facility], carotid stenosis, ASCVD s/p CABG x3 and AVR, thoracic aortic aneurysm, intermittent atrial fibrillation, kidney stones, hypothyroidism, R great toe amputation 01/11 due to osteomyelitis, pulmonary HTN. Mr Blake was recently hospitalized w/ pseudogout of the R knee. He has a chronic lesion with osteomyelitis of the right calcaneus for which he was placed on Bactrim as an outpatient. Mr. Blake has a significant history of ASCVD. He underwent a cath at [facility] 03/13 and 06/14 (99% stenosis of branch vessel with PCI. He follows in the cardiology clinic with Dr. Mendoza. Dr. Mendoza referred the patient to the ER yesterday due to abnormal laboratory findings including hyperkalemia and ROMA. Initial laboratory studies notable for a potassium of 7.2 mmol/L. Mild metabolic acidosis and elevated serum creatinine. Mr. Blake has been non-oliguric and tolerating an infusion of IV NaHCO3. No acute EKG findings appreciated. Chronic hyperkalemia noted. Bactrim held. Patiromer provided yesterday in the ER. The patient was seen and evaluated this morning with Dr. Young at the bedside. Plan of care was reviewed in detail. I discussed the plan of care with the ED physician and hospitalist yesterday evening as well. At the time of my evaluation this morning, Mr. Blake felt well. He has no complaints. He hopes to be discharged home this weekend. He denies significant dietary potassium intake. Allergies Allergy/AdvReac Type Severity Reaction Status Date / Time No Known Allergies Allergy Verified 12/31/19 20:22 Home Medications Home Medications Medication Instructions Recorded Confirmed Type cholecalciferol (vitamin D3) 50 2,000 units PO HS 04/07/18 12/31/19 History mcg (2,000 unit) capsule cyanocobalamin (vitamin B-12) 1,000 mcg PO HS 04/07/18 12/31/19 History 1,000 mcg capsule magnesium oxide 400 mg PO HS cap 04/07/18 12/31/19 History apixaban 5 mg tablet 5 mg PO BID 12/31/18 12/31/19 History blood-glucose transmitter #1 ea 12/31/18 12/01/19 History PreserVision AREDS-2 1 tab PO BID 01/04/19 12/31/19 History folic acid 800 mcg tablet 800 mcg PO HS 01/29/19 12/31/19 History atorvastatin [Lipitor] 80 mg PO HS 02/01/19 12/31/19 History ferrous sulfate 325 mg PO HS 05/31/19 12/31/19 History isosorbide mononitrate 60 mg PO BID 05/31/19 12/31/19 History Renal Caps 1 cap PO HS 08/06/19 12/31/19 History acyclovir 400 mg PO HS 08/06/19 12/31/19 History calcium carb and citrate-vitD3 1 tab PO HS 08/06/19 12/31/19 History [Citracal-D3 Slow Release] pantoprazole [Protonix] 40 mg PO QAM 08/06/19 12/31/19 History furosemide [Lasix] 20 mg PO DAILY PRN 11/05/19 12/31/19 History insulin lispro [Humalog U-100 100 units CONTINUOUS SUBCUTANEOUS 11/05/19 12/31/19 History Insulin] INFUSION DAILY levothyroxine [Synthroid] 112 mcg PO QAM 11/05/19 12/31/19 History nitroglycerin [Nitrostat] 0.4 mg SL Q5M PRN 11/05/19 12/31/19 History sodium bicarbonate 650 mg tablet 650 mg PO BID #180 tab 12/01/19 12/31/19 Rx sulfamethoxazole-trimethoprim 1 tab PO Q12H #20 tab 12/17/19 12/31/19 Rx [Bactrim DS] Patient History Medical History Anemia (Chronic) Aortic stenosis s/p AVR (2012) Ascending aortic aneurysm under surveillance by Dr. Mendoza (stable since 2005) Basal cell carcinoma of left forehead (Resolved) CAD (coronary artery disease) IBRAHIMA (05/2019), + stent 2006, CABGx3 (1993) Chronic kidney disease, stage 4 (severe) [place] 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 w/ 1 drug eluting stent 2017 [place] STENTS/ANGIOPLASTY 2007 - [facility] [place] - 1 STENT PLACED 2012 - [facility] - NO STENTS 1993 --> CABG History of coronary artery bypass graft x 3 1993 History of cystoscopy W/ STONE EXTRACTION 03/20/17: LMA #5 History of esophagogastroduodenoscopy (EGD) History of gastric bypass 20 YEARS AGO - FOR DM History of hand surgery Lt History of inguinal hernia repair Rt 03/02/14: MAC #4, ETT #7.5, Oral, Grade 2 View History of laminectomy CERVICAL SPINE History of radiofrequency ablation procedure for cardiac arrhythmia History of tonsillectomy Hx of heart artery stent Presence of permanent cardiac pacemaker S/P left knee arthroscopy S/P right knee arthroscopy Status post endovenous radiofrequency ablation of saphenous vein Family History Father Coronary heart disease Myocardial infarction Brother Diabetes Mother Diabetes Cancer Denies family history of Colon cancer Ovarian cancer Prostate cancer Breast cancer Social History Smoking Status: Never smoker Second Hand Exposure: No; Do You Dip or Chew Tobacco: No; Hx Alcohol Use: No Hx Substance Use: No Preferred Language: Khmer Communication Ability: Effective Visual Impairment: No Limitations 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: Normal Acute Dialysis Registered Nurse Required: No Beliefs That Will Affect Care: None marital status: Current Living Situation: Spouse current occupational status: retired current occupation: Retired Other Information That Helps Us Care for You: No Feels Safe at Home: Yes Safety Concerns: Feels Safe At This Time Review of Systems Review of Systems: All systems reviewed & are unremarkable except as noted in HPI & below Physical Exam Constitutional: well developed; no acute distress Eyes: + anicteric sclerae; no corneal abnormality ENMT: Mouth: no oral mucosal abnormality and oral mucous membranes not dry Neck: normal visual inspection and trachea midline Respiratory: normal respiratory effort Auscultation: lungs clear to auscultation bilaterally Cardiovascular: Rate/Rhythm: regular rate Heart Sounds: normal S1, normal S2 and + murmur Vessels: + JVD (slightly increased) Extremities: no edema Musculoskeletal: Extremities: no cyanosis and no clubbing Skin: normal turgor; no lesions Neurologic: Motor/Sensory: no tremor and no asterixis Psychiatric: Orientation: alert and oriented x 3 Results & Data Vital Signs (Past 12 Hours) Vital Signs Temp Pulse Resp BP BP Pulse Ox 01/01/20 11:55 36.8 C 70 20 159/79 H 99 01/01/20 07:36 36.5 C 70 18 172/90 H 99 01/01/20 03:50 36.7 C 69 18 138/71 99 Laboratory Results Laboratory Results - last 24 hr 12/31/19 12/31/19 12/31/19 18:19 18:19 20:14 WBC 6.08 RBC 3.00 L Hgb 10.1 L Hct 30.1 L MCV 100.3 H MCH 33.7 MCHC 33.6 RDW Std Deviation 53.1 H RDW Coeff of Seferino 14.6 H Plt Count 169 MPV 9.2 Immature Gran % (Auto) 0.3 Neut % (Auto) 69.6 Lymph % (Auto) 11.5 [place] % (Auto) 15.5 Eos % (Auto) 2.3 Baso % (Auto) 0.8 Neut # (Auto) 4.23 Lymph # (Auto) 0.70 L [place] # (Auto) 0.94 H Eos # (Auto) 0.14 Baso # (Auto) 0.05 Immature Gran # (Auto) 0.02 Sodium 136 Potassium 7.2 H* Chloride 113 H Carbon Dioxide 17 L Anion Gap 7.0 BUN 40 H Creatinine 2.82 H Est Cr Clr Drug Dosing Not Reportable Est GFR ( Amer) 24.1 Est GFR (Non-Af Amer) 20.8 BUN/Creatinine Ratio 14.3 Glucose 93 POC Glucose 249 H Calcium 9.3 Phosphorus Magnesium Total Bilirubin 0.9 AST 33 ALT 22 Alkaline Phosphatase 370 H Troponin I < 0.015 Total Protein 7.2 Albumin 3.1 L Globulin 4.1 H Albumin/Globulin Ratio 0.8 L Urine Color Urine Appearance Urine pH Ur Specific Bronson Urine Protein Urine Glucose (UA) Urine Ketones Urine Blood Urine Nitrite Urine Bilirubin Urine Urobilinogen Ur Leukocyte Esterase Urine WBC (Auto) Urine RBC (Auto) U Hyaline Cast (Auto) U Epithel Cells (Auto) Urine Bacteria (Auto) 12/31/19 12/31/19 01/01/20 21:00 21:55 00:35 WBC RBC Hgb Hct MCV MCH MCHC RDW Std Deviation RDW Coeff of Seferino Plt Count MPV Immature Gran % (Auto) Neut % (Auto) Lymph % (Auto) [place] % (Auto) Eos % (Auto) Baso % (Auto) Neut # (Auto) Lymph # (Auto) [place] # (Auto) Eos # (Auto) Baso # (Auto) Immature Gran # (Auto) Sodium Potassium 6.4 H* 6.8 H* Chloride Carbon Dioxide Anion Gap BUN Creatinine Est Cr Clr Drug Dosing Est GFR ( Amer) Est GFR (Non-Af Amer) BUN/Creatinine Ratio Glucose POC Glucose Calcium Phosphorus Magnesium Total Bilirubin AST ALT Alkaline Phosphatase Troponin I Total Protein Albumin Globulin Albumin/Globulin Ratio Urine Color Yellow Urine Appearance Clear Urine pH 6.5 Ur Specific Bronson 1.015 Urine Protein 1+ H Urine Glucose (UA) Negative Urine Ketones Negative Urine Blood Negative Urine Nitrite Negative Urine Bilirubin Negative Urine Urobilinogen Negative Ur Leukocyte Esterase Negative Urine WBC (Auto) 1-5 Urine RBC (Auto) 0-4 U Hyaline Cast (Auto) 0 U Epithel Cells (Auto) 10-20 H Urine Bacteria (Auto) Negative 01/01/20 01/01/20 01/01/20 02:39 03:15 03:34 WBC RBC Hgb Hct MCV MCH MCHC RDW Std Deviation RDW Coeff of Seferino Plt Count MPV Immature Gran % (Auto) Neut % (Auto) Lymph % (Auto) [place] % (Auto) Eos % (Auto) Baso % (Auto) Neut # (Auto) Lymph # (Auto) [place] # (Auto) Eos # (Auto) Baso # (Auto) Immature Gran # (Auto) Sodium Potassium 6.1 H* Chloride Carbon Dioxide Anion Gap BUN Creatinine Est Cr Clr Drug Dosing Est GFR ( Amer) Est GFR (Non-Af Amer) BUN/Creatinine Ratio Glucose 69 L POC Glucose 40 L* 201 H Calcium Phosphorus Magnesium Total Bilirubin AST ALT Alkaline Phosphatase Troponin I Total Protein Albumin Globulin Albumin/Globulin Ratio Urine Color Urine Appearance Urine pH Ur Specific Bronson Urine Protein Urine Glucose (UA) Urine Ketones Urine Blood Urine Nitrite Urine Bilirubin Urine Urobilinogen Ur Leukocyte Esterase Urine WBC (Auto) Urine RBC (Auto) U Hyaline Cast (Auto) U Epithel Cells (Auto) Urine Bacteria (Auto) 01/01/20 01/01/20 01/01/20 04:34 05:19 05:19 WBC 4.51 L RBC 2.83 L Hgb 9.4 L Hct 28.1 L MCV 99.3 MCH 33.2 MCHC 33.5 RDW Std Deviation 52.0 H RDW Coeff of Seferino 14.4 Plt Count 148 MPV 9.2 Immature Gran % (Auto) 0.2 Neut % (Auto) 63.9 Lymph % (Auto) 12.6 [place] % (Auto) 19.1 Eos % (Auto) 3.5 Baso % (Auto) 0.7 Neut # (Auto) 2.88 Lymph # (Auto) 0.57 L [place] # (Auto) 0.86 H Eos # (Auto) 0.16 Baso # (Auto) 0.03 Immature Gran # (Auto) 0.01 Sodium 139 Potassium 6.6 H* Chloride 108 H Carbon Dioxide 26 Anion Gap 5.0 BUN 39 H Creatinine 2.56 H Est Cr Clr Drug Dosing 24.9 Est GFR ( Amer) 27.1 Est GFR (Non-Af Amer) 23.4 BUN/Creatinine Ratio 15.2 Glucose 90 POC Glucose 113 H Calcium 8.4 L Phosphorus 3.0 Magnesium 1.5 L Total Bilirubin 0.9 AST 30 ALT 20 Alkaline Phosphatase 321 H Troponin I Total Protein 6.4 Albumin 2.7 L Globulin 3.7 Albumin/Globulin Ratio 0.7 L Urine Color Urine Appearance Urine pH Ur Specific Bronson Urine Protein Urine Glucose (UA) Urine Ketones Urine Blood Urine Nitrite Urine Bilirubin Urine Urobilinogen Ur Leukocyte Esterase Urine WBC (Auto) Urine RBC (Auto) U Hyaline Cast (Auto) U Epithel Cells (Auto) Urine Bacteria (Auto) 01/01/20 01/01/20 01/01/20 05:36 07:10 09:54 WBC RBC Hgb Hct MCV MCH MCHC RDW Std Deviation RDW Coeff of Seferino Plt Count MPV Immature Gran % (Auto) Neut % (Auto) Lymph % (Auto) [place] % (Auto) Eos % (Auto) Baso % (Auto) Neut # (Auto) Lymph # (Auto) [place] # (Auto) Eos # (Auto) Baso # (Auto) Immature Gran # (Auto) Sodium 136 Potassium 5.9 H Chloride 104 Carbon Dioxide 28 Anion Gap 4.0 BUN 38 H Creatinine 2.59 H Est Cr Clr Drug Dosing 24.7 Est GFR ( Amer) 26.7 Est GFR (Non-Af Amer) 23.0 BUN/Creatinine Ratio 14.6 Glucose 191 H POC Glucose 98 104 H Calcium 8.6 Phosphorus Magnesium Total Bilirubin AST ALT Alkaline Phosphatase Troponin I Total Protein Albumin Globulin Albumin/Globulin Ratio Urine Color Urine Appearance Urine pH Ur Specific Bronson Urine Protein Urine Glucose (UA) Urine Ketones Urine Blood Urine Nitrite Urine Bilirubin Urine Urobilinogen Ur Leukocyte Esterase Urine WBC (Auto) Urine RBC (Auto) U Hyaline Cast (Auto) U Epithel Cells (Auto) Urine Bacteria (Auto) 01/01/20 11:28 WBC RBC Hgb Hct MCV MCH MCHC RDW Std Deviation RDW Coeff of Seferino Plt Count MPV Immature Gran % (Auto) Neut % (Auto) Lymph % (Auto) [place] % (Auto) Eos % (Auto) Baso % (Auto) Neut # (Auto) Lymph # (Auto) [place] # (Auto) Eos # (Auto) Baso # (Auto) Immature Gran # (Auto) Sodium Potassium Chloride Carbon Dioxide Anion Gap BUN Creatinine Est Cr Clr Drug Dosing Est GFR ( Amer) Est GFR (Non-Af Amer) BUN/Creatinine Ratio Glucose POC Glucose 128 H Calcium Phosphorus Magnesium Total Bilirubin AST ALT Alkaline Phosphatase Troponin I Total Protein Albumin Globulin Albumin/Globulin Ratio Urine Color Urine Appearance Urine pH Ur Specific Bronson Urine Protein Urine Glucose (UA) Urine Ketones Urine Blood Urine Nitrite Urine Bilirubin Urine Urobilinogen Ur Leukocyte Esterase Urine WBC (Auto) Urine RBC (Auto) U Hyaline Cast (Auto) U Epithel Cells (Auto) Urine Bacteria (Auto) PG Care Time/CCT Total # of Minutes Spent Total Time Spent with Patient: Total time spent is greater than 50% in coordin ation of care (as documented) at patient's floor/unit and/or counseling patient: Coding Level of Care Code 09934 Inpt Consult Level 5 Diagnoses Acute hyperkalemia E87.5 Tccuv-ve-ehfeurz kidney injury N17.9; N18.9 Acute renal failure type: unspecified Chronic kidney disease stage: unspecified stage Anemia N18.9; D63.1 Anemia type: due to chronic kidney disease Chronic kidney disease stage: unspecified stage Melena K92.1 Secondary hyperparathyroidism N25.81 Heart failure with preserved ejection fraction I50.30 Osteomyelitis M86.9 (1) Gfaoq-wr-toguqeg kidney injury Acute renal failure type: unspecified Chronic kidney disease stage: unspecified stage Qualified Code(s): N17.9 - Acute kidney failure, unspecified; N18.9 - Chronic kidney disease, unspecified (2) Anemia Anemia type: due to chronic kidney disease Chronic kidney disease stage: unspecified stage Qualified Code(s): N18.9 - Chronic kidney disease, unspecified; D63.1 - Anemia in chronic kidney disease
[2020-01-01 14:55] LABS: Calcium 8.7 mg/dl (8.5-10.1); Creatinine Clr Calc Pharmacy 23.5 ml/min; Est GFR (African American) 25.2; Est GFR (Non-African American) 21.7; Potassium 6.4 mmol/L (3.5-5.1)
--- NOTE | 2020-01-01 15:20 | Hospitalist Progress Note ---
Date of Service January 01, 2020 Assessment & Plan (1) Acute hyperkalemia: Improving with medical management. Attributed to RTA and use of Bactrim. Low K diet. -Pt has Hx of this in the past, secondary to RTA -Currently, on Bactrim for 2 weeks for treatment of a diabetic foot ulcer in the setting of CKD. Likely the cause of this added potassium increase. -On presentation, K+ of 7.2. ED treatment with Insulin 10U IV and D50, [place], sodium bicarbonate drip -Also received calcium gluconate for cardioprotection -No dysrhythmias noted Renal with additional lasix dose this AM Repeat K is slightly higher on 12/31 2p draw Orders as per renal, recheck HS (2) Botqp-yh-wxbmpcv kidney injury: -Baseline Cr of 2.1, elevated to 2.8 this visit CKD IV (3) Anemia: Chronic. Treated with IV iron in the past. History of LGIB in the past. Will monitor. No need for PREETHI therapy at this time. Update iron profile with next blood work. (4) Melena: Denies current symptoms. Evaluated during prior admission. (5) Secondary hyperparathyroidism: Managed with vitamin D therapy. No acute indication to adjust treatment. (6) Heart failure with preserved ejection fraction: Afib/Complete Heart Block/CAD/HFpEF -Hx of ablation therapy in [place] in October 2018 for atiral fibrillation -Echo October 2019: Diastolic dysfunction, LVH, EF 50-55% -Continue home eliquis 5mg BID, plavix 75mg, atorvastatin 80mg, ISM 60mg BID -Pacemaker in place (7) Osteomyelitis: -Pt had right heel debrided on 12/17/2019 with bone biopsy -concern for osteomyelitis, outpatient treatment currently with Bactrim, however concerns as outpt that this was not fully tx infection Apparently ortho called [facility] on 12/30 and was asked to send cx, etc with plans for further recs forthcoming It is unclear if this was done. -Bactrim held this visit given hyperkalemia above Start dapto 12/31 based on 12/16 wound C&S while awaiting recs Hx of pseudomonas noted on cx in October, does not appear to be growing in most recent cx Will add further coverage if appearance continues to decline Seen by ortho, no plans for changing current conservative management at this time QD dressing changes f/u in office in 2 weeks (8) Type 1 diabetes mellitus: -Continue own insulin pump -ISS Pt's glucometer is giving different readings than hospital glucometer. Use pt's home glucometer given it is also dosing his insulin to avoid overdosing. (9) Hypothyroid: -Continue home synthroid 112mcg (10) GERD (gastroesophageal reflux disease): continue home meds Admission and Anticipated Discharge Date Admission Date: December 31, 2019 Subjective Pt states he has had no sx and feels fine other than his R foot ulcer pain and swelling. Tolerating PO without issue. Pt denies fever, SOB, chest pain, abd pain, n/v/c/d. Called in the afternoon by nursing as pt's home glucometer is having different readings from hospital glucometer and he is concerned with tx based on hospital glucometer as these readings are higher. brought in new batteries, but there is still a noted difference in readings. Review of Systems Review of Systems: Pertinent positives and negatives reviewed in HPI--all others negative Physical Exam Constitutional: WD/WN, vitals as above Eyes: normal visual clemens by confrontation and + anicteric sclerae Neck: normal visual inspection and trachea midline Respiratory: normal respiratory effort, lungs clear to auscultation Cardiovascular: Rate/Rhythm: regular rate and regular rhythm Extremities: + edema (R foot) Gastrointestinal (Abdomen): Inspection/Auscultation: abdomen not distended Percussion/Palpation: abdomen soft; abdomen nontender Musculoskeletal: Head/Neck/Chest: normocephalic and head atraumatic peripheral pulses intact Skin: + erythema (R foot) Neurologic: awake; not confused Speech / Cognition: normal speech Psychiatric: A+Ox3, euthymic affect Results & Data Results & Data ([facility]) Vital Signs (Past 12 Hours) Vital Signs Temp Pulse Resp BP BP Pulse Ox 01/01/20 11:55 36.8 C 70 20 159/79 H 99 01/01/20 07:36 36.5 C 70 18 172/90 H 99 01/01/20 03:50 36.7 C 69 18 138/71 99 PG Care Time/CCT Total # of Minutes Spent Total Time Spent with Patient: Total time spent is greater than 50% in coordination of care (as documented) at patient's floor/unit and/or counseling patient: Coding Level of Care Code 33323 Subseq Hosp Care Lvl 3 Diagnoses Acute hyperkalemia E87.5 Ymdzk-fy-fljiopi kidney injury N17.9; N18.9 Acute renal failure type: unspecified Chronic kidney disease stage: unspecified stage Anemia N18.9; D63.1 Anemia type: due to chronic kidney disease Chronic kidney disease stage: unspecified stage Melena K92.1 Secondary hyperparathyroidism N25.81 Heart failure with preserved ejection fraction I50.30 Osteomyelitis M86.9 Type 1 diabetes mellitus E10.9 Hypothyroid E03.9 GERD (gastroesophageal reflux disease) K21.9 (1) Msmhw-ig-mznwawb kidney injury Acute renal failure type: unspecified Chronic kidney disease stage: unspecified stage Qualified Code(s): N17.9 - Acute kidney failure, unspecified; N18.9 - Chronic kidney disease, unspecified (2) Anemia Anemia type: due to chronic kidney disease Chronic kidney disease stage: unspecified stage Qualified Code(s): N18.9 - Chronic kidney disease, unspecified; D63.1 - Anemia in chronic kidney disease
[2020-01-01] MEDS ORDERED: PATIROMER CALCIUM SORBITEX 8.4 GM PACK PO ONE (15:37)
[2020-01-01] MEDS ORDERED: DAPTOMYCIN CONSULT ACTIVE PRN (15:42)
[2020-01-01] MEDS: DAPTOmycin 425 MG in SYRINGE 0 ML IV SCH (17:02)
[2020-01-01 20:54] LABS: Calcium 8.7 mg/dl (8.5-10.1); Creatinine Clr Calc Pharmacy 21.8 ml/min; Est GFR (Non-African American) 19.8; Potassium 6.5 mmol/L (3.5-5.1)
[2020-01-01] MEDS ORDERED: ATORVASTATIN 40 MG TAB PO SCH (21:00)
[2020-01-01] MEDS: MAGNESIUM OXIDE 400 MG TAB PO SCH (21:30)
--- NOTE | 2020-01-01 21:48 | Billing Data ---
Date of Service January 01, 2020 Coding Level of Care Code 48608 Initial Inpt Care Lvl 3
[2020-01-01] MEDS ORDERED: CALCIUM GLUCONATE 10% 2,000 MG in SODIUM CHLORIDE 0.9% 50 ML IV ONE (22:18)
[2020-01-01] MEDS ORDERED: INSULIN HUMAN LISPRO (humaLOG) 100 UNITS/ML VIAL SC PRN (23:45)
[2020-01-02] MEDS ORDERED: SODIUM CHLORIDE 0.9% 1000ML 250 ML IV ONE (03:39)
[2020-01-02] MEDS ORDERED: FUROSEMIDE 20 MG in SYRINGE 0 ML IV ONE (03:39)
[2020-01-02] MEDS: LEVOTHYROXINE SODIUM 112 MCG TABLET PO SCH (06:04)
[2020-01-02 06:33] LABS: Basophils # (auto) 0.06 K/uL (0-0.2); Basophils % (auto) 1.3 %; Eosinophils # (auto) 0.27 K/uL (0-0.5); Eosinophils % (auto) 5.9 %; Hematocrit (blood only) 26.6 % (42-52); Hemoglobin 8.9 g/dL (14.0-18.0); Immature Granulocytes # (auto) 0.04 K/uL (0.00-0.02); Immature Granulocytes % (auto) 0.9 %; Lymphocytes # (auto) 0.69 K/uL (1.2-3.4); Lymphocytes % (auto) 15.1 %; Mean Corpuscular Hemoglobin 32.6 pg (25-34); Mean Corpuscular Hgb Conc 33.5 g/dL (32-36); Mean Corpuscular Volume 97.4 fL (80-100); Mean Platelet Volume 9.2 fL (7.4-10.4); Monocytes % (auto) 17.5 %; Neutrophils % (auto) 59.3 %; Platelet Count 150 K/uL (130-400); RDW Coefficient of Variation 14.2 % (11.5-14.5); RDW Standard Deviation 50.8 fL (36.4-46.3); Red Blood Count 2.73 M/uL (4.7-6.1); White Blood Count 4.56 K/uL (4.8-10.8)
[2020-01-02 07:02] LABS: BUN Creatinine Ratio 14.7 (10-20); Calcium 8.5 mg/dl (8.5-10.1); Creatinine Clr Calc Pharmacy 23.1 ml/min; Est GFR (African American) 24.6; Est GFR (Non-African American) 21.2; Magnesium 1.4 mg/dl (1.8-2.4); Potassium 6.4 mmol/L (3.5-5.1)
[2020-01-02] MEDS: ISOSORBIDE MONO EXTENDED REL 60 MG TABCR PO SCH ×2 (07:26→20:25)
[2020-01-02] MEDS ORDERED: PATIROMER CALCIUM SORBITEX 8.4 GM PACK PO STA ×2 (07:27)
[2020-01-02] MEDS: PANTOprazole 40 MG TAB PO SCH (07:27)
[2020-01-02] MEDS: APIXABAN 5 MG TABLET PO SCH ×2 (07:27→20:24)
[2020-01-02] MEDS: MAGNESIUM SULFATE / D5W 1 GM/100 ML BAG IV SCH ×2 (07:49→09:52)
--- NOTE | 2020-01-02 10:56 | Nephrology Progress Note ---
Date of Service January 02, 2020 Assessment & Plan (1) Acute hyperkalemia: Unfortunately, serum potassium remains ~6.4 mmol/L. Potassium was 5.9 mmol/L yesterday AM. I suspect the increase was related to extracellular shifting of total body potassium after HCO3 infusion was stopped. Mr. Blake remains on a strict low potassium diet. Daptomycin can be associated with hyperkalemia but this would seem unlikely. I am not aware of any potential association between antibiotic beads and hyperkalemia. Severe hyperkalemia on admission attributed to RTA and use of Bactrim. Furosemide 20 mg IV x 2 doses provided yesterday with adequate response in urine output. I have ordered an additional 16.8 gm of patiromer for this morning. Repeat metabolic profile scheduled for this afternoon. Remains on tele monitor. Will continue IV infusion of HCO3 pending improvement in serum potassium. Additional IV calcium provided intermittently overnight. (2) Zjjaz-fi-vrfreis kidney injury: BP and volume status are acceptable. Creatinine stable at 2.7 mg/dL. Non-oliguric. Document I/O's. Repeat metabolic profile this afternoon. Baseline creatinine ~2.3 mg/dL. UA/microscopy +1 protein but otherwise bland and acellular. No renal imaging this admission. Medications appropriately dosed for kidney function. Avoid Bactrim. No LINDA/ARB. No NSAIDS. (3) Anemia: Chronic anemia noted. Treated with IV iron in the past. History of LGIB in the past. Denies melena or hematochezia. H/H trending down. Will check iron profile with next labs and obtain stool for occult blood. No need for PREETHI therapy at this time. (4) Melena: Denies current symptoms. Evaluated during prior admission. (5) Secondary hyperparathyroidism: Managed with vitamin D therapy. No acute indication to adjust treatment. (6) Heart failure with preserved ejection fraction: Euvolemic. Furosemide 40 mg IV provided today to encourage kaliuresis. Net negative fluid balance ~1.5 L since admission. (7) Osteomyelitis: Daptomycin started yesterday. Monitor CPK on therapy. Admission and Anticipated Discharge Date Admission Date: December 31, 2019 Subjective No acute events overnight. Mr. Blake feels well. Blood glucose control has been acceptable. He notes significant increase in urine output with 2 x 20 mg doses of furosemide yesterday. Edema in legs significantly improved. Appetite is good. He expressed frustration that serum potassium levels have not improved. Hopes to be discharged home soon. No diarrhea. No blood in stool. Review of Systems Review of Systems: All systems reviewed & are unremarkable except as noted in HPI & below Physical Exam Constitutional: well developed; no acute distress Eyes: + anicteric sclerae; no corneal abnormality ENMT: Mouth: no oral mucosal abnormality and oral mucous membranes not dry Neck: normal visual inspection and trachea midline Respiratory: normal respiratory effort Auscultation: lungs clear to auscultation bilaterally Cardiovascular: Rate/Rhythm: regular rate Heart Sounds: normal S1, normal S2 and + murmur Vessels: + JVD (slightly increased) Extremities: no edema Musculoskeletal: Extremities: no cyanosis and no clubbing Skin: normal turgor; no lesions Neurologic: Motor/Sensory: no tremor and no asterixis Psychiatric: Orientation: alert and oriented x 3 Results & Data ([facility]) Vital Signs (Past 12 Hours) Vital Signs Temp Pulse Pulse Resp BP BP Pulse Ox 01/02/20 07:05 36.7 C 70 19 147/68 H 97 01/02/20 03:25 36.7 C 75 18 155/78 H 98 01/01/20 23:09 36.6 C 70 18 164/84 H 100 Laboratory Results Laboratory Results - last 24 hr 01/01/20 01/01/20 01/01/20 11:28 14:18 20:07 WBC RBC Hgb Hct MCV MCH MCHC RDW Std Deviation RDW Coeff of Seferino Plt Count MPV Immature Gran % (Auto) Neut % (Auto) Lymph % (Auto) [place] % (Auto) Eos % (Auto) Baso % (Auto) Neut # (Auto) Lymph # (Auto) [place] # (Auto) Eos # (Auto) Baso # (Auto) Immature Gran # (Auto) Sodium 135 L 133 L Potassium 6.4 H* 6.5 H* Chloride 105 103 Carbon Dioxide 25 27 Anion Gap 5.0 3.0 BUN 38 H 41 H Creatinine 2.72 H 2.93 H Est Cr Clr Drug Dosing 23.5 21.8 Est GFR ( Amer) 25.2 23.0 Est GFR (Non-Af Amer) 21.7 19.8 BUN/Creatinine Ratio 14.0 14.0 Glucose 97 136 H POC Glucose 128 H Calcium 8.7 8.7 Magnesium 08/09/20 08/09/20 06:20 06:20 WBC 4.56 L RBC 2.73 L Hgb 8.9 L Hct 26.6 L MCV 97.4 MCH 32.6 MCHC 33.5 RDW Std Deviation 50.8 H RDW Coeff of Seferino 14.2 Plt Count 150 MPV 9.2 Immature Gran % (Auto) 0.9 Neut % (Auto) 59.3 Lymph % (Auto) 15.1 [place] % (Auto) 17.5 Eos % (Auto) 5.9 Baso % (Auto) 1.3 Neut # (Auto) 2.70 Lymph # (Auto) 0.69 L [place] # (Auto) 0.80 H Eos # (Auto) 0.27 Baso # (Auto) 0.06 Immature Gran # (Auto) 0.04 H Sodium 138 Potassium 6.4 H* Chloride 106 Carbon Dioxide 25 Anion Gap 7.0 BUN 41 H Creatinine 2.77 H Est Cr Clr Drug Dosing 23.1 Est GFR ( Amer) 24.6 Est GFR (Non-Af Amer) 21.2 BUN/Creatinine Ratio 14.7 Glucose 128 H POC Glucose Calcium 8.5 Magnesium 1.4 L PG Care Time/CCT Total # of Minutes Spent Total Time Spent with Patient: Total time spent is greater than 50% in coordination of care (as documented) at patient's floor/unit and/or counseling patient: Coding Level of Care Code 55212 Subseq Hosp Care Lvl 3 Diagnoses Acute hyperkalemia E87.5 Hlccc-xw-avqsljy kidney injury N17.9; N18.9 Acute renal failure type: unspecified Chronic kidney disease stage: unspecified stage Anemia N18.9; D63.1 Anemia type: due to chronic kidney disease Chronic kidney disease stage: unspecified stage Melena K92.1 Secondary hyperparathyroidism N25.81 Heart failure with preserved ejection fraction I50.30 Osteomyelitis M86.9 (1) Bxahw-rj-hfpaeci kidney injury Acute renal failure type: unspecified Chronic kidney disease stage: unspecified stage Qualified Code(s): N17.9 - Acute kidney failure, unspecified; N18.9 - Chronic kidney disease, unspecified (2) Anemia Anemia type: due to chronic kidney disease Chronic kidney disease stage: unspecified stage Qualified Code(s): N18.9 - Chronic kidney disease, unspecified; D63.1 - Anemia in chronic kidney disease
[2020-01-02] MEDS: SODIUM BICARBONATE 8.4% 150 MEQ in WATER, STERILE 1,000 ML IV SCH ×2 (12:27→22:48)
[2020-01-02 13:14] LABS: Ferritin 118.8 ng/ml (8-388)
[2020-01-02 14:24] LABS: Calcium 8.4 mg/dl (8.5-10.1); Creatinine Clr Calc Pharmacy 21.6 ml/min; Est GFR (African American) 22.8; Est GFR (Non-African American) 19.7; Potassium 5.5 mmol/L (3.5-5.1)
--- NOTE | 2020-01-02 15:47 | Hospitalist Progress Note ---
Date of Service January 02, 2020 Assessment & Plan (1) Acute hyperkalemia: Improved initially with medical management, however did increase again overnight Attributed to RTA and use of Bactrim. Low K diet. -Pt has Hx of this in the past, secondary to RTA -Currently, on Bactrim for 2 weeks for treatment of a diabetic foot ulcer in the setting of CKD. Likely the cause of this added potassium increase. -On presentation, K+ of 7.2. ED treatment with Insulin 10U IV and D50, Veltassa, sodium bicarbonate drip -Also received calcium gluconate for cardioprotection -No dysrhythmias noted Renal repeated veltassa dosing and bicarb drip Improved to 5.5 this afternoon Repeat and monitor (2) Ljwgo-qw-kakwrbr kidney injury: -Baseline Cr of 2.1, elevated to 2.8 this visit CKD IV (3) Anemia: Chronic. Treated with IV iron in the past. History of LGIB in the past. Will monitor. No need for PREETHI therapy at this time. Update iron profile with next blood work. (4) Melena: Denies current symptoms. Evaluated during prior admission. (5) Secondary hyperparathyroidism: Managed with vitamin D therapy. No acute indication to adjust treatment. (6) Heart failure with preserved ejection fraction: Afib/Complete Heart Block/CAD/HFpEF -Hx of ablation therapy in [place] in October 2018 for atiral fibrillation -Echo October 2019: Diastolic dysfunction, LVH, EF 50-55% -Continue home eliquis 5mg BID, plavix 75mg, atorvastatin 80mg, ISM 60mg BID -Pacemaker in place (7) Osteomyelitis: Pt had right heel debrided on 12/17/2019 with bone biopsy -concern for osteomyelitis, outpatient treatment currently with Bactrim, however concerns as outpt that this was not fully tx infection Apparently ortho called [facility] on 12/30 and was asked to send cx, etc with plans for further recs forthcoming It is unclear if this was done. -Bactrim held this visit given hyperkalemia above Start dapto 12/31 based on 12/16 wound C&S while awaiting recs Hx of pseudomonas noted on cx in October, does not appear to be growing in most recent cx Will add further coverage if appearance continues to decline Seen by ortho, no plans for changing current conservative management at this time QD dressing changes f/u in office in 2 weeks (8) Type 1 diabetes mellitus: -Continue own insulin pump -ISS Pt's glucometer is giving different readings than hospital glucometer. Use pt's home glucometer given it is also dosing his insulin to avoid overdosing. (9) Hypothyroid: -Continue home synthroid 112mcg (10) GERD (gastroesophageal reflux disease): continue home meds Admission and Anticipated Discharge Date Admission Date: December 31, 2019 Subjective Pt continues to feel fine. R LE is without pain today, still with some swelling. Tolerating PO. Pt denies fever, SOB, chest pain, abd pain, n/v/c/d. He is frustrated with his increasing K levels. Review of Systems Review of Systems: Pertinent positives and negatives reviewed in HPI--all others negative Physical Exam Constitutional: WD/WN, vitals as above Eyes: normal visual clemens by confrontation and + anicteric sclerae Neck: normal visual inspection and trachea midline Respiratory: normal respiratory effort, lungs clear to auscultation Cardiovascular: Rate/Rhythm: regular rate and regular rhythm Extremities: + edema (R foot) Gastrointestinal (Abdomen): Inspection/Auscultation: abdomen not distended Percussion/Palpation: abdomen soft; abdomen nontender Musculoskeletal: Head/Neck/Chest: normocephalic and head atraumatic Skin: + erythema (R foot) Neurologic: awake; not confused Speech / Cognition: normal speech Psychiatric: A+Ox3, euthymic affect Results & Data Results & Data ([facility]) Vital Signs (Past 12 Hours) Vital Signs Temp Pulse Resp BP Pulse Ox 01/02/20 12:05 36.9 C 73 20 112/53 L 100 01/02/20 07:05 36.7 C 70 19 147/68 H 97 PG Care Time/CCT Total # of Minutes Spent Total Time Spent with Patient: Total time spent is greater than 50% in coordination of care (as documented) at patient's floor/unit and/or counseling patient: Coding Level of Care Code 50374 Subseq Hosp Care Lvl 3 Diagnoses Acute hyperkalemia E87.5 Esrtt-mr-jmohgcx kidney injury N17.9; N18.9 Acute renal failure type: unspecified Chronic kidney disease stage: unspecified stage Anemia N18.9; D63.1 Anemia type: due to chronic kidney disease Chronic kidney disease stage: unspecified stage Melena K92.1 Secondary hyperparathyroidism N25.81 Heart failure with preserved ejection fraction I50.30 Osteomyelitis M86.9 Type 1 diabetes mellitus E10.9 Hypothyroid E03.9 GERD (gastroesophageal reflux disease) K21.9 (1) Ijjzn-jv-gsoyofp kidney injury Acute renal failure type: unspecified Chronic kidney disease stage: unspecified stage Qualified Code(s): N17.9 - Acute kidney failure, unspecified; N18.9 - Chronic kidney disease, unspecified (2) Anemia Anemia type: due to chronic kidney disease Chronic kidney disease stage: unspecified stage Qualified Code(s): N18.9 - Chronic kidney disease, unspecified; D63.1 - Anemia in chronic kidney disease
[2020-01-02] MEDS ORDERED: IRON SUCROSE 200 MG in 0.9 % SODIUM CHLORIDE 100 ML IV ONE (20:00)
[2020-01-02] MEDS: MAGNESIUM OXIDE 400 MG TAB PO SCH (20:25)
[2020-01-03] MEDS: LEVOTHYROXINE SODIUM 112 MCG TABLET PO SCH (06:07)
[2020-01-03 06:30] LABS: Albumin Level 2.6 gm/dl (3.4-5.0); BUN Creatinine Ratio 13.1 (10-20); Calcium 8.7 mg/dl (8.5-10.1); Creatinine Clr Calc Pharmacy 21.4 ml/min; Est GFR (African American) 22.5; Est GFR (Non-African American) 19.4; Potassium 5.4 mmol/L (3.5-5.1)
[2020-01-03 06:32] LABS: Phosphorus 3.6 mg/dl (2.5-4.9)
[2020-01-03] MEDS: ISOSORBIDE MONO EXTENDED REL 60 MG TABCR PO SCH ×2 (07:56→21:54)
[2020-01-03] MEDS: APIXABAN 5 MG TABLET PO SCH ×2 (07:56→21:54)
[2020-01-03] MEDS: PANTOprazole 40 MG TAB PO SCH (07:56)
--- NOTE | 2020-01-03 08:46 | Nephrology Progress Note ---
Date of Service January 03, 2020 Assessment & Plan (1) Acute hyperkalemia: Improved to 5.4 mmol/L which is baseline for Talon. Low potassium diet reviewed in detail. Creatinine stable. Excellent urine output. Oral NaHCO3 restarted. Additional 20 mg PO furosemide provided today. Talon has close follow up with Dr. Bridges scheduled in the outpatient clinic (01/12/20). At this time, I think he would be stable from a nephrology standpoint with close outpatient observation. 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 I will send an Rx for alexysromececilia to his outpatient pharmacy to see if we can obtain some medication for home use if potassium is found to be elevated in the future. (2) Etqjy-ux-wvfkswk kidney injury: BP and volume status are acceptable. Creatinine stable at 2.9 mg/dL. Non- oliguric. UA/microscopy +1 protein but otherwise bland and acellular. No renal imaging this admission. Medications appropriately dosed for kidney function. Avoid Bactrim. No LINDA/ARB. No NSAIDS. (3) Anemia: Chronic anemia noted. Treated with IV iron in the past. History of LGIB in the past. Last colonoscopy ~2.[address] Hua. Evidence of UGI bleed noted at [facility] [place] recently but EGD deferred pending cardiac evaluation. Outpatient follow up with GI encouraged. Denies melena or hematochezia. Mild iron deficiency noted. Venofer 200 mg IV provided yesterday. Additional 200 mg IV V enofer ordered for today. No PREETHI therapy at this time. (4) Secondary hyperparathyroidism: Managed with vitamin D therapy. No acute indication to adjust treatment. (5) Heart failure with preserved ejection fraction: Euvolemic. Resume furosemide PO today. Talon had been taking 20 mg PO BID prior to admission. This is a reasonable dose. No changes suggested at this time. (6) Osteomyelitis: Remains on daptomycin. Monitor CPK on therapy. Admission and Anticipated Discharge Date Admission Date: December 31, 2019 Subjective No acute events overnight. Remains on tele monitor. Overall, Talon feels well today. He hopes to be discharged home soon. 2 bowel movements yesterday that were both well formed. No evidence of blood in his stool. Stable edema R>L LE. No shortness of breath. Out of bed to bathroom without difficulty. Detailed information on low potassium diet provided by dietitian reviewed today. Review of Systems Review of Systems: All systems reviewed & are unremarkable except as noted in HPI & below Physical Exam Constitutional: well developed; no acute distress Eyes: + anicteric sclerae; no corneal abnormality ENMT: Mouth: no oral mucosal abnormality and oral mucous membranes not dry Neck: normal visual inspection and trachea midline Respiratory: normal respiratory effort Auscultation: lungs clear to auscultation bilaterally Cardiovascular: Rate/Rhythm: regular rate Heart Sounds: normal S1, normal S2 and + murmur Extremities: + edema Musculoskeletal: Extremities: no cyanosis and no clubbing Skin: normal turgor; no lesions Neurologic: Motor/Sensory: no tremor and no asterixis Psychiatric: Orientation: alert and oriented x 3 Results & Data ([facility]) Vital Signs (Past 12 Hours) Vital Signs Temp Pulse Resp BP BP Pulse Ox 01/03/20 07:00 36.8 C 70 19 150/65 H 96 01/03/20 03:20 36.6 C 73 16 157/83 H 97 01/02/20 23:07 36.8 C 70 16 134/68 96 Laboratory Results Laboratory Results - last 24 hr 01/02/20 01/02/20 01/03/20 06:20 13:50 06:00 Sodium 137 138 Potassium 5.5 H 5.4 H Chloride 103 105 Carbon Dioxide 28 27 Anion Gap 6.0 7.0 BUN 41 H 39 H Creatinine 2.95 H 2.98 H Est Cr Clr Drug Dosing 21.6 21.4 Est GFR ( Amer) 22.8 22.5 Est GFR (Non-Af Amer) 19.7 19.4 BUN/Creatinine Ratio 14.0 13.1 Glucose 129 H 117 H Calcium 8.4 L 8.7 Phosphorus 3.6 Iron 43 Transferrin 181 L Transferrin % Sat 17 L Ferritin 118.8 Albumin 2.6 L PG Care Time/CCT Total # of Minutes Spent Total Time Spent with Patient: Total time spent is greater than 50% in coordination of care (as documented) at patient's floor/unit and/or counseling patient: Coding Level of Care Code 74050 Subseq Hosp Care Lvl 3 Diagnoses Acute hyperkalemia E87.5 Rwtnr-qk-myyawnc kidney injury N17.9; N18.9 Acute renal failure type: unspecified Chronic kidney disease stage: unspecified stage Anemia N18.9; D63.1 Anemia type: due to chronic kidney disease Chronic kidney disease stage: unspecified stage Secondary hyperparathyroidism N25.81 Heart failure with preserved ejection fraction I50.30 Osteomyelitis M86.9 (1) Anemia Anemia type: due to chronic kidney disease Chronic kidney disease stage: unspecified stage Qualified Code(s): N18.9 - Chronic kidney disease, unspecified; D63.1 - Anemia in chronic kidney disease (2) Hiarc-bz-tjkcrfi kidney injury Acute renal failure type: unspecified Chronic kidney disease stage: unspecified stage Qualified Code(s): N17.9 - Acute kidney failure, unspecified; N18.9 - Chronic kidney disease, unspecified
[2020-01-03] MEDS ORDERED: FUROSEMIDE 20 MG TAB PO SCH (09:00)
[2020-01-03] MEDS ORDERED: IRON SUCROSE 200 MG in 0.9 % SODIUM CHLORIDE 100 ML IV ONE (09:00)
[2020-01-03] MEDS: SODIUM BICARBONATE 650 MG TAB PO SCH ×2 (09:22→21:51)
[2020-01-03] MEDS: DAPTOmycin 425 MG in SYRINGE 0 ML IV SCH (17:34)
--- NOTE | 2020-01-03 18:08 | Orthopedic Progress Note ---
Date of Service January 03, 2020 Assessment & Plan (1) Acute osteomyelitis of right calcaneus: After discussing Dr. Menchaca's findings and feelings on his case, the patient was more at ease and having a PICC line in the IV antibiotics. He is currently on daptomycin which we will keep him on for once a day dosing. Dr. Menchaca's team has faxed the culture results down to the [facility] infectious disease team to get their input on it as well. Patient states that just knowing what Dr. Menchaca found during the washout, has helped him greatly in deciding to continue his antibiotics. All of his questions were answered to the best of my ability. I discussed the case with Dr. Young. She will plan on having him sign a pick consent and plan for PICC line insertion either tonight or tomorrow with plans for 6 weeks of IV antibiotics. The patient states that he has a follow-up appointment with Dr. Menchaca on the of this month. We will continue to keep that appointment at this time. Continue daily dressing changes with use of aqua cell AG. Admission and Anticipated Discharge Date Admission Date: December 31, 2019 Subjective I was contacted today by Dr. Young. Apparently there was some confusion on the patient's part of why he needs a PICC line and IV antibiotics. Patient had undergone irrigation debridement of the right heel with implantation of a ntibiotic beads by Dr. Menchaca earlier this month. This was done on an outpatient basis. Patient was subsequently sent home and was taking oral antibiotics at that time with plans for possible IV antibiotics. Cultures had been obtained at that time showing coag negative staph not lugdunensis which was resistant to oxacillin and also corynebacterium species. Patient was readmitted over the weekend for hyperkalemia and CKD. At the time Dr. Trujillo saw the patient and had talked to Dr. Menchaca's PA John Ervin PA-C who discussed that they were planning for a likely PICC line and IV antibiotics. When this was discussed with the patient today about putting in a PICC line, he was somewhat disgruntled and wanted to speak to 1 of us about his cultures and the antibiotic situation. This evening the patient is pleasant and concerned over having to take long-term IV antibiotics. He had been on p.o. Bactrim of recent. I discussed the case with Dr. Menchaca over the phone. Dr. Menchaca stated that he had found clinical evidence during the washout of chronic infection around the periosteum and the bone itself of the heel. Tissues also were showing signs of chronic infection. At this point in time, he feels that the patient should be on IV antibiotics for 6 weeks. This was discussed with the patient in detail. Physical Exam Physical Exam: On examination of the right heel, the area of the ulcer is noted with a lot of dry skin around the heel itself. There is a section is approximately 2 cm in width that has a good pink base with some mild slough tissue. No overt purulence noted. No odor. No drainage at this time. He is nontender on palpation and I cannot produce any drainage upon palpation. There are some areas of eschar noted over the whole of the ulcer more on the outer edge. Sutures continue to remain in the wound that are keeping the antibiotic beads inside. No overt erythema noted. Wound was redressed with Aquacel, 4 x 4's and a Kerlix. Results & Data ([facility]) Vital Signs (Past 12 Hours) Vital Signs Temp Pulse Pulse Resp BP Pulse Ox 01/03/20 16:27 70 01/03/20 11:57 36.6 C 60 19 116/66 97 01/03/20 07:00 36.8 C 70 19 150/65 H 96
--- NOTE | 2020-01-03 18:27 | Hospitalist Progress Note ---
Date of Service January 03, 2020 Assessment & Plan (1) Acute hyperkalemia: Improved initially with medical management, however did increase again overnight Attributed to RTA and use of Bactrim. Low K diet. -Pt has Hx of this in the past, secondary to RTA -Currently, on Bactrim for 2 weeks for treatment of a diabetic foot ulcer in the setting of CKD. Likely the cause of this added potassium increase. -On presentation, K+ of 7.2. ED treatment with Insulin 10U IV and D50, Veltassa, sodium bicarbonate drip -Also received calcium gluconate for cardioprotection -No dysrhythmias noted K today is 5.4, which is baseline for pt per renal Given rx for PRN veltassa use if K does elevate Restart PO bicarb, home lasix dosing (2) Axtnd-bx-becklaz kidney injury: -Baseline Cr of 2.1, elevated to 2.8 this visit CKD IV (3) Anemia: Chronic. Treated with IV iron in the past. History of LGIB in the past. Will monitor. No need for PREETHI therapy at this time. Update iron profile with next blood work. (4) Melena: Denies current symptoms. Evaluated during prior admission. (5) Secondary hyperparathyroidism: Managed with vitamin D therapy. No acute indication to adjust treatment. (6) Heart failure with preserved ejection fraction: Afib/Complete Heart Block/CAD/HFpEF -Hx of ablation therapy in [place] in October 2018 for atiral fibrillation -Echo October 2019: Diastolic dysfunction, LVH, EF 50-55% -Continue home eliquis 5mg BID, plavix 75mg, atorvastatin 80mg, ISM 60mg BID -Pacemaker in place (7) Osteomyelitis: Pt had right heel debrided on 12/17/2019 with bone biopsy -concern for osteomyelitis, outpatient treatment currently with Bactrim, however concerns as outpt that this was not fully tx infection Apparently ortho called [facility] on 12/30 and was asked to send cx, etc with plans for further recs forthcoming It is unclear if this was done. -Bactrim held this visit given hyperkalemia above Start dapto 12/31 based on 12/16 wound C&S while awaiting recs Hx of pseudomonas noted on cx in October, does not appear to be growing in most rec ent cx Will add further coverage if appearance continues to decline Seen by ortho, no plans for changing current conservative management at this time QD dressing changes f/u in office in 2 weeks PICC to be placed tomorrow after repeated conversations with pt, consent done by myself this evening Ongoing dapto, will need set up by CM prior to d/c (8) Type 1 diabetes mellitus: -Continue own insulin pump -ISS Pt's glucometer is giving different readings than hospital glucometer. Use pt's home glucometer given it is also dosing his insulin to avoid overdosing. (9) Hypothyroid: -Continue home synthroid 112mcg (10) GERD (gastroesophageal reflux disease): continue home meds Admission and Anticipated Discharge Date Admission Date: December 31, 2019 Spent over 120 minutes of time on care for this pt, including multiple conversations with pt and , surgeon, nursing Subjective Pt is very upset today. He states that he was not informed by ortho at his outpt visit that he would be needing a PICC or prolonged IV abx. He states that he was told that the bx showed that there was no osteo in his R heel and that because of this, he does not think that IV abx are warranted. He is very frustrated about the lack of coordination of [facility] surgeons and feels that he does not know what is going on. He states that "this hospital has had too many m istakes" citing errors made that caused pt to be given medicines "that caused my heart attack" as well as misdx of his thyroid condition as hyperthyroid instead of hypothyroid, as well as other examples. He states that he does not want a PICC line and would like to go home to f/u with ortho as scheduled on 01/12. Pt states he feels fine otherwise. No pain to his foot at rest. Pt denies fever, SOB, chest pain, abd pain, n/v/c/d, LE swelling. Tolerating PO without issue. I spoke with ortho and advised them of pt's concerns. They state that pt does indeed have osteo and needs further abx. They came to bedside after they finished a late case and d/w pt. Pt is now amenable to PICC placement and IV abx. Pt states he feels much better about this tx plan. He states that he feels the surgeons have given him adequate explanation of what they saw in the OR and he does agree that he likely still had osteo, despite the neg bx results. Review of Systems Review of Systems: Pertinent positives and negatives reviewed in HPI--all others negative Physical Exam Constitutional: WD/WN, vitals as above Eyes: normal visual clemens by confrontation and + anicteric sclerae Neck: normal visual inspection and trachea midline Respiratory: normal respiratory effort, lungs clear to auscultation Cardiovascular: Rate/Rhythm: regular rate and regular rhythm Extremities: + edema (R foot) Gastrointestinal (Abdomen): Inspection/Auscultation: abdomen not distended Percussion/Palpation: abdomen soft; abdomen nontender Musculoskeletal: Head/Neck/Chest: normocephalic and head atraumatic Skin: + erythema (R foot) Neurologic: awake; not confused Speech / Cognition: normal speech Psychiatric: A+Ox3, euthymic affect Results & Data Results & Data ([facility]) Vital Signs (Past 12 Hours) Vital Signs Temp Pulse Pulse Resp BP Pulse Ox 01/03/20 16:27 70 01/03/20 11:57 36.6 C 60 19 116/66 97 01/03/20 07:00 36.8 C 70 19 150/65 H 96 PG Care Time/CCT Total # of Minutes Spent Total Time Spent with Patient: Total time spent is greater than 50% in coordination of care (as documented) at patient's floor/unit and/or counseling patient: Coding Level of Care Code None Diagnoses Acute hyperkalemia E87.5 Zliai-jl-waubnwo kidney injury N17.9; N18.9 Acute renal failure type: unspecified Chronic kidney disease stage: unspecified stage Anemia N18.9; D63.1 Anemia type: due to chronic kidney disease Chronic kidney disease stage: unspecified stage Melena K92.1 Secondary hyperparathyroidism N25.81 Heart failure with preserved ejection fraction I50.30 Osteomyelitis M86.9 Type 1 diabetes mellitus E10.9 Hypothyroid E03.9 GERD (gastroesophageal reflux disease) K21.9 (1) Jhgph-fx-mdebzfx kidney injury Acute renal failure type: unspecified Chronic kidney disease stage: unspecified stage Qualified Code(s): N17.9 - Acute kidney failure, unspecified; N18.9 - Chronic kidney disease, unspecified (2) Anemia Anemia type: due to chronic kidney disease Chronic kidney disease stage: unspecified stage Qualified Code(s): N18.9 - Chronic kidney disease, unspecified; D63.1 - Anemia in chronic kidney disease
--- NOTE | 2020-01-03 18:28 | Billing Data ---
Date of Service January 03, 2020 Coding Level of Care Code 68558 Prolonged Care-adt'l 30m
[2020-01-03] MEDS: MAGNESIUM OXIDE 400 MG TAB PO SCH (21:51)
[2020-01-03] MEDS ORDERED: bisacodyL 5 MG TABEC PO ONE (22:13)
[2020-01-04] MEDS: LEVOTHYROXINE SODIUM 112 MCG TABLET PO SCH (06:23)
--- NOTE | 2020-01-04 07:48 | XRay Report ---
XR chest 1V portable HISTORY: PICC placement COMPARISON: Chest 08/06/2019. FINDINGS: The right PICC is looped within the branch of the right axillary vein. This should be remov ed/reposition. The tip terminates in the expected location of the right subclavian vein. No pneumotho rax. Stable blunting of the left lateral costophrenic sulcus. This could represent a trace left pleur al effusion. Linear scarlike density at the left lung base persist. The heart is normal in size. Ther e are poststernotomy changes. No evidence for pulmonary edema. Left-sided dual-chamber pacemaker. IMPRESSION: The right PICC is looped within a branch of the right axillary vein with the tip terminating in the e xpected location of the right subclavian vein. This should be removed/reposition. ACT 112: Negative or not required by law. Electronically signed by: Jamal Dial M.D. 01/04/2020 7:47 AM
--- NOTE | 2020-01-04 07:49 | XRay Report ---
XR chest 1V portable HISTORY: PICC placement COMPARISON: Chest 01/03/2020. FINDINGS: The right PICC has been repositioned and now terminates in the expected location of the sup erior cavoatrial junction. Stable blunting of the left lateral costophrenic sulcus which may represen t a trace left pleural effusion. Scarlike density at the left lung base persist. Left-sided dual-pati ollie pacemaker poststernotomy changes. No evidence for pulmonary edema. No pneumothorax. IMPRESSION: The right PICC has been repositioned and now terminates at the expected location of the superior cavo atrial junction. ACT 112: Negative or not required by law. Electronically signed by: Jamal Dial M.D. 01/04/2020 7:48 AM
[2020-01-04] MEDS: PANTOprazole 40 MG TAB PO SCH (08:12)
[2020-01-04] MEDS: ISOSORBIDE MONO EXTENDED REL 60 MG TABCR PO SCH (08:12)
[2020-01-04] MEDS: APIXABAN 5 MG TABLET PO SCH (08:12)
[2020-01-04] MEDS: SODIUM BICARBONATE 650 MG TAB PO SCH (08:12)
[2020-01-04 09:13] LABS: Creatinine Clr Calc Pharmacy 21.3 ml/min; Est GFR (African American) 22.4; Est GFR (Non-African American) 19.3
[2020-01-04 11:43] VITALS: TEMP 97.9; O2SAT 99
--- NOTE | 2020-01-04 12:12 | Discharge Summary ---
Date of Service January 04, 2020 Admission HPI Per Admitting Provider Pt is a 74 yo gentleman with a complicated PMHx of DMI, CKD stage 4, HFpEF, Atrial fibrillation, HLD, Hypothyroidism, GERD and recent debridement of a diabetic foot ulcer who was admitted with hyperkalemia (K+ of 7.2). Pt states he has been in his usual state of health until he presented for an appointment today with his senior software quality analyst, Dr. Mendoza and had some bloodwork done. His potassium was noted to be elevated and he was called and told to present to the ED. Denies any palpitations, SOB, chest pain, syncope or dizziness. States he has been on Bactrim for treatment of possible osteomyelitis after having a diabetic right heel ulcer debrided last month. Principal Diagnosis hyperkalemia Discharge Exam Constitutional: WD/WN, vitals as above Eyes: normal visual clemens by confrontation and + anicteric sclerae Neck: normal visual inspection and trachea midline Respiratory: normal respiratory effort, lungs clear to auscultation Cardiovascular: Rate/Rhythm: regular rate and regular rhythm Extremities: + edema (R foot) Gastrointestinal (Abdomen): Inspection/Auscultation: abdomen not distended Percussion/Palpation: abdomen soft; abdomen nontender Musculoskeletal: Head/Neck/Chest: normocephalic and head atraumatic Skin: +decreased erythema (R foot) Neurologic: awake; not confused Speech / Cognition: normal speech Psychiatric: A+Ox3, euthymic affec Discharge Data Allergies Allergy/AdvReac Type Severity Reaction Status Date / Time No Known Allergies Allergy Verified 12/31/19 20:22 Consultations 12/31/19 19:12 ED Decision to Admit Stat 12/31/19 23:21 Consult Orthopedic Surgery Routine 01/01/20 09:29 Consult Nephrology Routine 01/03/20 18:26 Consult Case Management - Discharge Planning Routine Hospital Course (1) Acute hyperkalemia: Improved initially with medical management, however did increase again overnight Attributed to RTA and use of Bactrim. Low K diet. -Pt has Hx of this in the past, secondary to RTA -Currently, on Bactrim for 2 weeks for treatment of a diabetic foot ulcer in the setting of CKD. Likely the cause of this added potassium increase. -On presentation, K+ of 7.2. ED treatment with Insulin 10U IV and D50, Veltassa, sodium bicarbonate drip -Also received calcium gluconate for cardioprotection -No dysrhythmias noted K today is 5.4, which is baseline for pt per renal Given rx for PRN veltassa use if K does elevate Restart PO bicarb, home lasix dosing. On day od fidscharge, I had discussion with pathient and Tierce Filler. This appears to have been related with bactrim use. Patient will continue on low potassium (2) Pcrbs-eq-skepuqi kidney injury: -Baseline Cr of 2.1, elevated to 2.8 this visit CKD IV (3) Anemia: Chronic. Treated with IV iron in the past. History of LGIB in the past. Will monitor. No need for PREETHI therapy at this time. Update iron profile with next blood work. (4) Melena: Denies current symptoms. Evaluated during prior admission. (5) Secondary hyperparathyroidism: Managed with vitamin D therapy. No acute indication to adjust treatment. (6) Heart failure with preserved ejection fraction: Afib/Complete Heart Block/CAD/HFpEF -Hx of ablation therapy in [place] in October 2018 for atiral fibrillation -Echo October 2019: Diastolic dysfunction, LVH, EF 50-55% -Continue home eliquis 5mg BID, plavix 75mg, atorvastatin 80mg, ISM 60mg BID -Pacemaker in place (7) Osteomyelitis: Pt had right heel debrided on 12/17/2019 with bone biopsy -concern for osteomyelitis, outpatient treatment currently with Bactrim, however concerns as outpt that this was not fully tx infection Apparently ortho called [facility] on 12/30 and was asked to send cx, etc with plans for further recs forthcoming It is unclear if this was done. -Bactrim held this visit given hyperkalemia above Start dapto 12/31 based on 12/16 wound C&S while awaiting recs Hx of pseudomonas noted on cx in October, does not appear to be growing in most recent cx Will add further coverage if appearance continues to decline Seen by ortho, no plans for changing current conservative management at this time QD dressing changes f/u in office in 2 weeks PICC to be placed. Ongoing dapto, set up by CM prior to d/c (8) Type 1 diabetes mellitus: -Continue own insulin pump -ISS Pt's glucometer is giving different readings than hospital glucometer. Use pt's home glucometer given it is also dosing his insulin to avoid overdosing. (9) Hypothyroid: -Continue home synthroid 112mcg (10) GERD (gastroesophageal reflux disease): continue home meds Total Time Total Time Spent Total Time Spent (In Minutes): 32 Total Time Includes: Examination of the Patient, Discharge Planning and Medication Reconciliation Discharge Plan Discharge Items Patient Disposition: Home - Home Health Services Reason For Visit: HYPERKALEMIA,CKD Discharge Diagnosis: hyperkalemia/ CKD Activity: Resume your previous activity Non-emergency contact: Primary Care Provider Call non-emergency contact if: you have any medication questions Follow-up/Referrals: Kecia Holguin PA-C [Primary Care Provider] - 01/11/20 11:10 am Diet: Low Potassium (2gm) Addtl Attending Provider Instructions: Talon has close follow up with Dr. Bridges scheduled in the outpatient clinic (01/12/20). At this time, I think he would be stable from a nephrology standpoint with close outpatient observation. Plans for 6 weeks of IV antibiotics: daptomycin every other day: next dose tomorrow. Follow-up appointment with Dr. Menchaca on the of this month. Will continue to keep that appointment at this time. Continue daily dressing changes with use of aqua cell AG. Daptomycin 425 mg IV Q48H. Check CK level. Pending Studies at Discharge: No Stand-Alone Forms: [facility], Smoking Cessation Medications and DC Order Prescriptions: New daptomycin 500 mg recon soln 425 mg IV Q48H Qty: 19 RF: 0 Continued cholecalciferol (vitamin D3) 2,000 unit capsule 2,000 units PO HS RF: 0 cyanocobalamin (vitamin B-12) 1,000 mcg capsule 1,000 mcg PO HS RF: 0 magnesium oxide 400 mg capsule 400 mg PO HS RF: 0 (DME) Dexcom G5 Transmitter device See Dose Instructions .ROUTE .MEDSUPPLY Qty: 1 RF: 0 Eliquis 5 mg tablet 5 mg PO BID RF: 0 sodium bicarbonate 650 mg tablet 650 mg PO BID Qty: 180 RF: 3 folic acid 800 mcg tablet 800 mcg PO HS RF: 0 acyclovir 400 mg tablet 400 mg PO HS RF: 0 calcium carb and citrate-vitD3 [Citracal-D3 Slow Release] 600 mg calcium- 500 unit Tablet Extended Release 1 tab PO HS RF: 0 pantoprazole [Protonix] 40 mg tablet,delayed release (DR/EC) 40 mg PO QAM RF: 0 Renal Caps 1 mg capsule 1 cap PO HS RF: 0 nitroglycerin [Nitrostat] 0.4 mg tablet, sublingual 0.4 mg SL Q5M PRN (Reason: chest pain) RF: 0 furosemide [Lasix] 20 mg tablet 20 mg PO DAILY PRN (Reason: Weight Gain) RF: 0 insulin lispro [Humalog U-100 Insulin] 100 unit/mL solution 100 units continuous subcutaneous infusion DAILY RF: 0 levothyroxine [Synthroid] 112 mcg tablet 112 mcg PO QAM RF: 0 PreserVision AREDS-2 428-257-11-1 eo-viqc-ic-mg Capsule 1 tab PO BID RF: 0 isosorbide mononitrate 60 mg tablet extended release 24 hr 60 mg PO BID RF: 0 ferrous sulfate 325 mg (65 mg iron) tablet,delayed release (DR/EC) 325 mg PO HS RF: 0 Changed atorvastatin [Lipitor] 80 mg Tablet 40 mg PO HS Qty: 0 RF: 0 Discontinued sulfamethoxazole-trimethoprim [Bactrim DS] 800-160 mg tablet 1 tab PO Q12H Qty: 20 RF: 0 Discharge Orders: Discharge Order (Routine); Ordered 01/04/20 Ordered By: Denver Humphries Admission Data Admit Date/Time: 12/31/19 21:57 Attending Provider: Denver Humphries Admit Provider: Esmer Lee Primary Care Provider: Kecia Holguin Other Providers: Dejon Cedeno ; Huy Menchaca Kevin C. Other Interventions: Discharge Summary Assessment (RN) Last Done: 01/04/20 12:09 Coding Level of Care Code D/C Day Management >30 mins Diagnoses Acute hyperkalemia E87.5 Aqyfd-gx-qnjnhpe kidney injury N17.9; N18.9 Acute renal failure type: unspecified Chronic kidney disease stage: unspecified stage Anemia N18.9; D63.1 Anemia type: due to chronic kidney disease Chronic kidney disease stage: unspecified stage Melena K92.1 Secondary hyperparathyroidism N25.81 Heart failure with preserved ejection fraction I50.30 Osteomyelitis M86.9 Type 1 diabetes mellitus E10.9 Hypothyroid E03.9 GERD (gastroesophageal reflux disease) K21.9 Time Spent (min) 32
[2020-01-04 12:14] VITALS: BP 130/57; PULSE 76
== END 2020-01-04 12:48 | disposition home health service (06) | DRG 683 ==
LOC: ED 17:57 → 2S 21:57 → SUATTDRO 21:57 → 2S 22:35

== ENCOUNTER 2021-03-12 14:28 | Inpatient (IN) ==
[2021-03-12] MEDS ORDERED: ONDANSETRON INJ 2 MG/ML 2 ML VIAL IV STA (14:37)
--- NOTE | 2021-03-12 14:39 | Emergency Department Note ---
Impression & Plan Fracture of hip, right, closed Admission ED Provider Note HPI: The patient is a 75-year-old gentleman with history of Insulin-dependent diabetes, on an insulin pump, CHF, Atrial fibrillation on Xarelto, presents the emergency department after mechanical fall. Patient states that shortly prior to arrival [place] states that he fell directly on his right hip and his right shoulder. He has pain in both of these areas. Patient denies hitting his head, denies any loss of consciousness. On arrival here to the ED he is in mild to moderate distress secondary to pain, he is otherwise alert, saturating well on room air without any increased work of breathing on my initial evaluation. ROS: - MSK: Fall, R hip pain and R shoulder pain *10 point review systems was conducted and is otherwise negative unless stated above *Outpatient medications and allergy history reviewed PE: General: Alert, NAD HEENT: Normocephalic, atraumatic, trachea midline Eyes: Extraocular eye movement is intact, no scleral erythema Pulmonary: Clear to auscultation bilaterally, no wheezing Cardio: Regular rate and rhythm GI: Abdomen is soft, nontender : No suprapubic tenderness MSK: Patient is unable to move the right lower extremity with flexion at the hip, his foot is externally rotated, he does have a palpable dorsalis pedis pulse on the right side, range of motion is intact distally in the right foot without any asymmetrical swelling or discoloration of the right lower extremity in comparison to the left Skin: No evidence of rash Neuro: Alert, no focal deficits Psychiatric: Cooperative state editor: Order placed, Paced rhythm with a regular rate noted on the monitor EKG:Paced rhythm with a rate of 80 Medical Decision Making: - Patient presented to the emergency department after mechanical fall, he complained of right hip pain and on arrival he does have an externally rotated right lower extremity without any discoloration or asymmetrical swelling, he is unable to flex at the hip. X-ray imaging of the right hip does confirm comminuted intertrochanteric fracture on the right side. Patient is noted to be anticoagulated on Xarelto, left hip does not show any evidence of fracture, x- ray imaging of the right shoulder does not show any evidence of fracture or dislocation, CT imaging of the head does not show any evidence of intracranial bleeding. Case was discussed with [facility] with which the patient has an established relationship, discussed with Dr. Menchaca, he is in agreement for co nsultation. Given the patient's multiple comorbidities he will be admitted to the medicine service. Case was discussed with the on-call APPRENTICE TECHNICIAN, Aries, patient will be admitted to the medicine service for orthopedic consultation and definitive care/operative intervention. * Diagnosis: Intertrochanteric hip fracture, right side * Disposition: Admission Advised outpatient follow up: - Return to the ED with any new or worsening symptoms - PCP in 2-3 Days Conner Fabian DO Emergency Medicine Past Med/Surg History Medical History Anemia Aortic stenosis Ascending aortic aneurysm Basal cell carcinoma of left forehead CAD (coronary artery disease) CHF (congestive heart failure) Chronic kidney disease, stage 4 (severe) Gastric ulcer Herpes zoster History of atrial fibrillation History of atrial flutter History of diabetic ulcer of foot History of kidney stones Hyperlipidemia Hypertension Hypothyroidism Myocardial infarct Osteoarthritis Osteomyelitis Pacemaker Pulmonary hypertension Renal tubular acidosis, type 4 Type 1 diabetes mellitus Surgical History History of amputation of toe History of aortic valve replacement History of appendectomy History of arthroscopy of left shoulder History of cardiac cath History of coronary artery bypass graft x 3 History of cystoscopy History of esophagogastroduodenoscopy (EGD) History of gastric bypass History of hand surgery History of inguinal hernia repair History of laminectomy History of radiofrequency ablation procedure for cardiac arrhythmia History of tonsillectomy Hx of heart artery stent Presence of permanent cardiac pacemaker S/P left knee arthroscopy S/P right knee arthroscopy Status post endovenous radiofrequency ablation of saphenous vein Family History Father Coronary heart disease Myocardial infarction Brother Diabetes Mother Diabetes Cancer Denies family history of Colon cancer Ovarian cancer Prostate cancer Breast cancer Social History Smoking Status: Never smoker Second Hand Exposure: No; Hx Alcohol Use: No Hx Substance Use: No Preferred Language: Romanian Communication Ability: Effective Visual Impairment: No Limitations 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: Normal Resolution Manager Required: No Beliefs That Will Affect Care: None marital status: Current Living Situation: Spouse current occupational status: retired current occupation: Retired Feels Safe at Home: Yes Assistive Devices: Glasses and Walker Allergies Allergies Allergy/AdvReac Type Severity Reaction Status Date / Time sulfamethoxazole AdvReac Severe Hyperkalcem Verified 03/12/21 17:02 [From Bactrim] ia trimethoprim [From Bactrim] AdvReac Severe Hyperkalcem Verified 03/12/21 17:02 ia Home Meds Home Medications Medication Instructions Recorded Confirmed vit C 250 mg-vit E 90 mg-zinc 40 1 tab PO BID 01/04/19 03/12/21 mg-copper 1 [id number] capsule (PreserVision AREDS-2) folic acid 800 mcg tablet 800 mcg PO HS 01/29/19 03/12/21 acyclovir 400 mg tablet 400 mg PO HS 08/06/19 03/12/21 nitroglycerin 0.4 mg sublingual 0.4 mg SL Q5M PRN 11/05/19 03/12/21 tablet (Nitrostat) ferrous sulfate 325 mg (65 mg 325 mg PO UD 03/13/20 03/12/21 iron) tablet,delayed release apixaban 2.5 mg tablet (Eliquis) 2.5 mg PO BID 01/18/21 03/12/21 atorvastatin 40 mg tablet 40 mg PO DAILY 01/18/21 03/12/21 cholecalciferol (vitamin D3) 25 25 mcg PO DAILY 03/12/21 03/12/21 mcg (1,000 unit) tablet levothyroxine 112 mcg tablet 112 mcg PO .6XW 03/12/21 03/12/21 (Synthroid) vitamin B complex and vitamin C 1 cap PO DAILY 03/12/21 03/12/21 no.20-folic acid 1 mg capsule (Rapides Caps) Previous Rx's Medication Instructions Recorded pantoprazole 40 mg tablet,delayed 40 mg PO QAM #90 tab 08/08/20 release (Protonix) calcium carb,cit ER 600 mg-vit D3 1 tab PO HS #90 tab 02/02/21 12.5 mcg (500 unit) tablet,ext.rel (Citracal-D3 Slow Release) insulin lispro 100 unit/mL 100 unit CONTINUOUS SUBCUTANEOUS 03/07/21 subcutaneous solution (Humalog INFUSION DAILY #9 vial U-100 Insulin) Results & Data (ED) Vital Signs Vital Signs - 24 hr 03/12/21 14:53 10/18/21 14:57 03/12/21 15:00 Temperature 36.4 C L Temperature Source Oral Pulse Rate 80 80 80 Pulse Rate from SpO2 Sensor 80 80 Respiratory Rate 20 Respiratory Effort / Characteristics Non-Labored Spontaneous Respiratory Depth Normal Respiratory Pattern Regular Blood Pressure 119/60 119/60 116/62 Blood Pressure Mean 79 79 80 Blood Pressure Position Lying Pulse Oximetry 95 93 92 Oxygen Delivery Method Room Air Sepsis Recent Fever Within 48 Hours No Sepsis New/Unexplained Change in Mental Status No Sepsis Action Taken by Nursing No Action Required 03/12/21 16:00 03/12/21 16:30 Temperature Temperature Source Pulse Rate 80 80 Pulse Rate from SpO2 Sensor 80 80 Respiratory Rate Respiratory Effort / Characteristics Respiratory Depth Respiratory Pattern Blood Pressure 148/78 H 139/72 Blood Pressure Mean 101 94 Blood Pressure Position Pulse Oximetry 98 94 Oxygen Delivery Method Sepsis Recent Fever Within 48 Hours Sepsis New/Unexplained Change in Mental Status Sepsis Action Taken by Nursing Laboratory Data Result diagrams: 03/12/21 14:56 03/12/21 14:56 Lab Results 03/12/21 03/12/21 03/12/21 Range/Units 14:56 14:56 14:56 WBC 7.11 (4.8-10.8) K/uL RBC 3.14 L (4.7-6.1) M/uL Hgb 10.9 L (14.0-18.0) g/dL Hct 33.2 L (42-52) % MCV 105.7 H (80-100) fL MCH 34.7 H (25-34) pg MCHC 32.8 (32-36) g/dL RDW Std Deviation 56.9 H (36.4-46.3) fL RDW Coeff of Seferino 14.8 H (11.5-14.5) % Plt Count 136 (130-400) K/uL MPV 9.7 (7.4-10.4) fL Immature Gran % (Auto) 0.3 % Neut % (Auto) 75.7 % Lymph % (Auto) 12.9 % Metcalfe % (Auto) 9.0 % Eos % (Auto) 1.8 % Baso % (Auto) 0.3 % Neut # (Auto) 5.38 (1.4-6.5) K/uL Lymph # (Auto) 0.92 L (1.2-3.4) K/uL Metcalfe # (Auto) 0.64 H (0.11-0.59) K/uL Eos # (Auto) 0.13 (0-0.5) K/uL Baso # (Auto) 0.02 (0-0.2) K/uL Immature Gran # (Auto) 0.02 (0.00-0.02) K/uL PT 13.2 H (9.0-12.0) Seconds INR 1.3 H (0.9-1.1) APTT 29.3 (21.0-31.0) Seconds PTT Ratio 1.1 Sodium (136-145) mmol/L Potassium (3.5-5.1) mmol/L Chloride (98-107) mmol/L Carbon Dioxide (21-32) mmol/L Anion Gap (3-11) BUN (7-18) mg/dl Creatinine (0.6-1.4) mg/dl Est Cr Clr Drug Dosing Est GFR ( Amer) ml/min Est GFR (Non-Af Amer) ml/min BUN/Creatinine Ratio (10-20) Glucose (70-99) mg/dl Calcium (8.5-10.1) mg/dl Total Bilirubin (0.2-1) mg/dl AST (15-37) U/L ALT (12-78) U/L Alkaline Phosphatase (45-117) U/L Total Protein (6.4-8.2) gm/dl Albumin (3.4-5.0) gm/dl Globulin (2.5-4.0) gm/dl Albumin/Globulin Ratio (0.9-2) Urine Color Urine Appearance (Clear) Urine pH (4.5-7.5) Ur Specific Sundance (1.000-1.030) Urine Protein (Negative) Urine Glucose (UA) (Negative) Urine Ketones (Negative) Urine Blood (Negative) Urine Nitrite (Negative) Urine Bilirubin (Negative) Urine Urobilinogen (Negative) Ur Leukocyte Esterase (Negative) Urine WBC (Auto) (0-5) /hpf Urine RBC (Auto) (0-4) /hpf U Hyaline Cast (Auto) (0-5) /lpf U Epithel Cells (Auto) (0-5) /lpf Urine Bacteria (Auto) (Negative) COVID-19 Eval Order Blood Type O Positive Antibody Screen NEGATIVE 03/12/21 03/12/21 03/12/21 Range/Units 14:56 16:05 16:20 WBC (4.8-10.8) K/uL RBC (4.7-6.1) M/uL Hgb (14.0-18.0) g/dL Hct (42-52) % MCV (80-100) fL MCH (25-34) pg MCHC (32-36) g/dL RDW Std Deviation (36.4-46.3) fL RDW Coeff of Seferino (11.5-14.5) % Plt Count (130-400) K/uL MPV (7.4-10.4) fL Immature Gran % (Auto) % Neut % (Auto) % Lymph % (Auto) % Metcalfe % (Auto) % Eos % (Auto) % Baso % (Auto) % Neut # (Auto) (1.4-6.5) K/uL Lymph # (Auto) (1.2-3.4) K/uL Metcalfe # (Auto) (0.11-0.59) K/uL Eos # (Auto) (0-0.5) K/uL Baso # (Auto) (0-0.2) K/uL Immature Gran # (Auto) (0.00-0.02) K/uL PT (9.0-12.0) Seconds INR (0.9-1.1) APTT (21.0-31.0) Seconds PTT Ratio Sodium 142 (136-145) mmol/L Potassium 4.6 (3.5-5.1) mmol/L Chloride 114 H (98-107) mmol/L Carbon Dioxide 18 L (21-32) mmol/L Anion Gap 10.0 (3-11) BUN 61 H (7-18) mg/dl Creatinine 2.25 H (0.6-1.4) mg/dl Est Cr Clr Drug Dosing Not Reportable Est GFR ( Amer) 31.4 ml/min Est GFR (Non-Af Amer) 27.1 ml/min BUN/Creatinine Ratio 26.9 H (10-20) Glucose 254 H (70-99) mg/dl Calcium 9.0 (8.5-10.1) mg/dl Total Bilirubin 1.3 H (0.2-1) mg/dl AST 43 H (15-37) U/L ALT 50 (12-78) U/L Alkaline Phosphatase 352 H (45-117) U/L Total Protein 6.9 (6.4-8.2) gm/dl Albumin 3.0 L (3.4-5.0) gm/dl Globulin 3.9 (2.5-4.0) gm/dl Albumin/Globulin Ratio 0.8 L (0.9-2) Urine Color Yellow Urine Appearance Clear (Clear) Urine pH 5.0 (4.5-7.5) Ur Specific Sundance 1.016 (1.000-1.030) Urine Protein 2+ H (Negative) Urine Glucose (UA) Negative (Negative) Urine Ketones Negative (Negative) Urine Blood Negative (Negative) Urine Nitrite Negative (Negative) Urine Bilirubin Negative (Negative) Urine Urobilinogen Negative (Negative) Ur Leukocyte Esterase Negative (Negative) Urine WBC (Auto) 1-5 (0-5) /hpf Urine RBC (Auto) 5-10 H (0-4) /hpf U Hyaline Cast (Auto) 1-5 (0-5) /lpf U Epithel Cells (Auto) 5-10 H (0-5) /lpf Urine Bacteria (Auto) Negative (Negative) COVID-19 Eval Order Covid19 at [facility] Blood Type Antibody Screen Administered Medications Sodium Chloride (Nss 1000ml) 1,000 mls @ 250 mls/hr IV .Q4H JOSÉ MIGUEL Stop: 03/12/21 18:44 Last Admin: 03/12/21 14:52 Dose: 250 mls/hr Documented by: [id number] Morphine Sulfate (Morphine Sulfate 4 Mg/Ml 1 Ml Carp\Vial) 4 mg IV Q1H PRN PRN Reason: Severe Pain (Rating 7,8,9,10) Stop: 03/26/21 14:33 Last Admin: 03/12/21 14:52 Dose: 4 mg Documented by: [id number] Discontinued Medications Ondansetron HCl (Ondansetron Inj 2 Mg/Ml 2 Ml Vial) 4 mg IV NOW STA Stop: 03/12/21 14:38 Last Admin: 03/12/21 14:52 Dose: 4 mg Documented by: [id number] Imaging Data Radiologist's Impression: Chest X-Ray 03/12/21 14:34 XR chest 1V portable CLINICAL HISTORY: Fall. COMPARISON STUDY: Chest radiograph January 03, 2020. FINDINGS: Left subclavian pacer, median sternotomy wires and prosthetic cardiac valve are noted. Cardiomegaly is unchanged. There are small bilateral pleural effusions. Several old left rib fractures are present. Mild bibasilar opacities are present. There is pulmonary vascular congestion. There is no pneumothorax. IMPRESSION: 1. No pneumothorax. 2. Small bilateral pleural effusions with associated bibasilar opacities that statistically reflect atelectasis. Radiographic follow-up is recommended. 3. Cardiomegaly. Pulmonary vascular congestion. ACT 112: Negative or not required by law. Electronically signed by: Servando Tidwell M.D. 03/12/2021 3:56 PM Hip X-Ray 03/12/21 14:34 XR hip RT min 2V, XR hip LT min 2V CLINICAL HISTORY: fall R hip pain. Left hip pain. COMPARISON STUDY: None. FINDINGS: There is a displaced and comminuted intertrochanteric fracture within the proximal right femur. No dislocation. No fracture or dislocation within the left hip. The visualized pelvic bones appear intact. IMPRESSION: 1. Displaced and comminuted intertrochanteric fracture of the proximal right femur. 2. No fracture or dislocation within the left hip. ACT 112: Negative or not required by law. Electronically signed by: Jamal Dial M.D. 03/12/2021 3:58 PM Hip X-Ray 03/12/21 14:34 XR hip RT min 2V, XR hip LT min 2V CLINICAL HISTORY: fall R hip pain. Left hip pain. COMPARISON STUDY: None. FINDINGS: There is a displaced and comminuted intertrochanteric fracture within the proximal right femur. No dislocation. No fracture or dislocation within the left hip. The visualized pelvic bones appear intact. IMPRESSION: 1. Displaced and comminuted intertrochanteric fracture of the proximal right femur. 2. No fracture or dislocation within the left hip. ACT 112: Negative or not required by law. Electronically signed by: Jamal Dial M.D. 03/12/2021 3:58 PM Shoulder X-Ray 03/12/21 14:36 XR shoulder RT 1V CLINICAL HISTORY: Fall, R shoulder pain COMPARISON STUDY: Right shoulder 12/12/2018. FINDINGS: The bones are osteopenic. No fracture or dislocation within the right shoulder. The right clavicle appears intact. No soft tissue swelling. There is moderate AC joint arthrosis. Cardiomegaly, poststernotomy changes, a small right pleural effusion is better appreciated on the same day chest radiograph. IMPRESSION: No fracture or dislocation within the right shoulder. ACT 112: Negative or not required by law. Electronically signed by: Jamal Dial M.D. 03/12/2021 3:[address] 03/12/21 14:53 CT head/brain wo con CLINICAL HISTORY: FALL on OAC Technique: Contiguous axial CT images of the head were acquired from the base of the skull to the vertex without intravenous contrast administration. Images were viewed in brain, subdural and bone windows. Automated dose lowering techniques and/or adjustment according to patient size were utilized for this exam. Comparison: None available at the time of this dictation. Findings: The ventricles, basal cisterns, and cerebral sulci are normal. There is no acute intracranial hemorrhage or evidence of acute territorial infarction. Neither mass effect, shift of the midline structures, nor abnormal extra-axial fluid collections are shown. Imaged portions of the paranasal sinuses and mastoid air cells are clear. The orbits appear normal. There are no acute fractures of the calvaria or scalp swelling. Impression: No acute intracranial hemorrhage, evidence of acute territorial infarction, or other acute intracranial disease process. ACT 112: Negative or not required by law. Electronically signed by: Braulio Barajas M.D. 03/12/2021 3:22 PM Discharge Plan Visit Data Chief Complaint: Hip Pain Stated Complaint: fall, hip pain ED Provider: Conner Fabian Discharge Problem: Fracture of hip, right, closed Forms Stand Alone Forms: [facility] [employer] Prescriptions Prescriptions: No Action pantoprazole [Protonix] 40 mg tablet,delayed release (DR/EC) 40 mg PO QAM Qty: 90 RF: 3 calcium carb and citrate-vitD3 [Citracal-D3 Slow Release] 600 mg-12.5 mcg (500 unit) tablet extended release 1 tab PO HS Qty: 90 RF: 3 insulin lispro [Humalog U-100 Insulin] 100 unit/mL solution 100 unit continuous subcutaneous infusion DAILY Qty: 9 RF: 3 Eliquis 2.5 mg tablet 2.5 mg PO BID RF: 0 atorvastatin 40 mg tablet 40 mg PO DAILY RF: 0 folic acid 800 mcg tablet 800 mcg PO HS RF: 0 acyclovir 400 mg tablet 400 mg PO HS RF: 0 nitroglycerin [Nitrostat] 0.4 mg tablet, sublingual 0.4 mg SL Q5M PRN (Reason: chest pain) RF: 0 PreserVision AREDS-2 [id number]-mg Capsule 1 tab PO BID RF: 0 ferrous sulfate 325 mg (65 mg iron) tablet,delayed release (DR/EC) 325 mg PO UD RF: 0 levothyroxine [Synthroid] 112 mcg tablet 112 mcg PO .6XW RF: 0 Rapides Caps 1 mg capsule 1 cap PO DAILY RF: 0 cholecalciferol (vitamin D3) 25 mcg (1,000 unit) Tablet 25 mcg PO DAILY RF: 0 Referrals Referrals: Guancao Esteban MD [Primary Care Provider] - Discharge Problem: Fracture of hip, right, closed Qualifiers: Encounter type: initial encounter Qualified Code(s): S72.001A - Fracture of unspecified part of neck of right femur, initial encounter for closed fracture
[2021-03-12] MEDS ORDERED: SODIUM CHLORIDE 0.9% 1000ML 1,000 ML IV SCH (14:45)
[2021-03-12] MEDS: MoRPHine SULFATE 4 MG/ML 1 ML CARP\\VIAL IV PRN ×2 (14:52→19:04)
[2021-03-12 15:06] LABS: Basophils # (auto) 0.02 K/uL (0-0.2); Basophils % (auto) 0.3 %; Eosinophils # (auto) 0.13 K/uL (0-0.5); Eosinophils % (auto) 1.8 %; Hematocrit (blood only) 33.2 % (42-52); Hemoglobin 10.9 g/dL (14.0-18.0); Immature Granulocytes # (auto) 0.02 K/uL (0.00-0.02); Immature Granulocytes % (auto) 0.3 %; Lymphocytes # (auto) 0.92 K/uL (1.2-3.4); Lymphocytes % (auto) 12.9 %; Mean Corpuscular Hemoglobin 34.7 pg (25-34); Mean Corpuscular Hgb Conc 32.8 g/dL (32-36); Mean Corpuscular Volume 105.7 fL (80-100); Mean Platelet Volume 9.7 fL (7.4-10.4); Monocytes # (auto) 0.64 K/uL (0.11-0.59); Neutrophils # (auto) 5.38 K/uL (1.4-6.5); Neutrophils % (auto) 75.7 %; Platelet Count 136 K/uL (130-400); RDW Coefficient of Variation 14.8 % (11.5-14.5); RDW Standard Deviation 56.9 fL (36.4-46.3); Red Blood Count 3.14 M/uL (4.7-6.1); White Blood Count 7.11 K/uL (4.8-10.8)
[2021-03-12 15:18] LABS: INR 1.3 (0.9-1.1); Partial Thromboplastin Ratio 1.1; Partial Thromboplastin Time 29.3 Seconds (21.0-31.0); Prothrombin Time 13.2 Seconds (9.0-12.0)
--- NOTE | 2021-03-12 15:23 | CT Scan Report ---
CT head/brain wo con CLINICAL HISTORY: FALL on OAC Technique: Contiguous axial CT images of the head were acquired from the base of the skull to the valerie amado without intravenous contrast administration. Images were viewed in brain, subdural and bone [facility]. Automated dose lowering techniques and/or adjustment according to patient size were utilized for this exam. Comparison: None available at the time of this dictation. Findings: The ventricles, basal cisterns, and cerebral sulci are normal. There is no acute intracranial hemorrh age or evidence of acute territorial infarction. Neither mass effect, shift of the midline structures , nor abnormal extra-axial fluid collections are shown. Imaged portions of the paranasal sinuses and mastoid air cells are clear. The orbits appear normal. There are no acute fractures of the calvaria or scalp swelling. Impression: No acute intracranial hemorrhage, evidence of acute territorial infarction, or other acute intracrani al disease process. ACT 112: Negative or not required by law. Electronically signed by: Braulio Barajas M.D. 03/12/2021 3:22 PM
[2021-03-12 15:39] LABS: Alanine Aminotransferase 50 U/L (12-78); Aspartate Aminotransferase 43 U/L (15-37); BUN Creatinine Ratio 26.9 (10-20); Blood Urea Nitrogen 61 mg/dl (7-18); Carbon Dioxide 18 mmol/L (21-32); Chloride 114 mmol/L (98-107); Est GFR (African American) 31.4 ml/min; Est GFR (Non-African American) 27.1 ml/min; Glucose 254 mg/dl (70-99); Potassium 4.6 mmol/L (3.5-5.1); Sodium 142 mmol/L (136-145)
[2021-03-12 15:42] LABS: Albumin Globulin Ratio 0.8 (0.9-2); Alkaline Phosphatase 352 U/L (45-117); Bilirubin,Total 1.3 mg/dl (0.2-1); Globulin 3.9 gm/dl (2.5-4.0); Total Protein 6.9 gm/dl (6.4-8.2)
--- NOTE | 2021-03-12 15:57 | XRay Report ---
XR shoulder RT 1V CLINICAL HISTORY: Fall, R shoulder pain COMPARISON STUDY: Right shoulder 12/12/2018. FINDINGS: The bones are osteopenic. No fracture or dislocation within the right shoulder. The right c lavicle appears intact. No soft tissue swelling. There is moderate AC joint arthrosis. Cardiomegaly, poststernotomy changes, a small right pleural effusion is better appreciated on the same day chest ra diograph. IMPRESSION: No fracture or dislocation within the right shoulder. ACT 112: Negative or not required by law. Electronically signed by: Jamal Dial M.D. 03/12/2021 3:56 PM
--- NOTE | 2021-03-12 15:57 | XRay Report ---
XR chest 1V portable CLINICAL HISTORY: Fall. COMPARISON STUDY: Chest radiograph January 03, 2020. FINDINGS: Left subclavian pacer, median sternotomy wires and prosthetic cardiac valve are noted. Card iomegaly is unchanged. There are small bilateral pleural effusions. Several old left rib fractures ar e present. Mild bibasilar opacities are present. There is pulmonary vascular congestion. There is no pneumothorax. IMPRESSION: 1. No pneumothorax. 2. Small bilateral pleural effusions with associated bibasilar opacities that statistically reflect a telectasis. Radiographic follow-up is recommended. 3. Cardiomegaly. Pulmonary vascular congestion. ACT 112: Negative or not required by law. Electronically signed by: Servando Tidwell M.D. 03/12/2021 3:56 PM
--- NOTE | 2021-03-12 15:59 | XRay Report ---
XR hip RT min 2V, XR hip LT min 2V CLINICAL HISTORY: fall R hip pain. Left hip pain. COMPARISON STUDY: None. FINDINGS: There is a displaced and comminuted intertrochanteric fracture within the proximal right fe mur. No dislocation. No fracture or dislocation within the left hip. The visualized pelvic bones appe ar intact. IMPRESSION: 1. Displaced and comminuted intertrochanteric fracture of the proximal right femur. 2. No fracture or dislocation within the left hip. ACT 112: Negative or not required by law. Electronically signed by: Jamal Dial M.D. 03/12/2021 3:58 PM
[2021-03-12 16:37] LABS: Appearance Urine Clear (Clear); Bacteria Urine Automated Negative (Negative); Bilirubin Urine Negative (Negative); Blood Urine Negative (Negative); Color Urine Yellow; Glucose Urine UA Negative (Negative); Ketones Urine Negative (Negative); Leukocyte Esterase Urine Negative (Negative); Nitrite Urine Negative (Negative); Protein Urine 2+ (Negative); Specific Gravity Urine 1.016 (1.000-1.030); Urobilinogen Urine Negative (Negative)
[2021-03-12] MEDS ORDERED: PHARMACY GLYCEMIC MGMT CONSULT PRN (17:45)
--- NOTE | 2021-03-12 18:16 | XRay Report ---
XR elbow RT 2V CLINICAL HISTORY: rule out fracture TECHNIQUE: 3 views of the right elbow were obtained. Comparison: None available at the time of this dictation. FINDINGS: There is no prominence of the anterior or posterior fat pads to suggest an effusion. There is no evid ence of an acute fracture. The alignment is anatomic. The visualized joint spaces are well-maintained . Atherosclerotic calcifications are seen. IMPRESSION: No evidence of acute fracture or dislocation. ACT 112: Negative or not required by law. Electronically signed by: Braulio Barajas M.D. 03/12/2021 6:15 PM
--- NOTE | 2021-03-12 18:20 | History & Physical Report ---
Date of Service March 12, 2021 Assessment & Plan (1) Intertrochanteric fracture of femur: Plan: Close displaced intertrochanteric fracture of the proximal right femur- shortening of leg and lateral rotation - Orthopaedics consulted - appreciate assistance and recommendations - Last dose of Apixaban this morning- hold 48 hours through postoperative phase until ensured bleeding hemostasis - Traction being placed - continue - Pain control - Mild- Tylenol PO/IV if NPO, Mod- Oxy IR 5mg PO, Severe Hydromorphone - Kobe to left leg, SCDs- chemoprophy if needed post operative - Tentatively scheduled for FRI- NPO Midnight (Fri 0000 am) Anesthesia consult placed Cardiology consult placed (2) Pulmonary HTN: Plan: Diagnosed with cardiac cath- PA 55 with mean 36 - no outpatient medications - ECHO in morning - cardiology consult - Was starting palliative care for this (3) CAD (coronary artery disease): Plan: Disease to rincon and bypass grafts - Not on ASA - Continue Atorvastatin 40 mg daily - BB discontinued secondary to activity intolerance and some hypotensive episodes - consider IV Metoprolol if needed - ECG in morning - ECHO - Cardiology consult appreciated (4) CHF (congestive heart failure): Plan: Chronic RV failure secondary to Pulm HTN- Preserved LVF - Diurese PRN - No evidence of cor pulmonale at this time (5) Presence of permanent cardiac pacemaker: Plan: DDD pacemaker lower rate 80 - last checked 10/13 - no acute needs- appropriate V pace and fire with afib (6) Hypertension: Plan: As above - appears well controlled - not on LINDA/ARB with renal dysfunction (7) Diabetes mellitus type I: Plan: Insulin pump as outpatient- discontinue transition to sub q - Pharmacy consult placed to assist with controling through pre-op/intra-op/post-operative phase - carb consistent diet - Goal <180 (8) Atrial fibrillation: Plan: Rate controlled - Apixaban on hold secondary to operative case - Restart apixaban when hemostasis postoperatively cleared (9) Hypothyroid: Plan: Continue with Synthroid - TSH in morning (10) Chronic kidney disease, stage 4 (severe): Plan: Follows with nephrology - follow daily with BMP - Avoid further nephrotoxin medications as able - 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 - BUN elevated- likely pre-renal- will provide IVF hydration overnight (11) Venous stasis ulcer: Plan: Chronic TEDS as ablve (12) Diabetic ulcer of right heel: Plan: Healing well follows with wound care - currently no need for dressings (13) Renal tubular acidosis, type 4: Plan: Noted low HCO3 - Potassium stable History of Present Illness Chief Complaint: fall Primary Care Provider: Guanaco Esteban MD 75 YOM with past medical history of: CBAG x4 1993 with repeat grafting in 2012 with bioprosthetic Aortic Valve placement, Cath in 2019- (See Cardiology report 07/16) complete heart block with Dual chamber pacemaker 2012, afib/aflutter 2017- on Apixaban at 2.5 mg PO BID, Pulmonary HTN diagnosed with cardiac cath in 06/14- PAP 55 with mean of 36- with right sided heart failure, DM (on insulin pump), diabetic foot ulcer with osteomyelitis (well healing right heal), CKD III, weight loss, RTA type 4 (noted low HCO3). Patient comes to the EMD today [place]. He reports tripping over a rug and directly landing on his right hip. He felt immediate pain to that side. He was brought to the EMD via EMS. In the EMD he had CXR done, bilateral hip films, shoulder Xray, CT scan of the head performed. His xray of his right hip revealed displaced and comminuted intertrochanteric fracture within the proximal right femur. Orthopaedics was consulted. Patient took his Apixaban this morning (03/12/21). For his heart disease- he is able to lay flat without dyspnea and able to perform small tasks around the house. He recently had his pacemaker lower rate set to 80BPM and his Bystolic was discontinued. The patient remains with some lower extremity edema that goes to his knee, he reports that his BUMEX was discontinued secondary goal diuresing and weight decrease. He has never smoked and reports his A1C in the 6 range. His last ECHO appears to be in November 12 noted with elevated PA pressures, normal Aortic Valve and mild MR. EF 60% with dilated RV- TPASE 0.8. Will consult his Digital Project Manager that follows him as outpatient evaluate him as well. 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 Patient perioperative risk for IL or Cardiac Arrest is 1.42%, His revised ARLIN criteria for IL, PE, V-fib, Cardiac arrest >11%. Allergies Allergy/AdvReac Type Severity Reaction Status Date / Time sulfamethoxazole AdvReac Severe Hyperkalcem Verified 03/12/21 17:02 [From Bactrim] ia trimethoprim [From Bactrim] AdvReac Severe Hyperkalcem Verified 03/12/21 17:02 ia Home Medications Medication Instructions Recorded Confirmed Type vit C 250 mg-vit E 90 mg-zinc 40 1 tab PO BID 01/04/19 03/12/21 History mg-copper 1 [id number] capsule (PreserVision AREDS-2) folic acid 800 mcg tablet 800 mcg PO HS 01/29/19 03/12/21 History acyclovir 400 mg tablet 400 mg PO HS 08/06/19 03/12/21 History nitroglycerin 0.4 mg sublingual 0.4 mg SL Q5M PRN 11/05/19 03/12/21 History tablet (Nitrostat) ferrous sulfate 325 mg (65 mg 325 mg PO UD 03/13/20 03/12/21 History iron) tablet,delayed release pantoprazole 40 mg tablet,delayed 40 mg PO QAM #90 tab 08/08/20 03/12/21 Rx release (Protonix) apixaban 2.5 mg tablet (Eliquis) 2.5 mg PO BID 01/18/21 03/12/21 History atorvastatin 40 mg tablet 40 mg PO DAILY 01/18/21 03/12/21 History calcium carb,cit ER 600 mg-vit D3 1 tab PO HS #90 tab 02/02/21 03/12/21 Rx 12.5 mcg (500 unit) tablet,ext.rel (Citracal-D3 Slow Release) insulin lispro 100 unit/mL 100 unit CONTINUOUS SUBCUTANEOUS 03/07/21 03/12/21 Rx subcutaneous solution (Humalog INFUSION DAILY #9 vial U-100 Insulin) cholecalciferol (vitamin D3) 25 25 mcg PO DAILY 03/12/21 03/12/21 History mcg (1,000 unit) tablet levothyroxine 112 mcg tablet 112 mcg PO .6XW 03/12/21 03/12/21 History (Synthroid) vitamin B complex and vitamin C 1 cap PO DAILY 03/12/21 03/12/21 History no.20-folic acid 1 mg capsule ([place] Caps) Past Med/Surg History Medical History Anemia Aortic stenosis s/p AVR (2012) Ascending aortic aneurysm under surveillance by Dr. Mendoza (stable since 2005) Basal cell carcinoma of left forehead CAD (coronary artery disease) IBRAHIMA (05/2019), + stent 2006, CABGx3 (1993) CHF (congestive heart failure) Chronic kidney disease, stage 4 (severe) [place] Brid[place] [place] Gastric ulcer Herpes zoster History of atrial fibrillation on Eliquis History of atrial flutter on Eliquis History of diabetic ulcer of foot History of kidney stones Hyperlipidemia Hypertension Hypothyroidism Myocardial infarct 05/2018 - [facility] Osteoarthritis Osteomyelitis Pacemaker 2012 - Relevvant- last check 09/2019 Pulmonary hypertension Renal tubular acidosis, type 4 2/2 CKD, managed with low dose furosemide Type 1 diabetes mellitus insulin pump Surgical History History of amputation of toe Right big toe partial amputation: 01/19/19: MAC sedation at [facility] History of aortic valve replacement 2012 History of appendectomy History of arthroscopy of left shoulder History of cardiac cath 05/2019 w/ 1 drug eluting stent 2016 - [facility] STENTS/ANGIOPLASTY 2006 - [facility] [place] - 1 STENT PLACED 2011 - [facility] [place] - STENTS 1993 --> CABG History of coronary artery bypass graft x 3 1993 History of cystoscopy W/ STONE EXTRACTION 03/20/17: LMA #5 History of esophagogastroduodenoscopy (EGD) History of gastric bypass 20 YEARS AGO - FOR DM History of hand surgery Lt History of inguinal hernia repair Rt 03/02/14: MAC #4, ETT #7.5, Oral, Grade 2 View History of laminectomy CERVICAL SPINE History of radiofrequency ablation procedure for cardiac arrhythmia History of tonsillectomy Hx of heart artery stent Presence of permanent cardiac pacemaker S/P left knee arthroscopy S/P right knee arthroscopy Status post endovenous radiofrequency ablation of saphenous vein Family History Father Coronary heart disease Myocardial infarction Brother Diabetes Mother Diabetes Cancer Denies family history of Colon cancer Ovarian cancer Prostate cancer Breast cancer Social History Smoking Status: Never smoker Second Hand Exposure: No; Hx Alcohol Use: No Hx Substance Use: No Preferred Language: Pakistani Communication Ability: Effective Visual Impairment: No Limitations 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: Normal Director Audience Marketing Required: No Beliefs That Will Affect Care: None marital status: Current Living Situation: Spouse current occupational status: retired current occupation: Retired Other Information That Helps Us Care for You: No Feels Safe at Home: Yes Safety Concerns: Feels Safe At This Time Assistive Devices: None Review of Systems Review of Systems: REVIEW OF SYSTEMS: Constitutional: No fever, sweats or chills Eyes: No diplopia, no worsening or blurred vision ENT: normal hearing, no trouble swallowing Respiratory: (+) dyspnea with exertion, No cough, sputum, dyspnea at rest or on exertion Cardiovascular: (+) lower extremity edema, No chest pain, tightness or palpitations Abdomen: No pain, nausea, vomiting, diarrhea or constipation Musculoskeletal: (+) right hip, right shoulder, right elbow pain, calf pain, swelling Neurologic: No weakness, numbness/tingling, or balance problems Psychiatric: No anxiety or depression Skin: No rash or itch Physical Exam Physical Exam: PHYSICAL EXAM: General: awake, alert, Head: Normocephalic, atraumatic ENT: PERRLA, EOMI, no pharyngeal exudate, mucous membranes moist Neuro: AAO x 3, speech clear and appropriate, strength intact bilaterally 5/5 (except right lower extremity), sensation intact and equal all extremities and dermatomes, no pronator drift Chest: equal rise and fall of the chest, no accessory muscle use, no heaves or thrills, Clear to auscultation, on room air, Cardiac: Regular rate and rhythm, telemetry reviewed- Afib, skin warm dry, cap refill <3 seconds, peripheral pulses +2 no JVD, no murmur, +1 edema to left and right lower extremity up to knee GI: NABS x 4 quadrants, soft, nontender to palpation, no rebound, guarding or tenderness : Edouard to gravity voiding, no pain, no CVA tenderness, Extremities: Normal inspection, no peripheral edema or erythema, calfs nontender to palpation Psych: Normal mood and affect Skin: no rash or erythema Results & Data Results & Data ([facility]) Vital Signs (Past 12 Hours) Vital Signs Temp Pulse Resp BP Pulse Ox 03/12/21 16:30 80 139/72 94 03/12/21 16:00 80 148/78 H 98 03/12/21 15:00 80 116/62 92 03/12/21 14:57 80 119/60 93 03/12/21 14:53 36.4 C L 80 20 119/60 95 Laboratory Results Abnormal lab results 03/12/21 03/12/21 03/12/21 Range/Units 14:56 14:56 14:56 RBC 3.14 L (4.7-6.1) M/uL Hgb 10.9 L (14.0-18.0) g/dL Hct 33.2 L (42-52) % MCV 105.7 H (80-100) fL MCH 34.7 H (25-34) pg RDW Std Deviation 56.9 H (36.4-46.3) fL RDW Coeff of Seferino 14.8 H (11.5-14.5) % Lymph # (Auto) 0.92 L (1.2-3.4) K/uL Sibley # (Auto) 0.64 H (0.11-0.59) K/uL PT 13.2 H (9.0-12.0) Seconds INR 1.3 H (0.9-1.1) Chloride 114 H (98-107) mmol/L Carbon Dioxide 18 L (21-32) mmol/L BUN 61 H (7-18) mg/dl Creatinine 2.25 H (0.6-1.4) mg/dl BUN/Creatinine Ratio 26.9 H (10-20) Glucose 254 H (70-99) mg/dl Total Bilirubin 1.3 H (0.2-1) mg/dl AST 43 H (15-37) U/L Alkaline Phosphatase 352 H (45-117) U/L Albumin 3.0 L (3.4-5.0) gm/dl Albumin/Globulin Ratio 0.8 L (0.9-2) Urine Protein (Negative) Urine RBC (Auto) (0-4) /hpf U Epithel Cells (Auto) (0-5) /lpf 03/12/21 Range/Units 16:20 RBC (4.7-6.1) M/uL Hgb (14.0-18.0) g/dL Hct (42-52) % MCV (80-100) fL MCH (25-34) pg RDW Std Deviation (36.4-46.3) fL RDW Coeff of Seferino (11.5-14.5) % Lymph # (Auto) (1.2-3.4) K/uL Sibley # (Auto) (0.11-0.59) K/uL PT (9.0-12.0) Seconds INR (0.9-1.1) Chloride (98-107) mmol/L Carbon Dioxide (21-32) mmol/L BUN (7-18) mg/dl Creatinine (0.6-1.4) mg/dl BUN/Creatinine Ratio (10-20) Glucose (70-99) mg/dl Total Bilirubin (0.2-1) mg/dl AST (15-37) U/L Alkaline Phosphatase (45-117) U/L Albumin (3.4-5.0) gm/dl Albumin/Globulin Ratio (0.9-2) Urine Protein 2+ H (Negative) Urine RBC (Auto) 5-10 H (0-4) /hpf U Epithel Cells (Auto) 5-10 H (0-5) /lpf Diagnostic Findings Chest X-Ray 03/12/21 14:34 XR chest 1V portable CLINICAL HISTORY: Fall. COMPARISON STUDY: Chest radiograph January 03, 2020. FINDINGS: Left subclavian pacer, median sternotomy wires and prosthetic cardiac valve are noted. Cardiomegaly is unchanged. There are small bilateral pleural effusions. Several old left rib fractures are present. Mild bibasilar opacities are present. There is pulmonary vascular congestion. There is no pneumothorax. IMPRESSION: 1. No pneumothorax. 2. Small bilateral pleural effusions with associated bibasilar opacities that statistically reflect atelectasis. Radiographic follow-up is recommended. 3. Cardiomegaly. Pulmonary vascular congestion. ACT 112: Negative or not required by law. Electronically signed by: Servando Tidwell M.D. 03/12/2021 3:56 PM Hip X-Ray 03/12/21 14:34 XR hip RT min 2V, XR hip LT min 2V CLINICAL HISTORY: fall R hip pain. Left hip pain. COMPARISON STUDY: None. FINDINGS: There is a displaced and comminuted intertrochanteric fracture within the proximal right femur. No dislocation. No fracture or dislocation within the left hip. The visualized pelvic bones appear intact. IMPRESSION: 1. Displaced and comminuted intertrochanteric fracture of the proximal right femur. 2. No fracture or dislocation within the left hip. ACT 112: Negative or not required by law. Electronically signed by: Jamal Dial M.D. 03/12/2021 3:58 PM Hip X-Ray 03/12/21 14:34 XR hip RT min 2V, XR hip LT min 2V CLINICAL HISTORY: fall R hip pain. Left hip pain. COMPARISON STUDY: None. FINDINGS: There is a displaced and comminuted intertrochanteric fracture within the proximal right femur. No dislocation. No fracture or dislocation within the left hip. The visualized pelvic bones appear intact. IMPRESSION: 1. Displaced and comminuted intertrochanteric fracture of the proximal right femur. 2. No fracture or dislocation within the left hip. ACT 112: Negative or not required by law. Electronically signed by: Jamal Dial M.D. 03/12/2021 3:58 PM Shoulder X-Ray 03/12/21 14:36 XR shoulder RT 1V CLINICAL HISTORY: Fall, R shoulder pain COMPARISON STUDY: Right shoulder 12/12/2018. FINDINGS: The bones are osteopenic. No fracture or dislocation within the right shoulder. The right clavicle appears intact. No soft tissue swelling. There is moderate AC joint arthrosis. Cardiomegaly, poststernotomy changes, a small right pleural effusion is better appreciated on the same day chest radiograph. IMPRESSION: No fracture or dislocation within the right shoulder. ACT 112: Negative or not required by law. Electronically signed by: Jamal Dial M.D. 03/12/2021 3:[address] 03/12/21 14:53 CT head/brain wo con CLINICAL HISTORY: FALL on OAC Technique: Contiguous axial CT images of the head were acquired from the base of the skull to the vertex without intravenous contrast administration. Images were viewed in brain, subdural and bone windows. Automated dose lowering techniques and/or adjustment according to patient size were utilized for this exam. Comparison: None available at the time of this dictation. Findings: The ventricles, basal cisterns, and cerebral sulci are normal. There is no acute intracranial hemorrhage or evidence of acute territorial infarction. Neither mass effect, shift of the midline structures, nor abnormal extra-axial fluid collections are shown. Imaged portions of the paranasal sinuses and mastoid air cells are clear. The orbits appear normal. There are no acute fractures of the calvaria or scalp swelling. Impression: No acute intracranial hemorrhage, evidence of acute territorial infarction, or other acute intracranial disease process. ACT 112: Negative or not required by law. Electronically signed by: Braulio Barajas M.D. 03/12/2021 3:22 PM Elbow X-Ray 03/12/21 17:37 XR elbow RT 2V CLINICAL HISTORY: rule out fracture TECHNIQUE: 3 views of the right elbow were obtained. Comparison: None available at the time of this dictation. FINDINGS: There is no prominence of the anterior or posterior fat pads to suggest an effusion. There is no evidence of an acute fracture. The alignment is anatomic. The visualized joint spaces are well-maintained. Atherosclerotic calcifications are seen. IMPRESSION: No evidence of acute fracture or dislocation. ACT 112: Negative or not required by law. Electronically signed by: Braulio Barajas M.D. 03/12/2021 6:15 PM Medications Administered Home Medications vit C 250 mg-vit E 90 mg-zinc 40 mg-copper 1 [id number] capsule (PreserVision AREDS-2) 1 tab PO BID 01/04/19 [History Confirmed 03/12/21] folic acid 800 mcg tablet 800 mcg PO HS 01/29/19 [History Confirmed 03/12/21] acyclovir 400 mg tablet 400 mg PO HS 08/06/19 [History Confirmed 03/12/21] nitroglycerin 0.4 mg sublingual tablet (Nitrostat) 0.4 mg SL Q5M PRN 11/05/19 [History Confirmed 03/12/21] ferrous sulfate 325 mg (65 mg iron) tablet,delayed release 325 mg PO UD 03/13/20 [History Confirmed 03/12/21] pantoprazole 40 mg tablet,delayed release (Protonix) 40 mg PO QAM #90 tab 08/08/20 [Rx Confirmed 03/12/21] apixaban 2.5 mg tablet (Eliquis) 2.5 mg PO BID 01/18/21 [History Confirmed 03/12/21] atorvastatin 40 mg tablet 40 mg PO DAILY 01/18/21 [History Confirmed 03/12/21] calcium carb,cit ER 600 mg-vit D3 12.5 mcg (500 unit) tablet,ext.rel (Citracal- D3 Slow Release) 1 tab PO HS #90 tab 02/02/21 [Rx Confirmed 03/12/21] insulin lispro 100 unit/mL subcutaneous solution (Humalog U-100 Insulin) 100 unit CONTINUOUS SUBCUTANEOUS INFUSION DAILY #9 vial 03/07/21 [Rx Confirmed 03/12/21] cholecalciferol (vitamin D3) 25 mcg (1,000 unit) tablet 25 mcg PO DAILY 03/12/21 [History Confirmed 03/12/21] levothyroxine 112 mcg tablet (Synthroid) 112 mcg PO .6XW 03/12/21 [History Confirmed 03/12/21] vitamin B complex and vitamin C no.20-folic acid 1 mg capsule ([place] Caps) 1 cap PO DAILY 03/12/21 [History Confirmed 03/12/21] Active Medications Heparin Sodium (Porcine) (Heparin Sod 5,000 Unit/0.5 Ml Vial) 5,000 units SQ Q8 JOSÉ MIGUEL Stop: 04/11/21 21:59 Miscellaneous Information (Pharmacy Glycemic Mgmt Consult) 1 ea N/A UD PRN PRN Reason: Consult Stop: 04/11/21 17:44 Morphine Sulfate (Morphine Sulfate 4 Mg/Ml 1 Ml Carp\Vial) 4 mg IV Q1H PRN PRN Reason: Severe Pain (Rating 7,8,9,10) Stop: 03/26/21 14:33 Last Admin: 03/12/21 14:52 Dose: 4 mg Documented by: Morphine Sulfate (Morphine Sulfate 4 Mg/Ml 1 Ml Carp\Vial) 4 mg IV Q1H PRN PRN Reason: Severe Pain (Rating 7,8,9,10) Stop: 03/26/21 14:33 Last Admin: 03/12/21 14:52 Dose: 4 mg Documented by: [id number] Discontinued Medications Sodium Chloride (Nss 1000ml) 1,000 mls @ 250 mls/hr IV .Q4H JOSÉ MIGUEL Stop: 03/12/21 18:44 Last Admin: 03/12/21 14:52 Dose: 250 mls/hr Documented by: [id number] Ondansetron HCl (Ondansetron Inj 2 Mg/Ml 2 Ml Vial) 4 mg IV NOW STA Stop: 03/12/21 14:38 Last Admin: 03/12/21 14:52 Dose: 4 mg Documented by: [id number] ECG Additional Comments: Poor data quality, interpretation may be adversely affected Ventricular-paced rhythm Abnormal ECG When compared with ECG of 20-JAN-2020 17:06, Vent. rate has increased BY 10 BPM Code Status & VTE Plan Code Status CODE: FULL VTE: SCDs, TEDS, Supervising Physician Co-Signing Physician Notes 75 yo M is seen and examined at bedside. During face to face encounter with patient, obtained a history and physical examination. Discussed case with AUGUSTUS Kearns. I reviewed above note and agree with it. Patient will be admitted with fracture of femur and will consult ortho. PG Care Time/CCT Total # of Minutes Spent Total Time Spent with Patient: Total time spent is greater than 50% in coordination of care (as documented) at patient's floor/unit and/or counseling patient: Coding Level of Care Code 44834 Initial Inpt Care Lvl 3 Diagnoses Intertrochanteric fracture of femur S72.143A CHF (congestive heart failure) I50.9 Diabetic ulcer of right heel E11.621; L97.419 Diabetes mellitus type I E10.9 Hypothyroid E03.9 Atrial fibrillation I48.91 Chronic kidney disease, stage 4 (severe) N18.4 Venous stasis ulcer I83.009; L97.909 Hypertension I10 Renal tubular acidosis, type 4 N25.89 Pulmonary HTN I27.20 CAD (coronary artery disease) I25.10 Presence of permanent cardiac pacemaker Z95.0
--- NOTE | 2021-03-12 19:14 | XRay Report ---
XR shoulder RT 1V, XR humerus RT 2V CLINICAL HISTORY: pain TECHNIQUE: 1 views of the right shoulder were obtained. 2 views of the right forearm were obtained. Comparison: None available at the time of this dictation. FINDINGS: Limited evaluation of the shoulder due to crosstable technique. There is no evidence of acute fractur e, subluxation, or dislocation. The overlying soft tissues are unremarkable. Vascular calcifications are seen. Visualized portions of the lungs are clear. IMPRESSION: No evidence of acute bony injury. ACT 112: Negative or not required by law. Electronically signed by: Braulio Barajas M.D. 03/12/2021 7:12 PM
--- NOTE | 2021-03-12 20:11 | Progress Notes ---
CHIEF COMPLAINT: Right hip pain. HISTORY OF PRESENT ILLNESS: The patient is a 75-year-old gentleman known to me from a foot osteomyel itis, status post amputation of the big toe approximately 2 years ago. [place] [facility] he tripped with his left foot, landing on his right side directly injuring the right hip and right arm area. He was brought to the ER where he was evaluated and diagnosed with a right proximal femur/intertroch/subtrochanteric femoral fracture. He is being admitted to medicine. He has not had any prior history of right hip injuries or problems. He does not ambulate with an ass istive device. He complains of some pain in the right shoulder, arm, elbow area as well as significa nt pain and swelling in the right hip. PAST MEDICAL HISTORY: He has no known history of bleeding, blood clots, metal allergy or MRSA. His past medical history is significant for diabetes, heart disease including congestive heart failure. He has had an [place] and he also has pulmonary hypertension. He has had diabetic foot ulcers and has seq uela of chronic diabetes including kidney disease and neuropathy. He also has AFib and has a pacemak er. MEDICATIONS: Acyclovir, apixaban, atorvastatin, vitamin B, calcium and vitamin D supplement, iron, f olic acid, insulin, Synthroid, nitroglycerin, pantoprazole. ALLERGIES: HE IS ALLERGIC TO SULFAMETHOXAZOLE AND TRIMETHOPRIM FROM BACTRIM. This caused hypercalce halie as listed. His health history is noted and reviewed on the chart. X-RAYS: A single AP view of the right shoulder shows some degenerative change, but no acute injury. X-rays of the left hip are negative. Right hip shows a comminuted fracture involving the proximal fe mur. This could be a reverse obliquity intertrochanteric fracture or a comminuted subtrochanteric fr acture. There is no dislocation. LABORATORY DATA: White count is 7, hemoglobin 11, hematocrit 33, platelets are 136. INR today is 1. 3. His PRP is noted. BUN 61, creatinine 2.25. Hemoglobin A1c back in December of 6.1. His PRP resul ts are noted. Albumin 3.0. COVID test negative. Urine shows protein, red blood cells and white blo od cells, but negative for bacteria and esterase. PHYSICAL EXAMINATION: He is awake, alert and oriented. He can move his neck without difficulty. He can move the left arm and left leg without much difficulty. There is no tenderness to palpation of the left lower extremity. The right leg shows swelling and tenderness in the right upper half of the thigh, but no tenderness in the lower thigh, knee, leg, ankle, foot. There are missing digits. Miki salis pedis nonpalpable posterior tibial pulses 1+. He can flex and extend the ankle and sun with 5-/5 strength. Sensation grossly intact. Any movement of the right leg causes right hip area pain. Examination of the right arm reveals a 1+ radial pulse. Intact median, radial, and ulnar motor and s ensory functions with intrinsic muscle wasting of the hand. He has full forearm rotation and can fle x and extend against resistance with 5-/5 strength limited by some discomfort. Elbow motion is 0/15/ 120. There is no bruising or swelling noted. There is tenderness in the lower portion of the right humerus. The elbow itself does not appear to be tender or swollen. He can internally rotate the edmond ulder to the abdomen and externally rotate 30 degrees and forward elevate about 90. He can hold the arm in elevation at 90 degrees against resistance with 4/5 strength. The shoulder itself is nontende r. The AC joint, clavicle and proximal humerus. IMPRESSION: 1. Right peritrochanteric hip fracture. 2. Right arm pain. 3. A complex medical history including diabetes, pulmonary hypertension, kidney and heart disease. PLAN: The patient will be admitted to the medicine service. He will need appropriate workup to dete rmine his suitability and any other intervention necessary to ensure a safe surgical procedure. I pu t in a consult for anesthesia. He may need an echocardiogram regarding his pulmonary hypertension. Given his anticoagulation with the apixaban surgery would likely not be possible until Friday. He is added on to the OR schedule. He is educated about the surgery. We talked about risks, benefits, rehab and recovery. An informed consent was obtained. I would recommend surgery if it is medically safe to proceed. At this time, he will be on bed rest with 15 pounds of traction on the right leg. May consider getting a traction x-ray to help identify fracture morphology more clearly. Type and s creen. N.p.o. prior to surgery. Hold the apixaban. Preop antibiotics. DVT prophylaxis with SCDs a nd ANÍBAL hose. He will also need a decubitus precautions. Check vitamin D level. We will need to fur ther evaluate his right arm and I have ordered some additional x-rays. Job ID: [id number]
[2021-03-12] MEDS ORDERED: MAGNESIUM HYDROXIDE SUSP 30 ML UDC PO PRN (21:04)
[2021-03-12] MEDS ORDERED: bisacodyL 10 MG SUPP PR PRN (21:04)
[2021-03-12] MEDS ORDERED: NITROGLYCERIN SL 0.4 MG/TAB TAB SL PRN (21:04)
[2021-03-12] MEDS ORDERED: NALOXONE HCL 0.4 MG/1 ML VIAL/CARP IV PRN (21:04)
[2021-03-12] MEDS ORDERED: ONDANSETRON INJ 2 MG/ML 2 ML VIAL IV PRN (21:04)
[2021-03-12] MEDS ORDERED: oxyCODONE HCL IR 5 MG TAB (IMMEDIATE RELEASE) PO PRN (21:04)
[2021-03-12] MEDS ORDERED: DOCUSATE SODIUM/SENNA 50/8.6MG TAB PO SCH (21:04)
[2021-03-12] MEDS ORDERED: ceFAZolin 2000MG 2,000 MG/15 ML SYR IV ONE (21:04)
[2021-03-12] MEDS ORDERED: ACETAMINOPHEN 325 MG TAB PO PRN (21:04)
[2021-03-12] MEDS ORDERED: ACETAMINOPHEN 500 MG TAB PO PRN (21:04)
[2021-03-12] MEDS ORDERED: GLUCOSE 40% GEL 15 GM TUBE PO PRN (21:30)
[2021-03-12] MEDS ORDERED: CARBOHYDRATES FOR HYPOGLYCEMIA PO PRN (21:30)
[2021-03-12] MEDS ORDERED: GLUCOSE 10 TABS/TUBE PO PRN (21:30)
[2021-03-12] MEDS ORDERED: GLUCAGON FOR INJ 1 MG VIAL IM PRN (21:30)
[2021-03-12] MEDS ORDERED: DEXTROSE 50% 50 ML SYRINGE IV PRN (21:30)
[2021-03-12] MEDS ORDERED: PATIENT'S HEIGHT AND/OR WEIGHT NEEDED SCH (21:30)
[2021-03-12] MEDS ORDERED: HEPARIN SOD 5,000 UNIT/0.5 ML VIAL SQ SCH (22:00)
[2021-03-12] MEDS ORDERED: INSULIN GLARGINE SOLOSTAR 100 UNITS/ML 3 ML PEN SC SCH (22:30)
[2021-03-12] MEDS: LACTATED RINGER'S 1,000 ML IV SCH (22:39)
--- NOTE | 2021-03-12 22:47 | Pharmacy Report ---
Pharmacy Glycemic Short Note 2 - Date of Service March 12, 2021 - Glycemic Short BSG Results (Last 24 hours): 03/12/21 03/12/21 14:56 21:55 Glucose 254 H POC Glucose 179 H OUTPATIENT ANTIDIABETIC REGIMEN: * Per patient report: basal rate: 5335-2992 0.125units/hr; 1356-7664 0.175 units/hr; 7637-4959 0.075 units/hr (~3.35 units/day); he is unable to state his correction factor and states that "it changes" but "sometimes 1 unit will lower BSG only 5 or sometimes 30"; he was not able to provide a description of how he covers carbs or an average dose he uses with a meal. * A1c = 6.1% 01/16/21 ASSESSMENT: * Type 1 diabetic admitted for R prox femur fx following mechanical fall * Patient self-manages his DM with insulin pump however his has taken his pump home * I reviewed insulin regimen w/ patient over the phone today to determine his basal and bolus doses. His description of bolus doses were vague however his recall of basal rates was more clear. * I explained that we would need to give him basal and rapid acting insulin this admission as a replacement for his insulin pump unless the decision is made to resume. He was unwilling to receive basal insulin despite offering a lesser total daily basal dose. I referred his concerns to Hospitalist. Lack of basal insulin in a type 1 diabetic is not recommended. PLAN FOR INPATIENT GLYCEMIC CONTROL: * Hold outpatient oral diabetes medications * Basal insulin * Lantus 3 units SQ Q HS * Bolus insulin * NovoLog per scale ACHS or Q6hrs while NPO * Goal Range: Low 120 mg/dL - High 150 mg/dL * Correction Factor: 50 mg/dL/unit * Nutritional / Prandial insulin per carb ratio of 1 unit per 15 grams CHO consumed PLAN FOR DISCHARGE: * to be determined
[2021-03-12] MEDS: HYDROmorphone INJ 0.5 MG/0.5 ML SYR IV PRN (23:48)
--- NOTE | 2021-03-12 23:56 | Anesthesiology Consultation ---
Date of Service March 12, 2021 Assessment & Plan Chart Review Chart Review: Patient NOT seen in Pre Admission Testing Consults Requested medical & cardiac ASA ASA4 History Height/Weight Height: 5 ft 10 in Weight: 90 kg Allergies Allergy/AdvReac Type Severity Reaction Status Date / Time sulfamethoxazole AdvReac Severe Hyperkalcem Verified 03/12/21 17:02 [From Bactrim] ia trimethoprim [From Bactrim] AdvReac Severe Hyperkalcem Verified 03/12/21 17:02 ia Medications Home Medications Medication Instructions Recorded Confirmed Last Taken vit C 250 mg-vit E 90 mg-zinc 40 1 tab PO BID 01/04/19 03/12/21 12/31/19 08:00 mg-copper 1 [id number] capsule (PreserVision AREDS-2) folic acid 800 mcg tablet 800 mcg PO HS 01/29/19 03/12/21 12/30/19 acyclovir 400 mg tablet 400 mg PO HS 08/06/19 03/12/21 12/30/19 nitroglycerin 0.4 mg sublingual 0.4 mg SL Q5M PRN 11/05/19 03/12/21 Unknown tablet (Nitrostat) ferrous sulfate 325 mg (65 mg 325 mg PO UD 03/13/20 03/12/21 Unknown iron) tablet,delayed release pantoprazole 40 mg tablet,delayed 40 mg PO QAM #90 tab 08/08/20 03/12/21 Unknown release (Protonix) apixaban 2.5 mg tablet (Eliquis) 2.5 mg PO BID 01/18/21 03/12/21 Unknown atorvastatin 40 mg tablet 40 mg PO DAILY 01/18/21 03/12/21 Unknown calcium carb,cit ER 600 mg-vit D3 1 tab PO HS #90 tab 02/02/21 03/12/21 Unknown 12.5 mcg (500 unit) tablet,ext.rel (Citracal-D3 Slow Release) insulin lispro 100 unit/mL 100 unit CONTINUOUS SUBCUTANEOUS 03/07/21 03/12/21 Unknown subcutaneous solution (Humalog INFUSION DAILY #9 vial U-100 Insulin) cholecalciferol (vitamin D3) 25 25 mcg PO DAILY 03/12/21 03/12/21 Unknown mcg (1,000 unit) tablet levothyroxine 112 mcg tablet 112 mcg PO .6XW 03/12/21 03/12/21 Unknown (Synthroid) vitamin B complex and vitamin C 1 cap PO DAILY 03/12/21 03/12/21 Unknown no.20-folic acid 1 mg capsule (Bowie Caps) Active Medications Generic Name Dose Route Start Last Admin Trade Name Freq PRN Reason Stop Dose Admin Hydromorphone HCl 0.5 mg 03/12/21 21:04 03/12/21 23:48 Hydromorphone Inj 0.5 Mg/0.5 Ml Syr IV 03/26/21 21:03 0.5 mg Q3H PRN Administration Pain (6,7,8,9,10) Lactated Ringer's 1,000 mls @ 90 mls/hr 03/12/21 21:04 03/12/21 22:39 Lr IV 04/11/21 21:03 90 mls/hr .[id number] JOSÉ MIGUEL Administration Senna/Docusate Sodium 2 tab 03/12/21 21:04 03/12/21 22:45 Docusate Sodium/Senna 50/8.6mg Tab PO 04/11/21 21:03 2 tab HS JOSÉ MIGUEL Administration Past Medical History Medical History Anemia Aortic stenosis s/p AVR (2012) Ascending aortic aneurysm under surveillance by Dr. Mendoza (stable since 2005) Basal cell carcinoma of left forehead CAD (coronary artery disease) IBRAHIMA (05/2019), + stent 2006, CABGx3 (1993) CHF (congestive heart failure) Chronic kidney disease, stage 4 (severe) follows with Dr. 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, managed with low dose furosemide Type 1 diabetes mellitus insulin pump Exercise / Class Metabolic Activity III < 4 Walking/Shop/Light housework Past Family History Family History Father Coronary heart disease Myocardial infarction Brother Diabetes Mother Diabetes Cancer Denies family history of Colon cancer Ovarian cancer Prostate cancer Breast cancer Past Surgical History Surgical History History of amputation of toe Right big toe partial amputation: 01/19/19: MAC sedation at [facility] History of aortic valve replacement 2012 History of appendectomy History of arthroscopy of left shoulder History of cardiac cath 05/2019 [facility] w/ 1 drug eluting stent 2017 - [place] - NO STENTS/ANGIOPLASTY 2006 - [facility] [place] - 1 STENT PLACED 2011 - [facility] [place] - NO STENTS 1993 --> CABG History of coronary artery bypass graft x 3 1993 History of cystoscopy W/ STONE EXTRACTION 03/20/17: LMA #5 History of esophagogastroduodenoscopy (EGD) History of gastric bypass 20 YEARS AGO - FOR DM History of hand surgery Lt History of inguinal hernia repair Rt 03/02/14: MAC #4, ETT #7.5, Oral, Grade 2 View History of laminectomy CERVICAL SPINE History of radiofrequency ablation procedure for cardiac arrhythmia History of tonsillectomy Hx of heart artery stent Presence of permanent cardiac pacemaker S/P left knee arthroscopy S/P right knee arthroscopy Status post endovenous radiofrequency ablation of saphenous vein Past Anesthesia History No Hx of Anesthesia Complications and No Family Hx of Anesthesia Complications History of PONV No Hx of PONV and No Hx of Motion Sickness Social History Smoking Status: Never smoker Hx Alcohol Use: No Hx Substance Use: No substance use type: does not use Physical Exam Vital Signs Last Vital Signs Temp 36.4 C L 03/12/21 22:29 Pulse 80 03/12/21 21:01 Resp 16 03/12/21 22:29 BP 100/56 L 03/12/21 22:29 Pulse Ox 94 03/12/21 22:29 Testing Laboratory Results 03/12/21 14:56 03/12/21 14:56 PT 13.2 Seconds (9.0-12.0) H 03/12/21 14:56 INR 1.3 (0.9-1.1) H 03/12/21 14:56 APTT 29.3 Seconds (21.0-31.0) 03/12/21 14:56 Urine Color Yellow 03/12/21 16:20 Urine Appearance Clear (Clear) 03/12/21 16:20 Urine pH 5.0 (4.5-7.5) 03/12/21 16:20 Ur Specific [place] 1.016 (1.000-1.030) 03/12/21 16:20 Urine Protein 2+ (Negative) H 03/12/21 16:20 Urine Glucose (UA) Negative (Negative) 03/12/21 16:20 Urine Ketones Negative (Negative) 03/12/21 16:20 Urine Nitrite Negative (Negative) 03/12/21 16:20 Ur Leukocyte Esterase Negative (Negative) 03/12/21 16:20 Urine WBC (Auto) 1-5 /hpf (0-5) 03/12/21 16:20 Urine RBC (Auto) 5-10 /hpf (0-4) H 03/12/21 16:20 U Hyaline Cast (Auto) 1-5 /lpf (0-5) 03/12/21 16:20 U Epithel Cells (Auto) 5-10 /lpf (0-5) H 03/12/21 16:20 Urine Bacteria (Auto) Negative (Negative) 03/12/21 16:20 Blood Type O Positive 03/12/21 14:56 Antibody Screen NEGATIVE 03/12/21 14:56 03/12/21 21:55 POC Glucose 179 H Electrocardiogram Date: 03/12/21 Findings: + pertinent finding (V Paced rhythm @ 80) Chest X-Ray Date: 03/12/21 Findings: + atelectasis (bibasilar), + cardiomegaly, + pulmonary vascular congestion and + pleural effusion (small bilat.) Echocardiogram Date: 11/07/19 EF: 50% LV Function: low normal RWMA: + none Other Findings: + LVH and + diastolic dysfunction (grade 3-restrictive) Valvular Disease: + no significant valvular disease (mild TR,UT), + MR (mild) and + pertinent finding (bioprosthetic AV functions well) Pulmonary HTN
[2021-03-13] MEDS: INSULIN ASPART 100 UNITS/ML 3 ML PEN SC SCH ×5 (00:40→16:16)
[2021-03-13 04:18] LABS: Basophils # (auto) 0.02 K/uL (0-0.2); Basophils % (auto) 0.2 %; Eosinophils # (auto) 0.03 K/uL (0-0.5); Eosinophils % (auto) 0.3 %; Hematocrit (blood only) 29.2 % (42-52); Hemoglobin 9.5 g/dL (14.0-18.0); Immature Granulocytes # (auto) 0.02 K/uL (0.00-0.02); Immature Granulocytes % (auto) 0.2 %; Lymphocytes # (auto) 0.63 K/uL (1.2-3.4); Lymphocytes % (auto) 6.8 %; Mean Corpuscular Hemoglobin 34.3 pg (25-34); Mean Corpuscular Volume 105.4 fL (80-100); Mean Platelet Volume 9.4 fL (7.4-10.4); Monocytes # (auto) 1.06 K/uL (0.11-0.59); Monocytes % (auto) 11.4 %; Neutrophils # (auto) 7.54 K/uL (1.4-6.5); Neutrophils % (auto) 81.1 %; Platelet Count 119 K/uL (130-400); RDW Coefficient of Variation 14.9 % (11.5-14.5); RDW Standard Deviation 57.4 fL (36.4-46.3); Red Blood Count 2.77 M/uL (4.7-6.1)
[2021-03-13 04:43] LABS: BUN Creatinine Ratio 23.2 (10-20); Calcium 8.5 mg/dl (8.5-10.1); Creatinine Clr Calc Pharmacy 25.2 ml/min; Est GFR (African American) 24.4 ml/min; Est GFR (Non-African American) 21.1 ml/min; Magnesium 1.7 mg/dl (1.8-2.4); Potassium 5.4 mmol/L (3.5-5.1)
[2021-03-13 04:49] LABS: Mean Corpuscular Hgb Conc 32.5 g/dL (32-36)
[2021-03-13 05:22] LABS: Thyroid Stimulating Hormone 5.13 uIu/ml (0.300-4.500)
[2021-03-13 05:41] LABS: T4 Free Thyroxine 1.31 ng/dl (0.8-1.6)
[2021-03-13] MEDS ORDERED: LEVOTHYROXINE SODIUM 112 MCG TABLET PO SCH (06:30)
--- NOTE | 2021-03-13 07:36 | Hospitalist Progress Note ---
Date of Service March 13, 2021 Assessment & Plan (1) Hypotension (arterial): Plan: Talon Blake is a 75-year-old male with a significant past medical history for coronary artery disease, history of ischemic cardiomyopathy, status post complete heart block with dual-chamber pacemaker in July 2012 with generator change September 12, 2020, atrial fibrillation, atrial flutter on apixaban status post flutter ablation October 2018, pulmonary hypertension, bioprosthetic aortic valve replacement, chronic right-sided diastolic heart failure, chronic kidney disease stage IV who was admitted to [facility] due to mechanical fall leading to an right intertrochanteric hip fracture. Intertrochanteric Right Hip Fracture -Orthopedic surgery initially recommending surgical intervention However patient got significantly hypotension with pain medication Ultimately, his blood pressure did not respond to IV fluid boluses --at this point patient and family were requesting everything possible be done and as such, patient was transferred to ICU At this point, patient and family expressed that they did not want a move forward with any procedures and elected to move to a comfort only approach after conversation with ICU attending Palliative care consulted comfort orders placed Per ICU providers discussion with anesthesiology, peripheral nerve block was placed to help with the hip pain and decrease his need for opiates Chronic Medical Issues Acute kidney failure - At this point long-term chronic meds discontinues and continuing short-term acute meds for comfort per ICU and Palliative consults Dispo: Katherine CODE: DNR/DNI Diet: CC/DM2 (2) CAD (coronary artery disease): (3) Pulmonary HTN: (4) Presence of permanent cardiac pacemaker: (5) Intertrochanteric fracture of femur: (6) CHF (congestive heart failure): (7) Type 1 diabetes mellitus with nephropathy: (8) GERD (gastroesophageal reflux disease): (9) Hypothyroid: (10) Acute hyperkalemia: Admission and Anticipated Discharge Date Admission Date: March 12, 2021 Supervising Physician Co-Signing Physician Notes Resident Physician Supervision Note: I independently interviewed and examined the patient and verified the gramajo history and physical, reviewed labs and image studies and agree with resident Dr. Soni findings and care plan. Subjective LastPatient seen at bedside this morning. His and son were also in the room. His situation and upon my discussion patient and family had both denied wanting to move to comfort focused approach and wanted to attempt everything. As such, patient was transferred to ICU at which point he and family did decide to move to comfort measures. See Palliative and ICU notes for further details. Review of Systems Review of Systems: per subjective Physical Exam Physical Exam: GENERAL: A&Ox3 CHEST/LUNGS: CTAB A/P. No crackles, wheezes, rales, rhonchi. HEART: RRR. No m/g/r. No carotid bruits. ABDOMEN: NT/ND, soft. BS+ x4 EXTREMITIES: RLE in traction SKIN: Warm and dry. No rashes or lesions. PSYCHIATRIC: Euthymic affect, no SI, no pressured speech, no hallucinations NEUROLOGIC: No FND. CN II-XII grossly intact. Results & Data Results & Data ([facility]) Vital Signs (Past 12 Hours) Vital Signs Temp Pulse Resp BP BP Pulse Ox Pulse Ox 03/12/21 22:29 36.4 C L 16 100/56 L 94 03/12/21 21:24 94 03/12/21 21:01 80 115/63 94 03/12/21 20:35 80 115/63 94 Resident Activity Tracking Resident Involvement: Resident Care Provided Care Provided: Adult Hospital Medicine
[2021-03-13] MEDS: HYDROmorphone INJ 0.5 MG/0.5 ML SYR IV PRN (07:51)
[2021-03-13] MEDS ORDERED: Influenza Vaccine-High Dose (Fluzone-HD) PF 65+ 0.7 ML SYR IM ONE (08:00)
[2021-03-13] MEDS ORDERED: SODIUM CHLORIDE 0.9% 500 ML IV ONE (08:45)
--- NOTE | 2021-03-13 08:45 | Cardiology Consultation ---
Date of Consultation March 13, 2021 Assessment & Plan (1) Intertrochanteric fracture of femur: IMPRESSION: 1. Coronary artery disease, status post port coronary bypass grafting x4 in 1993 and repeat coronary bypass grafting at the [facility] 07/2012 with placement of a bioprosthetic aortic valve replacement. 2. Complete heart block postoperatively status post dual-chamber pacemaker 07/2012, with generator change 09/12/20. 3. History of atrial fibrillation in 2013. 4. Atrial flutter, diagnosed in May 2017, on anticoagulation with apixaban, status post flutter ablation, October,. 5. Coronary artery disease status post cardiac catheterization 01/2019 with diffuse LAD disease with a 60-70% proximal stenosis and a total occlusion of the mid LAD after the first septal sweatband perforator; circumflex 50% ostial disease and a small vessel. The OM2 is occluded; the RCA was a large, dominant vessel with 99% in-stent restenosis in the proximal aspect of the distal RCA stents, 70% ostial right posterolateral branch; patent MOROCHO to the LAD with diffuse disease after the touchdown; widely patent SVG to the diagonal; SVG to the OM with a 50-60% proximal stenosis and then 70% stenosis at the anastomosis of a small marginal branch; SVG to the right PDA 60-70% stenosis in the PDA proximal to the anastomosis. 6. History of preserved left ventricular systolic function by echocardiogram 06/04/2019; with normal LV function, severe RV dysfunction, with a PA pressure of 55 mmHg and a mean PA pressure of 36 mmHg; normally functioning aortic valve replacement; moderate mitral regurgitation. 7. Chronic right-sided and diastolic heart failure. 8. Chronic kidney disease stage IV Mr. Blake is high risk for proceeding with his hip fracture surgery. He has severe pulmonary hypertension which was being treated with a palliative approach as an outpatient. His risk for perioperative cardiac event, needing prolonged ventilator support and/or dialysis is high - probably in the 10-20% range. Alternatively, if he does not have hip surgery his mortality and morbidity risk are high as well in addition to difficult to manage pain from the fracture. His blood pressure decreased to 70/43 this morning with a dose of dilaudid. I discussed his case this morning with the hospitalists. They are planning to consult palliative care which will be helpful in guiding Mr. Blake and his family as they make a decision about whether or not proceed with surgery. He was started on a 500 ml bolus by the hospitalists for his hypotension. Obviously, his fluid balance is going to be tricky. If he does proceed with surgery, anesthesia should avoid dropping his preload. His legs look less edematous than previous descriptions in his chart. He did have small bilateral pulmonary effusions and pulmonary edema on his chest Xray. His apixaban is on hold since evening of 03/12. He is pacing on the monitor. He is not on anything for rate control or blood pressure. History of Present Illness Attending Physician: Ida Segovia MD History of Present Illness Mr. Blake presented to the ED after a [place]. He was found to have a closed displaced intertrochanteric fracture of the proximal right femur. He last took his apixaban 03/12 and is tentatively on the OR schedule for 03/14. Mr. Blake is in pain this morning. He was given dilaudid and his blood pressure dropped to 73/45. He is unable to tell me where he is or interact with me meaningfully although he does tell the nurse that his shoulder is hurting. He is pacing on the monitor Allergies Allergy/AdvReac Type Severity Reaction Status Date / Time sulfamethoxazole AdvReac Severe Hyperkalcem Verified 03/12/21 17:02 [From Bactrim] ia trimethoprim [From Bactrim] AdvReac Severe Hyperkalcem Verified 03/12/21 17:02 ia Home Medications Medication Instructions Recorded Confirmed Type vit C 250 mg-vit E 90 mg-zinc 40 1 tab PO BID 01/04/19 03/12/21 History mg-copper 1 un-tnujsd-hladrh capsule (PreserVision AREDS-2) folic acid 800 mcg tablet 800 mcg PO HS 01/29/19 03/12/21 History acyclovir 400 mg tablet 400 mg PO HS 08/06/19 03/12/21 History nitroglycerin 0.4 mg sublingual 0.4 mg SL Q5M PRN 11/05/19 03/12/21 History tablet (Nitrostat) ferrous sulfate 325 mg (65 mg 325 mg PO UD 03/13/20 03/12/21 History iron) tablet,delayed release pantoprazole 40 mg tablet,delayed 40 mg PO QAM #90 tab 08/08/20 03/12/21 Rx release (Protonix) apixaban 2.5 mg tablet (Eliquis) 2.5 mg PO BID 01/18/21 03/12/21 History atorvastatin 40 mg tablet 40 mg PO DAILY 01/18/21 03/12/21 History calcium carb,cit ER 600 mg-vit D3 1 tab PO HS #90 tab 02/02/21 03/12/21 Rx 12.5 mcg (500 unit) tablet,ext.rel (Citracal-D3 Slow Release) insulin lispro 100 unit/mL 100 unit CONTINUOUS SUBCUTANEOUS 03/07/21 03/12/21 Rx subcutaneous solution (Humalog INFUSION DAILY #9 vial U-100 Insulin) cholecalciferol (vitamin D3) 25 25 mcg PO DAILY 03/12/21 03/12/21 History mcg (1,000 unit) tablet levothyroxine 112 mcg tablet 112 mcg PO .6XW 03/12/21 03/12/21 History (Synthroid) vitamin B complex and vitamin C 1 cap PO DAILY 03/12/21 03/12/21 History no.20-folic acid 1 mg capsule ([place] Caps) Patient History Medical History Anemia Aortic stenosis s/p AVR (2012) Ascending aortic aneurysm under surveillance by Dr. Mendoza (stable since 2005) Basal cell carcinoma of left forehead CAD (coronary artery disease) IBRAHIMA (05/2019), + stent 2006, CABGx3 (1993) CHF (congestive heart failure) Chronic kidney disease, stage 4 (severe) follows with Dr. 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 w/ 1 drug eluting stent 2017 [place]IOP[place] [facility] [place] [facility] [place] CABG History of coronary artery bypass graft x 3 1993 History of cystoscopy W/ STONE EXTRACTION 03/20/17: LMA #5 History of esophagogastroduodenoscopy (EGD) History of gastric bypass 20 YEARS AGO - FOR DM History of hand surgery Lt History of inguinal hernia repair Rt 03/02/14: MAC #4, ETT #7.5, Oral, Grade 2 View History of laminectomy CERVICAL SPINE History of radiofrequency ablation procedure for cardiac arrhythmia History of tonsillectomy Hx of heart artery stent Presence of permanent cardiac pacemaker S/P left knee arthroscopy S/P right knee arthroscopy Status post endovenous radiofrequency ablation of saphenous vein Family History Father Coronary heart disease Myocardial infarction Brother Diabetes Mother Diabetes Cancer Denies family history of Colon cancer Ovarian cancer Prostate cancer Breast cancer Social History Smoking Status: Never smoker Second Hand Exposure: No; Hx Alcohol Use: No Hx Substance Use: No Preferred Language: Emir[place] Communication Ability: Effective Visual Impairment: No Limitations 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: Normal Pump Stitcher Required: No Beliefs That Will Affect Care: None marital status: Current Living Situation: Spouse current occupational status: retired current occupation: Retired Other Information That Helps Us Care for You: No Feels Safe at Home: Yes Safety Concerns: Feels Safe At This Time Assistive Devices: Walker Review of Systems Review of Systems: Unable to complete ROS due to mentation Physical Exam Constitutional: + acute distress and + altered mental status Cardiovascular: Rate/Rhythm: regular rate and regular rhythm Heart Sounds: + murmur (systolic llsb 2/6) Extremities: + edema (bilateral lower extremities ) Skin: no rashes, warm and dry Neurologic: moves all extremities and awake Psychiatric: Orientation: alert; + not oriented x 3 Results & Data ([facility]) Vital Signs (Past 12 Hours) Vital Signs Temp Pulse Resp BP BP Pulse Ox Pulse Ox 03/13/21 08:17 36.6 C 12 73/45 L 100 03/12/21 22:29 36.4 C L 16 100/56 L 94 03/12/21 21:24 94 03/12/21 21:01 80 115/63 94
[2021-03-13] MEDS ORDERED: PANTOprazole 40 MG TAB PO SCH (09:00)
[2021-03-13] MEDS ORDERED: ATORVASTATIN 40 MG TAB PO SCH (09:00)
[2021-03-13] MEDS ORDERED: FERROUS SULFATE 325 MG TAB PO SCH (09:00)
[2021-03-13] MEDS: LACTATED RINGER'S 1,000 ML IV SCH (09:05)
--- NOTE | 2021-03-13 09:12 | XRay Report ---
XR hip RT 1V CLINICAL HISTORY: Right hip fracture with pain. COMPARISON STUDY: Right hip 03/12/2021. FINDINGS: No significant change in the comminuted and displaced intertrochanteric fracture the proxim al right femur. No dislocation. Visualized pelvic bones are intact. Mild soft tissue swelling within the right hip. IMPRESSION: No significant change in the comminuted and displaced intertrochanteric fracture of the proximal right femur. ACT 112: Negative or not required by law. Electronically signed by: Jamal Dial M.D. 03/13/2021 9:10 AM
[2021-03-13] MEDS ORDERED: SODIUM CHLORIDE 0.9% 1000ML 500 ML IV ONE (09:41)
[2021-03-13 10:07] LABS: Hematocrit (blood only) 27.5 % (42-52); Hemoglobin 8.9 g/dL (14.0-18.0)
[2021-03-13] MEDS ORDERED: STAT IV Infusion **Titration per Protocol STA (11:52)
--- NOTE | 2021-03-13 12:10 | Billing Data ---
Date of Service March 13, 2021 Coding Level of Care Code Critical Care 1st 30-74 mins Time Spent (min) 45
--- NOTE | 2021-03-13 12:10 | Critical Care Consultation ---
Date of Consultation March 13, 2021 Assessment & Plan (1) Presence of permanent cardiac pacemaker: (2) CAD (coronary artery disease): (3) Pulmonary HTN: (4) Pacemaker: (5) Intertrochanteric fracture of femur: (6) Fracture of hip, right, closed: (7) Hypothyroidism: (8) CHF (congestive heart failure): (9) Anemia of chronic disease: (10) Secondary hyperparathyroidism: (11) Coronary artery disease: (12) Heart failure with preserved ejection fraction: (13) History of complete heart block: (14) Atrial fibrillation: (15) S/P ablation of atrial flutter: (16) Chronic kidney disease, stage 4 (severe): (17) Counseling regarding goals of care: (18) Hypotension (arterial): I have discontinued long-term chronic meds and will continue short-term acute meds for comfort. Supervising Physician Co-Signing Physician Notes Dr. Regan was resident physician during care of patient. I separately evaluated patient for gramajo portions of the history and the exam. I was present during the critical portion of medical decision making, and I discussed the case with the resident. I generally agree with the findings and plan. Patient relatively hypotensive after administration of opiate pain medication for right intertrochanteric hip fracture. Patient given 2 boluses judiciously for extensive history of cardiac disease and pulmonary hypertension with a history of right-sided heart failure. During my examination the patient understands the severity of his disease that he has a hip fracture understands that he would need this repaired and he could without it being repaired. He just wants to be kept comfortable at this point. I discussed the case with his and son and he has expressed numerous times that he does not want to be disabled would not want to be left on a ventilator and they believe he would not want to undergo surgery at this time. At this point we are making him DNR/DNI in event of cardiac arrest or respiratory insufficiency and transitioning to comfort. I discussed the case with anesthesiology and he may benefit from a peripheral nerve block which may decrease his need for opiates and hopefully break some of the pain cycle. We will consult palliative care and hopefully best place the patient and allow him to eat or drink for comfort. At this time all are in agreement that the risks of surgery are too high with significantly high risk of disability given his underlying debilitation and opt optimize the time remaining. Accordingly we will not manage his blood pressure at this time we will continue to monitor the patient and see if there is improvement in his overall condition or should his opinion change but at this point we are engaging in comfort care. History of Present Illness Reason for Consultation: Hypotension Attending Physician: Ida Segovia MD History of Present Illness Patient is a 75-year-old male with a significant past medical history for coronary artery disease, history of ischemic cardiomyopathy, status post complete heart block with dual-chamber pacemaker in July 2012 with generator change September 12, 2020, atrial fibrillation, atrial flutter on apixaban status post flutter ablation October 2018, pulmonary hypertension, bioprosthetic aortic valve replacement, chronic right-sided diastolic heart failure, chronic kidney disease stage IV who has been treated with a palliative approach for his pulmonary hypertension. [place] was discovered to have a right displaced comminuted intratrochanteric hip fracture on March 12, 2021 he had also taken his apixaban that morning. He had been placed in traction and had been receiving opiate pain medication and was noted to be hypotensive after multiple doses of IV pain medication this morning. He was given a judicious fluid bolus and had no significant improvement in his hypo tension. During my evaluation patient's blood pressure was noted however he is aware of his hip fracture he is aware of the need for surgery he is aware that he may have an adverse outcome if he undergoes the surgical procedure and if he does not undergo the surgical procedure and at this time he is refusing all interventions and wants to remain comfortable. Given the patient's responses it appears he has capacity to make his own decisions at this time. His family states that the believes have been longstanding. Allergies Allergy/AdvReac Type Severity Reaction Status Date / Time sulfamethoxazole AdvReac Severe Hyperkalcem Verified 03/12/21 17:02 [From Bactrim] ia trimethoprim [From Bactrim] AdvReac Severe Hyperkalcem Verified 03/12/21 17:02 ia Home Medications Medication Instructions Recorded Confirmed Type vit C 250 mg-vit E 90 mg-zinc 40 1 tab PO BID 01/04/19 03/12/21 History mg-copper 1 [id number] capsule (PreserVision AREDS-2) folic acid 800 mcg tablet 800 mcg PO HS 01/29/19 03/12/21 History acyclovir 400 mg tablet 400 mg PO HS 08/06/19 03/12/21 History nitroglycerin 0.4 mg sublingual 0.4 mg SL Q5M PRN 11/05/19 03/12/21 History tablet (Nitrostat) ferrous sulfate 325 mg (65 mg 325 mg PO UD 03/13/20 03/12/21 History iron) tablet,delayed release pantoprazole 40 mg tablet,delayed 40 mg PO QAM #90 tab 08/08/20 03/12/21 Rx release (Protonix) apixaban 2.5 mg tablet (Eliquis) 2.5 mg PO BID 01/18/21 03/12/21 History atorvastatin 40 mg tablet 40 mg PO DAILY 01/18/21 03/12/21 History calcium carb,cit ER 600 mg-vit D3 1 tab PO HS #90 tab 02/02/21 03/12/21 Rx 12.5 mcg (500 unit) tablet,ext.rel (Citracal-D3 Slow Release) insulin lispro 100 unit/mL 100 unit CONTINUOUS SUBCUTANEOUS 03/07/21 03/12/21 Rx subcutaneous solution (Humalog INFUSION DAILY #9 vial U-100 Insulin) cholecalciferol (vitamin D3) 25 25 mcg PO DAILY 03/12/21 03/12/21 History mcg (1,000 unit) tablet levothyroxine 112 mcg tablet 112 mcg PO .6XW 03/12/21 03/12/21 History (Synthroid) vitamin B complex and vitamin C 1 cap PO DAILY 03/12/21 03/12/21 History no.20-folic acid 1 mg capsule ([place]osh[place] Caps) Patient History Medical History Anemia Aortic stenosis s/p AVR (2012) Ascending aortic aneurysm under surveillance by Dr. Mendoza (stable since 2005) Basal cell carcinoma of left forehead CAD (coronary artery disease) IBRAHIMA (05/2019), + stent 2006, CABGx3 (1993) CHF (congestive heart failure) Chronic kidney disease, stage 4 (severe) 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 w/ 1 drug eluting stent 2016 [place] [facility] [place] [facility] [place] CABG History of coronary artery bypass graft x 3 1993 History of cystoscopy W/ STONE EXTRACTION 03/20/17: LMA #5 History of esophagogastroduodenoscopy (EGD) History of gastric bypass 20 YEARS AGO - FOR DM History of hand surgery Lt History of inguinal hernia repair Rt 03/02/14: MAC #4, ETT #7.5, Oral, Grade 2 View History of laminectomy CERVICAL SPINE History of radiofrequency ablation procedure for cardiac arrhythmia History of tonsillectomy Hx of heart artery stent Presence of permanent cardiac pacemaker S/P left knee arthroscopy S/P right knee arthroscopy Status post endovenous radiofrequency ablation of saphenous vein Family History Father Coronary heart disease Myocardial infarction Brother Diabetes Mother Diabetes Cancer Denies family history of Colon cancer Ovarian cancer Prostate cancer Breast cancer Social History Smoking Status: Never smoker Second Hand Exposure: No; Hx Alcohol Use: No Hx Substance Use: No Preferred Language: Frisian Communication Ability: Effective Visual Impairment: No Limitations 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: Normal Transition Mgr Rn Required: No Beliefs That Will Affect Care: None marital status: Current Living Situation: Spouse current occupational status: retired current occupation: Retired Other Information That Helps Us Care for You: No Feels Safe at Home: Yes Safety Concerns: Feels Safe At This Time Assistive Devices: Walker Review of Systems Review of Systems: Patient by enlarge by refusing to answer questions Physical Exam Physical Exam: General: Alert. Oriented x3 Skin: Warm, dry, Head: Atraumatic Ears, nose, mouth and throat: airway patent Cardiovascular: Normal peripheral perfusion Respiratory: no respiratory distress, speaks in full sentences Gastrointestinal: Non distended Musculoskeletal: Right lower extremity in traction Results & Data Results & Data ([facility]) Vital Signs (Past 12 Hours) Vital Signs Temp Pulse Pulse Resp BP Pulse Ox 03/13/21 11:08 36 C L 80 14 78/50 L 94 03/13/21 10:53 82/50 L 03/13/21 09:38 36.5 C 16 70/40 L 03/13/21 09:27 34.1 C L 80 17 70/48 L 94 03/13/21 08:17 36.6 C 12 73/45 L 100 03/13/21 08:00 81 Laboratory Results 03/13/21 03/13/21 03/13/21 Range/Units 09:58 07:44 04:02 WBC (4.8-10.8) K/uL RBC (4.7-6.1) M/uL Hgb 8.9 L (14.0-18.0) g/dL Hct 27.5 L (42-52) % MCV (80-100) fL MCH (25-34) pg MCHC (32-36) g/dL RDW Std Deviation (36.4-46.3) fL RDW Coeff of Seferino (11.5-14.5) % Plt Count (130-400) K/uL MPV (7.4-10.4) fL Immature Gran % (Auto) % Neut % (Auto) % Lymph % (Auto) % [place] % (Auto) % Eos % (Auto) % Baso % (Auto) % Neut # (Auto) (1.4-6.5) K/uL Lymph # (Auto) (1.2-3.4) K/uL [place] # (Auto) (0.11-0.59) K/uL Eos # (Auto) (0-0.5) K/uL Baso # (Auto) (0-0.2) K/uL Immature Gran # (Auto) (0.00-0.02) K/uL PT (9.0-12.0) Seconds INR (0.9-1.1) APTT (21.0-31.0) Seconds PTT Ratio Sodium (136-145) mmol/L Potassium (3.5-5.1) mmol/L Chloride (98-107) mmol/L Carbon Dioxide (21-32) mmol/L Anion Gap (3-11) BUN (7-18) mg/dl Creatinine (0.6-1.4) mg/dl Est Cr Clr Drug Dosing Est GFR ( Amer) ml/min Est GFR (Non-Af Amer) ml/min BUN/Creatinine Ratio (10-20) Glucose (70-99) mg/dl POC Glucose 153 H (70-99) mg/dl Calcium (8.5-10.1) mg/dl Magnesium (1.8-2.4) mg/dl Total Bilirubin (0.2-1) mg/dl AST (15-37) U/L ALT (12-78) U/L Alkaline Phosphatase (45-117) U/L Troponin I 0.078 H* (0-0.045) ng/ml Total Protein (6.4-8.2) gm/dl Albumin (3.4-5.0) gm/dl Globulin (2.5-4.0) gm/dl Albumin/Globulin Ratio (0.9-2) 25-OH Vitamin D Total (30-100) ng/ml TSH (0.300-4.500) uIu/ml Free T4 (0.8-1.6) ng/dl Urine Color Urine Appearance (Clear) Urine pH (4.5-7.5) Ur Specific Hill[place] (1.000-1.030) Urine Protein (Negative) Urine Glucose (UA) (Negative) Urine Ketones (Negative) Urine Blood (Negative) Urine Nitrite (Negative) Urine Bilirubin (Negative) Urine Urobilinogen (Negative) Ur Leukocyte Esterase (Negative) Urine WBC (Auto) (0-5) /hpf Urine RBC (Auto) (0-4) /hpf U Hyaline Cast (Auto) (0-5) /lpf U Epithel Cells (Auto) (0-5) /lpf Urine Bacteria (Auto) (Negative) COVID-19 Eval Order SARS-CoV-2 (PCR) (Negative) Blood Type Antibody Screen 03/13/21 03/13/21 03/13/21 Range/Units 04:02 04:02 03:27 WBC 9.30 (4.8-10.8) K/uL RBC 2.77 L (4.7-6.1) M/uL Hgb 9.5 L (14.0-18.0) g/dL Hct 29.2 L (42-52) % MCV 105.4 H (80-100) fL MCH 34.3 H (25-34) pg MCHC 32.5 (32-36) g/dL RDW Std Deviation 57.4 H (36.4-46.3) fL RDW Coeff of Seferino 14.9 H (11.5-14.5) % Plt Count 119 L (130-400) K/uL MPV 9.4 (7.4-10.4) fL Immature Gran % (Auto) 0.2 % Neut % (Auto) 81.1 % Lymph % (Auto) 6.8 % [place] % (Auto) 11.4 % Eos % (Auto) 0.3 % Baso % (Auto) 0.2 % Neut # (Auto) 7.54 H (1.4-6.5) K/uL Lymph # (Auto) 0.63 L (1.2-3.4) K/uL [place] # (Auto) 1.06 H (0.11-0.59) K/uL Eos # (Auto) 0.03 (0-0.5) K/uL Baso # (Auto) 0.02 (0-0.2) K/uL Immature Gran # (Auto) 0.02 (0.00-0.02) K/uL PT (9.0-12.0) Seconds INR (0.9-1.1) APTT (21.0-31.0) Seconds PTT Ratio Sodium 141 (136-145) mmol/L Potassium 5.4 H D (3.5-5.1) mmol/L Chloride 116 H (98-107) mmol/L Carbon Dioxide 18 L (21-32) mmol/L Anion Gap 7.0 (3-11) BUN 64 H (7-18) mg/dl Creatinine 2.77 H D (0.6-1.4) mg/dl Est Cr Clr Drug Dosing 25.2 Est GFR ( Amer) 24.4 ml/min Est GFR (Non-Af Amer) 21.1 ml/min BUN/Creatinine Ratio 23.2 H (10-20) Glucose 186 H (70-99) mg/dl POC Glucose 157 H (70-99) mg/dl Calcium 8.5 (8.5-10.1) mg/dl Magnesium 1.7 L (1.8-2.4) mg/dl Total Bilirubin (0.2-1) mg/dl AST (15-37) U/L ALT (12-78) U/L Alkaline Phosphatase (45-117) U/L Troponin I (0-0.045) ng/ml Total Protein (6.4-8.2) gm/dl Albumin (3.4-5.0) gm/dl Globulin (2.5-4.0) gm/dl Albumin/Globulin Ratio (0.9-2) 25-OH Vitamin D Total (30-100) ng/ml TSH 5.130 H (0.300-4.500) uIu/ml Free T4 1.31 (0.8-1.6) ng/dl Urine Color Urine Appearance (Clear) Urine pH (4.5-7.5) Ur Specific Hillman (1.000-1.030) Urine Protein (Negative) Urine Glucose (UA) (Negative) Urine Ketones (Negative) Urine Blood (Negative) Urine Nitrite (Negative) Urine Bilirubin (Negative) Urine Urobilinogen (Negative) Ur Leukocyte Esterase (Negative) Urine WBC (Auto) (0-5) /hpf Urine RBC (Auto) (0-4) /hpf U Hyaline Cast (Auto) (0-5) /lpf U Epithel Cells (Auto) (0-5) /lpf Urine Bacteria (Auto) (Negative) COVID-19 Eval Order SARS-CoV-2 (PCR) (Negative) Blood Type Antibody Screen 03/12/21 03/12/21 03/12/21 Range/Units 21:55 16:20 16:05 WBC (4.8-10.8) K/uL RBC (4.7-6.1) M/uL Hgb (14.0-18.0) g/dL Hct (42-52) % MCV (80-100) fL MCH (25-34) pg MCHC (32-36) g/dL RDW Std Deviation (36.4-46.3) fL RDW Coeff of Seferino (11.5-14.5) % Plt Count (130-400) K/uL MPV (7.4-10.4) fL Immature Gran % (Auto) % Neut % (Auto) % Lymph % (Auto) % [place] % (Auto) % Eos % (Auto) % Baso % (Auto) % Neut # (Auto) (1.4-6.5) K/uL Lymph # (Auto) (1.2-3.4) K/uL [place] # (Auto) (0.11-0.59) K/uL Eos # (Auto) (0-0.5) K/uL Baso # (Auto) (0-0.2) K/uL Immature Gran # (Auto) (0.00-0.02) K/uL PT (9.0-12.0) Seconds INR (0.9-1.1) APTT (21.0-31.0) Seconds PTT Ratio Sodium (136-145) mmol/L Potassium (3.5-5.1) mmol/L Chloride (98-107) mmol/L Carbon Dioxide (21-32) mmol/L Anion Gap (3-11) BUN (7-18) mg/dl Creatinine (0.6-1.4) mg/dl Est Cr Clr Drug Dosing Est GFR ( Amer) ml/min Est GFR (Non-Af Amer) ml/min BUN/Creatinine Ratio (10-20) Glucose (70-99) mg/dl POC Glucose 179 H (70-99) mg/dl Calcium (8.5-10.1) mg/dl Magnesium (1.8-2.4) mg/dl Total Bilirubin (0.2-1) mg/dl AST (15-37) U/L ALT (12-78) U/L Alkaline Phosphatase (45-117) U/L Troponin I (0-0.045) ng/ml Total Protein (6.4-8.2) gm/dl Albumin (3.4-5.0) gm/dl Globulin (2.5-4.0) gm/dl Albumin/Globulin Ratio (0.9-2) 25-OH Vitamin D Total (30-100) ng/ml TSH (0.300-4.500) uIu/ml Free T4 (0.8-1.6) ng/dl Urine Color Yellow Urine Appearance Clear (Clear) Urine pH 5.0 (4.5-7.5) Ur Specific Hillman 1.016 (1.000-1.030) Urine Protein 2+ H (Negative) Urine Glucose (UA) Negative (Negative) Urine Ketones Negative (Negative) Urine Blood Negative (Negative) Urine Nitrite Negative (Negative) Urine Bilirubin Negative (Negative) Urine Urobilinogen Negative (Negative) Ur Leukocyte Esterase Negative (Negative) Urine WBC (Auto) 1-5 (0-5) /hpf Urine RBC (Auto) 5-10 H (0-4) /hpf U Hyaline Cast (Auto) 1-5 (0-5) /lpf U Epithel Cells (Auto) 5-10 H (0-5) /lpf Urine Bacteria (Auto) Negative (Negative) COVID-19 Eval Order SARS-CoV-2 (PCR) NEGATIVE (Negative) Blood Type Antibody Screen 03/12/21 03/12/21 03/12/21 Range/Units 16:05 14:58 14:56 WBC (4.8-10.8) K/uL RBC (4.7-6.1) M/uL Hgb (14.0-18.0) g/dL Hct (42-52) % MCV (80-100) fL MCH (25-34) pg MCHC (32-36) g/dL RDW Std Deviation (36.4-46.3) fL RDW Coeff of Seferino (11.5-14.5) % Plt Count (130-400) K/uL MPV (7.4-10.4) fL Immature Gran % (Auto) % Neut % (Auto) % Lymph % (Auto) % [place] % (Auto) % Eos % (Auto) % Baso % (Auto) % Neut # (Auto) (1.4-6.5) K/uL Lymph # (Auto) (1.2-3.4) K/uL [place] # (Auto) (0.11-0.59) K/uL Eos # (Auto) (0-0.5) K/uL Baso # (Auto) (0-0.2) K/uL Immature Gran # (Auto) (0.00-0.02) K/uL PT (9.0-12.0) Seconds INR (0.9-1.1) APTT (21.0-31.0) Seconds PTT Ratio Sodium 142 (136-145) mmol/L Potassium 4.6 (3.5-5.1) mmol/L Chloride 114 H (98-107) mmol/L Carbon Dioxide 18 L (21-32) mmol/L Anion Gap 10.0 (3-11) BUN 61 H (7-18) mg/dl Creatinine 2.25 H (0.6-1.4) mg/dl Est Cr Clr Drug Dosing Not Reportable Est GFR ( Amer) 31.4 ml/min Est GFR (Non-Af Amer) 27.1 ml/min BUN/Creatinine Ratio 26.9 H (10-20) Glucose 254 H (70-99) mg/dl POC Glucose (70-99) mg/dl Calcium 9.0 (8.5-10.1) mg/dl Magnesium (1.8-2.4) mg/dl Total Bilirubin 1.3 H (0.2-1) mg/dl AST 43 H (15-37) U/L ALT 50 (12-78) U/L Alkaline Phosphatase 352 H (45-117) U/L Troponin I (0-0.045) ng/ml Total Protein 6.9 (6.4-8.2) gm/dl Albumin 3.0 L (3.4-5.0) gm/dl Globulin 3.9 (2.5-4.0) gm/dl Albumin/Globulin Ratio 0.8 L (0.9-2) 25-OH Vitamin D Total 52.2 (30-100) ng/ml TSH (0.300-4.500) uIu/ml Free T4 (0.8-1.6) ng/dl Urine Color Urine Appearance (Clear) Urine pH (4.5-7.5) Ur Specific Hill[place] (1.000-1.030) Urine Protein (Negative) Urine Glucose (UA) (Negative) Urine Ketones (Negative) Urine Blood (Negative) Urine Nitrite (Negative) Urine Bilirubin (Negative) Urine Urobilinogen (Negative) Ur Leukocyte Esterase (Negative) Urine WBC (Auto) (0-5) /hpf Urine RBC (Auto) (0-4) /hpf U Hyaline Cast (Auto) (0-5) /lpf U Epithel Cells (Auto) (0-5) /lpf Urine Bacteria (Auto) (Negative) COVID-19 Eval Order Covid19 at [facility] SARS-CoV-2 (PCR) (Negative) Blood Type Antibody Screen 03/12/21 03/12/21 03/12/21 Range/Units 14:56 14:56 14:56 WBC 7.11 (4.8-10.8) K/uL RBC 3.14 L (4.7-6.1) M/uL Hgb 10.9 L (14.0-18.0) g/dL Hct 33.2 L (42-52) % MCV 105.7 H (80-100) fL MCH 34.7 H (25-34) pg MCHC 32.8 (32-36) g/dL RDW Std Deviation 56.9 H (36.4-46.3) fL RDW Coeff of Seferino 14.8 H (11.5-14.5) % Plt Count 136 (130-400) K/uL MPV 9.7 (7.4-10.4) fL Immature Gran % (Auto) 0.3 % Neut % (Auto) 75.7 % Lymph % (Auto) 12.9 % [place] % (Auto) 9.0 % Eos % (Auto) 1.8 % Baso % (Auto) 0.3 % Neut # (Auto) 5.38 (1.4-6.5) K/uL Lymph # (Auto) 0.92 L (1.2-3.4) K/uL [place] # (Auto) 0.64 H (0.11-0.59) K/uL Eos # (Auto) 0.13 (0-0.5) K/uL Baso # (Auto) 0.02 (0-0.2) K/uL Immature Gran # (Auto) 0.02 (0.00-0.02) K/uL PT 13.2 H (9.0-12.0) Seconds INR 1.3 H (0.9-1.1) APTT 29.3 (21.0-31.0) Seconds PTT Ratio 1.1 Sodium (136-145) mmol/L Potassium (3.5-5.1) mmol/L Chloride (98-107) mmol/L Carbon Dioxide (21-32) mmol/L Anion Gap (3-11) BUN (7-18) mg/dl Creatinine (0.6-1.4) mg/dl Est Cr Clr Drug Dosing Est GFR ( Amer) ml/min Est GFR (Non-Af Amer) ml/min BUN/Creatinine Ratio (10-20) Glucose (70-99) mg/dl POC Glucose (70-99) mg/dl Calcium (8.5-10.1) mg/dl Magnesium (1.8-2.4) mg/dl Total Bilirubin (0.2-1) mg/dl AST (15-37) U/L ALT (12-78) U/L Alkaline Phosphatase (45-117) U/L Troponin I (0-0.045) ng/ml Total Protein (6.4-8.2) gm/dl Albumin (3.4-5.0) gm/dl Globulin (2.5-4.0) gm/dl Albumin/Globulin Ratio (0.9-2) 25-OH Vitamin D Total (30-100) ng/ml TSH (0.300-4.500) uIu/ml Free T4 (0.8-1.6) ng/dl Urine Color Urine Appearance (Clear) Urine pH (4.5-7.5) Ur Specific [place] (1.000-1.030) Urine Protein (Negative) Urine Glucose (UA) (Negative) Urine Ketones (Negative) Urine Blood (Negative) Urine Nitrite (Negative) Urine Bilirubin (Negative) Urine Urobilinogen (Negative) Ur Leukocyte Esterase (Negative) Urine WBC (Auto) (0-5) /hpf Urine RBC (Auto) (0-4) /hpf U Hyaline Cast (Auto) (0-5) /lpf U Epithel Cells (Auto) (0-5) /lpf Urine Bacteria (Auto) (Negative) COVID-19 Eval Order SARS-CoV-2 (PCR) (Negative) Blood Type O Positive Antibody Screen NEGATIVE Medications Administered Medication List Hydromorphone HCl (Hydromorphone Inj 0.5 Mg/0.5 Ml Syr) 0.5 mg IV Q3H PRN PRN Reason: Pain (6,7,8,9,10) Stop: 03/26/21 21:03 Last Admin: 03/13/21 07:51 Dose: 0.5 mg Documented by: [id number] Admin: 03/12/21 23:48 Dose: 0.5 mg Documented by: [id number] Insulin Aspart (Insulin Aspart 100 Units/Ml 3 Ml Pen) 0 units SC Q4 JOSÉ MIGUEL Stop: 04/12/21 00:00 Last Admin: 03/13/21 09:43 Dose: Not Given Documented by: [id number] Admin: 03/13/21 05:13 Dose: Not Given Documented by: [id number] Admin: 03/13/21 00:40 Dose: Not Given Documented by: [id number] Levothyroxine Sodium (Levothyroxine Sodium 112 Mcg Tablet) 112 mcg PO [id number] JOSÉ MIGUEL Stop: 04/12/21 06:29 Last Admin: 03/13/21 06:23 Dose: Not Given Documented by: [id number] Senna/Docusate Sodium (Docusate Sodium/Senna 50/8.6mg Tab) 2 tab PO HS JOSÉ MIGUEL Stop: 04/11/21 21:03 Last Admin: 03/12/21 22:45 Dose: 2 tab Documented by: [id number] Discontinued Medications Atorvastatin Calcium (Atorvastatin 40 Mg Tab) 40 mg PO DAILY JOSÉ MIGUEL Stop: 04/12/21 08:59 Last Admin: 03/13/21 10:06 Dose: Not Given Documented by: [id number] Ferrous Sulfate (Ferrous Sulfate 325 Mg Tab) 325 mg PO QAM JOSÉ MIGUEL Stop: 04/12/21 08:59 Last Admin: 03/13/21 10:06 Dose: Not Given Documented by: [id number] Sodium Chloride (Nss 1000ml) 1,000 mls @ 250 mls/hr IV .Q4H JOSÉ MIGUEL Stop: 03/12/21 18:44 Last Infusion: 03/12/21 19:04 Dose: 0 mls/hr Documented by: [id number] Admin: 03/12/21 14:52 Dose: 250 mls/hr Documented by: [id number] Lactated Ringer's (Lr) 1,000 mls @ 90 mls/hr IV .Q11H7M JOSÉ MIGUEL Stop: 04/11/21 21:03 Last Admin: 03/13/21 09:05 Dose: 90 mls/hr Documented by: [id number] Cosigned by: [id number] Infusion: 03/13/21 09:05 Dose: 90 mls/hr Documented by: [id number] Cosigned by: [id number] Admin: 03/12/21 22:39 Dose: 90 mls/hr Documented by: [id number] Sodium Chloride (Nss) 500 mls @ 999 mls/hr IV .Q31M ONE Stop: 03/13/21 09:15 Last Infusion: 03/13/21 09:45 Dose: 0 mls/hr Documented by: [id number] Admin: 03/13/21 08:37 Dose: 999 mls/hr Documented by: [id number] Cosigned by: [id number] Sodium Chloride (Nss 1000ml) 500 mls @ 999 mls/hr IV .Q31M ONE Stop: 03/13/21 10:11 Last Infusion: 03/13/21 10:24 Dose: 0 mls/hr Documented by: [id number] Admin: 03/13/21 09:53 Dose: 999 mls/hr Documented by: [id number] Miscellaneous (Patient's Height And/Or Weight Needed) 1 ea N/A Q2H [facility] Stop: 04/11/21 21:29 Last Admin: 03/12/21 22:40 Dose: Not Given Documented by: [id number] Morphine Sulfate (Morphine Sulfate 4 Mg/Ml 1 Ml Carp\Vial) 4 mg IV Q1H PRN PRN Reason: Severe Pain (Rating 7,8,9,10) Stop: 03/26/21 14:33 Last Admin: 03/12/21 19:04 Dose: 4 mg Documented by: [id number] Admin: 03/12/21 14:52 Dose: 4 mg Documented by: [id number] Ondansetron HCl (Ondansetron Inj 2 Mg/Ml 2 Ml Vial) 4 mg IV NOW STA Stop: 03/12/21 14:38 Last Admin: 03/12/21 14:52 Dose: 4 mg Documented by: [id number] Pantoprazole Sodium (Pantoprazole 40 Mg Tab) 40 mg PO QAM JOSÉ MIGUEL Stop: 04/12/21 08:59 Last Admin: 03/13/21 10:06 Dose: Not Given Documented by: [id number] (1) Fracture of hip, right, closed Encounter type: initial encounter Qualified Code(s): S72.001A - Fracture of unspecified part of neck of right femur, initial encounter for closed fracture
[2021-03-13] MEDS ORDERED: NOREPINEPHRINE/D5W 8 MG/508 ML BAG IV SCH (12:15)
[2021-03-13] MEDS ORDERED: LORazepam 0.5 MG/1 ML VIAL IV PRN (12:20)
[2021-03-13] MEDS ORDERED: LORazepam 0.5 MG TAB PO PRN (12:20)
[2021-03-13] MEDS ORDERED: BUPIVACAINE 0.25% 30 ML VIAL ONE (12:32)
--- NOTE | 2021-03-13 12:36 | XCELERA ---
[id number]
--- NOTE | 2021-03-13 12:54 | Procedure Note ---
Procedure Note Date of Service March 13, 2021 Note Right fascia iliac a block under ultrasound guidance Informed consent was obtained and witnessed. A timeout was performed. Patient was not given any IV sedation for the procedure. He was placed on standard monitors. Ultrasound guidance was utilized. Next the right groin was prepped with chlorhexidine and sterile drapes were applied. Ultrasound probe cover sterilely placed. Using a 22-gauge 3.5 inch Ultravue needle the fascia iliaca plane was identified and 30 mL of solution containing 10 mL of Exparel and 20 mL of 0.25% bupivacaine was administered in 5 mL aliquots after negative aspiration for heme. The patient tolerated the procedure well and no bleeding was noted. Coding
--- NOTE | 2021-03-13 13:37 | Palliative Care Consultation ---
Date of Consultation March 13, 2021 Assessment & Plan (1) Palliative care encounter: Mr. Blake is a 75 year old male who presented to the [facility] via EMS after he tripped over a rug at home and landed on his right hip. Head CT and right hip x-ray was performed and results of the xray revealed an intertrochanteric fracture. He has significant and complex cardiac history that includes: CAD s/p CBAG x4 1993 with repeat grafting in 2012 with bioprosthetic AVR, Cath in 2019- total complete heart block with Dual chamber pacemaker placed in 2012, afib/aflutter and pulmonary HTN, DM2, diabetic foot ulcer with osteomyelitis, and CKD III. Orthopedics was consulted and conservative man agement was discussed. Anesthesia placed a right fascia iliac block for pain management. The ICU physician spoke to the family and all were in agreement to discuss comfort focused care. Palliative Medicine was consulted to continue this discussion. I met with the patient in the ICU room 101. His , Kristal, was at his bedside. Patient was asleep with some breathing changes and unable to partici bedoya in any conversation. Kristal and I then went to the waiting area where her son, Glenn, was sitting and we reviewed conversation that Dr. Munson had with family. We discussed the patients poor functional status at home with overall fragility and agitation as he felt often that he was losing ability to be independent. Both family members indicated that there was not much that brought him sabina recently, aside from talking about politics. All were in agreement to proceed with comfort focused care and monitor how he progresses. In evaluating Mr. Blake, he did appear to be in the last few days of his life. Appropriate medications were ordered, including Dilaudid due to the patients worsening kidney function. Palliative will follow to support family and continue to asses pain and symptom management needs. (2) Intertrochanteric fracture of femur: (3) Presence of permanent cardiac pacemaker: History of Present Illness Reason for Consultation: Goals of care Requesting Physician: Dr. Munson Attending Physician: Ida Segovia MD History of Present Illness Mr. Blake is a 75 year old male who presented to the [facility] via EMS after he tripped over a rug at home and landed on his right hip. Head CT and right hip x-ray was performed and results of the xray revealed an intertrochanteric fracture. He has significant and complex cardiac history that includes: CAD s/p CBAG x4 1993 with repeat grafting in 2012 with bioprosthetic AVR, Cath in 2019- total complete heart block with Dual chamber pacemaker placed in 2012, afib/aflutter and pulmonary HTN, DM2, diabetic foot ulcer with osteomyelitis, and CKD III. Orthopedics was consulted and conservative management was discussed. Anesthesia placed a right fascia iliac block for pain management. The ICU physician spoke to the family and all were in agreement to discuss comfort focused care. Palliative Medicine was consulted to continue this discussion. Please see A/P for further details. Thanks for involving Palliative Medicine with this unfortunate scenario. Allergies Allergy/AdvReac Type Severity Reaction Status Date / Time sulfamethoxazole AdvReac Severe Hyperkalcem Verified 03/12/21 17:02 [From Bactrim] ia trimethoprim [From Bactrim] AdvReac Severe Hyperkalcem Verified 03/12/21 17:02 ia Home Medications Medication Instructions Recorded Confirmed Type vit C 250 mg-vit E 90 mg-zinc 40 1 tab PO BID 01/04/19 03/12/21 History mg-copper 1 by-jkgxcd-qqiase capsule (PreserVision AREDS-2) folic acid 800 mcg tablet 800 mcg PO HS 01/29/19 03/12/21 History acyclovir 400 mg tablet 400 mg PO HS 08/06/19 03/12/21 History nitroglycerin 0.4 mg sublingual 0.4 mg SL Q5M PRN 11/05/19 03/12/21 History tablet (Nitrostat) ferrous sulfate 325 mg (65 mg 325 mg PO UD 03/13/20 03/12/21 History iron) tablet,delayed release pantoprazole 40 mg tablet,delayed 40 mg PO QAM #90 tab 08/08/20 03/12/21 Rx release (Protonix) apixaban 2.5 mg tablet (Eliquis) 2.5 mg PO BID 01/18/21 03/12/21 History atorvastatin 40 mg tablet 40 mg PO DAILY 01/18/21 03/12/21 History calcium carb,cit ER 600 mg-vit D3 1 tab PO HS #90 tab 02/02/21 03/12/21 Rx 12.5 mcg (500 unit) tablet,ext.rel (Citracal-D3 Slow Release) insulin lispro 100 unit/mL 100 unit CONTINUOUS SUBCUTANEOUS 03/07/21 03/12/21 Rx subcutaneous solution (Humalog INFUSION DAILY #9 vial U-100 Insulin) cholecalciferol (vitamin D3) 25 25 mcg PO DAILY 03/12/21 03/12/21 History mcg (1,000 unit) tablet levothyroxine 112 mcg tablet 112 mcg PO .6XW 03/12/21 03/12/21 History (Synthroid) vitamin B complex and vitamin C 1 cap PO DAILY 03/12/21 03/12/21 History no.20-folic acid 1 mg capsule (Holland Caps) Patient History Medical History (Updated 03/13/21 @ 16:33 by FAITH Ramos) Anemia Aortic stenosis s/p AVR (2012) Ascending aortic aneurysm under surveillance by Dr. Mendoza (stable since 2005) Basal cell carcinoma of left forehead CAD (coronary artery disease) IBRAHIMA (05/2019), + stent 2006, CABGx3 (1993) CHF (congestive heart failure) Chronic kidney disease, stage 4 (severe) [place] with Dr. 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, managed with low dose furosemide Type 1 diabetes mellitus insulin pump Surgical History History of amputation of toe Right big toe partial amputation: 01/19/19: MAC sedation at [facility] History of aortic valve replacement 2012 History of appendectomy History of arthroscopy of left shoulder History of cardiac cath 05/2019 [facility] w/ 1 drug eluting stent 2016 - [place] - NO STENTS/ANGIOPLASTY 2006 - [facility] [place] - 1 STENT PLACED 2011 - [facility] - NO STENTS 1993 --> CABG History of coronary artery bypass graft x 3 1993 History of cystoscopy W/ STONE EXTRACTION 03/20/17: LMA #5 History of esophagogastroduodenoscopy (EGD) History of gastric bypass 20 YEARS AGO - FOR DM History of hand surgery Lt History of inguinal hernia repair Rt 03/02/14: MAC #4, ETT #7.5, Oral, Grade 2 View History of laminectomy CERVICAL SPINE History of radiofrequency ablation procedure for cardiac arrhythmia History of tonsillectomy Hx of heart artery stent Presence of permanent cardiac pacemaker S/P left knee arthroscopy S/P right knee arthroscopy Status post endovenous radiofrequency ablation of saphenous vein Family History Father Coronary heart disease Myocardial infarction Brother Diabetes Mother Diabetes Cancer Denies family history of Colon cancer Ovarian cancer Prostate cancer Breast cancer Social History Smoking Status: Never smoker Second Hand Exposure: No; Hx Alcohol Use: No Hx Substance Use: No Preferred Language: Belarusian Communication Ability: Effective Visual Impairment: No Limitations 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: Normal 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 Beliefs That Will Affect Care: None marital status: Current Living Situation: Spouse current occupational status: retired current occupation: Retired Other Information That Helps Us Care for You: No Feels Safe at Home: Yes Safety Concerns: Feels Safe At This Time Assistive Devices: None Review of Systems Review of Systems: Unobtainable due to cognitive status Physical Exam Constitutional: + frail appearing and comfortable ENMT: Mouth: + dry oral mucous membranes Respiratory: normal respiratory effort Auscultation: + diminished lung sounds Gastrointestinal (Abdomen): Inspection/Auscultation: abdomen normal to inspection Percussion/Palpation: abdomen soft Skin: + pallor Results & Data ([facility]) Vital Signs (Past 12 Hours) Vital Signs Temp Pulse Pulse Resp BP Pulse Ox 03/13/21 11:08 36 C L 80 14 78/50 L 94 03/13/21 10:53 82/50 L 03/13/21 09:38 36.5 C 16 70/40 L 03/13/21 09:27 34.1 C L 80 17 70/48 L 94 03/13/21 08:17 36.6 C 12 73/45 L 100 03/13/21 08:00 81 PG Care Time/CCT Total # of Minutes Spent Total Time Spent with Patient: Total time spent is greater than 50% in coordination of care (as documented) at patient's floor/unit and/or counseling patient: 70 minutes with > 50% Of that time spent assessing the patient, discussing goals of care, addressing symptom management needs, and collaborating with IDT Coding Level of Care Code 25588 Initial Inpt Care Lvl 3 Diagnoses Palliative care encounter Z51.5 Intertrochanteric fracture of femur S72.143A Presence of permanent cardiac pacemaker Z95.0 Time Spent (min) 70
--- NOTE | 2021-03-13 15:14 | Electrocardiogram Report ---
Test Reason : Blood Pressure : / mmHG Vent. Rate : 080 BPM Atrial Rate : 070 BPM P-R Int : 000 ms QRS Dur : 160 ms QT Int : 438 ms P-R-T Axes : 000 123 -50 degrees QTc Int : 505 ms Poor data quality, interpretation may be adversely affected Ventricular-paced rhythm Underlying atrial fibrillation Abnormal ECG When compared with ECG of 20-JAN-2020 17:06, Vent. rate has increased BY 10 BPM Confirmed by Jean Parisi ([id number]) on 03/13/2021 3:13:46 PM Referred By: ED Confirmed By:Jean Parisi
--- NOTE | 2021-03-13 15:16 | Electrocardiogram Report ---
Test Reason : Blood Pressure : / mmHG Vent. Rate : 082 BPM Atrial Rate : 079 BPM P-R Int : 000 ms QRS Dur : 164 ms QT Int : 436 ms P-R-T Axes : 000 124 -39 degrees QTc Int : 509 ms Poor data quality, interpretation may be adversely affected Ventricular-paced rhythm with occasional Premature ventricular complexes Underlying atrial fibrillation Abnormal ECG When compared with ECG of 12-MAR-2021 14:53, (unconfirmed) Premature ventricular complexes are now Present Vent. rate has increased BY 2 BPM Confirmed by Jean Parisi ([id number]) on 03/13/2021 3:15:57 PM Referred By: REFERRED SELF Confirmed By:Jean Parisi
--- NOTE | 2021-03-13 15:22 | Progress Notes ---
DATE OF SERVICE: 03/13/2021 Mr. Blake is in bed. He is less arousable. He does awake and respond to questions, but hardly answe rs before he falls back to sleep. He does follow commands to move his arms. The right arm is sore. He can wiggle his toes. His vital signs are stable with the exception of his blood pressures have been low. Systolics are 70 , diastolics 50. X-rays of the shoulder, elbow and humerus show no evidence of acute fracture or dis location. A traction x-ray of the right leg does not help much in terms of alignment. This looks li ke a comminuted subtrochanteric fracture. Possibly a reverse obliquity with comminution intertrochan teric fracture. I asked Mr. Blake if we are still planning on surgery and he said no. He did not want to proceed wit h any further care. I offered any further questions or assistance that I may be able to do. I spoke to the nurse who confirmed that he and his family had elected for comfort measures. There is not [facility] in the way of documentation in the chart at this point as the process is probably in its beginning . I spoke with Dr. Segovia, who confirmed. At this time, it does not look like we will proceed with surgery. However, just in case, we will james p him n.p.o. after midnight and recheck things in the morning. We will keep him on the OR schedule j ust in case there are any changes. Both feet are warm. Job ID: [id number]
[2021-03-13] MEDS ORDERED: FOLIC ACID 400 MCG TAB PO SCH (21:00)
[2021-03-13] MEDS ORDERED: CALCIUM CITRATE 950 MG TAB PO SCH (21:00)
--- NOTE | 2021-03-14 00:02 | Communication Note ---
Date of Service: March 14, 2021 Called by nursing staff approximately 2300 as patient expressed desire to change CODE STATUS. Upon my presentation to bedside, patient had called family with nursing assistance and with the confusion and commotion of today's events and this transition to comfort measures they were prompted to come into the hospital. Patient expressing desire to "do everything", but not seemingly tracking conversations or following simple instructions. Upon review of patient's chart, extensive discussions earlier today when patient was more lucid and with family demonstrated his desire to progress to comfort measures. With family on their way, decision was to have additional group conversation with family and patient in regards to CODE STATUS and goals of care. Patient's family present at at approximately 0000, lengthy conversation with them prior to group conversation demonstrated that over the last 2 years with his health he had been increasingly declining, and throughout that time had expressed that he would not want aggressive or life sustaining measures if it meant he needed to be hooked up to machines. They remained highly confused as to how/why he had this sudden change after earlier conversations today. After extensive conversations, and conversations in patient's room, decision was that patient did not appear to understand the conversation being had about continued care. With this uncertainty family would like to maintain comfort measures status, with implementation of pain medicines as he continues to appear uncomfortable secondary to his hip fracture. Called to bedside at 0434 as patient had . Family at bedside. They would not like to proceed with an autopsy at this time, would like his body transferred to [facility]. Resident Activity Tracking Resident Involvement: Resident Care Provided Care Provided: Adult Hospital Medicine
[2021-03-14] MEDS ORDERED: MoRPHine SULFATE 2 MG/ML CARP IV PRN (00:21)
[2021-03-14] MEDS ORDERED: ATROPINE SULFATE 1% OP SOLN 5 ML BTL SL PRN (00:21)
[2021-03-14] MEDS ORDERED: HYOSCYAMINE SULFATE 0.125 MG TAB SL PRN (00:21)
[2021-03-14] MEDS ORDERED: GLYCOPYRROLATE 0.2 MG/ML VIAL IV PRN (00:21)
--- NOTE | 2021-03-14 04:36 | Death Pronouncement Note ---
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
[2021-03-14] MEDS ORDERED: ceFAZolin 2000MG 2,000 MG/15 ML SYR IV SCH (06:00)
--- NOTE | 2021-03-14 10:08 | Discharge Summary ---
Date of Service March 14, 2021 Admission HPI Per Admitting Provider 75 YOM with past medical history of: CBAG x4 1993 with repeat grafting in 2012 with bioprosthetic Aortic Valve placement, Cath in 2019- (See Cardiology report 07/16) complete heart block with Dual chamber pacemaker 2012, afib/aflutter 2017- on Apixaban at 2.5 mg PO BID, Pulmonary HTN diagnosed with cardiac cath in 06/14- PAP 55 with mean of 36- with right sided heart failure, DM (on insulin pump), diabetic foot ulcer with osteomyelitis (well healing right heal), CKD III, weight loss, RTA type 4 (noted low HCO3). Patient comes to the EMD today [place]. He reports tripping over a rug and directly landing on his right hip. He felt immediate pain to that side. He was brought to the EMD via EMS. In the EMD he had CXR done, bilateral hip films, shoulder Xray, CT scan of the head performed. His xray of his right hip revealed displaced and comminuted intertrochanteric fracture within the proximal right femur. Orthopaedics was consulted. Patient took his Apixaban this morning (03/12/21). For his heart disease- he is able to lay flat without dyspnea and able to perform small tasks around the house. He recently had his pacemaker lower rate set to 80BPM and his Bystolic w as discontinued. The patient remains with some lower extremity edema that goes to his knee, he reports that his BUMEX was discontinued secondary goal diuresing and weight decrease. He has never smoked and reports his A1C in the 6 range. His last ECHO appears to be in November 12 noted with elevated PA pressures, normal Aortic Valve and mild MR. EF 60% with dilated RV- TPASE 0.8. Will consult his [facility] that follows him as outpatient evaluate him as well. 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 Patient perioperative risk for AK or Cardiac Arrest is 1.42%, His revised ARLIN criteria for AK, PE, V-fib, Cardiac arrest >11%. Principal Diagnosis Hip fracture Discharge Exam Please refer to note. Discharge Data Allergies Allergy/AdvReac Type Severity Reaction Status Date / Time sulfamethoxazole AdvReac Severe Hyperkalcem Verified 03/12/21 17:02 [From Bactrim] ia trimethoprim [From Bactrim] AdvReac Severe Hyperkalcem Verified 03/12/21 17:02 ia Consultations 03/12/21 17:06 ED Decision to Admit Stat 03/12/21 21:04 Consult Anesthesiology Routine Consult Anesthesiology Routine Consult Cardiology Routine Consult Orthopedic Surgery Routine 03/13/21 10:14 Consult Lace Burn Out Tender Routine 03/13/21 12:20 Consult Palliative Care Routine Procedures Performed Operation Date: 03/14/21 10:00 <No data on this case meets the specified criteria> Ordered Studies 03/12/21 14:53 CT head/brain wo con Stat 03/13/21 12:33 US - OR guided needle placemen Routine 03/14/21 FL hip RT 2-3V Routine Hospital Course (1) Hypotension (arterial): Talon Blake is a 75-year-old male with a significant past medical history for coronary artery disease, history of ischemic cardiomyopathy, status post complete heart block with dual-chamber pacemaker in July 2012 with generator change September 12, 2020, atrial fibrillation, atrial flutter on apixaban status post flutter ablation October 2018, pulmonary hypertension, bioprosthetic aortic valve replacement, chronic right-sided diastolic heart failure, chronic kidney disease stage IV who was [facility] due to mechanical fall leading to an right intertrochanteric hip fracture. Intertrochanteric Right Hip Fracture -Orthopedic surgery initially recommending surgical intervention However patient got significantly hypotension with pain medication Ultimately, his blood pressure did not respond to IV fluid boluses --at this point patient and family were requesting everything possible be done and as such, patient was transferred to ICU At this point, patient and family expressed that they did not want a move forward with any procedures and elected to move to a comfort only approach after conversation with ICU attending Palliative care consulted comfort orders placed Per ICU providers discussion with anesthesiology, peripheral nerve block was placed to help with the hip pain and decrease his need for opiates Per overnight resident around midnight patient had gotten more confused and was requesting desire to change his CODE STATUS and wanted doctors to "do everything", but not seemingly tracking conversations or following simple instructions. 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
== END 2021-03-14 05:25 | disposition expired | DRG 536 ==
LOC: ED 14:28 → EDINP 17:45 → SUATTDRO 17:45 → 2W 21:20 → 1E 03-13 10:26 → 3E 03-13 12:26